=== PATIENT | male | born 1980 | race Caucasian/White ===

== ENCOUNTER → 2017-12-31 | Outpatient (CLI) | payer OTHER | END | disposition home or self-care (01) | LOC: LABWHC1 10:29 | PROVIDERS: ATTEND Psychiatry & Neurology Neurology | DX: G40.209 Localization-related (focal) (partial) symptomatic epilepsy and epileptic syndromes with complex partial seizures, not intractable, without status epilepticus (principal) | CPT/HCPCS: 36415; 80175 ==

== ENCOUNTER → 2018-01-05 | Outpatient (CLI) | payer OTHER ==
[2018-01-05 12:05] LABS: Cholesterol 190 mg/dL (<200); HDL Cholesterol 31 mg/dL (40-60)
[2018-01-05 12:18] LABS: Triglycerides 1000 mg/dL (<150)
== END | disposition home or self-care (01) ==
LOC: LABWHC1 11:24
PROVIDERS: ATTEND Physician Assistant Medical
DX: E11.65 Type 2 diabetes mellitus with hyperglycemia (principal); E78.5 Hyperlipidemia, unspecified; E55.9 Vitamin D deficiency, unspecified
CPT/HCPCS: 36415; 80061; 82306

== ENCOUNTER → 2018-10-01 | Outpatient (CLI) | payer OTHER | LOC: LABWHC1 10:37 | PROVIDERS: ATTEND Psychiatry & Neurology Neurology | DX: G40.209 Localization-related (focal) (partial) symptomatic epilepsy and epileptic syndromes with complex partial seizures, not intractable, without status epilepticus (principal) | CPT/HCPCS: 36415; 80175 ==

== ENCOUNTER → 2018-10-29 | Outpatient (CLI) | payer OTHER ==
[2018-10-29 09:11] LABS: Basophils # (A) 0.1 k/uL (0-0.2); Basophils % (A) 1 %; Eosinophils # (A) 0.3 k/uL (0-0.7); Eosinophils % (A) 2 %; HCT 48.9 % (39.0-53.0); Lymphocytes # (A) 3.8 k/uL (1.0-4.8); Lymphocytes % (A) 21 %; MCHC 32.8 g/dL (31.0-37.0); MCV 94.4 fL (80.0-100.0); Mean Platelet Volume 6.2; Monocytes % (A) 5 %; Neutrophils % (A) 70 %; Platelet Count 282 k/uL (150-450); RBC 5.18 m/uL (4.30-5.90); RDW 13.8 % (11.5-15.5); WBC 18.5 k/uL (3.8-10.6)
[2018-10-29 16:07] LABS: Carbamazepine (Tegretol) 6.8 ug/mL (4.0-12.0)
[2018-10-29 16:35] LABS: Folate, Serum 8.2 ng/mL; Vitamin D 25 Hydroxy 24.2 ng/mL (30.0-100.0)
[2018-10-29 17:12] LABS: ALT 37 U/L (10-49); AST 21 U/L (14-35); Albumin/Globulin Ratio 2.15 (1.60-3.17); Alkaline Phosphatase 59 U/L (41-126); Bilirubin, Conjugated <0.20 mg/dL (0.20-0.40); Calcium 9.9 mg/dL (8.7-10.3); Carbon Dioxide 27.5 mmol/L (21.6-31.8); Chloride 97 mmol/L (96-109); Cholesterol 186 mg/dL (0-200); Glucose 182 mg/dL (70-110); Magnesium 1.8 mg/dL (1.5-2.4); Potassium 4.7 mmol/L (3.5-5.5); Sodium 133 mmol/L (135-145); Total Bilirubin 0.3 mg/dL (0.3-1.2); Total Protein 6.3 g/dL (6.2-8.2)
== END | disposition home or self-care (01) ==
LOC: LABWHC1 08:28
PROVIDERS: ATTEND Psychiatry & Neurology Psychiatry
DX: F25.1 Schizoaffective disorder, depressive type (principal)
CPT/HCPCS: 36415; 80053; 80061; 80156; 82248; 82306; 82607; 82746; 83036; 83540; 83721; 83735; 84439; 84443; 85025

== ENCOUNTER → 2018-12-28 | Outpatient (CLI) | payer OTHER ==
[2018-12-28 17:04] LABS: Anion Gap 8.1 mmol/L (4.00-12.00); Calcium 10.1 mg/dL (8.7-10.3); Carbon Dioxide 24.9 mmol/L (21.6-31.8); Lithium 0.5 mmol/L (1.0-1.2); Potassium 4.1 mmol/L (3.5-5.5); T4, Free (Free Thyroxine) 1.4 ng/dL (0.80-1.80)
== END ==
LOC: LABWHC1 08:06
PROVIDERS: ATTEND Physician Assistant
DX: F25.1 Schizoaffective disorder, depressive type (principal); Z79.899 Other long term (current) drug therapy
CPT/HCPCS: 36415; 80048; 80178; 84439; 84443

== ENCOUNTER → 2019-01-07 | Outpatient (CLI) | payer OTHER ==
[2019-01-07 16:20] LABS: T4, Free (Free Thyroxine) 1.2 ng/dL (0.80-1.80)
[2019-01-07 16:21] LABS: Anion Gap 5.4 mmol/L (4.00-12.00); Calcium 9.7 mg/dL (8.7-10.3); Carbon Dioxide 27.6 mmol/L (21.6-31.8); Lithium 0.8 mmol/L (1.0-1.2); Potassium 4.8 mmol/L (3.5-5.5)
== END | disposition home or self-care (01) ==
LOC: LABWHC1 08:57
PROVIDERS: ATTEND Physician Assistant
DX: F25.1 Schizoaffective disorder, depressive type (principal); Z79.899 Other long term (current) drug therapy
CPT/HCPCS: 36415; 80048; 80178; 84439; 84443

== ENCOUNTER → 2019-01-22 | Outpatient (CLI) | payer OTHER ==
[2019-01-22 19:08] LABS: Anion Gap 12.5 mmol/L (4.00-12.00); Calcium 11.3 mg/dL (8.7-10.3); Carbon Dioxide 20.5 mmol/L (21.6-31.8); Lithium 0.7 mmol/L (1.0-1.2)
== END ==
LOC: LABWHC1 07:46
PROVIDERS: ATTEND Physician Assistant
DX: G40.209 Localization-related (focal) (partial) symptomatic epilepsy and epileptic syndromes with complex partial seizures, not intractable, without status epilepticus (principal); Z79.899 Other long term (current) drug therapy
CPT/HCPCS: 36415; 80048; 80175; 80178

== ENCOUNTER → 2019-01-27 | Outpatient (CLI) | payer OTHER | END | disposition home or self-care (01) | LOC: LABWHC1 10:01 | PROVIDERS: ATTEND Internal Medicine | DX: Z53.9 Procedure and treatment not carried out, unspecified reason (principal) ==

== ENCOUNTER → 2019-05-04 | Outpatient (CLI) | payer OTHER ==
--- NOTE | 2019-05-04 08:55 | XR ---
EXAMINATION TYPE: XR Hip Complete RT DATE OF EXAM: 05/04/2019 COMPARISON: NONE HISTORY: 39-year-old male chronic pain TECHNIQUE: 2 views FINDINGS: Hip joint space appears maintained. No acute fracture, subluxation, or dislocation. IMPRESSION: No acute osseous abnormality seen.
[2019-05-05 14:21] LABS: Lamotrigine (Lamictal) 8.5 ug/mL (2.0-15.0)
[2019-05-06 09:29] LABS: Topiramate <0.5 ug/mL (2.0-20.0)
== END | disposition home or self-care (01) ==
LOC: LABWHC1 07:34
PROVIDERS: ATTEND Psychiatry & Neurology Neurology
DX: G40.209 Localization-related (focal) (partial) symptomatic epilepsy and epileptic syndromes with complex partial seizures, not intractable, without status epilepticus (principal)
CPT/HCPCS: 36415; 73502; 80175; 80201

== ENCOUNTER → 2019-06-02 | Outpatient (CLI) | payer OTHER ==
[2019-06-02 17:31] LABS: Hemoglobin A1C 6.2 % (4.0-6.0)
[2019-06-04 09:15] LABS: Lamotrigine (Lamictal) 7.6 ug/mL (2.0-15.0)
== END | disposition home or self-care (01) ==
LOC: LABWHC1 08:38
PROVIDERS: ATTEND Internal Medicine
DX: G40.209 Localization-related (focal) (partial) symptomatic epilepsy and epileptic syndromes with complex partial seizures, not intractable, without status epilepticus (principal); E11.65 Type 2 diabetes mellitus with hyperglycemia
CPT/HCPCS: 36415; 80175; 80201; 83036

== ENCOUNTER → 2019-08-17 | Outpatient (CLI) | payer OTHER ==
[2019-08-17 15:12] LABS: HCT 47.9 % (39.0-53.0); HGB 16.3 gm/dL (13.0-17.5); MCH 31.9 pg (25.0-35.0); MCHC 34.1 g/dL (31.0-37.0); MCV 93.3 fL (80.0-100.0); Mean Platelet Volume 6.7; Platelet Count 231 k/uL (150-450); RBC 5.13 m/uL (4.30-5.90); RDW 12.8 % (11.5-15.5); WBC 18.9 k/uL (3.8-10.6)
== END | disposition home or self-care (01) ==
LOC: LABWHC1 14:44
PROVIDERS: ATTEND Podiatrist Foot & Ankle Surgery
DX: A49.9 Bacterial infection, unspecified (principal)
CPT/HCPCS: 36415; 85027

== ENCOUNTER → 2019-10-15 | Outpatient (CLI) | payer OTHER ==
[2019-10-15 11:50] LABS: African American GFR (CKD) 110.2 (60.0-200.0); Anion Gap 9.9 mmol/L (4.00-12.00); Calcium 10.1 mg/dL (8.7-10.3); Carbon Dioxide 28.1 mmol/L (21.6-31.8); Chol/HDL Ratio 6.32; Non-African American GFR(CKD) 95.1 (60.0-200.0); Potassium 4.3 mmol/L (3.5-5.5)
[2019-10-15 13:54] LABS: Hemoglobin A1C 6.5 % (4.0-6.0)
[2019-10-15 21:20] LABS: Urine Creatinine 120.3 mg/dL
== END | disposition home or self-care (01) ==
LOC: LABWHC1 06:55
PROVIDERS: ATTEND Internal Medicine
DX: E11.65 Type 2 diabetes mellitus with hyperglycemia (principal)
CPT/HCPCS: 36415; 80048; 80061; 82043; 82570; 83036; 83721; 84300

== ENCOUNTER → 2019-12-10 | Day surgery (SDC) | payer OTHER ==
[2019-12-07 11:43] VITALS: BMI 28.9
[~2019-12-10] MED LIST: LACTATED RINGERS 1,000 ML IV ONE; LIDOCAINE 1% (10MG/ML) FOR IV START SQ ONE; PROPOFOL 10 MG/ML 20 ML VIAL IV ONE
[2019-12-10 07:15] VITALS: RESP 16; TEMP 97
[2019-12-10 07:22] LABS: Glucose,Whole Blood 134 mg/dL (75-99)
--- NOTE | 2019-12-10 08:07 | P.PCN ---
Date of Procedure: 12/10/19 Procedure(s) Performed: BRIEF HISTORY: Patient is a 39-year-old pleasant male scheduled for an elective colonoscopy as a part of evaluation of intermittent rectal bleeding for the last few months duration. He has bleeding almost on a regular basis. He denies any significant change in bowel habits PROCEDURE PERFORMED: Colonoscopy with snare polypectomy. PREOPERATIVE DIAGNOSIS: Intermittent rectal bleeding. IV sedation per Anesthesia. PROCEDURE: After informed consent was obtained, the patient, was brought into the endoscopy unit. IV sedation was administered by Anesthesia under continuous monitoring. Digital rectal examination was normal. Initially the Olympus CF-160 flexible video colonoscope was then inserted in the rectum, gradually advanced into the cecum without any difficulty. Careful examination was performed as the scope was gradually being withdrawn. Ileocecal valve and the appendiceal orifice were visualized and appeared normal. Prep was excellent. Mucosa of the cecum, ascending colon, transverse colon, descending colon, appeared normal. In the sigmoid colon There was a 1 cm broad-based polyp removed by snare polypectomy. In the rectosigmoid colon there was a 1 cm polyp removed by snare polypectomy. Rest of the sigmoid colon, and rectum appeared normal. Retroflexion was performed in the rectum and weight 2 internal hemorrhoids were seen. The patient tolerated the procedure well. IMPRESSION: 1 cm sigmoid colon polyp status post polypectomy 1 cm rectosigmoid polyp status post polypectomy Grade 2 internal hemorrhoids. RECOMMENDATIONS: Findings of this examination were discussed with the patient as well as a family. He was advised to follow with the biopsy results. If the biopsy shows an adenoma he can have a repeat colonoscopy in 3 years. In the meantime he was advised to be a high-fiber diet and take fiber supplements and regular basis and avoid straining and constipation.
[2019-12-10 08:22] VITALS: BP 124/93; PULSE 83
== END ==
LOC: ORWHC2ENDO 06:48
PROVIDERS: ATTEND Internal Medicine Gastroenterology
DX: D12.7 Benign neoplasm of rectosigmoid junction (principal); D12.5 Benign neoplasm of sigmoid colon; K64.1 Second degree hemorrhoids; I10 Essential (primary) hypertension; E78.5 Hyperlipidemia, unspecified; J44.9 Chronic obstructive pulmonary disease, unspecified; E11.9 Type 2 diabetes mellitus without complications; F31.9 Bipolar disorder, unspecified; R56.9 Unspecified convulsions; K21.9 Gastro-esophageal reflux disease without esophagitis; F17.200 Nicotine dependence, unspecified, uncomplicated; Z79.890 Hormone replacement therapy; Z79.899 Other long term (current) drug therapy; Z79.4 Long term (current) use of insulin; Z79.82 Long term (current) use of aspirin; Z97.2 Presence of dental prosthetic device (complete) (partial); Z98.890 Other specified postprocedural states; Z90.79 Acquired absence of other genital organ(s)
CPT/HCPCS: 88305; 45385; J2704

== ENCOUNTER → 2020-08-01 | Outpatient (CLI) | payer OTHER | END | disposition home or self-care (01) | LOC: LABWHC1 13:29 | PROVIDERS: ATTEND Surgery | DX: U07.1 COVID-19 (principal) ==

== ENCOUNTER → 2020-08-07 | Outpatient (CLI) | payer OTHER ==
[2020-08-08 08:20] LABS: Lamotrigine (Lamictal) 6.1 ug/mL (2.0-15.0)
== END | disposition home or self-care (01) ==
LOC: LABWHC1 11:03
PROVIDERS: ATTEND Psychiatry & Neurology Neurology
DX: G40.209 Localization-related (focal) (partial) symptomatic epilepsy and epileptic syndromes with complex partial seizures, not intractable, without status epilepticus (principal)
CPT/HCPCS: 36415; 80175; 80201

== ENCOUNTER → 2020-08-07 | Outpatient (CLI) | payer OTHER ==
[2020-08-07 15:34] LABS: HCT 39.6 % (39.0-53.0); HGB 13.7 gm/dL (13.0-17.5); MCH 31.7 pg (25.0-35.0); MCHC 34.7 g/dL (31.0-37.0); MCV 91.6 fL (80.0-100.0); Mean Platelet Volume 6.7; Platelet Count 234 k/uL (150-450); RBC 4.33 m/uL (4.30-5.90); RDW 14.1 % (11.5-15.5); WBC 11.5 k/uL (3.8-10.6)
[2020-08-07 15:41] LABS: African American GFR (CKD) >90 (>60 ml/min/1.73 sqM); Blood Urea Nitrogen 15 mg/dL (9-20); Non-African American GFR(CKD) >90 (>60 ml/min/1.73 sqM); Potassium 3.9 mmol/L (3.5-5.1)
== END | disposition home or self-care (01) ==
LOC: LABPAT 10:59
PROVIDERS: ATTEND Surgery
DX: Z01.818 Encounter for other preprocedural examination (principal); K43.2 Incisional hernia without obstruction or gangrene; I10 Essential (primary) hypertension; E10.9 Type 1 diabetes mellitus without complications; Z79.4 Long term (current) use of insulin; Z79.899 Other long term (current) drug therapy
CPT/HCPCS: 82565; 84132; 84520; 85027; 86850; 86900; 86901; 93005

== ENCOUNTER 2020-08-08 08:42 | Day surgery (SDC) | payer OTHER ==
[2020-08-04 12:00] VITALS: BMI 29.0
[~2020-08-08 08:42] MED LIST changes: +DEXAMETHASONE SOD PHOSPHATE 4 MG/ML 1 ML VIAL IV ONE; +HEPARIN SODIUM,PORCINE 5,000 UNIT/ML 1 ML VIAL SQ ONE; -LACTATED RINGERS 1,000 ML IV ONE; +LACTATED RINGERS 1,000 ML IV SCH; +LIDOCAINE 1% (10MG/ML) FOR IV START INTRADERMA PRN; -LIDOCAINE 1% (10MG/ML) FOR IV START SQ ONE; +MIDAZOLAM 2 MG/2 ML VIAL IV PRN; +ONDANSETRON 4 MG/2 ML VIAL IVP ONE; -PROPOFOL 10 MG/ML 20 ML VIAL IV ONE
[2020-08-08 09:13] LABS: Glucose,Whole Blood 169 mg/dL (75-99)
[2020-08-08] MEDS ORDERED: GLYCOPYRROLATE 0.2 MG/ML 2 ML VIAL ONE (10:26)
[2020-08-08] MEDS ORDERED: MIDAZOLAM 2 MG/2 ML VIAL ONE (10:26)
[2020-08-08] MEDS ORDERED: ROCURONIUM 10 MG/ML (10 ML VIAL) IV ONE (10:26)
[2020-08-08] MEDS ORDERED: KETOROLAC 15 MG/ML 1 ML VIAL ONE (10:26)
[2020-08-08] MEDS ORDERED: fentaNYL (PF) 50 MCG/ML 2 ML AMP ONE (10:26)
[2020-08-08] MEDS ORDERED: SUCCINYLCHOLINE CHLORIDE 100 MG/5 ML SYR IV ONE (10:26)
[2020-08-08] MEDS ORDERED: NEOSTIGMINE 1 MG/ML 10 ML VIAL ONE (10:26)
[2020-08-08] MEDS ORDERED: LIDOCAINE 1% INJ 10MG/ML (20 ML MDV) ONE (10:26)
[2020-08-08] MEDS ORDERED: LIDOCAINE 1%-EPI 1:100,000 20 ML VIAL SQ ONE (10:50)
--- NOTE | 2020-08-08 11:49 | P.OP ---
Date of Procedure: 08/08/20 Preoperative Diagnosis: Incisional hernia Postoperative Diagnosis: Incisional hernia Procedure(s) Performed: Robotic incisional hernia repair with mesh placement Anesthesia: ARLIN Surgeon: Jay Nelson Pathology: none sent Condition: stable Disposition: same day Indications for Procedure: 40-year-old male presented due to pain secondary to incisional hernia. He has had a previous umbilical hernia repair and states that he does have a bulge and pain around his hernia site. On exam, patient was noted to have a palpable hernia and this was confirmed with CT of the abdomen and pelvis. He presents today for robotic hernia repair. Risks, benefits and alternatives were provided to the patient and the patient did provide consent prior to attending the operating suite. Operative Findings: Incisional hernia containing omentum Description of Procedure: The patient was brought into the operating suite and placed in supine position. Gen. anesthesia with endotracheal intubation was performed as per anesthesia team. The right arm was tucked against the body and a footboard was applied. Chlorhexidine was used to prep the skin followed by application of sterile drapes. A timeout was performed to verify correct patient and correct procedure. Patient was confirmed to received perioperative IV antibiotics, bilateral SCDs and subcutaneous heparin for DVT prophylaxis. A 5 mm skin incision was made along the left midaxillary line at [place] point and the abdomen was entered under direct visualization using a Visiport. Pneumoperitoneum was achieved. The umbilical hernia was clearly visualized. An additional 8 mm trocar was placed in the left lower abdomen and a 12 mm trocar was placed in the mid left mid abdomen. The initial 5 mm trocar was upsized to an 8 mm trocar. The da Jessica robot was undocked. The 30 robotic camera was u sed. A robotic prograsp and monopolar scissors were inserted through the 8 mm robotic trochars. The hernia defect contained preperitoneal fat and omentum which were reduced using gentle traction and countertraction method. The falciform ligament was divided using monopolar scissors close to the anterior abdominal wall to create a landing zone for the mesh. A Switchfly system circular mesh was rolled and introduced to the abdominal cavity via the 12 mm trocar. The hernia defect was closed primarily with running suture using oh be lock by taking 1 cm bite on the fascia on either side of the defect. A Jaiden Guillory device was inserted through the middle of the hernia defect and the stay suture on the mesh was grasped to elevate the mesh against the anterior abdominal wall. The balloon was then inflated. The mesh was circumferentially sutured to the peritoneum of the anterior abdominal wall using 20V lock without any folds or kinks. The robot was then undocked. Camera was reinserted. All trocar sites were examined. No evidence of bleeding. The 12 mm trocar site was closed using transfer fascial suture of 0 Vicryl which were placed under direct visualization using a Jaiden-Bella device. The pneumoretroperitoneum was evacuated and all the skin incisions were closed using 4-0 Vicryl followed by Dermabond skin glue. The sponge, instrument and needle count were correct 2. Abdominal binder was applied. The patient was extubated and taken to postanesthesia care unit in stable condition.
[2020-08-08 11:50] VITALS: TEMP 97.4
[2020-08-08] MEDS: HYDROmorphone 0.5 MG/0.5 ML SYRINGE IVP PRN ×3 (11:56→12:09)
[2020-08-08] MEDS ORDERED: LACTATED RINGERS 1,000 ML IV ONE (12:05)
[2020-08-08 12:48] LABS: Glucose,Whole Blood 207 mg/dL (75-99)
[2020-08-08 12:52] VITALS: PULSE 66
[2020-08-08] MEDS ORDERED: HYDROcodone/APAP 5-325MG 1 EACH TAB ONE (12:56)
[2020-08-08] MEDS ORDERED: HYDROcodone/APAP 5-325MG 1 EACH TAB PO ONE (12:58)
[2020-08-08 13:14] VITALS: BP 117/72; RESP 16
== END 2020-08-08 13:38 | disposition home or self-care (01) ==
LOC: OR 08:42
PROVIDERS: ATTEND Surgery
DX: K42.0 Umbilical hernia with obstruction, without gangrene (principal); E11.9 Type 2 diabetes mellitus without complications; E78.5 Hyperlipidemia, unspecified; J45.909 Unspecified asthma, uncomplicated; I10 Essential (primary) hypertension; E87.1 Hypo-osmolality and hyponatremia; E53.8 Deficiency of other specified B group vitamins; E55.9 Vitamin D deficiency, unspecified; E03.9 Hypothyroidism, unspecified; G40.909 Epilepsy, unspecified, not intractable, without status epilepticus; K21.9 Gastro-esophageal reflux disease without esophagitis; F17.210 Nicotine dependence, cigarettes, uncomplicated; J44.9 Chronic obstructive pulmonary disease, unspecified; R56.9 Unspecified convulsions; F20.9 Schizophrenia, unspecified; Z87.19 Personal history of other diseases of the digestive system; Z98.890 Other specified postprocedural states; Z97.2 Presence of dental prosthetic device (complete) (partial); Z80.9 Family history of malignant neoplasm, unspecified; Z79.82 Long term (current) use of aspirin; Z79.890 Hormone replacement therapy; Z79.4 Long term (current) use of insulin; Z79.899 Other long term (current) drug therapy; Z88.8 Allergy status to other drugs, medicaments and biological substances
CPT/HCPCS: 49653; S2900; 86850; 86900; 86901

== ENCOUNTER → 2020-10-06 | Outpatient (CLI) | payer OTHER ==
[2020-10-06 16:14] LABS: Basophils % (A) 1 %; Eosinophils # (A) 0.2 k/uL (0-0.7); Eosinophils % (A) 2 %; HCT 45.6 % (39.0-53.0); HGB 14.8 gm/dL (13.0-17.5); Lymphocytes # (A) 1.9 k/uL (1.0-4.8); Lymphocytes % (A) 19 %; MCH 28.9 pg (25.0-35.0); MCHC 32.4 g/dL (31.0-37.0); MCV 89.3 fL (80.0-100.0); Mean Platelet Volume 6.7; Monocytes # (A) 0.5 k/uL (0-1.0); Monocytes % (A) 6 %; Neutrophils # (A) 6.5 k/uL (1.3-7.7); Neutrophils % (A) 68 %; Platelet Count 208 k/uL (150-450); RBC 5.11 m/uL (4.30-5.90); RDW 13.6 % (11.5-15.5); WBC 9.6 k/uL (3.8-10.6)
[2020-10-07 00:57] LABS: Urine Creatinine 138.7 mg/dL
[2020-10-07 03:47] LABS: Hemoglobin A1C 6.7 % (4.0-6.0)
[2020-10-07 03:55] LABS: African American GFR (CKD) 109.4 (60.0-200.0); Anion Gap 10.2 mmol/L (4.00-12.00); Calcium 10.1 mg/dL (8.7-10.3); Carbon Dioxide 27.8 mmol/L (21.6-31.8); Chol/HDL Ratio 5.81; Globulin 2.5 g/dL (1.6-3.3); Magnesium 1.9 mg/dL (1.5-2.4); Non-African American GFR(CKD) 94.4 (60.0-200.0); Total Bilirubin 0.3 mg/dL (0.2-1.2); Total Protein 7.5 g/dL (6.2-8.2)
[2020-10-07 16:03] LABS: Lamotrigine (Lamictal) 7.2 ug/mL (2.0-15.0)
== END | disposition home or self-care (01) ==
LOC: LABWHC1 15:17
PROVIDERS: ATTEND Internal Medicine
DX: G40.209 Localization-related (focal) (partial) symptomatic epilepsy and epileptic syndromes with complex partial seizures, not intractable, without status epilepticus (principal); E11.65 Type 2 diabetes mellitus with hyperglycemia; E55.9 Vitamin D deficiency, unspecified; E78.2 Mixed hyperlipidemia; E03.9 Hypothyroidism, unspecified
CPT/HCPCS: 36415; 80053; 80061; 80175; 80201; 82043; 82306; 82570; 82607; 83036; 83721; 83735; 84439; 84443; 85025

== ENCOUNTER → 2021-05-23 | Outpatient (CLI) | payer OTHER ==
[2021-05-23 14:26] VITALS: BP 130/84; PULSE 87; RESP 18; TEMP 98.5; BMI 26.4
--- NOTE | 2021-05-23 14:30 | P.HPBAR ---
Bariatric H&P - History & Physicial H&P Date: 05/23/21 History & Physicial: Visit/CC: Patient initial contact: Initial weight: Initial weight in pounds: Height: 5 ft 5 in Initial BMI: Last weight: Current weight: 72.121 kg Current weight in pounds: Current BMI: [place] body weight (based on NIH guidelines): Excess body weight loss: The patient is a 41 year-old M who presents for Bariatric Assessment. Highest weight of 330 pounds 9 years ago. Lowest weight is present. He did it on his own. He has seen the corporate compliance officer for severe panniculitis. He has lower back pain from his pannus. He has tried creams along the skin for severe panniculitis. He sees a neurologist for his back pain and reports his skin is adding to his back pain. He reports troubles with grooming and activities of daily living. He presents today for panniculectomy. He has lost over 140 pounds maintained. He has quit eating sweets. He has grade 3 panniculosis. Weight of pannus over 15 pounds. Recommend panniculectomy Request letters from neurologist and corporate compliance officer. Urine nicotine Correct vitamin deficiencies. 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, [facility] Past Anesthesia/Blood Transfusion Reactions: No Reported Reaction Past Psychological History: Anxiety, Bipolar, Depression, Panic Disorder, Schizophrenia Additional Psychological History / Comment(s): manic depression, paranoia Past Alcohol Use History: Rare Additional Past Alcohol Use History / Comment(s): smoking 1/2 PPD, started smoking age 13 Past Drug Use History: None Reported Additional Drug Use History / Comment(s): CBD oil - Past Family History Sister(s) Family Medical History: Cancer Mother Family Medical History: Cancer Father Family Medical History: Cancer Bariatric Checklist Checklist: Plan: Checklist: EGD: 1. Hiatal hernia: 2. H. Pylori: HgbA1c: Vitamin D: Smoking: Current every day smoker Primary care physician referral: Psychiatry clearance: Cardiology clearance: Sleep study: Diet journal: VTE risk score: VTE risk level: Rehab needs at discharge:
== END | disposition home or self-care (01) ==
LOC: BARWHC3 14:05
PROVIDERS: ATTEND Surgery Plastic and Reconstructive Surgery
DX: E66.01 Morbid (severe) obesity due to excess calories (principal); Z68.26 Body mass index [BMI] 26.0-26.9, adult
CPT/HCPCS: 99211

== ENCOUNTER → 2021-06-13 | Outpatient (CLI) | payer OTHER ==
[2021-06-13 12:43] LABS: INR 0.9 (<1.2); Prothrombin Time 9.7 sec (9.0-12.0)
[2021-06-13 19:43] LABS: HCT 40.2 % (39.6-50.0); HGB 12.5 g/dL (13.0-17.0); MCH 27.2 pg (27.0-32.0); MCHC 31.1 g/dL (32.0-37.0); MCV 87.6 fL (80.0-97.0); Platelet Count 245 X 10*3/uL (140-440); RBC 4.59 X 10*6/uL (4.40-5.60); RDW 14.5 % (11.5-14.5); WBC 8.89 X 10*3/uL (4.50-10.00)
[2021-06-13 21:21] LABS: Hemoglobin A1C 7.6 % (4.0-6.0)
[2021-06-14 08:30] LABS: Lamotrigine (Lamictal) 8.1 ug/mL (2.0-15.0)
[2021-06-14 12:25] LABS: Topiramate <0.5 ug/mL (2.0-20.0)
[2021-06-14 13:26] LABS: Zinc, Serum 67 ug/dL (60-130)
[2021-06-15 07:01] LABS: Vitamin A 57 ug/dL (38-106)
== END | disposition home or self-care (01) ==
LOC: LABWHC1 11:40
PROVIDERS: ATTEND Surgery Plastic and Reconstructive Surgery
DX: G40.209 Localization-related (focal) (partial) symptomatic epilepsy and epileptic syndromes with complex partial seizures, not intractable, without status epilepticus (principal); Z71.51 Drug abuse counseling and surveillance of drug abuser; D50.8 Other iron deficiency anemias; E44.0 Moderate protein-calorie malnutrition; E55.9 Vitamin D deficiency, unspecified; K74.1 Hepatic sclerosis; N19 Unspecified kidney failure; K50.90 Crohn's disease, unspecified, without complications; E89.1 Postprocedural hypoinsulinemia
CPT/HCPCS: 84255; 84134; 84425; 80061; 80053; 80175; 80201; 82607; 82728; 82525; 82746; 83540; 83550; 83735; 84100; 84443; 84590; 84630; 85027; 85610; 85730; 82306; 83970; 83036; 80307; 93005; 36415; G0480; G0482; 80323

== ENCOUNTER → 2021-06-26 | Outpatient (CLI) | payer OTHER | END | disposition home or self-care (01) | LOC: RADNMMAIN 10:56 | PROVIDERS: ATTEND Psychiatry & Neurology Neurology | DX: Z53.9 Procedure and treatment not carried out, unspecified reason (principal) ==

== ENCOUNTER → 2021-10-24 | Outpatient (CLI) | payer OTHER ==
[2021-10-24 11:40] LABS: HCT 41.5 % (39.0-53.0); HGB 13.5 gm/dL (13.0-17.5); MCH 27.8 pg (25.0-35.0); MCHC 32.4 g/dL (31.0-37.0); MCV 85.7 fL (80.0-100.0); Mean Platelet Volume 8.3; Platelet Count 189 k/uL (150-450); RBC 4.85 m/uL (4.30-5.90); RDW 15.1 % (11.5-15.5); WBC 8.6 k/uL (3.8-10.6)
[2021-10-24 22:44] LABS: African American GFR (CKD) 125.8 (60.0-200.0); Albumin 3.5 g/dL (3.8-4.9); Albumin/Globulin Ratio 0.86 (1.60-3.17); BUN/Creat Ratio 17.6 Ratio (12.00-20.00); Blood Urea Nitrogen 15.1 mg/dL (9.0-27.0); Carbon Dioxide 17.1 mmol/L (20.0-27.5); Non-African American GFR(CKD) 108.6 (60.0-200.0); Potassium 5.1 mmol/L (3.5-5.5); Total Bilirubin 0.3 mg/dL (0.30-1.20); Total Protein 7.5 g/dL (6.2-8.2)
== END | disposition home or self-care (01) ==
LOC: LABWHC1 09:45
PROVIDERS: ATTEND Psychiatry & Neurology Neurology
DX: R56.9 Unspecified convulsions (principal)
CPT/HCPCS: 36415; 80053; 80175; 85027

== ENCOUNTER → 2022-02-06 | Outpatient (CLI) | payer OTHER ==
[2022-02-06 13:46] LABS: INR 0.9 (<1.2); Partial Thromboplastin Time 25.7 sec (22.0-30.0); Prothrombin Time 9.9 sec (9.0-12.0)
[2022-02-06 18:36] LABS: HCT 44.8 % (39.6-50.0); HGB 13.1 g/dL (13.0-17.0); MCH 23.7 pg (27.0-32.0); MCHC 29.2 g/dL (32.0-37.0); MCV 81.2 fL (80.0-97.0); Mean Platelet Volume 10.4 fL (9.5-12.2); NRBC Per 100 WBC 0 /100 WBCS (0.0-0.0); Platelet Count 265 X 10*3/uL (140-440); RBC 5.52 X 10*6/uL (4.40-5.60); RDW 18.4 % (11.5-14.5); WBC 8.62 X 10*3/uL (4.50-10.00)
[2022-02-06 18:52] LABS: % Iron Saturation 4.47 (15.00-50.00); Ferritin 12.6 ng/mL (22.0-322.0); Iron 24 ug/dL (65-175); Magnesium 2.2 mg/dL (1.5-2.4); Phosphorus 2.9 mg/dL (2.4-5.1); Total Iron Binding Capacity 539 ug/dL (228-460)
[2022-02-06 19:03] LABS: Chol/HDL Ratio 8.11 Ratio
[2022-02-06 19:08] LABS: Prealbumin 16.9 mg/dL (18.0-42.0)
[2022-02-06 19:37] LABS: ALT <5 U/L (10-49); AST <5 U/L (14-35); African American GFR (CKD) 130.2 (60.0-200.0); Albumin 4.6 g/dL (3.8-4.9); Alkaline Phosphatase 113 U/L (41-126); BUN/Creat Ratio 13.16 Ratio (12.00-20.00); Blood Urea Nitrogen 10.4 mg/dL (9.0-27.0); Calcium 9.8 mg/dL (8.7-10.3); Carbon Dioxide 24.5 mmol/L (20.0-27.5); Chloride 102 mmol/L (96-109); Globulin 3.6 g/dL (1.6-3.3); Glucose 148 mg/dL (70-110); Non-African American GFR(CKD) 112.3 (60.0-200.0); Potassium 4.5 mmol/L (3.5-5.5); Sodium 140 mmol/L (135-145); Total Bilirubin <0.15 mg/dL (0.30-1.20); Total Protein 8.2 g/dL (6.2-8.2)
[2022-02-07 06:32] LABS: Microalbumin Creatinine Ratio 14 mg/g Creat (0-30)
[2022-02-07 09:01] LABS: Lamotrigine (Lamictal) 7.5 ug/mL (2.0-15.0)
[2022-02-12 09:19] LABS: Anabasine Urine 23.1 ng/mL (<2.0)
== END | disposition home or self-care (01) ==
LOC: LABWHC1 11:45
PROVIDERS: ATTEND Surgery Plastic and Reconstructive Surgery
DX: G40.209 Localization-related (focal) (partial) symptomatic epilepsy and epileptic syndromes with complex partial seizures, not intractable, without status epilepticus (principal); E11.65 Type 2 diabetes mellitus with hyperglycemia; E78.5 Hyperlipidemia, unspecified; D50.8 Other iron deficiency anemias; K91.2 Postsurgical malabsorption, not elsewhere classified; E44.0 Moderate protein-calorie malnutrition; E45 Retarded development following protein-calorie malnutrition; K74.1 Hepatic sclerosis; N19 Unspecified kidney failure; T56.894A Toxic effect of other metals, undetermined, initial encounter
CPT/HCPCS: 84255; 84134; 84425; 80061; 80053; 80175; 82607; 82728; 82525; 82746; 83540; 83550; 83735; 84100; 84443; 84590; 84630; 85027; 85610; 85730; 83721; 82306; 83970; 82043; 82570; 83036; 80307; 36415; G0480; 80323

== ENCOUNTER → 2022-03-06 | Outpatient (CLI) | payer OTHER ==
--- NOTE | 2022-03-07 07:54 | NM ---
EXAMINATION TYPE: NM gastric emptying static DATE OF EXAM: 03/06/2022 COMPARISON: NONE HISTORY: Gastroesophageal reflux Following administration of 2.1 mCi Tc 99m Sulfur Colloid with 4 OZ EGGS , 1 CUP WATER, projection im ages of the abdomen were obtained 10 minutes post ingestion. Patient Emptying Values 1 Hour 40 % 2 Hours 98 % 3 Hours N/A % 4 Hours N/A %. Patient was unable to return for 3 and 4 hour images. Stomach essentially completely emptied. Gastroesophagel reflux: None IMPRESSION: Gastric emptying: Normal Gastroesophageal reflux: None during the times imaged Gastric emptying normal percentage values: 30 minutes: <70% of retention (> 30% emptying) suggests abnormally fast emptying. 60 minutes: <90% retention (>10% emptying) is normal; less than 30% retention (>70% emptying) suggest s abnormally rapid emptying. 90 minutes: <65% retention (> 35% emptying) is normal. 120 minutes: <60% retention (> 40% emptying) is normal. 180 minutes: <30% retention (> 70% emptying) is normal. Gastric emptying T-1/2: Solid: The normal range is 60-105 minutes Liquid only: Normal range is 10-45 minutes. Liquid only-children: At 60 minutes, normal range is 44-58 % . Liquid only-infants: At 60 minutes, normal range is 32-64 %. Additional references: Gastric Emptying Scintigraphy [email or web address]://[email or web address]
== END | disposition home or self-care (01) ==
LOC: RADNMMAIN 06:38
PROVIDERS: ATTEND Internal Medicine Gastroenterology
DX: K21.9 Gastro-esophageal reflux disease without esophagitis (principal)
CPT/HCPCS: 78264; A9541

== ENCOUNTER → 2022-07-12 | Outpatient (CLI) | payer OTHER ==
[2022-07-13 19:32] LABS: Lamotrigine (Lamictal) 16.3 ug/mL (2.0-15.0)
== END | disposition home or self-care (01) ==
LOC: LABWHC1 12:47
PROVIDERS: ATTEND Psychiatry & Neurology Neurology
DX: G40.209 Localization-related (focal) (partial) symptomatic epilepsy and epileptic syndromes with complex partial seizures, not intractable, without status epilepticus (principal)
CPT/HCPCS: 36415; 80175; 80177; 80183; 84295

== ENCOUNTER → 2022-08-02 | Outpatient (CLI) | payer OTHER | END | disposition home or self-care (01) | LOC: LABWHC1 09:28 | PROVIDERS: ATTEND Psychiatry & Neurology Neurology | DX: G40.209 Localization-related (focal) (partial) symptomatic epilepsy and epileptic syndromes with complex partial seizures, not intractable, without status epilepticus (principal) | CPT/HCPCS: 36415; 80175 ==

== ENCOUNTER → 2022-08-15 | Outpatient (CLI) | payer OTHER ==
[2022-08-15 15:40] LABS: ALT 31 U/L (10-49); AST 26 U/L (14-35); African American GFR (CKD) 130.8 (60.0-200.0); Albumin 4.4 g/dL (3.8-4.9); Albumin/Globulin Ratio 1.65 (1.60-3.17); Alkaline Phosphatase 80 U/L (41-126); BUN/Creat Ratio 14.32 Ratio (12.00-20.00); Bilirubin, Conjugated <0.20 mg/dL (0.20-0.40); Calcium 9.4 mg/dL (8.7-10.3); Carbon Dioxide 28.7 mmol/L (20.0-27.5); Chloride 102 mmol/L (96-109); Chol/HDL Ratio 5.21 Ratio; Globulin 2.7 g/dL (1.6-3.3); Glucose 149 mg/dL (70-110); LDL Cholesterol,Calculated 92.8 mg/dL (0.0-131.0); Non-African American GFR(CKD) 112.8 (60.0-200.0); Potassium 4.3 mmol/L (3.5-5.5); Sodium 141 mmol/L (135-145)
[2022-08-15 16:03] LABS: Basophils # (A) 0.04 X 10*3/uL (0.00-0.10); Basophils % (A) 0.5 %; Eosinophils # (A) 0.42 X 10*3/uL (0.04-0.35); Eosinophils % (A) 5.5 %; HCT 43.7 % (39.6-50.0); HGB 14.3 g/dL (13.0-17.0); Immature Grans, Automated 0.9 %; Lymphocytes # (A) 1.31 X 10*3/uL (0.90-5.00); Lymphocytes % (A) 17.1 %; MCH 29.6 pg (27.0-32.0); MCHC 32.7 g/dL (32.0-37.0); MCV 90.5 fL (80.0-97.0); Mean Platelet Volume 10.5 fL (9.5-12.2); Monocytes % (A) 6.5 %; NRBC Per 100 WBC 0 /100 WBCS (0.0-0.0); Neutrophils # (A) 5.34 X 10*3/uL (1.80-7.70); Neutrophils % (A) 69.5 %; Platelet Count 175 X 10*3/uL (140-440); RBC 4.83 X 10*6/uL (4.40-5.60); RDW 14.8 % (11.5-14.5); WBC 7.68 X 10*3/uL (4.50-10.00)
== END | disposition home or self-care (01) ==
LOC: LABWHC1 10:45
DX: F25.1 Schizoaffective disorder, depressive type (principal); Z79.899 Other long term (current) drug therapy
CPT/HCPCS: 36415; 80053; 80061; 82248; 83036; 84439; 84443; 85025; 93005

== ENCOUNTER → 2022-10-09 | Outpatient (CLI) | payer OTHER ==
[2022-10-09 15:40] VITALS: BP 133/78; PULSE 83; TEMP 98.7; BMI 28.3
--- NOTE | 2022-10-09 16:21 | P.BASOAP ---
Subjective Progress Note Date: 10/09/22 Patient reports he is down from over 1-2 packs a day to 5 cigarettes a day. Strict tobacco cessation and counseling advised. Recommend repeat blood work as last visit is over 8 months ago. Correction of all vitamin deficiencies advised. Objective - Vital Signs Vital signs: Vital Signs Temp 98.7 F 10/09/22 15:34 Pulse 83 10/09/22 15:34 Resp BP 133/78 10/09/22 15:34 Pulse Ox FiO2 Intake & Output 10/08/22 10/09/22 10/09/22 18:59 06:59 18:59 Weight 77.111 kg Assessment/Plan Plan: Date: 10/09/22 Initial Weight: Initial BMI: Current Weight: 77.111 kg Current BMI: 28.3 Type of Surgery: Total Volume in Band: Previous Volume: Volume Removed: Volume Added: Band Size:
== END ==
LOC: BARWHC3 14:54
PROVIDERS: ATTEND Surgery Plastic and Reconstructive Surgery
DX: E66.01 Morbid (severe) obesity due to excess calories (principal); Z53.9 Procedure and treatment not carried out, unspecified reason
CPT/HCPCS: 99211

== ENCOUNTER → 2022-10-09 | Outpatient (CLI) | payer OTHER ==
[2022-10-09 14:31] LABS: Basophils # (A) 0.03 X 10*3/uL (0.00-0.10); Basophils % (A) 0.4 %; Eosinophils # (A) 0.32 X 10*3/uL (0.04-0.35); Eosinophils % (A) 3.9 %; HCT 42.3 % (39.6-50.0); HGB 13.7 g/dL (13.0-17.0); Immature Grans, Automated 0.5 %; Lymphocytes # (A) 1.41 X 10*3/uL (0.90-5.00); MCH 29.7 pg (27.0-32.0); MCHC 32.4 g/dL (32.0-37.0); MCV 91.8 fL (80.0-97.0); Mean Platelet Volume 9.7 fL (9.5-12.2); Monocytes # (A) 0.58 X 10*3/uL (0.20-1.00); NRBC Per 100 WBC 0 /100 WBCS (0.0-0.0); Neutrophils # (A) 5.89 X 10*3/uL (1.80-7.70); Neutrophils % (A) 71.2 %; Platelet Count 175 X 10*3/uL (140-440); RBC 4.61 X 10*6/uL (4.40-5.60); RDW 13.2 % (11.5-14.5); WBC 8.27 X 10*3/uL (4.50-10.00)
[2022-10-09 16:06] LABS: ALT 24 U/L (10-49); AST 22 U/L (14-35); African American GFR (CKD) 122.9 (60.0-200.0); Albumin 4.3 g/dL (3.8-4.9); Albumin/Globulin Ratio 1.79 (1.60-3.17); Alkaline Phosphatase 56 U/L (41-126); BUN/Creat Ratio 11.87 Ratio (12.00-20.00); Bilirubin, Conjugated <0.20 mg/dL (0.20-0.40); Blood Urea Nitrogen 10.6 mg/dL (9.0-27.0); Calcium 9.2 mg/dL (8.7-10.3); Carbon Dioxide 30.6 mmol/L (20.0-27.5); Chloride 101 mmol/L (96-109); Chol/HDL Ratio 3.49 Ratio; Globulin 2.4 g/dL (1.6-3.3); Glucose 109 mg/dL (70-110); LDL Cholesterol,Calculated 57.2 mg/dL (0.0-131.0); Non-African American GFR(CKD) 106.1 (60.0-200.0); Potassium 4.6 mmol/L (3.5-5.5); Sodium 142 mmol/L (135-145); Total Protein 6.7 g/dL (6.2-8.2)
== END | disposition home or self-care (01) ==
LOC: LABWHC1 09:09
PROVIDERS: ATTEND Registered Nurse
DX: F25.1 Schizoaffective disorder, depressive type (principal); I44.0 Atrioventricular block, first degree; R94.31 Abnormal electrocardiogram [ECG] [EKG]; Z79.899 Other long term (current) drug therapy
CPT/HCPCS: 36415; 80053; 80061; 82248; 83036; 84439; 84443; 85025; 93005

== ENCOUNTER → 2023-01-17 | Outpatient (CLI) | payer OTHER | END | disposition home or self-care (01) | LOC: LABWHC1 10:08 | PROVIDERS: ATTEND Nurse Practitioner | DX: R53.83 Other fatigue (principal) | CPT/HCPCS: 36415; 84402; 84403 ==

== ENCOUNTER 2023-01-30 16:58 | Emergency (ER) | payer OTHER ==
[2023-01-30] MEDS ORDERED: KETOROLAC 15 MG/ML 1 ML VIAL IM STA (18:12)
[2023-01-30] MEDS ORDERED: traMADol 50 MG TAB PO STA (18:31)
--- NOTE | 2023-01-30 19:04 | ED ---
Skin/Abscess/FB HPI - General Chief complaint: Skin/Abscess/Foreign Body Stated complaint: R hand pain Time Seen by Provider: 01/30/23 18:03 Source: patient Mode of arrival: ambulatory - History of Present Illness Initial comments: Patient is a 42-year-old male presenting with chief complaint of right hand pain. Patient recently had a biopsy performed by Dr. Newberry. States that today he hit his hand on the edge of a table and is having increased pain around the biopsy site. He is taking Motrin and Tylenol at home for the pain. He has full range of motion with no numbness or tingling. No bleeding, redness, swelling, discharge from the biopsy site. No fevers or chills. - Related Data Home Medications Medication Instructions Recorded Confirmed Haloperidol Decanoate [Haldol D] 200 mg IM QMONTH 07/31/14 10/09/22 [place]-3 Fatty Acids/Fish Oil [Fish 1 cap PO TID 06/20/15 10/09/22 Oil 1,000 mg Softgel] Omeprazole [PriLOSEC] 20 mg PO QAM 04/01/16 10/09/22 Aspirin [Adult Low Dose Aspirin EC] 81 mg PO DAILY 12/07/19 10/09/22 Brivaracetam [Briviact] 50 mg PO BID 12/07/19 10/09/22 Budesonide [Pulmicort Flexhaler] 1 puff INHALATION BID 12/07/19 10/09/22 Fenofibrate Nanocrystallized 145 mg PO DAILY 12/07/19 10/09/22 [Fenofibrate] Fluocinonide 0.05% [Lidex 0.05% 15 applic TOPICAL DIRECTED PRN 12/07/19 10/09/22 cream] Gabapentin [Neurontin] 600 mg PO 1400,2200 12/07/19 10/09/22 Hydrocortisone Cream 1 applic TOPICAL DIRECTED PRN 12/07/19 10/09/22 [Hydrocortisone 2.5% Cream] Ibuprofen [Motrin] 600 mg PO BID PRN 12/07/19 10/09/22 Insulin NPH Hum/Reg Insulin Hm 10 unit SQ HS 12/07/19 10/09/22 [NovoLIN 70-30 100 UNIT/ML VIAL] Insulin NPH Hum/Reg Insulin Hm 28 unit SQ QAM 12/07/19 10/09/22 [NovoLIN 70-30 100 UNIT/ML VIAL] Levothyroxine Sodium [Synthroid] 50 mcg PO QAM 12/07/19 10/09/22 Loratadine [Claritin] 10 mg PO DAILY 12/07/19 10/09/22 Magnesium Oxide 400 mg PO DAILY 12/07/19 10/09/22 Montelukast [Singulair] 10 mg PO HS 12/07/19 10/09/22 Sertraline [Zoloft] 200 mg PO QAM 12/07/19 10/09/22 Topiramate [Topamax] 75 mg PO BID 12/07/19 10/09/22 busPIRone HCL 15 mg PO BID 12/07/19 10/09/22 hydrOXYzine pamoate [Vistaril] 50 mg PO Q4HR PRN 12/07/19 10/09/22 lamoTRIgine [LaMICtal] 275 mg PO BID 12/07/19 10/09/22 lisinopriL 20 mg PO HS 12/07/19 10/09/22 metFORMIN HCL [Glucophage] 1,000 mg PO BID 12/07/19 10/09/22 traZODone HCL [Desyrel] 100 mg PO HS 12/07/19 10/09/22 Cannabidiol (Cbd) [Epidiolex] 0 mg PO DAILY PRN 08/04/20 10/09/22 Previous Rx's Medication Instructions Recorded Nystatin 100,000 Unit/gm Powd 1 applic TOPICAL BID #60 gm 01/23/22 [Mycostatin Powder] Allergies Allergy/AdvReac Type Severity Reaction Status Date / Time ketorolac [From Toradol] Allergy Abdominal Verified 01/30/23 17:47 Pain mirtazapine [From Remeron] Allergy Abdominal Verified 01/30/23 17:47 Pain pioglitazone [From Actos] Allergy Abdominal Verified 01/30/23 17:47 Pain Review of Systems ROS Statement: Those systems with pertinent positive or pertinent negative responses have been documented in the HPI. ROS Other: All systems not noted in ROS Statement are negative. Past Medical History Past Medical History: Asthma, Chest Pain / Angina, COPD, Diabetes Mellitus, GERD/Reflux, Hyperlipidemia, Hypertension, Liver Disease, Seizure Disorder, Skin Disorder Additional Past Medical History / Comment(s): grand mal seizures-"last seizure yrs ago", coughing from cigarettes, hemorrhoid, constipation/diarrhea, hx fatty liver, psoriasis, eczema, back pain History of Any Multi-Drug Resistant Organisms: MRSA Date of last positivie culture/infection: 2019 MDRO Source:: foot Past Surgical History: Hernia Repair, Orthopedic Surgery, Tonsillectomy Additional Past Surgical History / Comment(s): 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, [facility] surgery, sternum partially removed Past Anesthesia/Blood Transfusion Reactions: No Reported Reaction Past Psychological History: Anxiety, Bipolar, Depression, Panic Disorder, Schizophrenia Smoking Status: Current every day smoker, Light tobacco smoker Past Alcohol Use History: Rare Past Drug Use History: None Reported - Past Family History Sister(s) Family Medical History: Cancer Mother Family Medical History: Cancer Father Family Medical History: Cancer General Exam Limitations: no limitations General appearance: alert, in no apparent distress Head exam: Present: atraumatic, normocephalic, normal inspection Eye exam: Present: normal appearance, EOMI. Absent: scleral icterus, periorbital swelling Neck exam: Present: normal inspection, full ROM Neurological exam: Present: alert, oriented X3, CN II-XII intact Psychiatric exam: Present: normal affect, normal mood Skin exam: Present: other (Skin biopsy site to the right hand, there is some scabbing present, no erythema, tenderness, warmth, discharge) Course Vital Signs 01/30/23 01/30/23 17:38 19:09 Temperature 98.7 F 98 F Pulse Rate 76 72 Respiratory 18 16 Rate Blood Pressure 122/84 122/87 O2 Sat by Pulse 98 99 Oximetry Medical Decision Making - Medical Decision Making Was pt. sent in by a medical professional or institution (, PA, INSURANCE WRITER, urgent care, hospital, or fpc...) When possible be specific @ -No Did you speak to anyone other than the patient for history (EMS, parent, family, police, friend...)? What history was obtained from this source @ -No Did you review nursing and triage notes (agree or disagree)? Why? @ -I reviewed and agree with nursing and triage notes Were old charts reviewed (outside hosp., previous admission, EMS record, old EKG, old radiological studies, urgent care reports/EKG's, fpc records)? Report findings @ -No old charts were reviewed Differential Diagnosis (chest pain, altered mental status, abdominal pain women, abdominal pain men, vaginal bleeding, weakness, fever, dyspnea, syncope, headache, dizziness, GI bleed, back pain, seizure, CVA, palpatations, mental health, musculoskeletal)? @ -Differential includes irritation to the biopsy site, fracture, this is not an all inclusive list EKG interpreted by me (3pts min.). @ -As above X-rays interpreted by me (1pt min.). @ -None done CT interpreted by me (1pt min.). @ -None done U/S interpreted by me (1pt. min.). @ -None done What testing was considered but not performed or refused? (CT, X-rays, U/S, labs)? Why? @ -None What meds were considered but not given or refused? Why? @ -None Did you discuss the management of the patient with other professionals (professionals i.e. , PA, INSURANCE WRITER, lab, RT, psych nurse, social work nurse, supervisor color making, teacher, landcare officer, showcase trimmer)? Give summary @ -No Was smoking cessation discussed for >3mins.? @ -No Was critical care preformed (if so, how long)? @ -No Were there social determinants of health that impacted care today? How? (Homelessness, low income, unemployed, alcoholism, drug addiction, transportation, low edu. Level, literacy, decrease access to med. care, nursing home, rehab)? @ -No Was there de-escalation of care discussed even if they declined (Discuss DNR or withdrawal of care, Hospice)? DNR status @ -No What co-morbidities impacted this encounter? (DM, HTN, Smoking, COPD, CAD, Cancer, CVA, ARF, Chemo, Hep., AIDS, mental health diagnosis, sleep apnea, morbid obesity)? @ -None Was patient admitted / discharged? Hospital course, mention meds given and route, prescriptions, significant lab abnormalities, going to OR and other pertinent info. @ -Patient is a 42-year-old male presenting to complaint of pain to the right hand after hitting the area of his recent skin biopsy on a table today. He is neurovascularly intact, full range of motion. Biopsy site is clear of erythema another cellulitic changes. He is given pain medication and discharged home with instructions on supportive management. Follow-up with your dry wall sprayer. Follow-up with PCP. Report back to ER with any new or worsening symptoms. Discussed return parameters and answered all questions. Patient conveyed verbal understanding and agreed to the plan. I discussed this case in detail with my attending Dr. Florez Undiagnosed new problem with uncertain prognosis? @ -No Drug Therapy requiring intensive monitoring for toxicity (Heparin, Nitro, Insulin, Cardizem)? @ -No Were any procedures done? @ -No Diagnosis/symptom? @ -Hand pain Acute, or Chronic, or Acute on Chronic? @ -Acute Uncomplicated (without systemic symptoms) or Complicated (systemic symptoms)? @ -uncomplicated Side effects of treatment? @ -No Exacerbation, Progression, or Severe Exacerbation? @ -No Poses a threat to life or bodily function? How? (Chest pain, [place], MA, pneumonia, PE, COPD, DKA, ARF, appy, cholecystitis, CVA, Diverticulitis, Homicidal, Suicidal, threat to staff... and all critical care pts) @ -No Disposition Clinical Impression: Hand pain Disposition: HOME SELF-CARE Condition: Good Instructions (If sedation given, give patient instructions): Skin Biopsy (DC) Additional Instructions: Follow-up with PCP. Report back to ER with any new or worsening symptoms. Is patient prescribed a controlled substance at d/c from ED?: No Referrals: Ju Alfaro FNPBC [Primary Care Provider] - 1-2 days Time of Disposition: 18:59
[2023-01-30 19:11] VITALS: BP 122/87; PULSE 72; RESP 16; TEMP 98
== END 2023-01-30 19:09 | disposition home or self-care (01) ==
LOC: EC 16:58
DX: M79.641 Pain in right hand (principal); J44.9 Chronic obstructive pulmonary disease, unspecified; E11.9 Type 2 diabetes mellitus without complications; K21.9 Gastro-esophageal reflux disease without esophagitis; I10 Essential (primary) hypertension; F41.9 Anxiety disorder, unspecified; F31.9 Bipolar disorder, unspecified; F17.200 Nicotine dependence, unspecified, uncomplicated; Z79.82 Long term (current) use of aspirin; Z79.51 Long term (current) use of inhaled steroids; Z79.899 Other long term (current) drug therapy; Z79.4 Long term (current) use of insulin; Z79.84 Long term (current) use of oral hypoglycemic drugs; Z88.6 Allergy status to analgesic agent; Z88.8 Allergy status to other drugs, medicaments and biological substances; W22.8XXA Striking against or struck by other objects, initial encounter
CPT/HCPCS: 99282; 99283

== ENCOUNTER 2023-02-07 01:57 | Inpatient (IN) | payer OTHER ==
[2023-02-07 02:14] LABS: Glucose,Whole Blood 77 mg/dL (70-110)
[2023-02-07] MEDS ORDERED: ALTEPLASE IV ONE (02:15)
[2023-02-07] MEDS ORDERED: ALTEPLASE BOLUS FOR STROKE 8 MG in EMPTY SYRINGE 1 SYR IV ONE (02:15)
[2023-02-07] MEDS ORDERED: ONDANSETRON 4 MG/2 ML VIAL IVP STA (02:24)
[2023-02-07 02:27] LABS: Basophils # (A) 0.1 k/uL (0-0.2); Basophils % (A) 1 %; Eosinophils # (A) 0.6 k/uL (0-0.7); Eosinophils % (A) 6 %; HCT 47.5 % (39.0-53.0); HGB 16.6 gm/dL (13.0-17.5); Lymphocytes % (A) 20 %; MCH 30.9 pg (25.0-35.0); MCHC 34.9 g/dL (31.0-37.0); MCV 88.7 fL (80.0-100.0); Mean Platelet Volume 7.3; Monocytes # (A) 0.6 k/uL (0-1.0); Monocytes % (A) 6 %; Neutrophils # (A) 6.3 k/uL (1.3-7.7); Neutrophils % (A) 65 %; Platelet Count 204 k/uL (150-450); RBC 5.36 m/uL (4.30-5.90); RDW 13.4 % (11.5-15.5); WBC 9.7 k/uL (3.8-10.6)
[2023-02-07] MEDS ORDERED: SODIUM CHLORIDE 0.9% 1,000 ML IV ONE (02:29)
[2023-02-07] MEDS ORDERED: MORPHINE SULFATE 2 MG/ML SYRINGE IVP STA (02:30)
--- NOTE | 2023-02-07 02:38 | ED ---
General Adult HPI - General Chief complaint: Neuro Symptoms/Deficit Stated complaint: POSSIBLE STROKE Time Seen by Provider: 02/07/23 02:01 Source: patient, family, RN notes reviewed, old records reviewed Mode of arrival: wheelchair Limitations: no limitations - History of Present Illness Initial comments: 42-year-old male who woke at approximately 0130 with slurred speech, left-sided weakness. Patient had gone to bed at approximately 10:30 without any complaints. When he woke he was unable to lift his left leg or left arm. He had a left-sided facial droop and had slurred speech. He reports a very mild headache. No central chest pain. Patient denies current anticoagulation. He denies recent trauma. He denies history of previous stroke. - Related Data Home Medications Medication Instructions Recorded Confirmed Haloperidol Decanoate [Haldol D] 150 mg IM Q21D 07/31/14 02/07/23 Aspirin [Adult Low Dose Aspirin EC] 81 mg PO DAILY 12/07/19 02/07/23 Brivaracetam [Briviact] 50 mg PO BID 12/07/19 02/07/23 Levothyroxine Sodium [Synthroid] 50 mcg PO DAILY 12/07/19 02/07/23 Sertraline [Zoloft] 100 mg PO DAILY 12/07/19 02/07/23 lamoTRIgine [LaMICtal] 200 mg PO BID 12/07/19 02/07/23 lisinopriL 20 mg PO HS 12/07/19 02/07/23 metFORMIN HCL [Glucophage] 1,000 mg PO BID 12/07/19 02/07/23 Albuterol Sulfate [Albuterol 1 puff PO RT-Q4H PRN 02/07/23 02/07/23 Sulfate Hfa] Atorvastatin [Lipitor] 40 mg PO HS 02/07/23 02/07/23 Docusate Sodium [Dok] 100 mg PO DAILY PRN 02/07/23 02/07/23 Famotidine [Pepcid] 40 mg PO BID 02/07/23 02/07/23 Fenofibrate [Lofibra] 160 mg PO DAILY 02/07/23 02/07/23 Ferrous Sulfate [Feosol] 325 mg PO DAILY 02/07/23 02/07/23 Fluticasone Propionate [Flovent 2 puff INHALATION RT-BID 02/07/23 02/07/23 Hfa 220 mcg] Gabapentin [Neurontin] 400 mg PO BID 02/07/23 02/07/23 Glimepiride [Amaryl] 2 mg PO DAILY 02/07/23 02/07/23 Insulin NPH Hum/Reg Insulin Hm 18 unit SQ W/SUPPER 02/07/23 02/07/23 [humuLIN 70/30 Kwikpen] Insulin NPH Hum/Reg Insulin Hm 33 unit SQ W/BRKFST 02/07/23 02/07/23 [humuLIN 70/30 Kwikpen] Loperamide [Imodium] 4 mg PO BID PRN 02/07/23 02/07/23 OXcarbazepine [Trileptal] 150 mg PO BID 02/07/23 02/07/23 Pantoprazole Sodium [Protonix] 40 mg PO DAILY 02/07/23 02/07/23 Propranolol [Inderal] 10 mg PO BID 02/07/23 02/07/23 Tamsulosin HCl [Flomax] 0.4 mg PO HS 02/07/23 02/07/23 lamoTRIgine [LaMICtal] 75 mg PO BID 02/07/23 02/07/23 rOPINIRole HCL [Requip] 0.25 mg PO TID 02/07/23 02/07/23 sitaGLIPtin [Januvia] 100 mg PO DAILY 02/07/23 02/07/23 tiZANidine [Zanaflex] 2 mg PO TID PRN 02/07/23 02/07/23 tiZANidine [Zanaflex] 4 mg PO TID PRN 02/07/23 02/07/23 traZODone HCL 150 mg PO HS 02/07/23 02/07/23 Allergies Allergy/AdvReac Type Severity Reaction Status Date / Time codeine Allergy Rash/Hives Verified 02/07/23 07:38 hydrocodone Allergy Unknown Verified 02/07/23 07:38 ketorolac [From Toradol] Allergy Abdominal Verified 02/07/23 07:38 Pain mirtazapine [From Remeron] Allergy Abdominal Verified 02/07/23 07:38 Pain pioglitazone [From Actos] Allergy Abdominal Verified 02/07/23 07:38 Pain Review of Systems ROS Statement: Those systems with pertinent positive or pertinent negative responses have been documented in the HPI. ROS Other: All systems not noted in ROS Statement are negative. Past Medical History Past Medical History: Asthma, Chest Pain / Angina, COPD, Diabetes Mellitus, GERD/Reflux, Hyperlipidemia, Hypertension, Liver Disease, Seizure Disorder, Skin Disorder Additional Past Medical History / Comment(s): grand mal seizures-"last seizure yrs ago", coughing from cigarettes, hemorrhoid, constipation/diarrhea, hx fatty liver, psoriasis, eczema, back pain History of Any Multi-Drug Resistant Organisms: MRSA Date of last positivie culture/infection: 2019 MDRO Source:: foot Past Surgical History: Hernia Repair, Orthopedic Surgery, Tonsillectomy Additional Past Surgical History / Comment(s): 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, [facility] surgery, sternum partially removed Past Anesthesia/Blood Transfusion Reactions: No Reported Reaction Past Psychological History: Anxiety, Bipolar, Depression, Panic Disorder, Schizophrenia Smoking Status: Current every day smoker, Light tobacco smoker Past Alcohol Use History: Rare Past Drug Use History: None Reported - Past Family History Sister(s) Family Medical History: Cancer Mother Family Medical History: Cancer Father Family Medical History: Cancer General Exam Limitations: no limitations General appearance: alert, in no apparent distress Head exam: Present: atraumatic, normocephalic Eye exam: Present: normal appearance, PERRL ENT exam: Present: normal exam Neck exam: Present: normal inspection. Absent: tenderness, meningismus Respiratory exam: Present: normal lung sounds bilaterally. Absent: respiratory distress, wheezes Cardiovascular Exam: Present: regular rate, normal rhythm GI/Abdominal exam: Present: soft. Absent: distended, tenderness, guarding, rebound Extremities exam: Present: normal inspection, normal capillary refill Neurological exam: Present: alert, oriented X3, motor sensory deficit (Left- sided facial droop, left arm drift, left leg drift, associated limb ataxia, and dysarthria. NIH of 10) Psychiatric exam: Present: normal affect, normal mood Skin exam: Present: warm, dry Course Vital Signs 02/07/23 02/07/23 02/07/23 01:59 02:10 02:22 Temperature 98.2 F Pulse Rate 90 90 80 Pulse Rate [ Personal Lines Account Manager ] Respiratory 20 18 Rate Blood Pressure 147/92 143/105 165/88 Blood Pressure [Right Arm] O2 Sat by Pulse 96 97 Oximetry 02/07/23 02/07/23 02/07/23 02:37 02:52 03:07 Temperature Pulse Rate 76 80 75 Pulse Rate [ Personal Lines Account Manager ] Respiratory 18 18 18 Rate Blood Pressure 149/96 141/98 144/104 Blood Pressure [Right Arm] O2 Sat by Pulse 97 97 97 Oximetry 02/07/23 02/07/23 02/07/23 03:22 03:30 03:40 Temperature 98.2 F Pulse Rate 80 Pulse Rate [ 73 Personal Lines Account Manager ] Respiratory 18 17 Rate Blood Pressure 143/97 134/103 Blood Pressure 161/92 [Right Arm] O2 Sat by Pulse 95 94 L Oximetry - Reevaluation(s) Reevaluation #1: 02/07/2307 Code alteplase activated Reevaluation #2: 02/07/23 02:25 Case discussed with stroke interventionalist, Dr. Dailey, patient is possible TPA candidate CT images currently being reviewed Reevaluation #3: 02/07/23 02:30 [address] myself and Dr. Dailey reviewed CT without contrast and do not see intracranial hemorrhage. Advised to give TPA. Patient is alert and oriented and is able to give consent to TPA Medical Decision Making - Medical Decision Making Was pt. sent in by a medical professional or institution (, PA, SKIP LOCATOR, urgent care, hospital, or [facility]...) When possible be specific @ -[No] Did you speak to anyone other than the patient for history (EMS, parent, family, police, friend...)? What history was obtained from this source @ -[No] Did you review nursing and triage notes (agree or disagree)? Why? @ -[I reviewed and agree with nursing and triage notes] Were old charts reviewed (outside hosp., previous admission, EMS record, old EKG, old radiological studies, urgent care reports/EKG's, [facility] records)? Report findings @ -[No old charts were reviewed] Differential Diagnosis (chest pain, altered mental status, abdominal pain women, abdominal pain men, vaginal bleeding, weakness, fever, dyspnea, syncope, headache, dizziness, GI bleed, back pain, seizure, CVA, palpatations, mental health, musculoskeletal)? @ Differential CVA Ischemic stroke, hemorrhagic stroke, brain tumor, atypical migraine, Wernicke's encephalopathy, seizure, multiple sclerosis, meningitis, encephalitis, hypoglycemia, Guillain-Holly, electrolytes disturbance, myasthenia gravis.... This is not meant to be an all-inclusive list EKG interpreted by me (3pts min.). @ EKG: Sinus rhythm rate of 79, OH interval 132, QRS duration 82, QTC 43, no ST segment elevation. X-rays interpreted by me (1pt min.). @Negative for acute cardiopulmonary findings CT interpreted by me (1pt min.). @ -CT without contrast reviewed by myself, negative for intracranial hemorrhage U/S interpreted by me (1pt. min.). @ -[None done] What testing was considered but not performed or refused? (CT, X-rays, U/S, labs)? Why? @ -[None] What meds were considered but not given or refused? Why? @ -[None] Did you discuss the management of the patient with other professionals (mary ellen monreal i.e. , PA, SKIP LOCATOR, lab, RT, psych nurse, perinatal social worker, auto accessories installer, teacher, founder and chief executive officer, nurse case manager)? Give summary @ -Dr. Dailey, Dr. Velazquez, Dr. Nye Neuro, Dr. Nye ICU Was smoking cessation discussed for >3mins.? @ -[No] Was critical care preformed (if so, how long)? @ -Yes, 35 minutes Were there social determinants of health that impacted care today? How? (Homelessness, low income, unemployed, alcoholism, drug addiction, transportation, low edu. Level, literacy, decrease access to med. care, fci, rehab)? @ -[No] Was there de-escalation of care discussed even if they declined (Discuss DNR or withdrawal of care, Hospice)? DNR status @ -[No] What co-morbidities impacted this encounter? (DM, HTN, Smoking, COPD, CAD, Cancer, CVA, ARF, Chemo, Hep., AIDS, mental health diagnosis, sleep apnea, morbid obesity)? @ -Seizure disorder, hyperlipidemia, hypertension Was patient admitted / discharged? Hospital course, mention meds given and route, prescriptions, significant lab abnormalities, going to OR and other pertinent info. @42-year-old male presenting with acute onset left-sided paralysis and dysarthria. Patient initial NIH of 10, stroke is suspected. Patient taken immediately to CT which was negative for intracranial hemorrhage. The patient was a candidate for TPA and TPA was a white goods appliance tech to the emergency department after discussion with the neurologist on-call for intervention. Patient had normal CBC, normal CMP, normal coags. He will be admitted to the ICU for further stroke management. Case discussed with the admitting physician and the american sign language teacher as well as a neurologist Undiagnosed new problem with uncertain prognosis? @ -[No] Drug Therapy requiring intensive monitoring for toxicity (Heparin, Nitro, Insulin, Cardizem)? @ -[No] Were any procedures done? @ -[No] Diagnosis/symptom? @ -CVA Acute, or Chronic, or Acute on Chronic? @ -Acute Uncomplicated (without systemic symptoms) or Complicated (systemic symptoms)? @Complicated Side effects of treatment? @ -[No] Exacerbation, Progression, or Severe Exacerbation? @ -[No] Poses a threat to life or bodily function? How? (Chest pain, [place], [place], pneumonia, PE, COPD, DKA, ARF, appy, cholecystitis, CVA, Diverticulitis, Homicidal, Suicidal, threat to staff... and all critical care pts) @ -Yes, CVA - Lab Data Result diagrams: 02/07/23 02:17 02/07/23 02:17 Lab Results 02/07/23 02/07/23 02/07/23 Range/Units 02:13 02:17 02:17 WBC 9.7 (3.8-10.6) k/uL RBC 5.36 (4.30-5.90) m/uL Hgb 16.6 (13.0-17.5) gm/dL Hct 47.5 (39.0-53.0) % MCV 88.7 (80.0-100.0) fL MCH 30.9 (25.0-35.0) pg MCHC 34.9 (31.0-37.0) g/dL RDW 13.4 (11.5-15.5) % Plt Count 204 (150-450) k/uL MPV 7.3 Neutrophils % 65 % Lymphocytes % 20 % Monocytes % 6 % Eosinophils % 6 % Basophils % 1 % Neutrophils # 6.3 (1.3-7.7) k/uL Lymphocytes # 2.0 (1.0-4.8) k/uL Monocytes # 0.6 (0-1.0) k/uL Eosinophils # 0.6 (0-0.7) k/uL Basophils # 0.1 (0-0.2) k/uL PT 10.0 (9.0-12.0) sec INR 0.9 (<1.2) APTT 25.4 (22.0-30.0) sec Sodium (137-145) mmol/L Potassium (3.5-5.1) mmol/L Chloride (98-107) mmol/L Carbon Dioxide (22-30) mmol/L Anion Gap mmol/L BUN (9-20) mg/dL Creatinine (0.66-1.25) mg/dL Est GFR (CKD-EPI)AfAm (>60 ml/min/1.73 sqM) Est GFR (CKD-EPI)NonAf (>60 ml/min/1.73 sqM) Glucose (74-99) mg/dL POC Glucose (mg/dL) 77 (70-110) mg/dL POC Glu [place] Paralegal ID Marifer Cline Calcium (8.4-10.2) mg/dL Total Bilirubin (0.2-1.3) mg/dL AST (17-59) U/L ALT (4-49) U/L Alkaline Phosphatase (38-126) U/L Creatine Kinase (55-170) U/L Troponin I (0.000-0.034) ng/mL Total Protein (6.3-8.2) g/dL Albumin (3.5-5.0) g/dL 02/07/23 02/07/23 Range/Units 02:17 02:17 WBC (3.8-10.6) k/uL RBC (4.30-5.90) m/uL Hgb (13.0-17.5) gm/dL Hct (39.0-53.0) % MCV (80.0-100.0) fL MCH (25.0-35.0) pg MCHC (31.0-37.0) g/dL RDW (11.5-15.5) % Plt Count (150-450) k/uL MPV Neutrophils % % Lymphocytes % % Monocytes % % Eosinophils % % Basophils % % Neutrophils # (1.3-7.7) k/uL Lymphocytes # (1.0-4.8) k/uL Monocytes # (0-1.0) k/uL Eosinophils # (0-0.7) k/uL Basophils # (0-0.2) k/uL PT (9.0-12.0) sec INR (<1.2) APTT (22.0-30.0) sec Sodium 145 (137-145) mmol/L Potassium 3.9 (3.5-5.1) mmol/L Chloride 104 (98-107) mmol/L Carbon Dioxide 29 (22-30) mmol/L Anion Gap 12 mmol/L BUN 5 L (9-20) mg/dL Creatinine 0.94 (0.66-1.25) mg/dL Est GFR (CKD-EPI)AfAm >90 (>60 ml/min/1.73 sqM) Est GFR (CKD-EPI)NonAf >90 (>60 ml/min/1.73 sqM) Glucose 77 (74-99) mg/dL POC Glucose (mg/dL) (70-110) mg/dL POC Glu [place] [employer] ID Calcium 9.7 (8.4-10.2) mg/dL Total Bilirubin 0.4 (0.2-1.3) mg/dL AST 34 (17-59) U/L ALT 31 (4-49) U/L Alkaline Phosphatase 77 (38-126) U/L Creatine Kinase 96 (55-170) U/L Troponin I <0.012 (0.000-0.034) ng/mL Total Protein 7.8 (6.3-8.2) g/dL Albumin 4.6 (3.5-5.0) g/dL Critical Care Time Critical Care Time: Yes Total Critical Care Time: 35 Disposition Clinical Impression: Cerebrovascular accident (CVA), Received intravenous tissue plasminogen activator (tPA) in emergency department Disposition: ADMITTED IP TO THIS HOSP Condition: Serious Is patient prescribed a controlled substance at d/c from ED?: No Time of Disposition: 03:17
--- NOTE | 2023-02-07 02:39 | CT ---
EXAM: CT Head Without Intravenous Contrast CLINICAL HISTORY: ITS.REASON CT Reason: Neuro deficit, acute, stroke suspected TECHNIQUE: Axial computed tomography images of the head/brain without intravenous contrast. CTDI is 40.15 mGy and DLP is 1791.4 mGy-cm. This CT exam was performed using one or more of the following dose reduction techniques: automated exposure control, adjustment of the mA and/or kV according to patient size, and/or use of iterative reconstruction technique. COMPARISON: No relevant prior studies available. FINDINGS: Brain: Unremarkable. No hemorrhage. No significant white matter disease. No edema. There is a moderate sized left choroidal fissure cyst. Ventricles: Unremarkable. No ventriculomegaly. Bones/joints: Unremarkable. No acute fracture. Soft tissues: Findings concerning for thyroid ophthalmopathy, which can be seen in the setting of Graves' disease. Sinuses: Unremarkable as visualized. No acute sinusitis. Mastoid air cells: Unremarkable as visualized. No mastoid effusion. IMPRESSION: No evidence of acute intracranial pathology.
[2023-02-07 02:45] LABS: INR 0.9 (<1.2); Partial Thromboplastin Time 25.4 sec (22.0-30.0)
--- NOTE | 2023-02-07 02:46 | CT ---
EXAM: CT Angiography Head With Intravenous Contrast CLINICAL HISTORY: ITS.REASON CT Reason: Neuro deficit, acute, stroke suspected TECHNIQUE: Axial computed tomographic angiography images of the head with intravenous contrast. CTDI is 20 mGy and DLP is 1791.4 mGy-cm. This CT exam was performed using one or more of the following dose reduction techniques: automated exposure control, adjustment of the mA and/or kV according to patient size, and/or use of iterative reconstruction technique. MIP reconstructed images were created and reviewed. COMPARISON: No relevant prior studies available. FINDINGS: Right internal carotid artery: No acute findings. Intracranial segment is patent with no significant stenosis. No aneurysm. Right anterior cerebral artery: Unremarkable. No occlusion or significant stenosis. No aneurysm. Right middle cerebral artery: Unremarkable. No occlusion or significant stenosis. No aneurysm. Right posterior cerebral artery: Unremarkable. No occlusion or significant stenosis. No aneurysm. Right vertebral artery: Unremarkable as visualized. Left internal carotid artery: No acute findings. Intracranial segment is patent with no significant stenosis. No aneurysm. Left anterior cerebral artery: Unremarkable. No occlusion or significant stenosis. No aneurysm. Left middle cerebral artery: Unremarkable. No occlusion or significant stenosis. No aneurysm. Left posterior cerebral artery: Unremarkable. No occlusion or significant stenosis. No aneurysm. Left vertebral artery: Unremarkable as visualized. Basilar artery: Unremarkable. No occlusion or significant stenosis. No aneurysm. IMPRESSION: Negative CT angiogram of the head. EXAM: CT Angiography Neck With Intravenous Contrast CLINICAL HISTORY: ITS.REASON CT Reason: Neuro deficit, acute, stroke suspected TECHNIQUE: Routine carotid CT angiography protocol was performed with intravenous contrast. NASCET criteria using the distal ICAs for comparison were used for evaluation of stenoses. CTDI is 20.15 mGy and DLP is 1791.4 mGy-cm. This CT exam was performed using one or more of the following dose reduction techniques: automated exposure control, adjustment of the mA and/or kV according to patient size, and/or use of iterative reconstruction technique. MIP reconstructed images were created and reviewed. COMPARISON: None. FINDINGS: VASCULATURE: Right common carotid artery: Unremarkable. No occlusion or significant stenosis. No dissection. Right internal carotid artery: Unremarkable. Extracranial segment is patent with no occlusion or significant stenosis. No dissection. Right external carotid artery: Unremarkable. No occlusion. Right vertebral artery: Unremarkable. No occlusion or significant stenosis. No dissection. Left common carotid artery: Unremarkable. No occlusion or significant stenosis. No dissection. Left internal carotid artery: Unremarkable. Extracranial segment is patent with no occlusion or significant stenosis. No dissection. Left external carotid artery: Unremarkable. No occlusion. Left vertebral artery: Unremarkable. No occlusion or significant stenosis. No dissection. NECK: Bones/joints: Moderate to advanced disc degeneration at C5-6 and C6-7. Remote anterior chest wall thoracotomy with resection of the sternum and subsequent focal expansion of the lungs. Soft tissues: Prominent cervical lymph nodes. Prominent mediastinal and hilar lymph nodes. Lung apices: Findings are several bronchitis, which may be of infectious or inflammatory etiologies with pneumonitis in the left upper lobe. CAROTID STENOSIS REFERENCE USING NASCET CRITERIA: % ICA stenosis = (1 - narrowest ICA diameter/diameter of distal cervical ICA) x 100. Mild - <50% stenosis. Moderate - 50-69% stenosis. Severe - 70-94% stenosis. Near occlusion - 95-99% stenosis. Occluded - 100% stenosis. IMPRESSION: Negative CTA neck.
[2023-02-07 02:47] LABS: ALT 31 U/L (4-49); AST 34 U/L (17-59); African American GFR (CKD) >90 (>60 ml/min/1.73 sqM); Albumin 4.6 g/dL (3.5-5.0); Alkaline Phosphatase 77 U/L (38-126); Anion Gap 12 mmol/L; Blood Urea Nitrogen 5 mg/dL (9-20); Calcium 9.7 mg/dL (8.4-10.2); Carbon Dioxide 29 mmol/L (22-30); Chloride 104 mmol/L (98-107); Creatine Kinase 96 U/L (55-170); Glucose 77 mg/dL (74-99); Non-African American GFR(CKD) >90 (>60 ml/min/1.73 sqM); Potassium 3.9 mmol/L (3.5-5.1); Sodium 145 mmol/L (137-145); Total Bilirubin 0.4 mg/dL (0.2-1.3); Total Protein 7.8 g/dL (6.3-8.2)
[2023-02-07] MEDS ORDERED: SODIUM CHLORIDE 0.9% 50 ML MINI-BAG IV ONE ×2 (03:13→04:12)
[2023-02-07] MEDS ORDERED: HYDROmorphone 0.5 MG/0.5 ML SYRINGE IVP STA (03:17)
[2023-02-07] MEDS: SODIUM CHLORIDE 0.9% 1,000 ML IV SCH ×2 (03:17→14:51)
[2023-02-07 03:51] LABS: Glucose,Whole Blood 68 mg/dL (70-110)
--- NOTE | 2023-02-07 05:06 | P.HPIM ---
History of Present Illness H&P Date: 02/07/23 The patient is a 42-year-old male with a PMH of type II DM, hypertension, hyperlipidemia, COPD, hypothyroidism who presented to the emergency room with complaints of facial droop, slurred speech and left-sided weakness. The patient states that he went to sleep around 10:30 PM and woke up at 1:30 AM with the above symptoms. He also reported having a mild headache with nausea. Code [facility] place was activated in the emergency room and the patient received TPA. He was seen shortly after in the medical ICU. He reported that his symptoms are gradually improving, in particular his speech which had normalized. His left upper and lower extremities are also slightly improved in strength. He denied any prior history of such symptoms. He denied experiencing fever, chills, chest pain, shortness of breath. In the emergency room, CT angiogram head and neck was unremarkable. CT brain wa s unremarkable. EKG revealed sinus rhythm at [address]/T-wave changes noted as reviewed by me. Laboratory evaluation was remarkable for glucose of 68. ED documentation reviewed and case discussed with ED provider. Review of systems: Pertinent positives and negatives as discussed in HPI, a complete review of systems was performed and all other systems are negative. Physical examination: Vital signs reviewed General: non toxic, no distress, appears at stated age, normal weight Derm: no unusual rashes/lesions, warm Head: atraumatic, normocephalic, symmetric Eyes: EOMI, no lid lag, anicteric sclera, pupils equal round reactive to light ENT: Nose and ears atraumatic Neck: No cervical lymphadenopathy, trachea midline, supple Mouth: no lip lesion, mucus membranes moist Cardiovascular: S1S2 reg, no murmur, positive dorsalis pedis pulse bilateral, no edema Lungs: CTA bilateral, no rhonchi, no rales, no accessory muscle use Abdominal: soft, nontender to palpation, no guarding Ext: muscle strength 3 out of 5 of left upper and lower extremities proximally and distally, left-sided facial droop noted, strength 5 out of 5 right sided upper and lower extremities, no gross muscle atrophy, no contractures, Neuro: CN II-XI grossly intact with the exception of left-sided facial droop, no dysarthria noted Psych: Alert, oriented, appropriate affect Assessment: Acute CVA status post TPA Chronic conditions: Type II DM, hypertension, hyperlipidemia, COPD, hypothyroidism Imaging: CT angiogram head and neck was unremarkable. CT brain was unremarkable. EKG revealed sinus rhythm at [address]/T-wave changes noted as reviewed by me. Data Review: Laboratory evaluation was remarkable for glucose of 68. Plan: Neurology and mentally impaired teacher were consulted Post-TPA CT brain ordered PT consult HEMODIALYSIS PATIENT CARE SPECIALIST consult ordered Obtain echocardiogram Insulin sliding scale with blood glucose monitoring DVT prophylaxis: Heparin subq The patient is admitted with an anticipated greater than 2 midnight stay for evaluation of CVA CODE STATUS: Full Code Discussed with: Patient Anticipated discharge place: Home Past Medical History Past Medical History: Asthma, Chest Pain / Angina, COPD, Diabetes Mellitus, GERD/Reflux, Hyperlipidemia, Hypertension, Liver Disease, Seizure Disorder, Skin Disorder Additional Past Medical History / Comment(s): grand mal seizures-"last seizure yrs ago", coughing from cigarettes, hemorrhoid, constipation/diarrhea, hx fatty liver, psoriasis, eczema, back pain History of Any Multi-Drug Resistant Organisms: MRSA Date of last positivie culture/infection: 2019 MDRO Source:: foot Past Surgical History: Hernia Repair, Orthopedic Surgery, Tonsillectomy Additional Past Surgical History / Comment(s): 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, [facility] foot surgery, sternum partially removed Past Anesthesia/Blood Transfusion Reactions: No Reported Reaction Past Psychological History: Anxiety, Bipolar, Depression, Panic Disorder, Schizophrenia Additional Psychological History / Comment(s): manic depression, paranoia Smoking Status: Current every day smoker, Light tobacco smoker Past Alcohol Use History: Rare Additional Past Alcohol Use History / Comment(s): smoking 1/2 PPD, started smoking age 13 Past Drug Use History: None Reported Additional Drug Use History / Comment(s): CBD oil - Past Family History Sister(s) Family Medical History: Cancer Mother Family Medical History: Cancer Father Family Medical History: Cancer Medications and Allergies Home Medications Medication Instructions Recorded Confirmed Type Haloperidol Decanoate [Haldol D] 200 mg IM QMONTH 07/31/14 10/09/22 History [place]-3 Fatty Acids/Fish Oil [Fish 1 cap PO TID 06/20/15 10/09/22 History Oil 1,000 mg Softgel] Omeprazole [PriLOSEC] 20 mg PO QAM 04/01/16 10/09/22 History Aspirin [Adult Low Dose Aspirin EC] 81 mg PO DAILY 12/07/19 10/09/22 History Brivaracetam [Briviact] 50 mg PO BID 12/07/19 10/09/22 History Budesonide [Pulmicort Flexhaler] 1 puff INHALATION BID 12/07/19 10/09/22 History Fenofibrate Nanocrystallized 145 mg PO DAILY 12/07/19 10/09/22 History [Fenofibrate] Fluocinonide 0.05% [Lidex 0.05% 15 applic TOPICAL DIRECTED PRN 12/07/19 10/09/22 History cream] Gabapentin [Neurontin] 600 mg PO 1400,2200 12/07/19 10/09/22 History Hydrocortisone Cream 1 applic TOPICAL DIRECTED PRN 12/07/19 10/09/22 History [Hydrocortisone 2.5% Cream] Ibuprofen [Motrin] 600 mg PO BID PRN 12/07/19 10/09/22 History Insulin NPH Hum/Reg Insulin Hm 10 unit SQ HS 12/07/19 10/09/22 History [NovoLIN 70-30 100 UNIT/ML VIAL] Insulin NPH Hum/Reg Insulin Hm 28 unit SQ QAM 12/07/19 10/09/22 History [NovoLIN 70-30 100 UNIT/ML VIAL] Levothyroxine Sodium [Synthroid] 50 mcg PO QAM 12/07/19 10/09/22 History Loratadine [Claritin] 10 mg PO DAILY 12/07/19 10/09/22 History Magnesium Oxide 400 mg PO DAILY 12/07/19 10/09/22 History Montelukast [Singulair] 10 mg PO HS 12/07/19 10/09/22 History Sertraline [Zoloft] 200 mg PO QAM 12/07/19 10/09/22 History Topiramate [Topamax] 75 mg PO BID 12/07/19 10/09/22 History busPIRone HCL 15 mg PO BID 12/07/19 10/09/22 History hydrOXYzine pamoate [Vistaril] 50 mg PO Q4HR PRN 12/07/19 10/09/22 History lamoTRIgine [LaMICtal] 275 mg PO BID 12/07/19 10/09/22 History lisinopriL 20 mg PO HS 12/07/19 10/09/22 History metFORMIN HCL [Glucophage] 1,000 mg PO BID 12/07/19 10/09/22 History traZODone HCL [Desyrel] 100 mg PO HS 12/07/19 10/09/22 History Cannabidiol (Cbd) [Epidiolex] 0 mg PO DAILY PRN 08/04/20 10/09/22 History Nystatin 100,000 Unit/gm Powd 1 applic TOPICAL BID #60 gm 01/23/22 10/09/22 Rx [Mycostatin Powder] Allergies Allergy/AdvReac Type Severity Reaction Status Date / Time codeine Allergy Rash/Hives Verified 02/07/23 03:17 hydrocodone Allergy Unknown Verified 02/07/23 03:36 ketorolac [From Toradol] Allergy Abdominal Verified 01/30/23 17:47 Pain mirtazapine [From Remeron] Allergy Abdominal Verified 01/30/23 17:47 Pain pioglitazone [From Actos] Allergy Abdominal Verified 01/30/23 17:47 Pain Physical Exam Vitals: Vital Signs Temp Pulse Pulse Resp BP BP Pulse Ox 02/07/23 05:00 18 147/99 91 L 02/07/23 04:30 77 20 161/92 93 L 02/07/23 04:00 98.2 F 77 19 141/88 96 02/07/23 03:40 98.2 F 73 17 161/92 94 L 02/07/23 03:30 134/103 02/07/23 03:22 80 18 143/97 95 02/07/23 03:07 75 18 144/104 97 02/07/23 02:52 80 18 141/98 97 02/07/23 02:37 76 18 149/96 97 02/07/23 02:22 80 18 165/88 97 02/07/23 02:10 90 143/105 02/07/23 01:59 98.2 F 90 20 147/92 96 Intake and Output 02/06/23 02/06/23 02/07/23 14:59 22:59 06:59 Intake Total 1200 Output Total 0 Balance 1200 Intake: IV 1200 Sodium Chloride 0.9% 1, 200 000 ml @ 100 mls/hr IV . Q10H [facility] Rx#:[id number] Sodium Chloride 0.9% 1, 1000 000 ml @ 999 mls/hr IV . Q1H1M ONE Rx#:[id number] Output: Urine 0 Other: # Voids 0 Weight 83.915 kg Results CBC & Chem 7: 02/07/23 02:17 02/07/23 02:17 Labs: Abnormal Lab Results - Last 24 Hours (Table) 02/07/23 02/07/23 Range/Units 02:17 03:49 BUN 5 L (9-20) mg/dL POC Glucose (mg/dL) 68 L (70-110) mg/dL Thrombosis Risk Factor Assmnt - Choose All That Apply Any of the Below Risk Factors Present?: Yes Each Factor Represents 1 point: Abnormal pulmonary function (COPD), Age 41-60 years, Obesity (BMI >25) Other Risk Factors: No Other congenital or acquired thrombophilia - If yes, enter type in comment: Yes Each Risk Factor Represents 5 Points: Stroke (< 1 month) Thrombosis Risk Factor Assessment Total Risk Factor Score: 8 Thrombosis Risk Factor Assessment Level: High Risk
--- NOTE | 2023-02-07 05:16 | XR ---
EXAMINATION TYPE: XR chest 2V DATE OF EXAM: 02/07/2023 COMPARISON: NONE HISTORY: CVA. Weakness. Altered mental status. TECHNIQUE: Frontal and lateral views of the chest are obtained. FINDINGS: There is no focal air space opacity, pleural effusion, or pneumothorax seen. The cardiac silhouette size is within normal limits. The osseous structures are intact. Overlying EKG leads are present. IMPRESSION: No acute cardiopulmonary process.
[2023-02-07] MEDS: MORPHINE SULFATE 4 MG/ML SYRINGE IVP PRN ×5 (06:13→23:22)
[2023-02-07 07:05] LABS: Glucose,Whole Blood 82 mg/dL (70-110)
[2023-02-07] MEDS: INSULIN ASPART (NovoLOG) 100 UNIT/ML VIAL SQ SCH ×4 (07:06→19:26)
[2023-02-07] MEDS ORDERED: HEPARIN SODIUM,PORCINE/PF 5,000 UNIT/0.5 ML SYRINGE SQ SCH (08:00)
--- NOTE | 2023-02-07 11:07 | P.CNPUL ---
History of Present Illness Consult date: 02/07/23 Requesting physician: Oc Velazquez Reason for consult: other Chief complaint: Left-sided CVA. History of present illness: Pulmonary consult dated 02/07/2023. This is a 42-year-old male, with multiple medical problems including chronic tobacco use, COPD, hypertension, hyperlipidemia, seizure disorder, diabetes, and bipolar disorder. The patient was seen in the emergency department, at sometime after 1:00, closer to 2 AM, with complaints of slurred speech, left-sided weakness, and left facial droop. He apparently went to bed at 10:30, without any complaints. He apparently woke up at about 1:00 in the morning, and did not have the ability to move his left side. Patient was evaluated for CVA, and I did speak to the ER physician last night. The patient did receive TPA, about 1- 1/2 hours after symptoms began. His initial NIH score was 10. Computed tomography scan of the brain was negative. Currently he is on room air. Is getting saline at 100 mL an hour. White count 9.7, hemoglobin 16.6, hematocrit 47.5, with a normal platelet count. Coagulation studies are normal. Sodium 1 45, potassium 3.9, chlorides 104, CO2 29, anion gap 12, BUN 5, creatinine 0.94. The rest of the comprehensive metabolic profile is normal. Brain CT showed nothing acute. CT angiogram of the neck, was negative. The patient is currently resting comfortably in the intensive care unit, room 266. He still has a left facial droop, and, he does have weakness to the left side of his body, left upper extremity, greater than left lower extremity. Review of Systems REVIEW OF SYSTEMS: CONSTITUTIONAL: [Negative.] NEUROLOGIC: Left facial droop, weakness to his left upper extremity and left lower extremity. HEENT: [ Negative.] CARDIAC: [Negative.] PULMONARY: [Negative.] GI: [Negative.] : [Negative.] RHEUMATOLOGIC: [ Negative.] IMMUNOLOGIC: [ Negative.] ENDOCRINE: [Negative. ] DERMATOLOGIC: [Negative.] Past Medical History Past Medical History: Asthma, Chest Pain / Angina, COPD, Diabetes Mellitus, GERD/Reflux, Hyperlipidemia, Hypertension, Liver Disease, Seizure Disorder, Skin Disorder Additional Past Medical History / Comment(s): grand mal seizures-"last seizure yrs ago", coughing from cigarettes, hemorrhoid, constipation/diarrhea, hx fatty liver, psoriasis, eczema, back pain History of Any Multi-Drug Resistant Organisms: MRSA Date of last positivie culture/infection: 2019 MDRO Source:: foot Past Surgical History: Hernia Repair, Orthopedic Surgery, Tonsillectomy Additional Past Surgical History / Comment(s): 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, [facility] foot surgery, sternum partially removed Past Anesthesia/Blood Transfusion Reactions: No Reported Reaction Past Psychological History: Anxiety, Bipolar, Depression, Panic Disorder, Schizophrenia Additional Psychological History / Comment(s): manic depression, paranoia Smoking Status: Current every day smoker, Light tobacco smoker Past Alcohol Use History: Rare Additional Past Alcohol Use History / Comment(s): smoking 1/2 PPD, started smoking age 13 Past Drug Use History: None Reported Additional Drug Use History / Comment(s): CBD oil - Past Family History Sister(s) Family Medical History: Cancer Mother Family Medical History: Cancer Father Family Medical History: Cancer Medications and Allergies Home Medications Medication Instructions Recorded Confirmed Type Haloperidol Decanoate [Haldol D] 150 mg IM Q21D 07/31/14 02/07/23 History Aspirin [Adult Low Dose Aspirin EC] 81 mg PO DAILY 12/07/19 02/07/23 History Brivaracetam [Briviact] 50 mg PO BID 12/07/19 02/07/23 History Levothyroxine Sodium [Synthroid] 50 mcg PO DAILY 12/07/19 02/07/23 History Sertraline [Zoloft] 100 mg PO DAILY 12/07/19 02/07/23 History lamoTRIgine [LaMICtal] 200 mg PO BID 12/07/19 02/07/23 History lisinopriL 20 mg PO HS 12/07/19 02/07/23 History metFORMIN HCL [Glucophage] 1,000 mg PO BID 12/07/19 02/07/23 History Albuterol Sulfate [Albuterol 1 puff PO RT-Q4H PRN 02/07/23 02/07/23 History Sulfate Hfa] Atorvastatin [Lipitor] 40 mg PO HS 02/07/23 02/07/23 History Docusate Sodium [Dok] 100 mg PO DAILY PRN 02/07/23 02/07/23 History Famotidine [Pepcid] 40 mg PO BID 02/07/23 02/07/23 History Fenofibrate [Lofibra] 160 mg PO DAILY 02/07/23 02/07/23 History Ferrous Sulfate [Feosol] 325 mg PO DAILY 02/07/23 02/07/23 History Fluticasone Propionate [Flovent 2 puff INHALATION RT-BID 02/07/23 02/07/23 History Hfa 220 mcg] Gabapentin [Neurontin] 400 mg PO BID 02/07/23 02/07/23 History Glimepiride [Amaryl] 2 mg PO DAILY 02/07/23 02/07/23 History Insulin NPH Hum/Reg Insulin Hm 18 unit SQ W/SUPPER 02/07/23 02/07/23 History [humuLIN 70/30 Kwikpen] Insulin NPH Hum/Reg Insulin Hm 33 unit SQ W/BRKFST 02/07/23 02/07/23 History [humuLIN 70/30 Kwikpen] Loperamide [Imodium] 4 mg PO BID PRN 02/07/23 02/07/23 History OXcarbazepine [Trileptal] 150 mg PO BID 02/07/23 02/07/23 History Pantoprazole Sodium [Protonix] 40 mg PO DAILY 02/07/23 02/07/23 History Propranolol [Inderal] 10 mg PO BID 02/07/23 02/07/23 History Tamsulosin HCl [Flomax] 0.4 mg PO HS 02/07/23 02/07/23 History lamoTRIgine [LaMICtal] 75 mg PO BID 02/07/23 02/07/23 History rOPINIRole HCL [Requip] 0.25 mg PO TID 02/07/23 02/07/23 History sitaGLIPtin [Januvia] 100 mg PO DAILY 02/07/23 02/07/23 History tiZANidine [Zanaflex] 2 mg PO TID PRN 02/07/23 02/07/23 History tiZANidine [Zanaflex] 4 mg PO TID PRN 02/07/23 02/07/23 History traZODone HCL 150 mg PO HS 02/07/23 02/07/23 History Allergies Allergy/AdvReac Type Severity Reaction Status Date / Time codeine Allergy Rash/Hives Verified 02/07/23 07:38 hydrocodone Allergy Unknown Verified 02/07/23 07:38 ketorolac [From Toradol] Allergy Abdominal Verified 02/07/23 07:38 Pain mirtazapine [From Remeron] Allergy Abdominal Verified 02/07/23 07:38 Pain pioglitazone [From Actos] Allergy Abdominal Verified 02/07/23 07:38 Pain Physical Exam Osteopathic Statement: *. No significant issues noted on an osteopathic structural exam other than those noted in the History and Physical/Consult. Vitals: Vital Signs Temp Pulse Pulse Resp BP BP Pulse Ox 02/07/23 10:00 85 23 124/101 90 L 02/07/23 09:30 92 22 136/94 91 L 02/07/23 09:06 90 L 02/07/23 09:00 81 16 135/79 88 L 02/07/23 08:30 97.7 F 75 14 147/97 90 L 02/07/23 08:00 87 17 139/102 89 L 02/07/23 07:30 80 13 149/100 85 L 02/07/23 07:00 85 15 146/93 88 L 02/07/23 06:30 84 15 147/101 91 L 02/07/23 06:00 82 19 141/79 91 L 02/07/23 05:30 83 18 139/91 91 L 02/07/23 05:00 18 147/99 91 L 02/07/23 04:30 77 20 161/92 93 L 02/07/23 04:00 98.2 F 77 19 141/88 96 02/07/23 03:40 98.2 F 73 17 161/92 94 L 02/07/23 03:30 134/103 02/07/23 03:22 80 18 143/97 95 02/07/23 03:07 75 18 144/104 97 02/07/23 02:52 80 18 141/98 97 02/07/23 02:37 76 18 149/96 97 02/07/23 02:22 80 18 165/88 97 02/07/23 02:10 90 143/105 02/07/23 01:59 98.2 F 90 20 147/92 96 Intake and Output 02/06/23 02/07/23 02/07/23 22:59 06:59 14:59 Intake Total 1300 400 Output Total 0 800 Balance 1300 -400 Intake: IV 1300 400 Sodium Chloride 0.9% 1, 300 400 000 ml @ 100 mls/hr IV . Q10H [facility] Rx#:[id number] Sodium Chloride 0.9% 1, 1000 000 ml @ 999 mls/hr IV . Q1H1M [facility] Rx#:[id number] Output: Urine 0 800 Other: Voiding Method Urinal # Voids 0 0 Weight 83.915 kg No acute distress, oriented 3. Currently on room air. HEENT examination is grossly unremarkable. Left facial droop. Neck supple. Full range of motion. No adenopathy thyromegaly or neck vein distention. Cardiovascular examination reveals regular rhythm rate. S1-S2 normal. No S3 or S4. No discernible murmur noted. Heart rate 85 bpm. Lungs reveal mostly clear breath sounds. Minimal rhonchi. Crackles. Room air saturation is 93%. Abdomen soft bowel sounds are heard. No masses or tenderness. Extremities are intact. No cyanosis clubbing or edema. Skin is without rash or lesion. Neurologic examination reveals a well-developed male, with a left facial droop, and weakness of the left upper extremity greater than the left lower extremity. Results - Laboratory Findings CBC and BMP: 02/07/23 02:17 02/07/23 02:17 PT/INR, D-dimer PT 10.0 sec (9.0-12.0) 02/07/23 02:17 INR 0.9 (<1.2) 02/07/23 02:17 Abnormal lab findings: Abnormal Labs 02/07/23 02/07/23 02:17 03:49 BUN 5 L POC Glucose (mg/dL) 68 L - Diagnostic Findings Chest x-ray: image reviewed Assessment and Plan Assessment: Acute right-sided CVA, with left sided findings, including left facial droop, and left upper extremity weakness greater than left lower extremity weakness. The patient did receive TPA, within 1-1/2 hours of symptoms beginning. History of ongoing tobacco use, with nicotine addiction, and underlying COPD. History of hypertension. History of hyperlipidemia. History of seizure disorder. History of diabetes mellitus. History of bipolar disorder. Vague history of asthma. Plan: Plan dated 02/07/2023. The patient appears be doing better. He still has significant left upper extremity weakness, and a left facial droop. Nonetheless, the patient does feel better. His left lower extremity moves reasonably well. The patient is resting comfortably in the intensive care unit. He is on room air. He's getting saline at 100 mL an hour. He received the TPA within 1-1/2 hours of symptom onset. Labs, x-rays, and medications are reviewed. Prognosis is certainly guarded. The patient is counseled about the importance of never smoking ever again. Time with Patient: Greater than 30
--- NOTE | 2023-02-07 11:21 | P.CNNES ---
History of Present Illness Consult date: 02/04/23 Requesting physician: Reynold Scott Reason for Consult: CVA History of Present Illness: This is a 42-year-old gentleman with history of seizures, diabetes type 2, hypertension, hypothyroidism, significant psych history and tobacco use presented emergency department because of left-sided weakness. The patient pres ents our facility on 02/07/2023 at around 1:57 AM. Patient is accompanied with his mother currently. Patient stated that he took a nap between 10 and 11pm and he woke up around 1a.m. And noticed that he had left-sided weakness. He denies any history of stroke prior to that or TIA. He takes aspirin 81 mg daily. He has history of seizures but has not had seizures for years and follows up with Dr. Grullon. He is on the multiple seizure medication. Mother denies that there is a family history of stroke or any hypercoagulable workup. Patient does not have any history of atrial fibrillation. Some other workup during this hospital visit consisted of: Chemistry panel is unremarkable Stroke code was activated by ED team. Initially in the ED the NIH stroke scale was a 10. CT of the head was negative. I personally reviewed the CT and I agree there is no acute subacute ischemia there is no bleed. CT angiography of the head and neck was also neSole was felt the patient was a TPA candidate since he was within the window. Per the ED team and was given IV TPA bolus of 8 mg and the rest of 1 hour the infusion of 65 mg. He was given a bolus around 2:15 to 16 a.m. Currently the patient feels his left side is doing better. He can do to have some mild left upper extremity weakness. According to the patient nurse patient has inconsistent examination. Review of Systems Review of system: The 12 point system was reviewed and apparent positive and negative per HPI. Past Medical History Past Medical History: Asthma, Chest Pain / Angina, COPD, Diabetes Mellitus, GERD/Reflux, Hyperlipidemia, Hypertension, Liver Disease, Seizure Disorder, Skin Disorder Additional Past Medical History / Comment(s): grand mal seizures-"last seizure yrs ago", coughing from cigarettes, hemorrhoid, constipation/diarrhea, hx fatty liver, psoriasis, eczema, back pain History of Any Multi-Drug Resistant Organisms: MRSA Date of last positivie culture/infection: 2019 MDRO Source:: foot Past Surgical History: Hernia Repair, Orthopedic Surgery, Tonsillectomy Additional Past Surgical History / Comment(s): 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, [facility] foot surgery, sternum partially removed Past Anesthesia/Blood Transfusion Reactions: No Reported Reaction Past Psychological History: Anxiety, Bipolar, Depression, Panic Disorder, Schizophrenia Additional Psychological History / Comment(s): manic depression, paranoia Smoking Status: Current every day smoker, Light tobacco smoker Past Alcohol Use History: Rare Additional Past Alcohol Use History / Comment(s): smoking 1/2 PPD, started smoking age 13 Past Drug Use History: None Reported Additional Drug Use History / Comment(s): CBD oil - Past Family History Sister(s) Family Medical History: Cancer Mother Family Medical History: Cancer Father Family Medical History: Cancer Medications and Allergies Home Medications Medication Instructions Recorded Confirmed Type Haloperidol Decanoate [Haldol D] 150 mg IM Q21D 07/31/14 02/07/23 History Aspirin [Adult Low Dose Aspirin EC] 81 mg PO DAILY 12/07/19 02/07/23 History Brivaracetam [Briviact] 50 mg PO BID 12/07/19 02/07/23 History Levothyroxine Sodium [Synthroid] 50 mcg PO DAILY 12/07/19 02/07/23 History Sertraline [Zoloft] 100 mg PO DAILY 12/07/19 02/07/23 History lamoTRIgine [LaMICtal] 200 mg PO BID 12/07/19 02/07/23 History lisinopriL 20 mg PO HS 12/07/19 02/07/23 History metFORMIN HCL [Glucophage] 1,000 mg PO BID 12/07/19 02/07/23 History Albuterol Sulfate [Albuterol 1 puff PO RT-Q4H PRN 02/07/23 02/07/23 History Sulfate Hfa] Atorvastatin [Lipitor] 40 mg PO HS 02/07/23 02/07/23 History Docusate Sodium [Dok] 100 mg PO DAILY PRN 02/07/23 02/07/23 History Famotidine [Pepcid] 40 mg PO BID 02/07/23 02/07/23 History Fenofibrate [Lofibra] 160 mg PO DAILY 02/07/23 02/07/23 History Ferrous Sulfate [Feosol] 325 mg PO DAILY 02/07/23 02/07/23 History Fluticasone Propionate [Flovent 2 puff INHALATION RT-BID 02/07/23 02/07/23 History Hfa 220 mcg] Gabapentin [Neurontin] 400 mg PO BID 02/07/23 02/07/23 History Glimepiride [Amaryl] 2 mg PO DAILY 02/07/23 02/07/23 History Insulin NPH Hum/Reg Insulin Hm 18 unit SQ W/SUPPER 02/07/23 02/07/23 History [humuLIN 70/30 Kwikpen] Insulin NPH Hum/Reg Insulin Hm 33 unit SQ W/BRKFST 02/07/23 02/07/23 History [humuLIN 70/30 Kwikpen] Loperamide [Imodium] 4 mg PO BID PRN 02/07/23 02/07/23 History OXcarbazepine [Trileptal] 150 mg PO BID 02/07/23 02/07/23 History Pantoprazole Sodium [Protonix] 40 mg PO DAILY 02/07/23 02/07/23 History Propranolol [Inderal] 10 mg PO BID 02/07/23 02/07/23 History Tamsulosin HCl [Flomax] 0.4 mg PO HS 02/07/23 02/07/23 History lamoTRIgine [LaMICtal] 75 mg PO BID 02/07/23 02/07/23 History rOPINIRole HCL [Requip] 0.25 mg PO TID 02/07/23 02/07/23 History sitaGLIPtin [Januvia] 100 mg PO DAILY 02/07/23 02/07/23 History tiZANidine [Zanaflex] 2 mg PO TID PRN 02/07/23 02/07/23 History tiZANidine [Zanaflex] 4 mg PO TID PRN 02/07/23 02/07/23 History traZODone HCL 150 mg PO HS 02/07/23 02/07/23 History Allergies Allergy/AdvReac Type Severity Reaction Status Date / Time codeine Allergy Rash/Hives Verified 02/07/23 07:38 hydrocodone Allergy Unknown Verified 02/07/23 07:38 ketorolac [From Toradol] Allergy Abdominal Verified 02/07/23 07:38 Pain mirtazapine [From Remeron] Allergy Abdominal Verified 02/07/23 07:38 Pain pioglitazone [From Actos] Allergy Abdominal Verified 02/07/23 07:38 Pain Physical Examination - Vital Signs Vital Signs: Vital Signs Temp Pulse Pulse Resp BP BP Pulse Ox 02/07/23 10:00 85 23 124/101 90 L 02/07/23 09:30 92 22 136/94 91 L 02/07/23 09:06 90 L 02/07/23 09:00 81 16 135/79 88 L 02/07/23 08:30 97.7 F 75 14 147/97 90 L 02/07/23 08:00 87 17 139/102 89 L 02/07/23 07:30 80 13 149/100 85 L 02/07/23 07:00 85 15 146/93 88 L 02/07/23 06:30 84 15 147/101 91 L 02/07/23 06:00 82 19 141/79 91 L 02/07/23 05:30 83 18 139/91 91 L 02/07/23 05:00 18 147/99 91 L 02/07/23 04:30 77 20 161/92 93 L 02/07/23 04:00 98.2 F 77 19 141/88 96 02/07/23 03:40 98.2 F 73 17 161/92 94 L 02/07/23 03:30 134/103 02/07/23 03:22 80 18 143/97 95 02/07/23 03:07 75 18 144/104 97 02/07/23 02:52 80 18 141/98 97 02/07/23 02:37 76 18 149/96 97 02/07/23 02:22 80 18 165/88 97 02/07/23 02:10 90 143/105 02/07/23 01:59 98.2 F 90 20 147/92 96 Intake and Output 02/06/23 02/07/23 02/07/23 22:59 06:59 14:59 Intake Total 1300 400 Output Total 0 800 Balance 1300 -400 Intake: IV 1300 400 Sodium Chloride 0.9% 1, 300 400 000 ml @ 100 mls/hr IV . Q10H [facility] Rx#:[id number] Sodium Chloride 0.9% 1, 1000 000 ml @ 999 mls/hr IV . Q1H1M [facility] Rx#:[id number] Output: Urine 0 800 Other: Voiding Method Urinal # Voids 0 0 Weight 83.915 kg GENERAL: The patient is lying in bed and is not in acute distress. CHEST: The heart rate is regular rate rhythm. No murmurs to auscultation. LUNG: Clear to auscultation bilaterally no wheezing noted throughout. Not labored breathing. ABDOMEN/GI: Bowel sounds present in all 4 quadrants. No tenderness to palpation throughout. NEUROLOGICAL: Higher mental function: The patient is awake, alert, oriented to self, place and time. Patient is following commands. No aphasia and no neglect. Cranial nerves: The pupils are round, equal and reactive to light and accommodation. Visual conley are full to confrontation throughout. Extraocular movement is intact no nystagmus is noted. Facial sensation is normal to touch throughout. The facial strength is normal throughout. Hearing is normal bilaterally to hand rub. Tongue is midline and moved [id number] without any difficulty. No dysarthria is noted. Shoulder shrug is normal bilaterally. Motor: The strength is left upper extremity is 4-4+. Otherwise 5 over 5 throughout. Normal tone and bulk. Cerebellum: Normal finger to nose bilaterally. Sensation: Sensation is normal to touch throughout. Reflexes (right/left): 2+ throughout. Plantars are downgoing bilaterally. Results - Laboratory Findings CBC and BMP: 02/07/23 02:17 02/07/23 02:17 Abnormal Lab Findings: Abnormal Labs 02/07/23 02/07/23 02:17 03:49 BUN 5 L POC Glucose (mg/dL) 68 L Assessment and Plan Assessment: This is a 42-year-old gentleman who presented emergency department because of left-sided weakness. In the ED the patient had NIH stroke scale of a 10 and received IV TPA. Acute ischemic stroke (had left sided weakness) and patient received IV TPA. Nurse feels at times the patient examination is inconsistent. History of seizures and he has not had any seizures in a long time Hypertension Diabetes mellitus hyperlipidemia History of schizophrenia History of an anxiety panic attack Polypharmacy Tobacco use Plan: Patient has a repeat CT of the head at 3 AM for tomorrow. If negative for bleed then recommend restating home medication of ASA 81mg and in addition start Plav ix 75mg daily. Patient is on Lipitor 80 mg daily at bedtime and that's sufficient for secondary stroke prophylaxis. I'll also get an MRI of the brain for tomorrow. 2-D echo lipid panel are ordered and is pending I ordered a hypercoagulable workup The patient does have a stroke will lock consult hematology Continue neuro checks per TPA On cardiac monitoring PT OT and RESIDENTIAL INSTRUCTOR are consulted Maintain the systolic blood pressure less than 185 and the diastolic less than 110 He was counseled on tobacco cessation We'll defer the rest of the medical management to the primary team For DVT prophylaxis at use SCD. The plan is discussed with patient, his mother who is at bedside and his nurse. Thank you for the consultation. Time with Patient: Greater than 30
[2023-02-07 11:46] LABS: Glucose,Whole Blood 100 mg/dL (70-110)
--- NOTE | 2023-02-07 11:47 | CA ---
Transthoracic Echo Report Name: Geo Mcmahan Age: 42 Gender: M : 1980 Exam Date: 02/07/2023 08:08 Exam Location: [place] [facility] Ht (in): 66 Wt (lb): 185 Ordering Physician: Oc Velazquez MD Attending/Referring Phys: Residential Director Paul Magaña Procedure CPT: Indications: CVA Cardiac Hx: Technical Quality: Fair Contrast 1: Total Dose (mL): Contrast 2: Total Dose (mL): MEASUREMENTS (Male / Female) Normal Values 2D ECHO LV Diastolic Diameter PLAX 4.1 cm 4.2 - 5.9 / 3.9 - 5.3 cm LV Systolic Diameter PLAX 2.2 cm IVS Diastolic Thickness 4.1 cm 0.6 - 1.0 / 0.6 - 0.9 cm LVPW Diastolic Thickness 1.2 cm 0.6 - 1.0 / 0.6 - 0.9 cm LV Relative Wall Thickness 1.3 RV Internal Dim ED PLAX 1.2 cm LVOT Diameter 2.2 cm Aortic Root Diameter 3.1 cm LA Systolic Diameter LX 2.8 cm 3.0 - 4.0 / 2.7 - 3.8 cm LV Diastolic Volume MOD BP 56.3 cm??? 67 - 155 / 56 - 104 cm??? LV Systolic Volume MOD BP 15.0 cm??? 22 - 58 / 19 - 49 cm??? LV Ejection Fraction MOD BP 73.3 % >= 55 % LV Diastolic Volume MOD 4C 63.8 cm??? LV Systolic Volume MOD 4C 13.9 cm??? LV Ejection Fraction MOD 4C 78.2 % LV Diastolic Length 4C 7.4 cm LV Systolic Length 4C 6.5 cm LV Diastolic Volume MOD 2C 50.5 cm??? LV Systolic Volume MOD 2C 16.2 cm??? LV Ejection Fraction MOD 2C 68.0 % LV Diastolic Length 2C 7.5 cm LV Systolic Length 2C 6.5 cm LA Volume 53.2 cm??? 18 - 58 / 22 - 52 cm??? DOPPLER AV Peak Velocity 151.9 cm/s AV Peak Gradient 9.2 mmHg Mitral E Point Velocity 78.6 cm/s Mitral A Point Velocity 81.7 cm/s Mitral E to A Ratio 1.0 MV Deceleration Time 252.6 ms MV E' Velocity 11.6 cm/s Mitral E to MV E' Ratio 6.8 TR Peak Velocity 181.4 cm/s TR Peak Gradient 13.2 mmHg Right Ventricular Systolic Press 19.6 mmHg PV Peak Velocity 115.4 cm/s PV Peak Gradient 5.3 mmHg FINDINGS Left Ventricle Left ventricular ejection fraction is estimated at 60-65 %. Right Ventricle Normal right ventricular size and function. Right Atrium Normal right atrial size. Left Atrium LA appears mildly enlarged. LA Volume index= 27.4 ml/m2 Mitral Valve Structurally normal mitral valve. No mitral stenosis, regurgitation or prolapse. Aortic Valve Trileaflet aortic valve. No aortic valve stenosis or regurgitation. Tricuspid Valve Structurally normal tricuspid valve. Mild TR. RVSP= 28mmhg. Pulmonic Valve Pulmonic valve not well visualized. Trace [place]. Pericardium Normal pericardium. Aorta Normal size aortic root and proximal ascending aorta. CONCLUSIONS Normal LV systolic function Normal RV size and systolic function Previewed by: Dr. Prabhakar Gonzalez MD (Electronically Signed) Final Date: 07 Feb 2023 11:46
--- NOTE | 2023-02-07 15:32 | CT ---
EXAMINATION TYPE: CT brain wo con DATE OF EXAM: 02/07/2023 COMPARISON: 02/07/2023 HISTORY: 42 year-old male neurologic deficit, acute, stroke suspected, confusion, ams TECHNIQUE: Examination was done in axial plane without intravenous contrast. Coronal and sagittal r econstructions performed. CT DLP: 1123.4 mGycm Automated exposure control for dose reduction was used. FINDINGS: There is no evidence of acute intracranial hemorrhage, acute ischemic changes, mass, mass-effect, or extra-axial fluid collection. There is no effacement of cerebral sulci or basal subarachnoid cister ns. There is no hydrocephalus. There is no midline shift. Dumont-white matter distinction is preserv ed. Either an old lacunar infarct or prominent perivascular space left basal ganglia. Multilobulated mucosal thickening left maxillary sinus. Mastoid air cells well pneumatized. Query jordyn e exophthalmos. The appearance may be due to the oblique plane of imaging. IMPRESSION: No acute intracranial abnormality seen.
[2023-02-07 16:23] LABS: Glucose,Whole Blood 130 mg/dL (70-110)
[2023-02-07] MEDS ORDERED: ONDANSETRON 4 MG/2 ML VIAL IVP PRN (16:55)
[2023-02-07 19:19] LABS: Glucose,Whole Blood 132 mg/dL (70-110)
[2023-02-07] MEDS: ATORVASTATIN 80 MG TAB PO SCH (19:26)
[2023-02-07 20:15] LABS: Glucose,Whole Blood 182 mg/dL (70-110)
[2023-02-07] MEDS: ACETAMINOPHEN TAB 500 MG TAB PO PRN (23:21)
[2023-02-08] MEDS: SODIUM CHLORIDE 0.9% 1,000 ML IV SCH ×2 (00:30→09:54)
[2023-02-08] MEDS: MORPHINE SULFATE 4 MG/ML SYRINGE IVP PRN ×5 (03:52→21:36)
--- NOTE | 2023-02-08 04:03 | CT ---
EXAM: CT Head Without Intravenous Contrast CLINICAL HISTORY: ITS.REASON CT Reason: 24 hours post TPA TECHNIQUE: Axial computed tomography images of the head/brain without intravenous contrast. CTDI is 49.2 mGy and DLP is 1143.4 mGy-cm. This CT exam was performed using one or more of the following dose reduction techniques: automated exposure control, adjustment of the mA and/or kV according to patient size, and/or use of iterative reconstruction technique. COMPARISON: 02/07/2023 FINDINGS: Brain: Left basal ganglia chronic lacunar infarct unchanged from prior study. No hemorrhage. No significant white matter disease. Ventricles: Unremarkable. No ventriculomegaly. Bones/joints: Unremarkable. No acute fracture. Soft tissues: Unremarkable. Sinuses: Unremarkable as visualized. No acute sinusitis. Mastoid air cells: Unremarkable as visualized. No mastoid effusion. IMPRESSION: No acute findings in the head/brain.
[2023-02-08] MEDS: ACETAMINOPHEN TAB 500 MG TAB PO PRN (06:40)
[2023-02-08 07:18] LABS: Glucose,Whole Blood 131 mg/dL (70-110)
[2023-02-08] MEDS: INSULIN ASPART (NovoLOG) 100 UNIT/ML VIAL SQ SCH ×4 (07:19→21:46)
[2023-02-08] MEDS: CLOPIDOGREL 75 MG TAB PO SCH (08:48)
[2023-02-08] MEDS: ASPIRIN 81 MG PO SCH (08:48)
[2023-02-08] MEDS ORDERED: ALBUTEROL NEBULIZED 2.5 MG/3 ML INHALATION PRN (08:49)
[2023-02-08] MEDS ORDERED: DEXTROSE 50% SYRINGE 50 ML IVP PRN ×2 (08:56)
[2023-02-08] MEDS: lamoTRIgine 25 MG TAB PO SCH ×2 (09:51→21:34)
[2023-02-08] MEDS: FENOFIBRATE 160 MG TAB PO SCH (09:51)
[2023-02-08] MEDS: OXcarbazepine 150 MG TAB PO SCH ×2 (09:52→22:56)
[2023-02-08] MEDS: SERTRALINE 100 MG TAB PO SCH (09:52)
[2023-02-08] MEDS: NON FORMULARY DRUG (Brivaracetam [Briviact] 50 MG Tablet) PO SCH ×2 (09:54→23:13)
[2023-02-08] MEDS: HEPARIN SODIUM,PORCINE/PF 5,000 UNIT/0.5 ML SYRINGE SQ SCH ×2 (09:58→15:07)
[2023-02-08] MEDS: PANTOPRAZOLE 40 MG TABLET PO SCH (09:58)
[2023-02-08] MEDS: lamoTRIgine 100 MG TAB PO SCH ×2 (09:58→21:33)
[2023-02-08] MEDS: GABAPENTIN 400 MG CAP PO SCH ×2 (09:58→21:34)
[2023-02-08] MEDS: LEVOTHYROXINE 50 MCG TAB PO SCH (09:59)
--- NOTE | 2023-02-08 10:59 | P.PN ---
Subjective Progress Note Date: 02/08/23 Principal diagnosis: CVA. Pulmonary consult dated 02/07/2023. This is a 42-year-old male, with multiple medical problems including chronic tobacco use, COPD, hypertension, hyperlipidemia, seizure disorder, diabetes, and bipolar disorder. The patient was seen in the emergency department, at sometime after 1:00, closer to 2 AM, with complaints of slurred speech, left-sided wea kness, and left facial droop. He apparently went to bed at 10:30, without any complaints. He apparently woke up at about 1:00 in the morning, and did not have the ability to move his left side. Patient was evaluated for CVA, and I did speak to the ER physician last night. The patient did receive TPA, about 1- 1/2 hours after symptoms began. His initial NIH score was 10. Computed tomography scan of the brain was negative. Currently he is on room air. Is getting saline at 100 mL an hour. White count 9.7, hemoglobin 16.6, hematocrit 47.5, with a normal platelet count. Coagulation studies are normal. Sodium 145, potassium 3.9, chlorides 104, CO2 29, anion gap 12, BUN 5, creatinine 0.94. The rest of the comprehensive metabolic profile is normal. Brain CT showed nothing acute. CT angiogram of the neck, was negative. The patient is currently resting comfortably in the intensive care unit, room 266. He still has a left facial droop, and, he does have weakness to the left side of his body, left upper extremity, greater than left lower extremity. Progress note dated 02/08/2023. 42-year-old male seen yesterday in consultation for a right CVA with left-sided the patient presented to the emergency department, with an NIH score of 10. He received TPA within 1-1/2 hours of symptoms beginning. Today, he is resting comfortably in the ICU, room 266. 2 L of oxygen. No IV. His left facial droop is much improved. His left upper extremity strength and movement is much improv ed as well. No new labs today other than a glucose of 131. Repeat brain CT today, showed no acute findings. Objective - Vital Signs Vital signs: Vital Signs Temp 98.7 F 02/08/23 08:00 Pulse 73 02/08/23 08:30 Resp 13 02/08/23 08:30 BP 135/94 02/08/23 08:00 Pulse Ox 95 02/08/23 08:30 FiO2 Intake & Output 02/07/23 02/08/23 02/08/23 18:59 06:59 18:59 Intake Total 1200 2400 200 Output Total 2200 400 0 Balance -1000 2000 200 Weight 85.6 kg Intake: IV 1200 1200 200 Sodium Chloride 0.9% 1, 1200 1200 200 000 ml @ 100 mls/hr IV . Q10H [facility] Rx#:[id number] Oral 1200 Output: Urine 2200 400 0 Other: Voiding Method Urinal Toilet Toilet Urinal Urinal # Voids 0 0 500 - Exam No acute distress, oriented 3. Currently on 2 L. HEENT examination is grossly unremarkable. Left facial droop, which is improved. Neck supple. Full range of motion. No adenopathy thyromegaly or neck vein distention. Cardiovascular examination reveals regular rhythm rate. S1-S2 normal. No S3 or S4. No discernible murmur noted. Heart rate 73 bpm. Lungs reveal mostly clear breath sounds. Minimal rhonchi. Crackles. 2 L saturation is 95%. Abdomen soft bowel sounds are heard. No masses or tenderness. Extremities are intact. No cyanosis clubbing or edema. Skin is without rash or lesion. Neurologic examination reveals a well-developed male, with a left facial droop, and weakness of the left upper extremity greater than the left lower extremity. The left-sided weakness is much improved, and involves more his left upper extremity than his left lower extremity. - Labs CBC & Chem 7: 02/07/23 02:17 02/07/23 02:17 Labs: Abnormal Lab Results - Last 24 Hours (Table) 02/07/23 02/07/23 02/07/23 Range/Units 16:22 19:18 20:13 POC Glucose (mg/dL) 130 H 132 H 182 H (70-110) mg/dL 02/08/23 Range/Units 07:16 POC Glucose (mg/dL) 131 H (70-110) mg/dL Assessment and Plan Assessment: Acute right-sided CVA, with left sided findings, including left facial droop, and left upper extremity weakness greater than left lower extremity weakness. The patient did receive TPA, within 1-1/2 hours of symptoms beginning. History of ongoing tobacco use, with nicotine addiction, and underlying COPD. History of hypertension. History of hyperlipidemia. History of seizure disorder. History of diabetes mellitus. History of bipolar disorder. Vague history of asthma. Plan: Plan dated 02/07/2023. The patient appears be doing better. He still has significant left upper extremity weakness, and a left facial droop. Nonetheless, the patient does feel better. His left lower extremity moves reasonably well. The patient is resting comfortably in the intensive care unit. He is on room air. He's getting saline at 100 mL an hour. He received the TPA within 1-1/2 hours of symptom onset. Labs, x-rays, and medications are reviewed. Prognosis is certainly guarded. The patient is counseled about the importance of never smoking ever again. Plan dated 02/08/2023. The patient appears to be doing much better. His left facial droop is much improved. Likewise, the strength in the left upper extremity is much improved. The patient had an uneventful night. He continues on oxygen at 2 L. He likely does have some underlying COPD. The patient could be transferred out to the floor. Labs, x-rays, medications are all reviewed. Prognosis is guarded. Computed tomography scan of the brain today, showed no acute abnormalities. Time with Patient: Less than 30
[2023-02-08] MEDS: FLUTICASONE 110 MCG INHALER INHALATION SCH ×2 (11:38→21:12)
[2023-02-08 11:41] LABS: Glucose,Whole Blood 163 mg/dL (70-110)
[2023-02-08 13:18] LABS: Glucose,Whole Blood 179 mg/dL (70-110)
[2023-02-08 14:26] LABS: HDL Cholesterol 20.3 mg/dL (40.00-60.00)
--- NOTE | 2023-02-08 14:35 | P.PN ---
Subjective Progress Note Date: 02/08/23 The patient is a 42-year-old male with a PMH of type II DM, hypertension, hyperlipidemia, COPD, hypothyroidism who presented to the emergency room with complaints of facial droop, slurred speech and left-sided weakness. The patient states that he went to sleep around 10:30 PM and woke up at 1:30 AM with the above symptoms. In the emergency room, CT angiogram head and neck was unremarkable. CT brain was unremarkable. EKG revealed sinus rhythm at [address]/T-wave changes noted as reviewed by me. Laboratory evaluation was remarkable for glucose of 68. Patient underwent TPA and admitted to ICU for further management. 02/07 Patient seen and examined. No acute events overnight. Patient reports improvement in his left upper and lower extremity. His left lower extremity weakness has almost resolved. He reports continued facial droop. Patient reports 10 out of 10 headache which he describes as cluster migraine. He reports drinking [address] drinks daily. Stat CT head was which showed no acute changes. 02/08 Patient seen and examined. No acute events overnight. He reports pain in h is left arm below the shoulder. Facial droop has improved. He continues to report headache likely related to caffeine withdrawal. Repeat CT head negative. A1c 6.4. Lipid panel shows TG of 674. CHACE negative. Homocysteine 12.6. General: non toxic, no distress, appears at stated age Derm: warm, dry Head: atraumatic, normocephalic, symmetric Eyes: EOMI, no lid lag, anicteric sclera Cardiovascular: S1S2 reg, no murmur Lungs: CTA bilateral, no rhonchi, no rales , no accessory muscle use Ext: no gross muscle atrophy, no edema, no contractures Neuro: CN II-XI grossly intact except L sided facial droop which has improved from yesterday, LUE 4/5 strength, LLE 5/5 strength, RU and RLE 5/5 strength Psych: Alert, oriented, appropriate affect Acute CVA status post TPA Headache Chronic conditions: Type II DM, hypertension, hyperlipidemia, COPD, hypothyroidism Based on my assessment of this patient, this patient meets a moderate complexity level of care. Patient has a new diagnosis of CVA with uncertain prognosis. 3 CT heads have been negative so far. He is s/p TPA. Echocardiogram shows normal LV systolic function, normal RV size. Brain MRI is pending. PT, OT, ST on board. Hematologic workup pending. Advanced Neurochecks and telemetry ordered. I have reviewed the following corporate consultant notes: Neurology and Wilderness Guide note reviewed from 02/08. I have reviewed the results of the following tests: Repeat CT head negative. A1c 6.4. Lipid panel shows TG of 674. CHACE negative. Homocysteine 12.6. I have discussed the management of this patient with the following physician: The case was discussed with Dr. Nye, await MRI brain. Objective - Vital Signs Vital signs: Vital Signs Temp 98.7 F 02/08/23 08:00 Pulse 74 02/08/23 13:27 Resp 16 02/08/23 13:09 BP 140/77 02/08/23 13:09 Pulse Ox 95 02/08/23 13:09 FiO2 Intake & Output 02/07/23 02/08/23 02/08/23 18:59 06:59 18:59 Intake Total 1200 2400 200 Output Total 2200 400 0 Balance -1000 2000 200 Weight 85.6 kg Intake: IV 1200 1200 200 Sodium Chloride 0.9% 1, 1200 1200 200 000 ml @ 100 mls/hr IV . Q10H [facility] Rx#:[id number] Oral 1200 Output: Urine 2200 400 0 Other: Voiding Method Urinal Toilet Toilet Urinal # Voids 0 0 500 - Labs CBC & Chem 7: 02/07/23 02:17 02/07/23 02:17 Labs: Abnormal Lab Results - Last 24 Hours (Table) 02/07/23 02/07/23 02/07/23 Range/Units 16:22 19:18 20:13 POC Glucose (mg/dL) 130 H 132 H 182 H (70-110) mg/dL Hemoglobin A1c (0.0-6.0) % Triglycerides (0.00-149.00) mg/dL HDL Cholesterol (40.00-60.00) mg/dL 02/08/23 02/08/23 02/08/23 Range/Units 06:38 06:38 07:16 POC Glucose (mg/dL) 131 H (70-110) mg/dL Hemoglobin A1c 6.4 H (0.0-6.0) % Triglycerides 674.00 H (0.00-149.00) mg/dL HDL Cholesterol 20.30 L (40.00-60.00) mg/dL 02/08/23 02/08/23 Range/Units 11:40 13:17 POC Glucose (mg/dL) 163 H 179 H (70-110) mg/dL Hemoglobin A1c (0.0-6.0) % Triglycerides (0.00-149.00) mg/dL HDL Cholesterol (40.00-60.00) mg/dL
[2023-02-08 14:38] LABS: Chol/HDL Ratio 7.29 Ratio; LDL Cholesterol,Direct Reflex 41.7 mg/dL (0.00-129.00)
--- NOTE | 2023-02-08 14:40 | P.PN ---
Subjective Progress Note Date: 02/08/23 Patient is seen at bedside and he feels about the same he continues to have some weakness in the left upper extremity. Yesterday the patient was complaining of a headache and he had a CT of the head which was negative for any acute or subacute bleed. Objective - Vital Signs Vital signs: Vital Signs Temp 98.7 F 02/08/23 08:00 Pulse 74 02/08/23 13:27 Resp 16 02/08/23 13:09 BP 140/77 02/08/23 13:09 Pulse Ox 95 02/08/23 13:09 FiO2 Intake & Output 02/07/23 02/08/23 02/08/23 18:59 06:59 18:59 Intake Total 1200 2400 200 Output Total 2200 400 0 Balance -1000 2000 200 Weight 85.6 kg Intake: IV 1200 1200 200 Sodium Chloride 0.9% 1, 1200 1200 200 000 ml @ 100 mls/hr IV . Q10H [facility] Rx#:[id number] Oral 1200 Output: Urine 2200 400 0 Other: Voiding Method Urinal Toilet Toilet Urinal # Voids 0 0 500 - Exam GENERAL: The patient is lying in bed and is not in acute distress. NEUROLOGICAL: Higher mental function: The patient is awake, alert, oriented to self, place and time. Patient is following commands. No aphasia and no neglect. Cranial nerves: The pupils are round, equal and reactive to light and accommodation. Visual conley are full to confrontation throughout. Extraocular movement is intact no nystagmus is noted. Facial sensation is normal to touch throughout. The facial strength is normal throughout. Hearing is normal bilaterally to hand rub. Tongue is midline and moved [id number] without any difficulty. No dysarthria is noted. Shoulder shrug is normal bilaterally. Motor: The strength is left upper extremity is 4-4+. Otherwise 5 over 5 throughout. Normal tone and bulk. Cerebellum: Normal finger to nose bilaterally. Sensation: Sensation is normal to touch throughout. Reflexes (right/left): 2+ throughout. Plantars are downgoing bilaterally. Some other workup during this hospital visit consisted of: Chemistry panel is unremarkable Triglyceride is 674, cholesterol is 148, LDL there is no number on the LDL. HDL is 20 Hemoglobin A1c 6.4 Homocysteine is 12.60 which is normal, ESR is 8. CHACE is negative. CT of the head was negative. I personally reviewed the CT and I agree there is no acute subacute ischemia there is no bleed. CT angiography of the head and neck was also neSole was felt the patient was a TPA candidate since he was within the window. CT head 24 hour post-IV TPA was reported as no acute finding in the head or/brain 2-D echo was reported as normal left ventricle systolic function. Normal right ventricular size and systolic function. - Labs CBC & Chem 7: 02/07/23 02:17 02/07/23 02:17 Labs: Abnormal Lab Results - Last 24 Hours (Table) 02/07/23 02/07/23 02/07/23 Range/Units 16:22 19:18 20:13 POC Glucose (mg/dL) 130 H 132 H 182 H (70-110) mg/dL Hemoglobin A1c (0.0-6.0) % Triglycerides (0.00-149.00) mg/dL HDL Cholesterol (40.00-60.00) mg/dL 02/08/23 02/08/23 02/08/23 Range/Units 06:38 06:38 07:16 POC Glucose (mg/dL) 131 H (70-110) mg/dL Hemoglobin A1c 6.4 H (0.0-6.0) % Triglycerides 674.00 H (0.00-149.00) mg/dL HDL Cholesterol 20.30 L (40.00-60.00) mg/dL 02/08/23 02/08/23 Range/Units 11:40 13:17 POC Glucose (mg/dL) 163 H 179 H (70-110) mg/dL Hemoglobin A1c (0.0-6.0) % Triglycerides (0.00-149.00) mg/dL HDL Cholesterol (40.00-60.00) mg/dL Assessment and Plan Assessment: This is a 42-year-old gentleman who presented emergency department because of left-sided weakness. In the ED the patient had NIH stroke scale of a 10 and received IV TPA. Acute ischemic stroke (had left sided weakness) and patient received IV TPA. Hypertriglycerdermia: History of seizures and he has not had any seizures in a long time Hypertension Diabetes mellitus hyperlipidemia History of schizophrenia History of an anxiety panic attack Polypharmacy Tobacco use Plan: Patient had the 24 hour post-IV TPA and was negative for any acute or subacute ischemia. Recommend restating home medication of ASA 81mg and in addition start Plavix 75mg daily. Patient is on Lipitor 80 mg daily at bedtime and that's sufficient for secondary stroke prophylaxis. Pending MRI of the brain. I ordered a hypercoagulable workup and pending results. If the patient does have a stroke on MRI will consult hematology team. Continue neuro checks On cardiac monitoring PT OT and CHIEF SECURITY AND SAFETY OFFICER are consulted He was counseled on tobacco cessation For Hypertriglycerdermia: he was started on fenofibrate 160mg daily by primary team. As stated earlier the patient is on polypharmacy and he needs to have his med ication modified hopefully by his combination primary, neurology and psychiatry team of possible as outpatient. We'll defer the rest of the medical management to the primary team For DVT prophylaxis: Started on subq heparin 5000U every 8 hours. The plan is discussed with patient and his nurse. Time with Patient: Less than 30
[2023-02-08 16:56] LABS: Glucose,Whole Blood 168 mg/dL (70-110)
[2023-02-08 19:56] LABS: Glucose,Whole Blood 178 mg/dL (70-110)
[2023-02-08] MEDS ORDERED: FLUTICASONE 110 MCG INHALER INHALATION SCH (20:00)
[2023-02-08] MEDS: TAMSULOSIN 0.4 MG CAP.ER.24H PO SCH (21:33)
[2023-02-08] MEDS: ATORVASTATIN 80 MG TAB PO SCH (21:34)
[2023-02-09 00:41] LABS: Glucose,Whole Blood 127 mg/dL (70-110)
[2023-02-09] MEDS: HEPARIN SODIUM,PORCINE/PF 5,000 UNIT/0.5 ML SYRINGE SQ SCH ×3 (01:11→14:55)
[2023-02-09] MEDS: MORPHINE SULFATE 4 MG/ML SYRINGE IVP PRN ×6 (01:12→21:55)
[2023-02-09] MEDS: PANTOPRAZOLE 40 MG TABLET PO SCH (05:52)
[2023-02-09] MEDS: LEVOTHYROXINE 50 MCG TAB PO SCH (05:52)
[2023-02-09 06:13] LABS: Glucose,Whole Blood 152 mg/dL (70-110)
[2023-02-09] MEDS: INSULIN ASPART (NovoLOG) 100 UNIT/ML VIAL SQ SCH ×4 (06:49→20:57)
[2023-02-09] MEDS: NON FORMULARY DRUG (Brivaracetam [Briviact] 50 MG Tablet) PO SCH ×2 (07:34→20:25)
[2023-02-09] MEDS: OXcarbazepine 150 MG TAB PO SCH ×2 (07:39→20:54)
[2023-02-09] MEDS: CLOPIDOGREL 75 MG TAB PO SCH (07:39)
[2023-02-09] MEDS: GABAPENTIN 400 MG CAP PO SCH ×2 (07:39→07:40)
[2023-02-09] MEDS: lamoTRIgine 100 MG TAB PO SCH ×2 (07:40→20:52)
[2023-02-09] MEDS: SERTRALINE 100 MG TAB PO SCH (07:40)
[2023-02-09] MEDS: ASPIRIN 81 MG PO SCH (07:40)
[2023-02-09] MEDS: lamoTRIgine 25 MG TAB PO SCH ×2 (07:40→20:53)
[2023-02-09] MEDS: FENOFIBRATE 160 MG TAB PO SCH (07:40)
[2023-02-09] MEDS: ACETAMINOPHEN TAB 500 MG TAB PO PRN ×3 (08:40→20:54)
[2023-02-09] MEDS: FLUTICASONE 110 MCG INHALER INHALATION SCH ×2 (09:19→21:01)
--- NOTE | 2023-02-09 10:38 | P.PN ---
Subjective Progress Note Date: 02/09/23 Principal diagnosis: CVA. Pulmonary consult dated 02/07/2023. This is a 42-year-old male, with multiple medical problems including chronic tobacco use, COPD, hypertension, hyperlipidemia, seizure disorder, diabetes, and bipolar disorder. The patient was seen in the emergency department, at sometime after 1:00, closer to 2 AM, with complaints of slurred speech, left-sided wea kness, and left facial droop. He apparently went to bed at 10:30, without any complaints. He apparently woke up at about 1:00 in the morning, and did not have the ability to move his left side. Patient was evaluated for CVA, and I did speak to the ER physician last night. The patient did receive TPA, about 1- 1/2 hours after symptoms began. His initial NIH score was 10. Computed tomography scan of the brain was negative. Currently he is on room air. Is getting saline at 100 mL an hour. White count 9.7, hemoglobin 16.6, hematocrit 47.5, with a normal platelet count. Coagulation studies are normal. Sodium 145, potassium 3.9, chlorides 104, CO2 29, anion gap 12, BUN 5, creatinine 0.94. The rest of the comprehensive metabolic profile is normal. Brain CT showed nothing acute. CT angiogram of the neck, was negative. The patient is currently resting comfortably in the intensive care unit, room 266. He still has a left facial droop, and, he does have weakness to the left side of his body, left upper extremity, greater than left lower extremity. Progress note dated 02/08/2023. 42-year-old male seen yesterday in consultation for a right CVA with left-sided the patient presented to the emergency department, with an NIH score of 10. He received TPA within 1-1/2 hours of symptoms beginning. Today, he is resting comfortably in the ICU, room 266. 2 L of oxygen. No IV. His left facial droop is much improved. His left upper extremity strength and movement is much improv ed as well. No new labs today other than a glucose of 131. Repeat brain CT today, showed no acute findings. Progress note dated 02/09/2023. 42-year-old male who was seen in the intensive care unit yesterday, for right- sided CVA, with left-sided facial droop and left-sided weakness, left upper ex tremity greater than left lower extremity. The patient did receive TPA, within 1-1/2 hours of being admitted to the emergency department. Currently, he is seen today in room 362. He's on room air. He's not receiving any IV fluids. His left upper extremity strength is improved, and left facial droop is barely noticeable. Labs today include a glucose of 152. Objective - Vital Signs Vital signs: Vital Signs Temp 98.1 F 02/09/23 07:35 Pulse 91 02/09/23 07:35 Resp 16 02/09/23 07:35 BP 140/82 02/09/23 07:35 Pulse Ox 96 02/09/23 09:19 FiO2 Intake & Output 02/08/23 02/09/23 02/09/23 18:59 06:59 18:59 Intake Total 318 240 Output Total 0 Balance 318 240 Intake: IV 200 Sodium Chloride 0.9% 1, 200 000 ml @ 100 mls/hr IV . Q10H [facility] Rx#:[id number] Oral 118 240 Output: Urine 0 Other: Voiding Method Toilet Toilet Toilet # Voids 500 1 - Exam No acute distress, oriented 3. Currently on room air. HEENT examination is grossly unremarkable. Left facial droop, which is improved. Neck supple. Full range of motion. No adenopathy thyromegaly or neck vein distention. Cardiovascular examination reveals regular rhythm rate. S1-S2 normal. No S3 or S4. No discernible murmur noted. Heart rate 90 bpm. Lungs reveal mostly clear breath sounds. Minimal rhonchi. Crackles. Room air saturation is 96%. Abdomen soft bowel sounds are heard. No masses or tenderness. Extremities are intact. No cyanosis clubbing or edema. Skin is without rash or lesion. Neurologic examination reveals a well-developed male, with a left facial droop, and weakness of the left upper extremity greater than the left lower extremity. The left-sided weakness is much improved, and involves more his left upper extremity than his left lower extremity. - Labs CBC & Chem 7: 02/07/23 02:17 02/07/23 02:17 Labs: Abnormal Lab Results - Last 24 Hours (Table) 02/08/23 02/08/23 02/08/23 Range/Units 06:38 06:38 11:40 POC Glucose (mg/dL) 163 H (70-110) mg/dL Hemoglobin A1c 6.4 H (0.0-6.0) % Triglycerides 674.00 H (0.00-149.00) mg/dL HDL Cholesterol 20.30 L (40.00-60.00) mg/dL 02/08/23 02/08/23 02/08/23 Range/Units 13:17 16:52 19:53 POC Glucose (mg/dL) 179 H 168 H 178 H (70-110) mg/dL Hemoglobin A1c (0.0-6.0) % Triglycerides (0.00-149.00) mg/dL HDL Cholesterol (40.00-60.00) mg/dL 02/09/23 02/09/23 Range/Units 00:38 06:11 POC Glucose (mg/dL) 127 H 152 H (70-110) mg/dL Hemoglobin A1c (0.0-6.0) % Triglycerides (0.00-149.00) mg/dL HDL Cholesterol (40.00-60.00) mg/dL Assessment and Plan Assessment: Acute right-sided CVA, with left sided findings, including left facial droop, and left upper extremity weakness greater than left lower extremity weakness. The patient did receive TPA, within 1-1/2 hours of symptoms beginning. History of ongoing tobacco use, with nicotine addiction, and underlying COPD. History of hypertension. History of hyperlipidemia. History of seizure disorder. History of diabetes mellitus. History of bipolar disorder. Vague history of asthma. Plan: Plan dated 02/07/2023. The patient appears be doing better. He still has significant left upper extremity weakness, and a left facial droop. Nonetheless, the patient does feel better. His left lower extremity moves reasonably well. The patient is resting comfortably in the intensive care unit. He is on room air. He's getting saline at 100 mL an hour. He received the TPA within 1-1/2 hours of symptom onset. Labs, x-rays, and medications are reviewed. Prognosis is certainly guarded. The patient is counseled about the importance of never smoking ever again. Plan dated 02/08/2023. The patient appears to be doing much better. His left facial droop is much improved. Likewise, the strength in the left upper extremity is much improved. The patient had an uneventful night. He continues on oxygen at 2 L. He likely does have some underlying COPD. The patient could be transferred out to the floor. Labs, x-rays, medications are all reviewed. Prognosis is guarded. Computed tomography scan of the brain today, showed no acute abnormalities. Plan dated 02/09/2023. The patient is doing much better. The patient is not receiving any IV fluids or supplemental oxygen. The patient's left facial droop was barely noticeable. Left-sided weakness, is much improved. Labs, x-rays, and medications are reviewed. Prognosis is guarded. We will continue to follow the patient and make recommendations along the way. Time with Patient: Less than 30
[2023-02-09 11:19] LABS: Glucose,Whole Blood 174 mg/dL (70-110)
--- NOTE | 2023-02-09 12:29 | P.PN ---
Subjective Progress Note Date: 02/09/23 Patient is seen at bedside and feels about the same. Per the nursing staff they feel all he ask about is pain medication. Objective - Vital Signs Vital signs: Vital Signs Temp 98.1 F 02/09/23 07:35 Pulse 81 02/09/23 11:01 Resp 16 02/09/23 11:01 BP 141/86 02/09/23 11:01 Pulse Ox 97 02/09/23 11:01 FiO2 Intake & Output 02/08/23 02/09/23 02/09/23 18:59 06:59 18:59 Intake Total 318 240 Output Total 0 Balance 318 240 Intake: IV 200 Sodium Chloride 0.9% 1, 200 000 ml @ 100 mls/hr IV . Q10H [facility] Rx#:[id number] Oral 118 240 Output: Urine 0 Other: Voiding Method Toilet Toilet Toilet # Voids 500 1 1 - Exam GENERAL: The patient is lying in bed and is not in acute distress. NEUROLOGICAL: Higher mental function: The patient is awake, alert, oriented to self, place and time. Patient is following commands. No aphasia and no neglect. Cranial nerves: The pupils are round, equal and reactive to light and accommodation. Visual conley are full to confrontation throughout. Extraocular movement is intact no nystagmus is noted. Facial sensation is normal to touch throughout. The facial strength is normal throughout. Hearing is normal bilaterally to hand rub. Tongue is midline and moved [id number] without any difficulty. No dysarthria is noted. Shoulder shrug is normal bilaterally. Motor: The strength is left upper extremity is 4-4+. Otherwise 5 over 5 throughout. Normal tone and bulk. Cerebellum: Normal finger to nose bilaterally. Sensation: Sensation is normal to touch throughout. Reflexes (right/left): 2+ throughout. Plantars are downgoing bilaterally. Some other workup during this hospital visit consisted of: Chemistry panel is unremarkable Triglyceride is 674, cholesterol is 148, LDL there is no number on the LDL. HDL is 20 Hemoglobin A1c 6.4 Homocysteine is 12.60 which is normal, ESR is 8. CHACE is negative. CT of the head was negative. I personally reviewed the CT and I agree there is no acute subacute ischemia there is no bleed. CT angiography of the head and neck was also neSole was felt the patient was a TPA candidate since he was within the window. CT head 24 hour post-IV TPA was reported as no acute finding in the head or/brain 2-D echo was reported as normal left ventricle systolic function. Normal right ventricular size and systolic function. - Labs CBC & Chem 7: 02/07/23 02:17 02/07/23 02:17 Labs: Abnormal Lab Results - Last 24 Hours (Table) 02/08/23 02/08/23 02/08/23 Range/Units 06:38 06:38 13:17 POC Glucose (mg/dL) 179 H (70-110) mg/dL Hemoglobin A1c 6.4 H (0.0-6.0) % Triglycerides 674.00 H (0.00-149.00) mg/dL HDL Cholesterol 20.30 L (40.00-60.00) mg/dL 02/08/23 02/08/23 02/09/23 Range/Units 16:52 19:53 00:38 POC Glucose (mg/dL) 168 H 178 H 127 H (70-110) mg/dL Hemoglobin A1c (0.0-6.0) % Triglycerides (0.00-149.00) mg/dL HDL Cholesterol (40.00-60.00) mg/dL 02/09/23 02/09/23 Range/Units 06:11 11:17 POC Glucose (mg/dL) 152 H 174 H (70-110) mg/dL Hemoglobin A1c (0.0-6.0) % Triglycerides (0.00-149.00) mg/dL HDL Cholesterol (40.00-60.00) mg/dL Assessment and Plan Assessment: This is a 42-year-old gentleman who presented emergency department because of left-sided weakness. In the ED the patient had NIH stroke scale of a 10 and received IV TPA. Acute ischemic stroke (had left sided weakness) and patient received IV TPA. Hypertriglycerdermia: History of seizures and he has not had any seizures in a long time Hypertension Diabetes mellitus hyperlipidemia History of schizophrenia History of an anxiety panic attack Polypharmacy Tobacco use Plan: Patient had the 24 hour post-IV TPA and was negative for any acute or subacute ischemia. Continue homeASA 81mg. In addition started Plavix 75mg daily. She to be on dual antiplatelets for 21 days and after 21 days to stop Aspirin but continue Plavix indefinitely. Patient is on Lipitor 80 mg daily at bedtime and that's sufficient for secondary stroke prophylaxis. Pending MRI of the brain. Hypercoagulable workup pending results. If the patient does have a stroke on MRI will consult hematology team. Continue neuro checks On cardiac monitoring PT OT and CAR SALES REPRESENTATIVE are consulted He was counseled on tobacco cessation For Hypertriglycerdermia: he was started on fenofibrate 160mg daily by primary team. As stated earlier the patient is on polypharmacy and he needs to have his medication modified hopefully by his combination primary, neurology and psychiatry team of possible as outpatient. We'll defer the rest of the medical management to the primary team For DVT prophylaxis: On subq heparin 5000U every 8 hours. The plan is discussed with patient and his nurse. Dr. Davis will start neurology service tomorrow A.M. Time with Patient: Less than 30
[2023-02-09 16:28] LABS: Glucose,Whole Blood 176 mg/dL (70-110)
--- NOTE | 2023-02-09 18:00 | P.PN ---
Subjective Progress Note Date: 02/09/23 (delayed charting seen at 1040) Patient is a 42-year-old male with type 2 diabetes, hypertension, dyslipidemia, COPD, and hypothyroidism who presented to the ER with complaints of a facial droop, slurred speech, left-sided weakness. In the ER he underwent a CT of the head as well as a CTA head and neck which was unremarkable. Initial EKG revealed sinus rhythm. Laboratory analysis was remarkable for a glucose of 68. Neural interventional was contacted and patient underwent TPA and was admitted to the ICU. He did have improvement in his left upper and lower weakness. He then developed a headache that was 10 out of [address] a stat head CT was repeated which showed no acute changes. Patient began having pain in his left arm below the shoulder on 02/08 requiring treatment with IV morphine. Patient seen and examined at bedside. He initially denied any complaints. He denied headache. He was still having some left upper extremity weakness which was improved from admission but not back to baseline. Later in the afternoon he complained of left upper extremity bruising. Vital signs reviewed General: nontoxic, no distress, appears at stated age Term: Bruising with area of raised palpable on left deltoid Cardiovascular: S1S2 reg, no murmur, positive posterior tibial pulse bilateral, Lungs: CTA bilateral, no rhonchi, no rales , no accessory muscle use Abdominal: soft, nontender to palpation, no guarding, no appreciable organomegaly Ext: no gross muscle atrophy, no edema, no contractures Neuro: Left tongue deviation, no appreciable left upper extremity weakness noted Psych: Alert, oriented, appropriate affect Assessment: Probable acute ischemic CVA, left-sided weakness status post IV TPA Diabetes mellitus type 2 insulin requiring- A1C 6.4 Bruising left deltoid Dyslipidemia Hypertension History of seizure disorder Schizophrenia Panic attacks Tobacco dependency Imaging: Echo-ejection fraction 55-60%. No other significant modalities. Data Review: Vitals reviewed and highest blood pressure in the last 24 hours 165/90 Homocystine level normal at 12.6 -Blood sugars reviewed and maximal last 24 hours was 178 Plan: -Case discussed with neurology and patient will require MRI on 02/11 and should remain hospitalized until that time. Patient should have Plavix 75 mg as well as aspirin 81 mg which she is currently on. -Continue Lipitor 80 mg -Antithrombin III, factor V Leiden, lupus anticoagulate, protein C/protein/prothrombin and von Willebrand's factor pending -Continue with sliding scale insulin -Continue with low fibroid for hypertriglyceridemia -Continue with Lamictal and Briviact for seizure at home doses - Synthroid 50 g -Check left upper extremity ultrasound to eliminate significant hematoma or abscess -Given left palpable area will check CBC in a.m. DVT prophylaxis: Heparin Anticipated discharge date: 02/[address]: home This dictation was prepared using [employer] voice recognition software. Though every attempt is made to correct errors during during dictation some may still exist. Objective - Vital Signs Vital signs: Vital Signs Temp 97.8 F 02/09/23 15:09 Pulse 81 02/09/23 15:09 Resp 16 02/09/23 15:09 BP 130/81 02/09/23 15:09 Pulse Ox 95 02/09/23 15:09 FiO2 Intake & Output 02/08/23 02/09/23 02/09/23 18:59 06:59 18:59 Intake Total 318 1550 Output Total 0 Balance 318 1550 Intake: IV 200 Sodium Chloride 0.9% 1, 200 000 ml @ 100 mls/hr IV . Q10H [facility] Rx#:[id number] Oral 118 1550 Output: Urine 0 Other: Voiding Method Toilet Toilet Toilet # Voids 500 1 1 - Labs CBC & Chem 7: 02/07/23 02:17 02/07/23 02:17 Labs: Abnormal Lab Results - Last 24 Hours (Table) 02/08/23 02/09/23 02/09/23 Range/Units 19:53 00:38 06:11 POC Glucose (mg/dL) 178 H 127 H 152 H (70-110) mg/dL 02/09/23 02/09/23 Range/Units 11:17 16:26 POC Glucose (mg/dL) 174 H 176 H (70-110) mg/dL
--- NOTE | 2023-02-09 18:24 | US ---
EXAMINATION TYPE: US extremity nonvasc mass LT DATE OF EXAM: 02/09/2023 COMPARISON: NONE CLINICAL INDICATION: Male, 42 years old with history of palpable lesion concerns for abscess vs hemat berta; Palpable lesion with concern for abscess versus hematoma per order. Patient noticed this area th is morning. TECHNIQUE: Grayscale and sonographic images of the left upper arm at the patient's indicated area of palpable abnormality. FINDINGS: Scanned left lateral upper arm at patient's palpable area of redness and pain. There appears to be a well-defined hypoechoic area with some peripheral vascularity measurin.4 x 0.8 x 0.2 cm. IMPRESSION: In area of palpable abnormality is a 8 mm well-circumscribed fluid collection with peripheral vascula rity. Finding may represent small abscess in the appropriate clinical context.
[2023-02-09 19:47] LABS: Glucose,Whole Blood 154 mg/dL (70-110)
[2023-02-09] MEDS: ATORVASTATIN 80 MG TAB PO SCH (20:51)
[2023-02-09] MEDS: TAMSULOSIN 0.4 MG CAP.ER.24H PO SCH (20:57)
[2023-02-09 23:24] LABS: Von Willebrand Factor Antigen 92 % (52-214)
[2023-02-10 01:00] LABS: Glucose,Whole Blood 171 mg/dL (70-110)
[2023-02-10] MEDS: MORPHINE SULFATE 4 MG/ML SYRINGE IVP PRN ×6 (02:13→21:59)
[2023-02-10] MEDS: HEPARIN SODIUM,PORCINE/PF 5,000 UNIT/0.5 ML SYRINGE SQ SCH ×3 (02:13→15:04)
[2023-02-10 05:43] LABS: Glucose,Whole Blood 190 mg/dL (70-110)
[2023-02-10] MEDS: LEVOTHYROXINE 50 MCG TAB PO SCH (06:13)
[2023-02-10] MEDS: PANTOPRAZOLE 40 MG TABLET PO SCH (06:13)
[2023-02-10] MEDS: INSULIN ASPART (NovoLOG) 100 UNIT/ML VIAL SQ SCH ×4 (06:14→20:32)
[2023-02-10] MEDS: NON FORMULARY DRUG (Brivaracetam [Briviact] 50 MG Tablet) PO SCH ×2 (07:15→20:50)
[2023-02-10] MEDS: SERTRALINE 100 MG TAB PO SCH (07:23)
[2023-02-10] MEDS: GABAPENTIN 400 MG CAP PO SCH ×2 (07:23→20:47)
[2023-02-10] MEDS: lamoTRIgine 100 MG TAB PO SCH ×2 (07:23→20:47)
[2023-02-10] MEDS: ASPIRIN 81 MG PO SCH (07:23)
[2023-02-10] MEDS: ACETAMINOPHEN TAB 500 MG TAB PO PRN ×2 (07:23→13:15)
[2023-02-10] MEDS: OXcarbazepine 150 MG TAB PO SCH ×2 (07:23→20:47)
[2023-02-10] MEDS: CLOPIDOGREL 75 MG TAB PO SCH (07:23)
[2023-02-10] MEDS: FENOFIBRATE 160 MG TAB PO SCH (07:23)
[2023-02-10] MEDS: lamoTRIgine 25 MG TAB PO SCH ×2 (07:24→20:47)
[2023-02-10] MEDS: FLUTICASONE 110 MCG INHALER INHALATION SCH ×2 (09:14→22:22)
[2023-02-10 11:27] LABS: Glucose,Whole Blood 193 mg/dL (70-110)
[2023-02-10 11:29] LABS: HCT 46.1 % (39.0-53.0); HGB 15.9 gm/dL (13.0-17.5); MCH 31.3 pg (25.0-35.0); MCHC 34.6 g/dL (31.0-37.0); MCV 90.6 fL (80.0-100.0); Mean Platelet Volume 7.1; Platelet Count 198 k/uL (150-450); RBC 5.09 m/uL (4.30-5.90); RDW 13.1 % (11.5-15.5); WBC 10.7 k/uL (3.8-10.6)
[2023-02-10 11:47] LABS: African American GFR (CKD) >90 (>60 ml/min/1.73 sqM); Anion Gap 13 mmol/L; Blood Urea Nitrogen 9 mg/dL (9-20); Calcium 10.3 mg/dL (8.4-10.2); Carbon Dioxide 25 mmol/L (22-30); Chloride 96 mmol/L (98-107); Glucose 203 mg/dL (74-99); Non-African American GFR(CKD) >90 (>60 ml/min/1.73 sqM); Potassium 4.7 mmol/L (3.5-5.1); Sodium 134 mmol/L (137-145)
--- NOTE | 2023-02-10 11:59 | P.PN ---
Subjective Progress Note Date: 02/10/23 Principal diagnosis: CVA. Pulmonary consult dated 02/07/2023. This is a 42-year-old male, with multiple medical problems including chronic tobacco use, COPD, hypertension, hyperlipidemia, seizure disorder, diabetes, and bipolar disorder. The patient was seen in the emergency department, at sometime after 1:00, closer to 2 AM, with complaints of slurred speech, left-sided wea kness, and left facial droop. He apparently went to bed at 10:30, without any complaints. He apparently woke up at about 1:00 in the morning, and did not have the ability to move his left side. Patient was evaluated for CVA, and I did speak to the ER physician last night. The patient did receive TPA, about 1- 1/2 hours after symptoms began. His initial NIH score was 10. Computed tomography scan of the brain was negative. Currently he is on room air. Is getting saline at 100 mL an hour. White count 9.7, hemoglobin 16.6, hematocrit 47.5, with a normal platelet count. Coagulation studies are normal. Sodium 145, potassium 3.9, chlorides 104, CO2 29, anion gap 12, BUN 5, creatinine 0.94. The rest of the comprehensive metabolic profile is normal. Brain CT showed nothing acute. CT angiogram of the neck, was negative. The patient is currently resting comfortably in the intensive care unit, room 266. He still has a left facial droop, and, he does have weakness to the left side of his body, left upper extremity, greater than left lower extremity. Progress note dated 02/08/2023. 42-year-old male seen yesterday in consultation for a right CVA with left-sided the patient presented to the emergency department, with an NIH score of 10. He received TPA within 1-1/2 hours of symptoms beginning. Today, he is resting comfortably in the ICU, room 266. 2 L of oxygen. No IV. His left facial droop is much improved. His left upper extremity strength and movement is much improv ed as well. No new labs today other than a glucose of 131. Repeat brain CT today, showed no acute findings. Progress note dated 02/09/2023. 42-year-old male who was seen in the intensive care unit yesterday, for right- sided CVA, with left-sided facial droop and left-sided weakness, left upper ex tremity greater than left lower extremity. The patient did receive TPA, within 1-1/2 hours of being admitted to the emergency department. Currently, he is seen today in room 362. He's on room air. He's not receiving any IV fluids. His left upper extremity strength is improved, and left facial droop is barely noticeable. Labs today include a glucose of 152. Progress note dated 02/10/2023. 42-year-old male seen today in room 362. He was initially admitted with a diagnosis of right-sided CVA, with left-sided weakness, including left facial droop, and left upper extremity weakness, greater than left lower extremity weakness. He did receive TPA, he is doing much better. He is about 75% back to normal. The patient does complain of some pain and left shoulder and left upper arm area. Currently, the patient is on room air. He's not receiving any IV fluids white count is 10.7, hemoglobin 15.9, hematocrit 46.1, and platelet count 198,000. Sodium 134, potassium 4.7, chlorides 96, CO2 25, anion gap 13, BUN 9, and creatinine 0.77. Calcium is 10.3. Objective - Vital Signs Vital signs: Vital Signs Temp 98.0 F 02/10/23 07:19 Pulse 85 02/10/23 11:00 Resp 16 02/10/23 11:00 BP 130/75 02/10/23 11:00 Pulse Ox 96 02/10/23 11:00 FiO2 Intake & Output 02/09/23 02/10/23 02/10/23 18:59 06:59 18:59 Intake Total 1550 540 Balance 1550 540 Intake: Oral 1550 540 Other: Voiding Method Toilet Toilet Toilet # Voids 1 1 2 - Exam No acute distress, oriented 3. Currently on room air. HEENT examination is grossly unremarkable. Left facial droop, which is improved. Neck supple. Full range of motion. No adenopathy thyromegaly or neck vein distention. Cardiovascular examination reveals regular rhythm rate. S1-S2 normal. No S3 or S4. No discernible murmur noted. Heart rate 85 bpm. Lungs reveal mostly clear breath sounds. Minimal rhonchi. Crackles. Room air saturation is 97%. Abdomen soft bowel sounds are heard. No masses or tenderness. Extremities are intact. No cyanosis clubbing or edema. Skin is without rash or lesion. Neurologic examination reveals a well-developed male, with a left facial droop, and weakness of the left upper extremity greater than the left lower extremity. The left-sided weakness is much improved, and involves more his left upper extremity than his left lower extremity. - Labs CBC & Chem 7: 02/10/23 10:57 02/10/23 10:57 Labs: Abnormal Lab Results - Last 24 Hours (Table) 02/09/23 02/09/23 02/10/23 Range/Units 16:26 19:45 00:58 WBC (3.8-10.6) k/uL Sodium (137-145) mmol/L Chloride (98-107) mmol/L Glucose (74-99) mg/dL POC Glucose (mg/dL) 176 H 154 H 171 H (70-110) mg/dL Calcium (8.4-10.2) mg/dL 02/10/23 02/10/23 02/10/23 Range/Units 05:41 10:57 10:57 WBC 10.7 H (3.8-10.6) k/uL Sodium 134 L (137-145) mmol/L Chloride 96 L (98-107) mmol/L Glucose 203 H (74-99) mg/dL POC Glucose (mg/dL) 190 H (70-110) mg/dL Calcium 10.3 H (8.4-10.2) mg/dL 02/10/23 Range/Units 11:26 WBC (3.8-10.6) k/uL Sodium (137-145) mmol/L Chloride (98-107) mmol/L Glucose (74-99) mg/dL POC Glucose (mg/dL) 193 H (70-110) mg/dL Calcium (8.4-10.2) mg/dL Assessment and Plan Assessment: Acute right-sided CVA, with left sided findings, including left facial droop, and left upper extremity weakness greater than left lower extremity weakness. The patient did receive TPA, within 1-1/2 hours of symptoms beginning. History of ongoing tobacco use, with nicotine addiction, and underlying COPD. History of hypertension. History of hyperlipidemia. History of seizure disorder. History of diabetes mellitus. History of bipolar disorder. Vague history of asthma. Plan: Plan dated 02/07/2023. The patient appears be doing better. He still has significant left upper extremity weakness, and a left facial droop. Nonetheless, the patient does feel better. His left lower extremity moves reasonably well. The patient is resting comfortably in the intensive care unit. He is on room air. He's getting saline at 100 mL an hour. He received the TPA within 1-1/2 hours of symptom onset. Labs, x-rays, and medications are reviewed. Prognosis is certainly guarded. The patient is counseled about the importance of never smoking ever again. Plan dated 02/08/2023. The patient appears to be doing much better. His left facial droop is much improved. Likewise, the strength in the left upper extremity is much improved. The patient had an uneventful night. He continues on oxygen at 2 L. He likely does have some underlying COPD. The patient could be transferred out to the [facility]. Labs, x-rays, medications are all reviewed. Prognosis is guarded. Computed tomography scan of the brain today, showed no acute abnormalities. Plan dated 02/09/2023. The patient is doing much better. The patient is not receiving any IV fluids or supplemental oxygen. The patient's left facial droop was barely noticeable. Left-sided weakness, is much improved. Labs, x-rays, and medications are reviewed. Prognosis is guarded. We will continue to follow the patient and make recommendations along the way. Plan dated 02/10/2023. The patient is seen today in room 362. He is resting comfortably. He's had significant improvement in his left facial droop, as well as his strength in his upper extremity. The patient is feeling much improved. Labs, x-rays, and medications are reviewed. We will continue to follow. Prognosis is guarded. No additional recommendations are made at this time. Time with Patient: Less than 30
--- NOTE | 2023-02-10 14:22 | P.PN ---
Subjective Progress Note Date: 02/10/23 (delayed charting seen at 1030) Patient is a 42-year-old male with type 2 diabetes, hypertension, dyslipidemia, COPD, and hypothyroidism who presented to the ER with complaints of a facial droop, slurred speech, left-sided weakness. In the ER he underwent a CT of the head as well as a CTA head and neck which was unremarkable. Initial EKG revealed sinus rhythm. Laboratory analysis was remarkable for a glucose of 68. Neural interventional was contacted and patient underwent TPA and was admitted to the ICU. He did have improvement in his left upper and lower weakness. He then developed a headache that was 10 out of [address] a stat head CT was repeated which showed no acute changes. Patient began having pain in his left arm below the shoulder on 02/08 requiring treatment with IV morphine. Echo-ejection fraction 55-60%. No other significant modalities. Patient seen and examined at bedside. He has no complaints today other than his left shoulder. Denies any nausea or vomiting. Asking for his trazodone for sleep. Patient states he is still taking 70/30 insulin. Vital signs reviewed General: nontoxic, no distress, appears at stated age Derm: Bruising with area of raised palpable on left deltoid Cardiovascular: S1S2 reg, no murmur, positive posterior tibial pulse bilateral, Lungs: CTA bilateral, no rhonchi, no rales , no accessory muscle use Abdominal: soft, nontender to palpation, no guarding, no appreciable organomegaly Ext: no gross muscle atrophy, no edema, no contractures Neuro: Left tongue deviation, no appreciable left upper extremity weakness noted Psych: Alert, oriented, appropriate affect Assessment: Probable acute ischemic CVA, left-sided weakness status post IV TPA Diabetes mellitus type 2 insulin requiring- A1C 6.4 left arm abscess Bruising left deltoid Dyslipidemia Hypertension History of seizure disorder Schizophrenia Panic attacks Tobacco dependency Imaging: Summary ultrasound shows an 8 mm well circumcised fluid collection with peripheral vascularity possible small abscess Data Review: Vital signs reviewed temperature 90.8, pulse 68, respirations 18, blood pressure 133/67, O2 sat 94% on room air Labs reviewed and remarkable for white blood cell count 10.7, calcium 10.3, sodium 134, potassium 4.7, chloride 96 Blood sugars reviewed a.m. fasting 190, last evening 171 Plan: -Await further neurology recs - Stat Bactrim DS BID X 7 days for possible abscess - MRI brain 02/11/23 - Plavix 75 mg as well as aspirin 81 mg -Continue Lipitor 80 mg -Antithrombin III, factor V Leiden, lupus anticoagulate, protein C/protein/prothrombin 72472 and von Willebrand's factor pending -Continue with sliding scale insulin, patient is on 70/30 at home -Continue with low fibroid for hypertriglyceridemia -Continue with Lamictal and Briviact for seizure at home doses - Synthroid 50 g - given increasing WBC and abscess will repeat CBC in AM -Pulmonary note reviewed: No new recommendations. DVT prophylaxis: Heparin Anticipated discharge date: 02/[address]: home This dictation was prepared using [employer] voice recognition software. Though every attempt is made to correct errors during during dictation some may still exist. Objective - Vital Signs Vital signs: Vital Signs Temp 98.0 F 02/10/23 07:19 Pulse 85 02/10/23 13:04 Resp 16 02/10/23 11:00 BP 130/75 02/10/23 11:00 Pulse Ox 96 02/10/23 11:00 FiO2 Intake & Output 02/09/23 02/10/23 02/10/23 18:59 06:59 18:59 Intake Total 1550 540 Balance 1550 540 Intake: Oral 1550 540 Other: Voiding Method Toilet Toilet Toilet # Voids 1 1 2 - Labs CBC & Chem 7: 02/10/23 10:57 02/10/23 10:57 Labs: Abnormal Lab Results - Last 24 Hours (Table) 02/09/23 02/09/23 02/10/23 Range/Units 16:26 19:45 00:58 WBC (3.8-10.6) k/uL Sodium (137-145) mmol/L Chloride (98-107) mmol/L Glucose (74-99) mg/dL POC Glucose (mg/dL) 176 H 154 H 171 H (70-110) mg/dL Calcium (8.4-10.2) mg/dL 02/10/23 02/10/23 02/10/23 Range/Units 05:41 10:57 10:57 WBC 10.7 H (3.8-10.6) k/uL Sodium 134 L (137-145) mmol/L Chloride 96 L (98-107) mmol/L Glucose 203 H (74-99) mg/dL POC Glucose (mg/dL) 190 H (70-110) mg/dL Calcium 10.3 H (8.4-10.2) mg/dL 02/10/23 Range/Units 11:26 WBC (3.8-10.6) k/uL Sodium (137-145) mmol/L Chloride (98-107) mmol/L Glucose (74-99) mg/dL POC Glucose (mg/dL) 193 H (70-110) mg/dL Calcium (8.4-10.2) mg/dL
[2023-02-10 16:21] LABS: Glucose,Whole Blood 192 mg/dL (70-110)
[2023-02-10 20:06] LABS: Glucose,Whole Blood 137 mg/dL (70-110)
[2023-02-10] MEDS: SULFAMETHOX-TMP 800-160MG 1 EACH TAB PO SCH (20:47)
[2023-02-10] MEDS: TAMSULOSIN 0.4 MG CAP.ER.24H PO SCH (20:47)
[2023-02-10] MEDS: ATORVASTATIN 80 MG TAB PO SCH (20:48)
[2023-02-10] MEDS ORDERED: traZODone HCL 50 MG TAB PO SCH (21:00)
[2023-02-11] MEDS: HEPARIN SODIUM,PORCINE/PF 5,000 UNIT/0.5 ML SYRINGE SQ SCH ×3 (01:18→16:01)
[2023-02-11] MEDS: MORPHINE SULFATE 4 MG/ML SYRINGE IVP PRN ×4 (02:26→15:57)
[2023-02-11 06:03] LABS: Glucose,Whole Blood 157 mg/dL (70-110)
[2023-02-11] MEDS: INSULIN ASPART (NovoLOG) 100 UNIT/ML VIAL SQ SCH ×3 (07:01→16:45)
[2023-02-11] MEDS: LEVOTHYROXINE 50 MCG TAB PO SCH (07:01)
[2023-02-11] MEDS: PANTOPRAZOLE 40 MG TABLET PO SCH (07:05)
[2023-02-11 08:50] LABS: HCT 45.8 % (39.0-53.0); HGB 15.8 gm/dL (13.0-17.5); MCH 31.3 pg (25.0-35.0); MCHC 34.5 g/dL (31.0-37.0); MCV 90.7 fL (80.0-100.0); Mean Platelet Volume 7.3; Platelet Count 178 k/uL (150-450); RBC 5.06 m/uL (4.30-5.90); RDW 13.1 % (11.5-15.5)
[2023-02-11] MEDS: SULFAMETHOX-TMP 800-160MG 1 EACH TAB PO SCH (09:08)
[2023-02-11] MEDS: lamoTRIgine 100 MG TAB PO SCH (09:09)
[2023-02-11] MEDS: CLOPIDOGREL 75 MG TAB PO SCH (09:10)
[2023-02-11] MEDS: ASPIRIN 81 MG PO SCH (09:10)
[2023-02-11] MEDS: lamoTRIgine 25 MG TAB PO SCH (09:10)
[2023-02-11] MEDS: GABAPENTIN 400 MG CAP PO SCH (09:10)
[2023-02-11] MEDS: FENOFIBRATE 160 MG TAB PO SCH (09:11)
[2023-02-11] MEDS: SERTRALINE 100 MG TAB PO SCH (09:11)
[2023-02-11] MEDS: OXcarbazepine 150 MG TAB PO SCH (09:11)
[2023-02-11] MEDS: FLUTICASONE 110 MCG INHALER INHALATION SCH (09:18)
[2023-02-11] MEDS: NON FORMULARY DRUG (Brivaracetam [Briviact] 50 MG Tablet) PO SCH (11:27)
[2023-02-11 11:34] LABS: Glucose,Whole Blood 158 mg/dL (70-110)
[2023-02-11 11:40] LABS: Anti-Thrombin III Antigen 86 % (80 - 120); Protein S Antigen 71 % (50 - 140)
--- NOTE | 2023-02-11 12:00 | P.PN ---
Subjective Progress Note Date: 02/11/23 This is a 42-year-old male, with multiple medical problems including chronic tobacco use, COPD, hypertension, hyperlipidemia, seizure disorder, diabetes, and bipolar disorder. The patient was seen in the emergency department, at sometime after 1:00, closer to 2 AM, with complaints of slurred speech, left-sided weakness, and left facial droop. He apparently went to bed at 10:30, without any complaints. He apparently woke up at about 1:00 in the morning, and did not have the ability to move his left side. Patient was evaluated for CVA, and I did speak to the ER physician last night. The patient did receive TPA, about 1- 1/2 hours after symptoms began. His initial NIH score was 10. On today's evaluation of 02/11/2023, the patient reports no new symptoms. He continues to have some weakness in his left upper extremity. No new onset neurological deficits. The patient right-sided CVA with left-sided weakness and left facial droop. He is able to swallow. He received note that his blood work showed a triglyceride level of 674. His LDL cholesterol was not measured and the total cholesterol was 148. His CTA of his brain was negative and a CT of the head showed no evidence of any acute ischemic infarct. The post TPA CAT scan of the brain also showed no evidence of any bleed or infarct. The patient is going to have a mild the brain. Echo cardiac rhythm for the presumptive LV f unction. No valvular abnormalities and the cardiac rhythm is still sinus. His comorbid conditions include hypertension, hyperlipidemia, diabetes mellitus type 2, previous history of schizophrenia and chronic anxiety/panic disorder. He is hemodynamically stable at this point in time. Blood work from today shows a WBC count of 9 with a hemoglobin 15.8 and a platelet count of 178. Objective - Vital Signs Vital signs: Vital Signs Temp 96.9 F L 02/11/23 08:00 Pulse 68 02/11/23 08:00 Resp 17 02/11/23 08:00 BP 113/68 02/11/23 08:00 Pulse Ox 94 L 02/11/23 08:00 FiO2 Intake & Output 02/10/23 02/11/23 02/11/23 18:59 06:59 18:59 Intake Total 1020 540 180 Balance 1020 540 180 Intake: Oral 1020 540 180 Other: Voiding Method Toilet Toilet # Voids 2 2 - Exam No acute distress, oriented 3. Currently on room air. HEENT examination is grossly unremarkable. Left facial droop, which is improved. Neck supple. Full range of motion. No adenopathy thyromegaly or neck vein distention. Cardiovascular examination reveals regular rhythm rate. S1-S2 normal. No S3 or S4. No discernible murmur noted. Heart rate 85 bpm. Lungs reveal mostly clear breath sounds. Minimal rhonchi. Crackles. Room air saturation is 97%. Abdomen soft bowel sounds are heard. No masses or tenderness. Extremities are intact. No cyanosis clubbing or edema. Skin is without rash or lesion. Neurologic examination reveals a well-developed male, with a left facial droop, and weakness of the left upper extremity greater than the left lower extremity. The left-sided weakness is much improved, and involves more his left upper e xtremity than his left lower extremity. - Labs CBC & Chem 7: 02/11/23 08:22 02/10/23 10:57 Labs: Abnormal Lab Results - Last 24 Hours (Table) 02/10/23 02/10/23 02/10/23 Range/Units 10:57 10:57 11:26 WBC 10.7 H (3.8-10.6) k/uL Sodium 134 L (137-145) mmol/L Chloride 96 L (98-107) mmol/L Glucose 203 H (74-99) mg/dL POC Glucose (mg/dL) 193 H (70-110) mg/dL Calcium 10.3 H (8.4-10.2) mg/dL 02/10/23 02/10/23 02/11/23 Range/Units 16:20 20:03 05:46 WBC (3.8-10.6) k/uL Sodium (137-145) mmol/L Chloride (98-107) mmol/L Glucose (74-99) mg/dL POC Glucose (mg/dL) 192 H 137 H 157 H (70-110) mg/dL Calcium (8.4-10.2) mg/dL Assessment and Plan Plan: Acute right-sided CVA, with left sided findings, including left facial droop, and left upper extremity weakness greater than left lower extremity weakness. The patient did receive TPA, within 1-1/2 hours of symptoms beginning.CT of the head was negative. I personally reviewed the CT and I agree there is no acute subacute ischemia there is no bleed. CT angiography of the head and neck was also neSole was felt the patient was a TPA candidate since he was within the window. CT head 24 hour post-IV TPA was reported as no acute finding in the head or/brain 2-D echo was reported as normal left ventricle systolic function. Normal right ventricular size and systolic function. History of ongoing tobacco use, with nicotine addiction, and underlying COPD. History of hypertension. History of hyperlipidemia. History of seizure disorder. History of diabetes mellitus. History of bipolar disorder. Vague history of asthma. Plan: Clinically stable and there is no new onset focal neurological deficits Continue same management Continue aspirin and Plavix MRI of the brain All medications have been resumed Patient is currently on a medical floor Neurology is also on the case
[2023-02-11 12:51] LABS: APTT 48 Sec(s) (<43); APTT 1:1 Mix 39 Sec(s) (<43); DRVVT 1:1 Mix 42 Sec(s) (<44); Dilute Russell Viper Venom 53 Sec(s) (<44)
[2023-02-11 14:09] LABS: Prothrombin 20210A Mutation Negative
--- NOTE | 2023-02-11 15:44 | MR ---
EXAMINATION TYPE: MR brain wo con DATE OF EXAM: 02/11/2023 3:20 PM COMPARISON: 02/08/2023. CLINICAL INDICATION:Male, 42 years old with history of stroke. left sided weakness; Stroke, left charmaine ed weakness TECHNIQUE: Multi planar, multi sequence imaging was performed through the brain including: T1, T2, In version recovery, Diffusion weighted imaging, and gradient echo imaging. No gadolinium was given. FINDINGS: The darby-white junctions, ventricular system, and cisterns appear unremarkable. . Midline structures show no abnormality. Diffusion-weighted imaging shows no evidence of restricted diffusion. The suscep tibility weighted images do not reveal any evidence for micro-hemorrhage. Left choroidal fissure cyst . The bone marrow signal is within normal limits. Paranasal sinuses and mastoid air cells: No significant paranasal sinus disease. Visualized orbits: Orbital contents are intact. IMPRESSION: No evidence of intracranial mass or acute/subacute infarct.
[2023-02-11 16:07] VITALS: BP 132/86; PULSE 81; RESP 18; TEMP 98.4
[2023-02-11 16:19] LABS: Glucose,Whole Blood 190 mg/dL (70-110)
--- NOTE | 2023-02-11 17:49 | P.DS ---
Providers Date of admission: 02/07/23 03:11 Expected date of discharge: 02/11/23 Attending physician: Oc Velazquez MD Consults: 02/07/23 03:11 Consult Physician Urgent Consulting Provider: Reynold Nye Consult Reason/Comments: ICU CVA Do you want consulting provider notified?: Already Contacted Consult Physician Urgent Consulting Provider: Jt Nye Consult Reason/Comments: CVA Do you want consulting provider notified?: Already Contacted Primary care physician: Ju Alfaro [facility] Hospital Course: Discharge Diagnosis: Acute right-sided CVA with left-sided findings Diabetes mellitus type 2 insulin requiring- A1C 6.4 left arm abscess vs hematoma Bruising left deltoid Dyslipidemia Hypertension History of seizure disorder Schizophrenia Panic attacks Tobacco dependency Hospital Course: Patient is a 42-year-old male with type 2 diabetes, hypertension, dyslipidemia, COPD, and hypothyroidism who presented to the ER with complaints of a facial droop, slurred speech, left-sided weakness. In the ER he underwent a CT of the head as well as a CTA head and neck which was unremarkable. Initial EKG revealed sinus rhythm. Laboratory analysis was remarkable for a glucose of 68. Neural interventional was contacted and patient underwent TPA and was admitted to the ICU. He did have improvement in his left upper and lower weakness. He then developed a headache that was 10 out of 10 and a stat head CT was repeated which showed no acute changes. Patient began having pain in his left arm below the shoulder on 02/08 requiring treatment with IV morphine. Echo-ejection fraction 55-60%. No other significant modalities. He developed a lesion on the left arm which on ultrasound was consistent with hematoma vs abscess. His MRI came back without acute/subacute CVA. He was doing well and was determined stable for discharge home. Imaging: CT of the head on admission: no acute intracranail process CT angiography of the head and neck was also negative CT head 24 hour post-IV TPA was reported as no acute finding in the head or/brain 2-D echo was reported as normal left ventricle systolic function. Normal right ventricular size and systolic function. MRI Brain: No evidence of intracranial mass, acute/subacute CVA Lupus anticoagulant testing was negative, Factor V Leiden mutation negative, Von Willebrand factor antigen negative Protein CSF percent negative, antithrombin III antigen negative Penidng on dishcarge: Anti-thrombin 3 activity, factor V Leiden, protein C antigen and activity, protein S activity Follow-up: Dr. Bacilio iWtt in 2-4 weeks, complete a five-day course of Bactrim for possible arm abscess, Plavix 75 mg for the next 30 days, increase Lipitor to 80 mg. Remainder of medications are unchanged Patient seen and examined at bedside. Doing well, arm feeling better wants to go home. Vital signs reviewed and stable. General: [nontoxic], [no distress], [appears at stated age] Derm: [warm], [dry] Cardiovascular: [S1S2 reg], [no murmur], [positive posterior tibial pulse bilateral], Lungs: [CTA bilateral], [no rhonchi, no rales] , [no accessory muscle use] Abdominal: [soft], [ nontender to palpation], [no guarding], [no appreciable organomegaly] Ext: [no gross muscle atrophy], [no edema], [no contractures] Neuro: [ CN II-XI grossly intact], [no focal neuro deficits] Psych: [Alert], [oriented], [appropriate affect] A total of [35] minutes of time were spent preparing this complex discharge summary. Patient was discharged on [02/11/23]. This dictation was prepared using [employer] voice recognition software. Though every attempt is made to correct errors during during dictation some may still exist. Patient Condition at Discharge: Stable Plan - Discharge Summary Discharge Rx Participant: Yes New Discharge Prescriptions: New Atorvastatin [Lipitor] 80 mg PO HS #30 tab Sulfamethox-Tmp 800-160Mg [Bactrim DS 800-160 mg] 1 each PO BID #8 tab Clopidogrel [Plavix] 75 mg PO DAILY #30 tab Continue Haloperidol Decanoate [Haldol D] 150 mg IM Q21D Sertraline [Zoloft] 100 mg PO DAILY lisinopriL 20 mg PO HS Levothyroxine Sodium [Synthroid] 50 mcg PO DAILY Aspirin [Adult Low Dose Aspirin EC] 81 mg PO DAILY metFORMIN HCL [Glucophage] 1,000 mg PO BID lamoTRIgine [LaMICtal] 200 mg PO BID Brivaracetam [Briviact] 50 mg PO BID OXcarbazepine [Trileptal] 150 mg PO BID lamoTRIgine [LaMICtal] 75 mg PO BID Docusate Sodium [Dok] 100 mg PO DAILY PRN PRN Reason: Constipation traZODone HCL 150 mg PO HS Fluticasone Propionate [Flovent Hfa 220 mcg] 2 puff INHALATION RT-BID sitaGLIPtin [Januvia] 100 mg PO DAILY Tamsulosin HCl [Flomax] 0.4 mg PO HS Gabapentin [Neurontin] 400 mg PO BID rOPINIRole HCL [Requip] 0.25 mg PO TID Pantoprazole Sodium [Protonix] 40 mg PO DAILY Glimepiride [Amaryl] 2 mg PO DAILY Fenofibrate [Lofibra] 160 mg PO DAILY Famotidine [Pepcid] 40 mg PO BID Ferrous Sulfate [Iron (65 MG Elemental)] 325 mg PO DAILY Loperamide [Imodium] 4 mg PO BID PRN PRN Reason: Diarrhea Albuterol Sulfate [Albuterol Sulfate Hfa] 1 puff PO RT-Q4H PRN PRN Reason: Pain tiZANidine [Zanaflex] 4 mg PO TID PRN PRN Reason: Pain Propranolol [Inderal] 10 mg PO BID tiZANidine [Zanaflex] 2 mg PO TID PRN PRN Reason: Pain Insulin NPH Hum/Reg Insulin Hm [humuLIN 70/30 Kwikpen] 33 unit SQ W/BRKFST Insulin NPH Hum/Reg Insulin Hm [humuLIN 70/30 Kwikpen] 18 unit SQ W/SUPPER Discontinued Atorvastatin [Lipitor] 40 mg PO HS Discharge Medication List Haloperidol Decanoate [Haldol D] 150 mg IM Q21D 07/31/14 [History] Aspirin [Adult Low Dose Aspirin EC] 81 mg PO DAILY 12/07/19 [History] Brivaracetam [Briviact] 50 mg PO BID 12/07/19 [History] Levothyroxine Sodium [Synthroid] 50 mcg PO DAILY 12/07/19 [History] Sertraline [Zoloft] 100 mg PO DAILY 12/07/19 [History] lamoTRIgine [LaMICtal] 200 mg PO BID 12/07/19 [History] lisinopriL 20 mg PO HS 12/07/19 [History] metFORMIN HCL [Glucophage] 1,000 mg PO BID 12/07/19 [History] Albuterol Sulfate [Albuterol Sulfate Hfa] 1 puff PO RT-Q4H PRN 02/07/23 [History] Docusate Sodium [Dok] 100 mg PO DAILY PRN 02/07/23 [History] Famotidine [Pepcid] 40 mg PO BID 02/07/23 [History] Fenofibrate [Lofibra] 160 mg PO DAILY 02/07/23 [History] Ferrous Sulfate [Iron (65 MG Elemental)] 325 mg PO DAILY 02/07/23 [History] Fluticasone Propionate [Flovent Hfa 220 mcg] 2 puff INHALATION RT-BID 02/07/23 [History] Gabapentin [Neurontin] 400 mg PO BID 02/07/23 [History] Glimepiride [Amaryl] 2 mg PO DAILY 02/07/23 [History] Insulin NPH Hum/Reg Insulin Hm [humuLIN 70/30 Kwikpen] 18 unit SQ W/SUPPER 02/07/23 [History] Insulin NPH Hum/Reg Insulin Hm [humuLIN 70/30 Kwikpen] 33 unit SQ W/BRKFST 02/07/23 [History] Loperamide [Imodium] 4 mg PO BID PRN 02/07/23 [History] OXcarbazepine [Trileptal] 150 mg PO BID 02/07/23 [History] Pantoprazole Sodium [Protonix] 40 mg PO DAILY 02/07/23 [History] Propranolol [Inderal] 10 mg PO BID 02/07/23 [History] Tamsulosin HCl [Flomax] 0.4 mg PO HS 02/07/23 [History] lamoTRIgine [LaMICtal] 75 mg PO BID 02/07/23 [History] rOPINIRole HCL [Requip] 0.25 mg PO TID 02/07/23 [History] sitaGLIPtin [Januvia] 100 mg PO DAILY 02/07/23 [History] tiZANidine [Zanaflex] 2 mg PO TID PRN 02/07/23 [History] tiZANidine [Zanaflex] 4 mg PO TID PRN 02/07/23 [History] traZODone HCL 150 mg PO HS 02/07/23 [History] Atorvastatin [Lipitor] 80 mg PO HS #30 tab 02/11/23 [Rx] Clopidogrel [Plavix] 75 mg PO DAILY #30 tab 02/11/23 [Rx] Sulfamethox-Tmp 800-160Mg [Bactrim DS 800-160 mg] 1 each PO BID #8 tab 02/11/23 [Rx] Follow up Appointment(s)/Referral(s): Ju Alfaro FNPBC [Primary Care Provider] - 1-2 days Niesha Grullon MD [REFERRING] - 1 Week Activity/Diet/Wound Care/Special Instructions: Activity: As tolerated Diet: carb consistent, heart healthy Special Instructions: Resume prior home medications with the following changes: Plavix 75 mg daily Bactrim twice daily for 4 days (for your arm) Lipitor increased to 80 mg daily Continue to check blood sugars regularly and 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
[2023-02-12 10:30] LABS: Anti-Thrombin III Activity 77 % (79-109)
[2023-02-14 12:49] LABS: Protein C Antigen 97 % (72-160)
== END 2023-02-11 18:18 | disposition home or self-care (01) | DRG 45 ==
LOC: EC 01:57 → 2SICU 03:11 → 3SCARD 02-08 13:05
PROVIDERS: ADMIT Internal Medicine; ATTEND Internal Medicine
DX: I63.89 Other cerebral infarction (principal); G81.94 Hemiplegia, unspecified affecting left nondominant side; R29.810 Facial weakness; R47.81 Slurred speech; I10 Essential (primary) hypertension; F17.210 Nicotine dependence, cigarettes, uncomplicated; R29.710 NIHSS score 10; E03.9 Hypothyroidism, unspecified; E11.9 Type 2 diabetes mellitus without complications; E78.5 Hyperlipidemia, unspecified; F20.9 Schizophrenia, unspecified; F41.0 Panic disorder [episodic paroxysmal anxiety]; G40.909 Epilepsy, unspecified, not intractable, without status epilepticus; J44.9 Chronic obstructive pulmonary disease, unspecified; L02.414 Cutaneous abscess of left upper limb; L30.9 Dermatitis, unspecified; K21.9 Gastro-esophageal reflux disease without esophagitis; L40.9 Psoriasis, unspecified; E66.9 Obesity, unspecified; F15.23 Other stimulant dependence with withdrawal; S40.012A Contusion of left shoulder, initial encounter; Z68.30 Body mass index [BMI] 30.0-30.9, adult; Z79.4 Long term (current) use of insulin; Z90.79 Acquired absence of other genital organ(s); Z28.21 Immunization not carried out because of patient refusal; Z71.6 Tobacco abuse counseling; Z86.14 Personal history of Methicillin resistant Staphylococcus aureus infection; Z79.84 Long term (current) use of oral hypoglycemic drugs; Z79.890 Hormone replacement therapy; Z79.82 Long term (current) use of aspirin; Z79.899 Other long term (current) drug therapy; Z88.5 Allergy status to narcotic agent; Z88.8 Allergy status to other drugs, medicaments and biological substances
CPT/HCPCS: 36415; 37195; 70450; 70496; 70498; 70551; 71046; 80048; 80053; 80061; 81240; 81241; 82550; 83036; 83090; 83721; 84484; 85025; 85027; 85246; 85300; 85301; 85302; 85303; 85305; 85306; 85610; 85613; 85652; 85730; 86038; 87040; 93005; 93306; 94640; 94760; 96361; 96374; 96375; 99291

== ENCOUNTER → 2023-04-16 | Outpatient (CLI) | payer OTHER ==
[2023-04-16 16:44] LABS: Basophils # (A) 0.04 X 10*3/uL (0.00-0.10); Basophils % (A) 0.5 %; Eosinophils # (A) 0.44 X 10*3/uL (0.04-0.35); HCT 42.3 % (39.6-50.0); HGB 14.1 d/dL (13.0-17.0); Lymphocytes # (A) 1.38 X 10*3/uL (0.90-5.00); Lymphocytes % (A) 15.8 %; MCH 30.5 pg (27.0-32.0); MCHC 33.3 d/dL (32.0-37.0); MCV 91.6 FL (80.0-97.0); Mean Platelet Volume 9.8 FL (9.5-12.2); Monocytes # (A) 0.57 X 10*3/uL (0.20-1.00); Monocytes % (A) 6.5 %; NRBC Per 100 WBC 0 X 10*3/uL (0.00-0.01); Neutrophils # (A) 6.22 X 10*3/uL (1.80-7.70); Neutrophils % (A) 71.4 %; Platelet Count 171 X 10*3/uL (140-440); RBC 4.62 X 10*6/uL (4.40-5.60); RDW 13.7 % (11.5-14.5); WBC 8.72 X 10*3/uL (4.50-10.00)
[2023-04-16 17:01] LABS: BUN/Creat Ratio 8.44 Ratio (12.00-20.00); Blood Urea Nitrogen 7.6 mg/dL (9.0-27.0); Calcium 9.6 mg/dL (8.7-10.3); Carbon Dioxide 27.1 mmol/L (21.6-31.8); Chloride 104 mmol/L (96-109); Glucose 107 mg/dL (70-110); Potassium 4.3 mmol/L (3.5-5.5); Sodium 141 mmol/L (135-145)
[2023-04-16 17:18] LABS: Appearance,Urine Clear (Clear); Bilirubin,Urine Negative (Negative); Blood,Urine Trace (Negative); Color,Urine Yellow (Yellow); Ketones,Urine Negative (Negative); Nitrite,Urine Negative (Negative); PH, Urine 5.5; Specific Gravity,Urine 1.019 (1.001-1.030)
[2023-04-16 17:20] LABS: INR 0.93 sec (0.93-1.11); Prothrombin Time 10.5 sec (9.9-11.9)
[2023-04-16 17:23] LABS: Bacteria,Urine None Seen (None Seen)
== END | disposition home or self-care (01) ==
LOC: LABWHC1 12:25
PROVIDERS: ATTEND Nurse Practitioner
DX: Z01.812 Encounter for preprocedural laboratory examination (principal)
CPT/HCPCS: 36415; 80048; 81001; 85025; 85610

== ENCOUNTER → 2023-05-22 | Outpatient (CLI) | payer OTHER ==
[2023-05-22 11:55] VITALS: BP 112/75; PULSE 69; RESP 16
--- NOTE | 2023-05-22 13:25 | P.PAINPG ---
PQRS Measure Charge Sheet Comment: HISTORY OF PRESENT ILLNESS: 43 yr old male as a referral from Dr Grullon presents today w severe and chronic LBP x 2 yrs secondary to DDD, spndylosis and facet arthropathy without myelopathy for evaluation. Pt states pain level is provoked at 9 /10 in intensity, constant, localized in the lower lumbar spine, stinging in character w shooting pain towards the BLEs. Pain is provoked by over activity. Pain is alleviated by PT was years ago, chiropractic treatments semi weekly x 5 wks w last visit in Apr 2023, heat, ice, medications (Neurontin), topical, repositioning and rest. Oswestry axial pain score at 30. PMH: OA, Asthma, Angina, COPD, DM II, GERD, Hyperlipidemia, HTN, Liver Disease, Seizure Disorder, Eczema, Anxiety, Bipolar, Depression, Panic Disorder, Schizophrenia PSH: Hernia Repair, BL Foot Surgery, Tonsillectomy, L Testicle Surgery (2015), Sternum Surgery SH: Daily tobacco use since age 13, Rare ETOH use, No illicit drug use FH: Mo- CA. Fa- CA. Sis- CA. All: See list Meds: See list REVIEW OF ORGAN SYSTEMS: CONSTITUTIONAL: No fevers or chills. No recent weight l oss. NEUROLOGICAL: + numbness and tingling along the distal extremities. No seizure disorders or headaches. MUSCULOSKELETAL: + pain PSYCHIATRIC: Denies current depression or suicidal thoughts. Physical Examinations : Constitutional : Cooperative , not in acute distress . Neurologic : Cranial nerve II to XII intact. No focal neurological deficits. Psychiatric : alert & oriented x 3. Matching mood & appropriate affect. Judgment & insight intact. Musculoskeletal : Cervical Spine Motor strength in the deltoid and biceps: Normal right side. Normal Left side Motor strength biceps and the wrist extensors: Normal right side . Normal left side Motor strength in the triceps muscle: Normal right side. Normal left side Deep tendon reflexes: Normal at the biceps. Normal at Brachioradialis. Normal at triceps Vertebral body tenderness to deep palpation over Cervical facet loading test: positive bilaterally Spurling test: positive bilaterally Neck distraction test: positive bilaterally Eusebia sign: positive bilaterally Lumbar spine Motor strength lower extremities ,thigh and legs 5/5 Right side , 5/5 Left side Deep tendon reflexes : Normal Knee Jerk. Normal Ankle Jerk Vertebral body tenderness over L5 Goodwin Test positive Lumbar facet Loading Test: positive Right / positive Left Range of motion of the lumbar spine Flexion 30 degrees, extension 10 degrees Straight Leg Raise test: Left < Right positive at 35 degrees Tammi test: positive right / positive left. Severe tenderness over the Sacroiliac joint on the Right / Left sides Gaenslen test: positive bilaterally Seated flexion test: positive bilaterally. Sacral spine : Severe tenderness over the Sacroiliac joint: right side / left side Range of motion: Flexion of the lumbar spine <60 degrees Range of motion: Extension of the lumbar spine <20 degrees Gaenslen's Test positive Mohsen's Test positive Tammi test: positive right side / left side Thigh Thrust Test Sacral Thrust Test Imaging: MRI non contrast of the lumbar spine from 01/09/23 reviewed Assessment/ Plan : Lumbar DDD Recommendation of FLORENCE L5-S1. May need a series of injections for optimal pain relief. Risks, benefits of procedure discussed and patient verbalized understanding. Admits to aspirin or anti- coagulant use or medical history of diabetes. Protocol for discontinuation/ continuation of medications damir procedure discussed. Minimal anesthesia provided, if clinically indicated, consisting of Versed and Fentanyl. All questions answered. I have spent greater than 30 minutes on patient care today. Dr Valencia was available by phone for the evaluation of this patient. The time was used to review the medical records including relevant urine studies and Prescription history (MAPs), review of the available imaging, evaluation and examination of the patient, coordination of care with the medical staff and if applicable referring physicians, as well as creation of the medical record PQRS Narrative: Smoking Status Current every day smoker Home Medications: Ambulatory Orders Haloperidol Decanoate [Haldol D] 150 mg IM Q21D 07/31/14 Aspirin [Adult Low Dose Aspirin EC] 81 mg PO DAILY 12/07/19 Brivaracetam [Briviact] 50 mg PO BID 12/07/19 Levothyroxine Sodium [Synthroid] 50 mcg PO DAILY 12/07/19 Sertraline [Zoloft] 100 mg PO DAILY 12/07/19 lamoTRIgine [LaMICtal] 200 mg PO BID 12/07/19 lisinopriL 20 mg PO HS 12/07/19 metFORMIN HCL [Glucophage] 1,000 mg PO BID 12/07/19 Albuterol Sulfate [Albuterol Sulfate Hfa] 1 puff PO RT-Q4H PRN 02/07/23 Docusate Sodium [Dok] 100 mg PO DAILY PRN 02/07/23 Famotidine [Pepcid] 40 mg PO BID 02/07/23 Fenofibrate [Lofibra] 160 mg PO DAILY 02/07/23 Ferrous Sulfate [Iron (65 MG Elemental)] 325 mg PO DAILY 02/07/23 Fluticasone Propionate [Flovent Hfa 220 mcg] 2 puff INHALATION RT-BID 02/07/23 Gabapentin [Neurontin] 400 mg PO BID 02/07/23 Glimepiride [Amaryl] 2 mg PO DAILY 02/07/23 Insulin NPH Hum/Reg Insulin Hm [humuLIN 70/30 Kwikpen] 18 unit SQ W/SUPPER 02/07/23 Insulin NPH Hum/Reg Insulin Hm [humuLIN 70/30 Kwikpen] 33 unit SQ W/BRKFST 02/07/23 Loperamide [Imodium] 4 mg PO BID PRN 02/07/23 OXcarbazepine [Trileptal] 150 mg PO BID 02/07/23 Pantoprazole Sodium [Protonix] 40 mg PO DAILY 02/07/23 Propranolol [Inderal] 10 mg PO BID 02/07/23 Tamsulosin HCl [Flomax] 0.4 mg PO HS 02/07/23 lamoTRIgine [LaMICtal] 75 mg PO BID 02/07/23 rOPINIRole HCL [Requip] 0.25 mg PO TID 02/07/23 sitaGLIPtin [Januvia] 100 mg PO DAILY 02/07/23 tiZANidine [Zanaflex] 2 mg PO TID PRN 02/07/23 tiZANidine [Zanaflex] 4 mg PO TID PRN 02/07/23 traZODone HCL 150 mg PO HS 02/07/23 Atorvastatin [Lipitor] 80 mg PO HS #30 tab 02/11/23 Clopidogrel [Plavix] 75 mg PO DAILY #30 tab 02/11/23 Sulfamethox-Tmp 800-160Mg [Bactrim DS 800-160 mg] 1 each PO BID #8 tab 02/11/23 Controlled Substance Measures - Controlled Substance Measures Is patient prescribed a controlled substance at discharge?: No
== END ==
LOC: PNWHC3 09:46
PROVIDERS: ATTEND Specialist
DX: G89.29 Other chronic pain (principal); M54.50 Low back pain, unspecified; M51.36 Other intervertebral disc degeneration, lumbar region; M19.90 Unspecified osteoarthritis, unspecified site; J44.9 Chronic obstructive pulmonary disease, unspecified; E11.9 Type 2 diabetes mellitus without complications; E78.5 Hyperlipidemia, unspecified; K21.9 Gastro-esophageal reflux disease without esophagitis; I10 Essential (primary) hypertension; F41.9 Anxiety disorder, unspecified; F17.200 Nicotine dependence, unspecified, uncomplicated; F31.9 Bipolar disorder, unspecified; Z86.69 Personal history of other diseases of the nervous system and sense organs; Z79.84 Long term (current) use of oral hypoglycemic drugs; Z79.51 Long term (current) use of inhaled steroids; Z79.899 Other long term (current) drug therapy; Z79.4 Long term (current) use of insulin; Z88.5 Allergy status to narcotic agent; Z88.8 Allergy status to other drugs, medicaments and biological substances; Z79.82 Long term (current) use of aspirin
CPT/HCPCS: 99211

== ENCOUNTER 2023-06-16 03:24 | Emergency (ER) | payer OTHER ==
[2023-06-16 03:57] VITALS: RESP 19; TEMP 98.2
--- NOTE | 2023-06-16 04:02 | ED ---
General Adult HPI - General Chief complaint: Chest Pain Stated complaint: Rib Pain Time Seen by Provider: 06/16/23 03:50 Source: patient Mode of arrival: wheelchair - History of Present Illness Initial comments: Geo is a 43-year-old gentleman with extensive past medical history who presents the emergency department today for evaluation of left-sided chest wall pain. Patient reports she's been having this pain in his left anterior chest wall in the pectoris muscle area. Pain is worse with any movement or palpation. There is no skin color changes. Patient was seen for this a couple weeks ago he had a computed tomography scan of chest he followed with his primary care they recommended ultrasound has not been performed yet. Pain is not exertional. Pain is not relieved by rest. Patient states he can't take any [id number] medications due to interactions with his psych meds. He's not been taking anything for the pain. - Related Data Home Medications Medication Instructions Recorded Confirmed Haloperidol Decanoate [Haldol D] 150 mg IM Q21D 07/31/14 06/04/23 Aspirin [Adult Low Dose Aspirin EC] 81 mg PO DAILY 12/07/19 06/04/23 Brivaracetam [Briviact] 50 mg PO BID 12/07/19 06/04/23 Levothyroxine Sodium [Synthroid] 50 mcg PO DAILY 12/07/19 06/04/23 Sertraline [Zoloft] 100 mg PO DAILY 12/07/19 06/04/23 lamoTRIgine [LaMICtal] 200 mg PO BID 12/07/19 06/04/23 lisinopriL 20 mg PO HS 12/07/19 06/04/23 metFORMIN HCL [Glucophage] 1,000 mg PO BID 12/07/19 06/04/23 Albuterol Sulfate [Albuterol 1 puff PO RT-Q4H PRN 02/07/23 06/04/23 Sulfate Hfa] Docusate Sodium [Dok] 100 mg PO DAILY PRN 02/07/23 06/04/23 Famotidine [Pepcid] 40 mg PO BID 02/07/23 06/04/23 Fenofibrate [Lofibra] 160 mg PO DAILY 02/07/23 06/04/23 Fluticasone Propionate [Flovent 2 puff INHALATION RT-BID 02/07/23 06/04/23 Hfa 220 mcg] Gabapentin [Neurontin] 400 mg PO BID 02/07/23 06/04/23 Insulin NPH Hum/Reg Insulin Hm 18 unit SQ W/SUPPER 02/07/23 06/04/23 [humuLIN 70/30 Kwikpen] Insulin NPH Hum/Reg Insulin Hm 33 unit SQ W/BRKFST 02/07/23 06/04/23 [humuLIN 70/30 Kwikpen] OXcarbazepine [Trileptal] 150 mg PO BID 02/07/23 06/04/23 Propranolol [Inderal] 10 mg PO BID 02/07/23 06/04/23 Tamsulosin HCl [Flomax] 0.4 mg PO HS 02/07/23 06/04/23 lamoTRIgine [LaMICtal] 75 mg PO BID 02/07/23 06/04/23 sitaGLIPtin [Januvia] 100 mg PO DAILY 02/07/23 06/04/23 tiZANidine [Zanaflex] 4 mg PO TID PRN 02/07/23 06/04/23 traZODone HCL 150 mg PO HS 02/07/23 06/04/23 Gabapentin [Neurontin] 100 mg PO BID 06/04/23 06/04/23 Previous Rx's Medication Instructions Recorded Atorvastatin [Lipitor] 80 mg PO HS #30 tab 02/11/23 Lidocaine 5% Patch [Lidoderm] 1 each TP DAILY 24 Days #24 patch 06/07/23 oxyCODONE HCL/ACETAMINOPHEN 1 each PO Q8HR #9 tab 06/07/23 [Percocet 5-325 mg Tablet] Allergies Allergy/AdvReac Type Severity Reaction Status Date / Time hydrocodone Allergy Unknown Verified 06/07/23 11:36 ketorolac [From Toradol] Allergy Abdominal Verified 06/07/23 11:36 Pain mirtazapine [From Remeron] Allergy Abdominal Verified 06/07/23 11:36 Pain pioglitazone [From Actos] Allergy Abdominal Verified 06/07/23 11:36 Pain Review of Systems ROS Statement: Those systems with pertinent positive or pertinent negative responses have been documented in the HPI. ROS Other: All systems not noted in ROS Statement are negative. Past Medical History Past Medical History: Asthma, Chest Pain / Angina, COPD, Diabetes Mellitus, GERD/Reflux, Hyperlipidemia, Hypertension, Liver Disease, Seizure Disorder, Skin Disorder Additional Past Medical History / Comment(s): grand mal seizures-"last seizure yrs ago", coughing from cigarettes, hemorrhoid, constipation/diarrhea, hx fatty liver, psoriasis, eczema, back pain History of Any Multi-Drug Resistant Organisms: MRSA Date of last positivie culture/infection: 2019 MDRO Source:: foot Past Surgical History: Hernia Repair, Orthopedic Surgery, Tonsillectomy Additional Past Surgical History / Comment(s): 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, [facility], sternum partially removed Past Anesthesia/Blood Transfusion Reactions: No Reported Reaction Past Psychological History: Anxiety, Bipolar, Depression, Panic Disorder, Schizophrenia Smoking Status: Current every day smoker, Light tobacco smoker Past Alcohol Use History: Occasional Past Drug Use History: None Reported - Past Family History Sister(s) Family Medical History: Cancer Mother Family Medical History: Cancer Father Family Medical History: Cancer General Exam - General Exam Comments Initial Comments: Physical Exam GENERAL: Unkempt, no acute distress HENT: Normocephalic, Atraumatic. Edentulous EYES: PERRL, EOMI PULMONARY: Unlabored respirations. CARDIOVASCULAR: RRR Tenderness to palpation of left chest wall ABDOMEN: Soft and nontender with normal bowel sounds. SKIN: Skin is clear with no lesions or rashes and otherwise unremarkable. : Deferred NEUROLOGIC: Patient is alert and oriented x3. Moving all extremities spontaneously MUSCULOSKELETAL: Normal extremities with adequate strength and full range of motion. . No lower extremity swelling or edema. No calf tenderness. Superior portion of sternum missing PSYCHIATRIC: Normal psychiatric evaluation. Course Vital Signs 06/16/23 03:50 Temperature 98.2 F Pulse Rate 73 Respiratory 19 Rate Blood Pressure 115/83 O2 Sat by Pulse 99 Oximetry Medical Decision Making - Medical Decision Making Was pt. sent in by a medical professional or institution (, PA, STATION MANAGER, urgent care, hospital, or [facility]...) When possible be specific @ -No Did you speak to anyone other than the patient for history (EMS, parent, family, police, friend...)? What history was obtained from this source @ -No Did you review nursing and triage notes (agree or disagree)? Why? @ -I reviewed and agree with nursing and triage notes Were old charts reviewed (outside hosp., previous admission, EMS record, old EKG, old radiological studies, urgent care reports/EKG's, [facility] records)? Report findings @ -Previous ER visits and CT scans were reviewed Differential Diagnosis (chest pain, altered mental status, abdominal pain women, abdominal pain men, vaginal bleeding, weakness, fever, dyspnea, syncope, headache, dizziness, GI bleed, back pain, seizure, CVA, palpatations, mental health, musculoskeletal)? @ -Differential Chest Pain: Stable Angina, Unstable Angina, STEMI, NSTEMI Aortic Dissection, Pneumothorax, Musculoskeletal, Esophageal Spasm GERD, Cholecystitis, Pancreatitis, Zoster, this is not meant to be an all-inclusive list. EKG interpreted by me (3pts min.). @ -As above X-rays interpreted by me (1pt min.). @ -No pneumothorax CT interpreted by me (1pt min.). @ -None done U/S interpreted by me (1pt. min.). @ -None done What testing was considered but not performed or refused? (CT, X-rays, U/S, labs)? Why? @ -None What meds were considered but not given or refused? Why? @ -None Did you discuss the management of the patient with other professionals (professionals i.e. , PA, STATION MANAGER, lab, RT, psych nurse, social media assistant, documentation billing clerk, teacher, loan officer assistant, case fitter)? Give summary @ -No Was smoking cessation discussed for >3mins.? @ -No Was critical care preformed (if so, how long)? @ -No Were there social determinants of health that impacted care today? How? (Homelessness, low income, unemployed, alcoholism, drug addiction, transportation, low edu. Level, literacy, decrease access to med. care, [place] [facility], rehab)? @ -No Was there de-escalation of care discussed even if they declined (Discuss DNR or withdrawal of care, Hospice)? DNR status @ -No What co-morbidities impacted this encounter? (DM, HTN, Smoking, COPD, CAD, Cancer, CVA, ARF, Chemo, Hep., AIDS, mental health diagnosis, sleep apnea, morbid obesity)? @ -Diabetes Was patient admitted / discharged? Hospital course, mention meds given and route, prescriptions, significant lab abnormalities, going to OR and other pertinent info. @ -Discharge Undiagnosed new problem with uncertain prognosis? @ -No Drug Therapy requiring intensive monitoring for toxicity (Heparin, Nitro, Insulin, Cardizem)? @ -No Were any procedures done? @ -No Diagnosis/symptom? @ -Chest wall pain, noncardiac Acute, or Chronic, or Acute on Chronic? @ -Recurrent Uncomplicated (without systemic symptoms) or Complicated (systemic symptoms)? @ -default Side effects of treatment? @ -No Exacerbation, Progression, or Severe Exacerbation? @ -No Poses a threat to life or bodily function? How? (Chest pain, [place], [place], pneumonia, PE, COPD, DKA, ARF, appy, cholecystitis, CVA, Diverticulitis, Homicidal, Suicidal, threat to staff... and all critical care pts) @ -No - Lab Data Result diagrams: 06/16/23 04:47 06/16/23 04:47 Lab Results 06/16/23 06/16/23 06/16/23 Range/Units 04:47 04:47 04:47 WBC 9.5 (3.8-10.6) k/uL RBC 4.70 (4.30-5.90) m/uL Hgb 15.1 (13.0-17.5) gm/dL Hct 43.6 (39.0-53.0) % MCV 92.8 (80.0-100.0) fL MCH 32.2 (25.0-35.0) pg MCHC 34.7 (31.0-37.0) g/dL RDW 13.8 (11.5-15.5) % Plt Count 158 (150-450) k/uL MPV 8.7 Neutrophils % 74 % Lymphocytes % 14 % Monocytes % 6 % Eosinophils % 4 % Basophils % 0 % Neutrophils # 7.0 (1.3-7.7) k/uL Lymphocytes # 1.4 (1.0-4.8) k/uL Monocytes # 0.6 (0-1.0) k/uL Eosinophils # 0.3 (0-0.7) k/uL Basophils # 0.0 (0-0.2) k/uL Sodium 139 (137-145) mmol/L Potassium 4.3 (3.5-5.1) mmol/L Chloride 105 (98-107) mmol/L Carbon Dioxide 23 (22-30) mmol/L Anion Gap 11 mmol/L BUN 15 (9-20) mg/dL Creatinine 0.94 (0.66-1.25) mg/dL Est GFR (CKD-EPI)AfAm >90 (>60 ml/min/1.73 sqM) Est GFR (CKD-EPI)NonAf >90 (>60 ml/min/1.73 sqM) Glucose 215 H (74-99) mg/dL Calcium 9.3 (8.4-10.2) mg/dL Magnesium 1.7 (1.6-2.3) mg/dL Total Bilirubin 0.6 (0.2-1.3) mg/dL AST 34 (17-59) U/L ALT 31 (4-49) U/L Alkaline Phosphatase 62 (38-126) U/L Creatine Kinase 113 (55-170) U/L Troponin I <0.012 (0.000-0.034) ng/mL C-Reactive Protein <0.5 (<1.0) mg/dL Total Protein 7.2 (6.3-8.2) g/dL Albumin 4.0 (3.5-5.0) g/dL Disposition Clinical Impression: Chest wall pain Disposition: HOME SELF-CARE Condition: Stable Additional Instructions: I suspect your pain is due to soft tissue - likely muscle. I recommend continued heat/ice and massage. Follow with your primary care provider for continued out patient management Is patient prescribed a controlled substance at d/c from ED?: No Referrals: Mohsen Shipman [Primary Care Provider] - 1-2 days
[2023-06-16] MEDS ORDERED: SODIUM CHLORIDE 0.9% 1,000 ML IV STA (04:44)
[2023-06-16] MEDS ORDERED: MORPHINE SULFATE 4 MG/ML SYRINGE IVP STA (05:09)
[2023-06-16 05:33] LABS: ALT 31 U/L (4-49); AST 34 U/L (17-59); African American GFR (CKD) >90 (>60 ml/min/1.73 sqM); Alkaline Phosphatase 62 U/L (38-126); Anion Gap 11 mmol/L; Basophils % (A) 0 %; Blood Urea Nitrogen 15 mg/dL (9-20); Calcium 9.3 mg/dL (8.4-10.2); Carbon Dioxide 23 mmol/L (22-30); Chloride 105 mmol/L (98-107); Creatine Kinase 113 U/L (55-170); Eosinophils # (A) 0.3 k/uL (0-0.7); Eosinophils % (A) 4 %; Glucose 215 mg/dL (74-99); HCT 43.6 % (39.0-53.0); HGB 15.1 gm/dL (13.0-17.5); Lymphocytes # (A) 1.4 k/uL (1.0-4.8); Lymphocytes % (A) 14 %; MCH 32.2 pg (25.0-35.0); MCHC 34.7 g/dL (31.0-37.0); MCV 92.8 fL (80.0-100.0); Magnesium 1.7 mg/dL (1.6-2.3); Mean Platelet Volume 8.7; Monocytes # (A) 0.6 k/uL (0-1.0); Monocytes % (A) 6 %; Neutrophils % (A) 74 %; Non-African American GFR(CKD) >90 (>60 ml/min/1.73 sqM); Platelet Count 158 k/uL (150-450); Potassium 4.3 mmol/L (3.5-5.1); RDW 13.8 % (11.5-15.5); Sodium 139 mmol/L (137-145); Total Bilirubin 0.6 mg/dL (0.2-1.3); Total Protein 7.2 g/dL (6.3-8.2); WBC 9.5 k/uL (3.8-10.6)
[2023-06-16 06:08] LABS: C Reactive Protein <0.5 mg/dL (<1.0)
--- NOTE | 2023-06-16 06:08 | XR ---
EXAMINATION TYPE: XR chest 2V DATE OF EXAM: 06/16/2023 5:00 AM CLINICAL INDICATION:Male, 43 years old with history of Chest Pain; [facility] COMPARISON: Chest radiographs from 02/07/2023. TECHNIQUE: XR chest 2V Frontal and lateral views of the chest. FINDINGS: Lungs/Pleura: There is no evidence of pleural effusion, focal consolidation, or pneumothorax. Pulmonary vascularity: Unremarkable. Heart/mediastinum: Cardiomediastinal silhouette is unremarkable. Musculoskeletal: No acute osseous pathology. Other findings: None Lines/Tubes: IMPRESSION: No acute cardiopulmonary disease/process.
[2023-06-16 06:50] VITALS: BP 109/70; PULSE 76
== END 2023-06-16 06:49 | disposition home or self-care (01) ==
LOC: EC 03:24
DX: R07.89 Other chest pain (principal); E11.9 Type 2 diabetes mellitus without complications; I10 Essential (primary) hypertension; K21.9 Gastro-esophageal reflux disease without esophagitis; E78.5 Hyperlipidemia, unspecified; G40.409 Other generalized epilepsy and epileptic syndromes, not intractable, without status epilepticus; J44.9 Chronic obstructive pulmonary disease, unspecified; F31.9 Bipolar disorder, unspecified; F41.9 Anxiety disorder, unspecified; F20.9 Schizophrenia, unspecified; F17.210 Nicotine dependence, cigarettes, uncomplicated; Z79.84 Long term (current) use of oral hypoglycemic drugs; Z79.82 Long term (current) use of aspirin; Z79.4 Long term (current) use of insulin; Z79.899 Other long term (current) drug therapy; Z88.5 Allergy status to narcotic agent; Z88.8 Allergy status to other drugs, medicaments and biological substances
CPT/HCPCS: 36415; 80053; 82550; 83735; 84484; 85025; 86140; 71046; 99285; 96374; 96361; J2270

== ENCOUNTER → 2023-06-25 | Outpatient (CLI) | payer OTHER ==
[2023-06-25 11:18] VITALS: BP 118/78; PULSE 95; RESP 116; TEMP 98.2
--- NOTE | 2023-06-25 14:48 | P.PAINPG ---
PQRS Measure Charge Sheet Comment: HISTORY OF PRESENT ILLNESS: 43 yr old male presents today w severe and chronic LBP x 2 yrs secondary to DDD, spndylosis and facet arthropathy without myelopathy for evaluation s/p FLORENCE L5-S1 #1. Pt staes she experienced 100% pain relief x 3 wks s/p procedure. Pt states pain level is provoked at 10 /10 in intensity, constant, localized in the lower lumbar spine, stinging in character w shooting pain towards the BLEs, R> L. Pain is provoked by over activity. Pain is alleviated by PT was years ago, chiropractic treatments semi weekly x 5 wks w last visit in Apr 2023, heat, ice, medications, topical, repositioning and rest. Oswestry axial pain score at 30. Interventional procedures include FLORENCE L5-S1 Medications include Neurontin, Tyl REVIEW OF ORGAN SYSTEMS: CONSTITUTIONAL: No fevers or chills. No recent weight loss. NEUROLOGICAL: + numbness and tingling along the distal extremities. No seizure disorders or headaches. MUSCULOSKELETAL: + pain PSYCHIATRIC: Denies current depression or suicidal thoughts. Physical Examinations : Constitutional : Cooperative , not in acute distress . Neurologic : Cranial nerve II to XII intact. No focal neurological deficits. Psychiatric : alert & oriented x 3. Matching mood & appropriate affect. Judgment & insight intact. Musculoskeletal : Cervical Spine Motor strength in the deltoid and biceps: Normal right side. Normal Left side Motor strength biceps and the wrist extensors: Normal right side . Normal left side Motor strength in the triceps muscle: Normal right side. Normal left side Deep tendon reflexes: Normal at the biceps. Normal at Brachioradialis. Normal at triceps Vertebral body tenderness to deep palpation over Cervical facet loading test: positive bilaterally Spurling test: positive bilaterally Neck distraction test: positive bilaterally Eusebia sign: positive bilaterally Lumbar spine Motor strength lower extremities ,thigh and legs 5/5 Right side , 5/5 Left side Deep tendon reflexes : Normal Knee Jerk. Normal Ankle Jerk Vertebral body tenderness over L5 Goodwin Test positive Lumbar facet Loading Test: positive Right / positive Left Range of motion of the lumbar spine Flexion 30 degrees, extension 10 degrees Straight Leg Raise test: Left < Right positive at 35 degrees Tammi test: positive right / positive left. Severe tenderness over the Sacroiliac joint on the Right / Left sides Gaenslen test: positive bilaterally Seated flexion test: positive bilaterally. Sacral spine : Severe tenderness over the Sacroiliac joint: right side / left side Range of motion: Flexion of the lumbar spine <60 degrees Range of motion: Extension of the lumbar spine <20 degrees Gaenslen's Test positive Mohsen's Test positive Tammi test: positive right side / left side Thigh Thrust Test Sacral Thrust Test Imaging: MRI non contrast of the lumbar spine from 01/09/23 reviewed Assessment/ Plan : Lumbar DDD Recommendation of FLORENCE L5-S1 #2. May need a series of injections for optimal pain relief. Risks, benefits of procedure discussed and patient verbalized understanding. Admits to aspirin or anti- coagulant use or medical history of diabetes. Protocol for discontinuation/ continuation of medications damir procedure discussed. Minimal anesthesia provided, if clinically indicated, consisting of Versed and Fentanyl. All questions answered. I have spent greater than 30 minutes on patient care today. Dr Valencia was available by phone for the evaluation of this patient. The time was used to review the medical records including relevant urine studies and Prescription history (MAPs), review of the available imaging, evaluation and examination of the patient, coordination of care with the medical staff and if applicable referring physicians, as well as creation of the medical record PQRS Narrative: Smoking Status Current every day smoker Hx Alcohol Use (MH) Yes Home Medications: Ambulatory Orders Haloperidol Decanoate [Haldol D] 150 mg IM Q21D 07/31/14 Aspirin [Adult Low Dose Aspirin EC] 81 mg PO DAILY 12/07/19 Brivaracetam [Briviact] 50 mg PO BID 12/07/19 Levothyroxine Sodium [Synthroid] 50 mcg PO DAILY 12/07/19 Sertraline [Zoloft] 100 mg PO DAILY 12/07/19 lamoTRIgine [LaMICtal] 200 mg PO BID 12/07/19 lisinopriL 20 mg PO HS 12/07/19 metFORMIN HCL [Glucophage] 1,000 mg PO BID 12/07/19 Albuterol Sulfate [Albuterol Sulfate Hfa] 1 puff PO RT-Q4H PRN 02/07/23 Docusate Sodium [Dok] 100 mg PO DAILY PRN 02/07/23 Famotidine [Pepcid] 40 mg PO BID 02/07/23 Fenofibrate [Lofibra] 160 mg PO DAILY 02/07/23 Fluticasone Propionate [Flovent Hfa 220 mcg] 2 puff INHALATION RT-BID 02/07/23 Gabapentin [Neurontin] 400 mg PO BID 02/07/23 Insulin NPH Hum/Reg Insulin Hm [humuLIN 70/30 Kwikpen] 18 unit SQ W/SUPPER 02/07/23 Insulin NPH Hum/Reg Insulin Hm [humuLIN 70/30 Kwikpen] 33 unit SQ W/BRKFST 02/07/23 OXcarbazepine [Trileptal] 150 mg PO BID 02/07/23 Propranolol [Inderal] 10 mg PO BID 02/07/23 Tamsulosin HCl [Flomax] 0.4 mg PO HS 02/07/23 lamoTRIgine [LaMICtal] 75 mg PO BID 02/07/23 sitaGLIPtin [Januvia] 100 mg PO DAILY 02/07/23 tiZANidine [Zanaflex] 4 mg PO TID PRN 02/07/23 traZODone HCL 150 mg PO HS 02/07/23 Atorvastatin [Lipitor] 80 mg PO HS #30 tab 02/11/23 Gabapentin [Neurontin] 100 mg PO BID 06/04/23 Lidocaine 5% Patch [Lidoderm] 1 each TP DAILY 24 Days #24 patch 06/07/23 oxyCODONE HCL/ACETAMINOPHEN [Percocet 5-325 mg Tablet] 1 each PO Q8HR #9 tab 06/07/23 Controlled Substance Measures - Controlled Substance Measures Is patient prescribed a controlled substance at discharge?: No
== END ==
LOC: PNWHC3 08:55
PROVIDERS: ATTEND Specialist
DX: M51.36 Other intervertebral disc degeneration, lumbar region (principal); F17.200 Nicotine dependence, unspecified, uncomplicated; Z88.8 Allergy status to other drugs, medicaments and biological substances; Z88.5 Allergy status to narcotic agent; Z79.82 Long term (current) use of aspirin
CPT/HCPCS: 99211

== ENCOUNTER 2023-07-08 12:41 | Day surgery (SDC) | payer OTHER ==
[~2023-07-08 12:41] MED LIST changes: -DEXAMETHASONE SOD PHOSPHATE 4 MG/ML 1 ML VIAL IV ONE; -HEPARIN SODIUM,PORCINE 5,000 UNIT/ML 1 ML VIAL SQ ONE; -LIDOCAINE 1% (10MG/ML) FOR IV START INTRADERMA PRN; -MIDAZOLAM 2 MG/2 ML VIAL IV PRN; -ONDANSETRON 4 MG/2 ML VIAL IVP ONE
[2023-07-08 13:08] LABS: Glucose,Whole Blood 144 mg/dL (70-110)
[2023-07-08 13:18] VITALS: RESP 16; TEMP 97.5
[2023-07-08] MEDS ORDERED: IOPAMIDOL M200 10 ML VIAL ONE (13:19)
[2023-07-08] MEDS ORDERED: methylPREDNISolone ACETATE 40 MG/ML 1 ML VIAL ONE (13:19)
--- NOTE | 2023-07-08 13:25 | P.PCN ---
Date of Procedure: 07/08/23 Description of Procedure: PREOPERATIVE DIAGNOSIS: lumbar radiculopathy POSTOPERATIVE DIAGNOSIS: Lumbar radiculopathy PROCEDURE 1. Lumbar epidural steroid injection under fluoroscopic guidance at the L5/S1 level. 2. Lumbar epidurogram. Imaging: Fluoroscopy was used, images where saved to the medical record ANESTHESIA: LOCAL ONLY EBL: Minimal PROCEDURE INDICATION: The patient with low back pain and radiculitis symptoms unresponsive to conservative treatment. Fluoroscopy was used to optimize visualization of the needle placement and to maximize safety. PROCEDURE DESCRIPTION / TECHNIQUE: The patient was seen and identified in the preoperative area. Risks, benefits, complications including but not limited to infections, bleeding, allergic re action to medications, nerve damage and incomplete pain relief, as well as alternatives to the procedure were discussed with the patient. The patient agreed to proceed with the procedure and signed the consent. IV was started if indicated above, and vital signs were stable. Patient was taken to the OR and time out was completed. The patient was placed in the prone position on procedure table and a pillow was placed under the abdomen to reduce lumbar lordosis. The lumbosacral area was prepped and draped in the usual sterile fashion. Vitals were closely monitored during the procedure. Using anterior-posterior fluoroscopy, the L 5/1 interlaminar space was identified and the skin over this site was marked and then infiltrated with 1% lidocaine subcutaneously. Subsequently, a 20-gauge Tuohy epidural needle was inserted and advanced toward the epidural space using the Loss of resistance technique and guided by AP and lateral fluoroscopy. The correct needle position in the epidural space was verified with the injection of 1 mL of Omnipaque 180 contrast to observe an acceptable epidurogram, after negative aspiration for blood and CSF and in the absence of paresthesias. Again after negative aspiration, a 3 ml mixture containing 40mg of depomedrol and 2 ml of preservative free Normal Saline was injected and a washout of epidurogram was seen. Needle was withdrawn intact, skin was cleansed, and bandages were applied. COMPLICATIONS: None DISPOSITION / PLANS: The patient was placed in a supine position and transferred to the recovery area in a stable condition for observation. There was no evidence of lower extremity motor or sensory deficit after the procedure. Patient was discharged from the recovery room after meeting discharge criteria. Home discharge instructions were given to the patient by the staff. The patient was reexamined prior to discharge. The patient will follow up as directed.
--- NOTE | 2023-07-08 13:56 | FL ---
Fluoroscopy History: SÁNCHEZ POZO FL TIME 1 SEC DAP [id number]
[2023-07-08 13:59] VITALS: BP 132/85; PULSE 78
== END 2023-07-08 13:45 | disposition home or self-care (01) ==
LOC: ORPAIN 12:41
PROVIDERS: ATTEND Hospitalist
DX: M54.16 Radiculopathy, lumbar region (principal); Z88.8 Allergy status to other drugs, medicaments and biological substances
CPT/HCPCS: 62323; J1030; Q9966

== ENCOUNTER → 2023-07-15 | Outpatient (CLI) | payer OTHER ==
[2023-07-15 10:20] VITALS: BP 141/97; PULSE 76; RESP 16; TEMP 97.6
--- NOTE | 2023-07-15 14:40 | P.PAINPG ---
PQRS Measure Charge Sheet Comment: HISTORY OF PRESENT ILLNESS: 43 yr old male presents today w severe and chronic LBP x 2 yrs secondary to DDD, spndylosis and facet arthropathy without myelopathy for evaluation s/p FLORENCE L5-S1 #2 on 07/08/23. Pt states she experienced 0% pain relief x 1 wks s/p procedure. Pt states pain level is provoked at 10 /10 in intensity, constant, localized in the lower lumbar spine, stinging in character w shooting pain towards the BLEs, R> L. Pain is provoked by over activity. Pain is alleviated by PT was years ag o, chiropractic treatments semi weekly x 5 wks w last visit in Apr 2023, heat, ice, medications, topical, repositioning and rest. Fax from Dr Grullon's office received on 07/03/23 stated pt no longer wants Neurontin prescribed to him from them because this clinic wont prescribe narcotics to him as he has a narcotic agreement with them. Today pt stated the Dr Grullon told him to obtain Neurontin and whatever else he needs from this clinic. I discussed w pt that a lateral move to obtain narcotics from a different physician will result on getting a smaller quantity of medications per the new [facility] rules. Pt responded that he'll just go back to Dr Lindsey and tell her "whatever." He also stated he hasn't taken Neurontin "in a while" while [facility] shows he filled it 06/26/23 for a quantity of #60 which he should still have in his possession. Oswestry axial pain score at 24. Interventional procedures include FLORENCE L5-S1 x2 Medications include Neurontin, Tyl REVIEW OF ORGAN SYSTEMS: CONSTITUTIONAL: No fevers or chills. No recent weight loss. NEUROLOGICAL: + numbness and tingling along the distal extremities. No seizure disorders or headaches. MUSCULOSKELETAL: + pain PSYCHIATRIC: Denies current depression or suicidal thoughts. Physical Examinations : Constitutional : Cooperative , not in acute distress . Neurologic : Cranial nerve II to XII intact. No focal neurological deficits. Psychiatric : alert & oriented x 3. Matching mood & appropriate affect. Judgment & insight intact. Musculoskeletal : Cervical Spine Motor strength in the deltoid and biceps: Normal right side. Normal Left side Motor strength biceps and the wrist extensors: Normal right side . Normal left side Motor strength in the triceps muscle: Normal right side. Normal left side Deep tendon reflexes: Normal at the biceps. Normal at Brachioradialis. Normal at triceps Vertebral body tenderness to deep palpation over Cervical facet loading test: positive bilaterally Spurling test: positive bilaterally Neck distraction test: positive bilaterally Eusebia sign: positive bilaterally Lumbar spine Motor strength lower extremities ,thigh and legs 5/5 Right side , 5/5 Left side Deep tendon reflexes : Normal Knee Jerk. Normal Ankle Jerk Vertebral body tenderness over L5 Goodwin Test positive Lumbar facet Loading Test: positive Right / positive Left Range of motion of the lumbar spine Flexion 30 degrees, extension 10 degrees Straight Leg Raise test: Left < Right positive at 35 degrees Tammi test: positive right / positive left. Severe tenderness over the Sacroiliac joint on the Right / Left sides Gaenslen test: positive bilaterally Seated flexion test: positive bilaterally. Sacral spine : Severe tenderness over the Sacroiliac joint: right side / left side Range of motion: Flexion of the lumbar spine <60 degrees Range of motion: Extension of the lumbar spine <20 degrees Gaenslen's Test positive Mohsen's Test positive Tammi test: positive right side / left side Thigh Thrust Test Sacral Thrust Test Imaging: MRI non contrast of the lumbar spine from 01/09/23 reviewed Assessment/ Plan : Lumbar DDD UDS collected today. Unsure if pt is doctor-seeking or diverting. If pt wants an RFA or FLORENCE, he may do so on an as needed basis. All questions answered. I have spent greater than 30 minutes on patient care today. Dr Valencia was available by phone for the evaluation of this patient. The time was used to review the medical records including relevant urine studies and Prescription history (MAPs), review of the available imaging, evaluation and examination of the patient, coordination of care with the medical staff and if applicable referring physicians, as well as creation of the medical record PQRS Narrative: Smoking Status Current every day smoker Hx Alcohol Use (MH) Yes Home Medications: Ambulatory Orders Haloperidol Decanoate [Haldol D] 150 mg IM Q21D 07/31/14 Aspirin [Adult Low Dose Aspirin EC] 81 mg PO DAILY 12/07/19 Brivaracetam [Briviact] 50 mg PO BID 12/07/19 Levothyroxine Sodium [Synthroid] 50 mcg PO DAILY 12/07/19 Sertraline [Zoloft] 100 mg PO DAILY 12/07/19 lamoTRIgine [LaMICtal] 200 mg PO BID 12/07/19 lisinopriL 20 mg PO QAM 12/07/19 metFORMIN HCL [Glucophage] 1,000 mg PO BID 12/07/19 Albuterol Sulfate [Albuterol Sulfate Hfa] 1 puff PO RT-Q4H PRN 02/07/23 Docusate Sodium [Dok] 100 mg PO DAILY PRN 02/07/23 Famotidine [Pepcid] 40 mg PO BID 02/07/23 Fenofibrate [Lofibra] 160 mg PO DAILY 02/07/23 Fluticasone Propionate [Flovent Hfa 220 mcg] 2 puff INHALATION RT-BID 02/07/23 Gabapentin [Neurontin] 400 mg PO BID 02/07/23 Insulin NPH Hum/Reg Insulin Hm [humuLIN 70/30 Kwikpen] 18 unit SQ W/SUPPER 02/07/23 Insulin NPH Hum/Reg Insulin Hm [humuLIN 70/30 Kwikpen] 33 unit SQ W/BRKFST 02/07/23 OXcarbazepine [Trileptal] 150 mg PO BID 02/07/23 Propranolol [Inderal] 10 mg PO BID 02/07/23 Tamsulosin HCl [Flomax] 0.4 mg PO HS 02/07/23 lamoTRIgine [LaMICtal] 75 mg PO BID 02/07/23 sitaGLIPtin [Januvia] 100 mg PO DAILY 02/07/23 tiZANidine [Zanaflex] 4 mg PO TID PRN 02/07/23 traZODone HCL 150 mg PO HS 02/07/23 Atorvastatin [Lipitor] 80 mg PO HS #30 tab 02/11/23 Gabapentin [Neurontin] 100 mg PO BID 06/04/23 Controlled Substance Measures - Controlled Substance Measures Is patient prescribed a controlled substance at discharge?: No
== END ==
LOC: PNWHC3 08:58
PROVIDERS: ATTEND Specialist
DX: M51.36 Other intervertebral disc degeneration, lumbar region (principal); F17.200 Nicotine dependence, unspecified, uncomplicated; Z51.81 Encounter for therapeutic drug level monitoring; Z79.82 Long term (current) use of aspirin; Z88.5 Allergy status to narcotic agent; Z88.8 Allergy status to other drugs, medicaments and biological substances
CPT/HCPCS: 80307; G0463; 99212

== ENCOUNTER 2023-08-26 07:47 | Day surgery (SDC) | payer OTHER ==
[2023-08-22 08:57] VITALS: BMI 29.2
[2023-08-26 08:08] VITALS: TEMP 97.6
[2023-08-26 08:08] LABS: Glucose,Whole Blood 157 mg/dL (70-110)
[2023-08-26] MEDS ORDERED: MIDAZOLAM 2 MG/2 ML VIAL ONE (08:13)
[2023-08-26] MEDS ORDERED: ROPIVACAINE 5MG/ML 20ML VIAL ONE (08:13)
--- NOTE | 2023-08-26 08:22 | P.PCN ---
Date of Procedure: 08/26/23 Operative Findings: Procedure: BILATERAL L4-5, L5-S1 #1 Diagnosis: Lumbar spondylosis without myelopathy ANESTHESIA: Medication Administered by: Nurse Sedation Type: Moderate sedation Sedation Supervision start time: 812 Sedation Supervision end time: 820 Imaging: Fluoroscopy was used, images where saved to the medical record The patient was seen and examined in the [facility]. Procedure risks and benefits were fully reviewed with the patient. The patient understands this is diagnostic if local only is used, as will be the case today. The goal of the procedure is to inject medication onto the medial branch or small nerves that innervate the facet joints. In this way, we can hopefully identify which of these joints, if any, may be contributing to their pain. Informed consent for procedure was obtained. The patient was taken into the office fluoroscopy procedure room and placed prone on the table. A pillow was placed under the abdomen to reduce lumbar lordosis. Vital signs were closely monitored during the procedure. The skin over the area was prepped with Betadine X 3 and draped in usual sterile manner. Sterile technique was observed throughout procedure. Under biplanar fluoroscopic guidance, the target injection area of the L4, L5, Sacral Ala were targeted. A 25 gauge 3 1/2 inch spinal needle was then placed at the most medial and superior aspect of the transverse process near the "eye of the Jaylon dog". Aspiration for blood was negative. 1 cc of 0.5% Ropivacaine was injected into the targeted areas separately. [place] were withdrawn intact. No complications were noted during the procedure. The patient tolerated the procedure well. The patient was placed in supine position and transferred to the recovery area for observation and remained stable until discharged home. Home discharge instructions were given to the patient by the staff. The patient will schedule a follow up as directed.
[2023-08-26] MEDS ORDERED: IV FLUID CONTINUATION 900 ML IV ONE (08:26)
[2023-08-26 08:34] VITALS: BP 157/96; PULSE 82; RESP 20
--- NOTE | 2023-08-26 08:39 | FL ---
EXAMINATION TYPE: FL guided pain mgmt statistic DATE OF EXAM: 08/26/2023 FLUOROSCOPY Fluoroscopy time of 9 seconds was used during bilateral lumbar facet blocks. 6 image/s document/s th e procedure. 0.53009 mGycm2 DAP
== END 2023-08-26 08:53 | disposition home or self-care (01) ==
LOC: ORPAIN 07:47
PROVIDERS: ATTEND Hospitalist
DX: M47.816 Spondylosis without myelopathy or radiculopathy, lumbar region (principal); E11.9 Type 2 diabetes mellitus without complications; Z88.5 Allergy status to narcotic agent; Z88.6 Allergy status to analgesic agent; Z88.8 Allergy status to other drugs, medicaments and biological substances; Z79.82 Long term (current) use of aspirin
CPT/HCPCS: 64493; 64494 ×2; 99152; J2250; J2795

== ENCOUNTER → 2023-09-22 | Outpatient (CLI) | payer OTHER ==
[2023-09-22 15:15] LABS: Basophils # (A) 0.07 X 10*3/uL (0.00-0.10); Basophils % (A) 0.8 %; Eosinophils # (A) 0.39 X 10*3/uL (0.04-0.35); Eosinophils % (A) 4.4 %; HCT 45.4 % (39.6-50.0); HGB 15.8 g/dL (13.0-17.0); Lymphocytes # (A) 1.46 X 10*3/uL (0.90-5.00); Lymphocytes % (A) 16.5 %; MCH 31.5 pg (27.0-32.0); MCHC 34.8 g/dL (32.0-37.0); MCV 90.6 FL (80.0-97.0); Mean Platelet Volume 10.2 FL (9.5-12.2); Monocytes # (A) 0.67 X 10*3/uL (0.20-1.00); Monocytes % (A) 7.6 %; NRBC Per 100 WBC 0 X 10*3/uL (0.00-0.01); Neutrophils # (A) 6.21 X 10*3/uL (1.80-7.70); Neutrophils % (A) 69.9 %; Platelet Count 203 X 10*3/uL (140-440); RBC 5.01 X 10*6/uL (4.40-5.60); RDW 13.3 % (11.5-14.5); WBC 8.87 X 10*3/uL (4.50-10.00)
[2023-09-22 15:50] LABS: Blood Urea Nitrogen 7.3 mg/dL (9.0-27.0); Chloride 100 mmol/L (96-109); Glucose 141 mg/dL (70-110); Iron 129 UG/DL (65-175); Potassium 4.4 mmol/L (3.5-5.5); Sodium 139 mmol/L (135-145)
[2023-09-22 15:51] LABS: ALT 37 U/L (10-49); AST 27 U/L (14-35); Albumin 4.3 g/dL (3.8-4.9); Albumin/Globulin Ratio 1.59 Ratio (1.60-3.17); Alkaline Phosphatase 78 U/L (41-126); Calcium 9.6 mg/dL (8.7-10.3); Ferritin 26.7 ng/mL (22.0-322.0); Globulin 2.7 g/dL (1.6-3.3); Prostate Specific Antigen 0.81 ng/mL (0.000-2.500); Total Bilirubin 0.4 mg/dL (0.3-1.2)
[2023-09-23 07:31] LABS: Lamotrigine (Lamictal) 9.5 ug/mL (2.0-15.0)
== END | disposition home or self-care (01) ==
LOC: LABWHC1 11:50
PROVIDERS: ATTEND Psychiatry & Neurology Neurology
DX: Z01.812 Encounter for preprocedural laboratory examination (principal); Z12.5 Encounter for screening for malignant neoplasm of prostate; E61.1 Iron deficiency; E11.65 Type 2 diabetes mellitus with hyperglycemia; E55.9 Vitamin D deficiency, unspecified; E03.9 Hypothyroidism, unspecified; G40.209 Localization-related (focal) (partial) symptomatic epilepsy and epileptic syndromes with complex partial seizures, not intractable, without status epilepticus
CPT/HCPCS: 36415; 80053; 80175; 80183; 82306; 82728; 83036; 83540; 84153; 84443; 85025

== ENCOUNTER → 2023-09-25 | Outpatient (CLI) | payer OTHER ==
[2023-09-25 10:05] VITALS: BP 101/65; PULSE 69; RESP 16; TEMP 97.6
--- NOTE | 2023-09-25 14:51 | P.PAINPG ---
PQRS Measure Charge Sheet Comment: HISTORY OF PRESENT ILLNESS: A 43 yr old male w mother at side presents today w severe and chronic LBP x 2 yrs secondary to DDD, spndylosis and facet arthropathy without myelopathy for evaluation s/p BL MBB L3-L5 #1. Pt states he experienced 100% pain relief x 3 wks s/p procedure. Pt states pain level is provoked at 6 /10 in intensity, constant, localized in the lower lumbar spine, predominantly axial, stabbing in character w occasional shooting pain towards the R hip. Pain is provoked by over activity. Pain is alleviated by PT was years ago, chiropractic treatments semi weekly x 5 wks w last visit in Apr 2023, physician guided home exercises/ stretches daily since Apr 2023, heat, ice, medications, topical, repositioning and rest. Oswestry axial pain score at 23. Interventional procedures include FLORENCE L5-S1 x2, BL MBB L3-L5 x1 Medications include Neurontin, Tyl REVIEW OF ORGAN SYSTEMS: CONSTITUTIONAL: No fevers or chills. No recent weight loss. NEUROLOGICAL: + numbness and tingling along the distal extremities. No seizure disorders or headaches. MUSCULOSKELETAL: + pain PSYCHIATRIC: Denies current depression or suicidal thoughts. Physical Examinations : Constitutional : Cooperative , not in acute distress . Neurologic : Cranial nerve II to XII intact. No focal neurological deficits. Psychiatric : alert & oriented x 3. Matching mood & appropriate affect. Judgment & insight intact. Musculoskeletal : Cervical Spine Motor strength in the deltoid and biceps: Normal right side. Normal Left side Motor strength biceps and the wrist extensors: Normal right side . Normal left side Motor strength in the triceps muscle: N ormal right side. Normal left side Deep tendon reflexes: Normal at the biceps. Normal at Brachioradialis. Normal at triceps Vertebral body tenderness to deep palpation over Cervical facet loading test: positive bilaterally Spurling test: positive bilaterally Neck distraction test: positive bilaterally Eusebia sign: positive bilaterally Lumbar spine Motor strength lower extremities ,thigh and legs 5/5 Right side , 5/5 Left side Deep tendon reflexes : Normal Knee Jerk. Normal Ankle Jerk Vertebral body tenderness Goodwin Test positive Lumbar facet Loading Test: positive Right / positive Left over L4-L5, L5-S1 Range of motion of the lumbar spine Flexion 30 degrees, extension 10 degrees Straight Leg Raise test: Left < Right positive at 35 degrees Tammi test: positive right / positive left. Severe tenderness over the Sacroiliac joint on the Right / Left sides Gaenslen test: positive bilaterally Seated flexion test: positive bilaterally. Sacral spine : Severe tenderness over the Sacroiliac joint: right side / left side Range of motion: Flexion of the lumbar spine <60 degrees Range of motion: Extension of the lumbar spine <20 degrees Gaenslen's Test positive Mohsen's Test positive Tammi test: positive right side / left side Thigh Thrust Test Sacral Thrust Test Imaging: MRI non contrast of the lumbar spine from 01/09/23 reviewed Assessment/ Plan : Lumbar DDD Recommendation of BL MBB L3-L5 #2. May need a series of injections for optimal pain relief. Risks, benefits of procedure discussed and patient verbalized understanding. Protocol for discontinuation/continuation of medications surrounding procedure discussed. Minimal anesthesia provided, including fentanyl and Versed, if clinically indicated. All questions answered. Fax from Dr Grullon's office received on 07/03/23 stated pt no longer wants Neurontin prescribed to him from them because this clinic wont prescribe narcotics to him as he has a narcotic agreement with them. At Jun 2023 visit, stated the Dr Grullon told him to obtain Neurontin and whatever else he needs from this clinic. I discussed w pt that a lateral move to obtain narcotics from a different physician will result on getting a smaller quantity of medications per the new [facility] rules. Pt responded that he'll just go back to Dr Lindsey and tell her "whatever." He also stated he hasn't taken Neurontin "in a while" while [facility] shows he filled it 06/26/23 for a quantity of #60 which he should still have in his possession. Dr Valencia was available by phone for the evaluation of this patient. The time was used to review the medical records including relevant urine studies and Prescription history (MAPs), review of the available imaging, evaluation and examination of the patient, coordination of care with the medical staff and if applicable referring physicians, as well as creation of the medical record PQRS Narrative: Smoking Status Current every day smoker Hx Alcohol Use (MH) Yes Home Medications: Ambulatory Orders Haloperidol Decanoate [Haldol D] 150 mg IM Q21D 07/31/14 Aspirin [Adult Low Dose Aspirin EC] 81 mg PO DAILY 12/07/19 Brivaracetam [Briviact] 50 mg PO BID 12/07/19 Levothyroxine Sodium [Synthroid] 50 mcg PO DAILY 12/07/19 Sertraline [Zoloft] 100 mg PO DAILY 12/07/19 lamoTRIgine [LaMICtal] 200 mg PO BID 12/07/19 lisinopriL 20 mg PO QAM 12/07/19 metFORMIN HCL [Glucophage] 1,000 mg PO BID 12/07/19 Albuterol Sulfate [Albuterol Sulfate Hfa] 1 puff PO RT-Q4H PRN 02/07/23 Docusate Sodium [Dok] 100 mg PO DAILY PRN 02/07/23 Famotidine [Pepcid] 40 mg PO BID 02/07/23 Fenofibrate [Lofibra] 160 mg PO DAILY 02/07/23 Fluticasone Propionate [Flovent Hfa 220 mcg] 2 puff INHALATION RT-BID 02/07/23 Gabapentin [Neurontin] 400 mg PO BID 02/07/23 Insulin NPH Hum/Reg Insulin Hm [humuLIN 70/30 Kwikpen] 18 unit SQ W/SUPPER 02/07/23 Insulin NPH Hum/Reg Insulin Hm [humuLIN 70/30 Kwikpen] 33 unit SQ W/BRKFST 01/14 03/07 OXcarbazepine [Trileptal] 150 mg PO BID 02/07/23 Propranolol [Inderal] 10 mg PO BID 02/07/23 Tamsulosin HCl [Flomax] 0.4 mg PO HS 02/07/23 lamoTRIgine [LaMICtal] 75 mg PO BID 02/07/23 sitaGLIPtin [Januvia] 100 mg PO DAILY 02/07/23 tiZANidine [Zanaflex] 4 mg PO TID PRN 02/07/23 traZODone HCL 150 mg PO HS 02/07/23 Atorvastatin [Lipitor] 80 mg PO HS #30 tab 02/11/23 Gabapentin [Neurontin] 100 mg PO BID 06/04/23 Controlled Substance Measures - Controlled Substance Measures Is patient prescribed a controlled substance at discharge?: No
== END ==
LOC: PNWHC3 09:40
PROVIDERS: ATTEND Specialist
DX: M51.37 Other intervertebral disc degeneration, lumbosacral region (principal); F17.200 Nicotine dependence, unspecified, uncomplicated; Z79.82 Long term (current) use of aspirin; Z88.5 Allergy status to narcotic agent; Z88.8 Allergy status to other drugs, medicaments and biological substances
CPT/HCPCS: 99211

== ENCOUNTER 2023-10-03 07:52 | Day surgery (SDC) | payer OTHER ==
[2023-10-03] MEDS: LACTATED RINGERS 1,000 ML IV SCH ×2 (08:25→08:32)
[2023-10-03] MEDS ORDERED: LIDOCAINE 1% (10MG/ML) FOR IV START INTRADERMA ONE (08:25)
[2023-10-03 08:30] LABS: Glucose,Whole Blood 133 mg/dL (70-110)
[2023-10-03] MEDS ORDERED: fentaNYL (PF) 50 MCG/ML 2 ML AMP ONE (08:34)
[2023-10-03] MEDS ORDERED: MIDAZOLAM 2 MG/2 ML VIAL ONE (08:34)
--- NOTE | 2023-10-03 08:35 | P.PCN ---
Date of Procedure: 10/03/23 Surgeon: Vladimir Lee Pathology: none sent Condition: stable Disposition: PACU Description of Procedure: PREOPERATIVE DIAGNOSIS : 1- Lumbar spondylosis with Facet Arthropathy without myelopathy . 2- Lumber degenerative disc disease POSTOPERATIVE DIAGNOSIS: 1- Lumbar spondylosis with Facet Arthropathy without myelopathy . 2- Lumber degenerative disc disease PROCEDURE: Diagnostic bilateral L4 -5 , and L5-S1 medial branch block under fluoroscopy Physician: Vladimir Lee MD ANESTHESIA: Local with 1% lidocaine;and IV moderate conscious sedation by the anesthesia department EBL: Negligible COMPLICATION: None. PROCEDURE INDICATION: Chronic low back pain secondary to Facet arthropathy unresponsive to conservative treatment. PROCEDURE DESCRIPTION: the patient was seen and identified in the preop holding area , risks and benefits and possible complications of the procedure and alternatives were discussed with the patient, and the patient agreed to proceed with the procedure and signed the consent. IV was started and vital signs monitored during the procedure and fluoroscopy was used to maximize the benefit and accuracy of the needle placement, sedation was given to decrease patient anxiety, patient was taken to the procedure room and placed in prone position vital signs monitored. The patient was brought into the procedure room and placed in prone position. Skin was prepped with Chloraprep and draped in a sterile manner. Lidocaine 1% was used to numb the skin up at the target points that were chosen as follows: at the L5-S1 level which corresponds to the dorsal ramus of L5 the target points were at the superior medial aspect of the sacral ala on each side of the spine on the AP view of fluoroscopy, and for the L3 and L4 medial branches the target points were the connection between the transverse process and the superior articular process of L4 and L5 respectively on the oblique views of fluoroscopy. I used 22-gauge 3-1/2 inch Quincke spinal needles for this procedure and after contacting bone at the target points mentioned above I injected 1 mL of Ropivacaine 0.5% PF . Patient tolerated procedure well. At the end of the procedure the needles removed and a bandage applied after the skin was cleaned the cleaning solution. patient was then taken to the recovery room in stable condition and monitored in the recovery room for 20-30 minutes and discharged home in stable condition after discharge criteria met . A copy of the needle placement picture was saved to the C-arm machine.
[2023-10-03] MEDS ORDERED: ROPIVACAINE 5MG/ML 20ML VIAL ONE (08:37)
[2023-10-03 08:52] VITALS: TEMP 98.1
[2023-10-03] MEDS ORDERED: IV FLUID CONTINUATION 700 ML IV ONE (08:57)
--- NOTE | 2023-10-03 09:04 | FL ---
EXAMINATION TYPE: FL guided pain mgmt statistic DATE OF EXAM: 10/03/2023 CLINICAL HISTORY: Low back pain. Lumbar spondylosis TECHNIQUE: Fluoroscopy. COMPARISON: None. FINDINGS: Fluoroscopic guidance was provided during pain relief procedure performed by Dr. Valencia . A total of 10.5 seconds of fluoroscopic time was utilized during the procedure and 3 spot images a re acquired. Images acquired shows needle localization at several levels in the lumbar spine. IMPRESSION: As Above. TOTAL DAP = 0.68873 mGy x m2.
[2023-10-03 09:17] VITALS: BP 123/82; PULSE 80; RESP 16
== END 2023-10-03 09:25 | disposition home or self-care (01) ==
LOC: ORPAIN 07:52
PROVIDERS: ATTEND Anesthesiology
DX: M51.36 Other intervertebral disc degeneration, lumbar region (principal); M47.816 Spondylosis without myelopathy or radiculopathy, lumbar region; G89.29 Other chronic pain; I10 Essential (primary) hypertension; E78.5 Hyperlipidemia, unspecified; J44.9 Chronic obstructive pulmonary disease, unspecified; F17.200 Nicotine dependence, unspecified, uncomplicated; E11.9 Type 2 diabetes mellitus without complications; F31.9 Bipolar disorder, unspecified; K21.9 Gastro-esophageal reflux disease without esophagitis; Z79.890 Hormone replacement therapy; Z79.84 Long term (current) use of oral hypoglycemic drugs; Z79.4 Long term (current) use of insulin; Z79.899 Other long term (current) drug therapy; Z88.7 Allergy status to serum and vaccine; Z88.8 Allergy status to other drugs, medicaments and biological substances; Z88.5 Allergy status to narcotic agent; Z86.73 Personal history of transient ischemic attack (TIA), and cerebral infarction without residual deficits
CPT/HCPCS: 64493; 64494 ×2; J2250; J3010; J2795

== ENCOUNTER 2023-10-05 20:32 | Emergency (ER) | payer OTHER ==
[2023-10-05] MEDS ORDERED: diphenhydrAMINE 50 MG CAP PO STA (21:18)
[2023-10-05] MEDS ORDERED: LIDOCAINE 4% PATCH TOPICAL STA (21:18)
[2023-10-05] MEDS ORDERED: HYDROmorphone 1 MG/ML 1 ML SYRINGE IM STA (21:18)
--- NOTE | 2023-10-05 21:19 | ED ---
Back Pain HPI - General Chief Complaint: Headache Stated Complaint: Back pain Time Seen by Provider: 10/05/23 20:54 Source: patient, RN notes reviewed, old records reviewed Limitations: no limitations - History of Present Illness Initial Comments: This is a 43-year-old male to the ER for evaluation of back pain today. Patient has history of chronic and severe back pain with recent epidural injections for pain control pain management. Patient states he was recently taken off his pain medications back pain is out of control he currently has no headache, no other complaints pain is not new with no new trauma MD Complaint: back pain, other (Lower back pain back pain history and headache) -: days(s) Similar Symptoms Previously: Yes Place: home Radiation: none Severity: severe Severity scale (1-10): 8 Quality: sharp Consistency: constant Improves With: none Worsens With: none Context: other (Patient had recent lumbar puncture and epidural injection) Associated Symptoms: denies other symptoms Treatments Prior to Arrival: other - Related Data Home Medications Medication Instructions Recorded Confirmed Haloperidol Decanoate [Haldol D] 150 mg IM Q21D 07/31/14 10/03/23 Aspirin [Adult Low Dose Aspirin EC] 81 mg PO DAILY 12/07/19 10/03/23 Brivaracetam [Briviact] 50 mg PO BID 12/07/19 10/03/23 Levothyroxine Sodium [Synthroid] 50 mcg PO DAILY 12/07/19 10/03/23 Sertraline [Zoloft] 100 mg PO DAILY 12/07/19 10/03/23 lamoTRIgine [LaMICtal] 200 mg PO BID 12/07/19 10/03/23 lisinopriL 20 mg PO QAM 12/07/19 10/03/23 metFORMIN HCL [Glucophage] 1,000 mg PO BID 12/07/19 10/03/23 Albuterol Sulfate [Albuterol 1 puff PO RT-Q4H PRN 02/07/23 10/03/23 Sulfate Hfa] Docusate Sodium [Dok] 100 mg PO DAILY PRN 02/07/23 10/03/23 Famotidine [Pepcid] 40 mg PO BID 02/07/23 10/03/23 Fenofibrate [Lofibra] 160 mg PO DAILY 02/07/23 10/03/23 Fluticasone Propionate [Flovent 2 puff INHALATION RT-BID 02/07/23 10/03/23 Hfa 220 mcg] Gabapentin [Neurontin] 400 mg PO BID 02/07/23 10/03/23 Insulin NPH Hum/Reg Insulin Hm 18 unit SQ W/SUPPER 02/07/23 10/03/23 [humuLIN 70/30 Kwikpen] Insulin NPH Hum/Reg Insulin Hm 33 unit SQ W/BRKFST 02/07/23 10/03/23 [humuLIN 70/30 Kwikpen] OXcarbazepine [Trileptal] 150 mg PO BID 02/07/23 10/03/23 Propranolol [Inderal] 10 mg PO BID 02/07/23 10/03/23 Tamsulosin HCl [Flomax] 0.4 mg PO HS 02/07/23 10/03/23 lamoTRIgine [LaMICtal] 75 mg PO BID 02/07/23 10/03/23 sitaGLIPtin [Januvia] 100 mg PO DAILY 02/07/23 10/03/23 tiZANidine [Zanaflex] 4 mg PO TID PRN 02/07/23 10/03/23 traZODone HCL 150 mg PO HS 02/07/23 10/03/23 Gabapentin [Neurontin] 100 mg PO BID 06/04/23 10/03/23 Previous Rx's Medication Instructions Recorded Atorvastatin [Lipitor] 80 mg PO HS #30 tab 02/11/23 Acetaminophen with Codeine 1 tab PO Q6H PRN 3 Days #12 tab 10/08/23 [Tylenol #4 Tablet] Allergies Allergy/AdvReac Type Severity Reaction Status Date / Time hydrocodone Allergy hives, Verified 10/06/23 22:17 nausea and vomiting ketorolac [From Toradol] Allergy Abdominal Verified 10/06/23 22:17 Pain mirtazapine [From Remeron] Allergy Abdominal Verified 10/06/23 22:17 Pain pioglitazone [From Actos] Allergy Abdominal Verified 10/06/23 22:17 Pain Review of Systems ROS Statement: Those systems with pertinent positive or pertinent negative responses have been documented in the HPI. ROS Other: All systems not noted in ROS Statement are negative. Past Medical History Past Medical History: Asthma, Chest Pain / Angina, COPD, CVA/TIA, Diabetes Mellitus, GERD/Reflux, Hyperlipidemia, Hypertension, Seizure Disorder, Skin Disorder Additional Past Medical History / Comment(s): IDDM type II, grand mal seizures- "last seizure yrs ago", coughing from cigarettes, hemorrhoid, constipation/diarrhea, hx psoriasis, eczema, back pain, hydrocele. 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, [facility] foot surgery, sternum partially removed/muscle flap, lumbar puncture 10/03/23 Past Anesthesia/Blood Transfusion Reactions: No Reported Reaction Past Psychological History: Anxiety, Bipolar, Depression, Panic Disorder, Schizophrenia Smoking Status: Current every day smoker, Light tobacco smoker Past Alcohol Use History: Rare Past Drug Use History: None Reported - Past Family History Sister(s) Family Medical History: Cancer Mother Family Medical History: Cancer Father Family Medical History: Cancer General Exam Limitations: no limitations General appearance: alert, in no apparent distress Head exam: Present: atraumatic, normocephalic, normal inspection Eye exam: Present: normal appearance, PERRL, EOMI. Absent: scleral icterus, conjunctival injection, periorbital swelling ENT exam: Present: normal exam, mucous membranes moist Neck exam: Present: normal inspection. Absent: tenderness, meningismus, lymphadenopathy Respiratory exam: Present: normal lung sounds bilaterally. Absent: respiratory distress, wheezes, rales, rhonchi, stridor Cardiovascular Exam: Present: regular rate, normal rhythm, normal heart sounds. Absent: systolic murmur, diastolic murmur, rubs, gallop, clicks GI/Abdominal exam: Present: soft, normal bowel sounds. Absent: distended, tenderness, guarding, rebound, rigid Extremities exam: Present: normal inspection, full ROM, normal capillary refill. Absent: tenderness, pedal edema, joint swelling, calf tenderness Back exam: Present: normal inspection Neurological exam: Present: alert, oriented X3, CN II-XII intact Psychiatric exam: Present: normal affect, normal mood Skin exam: Present: warm, dry, intact, normal color. Absent: rash Course Vital Signs 10/05/23 10/05/23 20:47 22:19 Temperature 97.9 F 98.6 F Pulse Rate 90 84 Respiratory 20 18 Rate Blood Pressure 122/86 118/82 O2 Sat by Pulse 97 99 Oximetry - Reevaluation(s) Reevaluation #1: Medical records reviewed Reevaluation #2: Patient symptoms are improved Reevaluation #3: Patient informed of results questions answered Reevaluation #4: Was pt. sent in by a medical professional or institution (, [facility], SUPERVIS[employer], urgent care, hospital, or penitentiary...) When possible be specific @ -no Did you speak to anyone other than the patient for history (EMS, parent, family, police, friend...)? What history was obtained from this source @ -no Did you review nursing and triage notes (agree or disagree)? Why? @ -agree Are old charts reviewed (outside hosp., previous admission, EMS record, old EKG, old radiological studies, urgent care reports/EKG's, penitentiary records)? Report findings @ -yes Differential Diagnosis (chest pain, altered mental status, abdominal pain women, abdominal pain men, vaginal bleeding, weakness, fever, dyspnea, syncope, headache, dizziness, GI bleed, back pain, seizure, CVA, palpatations, mental health, musculoskeletal)? @ -prior EKG interpreted by me (3pts min.). @ -no X-rays interpreted by me (1pt min.). @ -no CT interpreted by me (1pt min.). @ -no U/S interpreted by me (1pt. min.). @ -no What testing was considered but not performed or refused? (CT, X-rays, U/S, labs)? Why? @ -none What meds were considered but not given or refused? Why? @ -none Did you discuss the management of the patient with other professionals (professionals i.e. ADILSON Veliz, SUPERVIS[employer], lab, RT, psych nurse, psychiatric social worker, blister packing machine tender, teacher, production officer, case packer and sealer)? Give summary @ -no Was smoking cessation discussed for >3mins.? @ -no Were there social determinants of health that impacted care today? How? (Homelessness, low income, unemployed, alcoholism, drug addiction, transportation, low edu. Level, literacy, decrease access to med. care, usp, rehab)? @ -none Was there de-escalation of care discussed even if they declined (Discuss DNR or withdrawal of care, Hospice)? DNR status @ -no What co-morbidities impacted this encounter? (DM, HTN, Smoking, COPD, CAD, Cancer, CVA, ARF, Chemo, Hep., AIDS, mental health diagnosis, sleep apnea, morbid obesity)? @ -none Was patient admitted / discharged? Hospital course, mention meds given and route, prescriptions, significant lab abnormalities, going to OR and other pertinent info. @ - 43 male to ER with lower back pain and headache. Patient has pain controlled while here in the ER and is okay for discharge home, patient did recently have epidural injection for pain control Discharge Was critical care preformed (if so, how long)? @ -no Undiagnosed new problem with uncertain prognosis? @ -no Drug Therapy requiring intensive monitoring for toxicity (Heparin, Nitro, Insulin, Cardizem)? @ -no Were any procedures done? @ -no Diagnosis/symptom? @ -Chronic back pain Acute, or Chronic, or Acute on Chronic? @ -Acute Uncomplicated (without systemic symptoms) or Complicated (systemic symptoms)? @ -Complicated Side effects of treatment? @ -no Exacerbation, Progression, or Severe Exacerbation? @ -exacerbation Poses a threat to life or bodily function? How? (Chest pain, [place], [place], pneumonia, PE, COPD, DKA, ARF, appy, cholecystitis, CVA, Diverticulitis, Homicidal, Suicidal, threat to staff... and all critical care pts) @ -Yes post lumbar puncture headache Reevaluation #5: Differential Back Pain: Strain, zoster, cauda equina syndrome, epidural abscess, vertebral osteomyelitis, discitis, fracture, subluxation, disc herniation, DJD, spinal stenosis, dissection, AAA, pancreatitis, peptic ulcer disease, pyelonephritis, kidney stone, this is not meant to be an all-inclusive list. Medical Decision Making - Medical Decision Making 43 male to ER with lower back pain and headache. Patient has pain controlled while here in the ER and is okay for discharge home, patient did recently have epidural injection for pain control Disposition Clinical Impression: Back pain Disposition: HOME SELF-CARE Condition: Good Instructions (If sedation given, give patient instructions): Chronic Back Pain (DC), Back Pain (ED) Is patient prescribed a controlled substance at d/c from ED?: No Referrals: Mohsen Shipman [Primary Care Provider] - 1-2 days Time of Disposition: 22:00
[2023-10-05 22:28] VITALS: BP 118/82; PULSE 84; RESP 18; TEMP 98.6
== END 2023-10-05 22:21 | disposition home or self-care (01) ==
LOC: EC 20:32
DX: G89.29 Other chronic pain (principal); M54.50 Low back pain, unspecified; E11.9 Type 2 diabetes mellitus without complications; E78.5 Hyperlipidemia, unspecified; I10 Essential (primary) hypertension; K21.9 Gastro-esophageal reflux disease without esophagitis; F17.200 Nicotine dependence, unspecified, uncomplicated; J44.89 Other specified chronic obstructive pulmonary disease; F41.9 Anxiety disorder, unspecified; F31.9 Bipolar disorder, unspecified; Z79.899 Other long term (current) drug therapy; Z79.4 Long term (current) use of insulin; Z79.51 Long term (current) use of inhaled steroids; Z79.84 Long term (current) use of oral hypoglycemic drugs; Z79.890 Hormone replacement therapy; Z79.82 Long term (current) use of aspirin; Z88.5 Allergy status to narcotic agent; Z88.8 Allergy status to other drugs, medicaments and biological substances
CPT/HCPCS: 96372 ×2; 99283 ×2; J1170

== ENCOUNTER 2023-10-06 21:55 | Emergency (ER) | payer OTHER ==
[2023-10-06 22:26] VITALS: TEMP 98.4
--- NOTE | 2023-10-07 00:10 | ED ---
Back Pain HPI - General Chief Complaint: Back Pain/Injury Stated Complaint: Back Pain-post surgery Time Seen by Provider: 10/06/23 23:08 Source: patient Limitations: no limitations - History of Present Illness Initial Comments: 43-year-old male with a past medical history significant for chronic back pain presenting to the ED with a chief complaint of back pain. Patient notes that he seeds epidural injections for back pain. His last injection was on 10/03/23. Ports since then he is been having worsening pain of his back is now having pain going down his hip as well. Denies fever or chills. No weakness. No other complaints. No incontinence or saddle anesthesia. - Related Data Home Medications Medication Instructions Recorded Confirmed Haloperidol Decanoate [Haldol D] 150 mg IM Q21D 07/31/14 10/03/23 Aspirin [Adult Low Dose Aspirin EC] 81 mg PO DAILY 12/07/19 10/03/23 Brivaracetam [Briviact] 50 mg PO BID 12/07/19 10/03/23 Levothyroxine Sodium [Synthroid] 50 mcg PO DAILY 12/07/19 10/03/23 Sertraline [Zoloft] 100 mg PO DAILY 12/07/19 10/03/23 lamoTRIgine [LaMICtal] 200 mg PO BID 12/07/19 10/03/23 lisinopriL 20 mg PO QAM 12/07/19 10/03/23 metFORMIN HCL [Glucophage] 1,000 mg PO BID 12/07/19 10/03/23 Albuterol Sulfate [Albuterol 1 puff PO RT-Q4H PRN 02/07/23 10/03/23 Sulfate Hfa] Docusate Sodium [Dok] 100 mg PO DAILY PRN 02/07/23 10/03/23 Famotidine [Pepcid] 40 mg PO BID 02/07/23 10/03/23 Fenofibrate [Lofibra] 160 mg PO DAILY 02/07/23 10/03/23 Fluticasone Propionate [Flovent 2 puff INHALATION RT-BID 02/07/23 10/03/23 Hfa 220 mcg] Gabapentin [Neurontin] 400 mg PO BID 02/07/23 10/03/23 Insulin NPH Hum/Reg Insulin Hm 18 unit SQ W/SUPPER 02/07/23 10/03/23 [humuLIN 70/30 Kwikpen] Insulin NPH Hum/Reg Insulin Hm 33 unit SQ W/BRKFST 02/07/23 10/03/23 [humuLIN 70/30 Kwikpen] OXcarbazepine [Trileptal] 150 mg PO BID 02/07/23 10/03/23 Propranolol [Inderal] 10 mg PO BID 02/07/23 10/03/23 Tamsulosin HCl [Flomax] 0.4 mg PO HS 02/07/23 10/03/23 lamoTRIgine [LaMICtal] 75 mg PO BID 02/07/23 10/03/23 sitaGLIPtin [Januvia] 100 mg PO DAILY 02/07/23 10/03/23 tiZANidine [Zanaflex] 4 mg PO TID PRN 02/07/23 10/03/23 traZODone HCL 150 mg PO HS 02/07/23 10/03/23 Gabapentin [Neurontin] 100 mg PO BID 06/04/23 10/03/23 Previous Rx's Medication Instructions Recorded Atorvastatin [Lipitor] 80 mg PO HS #30 tab 02/11/23 Allergies Allergy/AdvReac Type Severity Reaction Status Date / Time hydrocodone Allergy hives, Verified 10/06/23 22:17 nausea and vomiting ketorolac [From Toradol] Allergy Abdominal Verified 10/06/23 22:17 Pain mirtazapine [From Remeron] Allergy Abdominal Verified 10/06/23 22:17 Pain pioglitazone [From Actos] Allergy Abdominal Verified 10/06/23 22:17 Pain Review of Systems ROS Statement: Those systems with pertinent positive or pertinent negative responses have been documented in the HPI. ROS Other: All systems not noted in ROS Statement are negative. Past Medical History Past Medical History: Asthma, Chest Pain / Angina, COPD, CVA/TIA, Diabetes Mellitus, GERD/Reflux, Hyperlipidemia, Hypertension, Seizure Disorder, Skin Disorder Additional Past Medical History / Comment(s): IDDM type II, grand mal seizures- "last seizure yrs ago", coughing from cigarettes, hemorrhoid, constipation/diarrhea, hx psoriasis, eczema, back pain, hydrocele. 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, [facility] foot surgery, sternum partially removed/muscle flap, lumbar puncture 10/03/23 Past Anesthesia/Blood Transfusion Reactions: No Reported Reaction Past Psychological History: Anxiety, Bipolar, Depression, Panic Disorder, Schizophrenia Smoking Status: Current every day smoker, Light tobacco smoker Past Alcohol Use History: Rare Past Drug Use History: None Reported - Past Family History Sister(s) Family Medical History: Cancer Mother Family Medical History: Cancer Father Family Medical History: Cancer General Exam Limitations: no limitations General appearance: alert, in no apparent distress Eye exam: Present: normal appearance Neck exam: Present: normal inspection Respiratory exam: Present: normal lung sounds bilaterally Cardiovascular Exam: Present: regular rate, normal rhythm GI/Abdominal exam: Present: soft Extremities exam: Present: other (Strength and sensation equal and intact of bilateral upper and lower extremities.) Neurological exam: Present: alert, oriented X3 Course Vital Signs 10/06/23 10/07/23 22:10 01:22 Temperature 98.4 F Pulse Rate 77 78 Respiratory 16 17 Rate Blood Pressure 114/67 134/91 O2 Sat by Pulse 98 98 Oximetry Medical Decision Making - Medical Decision Making Was pt. sent in by a medical professional or institution ([facility]IL[facility] Veliz, SERVICE EMPLOYEE, urgent care, hospital, or alf...) When possible be specific @ -No Did you speak to anyone other than the patient for history (EMS, parent, family, police, friend...)? What history was obtained from this source @ -No Did you review nursing and triage notes (agree or disagree)? Why? @ -I reviewed and agree with nursing and triage notes Were old charts reviewed (outside hosp., previous admission, EMS record, old EKG, old radiological studies, urgent care reports/EKG's, alf records)? Report findings @ -Chart reviewed showing recent fluoroscopic guided epidural injection. Differential Diagnosis (chest pain, altered mental status, abdominal pain women, abdominal pain men, vaginal bleeding, weakness, fever, dyspnea, syncope, head ache, dizziness, GI bleed, back pain, seizure, CVA, palpatations, mental health, musculoskeletal)? @ -Differential Musculoskeletal Muscular strain, contusion, ligament sprain, fracture, arthritis, septic arthritis, bursitis, cellulitis, muscle spasm, nerve compression, DVT, arterial occlusion, herpes zoster, electrolyte abnormality, tumor.... This is not meant to be in all inclusive list EKG interpreted by me (3pts min.). @ -None X-rays interpreted by me (1pt min.). @ -None done CT interpreted by me (1pt min.). @ -CT of the cervical, thoracic, lumbar spine Are by me showed no evidence of acute finding. U/S interpreted by me (1pt. min.). @ -None done What testing was considered but not performed or refused? (CT, X-rays, U/S, labs)? Why? @ -None What meds were considered but not given or refused? Why? @ -None Did you discuss the management of the patient with other professionals (professionals i.e. , PA, SERVICE EMPLOYEE, lab, RT, psych nurse, social problems specialist, line driver, teacher, rating officer, field nurse case manager)? Give summary @ -Case discussed with Dr. Jacob herrera at this time patient is stable for discharge and outpatient follow-up. Was smoking cessation discussed for >3mins.? @ -No Was critical care preformed (if so, how long)? @ -No Were there social determinants of health that impacted care today? How? (Homelessness, low income, unemployed, alcoholism, drug addiction, transportation, low edu. Level, literacy, decrease access to med. care, fdc, rehab)? @ -No Was there de-escalation of care discussed even if they declined (Discuss DNR or withdrawal of care, Hospice)? DNR status @ -No What co-morbidities impacted this encounter? (DM, HTN, Smoking, COPD, CAD, Cancer, CVA, ARF, Chemo, Hep., AIDS, mental health diagnosis, sleep apnea, mo rbid obesity)? @ -None Was patient admitted / discharged? Hospital course, mention meds given and route, prescriptions, significant lab abnormalities, going to OR and other pertinent info. @ -Discharge 43-year-old male presenting to the ED with a chief complaint of back pain. Patient notes history of chronic back pain and receives epidural injections for this. Therefore computed tomography scan obtained. No evidence of epidural abscess or other acute findings. Laboratory studies reviewed. Labs including CBC, CMP, PE, ESR unremarkable. Patient discharged home in stable condition with referral to see orthopedics. Discussed return precautions with patient who verbalized agreement. Undiagnosed new problem with uncertain prognosis? @ -No Drug Therapy requiring intensive monitoring for toxicity (Heparin, Nitro, Insulin, Cardizem)? @ -No Were any procedures done? @ -No Diagnosis/symptom? @ -Back pain Acute, or Chronic, or Acute on Chronic? @ -Acute on chronic Uncomplicated (without systemic symptoms) or Complicated (systemic symptoms)? @ -Uncomplicated Side effects of treatment? @ -No Exacerbation, Progression, or Severe Exacerbation? @ -No Poses a threat to life or bodily function? How? (Chest pain, [place], [place], pneumonia, PE, COPD, DKA, ARF, appy, cholecystitis, CVA, Diverticulitis, Homicidal, Suicid al, threat to staff... and all critical care pts) @ -No - Lab Data Result diagrams: 10/07/23 00:14 10/07/23 00:14 Lab Results 10/07/23 10/07/23 Range/Units 00:14 00:14 WBC 9.6 (3.8-10.6) k/uL RBC 4.91 (4.30-5.90) m/uL Hgb 15.5 (13.0-17.5) gm/dL Hct 44.4 (39.0-53.0) % MCV 90.4 (80.0-100.0) fL MCH 31.7 (25.0-35.0) pg MCHC 35.0 (31.0-37.0) g/dL RDW 13.4 (11.5-15.5) % Plt Count 194 (150-450) k/uL MPV 7.7 Neutrophils % 63 % Lymphocytes % 23 % Monocytes % 7 % Eosinophils % 4 % Basophils % 1 % Neutrophils # 6.0 (1.3-7.7) k/uL Lymphocytes # 2.2 (1.0-4.8) k/uL Monocytes # 0.7 (0-1.0) k/uL Eosinophils # 0.4 (0-0.7) k/uL Basophils # 0.1 (0-0.2) k/uL Sodium 139 (137-145) mmol/L Potassium 4.3 (3.5-5.1) mmol/L Chloride 102 (98-107) mmol/L Carbon Dioxide 30 (22-30) mmol/L Anion Gap 7 mmol/L BUN 17 (9-20) mg/dL Creatinine 0.82 (0.66-1.25) mg/dL Est GFR (CKD-EPI)AfAm >90 (>60 ml/min/1.73 sqM) Est GFR (CKD-EPI)NonAf >90 (>60 ml/min/1.73 sqM) Glucose 126 H (74-99) mg/dL Calcium 10.4 H (8.4-10.2) mg/dL Total Bilirubin 0.5 (0.2-1.3) mg/dL AST 31 (17-59) U/L ALT 33 (4-49) U/L Alkaline Phosphatase 67 (38-126) U/L C-Reactive Protein <0.5 (<1.0) mg/dL Total Protein 7.6 (6.3-8.2) g/dL Albumin 4.4 (3.5-5.0) g/dL Disposition Clinical Impression: Back pain Disposition: HOME SELF-CARE Condition: Good Additional Instructions: Please return to the Emergency Department if symptoms worsen or any other concerns. Please follow up with orthopedics. Is patient prescribed a controlled substance at d/c from ED?: No Referrals: Mohsen Shipman [Primary Care Provider] - 1-2 days Ju James DO [Doctor of Osteopathic Medicine] - 1-2 days Time of Disposition: 02:09
[2023-10-07 00:39] LABS: Basophils # (A) 0.1 k/uL (0-0.2); Basophils % (A) 1 %; Eosinophils # (A) 0.4 k/uL (0-0.7); Eosinophils % (A) 4 %; HCT 44.4 % (39.0-53.0); HGB 15.5 gm/dL (13.0-17.5); Lymphocytes # (A) 2.2 k/uL (1.0-4.8); Lymphocytes % (A) 23 %; MCH 31.7 pg (25.0-35.0); MCV 90.4 fL (80.0-100.0); Mean Platelet Volume 7.7; Monocytes # (A) 0.7 k/uL (0-1.0); Monocytes % (A) 7 %; Neutrophils % (A) 63 %; Platelet Count 194 k/uL (150-450); RBC 4.91 m/uL (4.30-5.90); RDW 13.4 % (11.5-15.5); WBC 9.6 k/uL (3.8-10.6)
[2023-10-07 00:55] LABS: ALT 33 U/L (4-49); AST 31 U/L (17-59); African American GFR (CKD) >90 (>60 ml/min/1.73 sqM); Albumin 4.4 g/dL (3.5-5.0); Alkaline Phosphatase 67 U/L (38-126); Anion Gap 7 mmol/L; Blood Urea Nitrogen 17 mg/dL (9-20); C Reactive Protein <0.5 mg/dL (<1.0); Calcium 10.4 mg/dL (8.4-10.2); Carbon Dioxide 30 mmol/L (22-30); Chloride 102 mmol/L (98-107); Glucose 126 mg/dL (74-99); Non-African American GFR(CKD) >90 (>60 ml/min/1.73 sqM); Potassium 4.3 mmol/L (3.5-5.1); Sodium 139 mmol/L (137-145); Total Bilirubin 0.5 mg/dL (0.2-1.3); Total Protein 7.6 g/dL (6.3-8.2)
[2023-10-07] MEDS ORDERED: HYDROmorphone 1 MG/ML 1 ML SYRINGE IVP STA ×2 (00:55→02:13)
[2023-10-07 01:46] VITALS: BP 134/91; PULSE 78; RESP 17
--- NOTE | 2023-10-07 01:57 | CT ---
EXAM: CT Cervical Spine Without Intravenous Contrast CLINICAL HISTORY: ITS.REASON CT Reason: Hx epidural injections worsening back pain and TECHNIQUE: Axial computed tomography images of the cervical spine without intravenous contrast. CTDI is 8.6 mGy and DLP is 619.4 mGy-cm. This CT exam was performed using one or more of the following dose reduction techniques: automated exposure control, adjustment of the mA and/or kV according to patient size, and/or use of iterative reconstruction technique. COMPARISON: No relevant prior studies available. FINDINGS: Vertebrae: No acute fracture. Discs/spinal canal/neural foramina: degenerative changes. Soft tissues: No prevertebral swelling. IMPRESSION: No fluid collection. No acute findings in the spine. EXAM: CT Thoracic Spine Without Intravenous Contrast CLINICAL HISTORY: ITS.REASON CT Reason: Hx epidural injections worsening back pain and TECHNIQUE: Axial computed tomography images of the thoracic spine without intravenous contrast. CTDI is 8.6 mGy and DLP is 619.4 mGy-cm. This CT exam was performed using one or more of the following dose reduction techniques: automated exposure control, adjustment of the mA and/or kV according to patient size, and/or use of iterative reconstruction technique. COMPARISON: No relevant prior studies available. FINDINGS: Vertebrae: No acute fracture. No subluxation. Discs/spinal canal/neural foramina: No spinal canal stenosis. Soft tissues: Unremarkable. IMPRESSION: No acute findings. EXAM: CT Lumbar Spine Without Intravenous Contrast CLINICAL HISTORY: ITS.REASON CT Reason: Hx epidural injections worsening back pain and TECHNIQUE: Axial computed tomography images of the lumbar spine without intravenous contrast. CTDI is 8.6 mGy and DLP is 619.4 mGy-cm. This CT exam was performed using one or more of the following dose reduction techniques: automated exposure control, adjustment of the mA and/or kV according to patient size, and/or use of iterative reconstruction technique. COMPARISON: No relevant prior studies available. FINDINGS: Vertebrae: No acute fracture. No subluxation. Discs/spinal canal/neural foramina: No significant spinal canal stenosis. Soft tissues: Unremarkable. Colonic diverticulosis. Thickened rectosigmoid colon partially visualized. IMPRESSION: No fluid collection. No acute findings in the spine. Colonic diverticulosis. Thickened rectosigmoid colon partially visualized. Consider CT abdomen pelvis.
[2023-10-07] MEDS ORDERED: traMADol 50 MG STARTER PACK 3 TAB BTL PO STA (02:13)
[2023-10-07 02:34] LABS: Appearance,Urine Clear (Clear); Bilirubin,Urine Negative (Negative); Blood,Urine Negative (Negative); Color,Urine Colorless; Glucose,Urine (UA) Negative (Negative); Ketones,Urine Negative (Negative); Leukocyte Esterase,Urine Negative (Negative); Nitrite,Urine Negative (Negative); PH, Urine 6.5 (5.0-8.0); Protein,Urine Negative (Negative); Urobilinogen,Urine <2.0 mg/dL (<2.0)
[2023-10-07 02:43] LABS: Specific Gravity,Urine >1.050 (1.001-1.035)
[2023-10-07 10:42] LABS: Erythrocyte Sedimentation Rate 13 mm/Hr (0-15)
== END 2023-10-07 02:21 | disposition home or self-care (01) ==
LOC: EC 21:55
DX: G89.29 Other chronic pain (principal); M54.9 Dorsalgia, unspecified; E11.9 Type 2 diabetes mellitus without complications; I10 Essential (primary) hypertension; J44.89 Other specified chronic obstructive pulmonary disease; K21.9 Gastro-esophageal reflux disease without esophagitis; G40.409 Other generalized epilepsy and epileptic syndromes, not intractable, without status epilepticus; F31.9 Bipolar disorder, unspecified; F20.9 Schizophrenia, unspecified; F41.9 Anxiety disorder, unspecified; F17.210 Nicotine dependence, cigarettes, uncomplicated; Z79.4 Long term (current) use of insulin; Z79.82 Long term (current) use of aspirin; Z79.51 Long term (current) use of inhaled steroids; Z79.84 Long term (current) use of oral hypoglycemic drugs; Z79.899 Other long term (current) drug therapy; Z86.73 Personal history of transient ischemic attack (TIA), and cerebral infarction without residual deficits; Z88.5 Allergy status to narcotic agent; Z88.6 Allergy status to analgesic agent; Z88.8 Allergy status to other drugs, medicaments and biological substances
CPT/HCPCS: 36415; 80053; 85652; 85025; 86140; 81003; 72129; 72126; 72132; 99284; 96374; J1170; Q9967

== ENCOUNTER 2023-10-22 20:47 | Emergency (ER) | payer OTHER ==
[2023-10-22 21:04] VITALS: TEMP 98.3
--- NOTE | 2023-10-22 22:01 | ED ---
General Adult HPI - General Chief complaint: Back Pain/Injury Stated complaint: back pain Time Seen by Provider: 10/22/23 21:03 Source: patient, RN notes reviewed Mode of arrival: ambulatory Limitations: no limitations - History of Present Illness Initial comments: 43-year-old male presents to the emergency department for evaluation of low back pain. He states that this is a chronic issue for which he follows with pain management. He gets epidural steroid injection. The last injection was on 29 September. He is scheduled for 30 October for further injections. He reports that this helps initially. He denies any new symptoms but states that he takes his Wet[place] and it makes him vomit so he is hoping for pain control. He denies loss of bowel or bladder function, saddle anesthesia, urinary retention, fever, chills. Denies any new trauma. - Related Data Home Medications Medication Instructions Recorded Confirmed Haloperidol Decanoate [Haldol D] 150 mg IM Q21D 07/31/14 10/03/23 Aspirin [Adult Low Dose Aspirin EC] 81 mg PO DAILY 12/07/19 10/03/23 Brivaracetam [Briviact] 50 mg PO BID 12/07/19 10/03/23 Levothyroxine Sodium [Synthroid] 50 mcg PO DAILY 12/07/19 10/03/23 Sertraline [Zoloft] 100 mg PO DAILY 12/07/19 10/03/23 lamoTRIgine [LaMICtal] 200 mg PO BID 12/07/19 10/03/23 lisinopriL 20 mg PO QAM 12/07/19 10/03/23 metFORMIN HCL [Glucophage] 1,000 mg PO BID 12/07/19 10/03/23 Albuterol Sulfate [Albuterol 1 puff PO RT-Q4H PRN 02/07/23 10/03/23 Sulfate Hfa] Docusate Sodium [Dok] 100 mg PO DAILY PRN 02/07/23 10/03/23 Famotidine [Pepcid] 40 mg PO BID 02/07/23 10/03/23 Fenofibrate [Lofibra] 160 mg PO DAILY 02/07/23 10/03/23 Fluticasone Propionate [Flovent 2 puff INHALATION RT-BID 02/07/23 10/03/23 Hfa 220 mcg] Gabapentin [Neurontin] 400 mg PO BID 02/07/23 10/03/23 Insulin NPH Hum/Reg Insulin Hm 18 unit SQ W/SUPPER 02/07/23 10/03/23 [humuLIN 70/30 Kwikpen] Insulin NPH Hum/Reg Insulin Hm 33 unit SQ W/BRKFST 02/07/23 10/03/23 [humuLIN 70/30 Kwikpen] OXcarbazepine [Trileptal] 150 mg PO BID 02/07/23 10/03/23 Propranolol [Inderal] 10 mg PO BID 02/07/23 10/03/23 Tamsulosin HCl [Flomax] 0.4 mg PO HS 02/07/23 10/03/23 lamoTRIgine [LaMICtal] 75 mg PO BID 02/07/23 10/03/23 sitaGLIPtin [Januvia] 100 mg PO DAILY 02/07/23 10/03/23 tiZANidine [Zanaflex] 4 mg PO TID PRN 02/07/23 10/03/23 traZODone HCL 150 mg PO HS 02/07/23 10/03/23 Gabapentin [Neurontin] 100 mg PO BID 06/04/23 10/03/23 Previous Rx's Medication Instructions Recorded Atorvastatin [Lipitor] 80 mg PO HS #30 tab 02/11/23 Acetaminophen with Codeine 1 tab PO Q6H PRN 3 Days #12 tab 10/08/23 [Tylenol #4 Tablet] HYDROcodone/APAP 10-325MG [Wetmore 1 tab PO Q6H PRN #15 tab 10/22/23 10-325] Allergies Allergy/AdvReac Type Severity Reaction Status Date / Time hydrocodone Allergy hives, Verified 10/06/23 22:17 nausea and vomiting ketorolac [From Toradol] Allergy Abdominal Verified 10/06/23 22:17 Pain mirtazapine [From Remeron] Allergy Abdominal Verified 10/06/23 22:17 Pain pioglitazone [From Actos] Allergy Abdominal Verified 10/06/23 22:17 Pain acetaminophen AdvReac Nausea & Verified 10/22/23 20:52 [From Tylenol-Codeine #3] Vomiting codeine AdvReac Nausea & Verified 10/22/23 20:52 [From Tylenol-Codeine #3] Vomiting Review of Systems ROS Statement: Those systems with pertinent positive or pertinent negative responses have been documented in the HPI. ROS Other: All systems not noted in ROS Statement are negative. Past Medical History Past Medical History: Asthma, Chest Pain / Angina, COPD, CVA/TIA, Diabetes Mellitus, GERD/Reflux, Hyperlipidemia, Hypertension, Seizure Disorder, Skin Disorder Additional Past Medical History / Comment(s): IDDM type II, grand mal seizures- "last seizure yrs ago", coughing from cigarettes, hemorrhoid, constipation/diarrhea, hx psoriasis, eczema, back pain, hydrocele. 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, [facility] foot surgery, sternum partially removed/muscle flap, lumbar puncture 10/03/23 Past Anesthesia/Blood Transfusion Reactions: No Reported Reaction Past Psychological History: Anxiety, Bipolar, Depression, Panic Disorder, Schizophrenia Smoking Status: Current every day smoker, Light tobacco smoker Past Alcohol Use History: Rare Past Drug Use History: None Reported - Past Family History Sister(s) Family Medical History: Cancer Mother Family Medical History: Cancer Father Family Medical History: Cancer General Exam Limitations: no limitations General appearance: alert, in no apparent distress Head exam: Present: atraumatic, normocephalic, normal inspection Eye exam: Present: normal appearance, PERRL, EOMI. Absent: scleral icterus, conjunctival injection, periorbital swelling ENT exam: Present: normal exam, mucous membranes moist Neck exam: Present: normal inspection. Absent: tenderness, meningismus, lympha denopathy Respiratory exam: Present: normal lung sounds bilaterally. Absent: respiratory distress, wheezes, rales, rhonchi, stridor Cardiovascular Exam: Present: regular rate, normal rhythm, normal heart sounds. Absent: systolic murmur, diastolic murmur, rubs, gallop, clicks Extremities exam: Present: normal inspection, full ROM, normal capillary refill, other (DP and PT pulses 2+, no lower extremity edema). Absent: tenderness, pedal edema, joint swelling, calf tenderness Back exam: Present: normal inspection, full ROM. Absent: tenderness Neurological exam: Present: alert, oriented X3 Psychiatric exam: Present: normal affect, normal mood Skin exam: Present: warm, dry, intact, normal color. Absent: rash Course Vital Signs 10/22/23 10/22/23 20:49 22:31 Temperature 98.3 F Pulse Rate 84 85 Respiratory 24 18 Rate Blood Pressure 118/80 127/83 O2 Sat by Pulse 98 98 Oximetry Medical Decision Making - Medical Decision Making Was pt. sent in by a medical professional or institution (, PA, SHUTTLE FINAL INSPECTOR, urgent care, hospital, or retirement...) When possible be specific @ -No Did you speak to anyone other than the patient for history (EMS, parent, family, police, friend...)? What history was obtained from this source @ -No Did you review nursing and triage notes (agree or disagree)? Why? @ -I reviewed and agree with nursing and triage notes Were old charts reviewed (outside hosp., previous admission, EMS record, old EKG, old radiological studies, urgent care reports/EKG's, retirement records)? Report findings @ -No old charts were reviewed Differential Diagnosis (chest pain, altered mental status, abdominal pain women, abdominal pain men, vaginal bleeding, weakness, fever, dyspnea, syncope, headache, dizziness, GI bleed, back pain, seizure, CVA, palpatations, mental health, musculoskeletal)? @ -Differential Back Pain: Strain, zoster, cauda equina syndrome, epidural abscess, vertebral osteomyelitis, discitis, fracture, subluxation, disc herniation, DJD, spinal stenosis, dissection, AAA, pancreatitis, peptic ulcer disease, pyelonephritis, kidney stone, this is not meant to be an all-inclusive list. EKG interpreted by me (3pts min.). @ -None X-rays interpreted by me (1pt min.). @ -None done CT interpreted by me (1pt min.). @ -None done U/S interpreted by me (1pt. min.). @ -None done What testing was considered but not performed or refused? (CT, X-rays, U/S, labs)? Why? @ -Imaging was considered, patient has had CT scans of his back following his symptoms starting and he has had no changes What meds were considered but not given or refused? Why? @ -None Did you discuss the management of the patient with other professionals (professionals i.e. , PA, SHUTTLE FINAL INSPECTOR, lab, RT, psych nurse, dialysis social worker, spoke maker, teacher, environmental protection officer, case briefer)? Give summary @ -No Was smoking cessation discussed for >3mins.? @ -No Was critical care preformed (if so, how long)? @ -No Were there social determinants of health that impacted care today? How? (Homelessness, low income, unemployed, alcoholism, drug addiction, transportation, low edu. Level, literacy, decrease access to med. care, senior living, rehab)? @ -No Was there de-escalation of care discussed even if they declined (Discuss DNR or withdrawal of care, Hospice)? DNR status @ -No What co-morbidities impacted this encounter? (DM, HTN, Smoking, COPD, CAD, Cancer, CVA, ARF, Chemo, Hep., AIDS, mental health diagnosis, sleep apnea, morbid obesity)? @ -None Was patient admitted / discharged? Hospital course, mention meds given and route, prescriptions, significant lab abnormalities, going to OR and other pertinent info. @ -Discharge. Patient presents to the emergency department for evaluation of low back pain. He denies any new trauma. No red flag symptoms at this time as listed in HPI. He has had CT scans of his back since the symptoms started. Patient states that he is attempted to take his Wetmore at home but vomits it up. Patient is hoping for pain control at this time. Patient was provided dose of IM medication and given a lidocaine patch for his symptoms. Advised to follow- up with his pain management clinic as scheduled on the . Patient stable at time of discharge. Case discussed with Dr. Stevens. Undiagnosed new problem with uncertain prognosis? @ -No Drug Therapy requiring intensive monitoring for toxicity (Heparin, Nitro, Insulin, Cardizem)? @ -No Were any procedures done? @ -No Diagnosis/symptom? @ -Back pain Acute, or Chronic, or Acute on Chronic? @ -Chronic Uncomplicated (without systemic symptoms) or Complicated (systemic symptoms)? @ -Uncomplicated Side effects of treatment? @ -No Exacerbation, Progression, or Severe Exacerbation? @ -No Poses a threat to life or bodily function? How? (Chest pain, [place], [place], pneumonia, PE, COPD, DKA, ARF, appy, cholecystitis, CVA, Diverticulitis, Homicidal, Suicidal, threat to staff... and all critical care pts) @ -No Disposition Clinical Impression: Chronic low back pain Disposition: HOME SELF-CARE Condition: Stable Instructions (If sedation given, give patient instructions): Chronic Back Pain (DC) Additional Instructions: Please follow up with your pain specialists. Return to the emergency department for new or worsening symptoms. Prescriptions: HYDROcodone/APAP 10-325MG [Wetmore 10-325] 1 tab PO Q6H PRN #15 tab PRN Reason: pain Is patient prescribed a controlled substance at d/c from ED?: No Referrals: Mohsen Shipman [Primary Care Provider] - 1-2 days
[2023-10-22] MEDS: HYDROmorphone 1 MG/ML 1 ML SYRINGE IM STA (22:26)
[2023-10-22] MEDS: LIDOCAINE 4% PATCH TOPICAL ONE (22:26)
[2023-10-22 22:53] VITALS: BP 127/83; PULSE 85; RESP 18
== END 2023-10-22 22:33 | disposition home or self-care (01) ==
LOC: EC 20:47
DX: G89.29 Other chronic pain (principal); M54.50 Low back pain, unspecified; J44.89 Other specified chronic obstructive pulmonary disease; E11.9 Type 2 diabetes mellitus without complications; E78.5 Hyperlipidemia, unspecified; I10 Essential (primary) hypertension; F41.9 Anxiety disorder, unspecified; F31.9 Bipolar disorder, unspecified; F17.200 Nicotine dependence, unspecified, uncomplicated; Z79.82 Long term (current) use of aspirin; Z79.84 Long term (current) use of oral hypoglycemic drugs; Z79.899 Other long term (current) drug therapy; Z79.4 Long term (current) use of insulin; Z88.5 Allergy status to narcotic agent; Z88.8 Allergy status to other drugs, medicaments and biological substances
CPT/HCPCS: 99283; 96372; J1170

== ENCOUNTER → 2023-10-30 | Outpatient (CLI) | payer OTHER ==
[2023-10-30 09:52] VITALS: BP 116/78; PULSE 99; RESP 16; TEMP 97.6
--- NOTE | 2023-10-30 13:40 | P.PAINPG ---
PQRS Measure Charge Sheet Comment: HISTORY OF PRESENT ILLNESS: A 43 yr old male presents today w severe and chronic LBP x 2 yrs secondary to DDD, spndylosis and facet arthropathy without myelopathy for evaluation s/p BL MBB L3-L5 #2. Pt states he experienced 0 % pain relief s/p procedure. Pt states pain level is provoked at 7 /10 in intensity, constant, localized in the lower lumbar spine, predominantly axial, stabbing in character without shooting pain. Pain is provoked by over activity. Pain is alleviated by PT was years ago, chiropractic treatments semi weekly x 5 wks w last visit in Apr 2023, physician guided home exercises/ stretches daily since Apr 2023, heat, ice, medications, topical, repositioning and rest. Oswestry axial pain score at 23. Interventional procedures include FLORENCE L5-S1 x2, BL MBB L3-L5 x2 Medications include Neurontin, Tyl REVIEW OF ORGAN SYSTEMS: CONSTITUTIONAL: No fevers or chills. No recent weight loss. NEUROLOGICAL: + numbness and tingling along the distal extremities. No seizure disorders or headaches. MUSCULOSKELETAL: + pain PSYCHIATRIC: Denies current depression or suicidal thoughts. Physical Examinations : Constitutional : Cooperative , not in acute distress . Neurologic : Cranial nerve II to XII intact. No focal neur ological deficits. Psychiatric : alert & oriented x 3. Matching mood & appropriate affect. Judgment & insight intact. Musculoskeletal : Cervical Spine Motor strength in the deltoid and biceps: Normal right side. Normal Left side Motor strength biceps and the wrist extensors: Normal right side . Normal left side Motor strength in the triceps muscle: Normal right side. Normal left side Deep tendon reflexes: Normal at the biceps. Normal at Brachioradialis. Normal at triceps Vertebral body tenderness to deep palp ation over Cervical facet loading test: positive bilaterally Spurling test: positive bilaterally Neck distraction test: positive bilaterally Eusebia sign: positive bilaterally Lumbar spine Motor strength lower extremities ,thigh and legs 5/5 Right side , 5/5 Left side Deep tendon reflexes : Normal Knee Jerk. Normal Ankle Jerk Vertebral body tenderness L5 Goodwin Test positive L5-S1 Lumbar facet Loading Test: positive Right / positive Left Range of motion of the lumbar spine Flexion 30 degrees, extension 10 degrees Straight Leg Raise test: Left < Right positive at 35 degrees Tammi test: positive right / positive left. Severe tenderness over the Sacroiliac joint on the Right / Left sides Gaenslen test: positive bilaterally Seated flexion test: positive bilaterally. Sacral spine : Severe tenderness over the Sacroiliac joint: right side / left side Range of motion: Flexion of the lumbar spine <60 degrees Range of motion: Extension of the lumbar spine <20 degrees Gaenslen's Test positive Mohsen's Test positive Tammi test: positive right side / left side Thigh Thrust Test Sacral Thrust Test Imaging: MRI non contrast of the lumbar spine from 01/09/23 reviewed Assessment/ Plan : Lumbar DDD Recommendation of FLORENCE L5-S1 #3. May need a series of injections for optimal pain relief. Risks, benefits of procedure discussed and patient verbalized understanding. Protocol for discontinuation/continuation of medications surrounding procedure discussed. All questions answered. Fax from Dr Grullon's office received on 07/03/23 stated pt no longer wants Neurontin prescribed to him from them because this clinic wont prescribe narcotics to him as he has a narcotic agreement with them. At Jun 2023 visit, stated the Dr Grullon told him to obtain Neurontin and whatever else he needs from this clinic. I discussed w pt that a lateral move to obtain narcotics from a different physician will result on getting a smaller quantity of medications per the new [facility] rules. Pt responded that he'll just go back to Dr Lindsey and tell her "whatever." He also stated he hasn't taken Neurontin "in a while" while [facility] shows he filled it 06/26/23 for a quantity of #60 which he should still have in his possession. Dr Valencia was available by phone for the evaluation of this patient. The time was used to review the medical records including relevant urine studies and Prescription history (MAPs), review of the available imaging, evaluation and examination of the patient, coordination of care with the medical staff and if applicable referring physicians, as well as creation of the medical record PQRS Narrative: Smoking Status Current every day smoker Hx Alcohol Use (MH) Yes Home Medications: Ambulatory Orders Haloperidol Decanoate [Haldol D] 150 mg IM Q21D 07/31/14 Aspirin [Adult Low Dose Aspirin EC] 81 mg PO DAILY 12/07/19 Brivaracetam [Briviact] 50 mg PO BID 12/07/19 Levothyroxine Sodium [Synthroid] 50 mcg PO DAILY 12/07/19 Sertraline [Zoloft] 100 mg PO DAILY 12/07/19 lamoTRIgine [LaMICtal] 200 mg PO BID 12/07/19 lisinopriL 20 mg PO QAM 12/07/19 metFORMIN HCL [Glucophage] 1,000 mg PO BID 12/07/19 Albuterol Sulfate [Albuterol Sulfate Hfa] 1 puff PO RT-Q4H PRN 02/07/23 Docusate Sodium [Dok] 100 mg PO DAILY PRN 02/07/23 Famotidine [Pepcid] 40 mg PO BID 02/07/23 Fenofibrate [Lofibra] 160 mg PO DAILY 02/07/23 Fluticasone Propionate [Flovent Hfa 220 mcg] 2 puff INHALATION RT-BID 02/07/23 Gabapentin [Neurontin] 400 mg PO BID 02/07/23 Insulin NPH Hum/Reg Insulin Hm [humuLIN 70/30 Kwikpen] 18 unit SQ W/SUPPER 02/07/23 Insulin NPH Hum/Reg Insulin Hm [humuLIN 70/30 Kwikpen] 33 unit SQ W/BRKFST 02/07/23 OXcarbazepine [Trileptal] 150 mg PO BID 02/07/23 Propranolol [Inderal] 10 mg PO BID 02/07/23 Tamsulosin HCl [Flomax] 0.4 mg PO HS 02/07/23 lamoTRIgine [LaMICtal] 75 mg PO BID 02/07/23 sitaGLIPtin [Januvia] 100 mg PO DAILY 02/07/23 tiZANidine [Zanaflex] 4 mg PO TID PRN 02/07/23 traZODone HCL 150 mg PO HS 02/07/23 Atorvastatin [Lipitor] 80 mg PO HS #30 tab 02/11/23 Gabapentin [Neurontin] 100 mg PO BID 06/04/23 Acetaminophen with Codeine [Tylenol #4 Tablet] 1 tab PO Q6H PRN 3 Days #12 tab 10/08/23 Controlled Substance Measures - Controlled Substance Measures Is patient prescribed a controlled substance at discharge?: No
== END ==
LOC: PNWHC3 09:21
PROVIDERS: ATTEND Specialist
DX: M51.37 Other intervertebral disc degeneration, lumbosacral region (principal); M47.817 Spondylosis without myelopathy or radiculopathy, lumbosacral region; F17.200 Nicotine dependence, unspecified, uncomplicated; Z79.82 Long term (current) use of aspirin; Z88.5 Allergy status to narcotic agent; Z88.8 Allergy status to other drugs, medicaments and biological substances; Z88.1 Allergy status to other antibiotic agents
CPT/HCPCS: 99211

== ENCOUNTER 2023-11-06 06:07 | Day surgery (SDC) | payer OTHER ==
[2023-11-03 16:44] VITALS: BMI 25.0
[2023-11-06] MEDS ORDERED: LACTATED RINGERS 1,000 ML IV SCH (06:15)
[2023-11-06 06:29] LABS: Glucose,Whole Blood 97 mg/dL (70-110)
[2023-11-06 06:51] VITALS: TEMP 98.4
[2023-11-06] MEDS ORDERED: methylPREDNISolone ACETATE 40 MG/ML 1 ML VIAL ONE (07:01)
[2023-11-06] MEDS ORDERED: IOPAMIDOL M200 10 ML VIAL ONE (07:01)
--- NOTE | 2023-11-06 07:12 | P.PCN ---
Date of Procedure: 11/06/23 Procedure(s) Performed: PREOPERATIVE DIAGNOSIS: 1- Lumbar Degenerative Disc Diseases 2-Lumbar spondylosis with Facet arthropathy without myelopathy. POSTOPERATIVE DIAGNOSIS: 1-lumbar degenerative disc disease. 2-lumbar spondylosis with facet arthropathy without myelopathy. PROCEDURE 1. Lumbar epidural steroid injection under fluoroscopic guidance at the L5-S1 level. (Fluoroscopy imaging was available in radiology department) 2. Lumbar epidurogram. ANESTHESIA: Lidocaine 1% 3 and then only. EBL: Minimal PROCEDURE INDICATION: The patient with low back pain and radiculitis symptoms unresponsive to conservative treatment. Fluoroscopy was used to optimize visualization of the needle placement and to maximize safety. PROCEDURE DESCRIPTION / TECHNIQUE: The patient was seen and identified in the preoperative area. Risks, benefits, complications including but not limited to infections ,bleeding ,allergic reaction to the medications ,nerve damage and not complete pain releife , and alternatives were discussed with the patient. The patient agreed to proceed with the procedure and signed the consent, and vital signs were stable. Patient was taken to the OR and time out was completed. The patient was placed in the prone position on procedure table and a pillow was placed under the ab domen to reduce lumbar lordosis. The lumbosacral area was prepped and draped in the usual sterile fashion.ere closely monitored during the procedure. Vital signs was monitered during the entire procedure. Using anterior-posterior fluoroscopy, the L5-S1 interlaminar space was identified and the skin over this site was marked and then infiltrated with 1% lidocaine subcutaneously. Subsequently, a 20-gauge Tuohy epidural needle was inserted and advanced toward the epidural space using the ``Loss of resistance technique and guided by AP and lateral fluoroscopy. The correct needle position in the epidural space was verified with the injection of 2 mL of the water soluble contrast dye Isovue 300 contrast and observing an excellent epidurogram with the epidural spread of the dye, after negative aspiration for blood and CSF and in the absence of paresthesias. Again after negative aspiration, a 4 ml mixture containing 40 mg of Depo-medrol ( Preservetive Free ), and 2 ml of preservative free Normal Saline, and 2 ml of preservative free lidocaine 1% solution was injected and a washout of epidurogram was seen. Needle was withdrawn intact, skin was cleansed, and bandages were applied. COMPLICATIONS: None DISPOSITION / PLANS: The patient was placed in a supine position and transferred to the recovery area in a stable condition for observation. There was no evidence of lower extremity motor or sensory deficit after the procedure. Patient was discharged from the recovery room after meeting discharge criteria. Home discharge instructions were given to the patient by the staff. The patient was reexamined prior to discharge. The patient will schedule a follow up in the clinic in 2-4 weeks.
[2023-11-06 07:22] VITALS: BP 127/77; PULSE 86; RESP 16
--- NOTE | 2023-11-06 08:08 | FL ---
Fluoroscopy INDICATION: Pain FINDINGS: Fluoroscopy time: 0.2 seconds. Total dose area product (DAP) in uGy*m?, mGy*cm? (or similar): 0.91453 Images obtained: 2. IMPRESSION: 1. Documentation of fluoroscopy.
== END 2023-11-06 07:29 | disposition home or self-care (01) ==
LOC: ORPAIN 06:07
PROVIDERS: ATTEND Specialist
DX: M51.16 Intervertebral disc disorders with radiculopathy, lumbar region (principal); M47.26 Other spondylosis with radiculopathy, lumbar region; E11.9 Type 2 diabetes mellitus without complications; Z79.82 Long term (current) use of aspirin; Z88.5 Allergy status to narcotic agent; Z88.6 Allergy status to analgesic agent; Z88.3 Allergy status to other anti-infective agents; Z91.09 Other allergy status, other than to drugs and biological substances
CPT/HCPCS: 62323; J1030; Q9966

== ENCOUNTER → 2023-11-27 | Outpatient (CLI) | payer OTHER ==
[2023-11-27 10:00] VITALS: BP 126/86; PULSE 77; RESP 16; TEMP 98.6
--- NOTE | 2023-11-27 12:51 | P.PAINPG ---
PQRS Measure Charge Sheet Comment: HISTORY OF PRESENT ILLNESS: A 43 yr old male presents today w severe and chronic LBP x 2 yrs secondary to DDD, spndylosis and facet arthropathy without myelopathy for evaluation s/p FLORENCE L4-L5 #3. Pt states he experienced 70 % pain relief x 2 wks s/p procedure. Pt states pain level is provoked at 7 /10 in intensity, constant, localized in the lower lumbar spine, predominantly axial, stabbing in character without shooting pain. Pain is provoked by over activity. Pain is alleviated by PT was years ago, chiropractic treatments semi weekly x 5 wks w last visit in Apr 2023, physician guided home exercises/ stretches daily since Apr 2023, heat, ice, medications, topical, repositioning and rest. Oswestry axial pain score at 23. Interventional procedures include FLORENCE L5-S1 x3, BL MBB L3-L5 x2 Medications include Neurontin, Tyl REVIEW OF ORGAN SYSTEMS: CONSTITUTIONAL: No fevers or chills. No recent weight loss. NEUROLOGICAL: + numbness and tingling along the distal extremities. No seizure disorders or headaches. MUSCULOSKELETAL: + pain PSYCHIATRIC: Denies current depression or suicidal thoughts. Physical Examinations : Constitutional : Cooperative , not in acute distress . Neurologic : Cranial nerve II to XII intact. No focal neurological deficits. Psychiatric : alert & oriented x 3. Matching mood & appropriate affect. Judgment & insight intact. Musculoskeletal : Cervical Spine Motor strength in the deltoid and biceps: Normal right side. Normal Left side Motor strength biceps and the wrist extensors: Normal right side . Normal left side Motor strength in the triceps muscle: Normal right side. Normal left side Deep tendon reflexes: Normal at the biceps. Normal at Brachioradialis. Normal at triceps Vertebral body tenderness to deep palpation over Cervical facet loading test: positive bilaterally Spurling test: positive bilaterally Neck distraction test: positive bilaterally Eusebia sign: positive bilaterally Lumbar spine Motor strength lower extremities ,thigh and legs 5/5 Right side , 5/5 Left side Deep tendon reflexes : Normal Knee J erk. Normal Ankle Jerk Vertebral body tenderness L5 Goodwin Test positive L5-S1 Lumbar facet Loading Test: positive Right / positive Left Range of motion of the lumbar spine Flexion 30 degrees, extension 10 degrees Straight Leg Raise test: Left < Right positive at 35 degrees Tammi test: positive right / positive left. Severe tenderness over the Sacroiliac joint on the Right / Left sides Ailinlen test: positive bilaterally Seated flexion test: positive bilaterally. Sacral spine : Severe tenderness over the Sacroiliac joint: right side / left side Range of motion: Flexion of the lumbar spine <60 degrees Range of motion: Extension of the lumbar spine <20 degrees Gaenslen's Test positive Mohsen's Test positive Tammi test: positive right side / left side Thigh Thrust Test Sacral Thrust Test Imaging: MRI non contrast of the lumbar spine from 01/09/23 reviewed Assessment/ Plan : Lumbar DDD Has been referred to a Neurosurgeon. Will also refer to an orthopedic surgeon to explore additional treatment options. Will manage residual pain and may RTC on an as needed basis. All questions answered. Fax from Dr Grullon's office received on 07/03/23 stated pt no longer wants Neurontin prescribed to him from them because this clinic wont prescribe narcotics to him as he has a narcotic agreement with them. At Jun 2023 visit, stated the Dr Grullon told him to obtain Neurontin and whatever else he needs from this clinic. I discussed w pt that a lateral move to obtain narcotics from a different physician will result on getting a smaller quantity of medications per the new [facility] rules. Pt responded that he'll just go back to Dr Lindsey and tell her "whatever." He also stated he hasn't taken Neurontin "in a while" while MAPS shows he filled it 06/26/23 for a quantity of #60 which he should still have in his possession. Dr Valencia was available by phone for the evaluation of this patient. The time was used to review the medical records including relevant urine studies and Prescription history (MAPs), review of the available imaging, evaluation and examination of the patient, coordination of care with the medical staff and if applicable referring physicians, as well as creation of the medical record PQRS Narrative: Smoking Status Current every day smoker Hx Alcohol Use (MH) Yes Home Medications: Ambulatory Orders Haloperidol Decanoate [Haldol D] 150 mg IM Q21D 07/31/14 Aspirin [Adult Low Dose Aspirin EC] 81 mg PO DAILY 12/07/19 Brivaracetam [Briviact] 50 mg PO BID 12/07/19 Levothyroxine Sodium [Synthroid] 50 mcg PO DAILY 12/07/19 Sertraline [Zoloft] 100 mg PO DAILY 12/07/19 lamoTRIgine [LaMICtal] 200 mg PO BID 12/07/19 lisinopriL 20 mg PO QAM 12/07/19 metFORMIN HCL [Glucophage] 1,000 mg PO BID 12/07/19 Albuterol Sulfate [Albuterol Sulfate Hfa] 1 puff PO RT-Q4H PRN 02/07/23 Docusate Sodium [Dok] 100 mg PO DAILY PRN 02/07/23 Famotidine [Pepcid] 40 mg PO BID 02/07/23 Fenofibrate [Lofibra] 160 mg PO DAILY 02/07/23 Fluticasone Propionate [Flovent Hfa 220 mcg] 2 puff INHALATION RT-BID 02/07/23 Gabapentin [Neurontin] 400 mg PO TID 02/07/23 Insulin NPH Hum/Reg Insulin Hm [humuLIN 70/30 Kwikpen] 18 unit SQ W/SUPPER 02/07/23 Insulin NPH Hum/Reg Insulin Hm [humuLIN 70/30 Kwikpen] 33 unit SQ W/BRKFST 02/07/23 OXcarbazepine [Trileptal] 150 mg PO BID 02/07/23 Propranolol [Inderal] 10 mg PO BID 02/07/23 Tamsulosin HCl [Flomax] 0.4 mg PO HS 02/07/23 lamoTRIgine [LaMICtal] 75 mg PO BID 02/07/23 sitaGLIPtin [Januvia] 100 mg PO DAILY 02/07/23 tiZANidine [Zanaflex] 4 mg PO TID PRN 02/07/23 traZODone HCL 150 mg PO HS 02/07/23 Atorvastatin [Lipitor] 80 mg PO HS #30 tab 02/11/23 [place]-3/Dha/Epa/Fish Oil [Fish Oil 1,000 mg Softgel] 1 each PO TID 11/03/23 Controlled Substance Measures - Controlled Substance Measures Is patient prescribed a controlled substance at discharge?: No
== END ==
LOC: PNWHC3 09:23
PROVIDERS: ATTEND Specialist
DX: M51.37 Other intervertebral disc degeneration, lumbosacral region (principal); F17.200 Nicotine dependence, unspecified, uncomplicated; Z79.82 Long term (current) use of aspirin; Z88.5 Allergy status to narcotic agent; Z88.8 Allergy status to other drugs, medicaments and biological substances; Z88.1 Allergy status to other antibiotic agents
CPT/HCPCS: 99211

== ENCOUNTER → 2023-12-15 | Outpatient (CLI) | payer OTHER ==
--- NOTE | 2023-12-17 18:46 | MR ---
EXAMINATION TYPE: MR lumbar spine wo con DATE OF EXAM: 12/15/2023 7:43 PM CLINICAL INDICATION:Male, 43 years old with history of M47.816,M54.16 RADICULOPATHY, LUMBAR REGION,M5 4.5; Low back pain into right side COMPARISON: CT 10/07/2023. TECHNIQUE: Multi planar, multi sequence imaging was performed utilizing: T1-weighted, T2-weighted, a nd turbo inversion recovery imaging of the lumbar spine. IV Contrast: (None if empty) FINDINGS: Alignment: The lumbar vertebral bodies have preserved heights and alignment. Cord: The conus medullaris and the distal spinal cord appear unremarkable with regards to their signa l intensity and morphology. Bones/Discs: Mild degeneration changes throughout the spine with osteophyte formation and facet joint arthropathy. Mild inversion recovery signal at the level of L3 on the left compatible with degenerat ion reactive changes on CT 10/07/2023. T12-L1: No evidence of significant spinal canal stenosis or neural foraminal stenosis. L1-L2: No evidence of significant spinal canal stenosis or neural foraminal stenosis. L2-L3: No evidence of significant spinal canal stenosis or neural foraminal stenosis. L3-L4: No evidence of significant spinal canal stenosis. Facet joint arthropathy mild bilateral neura l foraminal stenosis. L4-L5: Disc bulge and facet joint arthropathy result in mild spinal canal and mild bilateral neural f oraminal stenosis. L5-S1: Disc bulge and facet joint arthropathy result in mild spinal canal and mild bilateral neural f oraminal stenosis. No significant spinal canal or neural foraminal stenosis in the remainder of the visualized levels. Other findings: None. IMPRESSION: 1. No definitive evidence of disc herniation or significant spinal canal stenosis. 2. Mild disc degeneration with associated osteoarthritic changes. Findings worse with some mild reac tive bony edema within the left superior L3 vertebral body. No evidence for significant neural forami nal stenosis.
== END | disposition home or self-care (01) ==
LOC: RADMRIMAIN 18:39
PROVIDERS: ATTEND Orthopaedic Surgery
DX: M51.16 Intervertebral disc disorders with radiculopathy, lumbar region (principal); M47.816 Spondylosis without myelopathy or radiculopathy, lumbar region; R60.9 Edema, unspecified
CPT/HCPCS: 72148

== ENCOUNTER → 2024-01-09 | Outpatient (CLI) | payer OTHER ==
--- NOTE | 2024-01-09 13:04 | US ---
EXAMINATION TYPE: US venous doppler duplex LE LT DATE OF EXAM: 01/09/2024 12:46 PM COMPARISON: NONE CLINICAL INDICATION: Male, 43 years old with history of I82.409 ACUTE EMBOLISM AND THOMBOS UNSP DEEP VN UN; pain in calf, no h/o dvt SIDE PERFORMED: Left TECHNIQUE: The lower extremity deep venous system is examined utilizing real time linear array sonog gregorio with graded compression, doppler sonography and color-flow sonography. VESSELS IMAGED: Common Femoral Vein Deep Femoral Vein Greater Saphenous Vein * Femoral Vein Popliteal Vein Small Saphenous Vein * Proximal Calf Veins (* superficial vessels) Left Leg: Negative for DVT IMPRESSION: Grayscale, color doppler, spectral doppler imaging performed of the deep veins of the lo wer extremities. There is normal flow, compressibility, vascular waveforms.
== END | disposition home or self-care (01) ==
LOC: RADUSWWP 12:27
PROVIDERS: ATTEND Podiatrist Foot & Ankle Surgery
DX: I82.402 Acute embolism and thrombosis of unspecified deep veins of left lower extremity (principal)

== ENCOUNTER 2024-01-24 11:12 | Emergency (ER) | payer OTHER ==
--- NOTE | 2024-01-24 11:40 | ED ---
Extremity Problem HPI - General Chief complaint: Extremity Problem,Nontraumatic Stated complaint: post op L foot pain Source: patient Mode of arrival: wheelchair Limitations: no limitations - History of Present Illness Initial comments: This is a 43-year-old male presents emergency department chief complaint of left foot pain. Patient underwent orthopedic bone scraping procedure on 04 January. States that he has been having moderate to severe pain over this time and has had difficulty with ambulation. Patient states that he is unable to get in with a pain specialist and he will February 13. He denies fevers, nausea, vomiting, shortness of breath. Patient does have a history of MRSA infection, and states that when the blood screening procedure was completed today removed cyst on the bone. - Related Data Home Medications Medication Instructions Recorded Confirmed Haloperidol Decanoate [Haldol D] 150 mg IM Q21D 07/31/14 11/27/23 Aspirin [Adult Low Dose Aspirin EC] 81 mg PO DAILY 12/07/19 11/27/23 Brivaracetam [Briviact] 50 mg PO BID 12/07/19 11/27/23 Levothyroxine Sodium [Synthroid] 50 mcg PO DAILY 12/07/19 11/27/23 Sertraline [Zoloft] 100 mg PO DAILY 12/07/19 11/27/23 lamoTRIgine [LaMICtal] 200 mg PO BID 12/07/19 11/27/23 lisinopriL 20 mg PO QAM 12/07/19 11/27/23 metFORMIN HCL [Glucophage] 1,000 mg PO BID 12/07/19 11/27/23 Albuterol Sulfate [Albuterol 1 puff PO RT-Q4H PRN 02/07/23 11/27/23 Sulfate Hfa] Docusate Sodium [Dok] 100 mg PO DAILY PRN 02/07/23 11/27/23 Famotidine [Pepcid] 40 mg PO BID 02/07/23 11/27/23 Fenofibrate [Lofibra] 160 mg PO DAILY 02/07/23 11/27/23 Fluticasone Propionate [Flovent 2 puff INHALATION RT-BID 02/07/23 11/27/23 Hfa 220 mcg] Gabapentin [Neurontin] 400 mg PO TID 02/07/23 11/27/23 Insulin NPH Hum/Reg Insulin Hm 18 unit SQ W/SUPPER 02/07/23 11/27/23 [humuLIN 70/30 Kwikpen] Insulin NPH Hum/Reg Insulin Hm 33 unit SQ W/BRKFST 02/07/23 11/27/23 [humuLIN 70/30 Kwikpen] OXcarbazepine [Trileptal] 150 mg PO BID 02/07/23 11/27/23 Propranolol [Inderal] 10 mg PO BID 02/07/23 11/27/23 Tamsulosin HCl [Flomax] 0.4 mg PO HS 02/07/23 11/27/23 lamoTRIgine [LaMICtal] 75 mg PO BID 02/07/23 11/27/23 sitaGLIPtin [Januvia] 100 mg PO DAILY 02/07/23 11/27/23 tiZANidine [Zanaflex] 4 mg PO TID PRN 02/07/23 11/27/23 traZODone HCL 150 mg PO HS 02/07/23 11/27/23 [place]-3/Dha/Epa/Fish Oil [Fish Oil 1 each PO TID 11/03/23 11/27/23 1,000 mg Softgel] Previous Rx's Medication Instructions Recorded Atorvastatin [Lipitor] 80 mg PO HS #30 tab 02/11/23 HYDROcodone/APAP 10-325MG [[place] 1 tab PO Q6HR PRN 3 Days #12 tab 01/24/24 10-325] clindamycin HCL 300 mg PO QID #40 cap 01/24/24 Allergies Allergy/AdvReac Type Severity Reaction Status Date / Time hydrocodone Allergy hives, Verified 01/24/24 11:19 nausea and vomiting ketorolac [From Toradol] Allergy Abdominal Verified 01/24/24 11:19 Pain mirtazapine [From Remeron] Allergy Abdominal Verified 01/24/24 11:19 Pain pioglitazone [From Actos] Allergy Abdominal Verified 01/24/24 11:19 Pain acetaminophen AdvReac Nausea & Verified 01/24/24 11:19 [From Tylenol-Codeine #3] Vomiting codeine AdvReac Nausea & Verified 01/24/24 11:19 [From Tylenol-Codeine #3] Vomiting Review of Systems ROS Statement: Those systems with pertinent positive or pertinent negative responses have been documented in the HPI. ROS Other: All systems not noted in ROS Statement are negative. Past Medical History Past Medical History: Asthma, Chest Pain / Angina, COPD, CVA/TIA, Diabetes Mellitus, GERD/Reflux, Hyperlipidemia, Hypertension, Seizure Disorder, Skin Disorder Additional Past Medical History / Comment(s): IDDM type II, grand mal seizures- "last seizure yrs ago", coughing from cigarettes, hemorrhoid, constipation/diarrhea, hx psoriasis, eczema, back pain, hydrocele. 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, [facility] foot surgery, sternum partially removed/muscle flap, lumbar puncture 10/03/23 Past Anesthesia/Blood Transfusion Reactions: No Reported Reaction Past Psychological History: Anxiety, Bipolar, Depression, Panic Disorder, Schizophrenia Smoking Status: Current every day smoker, Light tobacco smoker Past Alcohol Use History: Occasional Past Drug Use History: None Reported - Past Family History Sister(s) Family Medical History: Cancer Mother Family Medical History: Cancer Father Family Medical History: Cancer General Exam Limitations: no limitations General appearance: alert, in no apparent distress Head exam: Present: atraumatic, normocephalic, normal inspection Eye exam: Present: normal appearance, PERRL, EOMI. Absent: scleral icterus, conjunctival injection, periorbital swelling ENT exam: Present: normal exam, mucous membranes moist Neck exam: Present: normal inspection. Absent: tenderness, meningismus, lymphadenopathy Respiratory exam: Present: normal lung sounds bilaterally. Absent: respiratory distress, wheezes, rales, rhonchi, stridor Cardiovascular Exam: Present: regular rate, normal rhythm, normal heart sounds. Absent: systolic murmur, diastolic murmur, rubs, gallop, clicks GI/Abdominal exam: Present: soft, normal bowel sounds. Absent: distended, tenderness, guarding, rebound, rigid Left Foot/Toe exam: Present: tenderness, swelling, laceration (lateral foot). A bsent: abrasion, ecchymosis, deformity, crepitus, dislocation Neurovascular tendon exam: Present: no vascular compromise. Absent: pulse deficit, abnormal cap refill, motor deficit, sensory deficit Back exam: Present: normal inspection Neurological exam: Present: alert, oriented X3, CN II-XII intact Psychiatric exam: Present: normal affect, normal mood Skin exam: Present: warm, dry, intact, normal color. Absent: rash Course Vital Signs 01/24/24 11:17 Temperature 98.5 F Pulse Rate 96 Respiratory 20 Rate Blood Pressure 123/81 O2 Sat by Pulse 99 Oximetry Medical Decision Making - Medical Decision Making Was pt. sent in by a medical professional or institution (, PA, WAREHOUSE UNLOADER, urgent care, hospital, or detention...) When possible be specific @ -No Did you speak to anyone other than the patient for history (EMS, parent, family, police, friend...)? What history was obtained from this source @ -No Did you review nursing and triage notes (agree or disagree)? Why? @ -I reviewed and agree with nursing and triage notes Were old charts reviewed (outside hosp., previous admission, EMS record, old EKG, old radiological studies, urgent care reports/EKG's, detention records)? Report findings @ -No old charts were reviewed Differential Diagnosis (chest pain, altered mental status, abdominal pain women, abdominal pain men, vaginal bleeding, weakness, fever, dyspnea, syncope, headache, dizziness, GI bleed, back pain, seizure, CVA, palpatations, mental health, musculoskeletal)? @ -Differential Musculoskeletal Muscular strain, contusion, ligament sprain, fracture, arthritis, septic arthritis, bursitis, cellulitis, muscle spasm, nerve compression, DVT, arterial occlusion, herpes zoster, electrolyte abnormality, tumor.... This is not meant t o be in all inclusive list EKG interpreted by me (3pts min.). @ -None X-rays interpreted by me (1pt min.). @ -X-ray left foot reveals previous fracture of the second metatarsal and at the base of the fifth with overlying soft tissue injury. CT interpreted by me (1pt min.). @ -None done U/S interpreted by me (1pt. min.). @ -None done What testing was considered but not performed or refused? (CT, X-rays, U/S, labs)? Why? @ -None What meds were considered but not given or refused? Why? @ -None Did you discuss the management of the patient with other professionals (professionals i.e. , PA, WAREHOUSE UNLOADER, lab, RT, psych nurse, social work professor, field crop ii farmworker, teacher, technology officer, correctional counselor/case manager)? Give summary @ -No Was smoking cessation discussed for >3mins.? @ -No Was critical care preformed (if so, how long)? @ -No Were there social determinants of health that impacted care today? How? (Homelessness, low income, unemployed, alcoholism, drug addiction, transportation, low edu. Level, literacy, decrease access to med. care, fci, rehab)? @ -No Was there de-escalation of care discussed even if they declined (Discuss DNR or withdrawal of care, Hospice)? DNR status @ -No What co-morbidities impacted this encounter? (DM, HTN, Smoking, COPD, CAD, Cancer, CVA, ARF, Chemo, Hep., AIDS, mental health diagnosis, sleep apnea, morbid obesity)? @ -None Was patient admitted / discharged? Hospital course, mention meds given and route, prescriptions, significant lab abnormalities, going to OR and other pertinent info. @ -Discharge. 43-year-old male with complaint of left foot pain. On e xamination patient noted to have postsurgical scarring of the left lateral foot the wound is erythematous with no signs of purulence. Laboratory results reveal a mild elevated white blood cell count of 14.3 and neutrophils of 12.1. CMP unremarkable. Patient's not concerning for signs of osteomyelitis or infection of the bone. Due to patient's complaints of increasing pain and elevated white blood cell count. He will be prescribed as needed pain medication outpatient in addition to oral antibiotic. Patient has a history of MRSA. Additionally, spoke with patient's military police officer phone and reported findings. Is in agreement with this. Patient will follow-up with podiatry next week for further evaluation and treatment. Questions answered at bedside. Strict return parameters discussed with patient. Case is with Dr. Stevens Undiagnosed new problem with uncertain prognosis? @ -No Drug Therapy requiring intensive monitoring for toxicity (Heparin, Nitro, Insulin, Cardizem)? @ -No Were any procedures done? @ -No Diagnosis/symptom? @ -left foot pain, history of ortho surgery of the left foot Acute, or Chronic, or Acute on Chronic? @ -acute Uncomplicated (without systemic symptoms) or Complicated (systemic symptoms)? @ -uncomplicated Side effects of treatment? @ -No Exacerbation, Progression, or Severe Exacerbation? @ -No Poses a threat to life or bodily function? How? (Chest pain, [place], [place], pneumonia, PE, COPD, DKA, ARF, appy, cholecystitis, CVA, Diverticulitis, Homicidal, Suicidal, threat to staff... and all critical care pts) @ -No - Lab Data Result diagrams: 01/24/24 13:08 01/24/24 13:08 Lab Results 01/24/24 01/24/24 01/24/24 Range/Units 13:08 13:08 13:08 WBC 14.3 H (3.8-10.6) k/uL RBC 4.91 (4.30-5.90) m/uL Hgb 15.3 (13.0-17.5) gm/dL Hct 45.3 (39.0-53.0) % MCV 92.2 (80.0-100.0) fL MCH 31.2 (25.0-35.0) pg MCHC 33.8 (31.0-37.0) g/dL RDW 13.4 (11.5-15.5) % Plt Count 220 (150-450) k/uL MPV 7.5 Neutrophils % 84 % Lymphocytes % 7 % Monocytes % 5 % Eosinophils % 1 % Basophils % 0 % Neutrophils # 12.1 H (1.3-7.7) k/uL Lymphocytes # 1.0 (1.0-4.8) k/uL Monocytes # 0.8 (0-1.0) k/uL Eosinophils # 0.2 (0-0.7) k/uL Basophils # 0.1 (0-0.2) k/uL Sodium 139 (137-145) mmol/L Potassium 4.4 (3.5-5.1) mmol/L Chloride 103 (98-107) mmol/L Carbon Dioxide 28 (22-30) mmol/L Anion Gap 8 mmol/L BUN 10 (9-20) mg/dL Creatinine 0.88 (0.66-1.25) mg/dL Est GFR (CKD-EPI)AfAm >90 (>60 ml/min/1.73 sqM) Est GFR (CKD-EPI)NonAf >90 (>60 ml/min/1.73 sqM) Glucose 241 H (74-99) mg/dL Plasma Lactic Acid Zachary 1.4 (0.7-2.0) mmol/L Calcium 9.2 (8.4-10.2) mg/dL Total Bilirubin 1.0 (0.2-1.3) mg/dL AST 23 (17-59) U/L ALT 24 (4-49) U/L Alkaline Phosphatase 84 (38-126) U/L Total Protein 7.1 (6.3-8.2) g/dL Albumin 4.1 (3.5-5.0) g/dL Disposition Clinical Impression: Acute postoperative pain of left foot, Foot pain, left Narrative: Please return to the Emergency Department if symptoms worsen or any other concerns. Disposition: HOME SELF-CARE Condition: Good Prescriptions: clindamycin HCL 300 mg PO QID #40 cap HYDROcodone/APAP 10-325MG [[place] 10-325] 1 tab PO Q6HR PRN 3 Days #12 tab PRN Reason: Pain Is patient prescribed a controlled substance at d/c from ED?: Yes When asked, does pt state using other controlled substances?: No If prescribed controlled substance>3 days was MAPS reviewed?: Prescribed <3 Days Referrals: Prasad Veliz DO [Primary Care Provider] - 1-2 days Time of Disposition: 13:53
[2024-01-24 11:55] VITALS: BP 123/81; PULSE 96; RESP 20; TEMP 98.5
--- NOTE | 2024-01-24 13:00 | XR ---
EXAMINATION TYPE: XR foot complete 3 views LT DATE OF EXAM: 01/24/2024 Comparison: None Clinical History: 43-year-old male pain, previous surgery 01/05/24 Findings: Previous surgery along the lateral aspect of the fifth metatarsal head. 2 screw fixation at the fourt h metatarsal head. There appears to be soft tissue injury along the lateral mid foot with an underlyi ng fracture at the base of the fifth metatarsal. Fracture margin is somewhat indistinct. There is add itional irregularity at the base of the second metatarsal. Impression: 1. Possible subacute fracture at the base of the fifth metatarsal with overlying soft tissue injury. 2. Possible acute or subacute fracture base of the second metatarsal. 3. Previous surgery to the fourth and fifth metatarsal heads.
[2024-01-24] MEDS: HYDROmorphone 0.5 MG/0.5 ML SYRINGE IVP STA (13:10)
[2024-01-24 13:18] LABS: Basophils # (A) 0.1 k/uL (0-0.2); Basophils % (A) 0 %; Eosinophils # (A) 0.2 k/uL (0-0.7); Eosinophils % (A) 1 %; HCT 45.3 % (39.0-53.0); HGB 15.3 gm/dL (13.0-17.5); Lymphocytes % (A) 7 %; MCH 31.2 pg (25.0-35.0); MCHC 33.8 g/dL (31.0-37.0); MCV 92.2 fL (80.0-100.0); Mean Platelet Volume 7.5; Monocytes # (A) 0.8 k/uL (0-1.0); Monocytes % (A) 5 %; Neutrophils # (A) 12.1 k/uL (1.3-7.7); Neutrophils % (A) 84 %; Platelet Count 220 k/uL (150-450); RBC 4.91 m/uL (4.30-5.90); RDW 13.4 % (11.5-15.5); WBC 14.3 k/uL (3.8-10.6)
[2024-01-24 13:27] LABS: ALT 24 U/L (4-49); AST 23 U/L (17-59); African American GFR (CKD) >90 (>60 ml/min/1.73 sqM); Albumin 4.1 g/dL (3.5-5.0); Alkaline Phosphatase 84 U/L (38-126); Anion Gap 8 mmol/L; Blood Urea Nitrogen 10 mg/dL (9-20); Calcium 9.2 mg/dL (8.4-10.2); Carbon Dioxide 28 mmol/L (22-30); Chloride 103 mmol/L (98-107); Glucose 241 mg/dL (74-99); Non-African American GFR(CKD) >90 (>60 ml/min/1.73 sqM); Potassium 4.4 mmol/L (3.5-5.1); Sodium 139 mmol/L (137-145); Total Protein 7.1 g/dL (6.3-8.2)
== END 2024-01-24 14:50 | disposition home or self-care (01) ==
LOC: EC 11:12
DX: M79.672 Pain in left foot (principal); G89.18 Other acute postprocedural pain; F17.200 Nicotine dependence, unspecified, uncomplicated; Z86.73 Personal history of transient ischemic attack (TIA), and cerebral infarction without residual deficits; Z88.5 Allergy status to narcotic agent; Z88.6 Allergy status to analgesic agent; Z88.8 Allergy status to other drugs, medicaments and biological substances
CPT/HCPCS: 36415; 80053; 83605; 85025; 73630; 99283; 96374; J1170

== ENCOUNTER → 2024-02-04 | Outpatient (CLI) | payer OTHER ==
[2024-02-04 14:37] VITALS: BP 142/78; PULSE 89; RESP 15; TEMP 98.4
--- NOTE | 2024-02-04 14:50 | P.PAINPG ---
PQRS Measure Charge Sheet Comment: HISTORY OF PRESENT ILLNESS: A 43 yr old male presents today w severe and chronic LBP x 2 yrs secondary to DDD, spndylosis and facet arthropathy without myelopathy for evaluation . Pt states pain level is provoked at 7 /10 in intensity, constant, localized in the lower lumbar spine, predominantly axial, stabbing in character without shooting pain. Pain is provoked by over activity. Pain is alleviated by PT was years ago, chiropractic treatments semi weekly x 5 wks w last visit in Apr 2023, physician guided home exercises/ stretches daily since Apr 2023, heat, ice, medications, topical, repositioning and rest. Oswestry axial pain score at 23. Interventional procedures include FLORENCE L5-S1 x3, BL MBB L3-L5 x2, FLORENCE L4-L5 x1 Medications include Neurontin, Tyl REVIEW OF ORGAN SYSTEMS: CONSTITUTIONAL: No fevers or chills. No recent weight loss. NEUROLOGICAL: + numbness and tingling along the distal extremities. No seizure disorders or headaches. MUSCULOSKELETAL: + pain PSYCHIATRIC: Denies current depression or suicidal thoughts. Physical Examinations : Constitutional : Cooperative , not in acute distress . Neurologic : Cranial nerve II to XII intact. No focal neurological deficits. Psychiatric : alert & oriented x 3. Matching mood & appropriate affect. Judgment & insight intact. Musculoskeletal : Cervical Spine Motor strength in the deltoid and biceps: Normal right side. Normal Left side Motor strength biceps and the wrist extensors: Normal right side . Normal left side Motor strength in the triceps muscle: Normal right side. Normal left side Deep tendon reflexes: Normal at the biceps. Normal at Brachioradialis. Normal at triceps Vertebral body tenderness to deep palpation over 000 Cervical facet loading test: positive bilaterally Spurling test: positive bilaterally Neck distraction test: positive bilat erally Eusebia sign: positive bilaterally Lumbar spine Motor strength lower extremities ,thigh and legs 5/5 Right side , 5/5 Left side Deep tendon reflexes : Normal Knee Jerk. Normal Ankle Jerk Vertebral body tenderness L5 Goodwin Test positive L5-S1 Lumbar facet Loading Test: positive Right / positive Left Range of motion of the lumbar spine Flexion 30 degrees, extension 10 degrees Straight Leg Raise test: Left < Right positive at 35 degrees Tammi test: positive right / positive left. Severe tenderness over the Sacroiliac joint on the Right / Left sides Gaenslen test: positive bilaterally Seated flexion test: positive bilaterally. Sacral spine : Severe tenderness over the Sacroiliac joint: right side / left side Range of motion: Flexion of the lumbar spine <60 degrees Range of motion: Extension of the lumbar spine <20 degrees Gaenslen's Test positive Mohsen's Test positive Tammi test: positive right side / left side Thigh Thrust Test Sacral Thrust Test Imaging: MRI non contrast of the lumbar spine from 01/09/23 reviewed Assessment/ Plan : Lumbar DDD Recommendation of FLORENCE L5-S1. May need a series of injections for optimal pain relief. Risk, benefits of procedure discussed and patient verbalized understanabell iqbal. Protocol for discontinuation/continuation of medication surrounding this procedure discussed. States he has an EMG ordered by his Neurologist Dr Grullon. States he is established w an orthopedic surgeon and is not sure when his next appt is. Will manage residual pain and may RTC on an as needed basis. All questions answered. Fax from Dr Grullon's office received on 07/03/23 stated pt no longer wants Neurontin prescribed to him from them because this clinic wont prescribe narcotics to him as he has a narcotic agreement with them. At Jun 2023 visit, stated the Dr Grullon told him to obtain Neurontin and whatever else he needs from this clinic. I discussed w pt that a lateral move to obtain narcotics from a different physician will result on getting a smaller quantity of medications per the new [facility] rules. Pt responded that he'll just go back to Dr Mitchel Scherer and tell her "whatever." He also stated he hasn't taken Neurontin "in a while" while MAPS shows he filled it 06/26/23 for a quantity of #60 which he should still have in his possession. Dr Valencia was available by phone for the evaluation of this patient. The time was used to review the medical records including relevant urine studies and Prescription history (MAPs), review of the available imaging, evaluation and examination of the patient, coordination of care with the medical staff and if applicable referring physicians, as well as creation of the medical record PQRS Narrative: Smoking Status Current every day smoker Hx Alcohol Use (MH) Yes Home Medications: Ambulatory Orders Haloperidol Decanoate [Haldol D] 150 mg IM Q21D 07/31/14 Aspirin [Adult Low Dose Aspirin EC] 81 mg PO DAILY 12/07/19 Brivaracetam [Briviact] 50 mg PO BID 12/07/19 Levothyroxine Sodium [Synthroid] 50 mcg PO DAILY 12/07/19 Sertraline [Zoloft] 100 mg PO DAILY 12/07/19 lamoTRIgine [LaMICtal] 200 mg PO BID 12/07/19 lisinopriL 20 mg PO QAM 12/07/19 metFORMIN HCL [Glucophage] 1,000 mg PO BID 12/07/19 Albuterol Sulfate [Albuterol Sulfate Hfa] 1 puff PO RT-Q4H PRN 02/07/23 Docusate Sodium [Dok] 100 mg PO DAILY PRN 02/07/23 Famotidine [Pepcid] 40 mg PO BID 02/07/23 Fenofibrate [Lofibra] 160 mg PO DAILY 02/07/23 Fluticasone Propionate [Flovent Hfa 220 mcg] 2 puff INHALATION RT-BID 02/07/23 Gabapentin [Neurontin] 400 mg PO TID 02/07/23 Insulin NPH Hum/Reg Insulin Hm [humuLIN 70/30 Kwikpen] 18 unit SQ W/SUPPER 02/07/23 Insulin NPH Hum/Reg Insulin Hm [humuLIN 70/30 Kwikpen] 33 unit SQ W/BRKFST 02/07/23 OXcarbazepine [Trileptal] 150 mg PO BID 02/07/23 Propranolol [Inderal] 10 mg PO BID 02/07/23 Tamsulosin HCl [Flomax] 0.4 mg PO HS 02/07/23 lamoTRIgine [LaMICtal] 75 mg PO BID 02/07/23 sitaGLIPtin [Januvia] 100 mg PO DAILY 02/07/23 tiZANidine [Zanaflex] 4 mg PO TID PRN 02/07/23 traZODone HCL 150 mg PO HS 02/07/23 Atorvastatin [Lipitor] 80 mg PO HS #30 tab 02/11/23 [place]-3/Dha/Epa/Fish Oil [Fish Oil 1,000 mg Softgel] 1 each PO TID 11/03/23 HYDROcodone/APAP 10-325MG [[place] 10-325] 1 tab PO Q6HR PRN 3 Days #12 tab 01/24/24 clindamycin HCL 300 mg PO QID #40 cap 01/24/24 Controlled Substance Measures - Controlled Substance Measures Is patient prescribed a controlled substance at discharge?: No
== END ==
LOC: PNWHC3 13:31
PROVIDERS: ATTEND Specialist
DX: M51.37 Other intervertebral disc degeneration, lumbosacral region (principal); F17.200 Nicotine dependence, unspecified, uncomplicated; Z88.5 Allergy status to narcotic agent; Z88.8 Allergy status to other drugs, medicaments and biological substances; Z88.1 Allergy status to other antibiotic agents
CPT/HCPCS: 99211

== ENCOUNTER 2024-02-08 23:04 | Inpatient (IN) | payer OTHER ==
--- NOTE | 2024-02-08 23:33 | ED ---
General Adult HPI - General Chief complaint: Extremity Problem,Nontraumatic Stated complaint: osteomyelitis Time Seen by Provider: 02/08/24 23:32 Source: patient, RN/MD, EMS Mode of arrival: EMS Limitations: no limitations - History of Present Illness Initial comments: Patient was transferred to our ED from the [facility] ED for hospital admission with diagnosis of left foot osteomyelitis. Patient states that he had left foot surgery performed by a Dr. Malik about a month ago. Patient states that the surgery was to "shave bone". States for the past 2 days or so he has noticed increasing swelling, pain and redness to his left foot. Patient denies known trauma or injury. Patient denies fever or chills, headache, chest pain, dyspnea, dizziness, abdominal pain, nausea or vomiting, focal neuro deficit, or any other symptoms or complaints. Outside hospital records were reviewed myself. Labs were performed that are pertinent for WBC count of 12.82, normal lactic acid level, and elevated ESR and CRP. Left foot CT was also obtained at outside hospital this evening. Report shows: 1. Erosion along the lateral base of the fifth metatarsal compatible with osteomyelitis; 2. There is a low-density collection within the soft tissues adjacent to the region of osteomyelitis suspicious for underlying abscess; 3. Incidental note is made of nondisplaced fracture base of the second metatarsal...alignment between the cuneiforms and its relationship with the first metatarsal appears intact. Patient has been treated with IV vancomycin and IV cefepime at the outside hospital ED prior to ambulance transfer to our ED. - Related Data Home Medications Medication Instructions Recorded Confirmed Haloperidol Decanoate [Haldol D] 150 mg IM Q21D 07/31/14 11/27/23 Aspirin [Adult Low Dose Aspirin EC] 81 mg PO DAILY 12/07/19 11/27/23 Brivaracetam [Briviact] 50 mg PO BID 12/07/19 11/27/23 Levothyroxine Sodium [Synthroid] 50 mcg PO DAILY 12/07/19 11/27/23 Sertraline [Zoloft] 100 mg PO DAILY 12/07/19 11/27/23 lamoTRIgine [LaMICtal] 200 mg PO BID 12/07/19 11/27/23 lisinopriL 20 mg PO QAM 12/07/19 11/27/23 metFORMIN HCL [Glucophage] 1,000 mg PO BID 12/07/19 11/27/23 Albuterol Sulfate [Albuterol 1 puff PO RT-Q4H PRN 02/07/23 11/27/23 Sulfate Hfa] Docusate Sodium [Dok] 100 mg PO DAILY PRN 02/07/23 11/27/23 Famotidine [Pepcid] 40 mg PO BID 02/07/23 11/27/23 Fenofibrate [Lofibra] 160 mg PO DAILY 02/07/23 11/27/23 Fluticasone Propionate [Flovent 2 puff INHALATION RT-BID 02/07/23 11/27/23 Hfa 220 mcg] Gabapentin [Neurontin] 400 mg PO TID 02/07/23 11/27/23 Insulin NPH Hum/Reg Insulin Hm 18 unit SQ W/SUPPER 02/07/23 11/27/23 [humuLIN 70/30 Kwikpen] Insulin NPH Hum/Reg Insulin Hm 33 unit SQ W/BRKFST 02/07/23 11/27/23 [humuLIN 70/30 Kwikpen] OXcarbazepine [Trileptal] 150 mg PO BID 02/07/23 11/27/23 Propranolol [Inderal] 10 mg PO BID 02/07/23 11/27/23 Tamsulosin HCl [Flomax] 0.4 mg PO HS 02/07/23 11/27/23 lamoTRIgine [LaMICtal] 75 mg PO BID 02/07/23 11/27/23 sitaGLIPtin [Januvia] 100 mg PO DAILY 02/07/23 11/27/23 tiZANidine [Zanaflex] 4 mg PO TID PRN 02/07/23 11/27/23 traZODone HCL 150 mg PO HS 02/07/23 11/27/23 [place]-3/Dha/Epa/Fish Oil [Fish Oil 1 each PO TID 11/03/23 11/27/23 1,000 mg Softgel] Previous Rx's Medication Instructions Recorded Atorvastatin [Lipitor] 80 mg PO HS #30 tab 02/11/23 HYDROcodone/APAP 10-325MG [[place] 1 tab PO Q6HR PRN 3 Days #12 tab 01/24/24 10-325] clindamycin HCL 300 mg PO QID #40 cap 01/24/24 Allergies Allergy/AdvReac Type Severity Reaction Status Date / Time hydrocodone Allergy hives, Verified 01/24/24 11:19 nausea and vomiting ketorolac [From Toradol] Allergy Abdominal Verified 02/08/24 23:12 Pain mirtazapine [From Remeron] Allergy Abdominal Verified 02/08/24 23:12 Pain pioglitazone [From Actos] Allergy Abdominal Verified 02/08/24 23:12 Pain acetaminophen AdvReac Nausea & Verified 02/08/24 23:12 [From Tylenol-Codeine #3] Vomiting codeine AdvReac Nausea & Verified 02/08/24 23:12 [From Tylenol-Codeine #3] Vomiting Review of Systems ROS Statement: Those systems with pertinent positive or pertinent negative responses have been documented in the HPI. ROS Other: All systems not noted in ROS Statement are negative. Past Medical History Past Medical History: Asthma, Chest Pain / Angina, COPD, CVA/TIA, Diabetes Mellitus, GERD/Reflux, Hyperlipidemia, Hypertension, Seizure Disorder, Skin Disorder Additional Past Medical History / Comment(s): IDDM type II, grand mal seizures- "last seizure yrs ago", coughing from cigarettes, hemorrhoid, constipation/diarrhea, hx psoriasis, eczema, back pain, hydrocele. 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, [facility] foot surgery, sternum partially removed/muscle flap, lumbar puncture 10/03/23 Past Anesthesia/Blood Transfusion Reactions: No Reported Reaction Past Psychological History: Anxiety, Bipolar, Depression, Panic Disorder, Schizophrenia Smoking Status: Current every day smoker, Light tobacco smoker - Past Family History Sister(s) Family Medical History: Cancer Mother Family Medical History: Cancer Father Family Medical History: Cancer General Exam Limitations: no limitations General appearance: alert, in no apparent distress ENT exam: Present: mucous membranes moist Respiratory exam: Present: normal lung sounds bilaterally. Absent: respiratory distress, wheezes, rales, rhonchi, stridor Cardiovascular Exam: Present: regular rate, normal rhythm, normal heart sounds, other (Normal radial pulses bilaterally) Extremities exam: Present: other (Tender erythema and induration are noted along the patient's dorsal/lateral left foot adjacent to his 2 surgical wound; no left foot fluctuance or crepitation is appreciated) Neurological exam: Present: alert, oriented X3 Psychiatric exam: Present: normal affect Skin exam: Present: warm, dry Course Vital Signs 02/08/24 23:08 Temperature 98.3 F Pulse Rate 79 Respiratory 18 Rate Blood Pressure 107/62 O2 Sat by Pulse 96 Oximetry - Reevaluation(s) Reevaluation #1: 02/08/24 23:41 Case H&P and outside hospital test results/management were discussed with Dr. Pantoja. He accepts hospital admission. He recommends infectious disease consultation. He has no further recommendations at this time. Medical Decision Making - Medical Decision Making Was pt. sent in by a medical professional or institution (, PA, [employer]GER, urgent care, hospital, or halfway...) When possible be specific @ -No Did you speak to anyone other than the patient for history (EMS, parent, family, police, friend...)? What history was obtained from this source @ -Physician report was received from outside hospital prior to ED transfer. Did you review nursing and triage notes (agree or disagree)? Why? @ -I reviewed and agree with nursing and triage notes Were old charts reviewed (outside hosp., previous admission, EMS record, old EKG, old radiological studies, urgent care reports/EKG's, halfway records)? Report findings @ -No old charts were reviewed Differential Diagnosis (chest pain, altered mental status, abdominal pain women, abdominal pain men, vaginal bleeding, weakness, fever, dyspnea, syncope, headache, dizziness, GI bleed, back pain, seizure, CVA, palpatations, mental health, musculoskeletal)? @ -Cellulitis, osteomyelitis, abscess, wound infection, contusion, hematoma, fracture EKG interpreted by me (3pts min.). @ -None done X-rays interpreted by me (1pt min.). @ -None done CT interpreted by me (1pt min.). @ -None done U/S interpreted by me (1pt. min.). @ -None done What testing was considered but not performed or refused? (CT, X-rays, U/S, labs)? Why? @ -None What meds were considered but not given or refused? Why? @ -None Did you discuss the management of the patient with other professionals (professionals i.e. Dr., PA, [employer] MANAGER, lab, RT, psych nurse, social contact worker, concert promoter, teacher, detention officer, case managers)? Give summary @ -As above. Was smoking cessation discussed for >3mins.? @ -No Was critical care preformed (if so, how long)? @ -No Were there social determinants of health that impacted care today? How? (Homelessness, low income, unemployed, alcoholism, drug addiction, transportation, low edu. Level, literacy, decrease access to med. care, assisted, rehab)? @ -No Was there de-escalation of care discussed even if they declined (Discuss DNR or withdrawal of care, Hospice)? DNR status @ -No What co-morbidities impacted this encounter? (DM, HTN, Smoking, COPD, CAD, Cancer, CVA, ARF, Chemo, Hep., AIDS, mental health diagnosis, sleep apnea, morbid obesity)? @ -None Was patient admitted / discharged? Hospital course, mention meds given and route, prescriptions, significant lab abnormalities, going to OR and other pertinent info. @ -Patient was transferred from outside hospital to our ED for admission due to left foot osteomyelitis. Outside hospital records were all reviewed myself and pertinent findings can be found in HPI. Patient was treated with IV vancomycin and IV cefepime at outside hospital ED prior to transfer to our ED. Case was discussed with Dr. Pantoja who has accepted hospital admission. Undiagnosed new problem with uncertain prognosis? @ -No Drug Therapy requiring intensive monitoring for toxicity (Heparin, Nitro, Insulin, Cardizem)? @ -No Were any procedures done? @ -No Diagnosis/symptom? @ -Left foot cellulitis, osteomyelitis and possible abscess Acute, or Chronic, or Acute on Chronic? @ -Acute Uncomplicated (without systemic symptoms) or Complicated (systemic symptoms)? @ -Default Side effects of treatment? @ -No Exacerbation, Progression, or Severe Exacerbation? @ -No Poses a threat to life or bodily function? How? (Chest pain, [place], ID, pneumonia, PE, COPD, DKA, ARF, appy, cholecystitis, CVA, Diverticulitis, Homicidal, Suicidal, threat to staff... and all critical care pts) @ -No Disposition Clinical Impression: Cellulitis of left foot, Foot osteomyelitis, left Narrative: Possible left foot abscess Disposition: ADMITTED IP TO THIS HOSP Condition: Stable Is patient prescribed a controlled substance at d/c from ED?: No Referrals: Prasad Veliz DO [Primary Care Provider] - 1-2 days Time of Disposition: 23:44
[2024-02-08] MEDS ORDERED: NALOXONE 0.4 MG/ML 1 ML VIAL IV PRN (23:44)
[2024-02-08] MEDS: SODIUM CHLORIDE 0.9% 1,000 ML IV SCH (23:56)
[2024-02-09] MEDS ORDERED: MORPHINE SULFATE 4 MG/ML SYRINGE IVP PRN
[2024-02-09] MEDS: MORPHINE SULFATE 4 MG/ML SYRINGE IVP STA (00:12)
[2024-02-09] MEDS: MORPHINE SULFATE 4 MG/ML SYRINGE IVP PRN (04:14)
[2024-02-09 07:06] LABS: Glucose,Whole Blood 135 mg/dL (70-110)
[2024-02-09 08:22] LABS: ALT 20 U/L (4-49); AST 23 U/L (17-59); African American GFR (CKD) >90 (>60 ml/min/1.73 sqM); Albumin 3.4 g/dL (3.5-5.0); Alkaline Phosphatase 78 U/L (38-126); Anion Gap 3 mmol/L; Blood Urea Nitrogen 5 mg/dL (9-20); Calcium 8.5 mg/dL (8.4-10.2); Carbon Dioxide 29 mmol/L (22-30); Chloride 108 mmol/L (98-107); Glucose 116 mg/dL (74-99); Non-African American GFR(CKD) >90 (>60 ml/min/1.73 sqM); Potassium 3.8 mmol/L (3.5-5.1); Sodium 140 mmol/L (137-145); Total Bilirubin 0.7 mg/dL (0.2-1.3); Total Protein 6.3 g/dL (6.3-8.2)
[2024-02-09 08:30] LABS: Basophils # (A) 0.1 k/uL (0-0.2); Basophils % (A) 1 %; Eosinophils # (A) 0.3 k/uL (0-0.7); Eosinophils % (A) 4 %; HCT 39.4 % (39.0-53.0); HGB 13.8 gm/dL (13.0-17.5); Lymphocytes # (A) 1.3 k/uL (1.0-4.8); Lymphocytes % (A) 15 %; MCH 32.3 pg (25.0-35.0); MCHC 34.9 g/dL (31.0-37.0); MCV 92.6 fL (80.0-100.0); Mean Platelet Volume 7.6; Monocytes # (A) 0.6 k/uL (0-1.0); Monocytes % (A) 7 %; Neutrophils # (A) 6.4 k/uL (1.3-7.7); Neutrophils % (A) 72 %; Platelet Count 209 k/uL (150-450); RBC 4.26 m/uL (4.30-5.90); RDW 13.2 % (11.5-15.5); WBC 8.8 k/uL (3.8-10.6)
[2024-02-09] MEDS ORDERED: tiZANidine 4 MG TAB PO PRN (12:20)
[2024-02-09] MEDS ORDERED: DEXTROSE 50% SYRINGE 50 ML IVP PRN ×2 (12:27)
[2024-02-09] MEDS ORDERED: CALCIUM CARBONATE 500 MG CHEWABLE PO PRN (12:32)
[2024-02-09] MEDS ORDERED: LACTULOSE 20 GM/30 ML CUP PO PRN (12:32)
[2024-02-09 12:52] LABS: Glucose,Whole Blood 141 mg/dL (70-110)
[2024-02-09] MEDS: NICOTINE 14MG/24HR PATCH TRANSDERM SCH (13:07)
[2024-02-09] MEDS: ENOXAPARIN 40 MG/0.4 ML SYRINGE SQ SCH (13:08)
[2024-02-09] MEDS: lisinopriL 20 MG TAB PO SCH (13:09)
[2024-02-09] MEDS: FAMOTIDINE 20 MG TAB PO SCH (13:09)
[2024-02-09] MEDS: metFORMIN 500 MG TAB PO SCH (13:09)
[2024-02-09] MEDS: ASPIRIN 81 MG PO SCH (13:09)
[2024-02-09] MEDS: FENOFIBRATE 160 MG TAB PO SCH (13:09)
[2024-02-09] MEDS: SERTRALINE 100 MG TAB PO SCH (13:10)
[2024-02-09] MEDS: GABAPENTIN 400 MG CAP PO SCH (13:10)
[2024-02-09] MEDS: lamoTRIgine 100 MG TAB PO SCH (13:10)
[2024-02-09] MEDS: lamoTRIgine 25 MG TAB PO SCH (13:10)
[2024-02-09] MEDS: INSULIN ASPART (NovoLOG) 100 UNIT/ML VIAL SQ SCH (13:33)
[2024-02-09] MEDS: OXcarbazepine 150 MG TAB PO SCH (13:40)
[2024-02-09] MEDS: PROPRANOLOL 10 MG TAB PO SCH (13:40)
[2024-02-09] MEDS: LINAGLIPTIN 5 MG TABLET PO SCH (13:40)
--- NOTE | 2024-02-09 14:09 | XR ---
EXAMINATION TYPE: XR foot complete LT DATE OF EXAM: 02/09/2024 1:55 PM CLINICAL INDICATION:Male, 43 years old with history of left foot abcess - post off 4 weeks; [facility] COMPARISON: 01/24/2044. TECHNIQUE: XR foot complete LT examined in the AP, oblique, and lateral projections. FINDINGS/IMPRESSION: * Soft tissue swelling throughout the foot. No obvious erosive changes. * Fixation screws in the fourth metacarpal appear intact. * Suspected fifth metacarpal base fracture remains present . Attention follow-up MRI. * Fracture of the base of the second metacarpal seen on prior is not well appreciated and possibly d ue to patient positioning on prior. Correlate with pain.
[2024-02-09] MEDS: NON FORMULARY DRUG (Brivaracetam [Briviact] 50 MG Tablet) PO SCH (14:19)
[2024-02-09] MEDS ORDERED: VANCOMYCIN IV PER PHARMACY 1 EACH MISC MISCELLANE PRN (16:12)
[2024-02-09] MEDS: FLUTICASONE 110 MCG INHALER INHALATION SCH (16:35)
[2024-02-09] MEDS: HYDROcodone/APAP 10-325MG 1 EACH TAB PO PRN (16:40)
[2024-02-09 17:17] LABS: Glucose,Whole Blood 134 mg/dL (70-110)
[2024-02-09] MEDS: VANCOMYCIN 1,500 MG in SODIUM CHLORIDE 0.9% 500 ML 500 ML IVPB ONE (17:33)
--- NOTE | 2024-02-09 17:44 | P.HPIM ---
History of Present Illness H&P Date: 02/09/24 Chief Complaint: Left foot pain infection This is a pleasant 43-year-old patient who follows with Dr. Prasad Matthews. Chronic stable medical condition include COPD, diabetes, GERD, hyperlipidemia, essential hypertension, grand mal seizure several years ago, hemorrhoids, psoriasis, previous TIA with no residual. 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 Bipolar. Patient underwent surgery on the left foot and some bone was taken off. He is unclear as to the reason for the same. This was done by physician out of the area. Surgery was done in January 04. About 3 weeks ago patient developed a wound in that area. He did go down to [facility] where he finished 2 weeks of clindamycin about a week ago. Patient now for the last 5 days having increasing pain swelling tenderness at that area. Finally decided to come in. In the ER was started on vancomycin. Patient is a longstanding smoker denies any obvious fever and chills. No change in bowel pattern. Decreased appetite. Review of systems: GEN.: Decreased appetite EYES: None HEENT: None NECK: None RESPIRATORY: None CARDIOVASCULAR: None GASTROINTESTINAL: None GENITOURINARY: None MUSCULOSKELETAL: As above LYMPHATICS: None HEMATOLOGICAL: None PSYCHIATRY: Anxious NEUROLOGICAL: None Social history: Patient lives with his parents. Smokes half a pack a day for last 30 years. CBD oil. Alcohol occasionally Physical examination: VITAL SIGNS: 97.9, 71, 16, 122/80, 96% room air GENERAL: BMI 29.1,. Sitting bed awake not in distress EYES: Pupils equal. Conjunctiva chelsi l. HEENT: External appearance of nose and ears normal, oral cavity grossly normal. NECK: JVD not raised; masses not palpable. HEART: First and second heart sounds are normal; no edema. LUNGS: Respiratory rate normal; slightly decreased breath sounds. ABDOMEN: Soft, nontender, liver spleen not palpable, no masses palpable. PSYCH: [Alert and oriented x3; mood and affect. Anxious. MUSCULOSKELETAL:No Clubbing/cyanosis;muscles-grossly intact. Left foot swollen compared to the right. Midfoot on the lateral side is also swollen very tender with some fluctuation.. Slightly increased local temperature. Breakdown of skin on the lateral side. Of the foot NEUROLOGICAL: Cranial nerves grossly intact; no facial asymmetry, power and sensation grossly intact. LYMPHATICS: No lymph nodes palpable in the axilla and neck INVESTIGATIONS, reviewed in the clinical context: February 09, 2024: White count 8.8 hemoglobin 13.8 platelets 209 potassium 3.8. 5 creatinine 0.75 blood glucose 116 X-ray left foot complete: Soft tissue swelling throughout the foot. Fixation screws in the fourth metacarpal appear intact. Suspected fifth metacarpal base fracture remains present. Assessment plan: -Suspect left foot abscess/soft tissue infection, in the foot that underwent surgery on January 04. Exact indication for surgery unclear. Patient 3 weeks ago started having pain and swelling. Did receive clindamycin for 2 weeks of Jung a week ago. Last 5 days symptoms have been worsening. I ordered an x-ray with the findings above. Orthopedic on-call was consulted. Marisol Lacy NP for Dr. Ortiz [facility] informed us that the foot doctor Dr. Pereyra will take the consult hence consult is being changed to the same. Will keep the patient n.p.o. after midnight. For possible intervention. MRI of the foot has been ordered. IV vancomycin. ID also consulted -Chronic nicotine dependence cigarette smoker Patient counseled. Nicotine patch -COPD no current smoker Albuterol as needed. Flovent. -Diabetes mellitus type 2 on oral hypoglycemic Januvia. Glucophage. -Hyperlipidemia Lofibra -Hypothyroid Synthroid 50 mcg -Diabetes mellitus type type I on insulin Resume home dose of insulin. Follow Accu-Cheks -Bipolar disorder Continue home medication for the same -Essential hypertension Lisinopril -Epilepsy/grand mal seizures. Last episode several years ago. Briviact. Trileptal -Full code Care was discussed with the patient. Dr. Pereyra and ID being consulted. Past Medical History Past Medical History: Asthma, Chest Pain / Angina, COPD, CVA/TIA, Diabetes Mellitus, GERD/Reflux, Hyperlipidemia, Hypertension, Seizure Disorder, Skin Disorder Additional Past Medical History / Comment(s): IDDM type II, grand mal seizures- "last seizure yrs ago", coughing from cigarettes, hemorrhoid, con stipation/diarrhea, hx psoriasis, eczema, back pain, hydrocele. 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, [facility] foot surgery, sternum partially removed/muscle flap, lumbar puncture 10/03/23 Past Anesthesia/Blood Transfusion Reactions: No Reported Reaction Past Psychological History: Anxiety, Bipolar, Depression, Panic Disorder, Schizophrenia Additional Psychological History / Comment(s): manic depression, paranoia. Smoking Status: Current every day smoker, Light tobacco smoker Past Alcohol Use History: Occasional Additional Past Alcohol Use History / Comment(s): smoking 1/2 PPD, started smoking age 13 Past Drug Use History: None Reported Additional Drug Use History / Comment(s): CBD oil - Past Family History Sister(s) Family Medical History: Cancer Mother Family Medical History: Cancer Father Family Medical History: Cancer Medications and Allergies Home Medications Medication Instructions Recorded Confirmed Type Haloperidol Decanoate [Haldol D] 200 mg IM Q21D 07/31/14 02/09/24 History Aspirin [Adult Low Dose Aspirin EC] 81 mg PO DAILY 12/07/19 02/09/24 History Brivaracetam [Briviact] 50 mg PO BID 12/07/19 02/09/24 History Levothyroxine Sodium [Synthroid] 50 mcg PO DAILY 12/07/19 02/09/24 History lamoTRIgine [LaMICtal] 200 mg PO BID 12/07/19 02/09/24 History lisinopriL 20 mg PO DAILY 12/07/19 02/09/24 History metFORMIN HCL [Glucophage] 1,000 mg PO BID-W/MEALS 12/07/19 02/09/24 History Albuterol Sulfate [Albuterol 2 puff PO RT-Q6H PRN 02/07/23 02/09/24 History Sulfate Hfa] Famotidine [Pepcid] 40 mg PO BID 02/07/23 02/09/24 History Fenofibrate [Lofibra] 160 mg PO DAILY 02/07/23 02/09/24 History Fluticasone Propionate [Flovent 2 puff INHALATION RT-BID 02/07/23 02/09/24 History Hfa 220 mcg] Gabapentin [Neurontin] 400 mg PO TID 02/07/23 02/09/24 History Insulin NPH Hum/Reg Insulin Hm 18 unit SQ W/SUPPER 02/07/23 02/09/24 History [humuLIN 70/30 Kwikpen] Insulin NPH Hum/Reg Insulin Hm 33 unit SQ W/BRKFST 02/07/23 02/09/24 History [humuLIN 70/30 Kwikpen] OXcarbazepine [Trileptal] 150 mg PO BID 02/07/23 02/09/24 History Tamsulosin HCl [Flomax] 0.4 mg PO HS 02/07/23 02/09/24 History lamoTRIgine [LaMICtal] 75 mg PO BID 02/07/23 02/09/24 History sitaGLIPtin [Januvia] 100 mg PO DAILY 02/07/23 02/09/24 History tiZANidine [Zanaflex] 4 mg PO TID PRN 02/07/23 02/09/24 History traZODone HCL 150 mg PO HS 02/07/23 02/09/24 History Atorvastatin [Lipitor] 40 mg PO HS 02/09/24 02/09/24 History Ferrous Sulfate [Feosol] 325 mg PO DAILY 02/09/24 02/09/24 History Propranolol LA [Inderal LA] 60 mg PO HS 02/09/24 02/09/24 History Sertraline HCl 150 mg PO DAILY 02/09/24 02/09/24 History Allergies Allergy/AdvReac Type Severity Reaction Status Date / Time hydrocodone Allergy hives, Verified 02/09/24 13:04 nausea and vomiting ketorolac [From Toradol] Allergy Abdominal Verified 02/09/24 13:04 Pain mirtazapine [From Remeron] Allergy Abdominal Verified 02/09/24 13:04 Pain pioglitazone [From Actos] Allergy Abdominal Verified 02/09/24 13:04 Pain acetaminophen AdvReac Nausea & Verified 02/09/24 13:04 [From Tylenol-Codeine #3] Vomiting codeine AdvReac Nausea & Verified 02/09/24 13:04 [From Tylenol-Codeine #3] Vomiting Physical Exam Vitals: Vital Signs Temp Pulse Pulse Resp BP BP Pulse Ox 02/09/24 07:05 97.9 F 71 16 122/80 96 02/09/24 03:52 98.1 F 76 18 117/75 96 02/09/24 03:48 76 18 02/09/24 03:16 67 16 124/81 97 02/09/24 02:00 64 16 121/76 93 L 02/09/24 01:00 80 16 101/60 95 02/09/24 00:14 77 18 106/74 6 L 02/08/24 23:08 98.3 F 79 18 107/62 96 Intake and Output 02/08/24 02/09/24 02/09/24 22:59 06:59 14:59 Intake Total 765 Balance 765 Intake: Intake, IV Titration 225 Amount Sodium Chloride 0.9% 1, 225 000 ml @ 75 mls/hr IV . [id number] [facility] Rx#:[id number] Oral 540 Other: Voiding Method Toilet Toilet # Voids 1 Weight 81.647 kg Results CBC & Chem 7: 02/09/24 07:35 02/09/24 07:35 Labs: Abnormal Lab Results - Last 24 Hours (Table) 02/09/24 02/09/24 02/09/24 Range/Units 07:05 07:35 07:35 RBC 4.26 L (4.30-5.90) m/uL Chloride 108 H (98-107) mmol/L BUN 5 L (9-20) mg/dL Glucose 116 H (74-99) mg/dL POC Glucose (mg/dL) 135 H (70-110) mg/dL Albumin 3.4 L (3.5-5.0) g/dL Thrombosis Risk Factor Assmnt - Choose All That Apply Each Factor Represents 1 point: Age 41-60 years Other Risk Factors: No Other congenital or acquired thrombophilia - If yes, enter type in comment: No Thrombosis Risk Factor Assessment Total Risk Factor Score: 1 Thrombosis Risk Factor Assessment Level: Low Risk
[2024-02-09] MEDS: INSULN ASP PRT/INSULIN ASPART 100 UNIT/ML 10 ML VIAL SQ SCH (18:43)
[2024-02-09 20:20] LABS: Glucose,Whole Blood 73 mg/dL (70-110)
[2024-02-09] MEDS: TAMSULOSIN 0.4 MG CAP.ER.24H PO SCH (22:03)
[2024-02-09] MEDS: ATORVASTATIN 80 MG TAB PO SCH (22:03)
[2024-02-09] MEDS: traZODone HCL 100 MG TAB PO SCH (22:03)
[2024-02-10] MEDS: VANCOMYCIN 1,500 MG in SODIUM CHLORIDE 0.9% 500 ML 500 ML IVPB SCH (03:04)
[2024-02-10] MEDS: VANCOMYCIN TROUGH DUE 1 EACH MISC MISCELLANE ONE (03:04)
[2024-02-10 07:35] LABS: Glucose,Whole Blood 90 mg/dL (70-110)
[2024-02-10] MEDS: INSULN ASP PRT/INSULIN ASPART 100 UNIT/ML 10 ML VIAL SQ SCH (07:47)
--- NOTE | 2024-02-10 07:48 | P.CONS ---
History of Present Illness - Reason for Consult Consult date: 02/09/24 Left foot osteomyelitis Requesting physician: Farooq Pantoja - Chief Complaint Left foot swelling and redness x few days - History of Present Illness Patient is a 43-year-old male with a past medical history significant for diabetes mellitus hypertension hyperlipidemia seizure disorder CVA TIA COPD patient presenting to the hospital for evaluation of increasing swelling redness and pain to the left foot area apparently the patient recently did have surgery done by his felt dyeing machine tender with the patient mention he did have shaving of the bone, patient now with the increasing swelling or redness and pain to the left foot area patient describing the pain to be throbbing almost 10 or 10 in severity, no radiation with associated swelling redness denies any foul-smelling drainage or high-grade fever patient mention has been treated with oral Keflex without any improvement patient on presentation the hospital was afebrile and no fever have recorded subsequently patient was not tachycardic hypotensive or hypoxic did have white count of 8.8 creatinine 0.75 patient did have a foot x-ray soft tissue swelling throughout the foot no obvious erosive changes fixation screws in the fourth metatarsal appear intact suspect fifth metatarsal base fracture remains present patient has been admitted to the hospital infectious disease was consulted for further management of antibiotic therapy Review of Systems Positive point and negatives has been mentioned in the HPI, complete review of systems was performed and all other systems are negative Past Medical History Past Medical History: Asthma, Chest Pain / Angina, COPD, CVA/TIA, Diabetes Mellitus, GERD/Reflux, Hyperlipidemia, Hypertension, Seizure Disorder, Skin Disorder Additional Past Medical History / Comment(s): IDDM type II, grand mal seizures- "last seizure yrs ago", coughing from cigarettes, hemorrhoid, constipa tion/diarrhea, hx psoriasis, eczema, back pain, hydrocele. 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 Smoking Status: Current every day smoker, Light tobacco smoker Past Alcohol Use History: Occasional Additional Past Alcohol Use History / Comment(s): smoking 1/2 PPD, started smoking age 13 Past Drug Use History: None Reported Additional Drug Use History / Comment(s): CBD oil - Past Family History Sister(s) Family Medical History: Cancer Mother Family Medical History: Cancer Father Family Medical History: Cancer Medications and Allergies Home Medications Medication Instructions Recorded Confirmed Type Haloperidol Decanoate [Haldol D] 200 mg IM Q21D 07/31/14 02/09/24 History Aspirin [Adult Low Dose Aspirin EC] 81 mg PO DAILY 12/07/19 02/09/24 History Brivaracetam [Briviact] 50 mg PO BID 12/07/19 02/09/24 History Levothyroxine Sodium [Synthroid] 50 mcg PO DAILY 12/07/19 02/09/24 History lamoTRIgine [LaMICtal] 200 mg PO BID 12/07/19 02/09/24 History lisinopriL 20 mg PO DAILY 12/07/19 02/09/24 History metFORMIN HCL [Glucophage] 1,000 mg PO BID-W/MEALS 12/07/19 02/09/24 History Albuterol Sulfate [Albuterol 2 puff PO RT-Q6H PRN 02/07/23 02/09/24 History Sulfate Hfa] Famotidine [Pepcid] 40 mg PO BID 02/07/23 02/09/24 History Fenofibrate [Lofibra] 160 mg PO DAILY 02/07/23 02/09/24 History Fluticasone Propionate [Flovent 2 puff INHALATION RT-BID 02/07/23 02/09/24 History Hfa 220 mcg] Gabapentin [Neurontin] 400 mg PO TID 02/07/23 02/09/24 History Insulin NPH Hum/Reg Insulin Hm 18 unit SQ W/SUPPER 02/07/23 02/09/24 History [humuLIN 70/30 Kwikpen] Insulin NPH Hum/Reg Insulin Hm 33 unit SQ W/BRKFST 02/07/23 02/09/24 History [humuLIN 70/30 Kwikpen] OXcarbazepine [Trileptal] 150 mg PO BID 02/07/23 02/09/24 History Tamsulosin HCl [Flomax] 0.4 mg PO HS 02/07/23 02/09/24 History lamoTRIgine [LaMICtal] 75 mg PO BID 02/07/23 02/09/24 History sitaGLIPtin [Januvia] 100 mg PO DAILY 02/07/23 02/09/24 History tiZANidine [Zanaflex] 4 mg PO TID PRN 02/07/23 02/09/24 History traZODone HCL 150 mg PO HS 02/07/23 02/09/24 History Ferrous Sulfate [Iron (65 MG 325 mg PO DAILY 02/09/24 02/09/24 History Elemental)] Atorvastatin [Lipitor] 80 mg PO HS #30 tab 02/13/24 Rx Metoprolol Tartrate [Lopressor] 12.5 mg PO BID 30 Days #60 tablet 02/13/24 Rx Nicotine 14Mg/24Hr Patch [Habitrol] 1 patch TRANSDERM DAILY #42 patch 02/13/24 Rx Sertraline [Zoloft] 100 mg PO DAILY #30 tab 02/13/24 Rx metroNIDAZOLE [Flagyl] 500 mg PO TID #90 tab 02/13/24 Rx Allergies Allergy/AdvReac Type Severity Reaction Status Date / Time hydrocodone Allergy hives, Verified 02/10/24 16:23 nausea and vomiting ketorolac [From Toradol] Allergy Abdominal Verified 02/10/24 16:23 Pain mirtazapine [From Remeron] Allergy Abdominal Verified 02/10/24 16:23 Pain pioglitazone [From Actos] Allergy Abdominal Verified 02/10/24 16:23 Pain acetaminophen AdvReac Nausea & Verified 02/10/24 16:23 [From Tylenol-Codeine #3] Vomiting codeine AdvReac Nausea & Verified 02/10/24 16:23 [From Tylenol-Codeine #3] Vomiting Physical Exam Vitals: Vital Signs Temp Pulse Pulse Resp BP BP BP 02/09/24 12:51 98.1 F 74 18 128/78 02/09/24 07:05 97.9 F 71 16 122/80 02/09/24 03:52 98.1 F 76 18 117/75 02/09/24 03:48 76 18 02/09/24 03:16 67 16 124/81 02/09/24 02:00 64 16 121/76 02/09/24 01:00 80 16 101/60 02/09/24 00:14 77 18 106/74 02/08/24 23:08 98.3 F 79 18 107/62 Pulse Ox 02/09/24 12:51 96 02/09/24 07:05 96 02/09/24 03:52 96 02/09/24 03:48 02/09/24 03:16 97 02/09/24 02:00 93 L 02/09/24 01:00 95 02/09/24 00:14 6 L 02/08/24 23:08 96 Intake and Output 02/09/24 02/09/24 02/09/24 06:59 14:59 22:59 Intake Total 765 Balance 765 Intake: Intake, IV Titration 225 Amount Sodium Chloride 0.9% 1, 225 000 ml @ 75 mls/hr IV . [id number] [facility] Rx#:[id number] Oral 540 Other: Voiding Method Toilet Toilet # Voids 1 Weight 81.647 kg GENERAL DESCRIPTION: Middle-aged male lying in bed, no distress. No tachypnea or accessory muscle of respiration use. HEENT: Shows Pallor , no scleral icterus. Oral mucous membrane is dry. No pharyngeal erythema or thrush NECK: Trachea central, no thyromegaly. LUNGS: Unlabored breathing. Clear to auscultation anteriorly. No wheeze or crackle. HEART: S1, S2, regular rate and rhythm. No loud murmur ABDOMEN: Soft, no tenderness , guarding or rigidity, no organomegaly EXTREMITIES: Left foot with significant swelling redness with a wound to the lateral border with some callus no significant drainage SKIN: No rash, no masses palpable. NEUROLOGICAL: The patient is awake, alert, oriented x3, mood and affect normal. Results CBC & Chem 7: 02/11/24 11:12 02/13/24 06:41 Labs: Abnormal Lab Results - Last 24 Hours (Table) 02/09/24 02/09/24 02/09/24 Range/Units 07:05 07:35 07:35 RBC 4.26 L (4.30-5.90) m/uL Chloride 108 H (98-107) mmol/L BUN 5 L (9-20) mg/dL Glucose 116 H (74-99) mg/dL POC Glucose (mg/dL) 135 H (70-110) mg/dL Albumin 3.4 L (3.5-5.0) g/dL 02/09/24 Range/Units 12:51 RBC (4.30-5.90) m/uL Chloride (98-107) mmol/L BUN (9-20) mg/dL Glucose (74-99) mg/dL POC Glucose (mg/dL) 141 H (70-110) mg/dL Albumin (3.5-5.0) g/dL Assessment and Plan (1) Cellulitis of left foot Status: Acute Code(s): L03.116 - CELLULITIS OF LEFT LOWER LIMB SNOMED Code(s): 50131353822441767 (2) Foot osteomyelitis, left Status: Acute Code(s): M86.9 - OSTEOMYELITIS, UNSPECIFIED SNOMED Code(s): 1228547793622965 Plan: 1patient presented to hospital with left foot cellulitis in this patient who did have a recent outpatient surgery by his felt dyeing machine tender patient describing it to be shaving of the bones patient did have a callus on the lateral aspect of the left foot but not purulent drainage was noticed as significant swelling and redness as well as tenderness to left foot area failing outpatient oral Keflex will need to cover for resistant gram-positive such as MRSA. 2we will obtain a CT of the left foot to make sure no evidence of any abscess that may need to be drained. 3await podiatry evaluation for possible debridement and deep culture. 4we will start the patient on vancomycin pharmacy to dose target trough of 15 while watching kidney function and Vanco trough closely. We will follow on clinical condition and cultures to further adjust medication if needed Thank you for this consultation we will follow the patient along with you Dictation was produced using [employer] dictation software. please excuse any grammatical, word or spelling errors. Time with Patient: Greater than 30
--- NOTE | 2024-02-10 07:58 | P.CON ---
Consult Note - . Consult date: 02/10/24 Assessment/Plan:: Podiatric surgery Chief complaint: Cellulitis and infection to left foot HPI: This is a 43-year-old male with past medical history of COPD and diabetes mellitus who smokes half pack per day. Patient states that on January 04 he had a Kidner procedure by Dr. Wes Mercado. Patient states approximately 2 weeks ago he started noticing redness and an opening in his skin. Patient went to a local hospital where he was given oral antibiotics. He has now failed 2 weeks of oral antibiotics and was admitted to inpatient. He has had drainage coming from the side of the foot. He states that he has not put a bandage on this. He states t hat over the last week it got extensively worse. The entire foot is painful. He denies any nausea, vomiting, fever, chills, shortness of breath, calf pain, chest pain. Lower extremity exam: A&O x 3, NAD Vascular: Nonpalpable DP and PT pulse to the left foot. CFT less than 3 seconds to all digits. Extensive edema and erythema to the entire left foot extending across the midfoot greater than 2 cm from open ulceration site. Derm: Full-thickness ulceration at the lateral aspect of the fifth metatarsal base. This measures 0.8 x 1.0 x 0.6 cm and probes to bone. Mild purulence is expressed. Extensive surrounding erythema appreciated. Neuro: Light touch sensation is decreased to the level of the midfoot. [place]- Aime monofilament on is a 6 out of 10 bilateral. MSK: Patient has pain with palpation of the fifth metatarsal base and ulceration site. He also has pain with palpation across the dorsal midfoot where the erythema is extending. No pain with compression of the calves. Calves are soft and supple. Assessment: 1. Ulceration left foot 2. Cellulitis left foot 3. Rule out osteomyelitis versus surgical changes from Kidner procedure on 01/04 4. Diabetes mellitus with peripheral neuropathy Plan: End up discussion with patient today regarding his clinical findings. With patient verbal consent and sterile 15 blade was used to elevate some of the hyperkeratotic tissue surrounding the ulceration. Purulent drainage was expressed. This does probe to bone. No further debridement was performed bedside. This was dressed with Betadine, gauze, Kerlix, Dwight bandage. Reviewed patient's x-rays in detail today. Patient did have resection of the fifth metatarsal base per patient from an outside physician. Significant osteolytic findings to the base of the fifth metatarsal. Difficult to assess whether this was secondary to surgical procedure versus osteolytic from infectious process. Plan is to take patient to operating room today at 5 PM. Plan is for incision and drainage with bone biopsy left foot. All patient's questions were answered. Medical clearance requested from primary team. I already discussed this plan with them and they are in agreement. Patient is able to eat breakfast. He should be n.p.o. after 9 AM. Latha Pereyra DPM, AACFAS Podiatric Surgery
[2024-02-10] MEDS: ALBUTEROL NEBULIZED 2.5 MG/3 ML INHALATION PRN (09:16)
[2024-02-10 11:40] LABS: Glucose,Whole Blood 109 mg/dL (70-110)
[2024-02-10 16:27] LABS: Glucose,Whole Blood 119 mg/dL (70-110)
[2024-02-10] MEDS: LACTATED RINGERS 1,000 ML IV ONE (16:31)
[2024-02-10] MEDS: ONDANSETRON 4 MG/2 ML VIAL IVP PRN (16:38)
--- NOTE | 2024-02-10 16:39 | P.PN ---
Subjective Progress Note Date: 02/10/24 Principal diagnosis: Reason for follow-up is left diabetic foot infection Patient is a 43-year-old male with a past medical history significant for diabetes mellitus hypertension hyperlipidemia seizure disorder CVA TIA COPD patient presenting to the hospital for evaluation of increasing swelling redness and pain to the left foot area apparently the patient recently did have surgery done by his jewellery designer and failing outpatient oral Keflex therapy. On today's evaluation that is 02/10/2024, patient has been afebrile, patient is breathing comfortably and is currently on room air, patient denies having any significant cough no chest pain shortness of breath, patient denies nausea vomiting or diarrhea and no abdominal pain patient has no worsening pain to the left foot area. No CBC was done today CRP is 3.7 Vanco trough is low is 10.8 Objective - Vital Signs Vital signs: Vital Signs Temp 97.8 F 02/10/24 07:09 Pulse 62 02/10/24 09:34 Resp 16 02/10/24 07:09 BP 100/67 02/10/24 07:09 Pulse Ox 92 L 02/10/24 07:09 FiO2 Intake & Output 02/09/24 02/10/24 02/10/24 18:59 06:59 18:59 Intake Total 1620 590 Balance 1620 590 Intake: Oral 1620 590 Other: Voiding Method Toilet Toilet # Voids 2 # Bowel Movements 0 - Exam GENERAL DESCRIPTION: Middle-age male lying in bed in no distress RESPIRATORY SYSTEM: Unlabored breathing , decreased breath sounds at bases HEART: S1 S2 regular rate and rhythm , ABDOMEN: Soft , no tenderness EXTREMITIES: Left foot is currently dressed - Labs CBC & Chem 7: 02/09/24 07:35 02/09/24 07:35 Labs: Abnormal Lab Results - Last 24 Hours (Table) 02/09/24 02/09/24 02/09/24 Range/Units 12:51 16:58 16:58 ESR 28 H (0-15) mm/Hr POC Glucose (mg/dL) 141 H (70-110) mg/dL C-Reactive Protein 4.1 H (<1.0) mg/dL 02/09/24 02/10/24 Range/Units 17:16 02:26 ESR (0-15) mm/Hr POC Glucose (mg/dL) 134 H (70-110) mg/dL C-Reactive Protein 3.7 H (<1.0) mg/dL Assessment and Plan (1) Cellulitis of left foot Current Visit: Yes Status: Acute Code(s): L03.116 - CELLULITIS OF LEFT LOWER LIMB SNOMED Code(s): 58732786223700621 (2) Foot osteomyelitis, left Current Visit: Yes Status: Acute Code(s): M86.9 - OSTEOMYELITIS, UNSPECIFIED SNOMED Code(s): 9920264659749065 Plan: 1patient presented to hospital with left foot cellulitis in this patient who did have a recent outpatient surgery by his jewellery designer patient describing it to be shaving of the bones patient did have a callus on the lateral aspect of the left foot but not purulent drainage was noticed as significant swelling and redness as well as tenderness to left foot area failing outpatient oral Keflex will need to cover for resistant gram-positive such as MRSA. 2patient has been eval by podiatry planning for surgical I&D later this afternoon culture should be obtained 4patient to continue with vancomycin pharmacy to dose target trough of 15 adjusting antibiotics further on the basis of culture Dictation was produced using [employer] dictation software. please excuse any grammatical, word or spelling errors. Time with Patient: Less than 30
--- NOTE | 2024-02-10 16:49 | P.PN ---
Progress Note - Text Progress Note Date: 02/10/24 Chief Complaint: Left foot pain infection This is a pleasant 43-year-old patient who follows with Dr. Prasad Matthews. Chronic stable medical condition include COPD, diabetes, GERD, hyperlipidemia, essential hypertension, grand mal seizure several years ago, hemorrhoids, psoriasis, previous TIA with no residual. 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 Bipolar. Patient underwent surgery on the left foot and some bone was taken off. He is unclear as to the reason for the same. This was done by physician out of the area. Surgery was done in January 04. About 3 weeks ago patient developed a wound in that area. He did go down to [facility] where he finished 2 weeks of clindamycin about a week ago. Patient now for the last 5 days having increasing pain swelling tenderness at that area. Finally decided to come in. In the ER was started on vancomycin. Patient is a longstanding smoker denies any obvious fever and chills. No change in bowel pattern. Decreased appetite. February 10, 2024: Patient was seen by Dr. Pereyra, podiatry. She did scalpel the area and obtain some pus. Patient will be taken down to the OR later in the day. Discussed with patient. Remains on vancomycin. Active Medications Hydrocodone Bitart/Acetaminophen (Hydrocodone/Apap 10-325mg 1 Each Tab) 1 each PO Q6HR PRN PRN Reason: Pain Last Admin: 02/10/24 05:44 Dose: 1 each Albuterol Sulfate (Albuterol Nebulized 2.5 Mg/3 Ml) 2.5 mg INHALATION RT-Q4H PRN PRN Reason: Shortness Of Breath Last Admin: 02/10/24 09:16 Dose: 2.5 mg Alprazolam (Alprazolam 0.25 Mg Tab) 0.25 mg PO Q6HR PRN PRN Reason: Anxiety Aspirin (Aspirin 81 Mg) 81 mg PO DAILY MARYELLEN Last Admin: 02/10/24 07:47 Dose: Not Given Atorvastatin Calcium (Atorvastatin 80 Mg Tab) 80 mg PO HS MARYELLEN Last Admin: 02/09/24 22:03 Dose: 80 mg Calcium Carbonate/Glycine (Calcium Carbonate 500 Mg Chewable) 1,000 mg PO Q4HR PRN PRN Reason: Dyspepsia Dextrose/Water (Dextrose 50% Syringe 50 Ml) 25 ml IVP PER PROTOCOL PRN; Protocol PRN Reason: Hypoglycemia Dextrose/Water (Dextrose 50% Syringe 50 Ml) 50 ml IVP PER PROTOCOL PRN; Protocol PRN Reason: Hypoglycemia Enoxaparin Sodium (Enoxaparin 40 Mg/0.4 Ml Syringe) 40 mg SQ DAILY [facility] Last Admin: 02/10/24 07:48 Dose: Not Given Famotidine (Famotidine 20 Mg Tab) 40 mg PO BID [facility] Last Admin: 02/10/24 09:02 Dose: 40 mg Fenofibrate (Fenofibrate 160 Mg Tab) 160 mg PO DAILY [facility] Last Admin: 02/10/24 09:02 Dose: 160 mg Fluticasone Propionate (Fluticasone 110 Mcg Inhaler) 2 puff INHALATION RT-BID [facility] Last Admin: 02/10/24 09:16 Dose: 2 puff Gabapentin (Gabapentin 400 Mg Cap) 400 mg PO TID [facility] Last Admin: 02/10/24 16:32 Dose: Not Given Sodium Chloride (Saline 0.9%) 1,000 mls @ 75 mls/hr IV .[id number] [facility] Last Admin: 02/10/24 16:32 Dose: Not Given Vancomycin HCl 1,500 mg/ (Sodium Chloride) 500 mls @ 167 mls/hr IVPB Q8H [facility] Last Admin: 02/10/24 09:06 Dose: 167 mls/hr Insulin Aspart (Insuln Asp Prt/Insulin Aspart 100 Unit/Ml 10 Ml Vial) 18 unit SQ W/SUPPER [facility] Last Admin: 02/10/24 16:32 Dose: Not Given Insulin Aspart (Insuln Asp Prt/Insulin Aspart 100 Unit/Ml 10 Ml Vial) 33 unit SQ W/BRKFST [facility] Last Admin: 02/10/24 07:47 Dose: Not Given Insulin Aspart (Insulin Aspart (Novolog) 100 Unit/Ml Vial) 0 unit SQ AC-TID [facility]; Protocol Last Admin: 02/10/24 16:32 Dose: Not Given Lactulose (Lactulose 20 Gm/30 Ml Cup) 20 gm PO DAILY PRN PRN Reason: Constipation Lamotrigine (Lamotrigine 25 Mg Tab) 75 mg PO BID [facility] Last Admin: 02/10/24 09:01 Dose: 75 mg Lamotrigine (Lamotrigine 100 Mg Tab) 200 mg PO BID [facility] Last Admin: 02/10/24 09:02 Dose: 200 mg Linagliptin (Linagliptin 5 Mg Tablet) 5 mg PO DAILY [facility] Last Admin: 02/10/24 08:20 Dose: Not Given Lisinopril (Lisinopril 20 Mg Tab) 20 mg PO QAM [facility] Last Admin: 02/10/24 08:21 Dose: Not Given Metformin HCl (Metformin 500 Mg Tab) 1,000 mg PO BID-W/MEALS [facility] Last Admin: 02/10/24 16:33 Dose: Not Given Miscellaneous Information (Vancomycin Trough Due 1 Each Misc) 0 each MISCELLANE DIRECTED ONE Stop: 02/11/24 09:01 Morphine Sulfate (Morphine Sulfate 4 Mg/Ml Syringe) 4 mg IVP Q4HR PRN PRN Reason: Pain Last Admin: 02/10/24 09:13 Dose: 4 mg Naloxone HCl (Naloxone 0.4 Mg/Ml 1 Ml Vial) 0.2 mg IV Q2M PRN PRN Reason: Opioid Reversal Nicotine (Nicotine 14mg/24hr Patch) 1 patch TRANSDERM DAILY [facility] Last Admin: 02/10/24 09:03 Dose: Not Given Non-Formulary Medication (Brivaracetam [Briviact]) 50 mg PO BID [facility] Last Admin: 02/10/24 08:20 Dose: Not Given Ondansetron HCl (Ondansetron 4 Mg/2 Ml Vial) 4 mg IVP Q8HR PRN PRN Reason: Nausea And Vomiting Last Admin: 02/10/24 16:38 Dose: 4 mg Oxcarbazepine (Oxcarbazepine 150 Mg Tab) 150 mg PO BID [facility] Last Admin: 02/10/24 09:02 Dose: 150 mg Propranolol HCl (Propranolol 10 Mg Tab) 10 mg PO BID [facility] Last Admin: 02/10/24 08:21 Dose: Not Given Sertraline HCl (Sertraline 100 Mg Tab) 100 mg PO DAILY [facility] Last Admin: 02/10/24 09:02 Dose: 100 mg Tamsulosin HCl (Tamsulosin 0.4 Mg Cap.Er.24h) 0.4 mg PO HS [facility] Last Admin: 02/09/24 22:03 Dose: 0.4 mg Temazepam (Temazepam 15 Mg Cap) 15 mg PO HS PRN PRN Reason: Insomnia Tizanidine HCl (Tizanidine 4 Mg Tab) 4 mg PO TID PRN PRN Reason: Pain Trazodone HCl (Trazodone Hcl 100 Mg Tab) 150 mg PO HS [facility] Last Admin: 02/09/24 22:03 Dose: 150 mg Social history: Patient lives with his parents. Smokes half a pack a day for last 30 years. CBD oil. Alcohol occasionally Physical examination: VITAL SIGNS: 98.9, 69, 16, 160 x 73, 95% room GENERAL: Reclining in bed EYES: Pupils equal. Conjunctiva chelsi l. HEENT: External appearance of nose and ears normal, oral cavity grossly normal. NECK: JVD not raised; masses not palpable. HEART: First and second heart sounds are normal; no edema. LUNGS: Respiratory rate normal; slightly decreased breath sounds. ABDOMEN: Soft, nontender, liver spleen not palpable, no masses palpable. PSYCH: [Alert and oriented x3; mood and affect. Anxious. MUSCULOSKELETAL:No Clubbing/cyanosis;muscles-grossly intact. Left foot swollen compared to the right. Midfoot on the lateral side is also swollen very tender with some fluctuation.. Slightly increased local temperature. Breakdown of s kin on the lateral side. Of the foot INVESTIGATIONS, reviewed in the clinical context: February 09, 2024: White count 8.8 hemoglobin 13.8 platelets 209 potassium 3.8. 5 creatinine 0.75 blood glucose 116 X-ray left foot complete: Soft tissue swelling throughout the foot. Fixation screws in the fourth metacarpal appear intact. Suspected fifth metacarpal base fracture remains present. Assessment plan: -Acute left foot abscess/soft tissue infection, in the foot that underwent surgery on January 04. Exact indication for surgery unclear. Patient 3 weeks ago started having pain and swelling. Did receive clindamycin for 2 weeks of Jung a week ago. Last 5 days symptoms have been worsening.: Uncontrolled Bedside De- kyra was done by Dr. Pereyra-pus was obtained. Patient be taken down to the OR today. IV vancomycin. ID following. -Chronic nicotine dependence cigarette smoker Patient counseled. Nicotine patch -COPD - current smoker Albuterol as needed. Flovent. -Diabetes mellitus type 1 on insulin Januvia. Glucophage. Follow Accu-Cheks with sliding scale -Hyperlipidemia Lofibra -Hypothyroid Synthroid 50 mcg -Bipolar disorder Continue home medication for the same -Essential hypertension Lisinopril -Epilepsy/grand mal seizures. Last episode several years ago. Briviact. Trileptal -Full code Patient going out of the OR later today. By Dr. Pereyra. Discussed. Past Medical History Past Medical History: Asthma, Chest Pain / Angina, COPD, CVA/TIA, Diabetes Mellitus, GERD/Reflux, Hyperlipidemia, Hypertension, Seizure Disorder, Skin Disorder Additional Past Medical History / Comment(s): IDDM type II, grand mal seizures- "last seizure yrs ago", coughing from cigarettes, hemorrhoid, constip ation/diarrhea, hx psoriasis, eczema, back pain, hydrocele. 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, [facility] surgery, sternum partially removed/muscle flap, lumbar puncture 10/03/23 Past Anesthesia/Blood Transfusion Reactions: No Reported Reaction Past Psychological History: Anxiety, Bipolar, Depression, Panic Disorder, Schizophrenia Additional Psychological History / Comment(s): manic depression, paranoia. Smoking Status: Current every day smoker, Light tobacco smoker Past Alcohol Use History: Occasional Additional Past Alcohol Use History / Comment(s): smoking 1/2 PPD, started smoking age 13 Past Drug Use History: None Reported Additional Drug Use History / Comment(s): CBD oil
[2024-02-10] MEDS ORDERED: MIDAZOLAM 2 MG/2 ML VIAL ONE (17:26)
[2024-02-10] MEDS ORDERED: fentaNYL (PF) 50 MCG/ML 2 ML AMP ONE (17:26)
[2024-02-10] MEDS ORDERED: PROPOFOL 10 MG/ML 20 ML VIAL IV ONE (17:26)
[2024-02-10] MEDS: SODIUM CHLORIDE 0.9% 50 ML with ceFAZolin 2,000 MG IV ONE (17:35)
[2024-02-10] MEDS: BUPIVACAINE (PF) 0.5% 30 ML VIAL SQ ONE (17:49)
[2024-02-10] MEDS: LIDOCAINE 1% INJ 10MG/ML (20 ML MDV) SQ ONE (17:50)
--- NOTE | 2024-02-10 18:13 | P.OP ---
Date of Procedure: 02/10/24 Preoperative Diagnosis: 1. Cellulitis left foot 2. Ulceration left foot 3. Osteomyelitis left foot Postoperative Diagnosis: Same as preoperative Procedure(s) Performed: 1. Incision and drainage with debridement of left foot ulcer 2. Bone biopsy left fifth metatarsal Implants: None Anesthesia: MAC Surgeon: Latha Pereyra Estimated Blood Loss (ml): 5 Pathology: other (2 wound cultures were taken and 1 bone culture as well as bone sent to pathology fifth metatarsal) Condition: stable Disposition: PACU Indications for Procedure: This is a 43-year-old male complaining of abscess with pain and swelling to the left foot that has been unresponsive to conservative management with progression of pain with time and deformity. Patient had recently undergone surgical intervention at the end of December by an outside physician. He is failed outpatient management on oral antibiotics. X-rays were concerning for surgical changes versus osteomyelitis to the base of the fifth metatarsal. The patient has chosen surgical correction. Preoperative H&P and lab studies were reviewed, noticed no apparent contraindications to the proposed surgery. Informed consent was obtained. All patient's questions were answered. X-rays were reviewed. Absolutely no guarantees were given or implied. The patient was informed of possible complications and risks including bone and soft tissue infection, delayed healing and need for further surgery, amputation, blood clots and . Absolutely no guarantees were given or implied. Operative Findings: See operative note below. Description of Procedure: Under mild sedation the patient was brought into the operating room and transferred to the operating table in the supine position. Local anesthesia was obtained. The foot was scrubbed prepped and draped in usual aseptic manner. A timeout was performed and the correct foot was identified. No tourniquet was used during this case. First attention was directed to the lateral aspect of the fifth metatarsal base on the left foot. There was open ulceration bleeding with purulent drainage. Small ulceration was appreciated at this area measuring approximately 0.8 x 0.8 x 0.4 cm. Hemostat was used to bluntly probe this area and a clear sinus tract went directly to the fifth metatarsal bone. Purulence was expressed approximately 1 cc. A deep culture was performed. At this time when probing the hemostat I noticed purulence coming out of the more distal aspect of the fifth metatarsal. There was a 0.6 x 0.6 x 0.4 cm ulceration distally. A second culture was taken of the purulence at the site. Cultures were passed off to the back table. Next a 15 blade was used to debride all hyperkeratotic tissue along the lateral left foot. This was extending from the distal lateral metatarsal head all the way to the proximal fifth metatarsal base. All hyperkeratotic tissue was resected down to healthy bleeding subcutaneous tissue. All purulence was drained. At this time a pulse lavage was used to irrigate with copious amounts of saline solution. Next a bone biopsy was taken from the base of the fifth metatarsal. The biopsy core easily fell into the soft bone. I have high concern for osteomyelitis secondary to the structural integrity of the bone. This was very soft. The bone was not visualized but palpable. Bone was sent both to culture and dry cup and pathology in formalin. Sites were both irrigated once again with copious amounts of saline solution. A dressing consisting of Betadine soaked Adaptic, 4 x 4 gauze, ABD, Eliane and Dwight bandage was applied. The patient tolerated the procedure and anesthesia well without complications and was transported to the recovery room with vital signs stable and vascular status intact to both feet. The patient will return to the floor per anesthesia. While in the hospital patient will be followed by myself. Patient was given instructions to keep the dressing clean, dry and intact. He is to partial weight-bear in surgical shoe. Surgical shoe has been ordered today. Postoperative x-rays have been ordered. Patient is to elevate the foot while at rest.
[2024-02-10 19:59] LABS: Glucose,Whole Blood 187 mg/dL (70-110)
--- NOTE | 2024-02-10 20:04 | MR ---
EXAMINATION TYPE: MR foot LT wo/w con DATE OF EXAM: 02/10/2024 1:04 PM CLINICAL INDICATION:Male, 43 years old with history of left foot abscess; PHH, Left distal ball of fo ot proximal to 5th digit COMPARISON: Foot radiograph 02/09/2024 TECHNIQUE: Multiplanar, multisequence MR imaging of the left forefoot was performed administration o f IV gadolinium contrast. MR contrast: IV Contrast: 7.5 cc Gadavist FINDINGS: No organizing fluid collection identified within the foot there is phlegmonous change near the fifth metatarsal base with abnormal enhancement of the fifth metatarsal suggestive of osteomyelitis withe c ortical defect series 601 image 30. There is diffuse edema throughout the subcutaneous tissues of the foot. Abnormal edema in the base of the second metatarsale with edema on inversion recovery sequence s and a curvilinear line suggestive of fracture series 501 image 11. Fixation hardware in the fourth metatarsal with susceptibility artifact. IMPRESSION: 1. No organizing fluid collection identified within the foot. 2. Diffuse Phlegmonous change near the fifth metatarsal base with cortical erosion and enhancement c ompatible with osteomyelitis. 3. The bony edema in the base of the second metatarsal with curvilinear line on inversion recovery s equences suggestive of fracture.
--- NOTE | 2024-02-10 20:07 | XR ---
EXAMINATION TYPE: XR foot complete LT DATE OF EXAM: 02/10/2024 6:34 PM CLINICAL INDICATION:Male, 43 years old with history of Post Op films bone biopsy [facility]th [facility] base; [facility] COMPARISON: X-rays 02/09/2024 TECHNIQUE: Three views left foot were obtained. FINDINGS: Redemonstration osseous irregularity and lucency at the base of the fifth metatarsal, with suggestion of overlying mild soft tissue irregularity, similar to previous. 8. Suspected fracture of the base of the second metatarsal is not clearly seen by this exam with poss ible mild superimposed postoperative changes. 2 screws in the distal fourth metatarsal appear intact with alignment unchanged. No acute bony abnormality is otherwise seen. Soft tissue swelling throughout the foot again suggested. IMPRESSION: Overall similar exam findings compared to 02/09/2024, including osseous deformity and lucency at the b ase of the fifth metatarsal (consider underlying infection, neoplasm, and/or fracture), with probable mild superimposed postoperative changes.
[2024-02-11 06:58] LABS: Glucose,Whole Blood 120 mg/dL (70-110)
--- NOTE | 2024-02-11 08:09 | P.PN ---
Subjective Progress Note Date: 02/11/24 Principal diagnosis: Status post incision and drainage with bone biopsy foot on 02/10/2024 HPI: Patient seen resting comfortably in bed this morning. He has an appetite. He states his pain is 0 out of 10 to the left foot. He states his pain is greatly improved since surgical intervention. Dressing is dry clean and intact to the left lower extremity today. He denies any nausea, vomiting, fever, chills, shortness of breath, calf pain, chest pain. Lower extremity exam: Dressing left intact to the left lower extremity. A&O x 3, NAD Vascular: Nonpalpable DP and PT pulse to the left foot. CFT less than 3 seconds to all digits. Derm: Surgical dressing left intact today. This is to be changed tomorrow. Neuro: Light touch sensation is decreased to the level of the midfoot. MSK: Gross range of motion intact to exposed digits. No pain with compression of the calves. Calves are soft and supple. Assessment: 1. Ulceration left foot 2. Cellulitis left foot 3. Osteomyelitis fifth metatarsal left foot 4. Diabetes mellitus with peripheral neuropathy Plan: -Discussed patient's clinical and radiographic findings in detail. X-rays taken postoperatively reviewed. You can see the clear biopsy site in the fifth metatarsal base. -Intraoperatively about 1 cc of purulence was expressed. Cultures are currently pending. When taking the bone biopsy the bone was noted to be extremely soft. I anticipate this being infected. Bone is clearly exposed. Patient is being followed closely by infectious disease. Patient is refusing any further surgical intervention and will likely require IV antibiotics upon discharge. -Will continue to follow closely. Latha Pereyra DPM, [facility] Podiatric Surgery Objective - Vital Signs Vital signs: Vital Signs Temp 98.4 F 02/11/24 06:54 Pulse 75 02/11/24 06:54 Resp 18 02/11/24 06:54 BP 119/72 02/11/24 06:54 Pulse Ox 91 L 02/11/24 06:54 FiO2 Intake & Output 02/10/24 02/11/24 02/11/24 18:59 06:59 18:59 Intake Total 450 Output Total 5 Balance 445 Intake: IV 450 Output: Estimated Blood Loss 5 Other: Voiding Method Toilet Toilet # Voids 1 # Bowel Movements 0 - Labs CBC & Chem 7: 02/09/24 07:35 02/09/24 07:35 Labs: Abnormal Lab Results - Last 24 Hours (Table) 02/10/24 02/10/24 02/11/24 Range/Units 16:24 19:58 06:57 POC Glucose (mg/dL) 119 H 187 H 120 H (70-110) mg/dL Microbiology - Last 24 Hours (Table) 02/09/24 17:02 Blood Culture - Preliminary Blood
[2024-02-11] MEDS: VANCOMYCIN TROUGH DUE 1 EACH MISC MISCELLANE ONE (09:10)
[2024-02-11 11:28] LABS: Basophils % (A) 1 %; Eosinophils # (A) 0.3 k/uL (0-0.7); Eosinophils % (A) 4 %; HGB 12.5 gm/dL (13.0-17.5); Lymphocytes # (A) 1.1 k/uL (1.0-4.8); Lymphocytes % (A) 12 %; MCHC 35.7 g/dL (31.0-37.0); MCV 92.4 fL (80.0-100.0); Monocytes # (A) 0.6 k/uL (0-1.0); Monocytes % (A) 7 %; Neutrophils # (A) 6.8 k/uL (1.3-7.7); Neutrophils % (A) 75 %; Platelet Count 195 k/uL (150-450); RBC 3.79 m/uL (4.30-5.90); WBC 9.1 k/uL (3.8-10.6)
[2024-02-11 11:35] LABS: Glucose,Whole Blood 108 mg/dL (70-110)
[2024-02-11 11:43] LABS: African American GFR (CKD) >90 (>60 ml/min/1.73 sqM); Anion Gap 4 mmol/L; Blood Urea Nitrogen 8 mg/dL (9-20); Calcium 8.9 mg/dL (8.4-10.2); Carbon Dioxide 29 mmol/L (22-30); Chloride 109 mmol/L (98-107); Glucose 101 mg/dL (74-99); Non-African American GFR(CKD) >90 (>60 ml/min/1.73 sqM); Potassium 4.6 mmol/L (3.5-5.1); Sodium 142 mmol/L (137-145)
--- NOTE | 2024-02-11 15:39 | P.PN ---
Progress Note - Text Progress Note Date: 02/11/24 Chief Complaint: Left foot pain infection This is a pleasant 43-year-old patient who follows with Dr. Prasad Matthews. Chronic stable medical condition include COPD, diabetes, GERD, hyperlipidemia, essential hypertension, grand mal seizure several years ago, hemorrhoids, psoriasis, previous TIA with no residual. 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 Bipolar. Patient underwent surgery on the left foot and some bone was taken off. He is unclear as to the reason for the same. This was done by physician out of the area. Surgery was done in January 04. About 3 weeks ago patient developed a wound in that area. He did go down to [facility] where he finished 2 weeks of clindamycin about a week ago. Patient now for the last 5 days having increasing pain swelling tenderness at that area. Finally decided to come in. In the ER was started on vancomycin. Patient is a longstanding smoker denies any obvious fever and chills. No change in bowel pattern. Decreased appetite. February 10, 2024: Patient was seen by Dr. Pereyra, podiatry. She did scalpel the area and obtain some pus. Patient will be taken down to the OR later in the day. Discussed with patient. Remains on vancomycin. February 11, 2024: Patient underwent surgery of the left foot by Dr. Pereyra yesterday. Dressing in place. Some pain. On IV vancomycin. Cultures pending. Discussed with Dr. Pereyra. Patient will probably need the left metatarsal to be removed. Discussed with patient. Agreeable for the same. He does want to follow-up with Dr. Pereyra outpatient. Antibiotics being coordinated by ID. Patient again reminded about non-smoking. Oral intake fair Active Medications Hydrocodone Bitart/Acetaminophen (Hydrocodone/Apap 10-325mg 1 Each Tab) 1 each PO Q6HR PRN PRN Reason: Pain Last Admin: 02/11/24 08:45 Dose: 1 each Albuterol Sulfate (Albuterol Nebulized 2.5 Mg/3 Ml) 2.5 mg INHALATION RT-Q4H PRN PRN Reason: Shortness Of Breath Last Admin: 02/10/24 09:16 Dose: 2.5 mg Alprazolam (Alprazolam 0.25 Mg Tab) 0.25 mg PO Q6HR PRN PRN Reason: Anxiety Aspirin (Aspirin 81 Mg) 81 mg PO DAILY [facility] Last Admin: 02/11/24 08:45 Dose: 81 mg Atorvastatin Calcium (Atorvastatin 80 Mg Tab) 80 mg PO HS [facility] Last Admin: 02/10/24 19:55 Dose: 80 mg Calcium Carbonate/Glycine (Calcium Carbonate 500 Mg Chewable) 1,000 mg PO Q4HR PRN PRN Reason: Dyspepsia Dextrose/Water (Dextrose 50% Syringe 50 Ml) 25 ml IVP PER PROTOCOL PRN; Protocol PRN Reason: Hypoglycemia Dextrose/Water (Dextrose 50% Syringe 50 Ml) 50 ml IVP PER PROTOCOL PRN; Protocol PRN Reason: Hypoglycemia Enoxaparin Sodium (Enoxaparin 40 Mg/0.4 Ml Syringe) 40 mg SQ DAILY [facility] Last Admin: 02/11/24 08:45 Dose: 40 mg Famotidine (Famotidine 20 Mg Tab) 40 mg PO BID [facility] Last Admin: 02/11/24 08:45 Dose: 40 mg Fenofibrate (Fenofibrate 160 Mg Tab) 160 mg PO DAILY [facility] Last Admin: 02/11/24 08:45 Dose: 160 mg Fluticasone Propionate (Fluticasone 110 Mcg Inhaler) 2 puff INHALATION RT-BID [facility] Last Admin: 02/11/24 08:47 Dose: 2 puff Gabapentin (Gabapentin 400 Mg Cap) 400 mg PO TID [facility] Last Admin: 02/11/24 08:45 Dose: 400 mg Sodium Chloride (Saline 0.9%) 1,000 mls @ 75 mls/hr IV .[id number] [facility] Last Admin: 02/11/24 08:50 Dose: 75 mls/hr Vancomycin HCl 1,500 mg/ (Sodium Chloride) 500 mls @ 167 mls/hr IVPB Q8H [facility] Last Admin: 02/11/24 09:10 Dose: 167 mls/hr Insulin Aspart (Insuln Asp Prt/Insulin Aspart 100 Unit/Ml 10 Ml Vial) 18 unit SQ W/SUPPER [facility] Last Admin: 02/10/24 16:32 Dose: Not Given Insulin Aspart (Insuln Asp Prt/Insulin Aspart 100 Unit/Ml 10 Ml Vial) 33 unit SQ W/BRKFST [facility] Last Admin: 02/11/24 07:12 Dose: Not Given Insulin Aspart (Insulin Aspart (Novolog) 100 Unit/Ml Vial) 0 unit SQ AC-TID [facility]; Protocol Last Admin: 02/11/24 12:02 Dose: Not Given Lactulose (Lactulose 20 Gm/30 Ml Cup) 20 gm PO DAILY PRN PRN Reason: Constipation Lamotrigine (Lamotrigine 25 Mg Tab) 75 mg PO BID [facility] Last Admin: 02/11/24 08:45 Dose: 75 mg Lamotrigine (Lamotrigine 100 Mg Tab) 200 mg PO BID [facility] Last Admin: 02/11/24 08:45 Dose: 200 mg Linagliptin (Linagliptin 5 Mg Tablet) 5 mg PO DAILY [facility] Last Admin: 02/11/24 08:49 Dose: 5 mg Lisinopril (Lisinopril 20 Mg Tab) 20 mg PO QAM [facility] Last Admin: 02/11/24 08:45 Dose: 20 mg Metformin HCl (Metformin 500 Mg Tab) 1,000 mg PO BID-W/MEALS [facility] Last Admin: 02/11/24 08:45 Dose: 1,000 mg Miscellaneous Information (Vancomycin Trough Due 1 Each Misc) 0 each MISCELLANE DIRECTED ONE Stop: 02/12/24 09:01 Morphine Sulfate (Morphine Sulfate 4 Mg/Ml Syringe) 4 mg IVP Q4HR PRN PRN Reason: Pain Last Admin: 02/11/24 12:22 Dose: 4 mg Naloxone HCl (Naloxone 0.4 Mg/Ml 1 Ml Vial) 0.2 mg IV Q2M PRN PRN Reason: Opioid Reversal Nicotine (Nicotine 14mg/24hr Patch) 1 patch TRANSDERM DAILY [facility] Last Admin: 02/11/24 07:52 Dose: Not Given Non-Formulary Medication (Brivaracetam [Briviact]) 50 mg PO BID [facility] Last Admin: 02/11/24 07:12 Dose: Not Given Ondansetron HCl (Ondansetron 4 Mg/2 Ml Vial) 4 mg IVP Q8HR PRN PRN Reason: Nausea And Vomiting Last Admin: 02/10/24 16:38 Dose: 4 mg Oxcarbazepine (Oxcarbazepine 150 Mg Tab) 150 mg PO BID [facility] Last Admin: 02/11/24 08:49 Dose: 150 mg Propranolol HCl (Propranolol 10 Mg Tab) 10 mg PO BID [facility] Last Admin: 02/11/24 08:49 Dose: 10 mg Sertraline HCl (Sertraline 100 Mg Tab) 100 mg PO DAILY [facility] Last Admin: 02/11/24 08:45 Dose: 100 mg Tamsulosin HCl (Tamsulosin 0.4 Mg Cap.Er.24h) 0.4 mg PO [facility] Last Admin: 02/10/24 19:55 Dose: 0.4 mg Temazepam (Temazepam 15 Mg Cap) 15 mg PO HS PRN PRN Reason: Insomnia Tizanidine HCl (Tizanidine 4 Mg Tab) 4 mg PO TID PRN PRN Reason: Pain Trazodone HCl (Trazodone Hcl 100 Mg Tab) 150 mg PO HS [facility] Last Admin: 02/10/24 19:57 Dose: 150 mg Social history: Patient lives with his parents. Smokes half a pack a day for last 30 years. CBD oil. Alcohol occasionally Physical examination: VITAL SIGNS: 98.2, 65, 16, 123 x 79, 94% room air GENERAL: Resting in bed at EYES: Pupils equal. Conjunctiva chelsi l. HEENT: External appearance of nose and ears normal, oral cavity grossly normal. NECK: JVD not raised; masses not palpable. HEART: First and second heart sounds are normal; no edema. LUNGS: Respiratory rate normal; slightly decreased breath sounds. ABDOMEN: Soft, nontender, liver spleen not palpable, no masses palpable. PSYCH: [Alert and oriented x3; mood and affect. Anxious. MUSCULOSKELETAL:No Clubbing/cyanosis;muscles-grossly intact. Left foot: Dressing INVESTIGATIONS, reviewed in the clinical context: February 11, 2024: White count 9.1 hemoglobin 12.5 platelets 195 potassium 4.6 creatinine 0.73 February 09, 2024: White count 8.8 hemoglobin 13.8 platelets 209 potassium 3.8. 5 creatinine 0.75 blood glucose 116 X-ray left foot complete: Soft tissue swelling throughout the foot. Fixation screws in the fourth metacarpal appear intact. Suspected fifth metacarpal base fracture remains present. Assessment plan: -Acute osteomyelitis of left foot metatarsal Bone culture pending -Acute left foot abscess/soft tissue infection, in the foot that underwent surgery on January 04. Exact indication for surgery unclear. Patient 3 weeks ago started having pain and swelling. Did receive clindamycin for 2 weeks of Jung a week ago. Last 5 days symptoms have been worsening.: Uncontrolled Bedside De- kyra was done by Dr. Pereyra-pus was obtained. Liter: Incision and drainage with debridement of left foot ulcer. And bone biopsy of left fifth metatarsal done. Cultures pending IV vancomycin. ID following. -Chronic nicotine dependence cigarette smoker Patient counseled. Nicotine patch -COPD - current smoker Albuterol as needed. Flovent. -Diabetes mellitus type 1 on insulin Januvia. Glucophage. Follow Accu-Cheks with sliding scale -Hyperlipidemia Lofibra -Hypothyroid Synthroid 50 mcg -Bipolar disorder Continue home medication for the same -Essential hypertension Lisinopril -Epilepsy/grand mal seizures. Last episode several years ago. Briviact. Trileptal -Full code Discussed with patient and Dr. Pereyra. Pending cultures. Patient will have his left metatarsal removed by Dr. Pereyra down the road. Past Medical History Past Medical History: Asthma, Chest Pain / Angina, COPD, CVA/TIA, Diabetes Mellitus, GERD/Reflux, Hyperlipidemia, Hypertension, Seizure Disorder, Skin Disorder Additional Past Medical History / Comment(s): IDDM type II, grand mal seizures- "last seizure yrs ago", coughing from cigarettes, hemorrhoid, constipation/diarrhea, hx psoriasis, eczema, back pain, hydrocele. 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, [facility] surgery, sternum partially removed/muscle flap, lumbar puncture 10/03/23 Past Anesthesia/Blood Transfusion Reactions: No Reported Reaction Past Psychological History: Anxiety, Bipolar, Depression, Panic Disorder, Schizophrenia Additional Psychological History / Comment(s): manic depression, paranoia. Smoking Status: Current every day smoker, Light tobacco smoker Past Alcohol Use History: Occasional Additional Past Alcohol Use History / Comment(s): smoking 1/2 PPD, started smoking age 13 Past Drug Use History: None Reported Additional Drug Use History / Comment(s): CBD oil
[2024-02-11 17:01] LABS: Glucose,Whole Blood 176 mg/dL (70-110)
[2024-02-11 20:15] LABS: Glucose,Whole Blood 141 mg/dL (70-110)
[2024-02-11] MEDS: Brivaracetam [Briviact] 50 MG Tablet PO SCH (22:58)
--- NOTE | 2024-02-12 07:25 | P.PN ---
Subjective Progress Note Date: 02/12/24 Principal diagnosis: Status post incision and drainage with bone biopsy foot on 02/10/2024 HPI: Patient seen resting comfortably in bed this morning. He states his pain is 0 out of 10 to the left foot. Dressing is dry clean and intact to the left lower extremity today. Patient would like to follow-up with myself upon discharge. Patient is eager to be discharged. He denies any nausea, vomiting, fever, chills, shortness of breath, calf pain, chest pain. Lower extremity exam: A&O x 3, NAD Vascular: Nonpalpable DP and PT pulse to the left foot. CFT less than 3 seconds to all digits. Derm: Surgical dressing removed today. Distal left foot ulceration has epithelialize d. Proximal left foot ulceration measures 1.0 x 0.8 x 1.0. This does probe to bone. Healthy epithelialized borders and granular wound base are appreciated. All erythema has resolved. EM edema has greatly resolved and skin tension lines are now up visualized. Significant improvement in 2 days. Neuro: Light touch sensation is decreased to the level of the midfoot. MSK: Gross range of motion intact to exposed digits. No pain with compression of the calves. Calves are soft and supple. Assessment: 1. Ulceration left foot 2. Cellulitis left foot -resolving 3. Osteomyelitis fifth metatarsal left foot 4. Diabetes mellitus with peripheral neuropathy Plan: -Discussed patient's clinical and radiographic findings in detail. -Dressings changed today. Significant improvement in all erythema and edema to the left foot. No purulent drainage expressed. No signs of fluctuance. Ulcer ation is small and healthy. Dressing consisting of Betadine, gauze, Eliane, Dwight bandage. Patient will require every other day dressing changes upon discharge. - Cultures are still pending. Preliminary cultures showing growth. Bone biopsy pending. When taking the bone biopsy the bone was noted to be extremely soft. I anticipate this being infected. Bone is clearly exposed. Patient is being followed closely by infectious disease. Discussed outpatient IV antibiotics with patient today. Infectious disease will discuss this in greater detail with him I told him. My recommendation pending bone cultures is fifth metatarsal base amputation with tendon transfer as outpatient. Patient is cleared to discharge from podiatric standpoint pending infectious disease recommendation. -Will continue to follow closely. Latha Pereyra DPM, AACFAS Podiatric Surgery Objective - Vital Signs Vital signs: Vital Signs Temp 99.2 F 02/12/24 02:00 Pulse 73 02/12/24 02:00 Resp 16 02/12/24 02:00 BP 104/66 02/12/24 02:00 Pulse Ox 93 L 02/12/24 02:00 FiO2 Intake & Output 02/11/24 02/12/24 02/12/24 18:59 06:59 18:59 Intake Total 750 Output Total 375 Balance 375 Intake: Intake, IV Titration 750 Amount Sodium Chloride 0.9% 1, 750 000 ml @ 75 mls/hr IV . [id number] MARYELLEN Rx#:[id number] Output: Urine 375 Other: # Voids 3 3 - Labs CBC & Chem 7: 02/11/24 11:12 02/11/24 11:12 Labs: Abnormal Lab Results - Last 24 Hours (Table) 02/11/24 02/11/24 02/11/24 Range/Units 11:12 11:12 11:12 RBC 3.79 L (4.30-5.90) m/uL Hgb 12.5 L (13.0-17.5) gm/dL Hct 35.0 L (39.0-53.0) % Chloride 109 H (98-107) mmol/L BUN 8 L (9-20) mg/dL Glucose 101 H (74-99) mg/dL POC Glucose (mg/dL) (70-110) mg/dL Vancomycin Trough 38.8 H* ug/mL 02/11/24 02/11/24 Range/Units 17:00 20:13 RBC (4.30-5.90) m/uL Hgb (13.0-17.5) gm/dL Hct (39.0-53.0) % Chloride (98-107) mmol/L BUN (9-20) mg/dL Glucose (74-99) mg/dL POC Glucose (mg/dL) 176 H 141 H (70-110) mg/dL Vancomycin Trough ug/mL Microbiology - Last 24 Hours (Table) 02/09/24 17:02 Blood Culture - Preliminary Blood 02/10/24 17:56 Gram Stain - Preliminary Foot - Left 02/10/24 17:56 Gram Stain - Preliminary Foot - Left
[2024-02-12 07:39] LABS: Glucose,Whole Blood 139 mg/dL (70-110)
[2024-02-12] MEDS: VANCOMYCIN TROUGH DUE 1 EACH MISC MISCELLANE ONE (11:02)
[2024-02-12 12:33] LABS: Glucose,Whole Blood 67 mg/dL (70-110)
[2024-02-12 13:13] LABS: Glucose,Whole Blood 96 mg/dL (70-110)
--- NOTE | 2024-02-12 16:02 | P.PN ---
Subjective Progress Note Date: 02/11/24 Principal diagnosis: Reason for follow-up is left diabetic foot infection Patient is a 43-year-old male with a past medical history significant for diabetes mellitus hypertension hyperlipidemia seizure disorder CVA TIA COPD patient presenting to the hospital for evaluation of increasing swelling redness and pain to the left foot area apparently the patient recently did have surgery done by his pump operator and failing outpatient oral Keflex therapy. Patient is status post I&D and debridement of the left foot ulcer and wound biopsy of the left fifth metatarsal completed on 02/10/2024. On today's evaluation that is 02/11/2024,the patient denies any fever or any chills, patient is breathing comfortably on room air, the patient denies chest pain shortness of breath and no significant cough, patient denies abdominal pain, no nausea vomiting or diarrhea. Patient denies any worsening pain to the left foot area Patient white count is 9.1, creatinine 0.73 Vanco trough was 38.8 Objective - Vital Signs Vital signs: Vital Signs Temp 98.2 F 02/11/24 11:22 Pulse 65 02/11/24 11:22 Resp 16 02/11/24 11:22 BP 123/79 02/11/24 11:22 Pulse Ox 94 L 02/11/24 11:22 FiO2 Intake & Output 02/10/24 02/11/24 02/11/24 18:59 06:59 18:59 Intake Total 450 Output Total 5 Balance 445 Intake: IV 450 Output: Estimated Blood Loss 5 Other: Voiding Method Toilet Toilet # Voids 1 # Bowel Movements 0 - Exam GENERAL DESCRIPTION: Middle-age male lying in bed in no distress RESPIRATORY SYSTEM: Unlabored breathing , decreased breath sounds at bases HEART: S1 S2 regular rate and rhythm , ABDOMEN: Soft , no tenderness EXTREMITIES: Left foot is currently dressed - Labs CBC & Chem 7: 02/11/24 11:12 02/11/24 11:12 Labs: Abnormal Lab Results - Last 24 Hours (Table) 02/10/24 02/10/24 02/11/24 Range/Units 16:24 19:58 06:57 RBC (4.30-5.90) m/uL Hgb (13.0-17.5) gm/dL Hct (39.0-53.0) % Chloride (98-107) mmol/L BUN (9-20) mg/dL Glucose (74-99) mg/dL POC Glucose (mg/dL) 119 H 187 H 120 H (70-110) mg/dL Vancomycin Trough ug/mL 02/11/24 02/11/24 02/11/24 Range/Units 11:12 11:12 11:12 RBC 3.79 L (4.30-5.90) m/uL Hgb 12.5 L (13.0-17.5) gm/dL Hct 35.0 L (39.0-53.0) % Chloride 109 H (98-107) mmol/L BUN 8 L (9-20) mg/dL Glucose 101 H (74-99) mg/dL POC Glucose (mg/dL) (70-110) mg/dL Vancomycin Trough 38.8 H* ug/mL Microbiology - Last 24 Hours (Table) 02/10/24 17:56 Gram Stain - Preliminary Foot - Left 02/09/24 17:02 Blood Culture - Preliminary Blood Assessment and Plan (1) Cellulitis of left foot Current Visit: Yes Status: Acute Code(s): L03.116 - CELLULITIS OF LEFT LOWER LIMB SNOMED Code(s): 29385944921518370 (2) Foot osteomyelitis, left Current Visit: Yes Status: Acute Code(s): M86.9 - OSTEOMYELITIS, UNSPECIFIED SNOMED Code(s): 1962193659332619 Plan: 1patient presented to hospital with left foot cellulitis in this patient who did have a recent outpatient surgery by his pump operator patient describing it to be shaving of the bones patient did have a callus on the lateral aspect of the left foot but not purulent drainage was noticed as significant swelling and redness as well as tenderness to left foot area failing outpatient oral Keflex will need to cover for resistant gram-positive such as MRSA. 2patient is s/p I&D and bone biopsy of the left fifth metatarsal with cultures currently pending 4patient to continue with vancomycin pharmacy to dose, Vanco dosing need to be adjusted to keep the trough around 15 and watch his kidney function closely Dictation was produced using [employer] dictation software. please excuse any grammatical, word or spelling errors. Time with Patient: Less than 30
--- NOTE | 2024-02-12 16:03 | P.PN ---
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 Patient is status post I&D and debridement of the left foot ulcer and wound biopsy of the left fifth metatarsal completed on 02/10/2024. On today's evaluation that is 02/12/2024,the patient remains to be afebrile, patient is on room air not requiring supplemental oxygen and denies any shortness of breath no chest pain or cough.Patient denies having any nausea or vomiting, no abdominal pain and no diarrhea has been reported patient pain to the left foot has decreased intensity no drainage Patient cultures currently presumptive MRSA Vanco trough is 17.4 Objective - Vital Signs Vital signs: Vital Signs Temp 98 F 02/12/24 07:35 Pulse 66 02/12/24 07:35 Resp 16 02/12/24 07:35 BP 132/74 02/12/24 07:35 Pulse Ox 94 L 02/12/24 10:16 FiO2 Intake & Output 02/11/24 02/12/24 02/12/24 18:59 06:59 18:59 Intake Total 750 Output Total 375 Balance 375 Intake: Intake, IV Titration 750 Amount Sodium Chloride 0.9% 1, 750 000 ml @ 75 mls/hr IV . [id number] MARYELLEN Rx#:[id number] Output: Urine 375 Other: # Voids 3 3 - Exam GENERAL DESCRIPTION: Middle-age male lying in bed in no distress RESPIRATORY SYSTEM: Unlabored breathing , decreased breath sounds at bases HEART: S1 S2 regular rate and rhythm , ABDOMEN: Soft , no tenderness EXTREMITIES: Left foot is currently dressed - Labs CBC & Chem 7: 02/11/24 11:12 02/11/24 11:12 Labs: Abnormal Lab Results - Last 24 Hours (Table) 02/11/24 02/11/24 02/11/24 Range/Units 11:12 11:12 11:12 RBC 3.79 L (4.30-5.90) m/uL Hgb 12.5 L (13.0-17.5) gm/dL Hct 35.0 L (39.0-53.0) % Chloride 109 H (98-107) mmol/L BUN 8 L (9-20) mg/dL Glucose 101 H (74-99) mg/dL POC Glucose (mg/dL) (70-110) mg/dL Vancomycin Trough 38.8 H* ug/mL 02/11/24 02/11/24 02/12/24 Range/Units 17:00 20:13 07:38 RBC (4.30-5.90) m/uL Hgb (13.0-17.5) gm/dL Hct (39.0-53.0) % Chloride (98-107) mmol/L BUN (9-20) mg/dL Glucose (74-99) mg/dL POC Glucose (mg/dL) 176 H 141 H 139 H (70-110) mg/dL Vancomycin Trough ug/mL Microbiology - Last 24 Hours (Table) 02/09/24 17:02 Blood Culture - Preliminary Blood 02/10/24 17:56 Gram Stain - Preliminary Foot - Left 02/10/24 17:56 Gram Stain - Preliminary Foot - Left Assessment and Plan (1) Cellulitis of left foot Current Visit: Yes Status: Acute Code(s): L03.116 - CELLULITIS OF LEFT LOWER LIMB SNOMED Code(s): 25865875680185768 (2) Foot osteomyelitis, left Current Visit: Yes Status: Acute Code(s): M86.9 - OSTEOMYELITIS, UNSPECIFIED SNOMED Code(s): 7857460923815946 Plan: 1patient presented to hospital with left foot cellulitis in this patient who did have a recent outpatient surgery by his river crossing supervisor patient describing it to be shaving of the bones patient did have a callus on the lateral aspect of the left foot but not purulent drainage was noticed as significant swelling and redness as well as tenderness to left foot area failing outpatient oral Keflex will need to cover for resistant gram-positive such as MRSA. 2patient is s/p I&D and bone biopsy of the left fifth metatarsal with cultures currently growing presumptive MRSA 4patient to continue with vancomycin pharmacy to dose, dose has been adjusted trough is currently 17 we will order PICC line for outpatient IV antibiotic therapy Dictation was produced using [employer] software. please excuse any grammatical, word or spelling errors. Time with Patient: Less than 30
--- NOTE | 2024-02-12 16:36 | P.PN ---
Progress Note - Text Progress Note Date: 02/12/24 Chief Complaint: Left foot pain infection This is a pleasant 43-year-old patient who follows with Dr. Prasad Matthews. Chronic stable medical condition include COPD, diabetes, GERD, hyperlipidemia, essential hypertension, grand mal seizure several years ago, hemorrhoids, psoriasis, previous TIA with no residual. 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 Bipolar. Patient underwent surgery on the left foot and some bone was taken off. He is unclear as to the reason for the same. This was done by physician out of the area. Surgery was done in January 04. About 3 weeks ago patient developed a wound in that area. He did go down to [facility] where he finished 2 weeks of clindamycin about a week ago. Patient now for the last 5 days having increasing pain swelling tenderness at that area. Finally decided to come in. In the ER was started on vancomycin. Patient is a longstanding smoker denies any obvious fever and chills. No change in bowel pattern. Decreased appetite. February 10, 2024: Patient was seen by Dr. Pereyra, podiatry. She did scalpel the area and obtain some pus. Patient will be taken down to the OR later in the day. Discussed with patient. Remains on vancomycin. February 11, 2024: Patient underwent surgery of the left foot by Dr. Pereyra yesterday. Dressing in place. Some pain. On IV vancomycin. Cultures pending. Discussed with Dr. Pereyra. Patient will probably need the left metatarsal to be removed. Discussed with patient. Agreeable for the same. He does want to follow-up with Dr. Pereyra outpatient. Antibiotics being coordinated by ID. Patient again reminded about non-smoking. Oral intake fair February 11: Left foot in a dressing. Pain controlled. Oral intake fair. Cultures growing presumptive MRSA and Staphylococcuslugdunenis. Blood cultures negative till now. On IV vancomycin. By Dr. Pereyra from podiatry. For outpatient removal of metatarsal. Home antibiotics being arranged per Dr. Coley pending bone culture results Active Medications Hydrocodone Bitart/Acetaminophen (Hydrocodone/Apap 10-325mg 1 Each Tab) 1 each PO Q6HR PRN PRN Reason: Pain Last Admin: 02/12/24 06:34 Dose: 1 each Albuterol Sulfate (Albuterol Nebulized 2.5 Mg/3 Ml) 2.5 mg INHALATION RT-Q4H PRN PRN Reason: Shortness Of Breath Last Admin: 02/10/24 09:16 Dose: 2.5 mg Alprazolam (Alprazolam 0.25 Mg Tab) 0.25 mg PO Q6HR PRN PRN Reason: Anxiety Aspirin (Aspirin 81 Mg) 81 mg PO DAILY [facility] Last Admin: 02/12/24 08:45 Dose: 81 mg Atorvastatin Calcium (Atorvastatin 80 Mg Tab) 80 mg PO HS [facility] Last Admin: 02/11/24 21:57 Dose: 80 mg Calcium Carbonate/Glycine (Calcium Carbonate 500 Mg Chewable) 1,000 mg PO Q4HR PRN PRN Reason: Dyspepsia Dextrose/Water (Dextrose 50% Syringe 50 Ml) 25 ml IVP PER PROTOCOL PRN; Protocol PRN Reason: Hypoglycemia Dextrose/Water (Dextrose 50% Syringe 50 Ml) 50 ml IVP PER PROTOCOL PRN; Protocol PRN Reason: Hypoglycemia Enoxaparin Sodium (Enoxaparin 40 Mg/0.4 Ml Syringe) 40 mg SQ DAILY [facility] Last Admin: 02/12/24 08:46 Dose: 40 mg Famotidine (Famotidine 20 Mg Tab) 40 mg PO BID [facility] Last Admin: 02/12/24 08:45 Dose: 40 mg Fenofibrate (Fenofibrate 160 Mg Tab) 160 mg PO DAILY [facility] Last Admin: 02/12/24 08:46 Dose: 160 mg Fluticasone Propionate (Fluticasone 110 Mcg Inhaler) 2 puff INHALATION RT-BID [facility] Last Admin: 02/12/24 08:34 Dose: 2 puff Gabapentin (Gabapentin 400 Mg Cap) 400 mg PO TID [facility] Last Admin: 02/12/24 15:29 Dose: 400 mg Sodium Chloride (Saline 0.9%) 1,000 mls @ 75 mls/hr IV .[id number] [facility] Last Admin: 02/12/24 11:01 Dose: Not Given Vancomycin HCl 1,500 mg/ (Sodium Chloride) 500 mls @ 167 mls/hr IVPB Q8H [facility] Last Admin: 02/12/24 10:50 Dose: 167 mls/hr Insulin Aspart (Insuln Asp Prt/Insulin Aspart 100 Unit/Ml 10 Ml Vial) 18 unit SQ W/SUPPER [facility] Last Admin: 02/11/24 17:40 Dose: 18 unit Insulin Aspart (Insuln Asp Prt/Insulin Aspart 100 Unit/Ml 10 Ml Vial) 33 unit SQ W/BRKFST [facility] Last Admin: 02/12/24 08:46 Dose: 20 unit Insulin Aspart (Insulin Aspart (Novolog) 100 Unit/Ml Vial) 0 unit SQ AC-TID [facility]; Protocol Last Admin: 02/12/24 12:47 Dose: Not Given Lactulose (Lactulose 20 Gm/30 Ml Cup) 20 gm PO DAILY PRN PRN Reason: Constipation Lamotrigine (Lamotrigine 25 Mg Tab) 75 mg PO BID [facility] Last Admin: 02/12/24 08:46 Dose: 75 mg Lamotrigine (Lamotrigine 100 Mg Tab) 200 mg PO BID [facility] Last Admin: 02/12/24 08:46 Dose: 200 mg Linagliptin (Linagliptin 5 Mg Tablet) 5 mg PO DAILY [facility] Last Admin: 02/12/24 08:45 Dose: 5 mg Lisinopril (Lisinopril 20 Mg Tab) 20 mg PO QAM [facility] Last Admin: 02/12/24 08:46 Dose: 20 mg Metformin HCl (Metformin 500 Mg Tab) 1,000 mg PO BID-W/MEALS [facility] Last Admin: 02/12/24 08:46 Dose: 1,000 mg Morphine Sulfate (Morphine Sulfate 4 Mg/Ml Syringe) 4 mg IVP Q4HR PRN PRN Reason: Pain Last Admin: 02/12/24 14:16 Dose: 4 mg Naloxone HCl (Naloxone 0.4 Mg/Ml 1 Ml Vial) 0.2 mg IV Q2M PRN PRN Reason: Opioid Reversal Nicotine (Nicotine 14mg/24hr Patch) 1 patch TRANSDERM DAILY [facility] Last Admin: 02/12/24 08:51 Dose: Not Given Brivaracetam [ Briviact] 50 Mg Tablet 50 mg PO BID [facility] Last Admin: 02/12/24 08:52 Dose: 50 mg Ondansetron HCl (Ondansetron 4 Mg/2 Ml Vial) 4 mg IVP Q8HR PRN PRN Reason: Nausea And Vomiting Last Admin: 02/10/24 16:38 Dose: 4 mg Oxcarbazepine (Oxcarbazepine 150 Mg Tab) 150 mg PO BID [facility] Last Admin: 02/12/24 08:45 Dose: 150 mg Propranolol HCl (Propranolol 10 Mg Tab) 10 mg PO BID [facility] Last Admin: 02/12/24 08:45 Dose: 10 mg Sertraline HCl (Sertraline 100 Mg Tab) 100 mg PO DAILY [facility] Last Admin: 02/12/24 08:45 Dose: 100 mg Tamsulosin HCl (Tamsulosin 0.4 Mg Cap.Er.24h) 0.4 mg PO HS [facility] Last Admin: 02/11/24 21:57 Dose: 0.4 mg Temazepam (Temazepam 15 Mg Cap) 15 mg PO HS PRN PRN Reason: Insomnia Tizanidine HCl (Tizanidine 4 Mg Tab) 4 mg PO TID PRN PRN Reason: Pain Trazodone HCl (Trazodone Hcl 100 Mg Tab) 150 mg PO HS [facility] Last Admin: 02/11/24 21:57 Dose: 150 mg Social history: Patient lives with his parents. Smokes half a pack a day for last 30 years. CBD oil. Alcohol occasionally Physical examination: VITAL SIGNS: 98.2, 71, 16, 118/73, 95% room air GENERAL: Resting in bed, comfortable EYES: Pupils equal. Conjunctiva chelsi l. HEENT: External appearance of nose and ears normal, oral cavity grossly normal. NECK: JVD not raised; masses not palpable. HEART: First and second heart sounds are normal; no edema. LUNGS: Respiratory rate normal; slightly decreased breath sounds. ABDOMEN: Soft, nontender, liver spleen not palpable, no masses palpable. PSYCH: [Alert and oriented x3; mood and affect. Anxious. MUSCULOSKELETAL:No Clubbing/cyanosis;muscles-grossly intact. Left foot: Dressing INVESTIGATIONS, reviewed in the clinical context: Wound culture: Sent to MRSA, Staphylococcus L Blood culture: Pending February 11, 2024: White count 9.1 hemoglobin 12.5 platelets 195 potassium 4.6 creatinine 0.73 February 09, 2024: White count 8.8 hemoglobin 13.8 platelets 209 potassium 3.8. 5 creatinine 0.75 blood glucose 116 X-ray left foot complete: Soft tissue swelling throughout the foot. Fixation screws in the fourth metacarpal appear intact. Suspected fifth metacarpal base fracture remains present. Assessment plan: -Acute osteomyelitis of left foot fifth metatarsal Bone culture pending -Acute left foot abscess/soft tissue infection, in the foot that underwent surgery on January 04. Initial indication for surgery unclear. Patient 3 weeks ago started having pain and swelling. Did receive clindamycin for 2 weeks, stopped a week ago. Last 5 days symptoms have been worsening.: Acute osteomyelitis of left fifth foot metatarsal bone Bedside De- kyra was done by Dr. Pereyra-pus was obtained. Liter: Incision and drainage with debridement of left foot ulcer. And bone biopsy of left fifth metatarsal done. Cultures 70 MRSA IV vancomycin. ID following. -Chronic nicotine dependence cigarette smoker Patient counseled. Nicotine patch -COPD - current smoker Albuterol as needed. Flovent. -Diabetes mellitus type 1 on insulin Januvia. Glucophage. Follow Accu-Cheks with sliding scale -Hyperlipidemia Lofibra -Hypothyroid Synthroid 50 mcg -Bipolar disorder Continue home medication for the same -Essential hypertension Lisinopril -Epilepsy/grand mal seizures. Last episode several years ago. Briviact. Trileptal -Full code Pending finalization of cultures. Will be discharged home with PICC line antibiotics per ID. Discussed with patient.. Past Medical History Past Medical History: Asthma, Chest Pain / Angina, COPD, CVA/TIA, Diabetes Mellitus, GERD/Reflux, Hyperlipidemia, Hypertension, Seizure Disorder, Skin Disorder Additional Past Medical History / Comment(s): IDDM type II, grand mal seizures- "last seizure yrs ago", coughing from cigarettes, hemorrhoid, constipation/diarrhea, hx psoriasis, eczema, back pain, hydrocele. 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, [facility], sternum partially removed/muscle flap, lumbar puncture 10/03/23 Past Anesthesia/Blood Transfusion Reactions: No Reported Reaction Past Psychological History: Anxiety, Bipolar, Depression, Panic Disorder, Schizophrenia Additional Psychological History / Comment(s): manic depression, paranoia. Smoking Status: Current every day smoker, Light tobacco smoker Past Alcohol Use History: Occasional Additional Past Alcohol Use History / Comment(s): smoking 1/2 PPD, started smoking age 13 Past Drug Use History: None Reported Additional Drug Use History / Comment(s): CBD oil
[2024-02-12 17:18] LABS: Glucose,Whole Blood 134 mg/dL (70-110)
[2024-02-12 20:05] LABS: Glucose,Whole Blood 136 mg/dL (70-110)
[2024-02-12] MEDS: ALPRAZolam 0.25 MG TAB PO PRN (20:26)
[2024-02-12] MEDS: TEMAZEPAM 15 MG CAP PO PRN (20:26)
[2024-02-13 07:01] LABS: Glucose,Whole Blood 113 mg/dL (70-110)
[2024-02-13 07:35] LABS: INR 1.1 (<1.2)
[2024-02-13 07:44] LABS: African American GFR (CKD) >90 (>60 ml/min/1.73 sqM); Non-African American GFR(CKD) >90 (>60 ml/min/1.73 sqM)
--- NOTE | 2024-02-13 09:07 | P.PN ---
Progress Note - Text Progress Note Date: 02/13/24 Status post incision and drainage with bone biopsy foot on 02/10/2024 HPI: Patient seen resting comfortably in bed this morning with nursing bedside. He states his pain is 0 out of 10 to the left foot. Dressing is dry clean and intact to the left lower extremity today. He denies any nausea, vomiting, fever, chills, shortness of breath, calf pain, chest pain. Lower extremity exam: Dressing left intact today. A&O x 3, NAD Vascular: Nonpalpable DP and PT pulse to the left foot. CFT less than 3 seconds to all digits. Derm: Distal left foot ulceration has epithelialized. Proximal left foot ulceration measures 1.0 x 0.8 x 1.0. This does probe to bone. Healthy epithelialized borders and granular wound base are appreciated. All erythema has resolved. EM edema has greatly resolved and skin tension lines are now up visualized. Significant improvement in 2 days. Neuro: Light touch sensation is decreased to the level of the midfoot. MSK: Gross range of motion intact to exposed digits. No pain with compression of the calves. Calves are soft and supple. Assessment: 1. Ulceration left foot 2. Cellulitis left foot -resolving 3. Osteomyelitis fifth metatarsal left foot 4. Diabetes mellitus with peripheral neuropathy Plan: -Discussed patient's clinical and radiographic findings in detail. -Wound care order placed today: Dressing consisting of Betadine, gauze, Eliane, Dwight bandage. Patient will require every other day dressing changes upon discharge. - Cultures are still pending. Preliminary cultures showing anticipated MRSA growth. Bone biopsy pending. Pathology shows no acute signs of osteomyelitis in the bone. - Plan is for patient to receive PICC line today. - Patient is cleared to discharge from podiatric standpoint pending infectious disease recommendation. - Patient will follow-up with me in [facility] in 1 week. Latha Pereyra DPM, [facility]
[2024-02-13 12:11] LABS: Glucose,Whole Blood 98 mg/dL (70-110)
--- NOTE | 2024-02-13 12:57 | XR ---
EXAMINATION TYPE: XR chest 1V confirm line [facility] DATE OF EXAM: 02/13/2024 COMPARISON: 06/16/2023 HISTORY: 43-year-old male PICC line placement TECHNIQUE: Single frontal view of the chest is obtained. FINDINGS: Heart upper limits of normal in size. Aorta and pulmonary vasculature within normal limits . Right PICC tip at the cavoatrial junction. Patchy interstitial densities mid and lower lungs. No pl eural effusion. IMPRESSION: 1. Right PICC tip at the cavoatrial junction. 2. Patchy interstitial densities in the mid and lower lungs. Consider bronchitis, interstitial pneumo nitis, or atypical pneumonias.
[2024-02-13 14:13] VITALS: BP 135/87; PULSE 64; RESP 20; TEMP 98.2
--- NOTE | 2024-02-13 16:17 | P.PN ---
Subjective Progress Note Date: 02/13/24 Principal diagnosis: Reason for follow-up is left diabetic foot infection Patient is a 43-year-old male with a past medical history significant for diabetes mellitus hypertension hyperlipidemia seizure disorder CVA TIA COPD patient presenting to the hospital for evaluation of increasing swelling redness and pain to the left foot area apparently the patient recently did have surgery done by his capacity manager and failing outpatient oral Keflex therapy. Patient is status post I&D and debridement of the left foot ulcer and wound biopsy of the left fifth metatarsal completed on 02/10/2024. On today's evaluation that is 02/13/2024, the patient continues to be afebrile, the patient is on room air and breathing comfortably, the Pt denies having any chest pain or cough, the patient denies having any abdominal pain no vomiting or any diarrhea denies pain to the left lower extremity. Patient creatinine 0.67 blood cultures negative culture positive for MRSA, Staphylococcus lugdunenisis and fingoldia magnum Objective - Vital Signs Vital signs: Vital Signs Temp 98.5 F 02/13/24 07:03 Pulse 76 02/13/24 07:03 Resp 18 02/13/24 07:03 BP 119/68 02/13/24 07:03 Pulse Ox 95 02/13/24 07:03 FiO2 Intake & Output 02/12/24 02/13/24 02/13/24 18:59 06:59 18:59 Intake Total 1240 Balance 1240 Intake: Intake, IV Titration 1000 Amount Sodium Chloride 0.9% 1, 500 000 ml @ 75 mls/hr IV . [id number] MARYELLEN Rx#:[id number] Vancomycin 1,500 mg In 500 Sodium Chloride 0.9% 500 ml 500 ml @ 167 mls/hr IVPB Q8H MARYELLEN Rx#: [id number] Oral 240 Other: Voiding Method Toilet Toilet # Voids 3 2 2 - Exam GENERAL DESCRIPTION: Middle-age male lying in bed in no distress RESPIRATORY SYSTEM: Unlabored breathing , decreased breath sounds at bases HEART: S1 S2 regular rate and rhythm , ABDOMEN: Soft , no tenderness EXTREMITIES: Left foot lateral border swelling redness has improved no drainage - Labs CBC & Chem 7: 02/11/24 11:12 02/13/24 06:41 Labs: Abnormal Lab Results - Last 24 Hours (Table) 02/12/24 02/12/24 02/12/24 Range/Units 12:31 17:17 20:04 POC Glucose (mg/dL) 67 L 134 H 136 H (70-110) mg/dL 02/13/24 Range/Units 07:00 POC Glucose (mg/dL) 113 H (70-110) mg/dL Microbiology - Last 24 Hours (Table) 02/10/24 17:56 Gram Stain - Final Foot - Left Wound Culture - Final Staphylococcus lugdunenisis 02/10/24 17:56 Gram Stain - Final Foot - Left Wound Culture - Final Methicillin resist S. aureus 02/09/24 17:02 Blood Culture - Preliminary Blood Assessment and Plan (1) Cellulitis of left foot Status: Acute Code(s): L03.116 - CELLULITIS OF LEFT LOWER LIMB SNOMED Code(s): 26648486296836369 (2) Foot osteomyelitis, left Status: Acute Code(s): M86.9 - OSTEOMYELITIS, UNSPECIFIED SNOMED Code(s): 4898983895966022 Plan: 1patient presented to hospital with left foot cellulitis in this patient who did have a recent outpatient surgery by his capacity manager patient describing it to be shaving of the bones patient did have a callus on the lateral aspect of the left foot but not purulent drainage was noticed as significant swelling and redness as well as tenderness to left foot area failing outpatient oral Keflex will need to cover for resistant gram-positive such as MRSA. 2patient is s/p I&D and bone biopsy of the left fifth metatarsal with cultures currently growing presumptive MRSA in addition to Staphylococcus lugdunenisis and fingoldia magnum 3-currently waiting for PICC line placement plan is for 6-week course of vancomycin pharmacy to dose and oral Flagyl prescription sent to the pharmacy prescription for vancomycin given to the showcase maker and case was discussed with admitting physician Dictation was produced using [employer] dictation software. please excuse any grammatical, word or spelling errors. Time with Patient: Less than 30
--- NOTE | 2024-02-13 17:27 | P.DS ---
Providers Date of admission: 02/08/24 23:46 Expected date of discharge: 02/13/24 Attending physician: Farooq Pantoja Consults: 02/08/24 23:44 Consult Physician Urgent Consulting Provider: Carlos Rivera Consult Reason/Comments: Left foot osteomyelitis, cellulitis, abscess Do you want consulting provider notified?: Yes 02/09/24 17:41 Consult Physician Urgent Consulting Provider: Latha Pereyra Consult Reason/Comments: Left foot osteo Do you want consulting provider notified?: Already Contacted Primary care physician: Prasad Veliz [facility] Course: Chief Complaint: Left foot pain infection This is a pleasant 43-year-old patient who follows with Dr. Prasad Matthews. Chronic stable medical condition include COPD, diabetes, GERD, hyperlipidemia, essential hypertension, grand mal seizure several years ago, hemorrhoids, psoriasis, previous TIA with no residual. 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 Bipolar. Patient underwent surgery on the left foot and some bone was taken off. He is unclear as to the reason for the same. This was done by physician out of the area. Surgery was done in January 04. About 3 weeks ago patient developed a wound in that area. He did go down to [facility] where he finished 2 weeks of clindamycin about a week ago. Patient now for the last 5 days having increasing pain swelling tenderness at that area. Finally decided to come in. In the ER was started on vancomycin. Patient is a longstanding smoker denies any obvious fever and chills. No change in bowel pattern. Decreased appetite. February 10, 2024: Patient was seen by Dr. Pereyra, podiatry. She did scalpel the area and obtain some pus. Patient will be taken down to the OR later in the day. Discussed with patient. Remains on vancomycin. February 11, 2024: Patient underwent surgery of the left foot by Dr. Pereyra yesterday. Dressing in place. Some pain. On IV vancomycin. Cultures pending. Discussed with Dr. Pereyra. Patient will probably need the left metatarsal to be removed. Discussed with patient. Agreeable for the same. He does want to follow-up with Dr. Pereyra outpatient. Antibiotics being coordinated by ID. Patient again reminded about non-smoking. Oral intake fair February 11: Left foot in a dressing. Pain controlled. Oral intake fair. Cultures growing presumptive MRSA and Staphylococcuslugdunenis. Blood cultures negative till now. On IV vancomycin. By Dr. Pereyra from podiatry. For outpatient removal of metatarsal. Home antibiotics being arranged per Dr. Coley pending bone culture results February 12: Pain much better controlled. Discussed with ID Dr. Coley. Patient be discharged on IV antibiotics with PICC line. He will follow-up outpatient. Patient also follow-up with Dr. Pereyra outpatient. Discussed again about smoking. Discussed with social media specialist and nurse. Discussion and discharge planning more than 35 minutes Social history: Patient lives with his parents. Smokes half a pack a day for last 30 years. CBD oil. Alcohol occasionally Physical examination: VITAL SIGNS: 98.2, 64, 20, 135/87, 95% room air GENERAL: Resting in bed, comfortable EYES: Pupils equal. Conjunctiva chelsi l. HEENT: External appearance of nose and ears normal, oral cavity grossly normal. NECK: JVD not raised; masses not palpable. HEART: First and second heart sounds are normal; no edema. LUNGS: Respiratory rate normal; slightly decreased breath sounds. ABDOMEN: Soft, nontender, liver spleen not palpable, no masses palpable. PSYCH: [Alert and oriented x3; mood and affect. Anxious. MUSCULOSKELETAL:No Clubbing/cyanosis;muscles-grossly intact. Left foot: Dressing INVESTIGATIONS, reviewed in the clinical context: Wound culture: MRSA, StaphylococcusL,Finegoldia M Blood culture: Pending February 11, 2024: White count 9.1 hemoglobin 12.5 platelets 195 potassium 4.6 creatinine 0.73 February 09, 2024: White count 8.8 hemoglobin 13.8 platelets 209 potassium 3.8. 5 creatinine 0.75 blood glucose 116 X-ray left foot complete: Soft tissue swelling throughout the foot. Fixation screws in the fourth metacarpal appear intact. Suspected fifth metacarpal base fracture remains present. Assessment plan: -Acute osteomyelitis of left foot fifth metatarsal Bone culture pending -Acute left foot abscess/soft tissue infection, in the foot that underwent surgery on January 04. Initial indication for surgery unclear. Patient 3 weeks ago started having pain and swelling. Did receive clindamycin for 2 weeks, stopped a week ago. Last 5 days symptoms have been worsening.: Acute osteomyelitis of left fifth foot metatarsal bone Bedside De- kyra was done by Dr. Pereyra-pus was obtained. Liter: Incision and drainage with debridement of left foot ulcer. And bone biopsy of left fifth metatarsal done. Cultures-showing multiple organisms including MRSA IV vancomycin. Dressing changes every other day per Dr. Pereyra and follow-up outpatient at [facility] Follow-up with ID outpatient -Chronic nicotine dependence cigarette smoker Patient counseled. Nicotine patch -COPD - current smoker Albuterol as needed. Flovent. -Diabetes mellitus type 1 on insulin Januvia. Glucophage. Follow Accu-Cheks with sliding scale -Hyperlipidemia Lofibra -Hypothyroid Synthroid 50 mcg -Bipolar disorder Continue home medication for the same -Essential hypertension Lisinopril -Epilepsy/grand mal seizures. Last episode several years ago. Briviact. Trileptal -Full code Disposition: Home Past Medical History Past Medical History: Asthma, Chest Pain / Angina, COPD, CVA/TIA, Diabetes Mellitus, GERD/Reflux, Hyperlipidemia, Hypertension, Seizure Disorder, Skin Disorder Additional Past Medical History / Comment(s): IDDM type II, grand mal seizures- "last seizure yrs ago", coughing from cigarettes, hemorrhoid, constipation/diarrhea, hx psoriasis, eczema, back pain, hydrocele. 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, [facility], sternum partially removed/muscle flap, lumbar puncture 10/03/23 Past Anesthesia/Blood Transfusion Reactions: No Reported Reaction Past Psychological History: Anxiety, Bipolar, Depression, Panic Disorder, Schizophrenia Additional Psychological History / Comment(s): manic depression, paranoia. Smoking Status: Current every day smoker, Light tobacco smoker Past Alcohol Use History: Occasional Additional Past Alcohol Use History / Comment(s): smoking 1/2 PPD, started smoking age 13 Past Drug Use History: None Reported Additional Drug Use History / Comment(s): CBD oil Plan - Discharge Summary Discharge Rx Participant: Yes New Discharge Prescriptions: New Metoprolol Tartrate [Lopressor] 12.5 mg PO BID 30 Days #60 tablet Sertraline [Zoloft] 100 mg PO DAILY #30 tab metroNIDAZOLE [Flagyl] 500 mg PO TID #90 tab Nicotine 14Mg/24Hr Patch [Habitrol] 1 patch TRANSDERM DAILY #42 patch Atorvastatin [Lipitor] 80 mg PO HS #30 tab Continue Haloperidol Decanoate [Haldol D] 200 mg IM Q21D lisinopriL 20 mg PO DAILY Levothyroxine Sodium [Synthroid] 50 mcg PO DAILY Aspirin [Adult Low Dose Aspirin EC] 81 mg PO DAILY metFORMIN HCL [Glucophage] 1,000 mg PO BID-W/MEALS lamoTRIgine [LaMICtal] 200 mg PO BID Brivaracetam [Briviact] 50 mg PO BID OXcarbazepine [Trileptal] 150 mg PO BID lamoTRIgine [LaMICtal] 75 mg PO BID traZODone HCL 150 mg PO HS Fluticasone Propionate [Flovent Hfa 220 mcg] 2 puff INHALATION RT-BID sitaGLIPtin [Januvia] 100 mg PO DAILY Tamsulosin HCl [Flomax] 0.4 mg PO HS Gabapentin [Neurontin] 400 mg PO TID Fenofibrate [Lofibra] 160 mg PO DAILY Famotidine [Pepcid] 40 mg PO BID Albuterol Sulfate [Albuterol Sulfate Hfa] 2 puff PO RT-Q6H PRN PRN Reason: Shortness Of Breath tiZANidine [Zanaflex] 4 mg PO TID PRN PRN Reason: Pain Insulin NPH Hum/Reg Insulin Hm [humuLIN 70/30 Kwikpen] 33 unit SQ W/BRKFST Insulin NPH Hum/Reg Insulin Hm [humuLIN 70/30 Kwikpen] 18 unit SQ W/SUPPER Ferrous Sulfate [Iron (65 MG Elemental)] 325 mg PO DAILY Discontinued Sertraline HCl 150 mg PO DAILY Propranolol LA [Inderal LA] 60 mg PO HS Atorvastatin [Lipitor] 40 mg PO HS Discharge Medication List Haloperidol Decanoate [Haldol D] 200 mg IM Q21D 07/31/14 [History] Aspirin [Adult Low Dose Aspirin EC] 81 mg PO DAILY 12/07/19 [History] Brivaracetam [Briviact] 50 mg PO BID 12/07/19 [History] Levothyroxine Sodium [Synthroid] 50 mcg PO DAILY 12/07/19 [History] lamoTRIgine [LaMICtal] 200 mg PO BID 12/07/19 [History] lisinopriL 20 mg PO DAILY 12/07/19 [History] metFORMIN HCL [Glucophage] 1,000 mg PO BID-W/MEALS 12/07/19 [History] Albuterol Sulfate [Albuterol Sulfate Hfa] 2 puff PO RT-Q6H PRN 02/07/23 [History] Famotidine [Pepcid] 40 mg PO BID 02/07/23 [History] Fenofibrate [Lofibra] 160 mg PO DAILY 02/07/23 [History] Fluticasone Propionate [Flovent Hfa 220 mcg] 2 puff INHALATION RT-BID 02/07/23 [History] Gabapentin [Neurontin] 400 mg PO TID 02/07/23 [History] Insulin NPH Hum/Reg Insulin Hm [humuLIN 70/30 Kwikpen] 18 unit SQ W/SUPPER 02/07/23 [History] Insulin NPH Hum/Reg Insulin Hm [humuLIN 70/30 Kwikpen] 33 unit SQ W/BRKFST 02/07/23 [History] OXcarbazepine [Trileptal] 150 mg PO BID 02/07/23 [History] Tamsulosin HCl [Flomax] 0.4 mg PO HS 02/07/23 [History] lamoTRIgine [LaMICtal] 75 mg PO BID 02/07/23 [History] sitaGLIPtin [Januvia] 100 mg PO DAILY 02/07/23 [History] tiZANidine [Zanaflex] 4 mg PO TID PRN 02/07/23 [History] traZODone HCL 150 mg PO HS 02/07/23 [History] Ferrous Sulfate [Iron (65 MG Elemental)] 325 mg PO DAILY 02/09/24 [History] Atorvastatin [Lipitor] 80 mg PO HS #30 tab 02/13/24 [Rx] Metoprolol Tartrate [Lopressor] 12.5 mg PO BID 30 Days #60 tablet 02/13/24 [Rx] Nicotine 14Mg/24Hr Patch [Habitrol] 1 patch TRANSDERM DAILY #42 patch 02/13/24 [Rx] Sertraline [Zoloft] 100 mg PO DAILY #30 tab 02/13/24 [Rx] metroNIDAZOLE [Flagyl] 500 mg PO TID #90 tab 02/13/24 [Rx] Follow up Appointment(s)/Referral(s): Prasad Veliz DO [Primary Care Provider] - 02/17/24 9:30 am [facility], [REFERRING] - 1 Week Latha Pereyra DPM [STAFF PHYSICIAN] - 02/18/24 11:00 am (Patient to follow up with me at [facility] [address] [place] [address]) Carlos Rivera MD [STAFF PHYSICIAN] - 2 Weeks (please call to schedule a follow up appointment) [facility], [NON-STAFF] - 1 Week Ambulatory/Diagnostic Orders: Basic Metabolic Panel [LAB.AMB] Location: None Selected C Reactive Protein [LAB.AMB] Location: None Selected Complete Blood Count w/diff [LAB.AMB] Location: None Selected Erythrocyte Sedimentation Rate [LAB.AMB] Location: None Selected Activity/Diet/Wound Care/Special Instructions: Wound care order: Every other day dressing changes consisting of Betadine, gauze, Eliane, Dwight bandage to left lower extremity ulceration. Abx per dr rivera Discharge Disposition: HOME SELF-CARE
[2024-02-14] MEDS ORDERED: VANCOMYCIN TROUGH DUE 1 EACH MISC MISCELLANE ONE (09:00)
--- NOTE | 2024-02-14 23:28 | CDI ---
Documentation Clarification Form Date: 02/14/2024 11:15:59 PM From: Audra Holman Phone: Admit Date: 02/08/2024 11:46:00 PM Patient Name: Geo Mcmahan Visit Number: [id number] Discharge Date: 02/13/2024 03:25:00 PM ATTENTION: The Clinical Documentation Specialists (CDI) and [facility] Coding Staff appreciate your assistance in clarifying documentation. Please respond to the clarification below the line at the bottom and electronically sign. The CDI & [facility] Coding staff will review the response and follow-up if needed. Please note: Queries are made part of the Legal Health Record. If you have any questions, please contact the author of this message via ITS. Dr. Farooq Pantoja Cellulitis of left foot is documented per ED Note and throughout the Progress Notes. Additional clarification regarding the type of cellulitis is requested. History/risk factors: 43yo M, cellulitis,left foot abscess, left foot ulcer, smoker, COPD, IDDM w foot ulcer, HLD, hypothyroid, BPD, HTN, Hx Epilepsy/grand malseizures Clinical Indicators: cultures currently growingpresumptiveMRSAin addition toStaphylococcuslugdunenisis and fingoldia magnum. Benign bone with mild reactive/degenerative changes,negative for acute osteomyelitis. Treatment: Incision and drainagewithdebridementofleft foot ulcer. Bone biopsyleft fifth metatarsal Please clarify the etiology of the cellulitis, if known: [ + ] Cellulitis is a diabetic skin complication [ ] Cellulitis is not a diabetic skin complication [ ] Other, please specify: [ ] Unable to determine (Template Last Revised: September 2022) MTDD
== END 2024-02-13 15:25 | disposition home or self-care (01) | DRG 793 ==
LOC: EC 23:04 → 5NMEDONC 23:46
PROVIDERS: ADMIT Hospitalist; ATTEND Hospitalist
PROC: 0Q9M0ZZ Drainage of Left Tarsal, Open Approach (ICD-10-PCS; principal; 2024-02-10 12:15)
PROC: 0QBM0ZX Excision of Left Tarsal, Open Approach, Diagnostic (ICD-10-PCS; 2024-02-10 12:15)
PROC: 02HV33Z Insertion of Infusion Device into Superior Vena Cava, Percutaneous Approach (ICD-10-PCS; 2024-02-13)
DX: L76.82 Other postprocedural complications of skin and subcutaneous tissue (principal); L97.426 Non-pressure chronic ulcer of left heel and midfoot with bone involvement without evidence of necrosis; E11.621 Type 2 diabetes mellitus with foot ulcer; L03.116 Cellulitis of left lower limb; E11.42 Type 2 diabetes mellitus with diabetic polyneuropathy; E11.628 Type 2 diabetes mellitus with other skin complications; Z79.4 Long term (current) use of insulin; I10 Essential (primary) hypertension; J44.89 Other specified chronic obstructive pulmonary disease; B95.62 Methicillin resistant Staphylococcus aureus infection as the cause of diseases classified elsewhere; B96.89 Other specified bacterial agents as the cause of diseases classified elsewhere; E78.5 Hyperlipidemia, unspecified; F17.210 Nicotine dependence, cigarettes, uncomplicated; S92.323A Displaced fracture of second metatarsal bone, unspecified foot, initial encounter for closed fracture; Z90.79 Acquired absence of other genital organ(s); Z86.73 Personal history of transient ischemic attack (TIA), and cerebral infarction without residual deficits; Z79.82 Long term (current) use of aspirin; Z79.890 Hormone replacement therapy; Z79.84 Long term (current) use of oral hypoglycemic drugs; Z79.51 Long term (current) use of inhaled steroids; Z79.891 Long term (current) use of opiate analgesic; Z79.899 Other long term (current) drug therapy; Z86.69 Personal history of other diseases of the nervous system and sense organs; Z86.14 Personal history of Methicillin resistant Staphylococcus aureus infection; Z88.5 Allergy status to narcotic agent; Z88.6 Allergy status to analgesic agent; Z88.8 Allergy status to other drugs, medicaments and biological substances
CPT/HCPCS: 36573; 80048; 80053; 80202; 82565; 84145; 85025; 85610; 85652; 86140; 87040; 87070; 87075; 87077; 87186; 87205; 88307; 88311; 94640; 96361; 96374; 99285

== ENCOUNTER 2024-02-17 14:00 | Inpatient (IN) | payer OTHER ==
--- NOTE | 2024-02-17 14:17 | ED ---
General Adult HPI - General Chief complaint: Shortness of Breath Stated complaint: SOB Time Seen by Provider: 02/17/24 14:00 Source: patient, EMS, RN notes reviewed, old records reviewed Mode of arrival: EMS Limitations: no limitations - History of Present Illness Initial comments: This is a 43-year-old male who presents to the emergency department from [facility]. Patient was sent to us because of elevated troponin as well as low potassium and pneumonia. Patient went there because he was having difficulty breathing they said he was oxygenating in the mid 70s they gave him some breathing treatments because of his history of asthma and he was wheezing. Patient eventually got a CAT scan that showed pneumonia but no PE lab work came back and showed a potassium of 2.8 and troponin .067 patient was started on vancomycin and cefepime and was sent to us by ambulance. Patient denies any chest pain at any time today. Patient denies any fever but he does state he has been coughing more lately. - Related Data Home Medications Medication Instructions Recorded Confirmed Haloperidol Decanoate [Haldol D] 200 mg IM Q21D 07/31/14 02/17/24 Aspirin [Adult Low Dose Aspirin EC] 81 mg PO DAILY 12/07/19 02/17/24 Brivaracetam [Briviact] 50 mg PO BID 12/07/19 02/17/24 Levothyroxine Sodium [Synthroid] 50 mcg PO DAILY 12/07/19 02/17/24 lamoTRIgine [LaMICtal] 200 mg PO BID 12/07/19 02/17/24 lisinopriL 20 mg PO DAILY 12/07/19 02/17/24 metFORMIN HCL [Glucophage] 1,000 mg PO BID-W/MEALS 12/07/19 02/17/24 Albuterol Sulfate [Albuterol 2 puff PO RT-Q6H PRN 02/07/23 02/17/24 Sulfate Hfa] Famotidine [Pepcid] 40 mg PO BID 02/07/23 02/17/24 Fenofibrate [Lofibra] 160 mg PO DAILY 02/07/23 02/17/24 Fluticasone Propionate [Flovent 2 puff INHALATION RT-BID 02/07/23 02/17/24 Hfa 220 mcg] Gabapentin [Neurontin] 400 mg PO TID 02/07/23 02/17/24 Insulin NPH Hum/Reg Insulin Hm 18 unit SQ W/SUPPER 02/07/23 02/17/24 [humuLIN 70/30 Kwikpen] Insulin NPH Hum/Reg Insulin Hm 33 unit SQ W/BRKFST 02/07/23 02/17/24 [humuLIN 70/30 Kwikpen] OXcarbazepine [Trileptal] 150 mg PO BID 02/07/23 02/17/24 Tamsulosin HCl [Flomax] 0.4 mg PO HS 02/07/23 02/17/24 lamoTRIgine [LaMICtal] 75 mg PO BID 02/07/23 02/17/24 sitaGLIPtin [Januvia] 100 mg PO DAILY 02/07/23 02/17/24 tiZANidine [Zanaflex] 4 mg PO TID PRN 02/07/23 02/17/24 traZODone HCL 150 mg PO HS 02/07/23 02/17/24 Ferrous Sulfate [Iron (65 MG 325 mg PO DAILY 02/09/24 02/17/24 Elemental)] Metoprolol Tartrate [Lopressor] 12.5 mg PO BID 02/17/24 02/17/24 Previous Rx's Medication Instructions Recorded Atorvastatin [Lipitor] 80 mg PO HS #30 tab 02/13/24 Nicotine 14Mg/24Hr Patch [Habitrol] 1 patch TRANSDERM DAILY #42 patch 02/13/24 Sertraline [Zoloft] 100 mg PO DAILY #30 tab 02/13/24 metroNIDAZOLE [Flagyl] 500 mg PO TID #90 tab 02/13/24 Allergies Allergy/AdvReac Type Severity Reaction Status Date / Time hydrocodone Allergy hives, Verified 02/17/24 14:07 nausea and vomiting ketorolac [From Toradol] Allergy Abdominal Verified 02/17/24 14:07 Pain mirtazapine [From Remeron] Allergy Abdominal Verified 02/17/24 14:07 Pain pioglitazone [From Actos] Allergy Abdominal Verified 02/17/24 14:07 Pain acetaminophen AdvReac Nausea & Verified 02/17/24 14:07 [From Tylenol-Codeine #3] Vomiting codeine AdvReac Nausea & Verified 02/17/24 14:07 [From Tylenol-Codeine #3] Vomiting Review of Systems ROS Statement: Those systems with pertinent positive or pertinent negative responses have been documented in the HPI. ROS Other: All systems not noted in ROS Statement are negative. Past Medical History Past Medical History: Asthma, Chest Pain / Angina, COPD, CVA/TIA, Diabetes Yenni itus, GERD/Reflux, Hyperlipidemia, Hypertension, Seizure Disorder, Skin Disorder Additional Past Medical History / Comment(s): IDDM type II, grand mal seizures- "last seizure yrs ago", coughing from cigarettes, hemorrhoid, constipation/diarrhea, hx psoriasis, eczema, back pain, hydrocele. 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, [facility] surgery, sternum partially removed/muscle flap, lumbar puncture 10/03/23 Past Anesthesia/Blood Transfusion Reactions: No Reported Reaction Past Psychological History: Anxiety, Bipolar, Depression, Panic Disorder, Schizophrenia Smoking Status: Current every day smoker, Light tobacco smoker Past Alcohol Use History: Occasional Past Drug Use History: None Reported - Past Family History Sister(s) Family Medical History: Cancer Mother Family Medical History: Cancer Father Family Medical History: Cancer General Exam - General Exam Comments Initial Comments: GENERAL: Patient is well-developed and well-nourished. Patient is nontoxic and well- hydrated and is in mild distress. ENT: Neck is soft and supple. No significant lymphadenopathy is noted. Oropharynx is clear. Moist mucous membranes. Neck has full range of motion without eliciting any pain. EYES: The sclera were anicteric and conjunctiva were pink and moist. Extraocular movements were intact and pupils were equal round and reactive to light. Eyelids were unremarkable. PULMONARY: Unlabored respirations. Good breath sounds bilaterally. No audible rales rhonchi or wheezing was noted. CARDIOVASCULAR: There is a regular rate and rhythm without any murmurs gallops or rubs. ABDOMEN: Soft and nontender with normal bowel sounds. SKIN: Skin is clear with no lesions or rashes and otherwise unremarkable. NEUROLOGIC: Patient is alert and oriented x3. Cranial nerves II through XII are grossly intact. Motor and sensory are also intact. Normal speech, volume and content. Symmetrical smile. MUSCULOSKELETAL: Normal extremities with adequate strength and full range of motion. No lower extremity swelling or edema. No calf tenderness. LYMPHATICS: No significant lymphadenopathy is noted PSYCHIATRIC: Normal psychiatric evaluation. Limitations: no limitations Course Vital Signs 02/17/24 02/17/24 02/17/24 14:04 14:07 15:15 Temperature 98.5 F Pulse Rate 81 77 Respiratory 20 22 35 H Rate Blood Pressure 158/87 O2 Sat by Pulse 94 L 91 L Oximetry 02/17/24 02/17/24 16:00 18:00 Temperature Pulse Rate 80 72 Respiratory 25 H 24 Rate Blood Pressure 145/85 157/79 O2 Sat by Pulse 93 L 94 L Oximetry Medical Decision Making - Medical Decision Making EKG is interpreted by myself but EKG shows a sinus rhythm at 70 bpm parables 122 QRS is 94 QT interval is 426 QTc is 446. Patient's EKG shows no ST segment ovation or depression. Was pt. sent in by a medical professional or institution (, PA, STABILIZING MACHINE OPERATOR, urgent care, hospital, or care home...) When possible be specific @ -Patient was sent to us from [facility] Did you speak to anyone other than the patient for history (EMS, parent, family, police, friend...)? What history was obtained from this source @ -EMS gave quite a bit of the history Did you review nursing and triage notes (agree or disagree)? Why? @ -I reviewed and agree with nursing and triage notes Were old charts reviewed (outside hosp., previous admission, EMS record, old EKG, old radiological studies, urgent care reports/EKG's, care home records)? Report findings @ -I reviewed all the lab work CAT scans and x-rays from [facility] that were sent with the patient Differential Diagnosis (chest pain, altered mental status, abdominal pain women, abdominal pain men, vaginal bleeding, weakness, fever, dyspnea, syncope, headache, dizziness, GI bleed, back pain, seizure, CVA, palpatations, mental health, musculoskeletal)? @ -Differential Dyspnea: Coronary syndrome, arrhythmia, tamponade, asthma, COPD, pulmonary embolism, pneumonia, pneumothorax, pulmonary effusion, anaphylaxis, diabetic ketoacidosis, flailed chest, pulmonary contusion, diaphragmatic rupture, anemia, neuromus cular, this is not meant to be an all-inclusive list. EKG interpreted by me (3pts min.). @ -As above X-rays interpreted by me (1pt min.). @ -None done CT interpreted by me (1pt min.). @ -None done U/S interpreted by me (1pt. min.). @ -None done What testing was considered but not performed or refused? (CT, X-rays, U/S, labs)? Why? @ -None What meds were considered but not given or refused? Why? @ -None Did you discuss the management of the patient with other professionals (professionals i.e. DrJacqueline, PA, STABILIZING MACHINE OPERATOR, lab, RT, psych nurse, long term care social worker, chisel trimmer, teacher, special weapons unit officer, director case)? Give summary @ -[facility] the patient wrote admitting orders Was smoking cessation discussed for >3mins.? @ -No Was critical care preformed (if so, how long)? @ -No Were there social determinants of health that impacted care today? How? (Homelessness, low income, unemployed, alcoholism, drug addiction, transportation, low edu. Level, literacy, decrease access to med. care, skilled nursing, rehab)? @ -No Was there de-escalation of care discussed even if they declined (Discuss DNR or withdrawal of care, Hospice)? DNR status @ -No What co-morbidities impacted this encounter? (DM, HTN, Smoking, COPD, CAD, Cancer, CVA, ARF, Chemo, Hep., AIDS, mental health diagnosis, sleep apnea, morbid obesity)? @ -None Was patient admitted / discharged? Hospital course, mention meds given and route, prescriptions, significant lab abnormalities, going to OR and other pertinent info. @ -Patient was treated with vancomycin and cefepime patient's troponin was mildly elevated and we repeated the troponin here was elevated as well so patient was kept on the heparin drip. [facility]. Undiagnosed new problem with uncertain prognosis? @ -No Drug Therapy requiring intensive monitoring for toxicity (Heparin, Nitro, Insulin, Cardizem)? @ -No Were any procedures done? @ -No Diagnosis/symptom? @ -Non-STEMI Acute, or Chronic, or Acute on Chronic? @ -Acute Uncomplicated (without systemic symptoms) or Complicated (systemic symptoms)? @ -Complicated Side effects of treatment? @ -No Exacerbation, Progression, or Severe Exacerbation? @ -No Poses a threat to life or bodily function? How? (Chest pain, USA, AL, pneumonia, PE, COPD, DKA, ARF, appy, cholecystitis, CVA, Diverticulitis, Homicidal, Suicidal, threat to staff... and all critical care pts) @ -Yes this could lead to an AL and endorgan dysfunction Diagnosis/symptom? @ -Pneumonia Acute, or Chronic, or Acute on Chronic? @ -Acute Uncomplicated (without systemic symptoms) or Complicated (systemic symptoms)? @ -Default Side effects of treatment? @ -None Exacerbation, Progression, or Severe Exacerbation] @ -No Poses a threat to life or bodily function? @ -Yes this could lead to sepsis and endorgan dysfunction - Lab Data Lab Results 02/17/24 02/17/24 02/17/24 Range/Units 14:17 14:17 14:51 Lactic Ac Sepsis Rflx Y Plasma Lactic Acid Zachary 2.3 H* (0.7-2.0) mmol/L Troponin I 0.204 H* (0.000-0.034) ng/mL 02/17/24 Range/Units 17:35 Lactic Ac Sepsis Rflx Plasma Lactic Acid Zachary 1.8 (0.7-2.0) mmol/L Troponin I (0.000-0.034) ng/mL Critical Care Time Critical Care Time: Yes Total Critical Care Time: 35 Disposition Clinical Impression: Pneumonia, NSTEMI (non-ST elevated myocardial infarction), Hypokalemia Disposition: ADMITTED IP TO THIS HOSP Referrals: Prasad Veliz DO [Primary Care Provider] - 1-2 days Time of Disposition: 18:53
[2024-02-17] MEDS: SODIUM CHLORIDE 0.9% 1,000 ML IV ONE (14:19)
[2024-02-17] MEDS: HEPARIN SOD,PORK IN 0.45% NACL 25,000 UNIT in 0.45% NACL 1 250ML.BAG IV SCH (14:37)
[2024-02-17] MEDS ORDERED: PNEUMONIA PROTOCOL UTILIZED 1 EACH MISC PO PRN (18:55)
[2024-02-17] MEDS ORDERED: NITROGLYCERIN SL TABS 0.4 MG TAB SUBLINGUAL PRN (18:56)
[2024-02-17] MEDS: AZITHROMYCIN 500 MG in SODIUM CHLORIDE 0.9% 250 ML IVPB STA (20:27)
[2024-02-17 21:49] LABS: Glucose,Whole Blood 258 mg/dL (70-110)
[2024-02-17] MEDS ORDERED: ACETAMINOPHEN TAB 325 MG TAB PO PRN (21:49)
[2024-02-17] MEDS ORDERED: ALBUTEROL NEBULIZED 2.5 MG/3 ML INHALATION PRN (21:50)
[2024-02-17] MEDS: ATORVASTATIN 80 MG TAB PO SCH (22:53)
[2024-02-17] MEDS: lamoTRIgine 100 MG TAB PO SCH (22:54)
[2024-02-17] MEDS: FAMOTIDINE 20 MG TAB PO SCH (22:54)
[2024-02-17] MEDS: GABAPENTIN 400 MG CAP PO SCH (22:54)
[2024-02-17] MEDS: lamoTRIgine 25 MG TAB PO SCH (22:55)
[2024-02-17] MEDS: OXcarbazepine 150 MG TAB PO SCH (22:55)
[2024-02-17] MEDS: TAMSULOSIN 0.4 MG CAP.ER.24H PO SCH (22:55)
[2024-02-17] MEDS: METOPROLOL TARTRATE 12.5 MG TAB PO SCH (22:55)
[2024-02-17] MEDS: NITROGLYCERIN OINT 1 INCH/GM PACKET TOPICAL SCH (22:56)
[2024-02-17] MEDS: traZODone HCL 50 MG TAB PO SCH (22:56)
[2024-02-17 23:18] LABS: African American GFR (CKD) >90 (>60 ml/min/1.73 sqM); Anion Gap 9 mmol/L; Blood Urea Nitrogen 11 mg/dL (9-20); Calcium 8.7 mg/dL (8.4-10.2); Carbon Dioxide 24 mmol/L (22-30); Chloride 108 mmol/L (98-107); Glucose 232 mg/dL (74-99); Non-African American GFR(CKD) >90 (>60 ml/min/1.73 sqM); Potassium 3.6 mmol/L (3.5-5.1); Sodium 141 mmol/L (137-145)
[2024-02-18 06:10] LABS: Glucose,Whole Blood 207 mg/dL (70-110)
[2024-02-18] MEDS: LEVOTHYROXINE 50 MCG TAB PO SCH (06:19)
[2024-02-18] MEDS: INSULIN ASPART (NovoLOG) 100 UNIT/ML VIAL SQ SCH (06:19)
[2024-02-18 06:55] LABS: African American GFR (CKD) >90 (>60 ml/min/1.73 sqM); Anion Gap 6 mmol/L; Blood Urea Nitrogen 13 mg/dL (9-20); Calcium 8.6 mg/dL (8.4-10.2); Carbon Dioxide 26 mmol/L (22-30); Chloride 109 mmol/L (98-107); Glucose 183 mg/dL (74-99); Non-African American GFR(CKD) >90 (>60 ml/min/1.73 sqM); Potassium 3.4 mmol/L (3.5-5.1); Sodium 141 mmol/L (137-145)
[2024-02-18] MEDS ORDERED: Potassium Replacement Protocol 1 EACH MISC MISCELLANE PRN (07:03)
--- NOTE | 2024-02-18 07:59 | XR ---
EXAMINATION TYPE: XR chest 1V portable DATE OF EXAM: 02/18/2024 Comparison: 02/13/2024 Clinical History: 43-year-old male follow-up pneumonia Findings: Right PICC tip cavoatrial junction. Heart upper limits of normal in size. Compared to 02/13/2024, ther e has been worsening in the mid and lower lung airspace disease. No pleural effusion. Impression: Worsening of the mid and lower lung airspace disease compared to 02/13/2024.
[2024-02-18] MEDS: IPRATROPIUM-ALBUTEROL 3 ML NEB INHALATION PRN (08:49)
[2024-02-18] MEDS ORDERED: NON FORMULARY DRUG (Aspirin [Adult Low Dose Aspirin Ec] 81 MG Tablet.Dr) PO SCH (09:00)
[2024-02-18] MEDS: FLUTICASONE 110 MCG INHALER INHALATION SCH (09:16)
[2024-02-18] MEDS: AZITHROMYCIN 500 MG TAB PO SCH (10:15)
[2024-02-18] MEDS: ASPIRIN 325 MG TAB PO SCH (10:15)
[2024-02-18] MEDS: FENOFIBRATE 160 MG TAB PO SCH (10:15)
[2024-02-18] MEDS: FERROUS SULFATE 325 MG TAB PO SCH (10:15)
[2024-02-18] MEDS: POTASSIUM CHLORIDE ER 20 MEQ TAB.ER PO SCH (10:17)
[2024-02-18] MEDS: NON FORMULARY DRUG (Brivaracetam [Briviact] 50 MG Tablet) PO SCH (10:17)
[2024-02-18] MEDS: SERTRALINE 100 MG TAB PO SCH (10:37)
--- NOTE | 2024-02-18 10:49 | P.CRDCN ---
History of Present Illness Consult date: 02/18/24 Reason for Consult (text): NSTEMI History of present illness: History of present illness: This is a 43-year-old male with past medical history of diabetes mellitus type 2, hypertension, asthma, osteomyelitis of the left foot fifth metatarsal. We have been asked to evaluate the patient for non-ST elevated MA. Patient initially presented to [facility]'s been diagnosed with pneumonia, PE was ruled out. Patient was transferred to [facility]. He currently denies having any chest pain. He states he has had shortness of breath for 3 days along with cough that is nonproductive. No fever or chills. He states he feels a little lightheaded, no syncopal episodes. Positive orthopnea. He is a smoker 1 pack/day and quit smoking 5 days ago. He denies any family medical history of coronary artery disease. EKG sinus mechanism with nonspecific changes and V1, V2, inferior leads, low voltage Chest x-ray: Worsening of the mid and lower lung airspace disease compared to 02/13/2024. Laboratory studies: Sodium 141, potassium 3.4, BUN 13 creatinine 0.52. Troponins 0.093, 0.113, 0.204. Home cardiac medications: Aspirin 81 mg daily, atorvastatin 80 mg at bedtime, fenofibrate 160 mg daily, ferrous sulfate 325 mg daily, lisinopril 20 mg daily, Lopressor 12.5 mg twice daily nicotine patch, Januvia 100 mg daily. Review Of Systems: At the time of my exam: CONSTITUTIONAL: Denies fever or chills. HEENT: Denies blurred vision, vision changes, or eye pain. Denies hemoptysis CARDIOVASCULAR: Denies chest pain. Denies orthopnea. Denies PND. Denies palpitations RESPIRATORY: Denies shortness of breath. GASTROINTESTINAL: Denies abdominal pain. Denies nausea or vomiting. HEMATOLOGIC: Denies bleeding disorders. GENITOURINARY: Denies any blood in urine. SKIN: Denies pruitis. Denies rash. Physical examination: Gen: This is a 43-year-old male with frequent coughing, wheezing VS: reviewed, blood pressure 133/77, heart rate 71, pulse ox 92% on 12 L nasal cannula. HEENT: Head is atraumatic, normocephalic. Pupils equal, round. Sclerae is anicteric. NECK: Supple. No JVD. LUNGS: Expiratory wheeze throughout, no intercostal retractions. HEART: Regular rate and rhythm. No murmur. ABDOMEN: Soft No tenderness. EXTREMITIES: No pedal edema. No calf tenderness. NEUROLOGICAL: Patient is awake, alert and oriented x3. Assessment: Acute hypoxic respiratory failure secondary to asthma exacerbation and possible component of heart failure Non-ST elevated myocardial infarction, rule out type I versus type II Asthma exacerbation Diabetes mellitus type 2, insulin requiring Hypertension Osteomyelitis of the left foot Plan: Resume patient's home cardiac medications Continue patient on heparin drip for 48 hours Change aspirin to 81 mg daily Obtain BNP Obtain 2-D echocardiogram and Doppler study to assess cardiac structure and function Further recommendations to follow based upon clinical course Thank you kindly for this consultation. Nurse practitioner note has been reviewed, I agree with documented findings and plan of care. Patient was seen and examined. Past Medical History Past Medical History: Asthma, Chest Pain / Angina, COPD, CVA/TIA, Diabetes Mellitus, GERD/Reflux, Hyperlipidemia, Hypertension, Seizure Disorder, Skin Disorder Additional Past Medical History / Comment(s): IDDM type II, grand mal seizures, coughing from cigarettes, hemorrhoid, constipation/diarrhea, hx psoriasis, eczema, back pain, hydrocele. 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, [facility] foot surgery, sternum partially removed/muscle flap, lumbar puncture 10/03/23 Past Anesthesia/Blood Transfusion Reactions: No Reported Reaction Past Psychological History: Anxiety, Bipolar, Depression, Panic Disorder, Schizophrenia Additional Psychological History / Comment(s): manic depression, paranoia. Smoking Status: Current every day smoker, Light tobacco smoker Past Alcohol Use History: Occasional Additional Past Alcohol Use History / Comment(s): smoking 1/2 PPD, started smoking age 13 Past Drug Use History: None Reported Additional Drug Use History / Comment(s): CBD oil - Past Family History Sister(s) Family Medical History: Cancer Mother Family Medical History: Cancer Father Family Medical History: Cancer Medications and Allergies Home Medications Medication Instructions Recorded Confirmed Type Haloperidol Decanoate [Haldol D] 200 mg IM Q21D 07/31/14 02/17/24 History Aspirin [Adult Low Dose Aspirin EC] 81 mg PO DAILY 12/07/19 02/17/24 History Brivaracetam [Briviact] 50 mg PO BID 12/07/19 02/17/24 History Levothyroxine Sodium [Synthroid] 50 mcg PO DAILY 12/07/19 02/17/24 History lamoTRIgine [LaMICtal] 200 mg PO BID 12/07/19 02/17/24 History lisinopriL 20 mg PO DAILY 12/07/19 02/17/24 History metFORMIN HCL [Glucophage] 1,000 mg PO BID-W/MEALS 12/07/19 02/17/24 History Albuterol Sulfate [Albuterol 2 puff PO RT-Q6H PRN 02/07/23 02/17/24 History Sulfate Hfa] Famotidine [Pepcid] 40 mg PO BID 02/07/23 02/17/24 History Fenofibrate [Lofibra] 160 mg PO DAILY 02/07/23 02/17/24 History Fluticasone Propionate [Flovent 2 puff INHALATION RT-BID 02/07/23 02/17/24 History Hfa 220 mcg] Gabapentin [Neurontin] 400 mg PO TID 02/07/23 02/17/24 History Insulin NPH Hum/Reg Insulin Hm 18 unit SQ W/SUPPER 02/07/23 02/17/24 History [humuLIN 70/30 Kwikpen] Insulin NPH Hum/Reg Insulin Hm 33 unit SQ W/BRKFST 02/07/23 02/17/24 History [humuLIN 70/30 Kwikpen] OXcarbazepine [Trileptal] 150 mg PO BID 02/07/23 02/17/24 History Tamsulosin HCl [Flomax] 0.4 mg PO HS 02/07/23 02/17/24 History lamoTRIgine [LaMICtal] 75 mg PO BID 02/07/23 02/17/24 History sitaGLIPtin [Januvia] 100 mg PO DAILY 02/07/23 02/17/24 History tiZANidine [Zanaflex] 4 mg PO TID PRN 02/07/23 02/17/24 History traZODone HCL 150 mg PO HS 02/07/23 02/17/24 History Ferrous Sulfate [Iron (65 MG 325 mg PO DAILY 02/09/24 02/17/24 History Elemental)] Atorvastatin [Lipitor] 80 mg PO HS #30 tab 02/13/24 02/17/24 Rx Nicotine 14Mg/24Hr Patch [Habitrol] 1 patch TRANSDERM DAILY #42 patch 02/13/24 02/17/24 Rx Sertraline [Zoloft] 100 mg PO DAILY #30 tab 02/13/24 02/17/24 Rx metroNIDAZOLE [Flagyl] 500 mg PO TID #90 tab 02/13/24 02/17/24 Rx Metoprolol Tartrate [Lopressor] 12.5 mg PO BID 02/17/24 02/17/24 History Allergies Allergy/AdvReac Type Severity Reaction Status Date / Time hydrocodone Allergy hives, Verified 02/17/24 14:07 nausea and vomiting ketorolac [From Toradol] Allergy Abdominal Verified 02/17/24 14:07 Pain mirtazapine [From Remeron] Allergy Abdominal Verified 02/17/24 14:07 Pain pioglitazone [From Actos] Allergy Abdominal Verified 02/17/24 14:07 Pain acetaminophen AdvReac Nausea & Verified 02/17/24 14:07 [From Tylenol-Codeine #3] Vomiting codeine AdvReac Nausea & Verified 02/17/24 14:07 [From Tylenol-Codeine #3] Vomiting Physical Exam Vitals: Vital Signs Temp Pulse Pulse Resp BP BP Pulse Ox 02/18/24 07:25 98.9 F 71 18 133/77 93 L 02/18/24 03:24 22 94 L 02/18/24 03:22 98.2 F 64 20 125/66 92 L 02/18/24 02:00 72 20 02/18/24 00:00 99.0 F 72 20 143/77 96 02/17/24 22:16 20 98 02/17/24 21:51 92 L 02/17/24 21:25 22 91 L 02/17/24 21:15 99.1 F 72 20 143/73 82 L 02/17/24 20:00 98.3 F 69 19 155/78 92 L 02/17/24 18:00 72 24 157/79 94 L 02/17/24 16:00 80 25 H 145/85 93 L 02/17/24 15:15 77 35 H 158/87 91 L 02/17/24 14:07 22 02/17/24 14:04 98.5 F 81 20 94 L FiO2 02/18/24 07:25 02/18/24 03:24 02/18/24 03:22 02/18/24 02:00 02/18/24 00:00 02/17/24 22:16 02/17/24 21:51 100 02/17/24 21:25 02/17/24 21:15 02/17/24 20:00 02/17/24 18:00 02/17/24 16:00 02/17/24 15:15 02/17/24 14:07 02/17/24 14:04 Intake and Output 02/17/24 02/18/24 02/18/24 22:59 06:59 14:59 Intake Total 82.14 Output Total 825 Balance -742.86 Intake: Intake, IV Titration 82.14 Amount Heparin Sod,Pork in 0.45% 82.14 NaCl 25,000 unit In 0.45 % NaCl 1 250ml.bag @ 12 UNITS/KG/HR 9.798 mls/hr IV .Q24H [facility] Rx#: [id number] Output: Urine 825 Other: Voiding Method Urinal Urinal Weight 81.647 kg Results 02/18/24 06:05 Cardiac Enzymes 02/17/24 02/17/24 02/17/24 Range/Units 14:17 19:10 22:00 Troponin I 0.204 H* 0.113 H* 0.093 H* (0.000-0.034) ng/mL Coagulation 02/17/24 02/18/24 Range/Units 21:56 06:05 APTT 29.5 27.7 (22.0-30.0) sec Comprehensive Metabolic Panel 02/17/24 02/18/24 Range/Units 21:56 06:05 Sodium 141 141 (137-145) mmol/L Potassium 3.6 3.4 L (3.5-5.1) mmol/L Chloride 108 H 109 H (98-107) mmol/L Carbon Dioxide 24 26 (22-30) mmol/L BUN 11 13 (9-20) mg/dL Creatinine 0.57 L 0.52 L (0.66-1.25) mg/dL Glucose 232 H 183 H (74-99) mg/dL Calcium 8.7 8.6 (8.4-10.2) mg/dL Current Medications Generic Name Dose Route Start Last Admin Trade Name Freq PRN Reason Stop Dose Admin Albuterol/Ipratropium 3 ml 02/18/24 12:00 Ipratropium-Albuterol 3 Ml Neb INHALATION RT-QID MARYELLEN Albuterol/Ipratropium 3 ml 02/18/24 08:41 02/18/24 08:49 Ipratropium-Albuterol 3 Ml Neb INHALATION 3 ml RT-Q2H PRN Administration Shortness Of Breath Or Wheezing Aspirin 325 mg 02/18/24 09:00 Aspirin 325 Mg Tab PO DAILY [facility] Atorvastatin Calcium 80 mg 02/17/24 22:00 02/17/24 22:53 Atorvastatin 80 Mg Tab PO 80 mg HS MARYELLEN Administration Azithromycin 500 mg 02/18/24 09:00 Azithromycin 500 Mg Tab PO 02/19/24 09:01 DAILY [facility] Protocol Budesonide 1 mg 02/18/24 20:00 Budesonide 1 Mg/2 Ml Nebu INHALATION RT-BID MARYELLEN Famotidine 40 mg 02/17/24 22:00 02/17/24 22:54 Famotidine 20 Mg Tab PO 40 mg BID MARYELLEN Administration Fenofibrate 160 mg 02/18/24 09:00 Fenofibrate 160 Mg Tab PO DAILY [facility] Ferrous Sulfate 325 mg 02/18/24 09:00 Ferrous Sulfate 325 Mg Tab PO DAILY [facility] Formoterol Fumarate 20 mcg 02/18/24 20:00 Formoterol Fumarate 20 Mcg/2 Ml Nebu INHALATION RT-BID MARYELLEN Gabapentin 400 mg 02/17/24 22:00 02/17/24 22:54 Gabapentin 400 Mg Cap PO 400 mg TID MARYELLEN Administration Heparin Sodium/Sodium Chloride 250 mls @ 9.798 mls/hr 02/17/24 14:45 02/17/24 23:00 25,000 unit/ Sodium Chloride IV 15 units/kg/hr .Q24H MARYELLEN 12.247 mls/hr Titration Protocol 12 UNITS/KG/HR Ceftriaxone Sodium 2 gm/ 50 mls @ 100 mls/hr 02/18/24 09:00 Sodium Chloride IVPB 02/21/24 09:29 Q24HR MARYELLEN Protocol Ibuprofen 400 mg 02/17/24 22:08 Ibuprofen 400 Mg Tab PO Q8HR PRN Pain Insulin Aspart 0 unit 02/18/24 07:30 02/18/24 06:19 Insulin Aspart (Novolog) 100 Unit/Ml Vial SQ 2 unit ACHS MARYELLEN Administration Protocol Insulin Aspart 18 unit 02/18/24 17:30 Insuln Asp Prt/Insulin Aspart 100 Unit/Ml 10 Ml Vial SQ W/SUPPER MARYELLEN Insulin Aspart 33 unit 02/18/24 07:30 Insuln Asp Prt/Insulin Aspart 100 Unit/Ml 10 Ml Vial SQ W/BRKFST [facility] Lamotrigine 75 mg 02/17/24 22:00 02/17/24 22:55 Lamotrigine 25 Mg Tab PO 75 mg BID [facility] Administration Lamotrigine 200 mg 02/17/24 22:00 02/17/24 22:54 Lamotrigine 100 Mg Tab PO 200 mg BID [facility] Administration Levothyroxine Sodium 50 mcg 02/18/24 06:30 02/18/24 06:19 Levothyroxine 50 Mcg Tab PO 50 mcg DAILY@0630 [facility] Administration Lisinopril 20 mg 02/18/24 09:00 Lisinopril 20 Mg Tab PO DAILY [facility] Methylprednisolone Sodium Succinate 60 mg 02/18/24 12:00 Methylprednisolone Sod Succi 125 Mg/2 Ml Vial IV Q6HR [facility] Metoprolol Tartrate 12.5 mg 02/17/24 22:00 02/17/24 22:55 Metoprolol Tartrate 12.5 Mg Tab PO 12.5 mg BID [facility] Administration Miscellaneous Information 1 each 02/17/24 18:55 Pneumonia Protocol Utilized 1 Each Misc PO ONCE PRN Per Protocol Miscellaneous Information 1 each 02/18/24 07:03 Potassium Replacement Protocol 1 Each Misc MISCELLANE DAILY PRN Per Protocol Protocol Nitroglycerin 0.4 mg 02/17/24 18:56 Nitroglycerin Sl Tabs 0.4 Mg Tab SUBLINGUAL Q5M PRN Chest Pain Nitroglycerin 1 inch 02/18/24 00:00 02/18/24 06:19 Nitroglycerin Oint 1 Inch/Gm Packet TOPICAL 1 inch Q6HR [facility] Administration Non-Formulary Medication 50 mg 02/18/24 09:00 Brivaracetam [Briviact] PO BID [facility] Oxcarbazepine 150 mg 02/17/24 22:00 02/17/24 22:55 Oxcarbazepine 150 Mg Tab PO 150 mg BID MARYELLEN Administration Potassium Chloride 20 meq 02/18/24 08:00 Potassium Chloride Er 20 Meq Tab.Er PO 02/18/24 09:01 Q1HR [facility] Protocol Sertraline HCl 100 mg 02/18/24 09:00 Sertraline 100 Mg Tab PO DAILY MARYELLEN Tamsulosin HCl 0.4 mg 02/17/24 22:00 02/17/24 22:55 Tamsulosin 0.4 Mg Cap.Er.24h PO 0.4 mg HS MARYELLEN Administration Tizanidine HCl 4 mg 02/17/24 21:50 Tizanidine 4 Mg Tab PO TID PRN Pain Trazodone HCl 150 mg 02/17/24 22:00 02/17/24 22:56 Trazodone Hcl 50 Mg Tab PO 150 mg HS MARYELLEN Administration Intake and Output 02/17/24 02/18/24 02/18/24 22:59 06:59 14:59 Intake Total 82.14 Output Total 825 Balance -742.86 Intake: Intake, IV Titration 82.14 Amount Heparin Sod,Pork in 0.45% 82.14 NaCl 25,000 unit In 0.45 % NaCl 1 250ml.bag @ 12 UNITS/KG/HR 9.798 mls/hr IV .Q24H [facility] Rx#: [id number] Output: Urine 825 Other: Voiding Method Urinal Urinal Weight 81.647 kg 02/18/24 06:05
[2024-02-18] MEDS: lisinopriL 20 MG TAB PO SCH (10:54)
[2024-02-18] MEDS: INSULN ASP PRT/INSULIN ASPART 100 UNIT/ML 10 ML VIAL SQ SCH ×2 (10:54→17:00)
[2024-02-18] MEDS: methylPREDNISolone SOD SUCCI 125 MG/2 ML VIAL IV SCH (11:24)
[2024-02-18] MEDS: IPRATROPIUM-ALBUTEROL 3 ML NEB INHALATION SCH ×2 (11:57→12:54)
[2024-02-18] MEDS ORDERED: DEXTROSE 50% SYRINGE 50 ML IVP PRN ×2 (12:02)
--- NOTE | 2024-02-18 12:07 | P.CONS ---
History of Present Illness - Reason for Consult Consult date: 02/18/24 wound care - History of Present Illness This is a 43-year-old patient being seen in the ER for nonhealing ulceration to the left lateral foot. Patient states that he has history of a bone infection and has had his bone shaved multiple times. He has been following with podiatry. He is scheduled to have additional surgery to the bone within the next few weeks. Patient states that the ulceration has progressively gotten w orse since that time. Patient has a nonhealing ulceration measuring approximately 1.5 x 2 x 0.3 cm with significant amount of slough and nonviable tissue present and minimal granulation. Patient does not know what he has been utilizing his dressings. Patient's past medical history significant for Diabetes, COPD, CVA, current everyday smoker. Review Of Systems: Constitutional: No fever, no chills, no night sweats. No weight change. No weakness, fatigue or lethargy. No daytime sleepiness. Integumentary:reports wounds, no lesions. No rash or pruritus. No unusual bruising. No change in hair or nails. Physical exam: General Appearance: Alert, cooperative, no distress, appears stated age. Skin: See HPI all other Skin color, texture, tugor normal, no rashes or lesions. Neurologic: Alert oriented x3 Assessment: 1. Nonhealing ulceration with necrosis of bone left lateral foot 2. Osteomyelitis Plan: 1. Apply Santyl, saline moist gauze, dry gauze, rolled gauze and secure with paper tape. Change daily. Patient would benefit from advanced wound care however he is following with podiatry and would like to keep with them. Will be happy to see him if he changes his mind. Thank for the consultation any questions please contact the wound care center DNP note has been reviewed and discussed with Dr. Urena and the impression and plan of care has been directed as dictated. Past Medical History Past Medical History: Asthma, Chest Pain / Angina, COPD, CVA/TIA, Diabetes Mellitus, GERD/Reflux, Hyperlipidemia, Hypertension, Seizure Disorder, Skin Disorder Additional Past Medical History / Comment(s): IDDM type II, grand mal seizures, coughing from cigarettes, hemorrhoid, constipation/diarrhea, hx psoriasis, eczema, back pain, hydrocele. 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 Smoking Status: Current every day smoker, Light tobacco smoker Past Alcohol Use History: Occasional Additional Past Alcohol Use History / Comment(s): smoking 1/2 PPD, started smoking age 13 Past Drug Use History: None Reported Additional Drug Use History / Comment(s): CBD oil - Past Family History Sister(s) Family Medical History: Cancer Mother Family Medical History: Cancer Father Family Medical History: Cancer Medications and Allergies Home Medications Medication Instructions Recorded Confirmed Type Haloperidol Decanoate [Haldol D] 200 mg IM Q21D 07/31/14 02/17/24 History Aspirin [Adult Low Dose Aspirin EC] 81 mg PO DAILY 12/07/19 02/17/24 History Brivaracetam [Briviact] 50 mg PO BID 12/07/19 02/17/24 History Levothyroxine Sodium [Synthroid] 50 mcg PO DAILY 12/07/19 02/17/24 History lamoTRIgine [LaMICtal] 200 mg PO BID 12/07/19 02/17/24 History lisinopriL 20 mg PO DAILY 12/07/19 02/17/24 History metFORMIN HCL [Glucophage] 1,000 mg PO BID-W/MEALS 12/07/19 02/17/24 History Albuterol Sulfate [Albuterol 2 puff PO RT-Q6H PRN 02/07/23 02/17/24 History Sulfate Hfa] Famotidine [Pepcid] 40 mg PO BID 02/07/23 02/17/24 History Fenofibrate [Lofibra] 160 mg PO DAILY 02/07/23 02/17/24 History Fluticasone Propionate [Flovent 2 puff INHALATION RT-BID 02/07/23 02/17/24 History Hfa 220 mcg] Gabapentin [Neurontin] 400 mg PO TID 02/07/23 02/17/24 History Insulin NPH Hum/Reg Insulin Hm 18 unit SQ W/SUPPER 02/07/23 02/17/24 History [humuLIN 70/30 Kwikpen] Insulin NPH Hum/Reg Insulin Hm 33 unit SQ W/BRKFST 02/07/23 02/17/24 History [humuLIN 70/30 Kwikpen] OXcarbazepine [Trileptal] 150 mg PO BID 02/07/23 02/17/24 History Tamsulosin HCl [Flomax] 0.4 mg PO HS 02/07/23 02/17/24 History lamoTRIgine [LaMICtal] 75 mg PO BID 02/07/23 02/17/24 History sitaGLIPtin [Januvia] 100 mg PO DAILY 02/07/23 02/17/24 History tiZANidine [Zanaflex] 4 mg PO TID PRN 02/07/23 02/17/24 History traZODone HCL 150 mg PO HS 02/07/23 02/17/24 History Ferrous Sulfate [Iron (65 MG 325 mg PO DAILY 02/09/24 02/17/24 History Elemental)] Atorvastatin [Lipitor] 80 mg PO HS #30 tab 02/13/24 02/17/24 Rx Nicotine 14Mg/24Hr Patch [Habitrol] 1 patch TRANSDERM DAILY #42 patch 02/13/24 02/17/24 Rx Sertraline [Zoloft] 100 mg PO DAILY #30 tab 02/13/24 02/17/24 Rx metroNIDAZOLE [Flagyl] 500 mg PO TID #90 tab 02/13/24 02/17/24 Rx Metoprolol Tartrate [Lopressor] 12.5 mg PO BID 02/17/24 02/17/24 History Allergies Allergy/AdvReac Type Severity Reaction Status Date / Time hydrocodone Allergy hives, Verified 02/17/24 14:07 nausea and vomiting ketorolac [From Toradol] Allergy Abdominal Verified 02/17/24 14:07 Pain mirtazapine [From Remeron] Allergy Abdominal Verified 02/17/24 14:07 Pain pioglitazone [From Actos] Allergy Abdominal Verified 02/17/24 14:07 Pain acetaminophen AdvReac Nausea & Verified 02/17/24 14:07 [From Tylenol-Codeine #3] Vomiting codeine AdvReac Nausea & Verified 02/17/24 14:07 [From Tylenol-Codeine #3] Vomiting Physical Exam Vitals: Vital Signs Temp Pulse Pulse Resp BP BP BP 02/18/24 12:03 70 02/18/24 11:30 73 18 123/74 02/18/24 09:10 68 02/18/24 08:59 66 02/18/24 07:25 98.9 F 71 18 133/77 02/18/24 03:24 22 02/18/24 03:22 98.2 F 64 20 125/66 02/18/24 02:00 72 20 02/18/24 00:00 99.0 F 72 20 143/77 02/17/24 22:16 20 02/17/24 21:51 02/17/24 21:25 22 02/17/24 21:15 99.1 F 72 20 143/73 02/17/24 20:00 98.3 F 69 19 155/78 02/17/24 18:00 72 24 157/79 02/17/24 16:00 80 25 H 145/85 02/17/24 15:15 77 35 H 158/87 02/17/24 14:07 22 02/17/24 14:04 98.5 F 81 20 Pulse Ox FiO2 02/18/24 12:03 02/18/24 11:30 95 02/18/24 09:10 02/18/24 08:59 92 L 02/18/24 07:25 93 L 02/18/24 03:24 94 L 02/18/24 03:22 92 L 02/18/24 02:00 02/18/24 00:00 96 02/17/24 22:16 98 02/17/24 21:51 92 L 100 02/17/24 21:25 91 L 02/17/24 21:15 82 L 02/17/24 20:00 92 L 02/17/24 18:00 94 L 02/17/24 16:00 93 L 02/17/24 15:15 91 L 02/17/24 14:07 02/17/24 14:04 94 L Intake and Output 02/17/24 02/18/24 02/18/24 22:59 06:59 14:59 Intake Total 82.14 139.82 Output Total 825 Balance -742.86 139.82 Intake: Intake, IV Titration 82.14 139.82 Amount Heparin Sod,Pork in 0.45% 82.14 139.82 NaCl 25,000 unit In 0.45 % NaCl 1 250ml.bag @ 12 UNITS/KG/HR 9.798 mls/hr IV .Q24H [facility] Rx#: [id number] Output: Urine 825 Other: Voiding Method Urinal Urinal Weight 81.647 kg Results CBC & Chem 7: 02/18/24 06:05 Labs: Abnormal Lab Results - Last 24 Hours (Table) 02/17/24 02/17/24 02/17/24 Range/Units 14:17 14:17 19:10 Potassium (3.5-5.1) mmol/L Chloride (98-107) mmol/L Creatinine (0.66-1.25) mg/dL Glucose (74-99) mg/dL POC Glucose (mg/dL) (70-110) mg/dL Plasma Lactic Acid Zachary 2.3 H* (0.7-2.0) mmol/L Troponin I 0.204 H* 0.113 H* (0.000-0.034) ng/mL 02/17/24 02/17/24 02/17/24 Range/Units 21:48 21:56 22:00 Potassium (3.5-5.1) mmol/L Chloride 108 H (98-107) mmol/L Creatinine 0.57 L (0.66-1.25) mg/dL Glucose 232 H (74-99) mg/dL POC Glucose (mg/dL) 258 H (70-110) mg/dL Plasma Lactic Acid Zachary (0.7-2.0) mmol/L Troponin I 0.093 H* (0.000-0.034) ng/mL 02/18/24 02/18/24 Range/Units 06:05 06:09 Potassium 3.4 L (3.5-5.1) mmol/L Chloride 109 H (98-107) mmol/L Creatinine 0.52 L (0.66-1.25) mg/dL Glucose 183 H (74-99) mg/dL POC Glucose (mg/dL) 207 H (70-110) mg/dL Plasma Lactic Acid Zachary (0.7-2.0) mmol/L Troponin I (0.000-0.034) ng/mL Assessment and Plan (1) Non-pressure chronic ulcer of other part of left foot with necrosis of bone Current Visit: Yes Status: Acute Code(s): L97.524 - NON-PRS CHRONIC ULCER OTH PRT LEFT FOOT W NECROSIS OF BONE SNOMED Code(s): 41519040009189826 (2) Foot osteomyelitis, left Current Visit: No Status: Acute Code(s): M86.9 - OSTEOMYELITIS, UNSPECIFIED SNOMED Code(s): 3858848180842613
[2024-02-18] MEDS: HEPARIN SODIUM 1,000 UN/ML (10ML VL) IV PRN (12:13)
[2024-02-18 12:26] LABS: Glucose,Whole Blood 130 mg/dL (70-110)
[2024-02-18] MEDS: NICOTINE 14MG/24HR PATCH TRANSDERM SCH (12:42)
[2024-02-18] MEDS: LINAGLIPTIN 5 MG TABLET PO SCH (12:42)
--- NOTE | 2024-02-18 14:27 | P.CNPUL ---
History of Present Illness Consult date: 02/18/24 Requesting physician: Farooq Pantoja Reason for consult: dyspnea, COPD, abnormal CXR/CT Chief complaint: Shortness of breath, cough, congestion History of present illness: This is a 43-year-old male patient who has a history of diabetes mellitus, hypertension, hyperlipidemia, seizures, anxiety/depression, schizophrenia, panic disorder, chronic obstructive pulmonary disease with chronic and ongoing tobacco dependence. He was just discharged from here on 02/13/2024 for having ongoing issues with left foot pain and infection. He was found to have acute osteomyelitis of the left foot fifth metatarsal this is been an ongoing issue. He received 2 weeks of clindamycin in the outpatient setting. He recently presented to [facility] with increasing shortness of breath, cough and congestion. His O2 saturations were in the 70s. CT scan of the chest had revealed evidence of pneumonia and borderline troponin levels and he was sent to our emergency room for further evaluation and treatment. Chest x-ray reveals mid and lower lobe airspace disease which is worse compared to previous here 02/13/2024. Sodium 141. Potassium 3.4. Bicarb 26. BUN 13. Creatinine 0.52. Glucose 183. Troponin 0.093. proBNP 1500. He is seen today in consultation in the emergency department. He is currently sitting up on a stretcher. Awake and alert in no acute distress. He is quite hypoxemic requiring 15 L of high flow nasal cannula to maintain O2 saturations to high 80s low 90s. He has been initiated on a heparin drip. He is receiving bronchodilators. He was started on ceftriaxone and azithromycin. Review of Systems REVIEW OF SYSTEMS: CONSTITUTIONAL: Denies any recent significant weight loss or weight gain. EYES: Denies change in vision. EARS, NOSE, MOUTH, THROAT: Denies headaches, denies sore throat. CARDIOVASCULAR: Denies chest pain, palpitations or syncopal episodes. RESPIRATORY: Positive for shortness of breath, cough, congestion no hemoptysis. GASTROINTESTINAL: Denies change in appetite, denies abdominal pain GENITOURINARY: Denies hematuria, denies infections. MUSKULOSKELETAL: Positive for left foot pain, healing wound. INTEGUMENTARY: Denies rash, denies eczema. NEUROLOGICAL: Denies recent memory loss, no recent seizure activity. PSYCHIATRIC: Denies anxiety, denies depression. HEMATOLOGIC/LYMPHATIC: Denies anemia, denies enlarged lymph nodes. Past Medical History Past Medical History: Asthma, Chest Pain / Angina, COPD, CVA/TIA, Diabetes Mellitus, GERD/Reflux, Hyperlipidemia, Hypertension, Seizure Disorder, Skin Disorder Additional Past Medical History / Comment(s): IDDM type II, grand mal seizures, coughing from cigarettes, hemorrhoid, constipation/diarrhea, hx psoriasis, eczema, back pain, hydrocele. 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, [facility] foot surgery, sternum partially removed/muscle flap, lumbar puncture 10/03/23 Past Anesthesia/Blood Transfusion Reactions: No Reported Reaction Past Psychological History: Anxiety, Bipolar, Depression, Panic Disorder, Schizophrenia Additional Psychological History / Comment(s): manic depression, paranoia. Smoking Status: Current every day smoker, Light tobacco smoker Past Alcohol Use History: Occasional Additional Past Alcohol Use History / Comment(s): smoking 1/2 PPD, started smoking age 13 Past Drug Use History: None Reported Additional Drug Use History / Comment(s): CBD oil - Past Family History Sister(s) Family Medical History: Cancer Mother Family Medical History: Cancer Father Family Medical History: Cancer Medications and Allergies Home Medications Medication Instructions Recorded Confirmed Type Haloperidol Decanoate [Haldol D] 200 mg IM Q21D 07/31/14 02/17/24 History Aspirin [Adult Low Dose Aspirin EC] 81 mg PO DAILY 12/07/19 02/17/24 History Brivaracetam [Briviact] 50 mg PO BID 12/07/19 02/17/24 History Levothyroxine Sodium [Synthroid] 50 mcg PO DAILY 12/07/19 02/17/24 History lamoTRIgine [LaMICtal] 200 mg PO BID 12/07/19 02/17/24 History lisinopriL 20 mg PO DAILY 12/07/19 02/17/24 History metFORMIN HCL [Glucophage] 1,000 mg PO BID-W/MEALS 12/07/19 02/17/24 History Albuterol Sulfate [Albuterol 2 puff PO RT-Q6H PRN 05/26/23 06/04/24 History Sulfate Hfa] Famotidine [Pepcid] 40 mg PO BID 02/07/23 02/17/24 History Fenofibrate [Lofibra] 160 mg PO DAILY 02/07/23 02/17/24 History Fluticasone Propionate [Flovent 2 puff INHALATION RT-BID 02/07/23 02/17/24 Histo ry Hfa 220 mcg] Gabapentin [Neurontin] 400 mg PO TID 02/07/23 02/17/24 History Insulin NPH Hum/Reg Insulin Hm 18 unit SQ W/SUPPER 02/07/23 02/17/24 History [humuLIN 70/30 Kwikpen] Insulin NPH Hum/Reg Insulin Hm 33 unit SQ W/BRKFST 02/07/23 02/17/24 History [humuLIN 70/30 Kwikpen] OXcarbazepine [Trileptal] 150 mg PO BID 02/07/23 02/17/24 History Tamsulosin HCl [Flomax] 0.4 mg PO HS 02/07/23 02/17/24 History lamoTRIgine [LaMICtal] 75 mg PO BID 02/07/23 02/17/24 History sitaGLIPtin [Januvia] 100 mg PO DAILY 02/07/23 02/17/24 History tiZANidine [Zanaflex] 4 mg PO TID PRN 02/07/23 02/17/24 History traZODone HCL 150 mg PO HS 02/07/23 02/17/24 History Ferrous Sulfate [Iron (65 MG 325 mg PO DAILY 02/09/24 02/17/24 History Elemental)] Atorvastatin [Lipitor] 80 mg PO HS #30 tab 02/13/24 02/17/24 Rx Nicotine 14Mg/24Hr Patch [Habitrol] 1 patch TRANSDERM DAILY #42 patch 02/13/24 02/17/24 Rx Sertraline [Zoloft] 100 mg PO DAILY #30 tab 02/13/24 02/17/24 Rx metroNIDAZOLE [Flagyl] 500 mg PO TID #90 tab 02/13/24 02/17/24 Rx Metoprolol Tartrate [Lopressor] 12.5 mg PO BID 02/17/24 02/17/24 History Allergies Allergy/AdvReac Type Severity Reaction Status Date / Time hydrocodone Allergy hives, Verified 02/17/24 14:07 nausea and vomiting ketorolac [From Toradol] Allergy Abdominal Verified 02/17/24 14:07 Pain mirtazapine [From Remeron] Allergy Abdominal Verified 02/17/24 14:07 Pain pioglitazone [From Actos] Allergy Abdominal Verified 02/17/24 14:07 Pain acetaminophen AdvReac Nausea & Verified 02/17/24 14:07 [From Tylenol-Codeine #3] Vomiting codeine AdvReac Nausea & Verified 02/17/24 14:07 [From Tylenol-Codeine #3] Vomiting Physical Exam Vitals: Vital Signs Temp Pulse Pulse Resp BP BP BP 02/18/24 12:13 74 02/18/24 12:03 70 02/18/24 11:30 73 18 123/74 02/18/24 09:10 68 02/18/24 08:59 66 02/18/24 07:25 98.9 F 71 18 133/77 02/18/24 03:24 22 02/18/24 03:22 98.2 F 64 20 125/66 02/18/24 02:00 72 20 02/18/24 00:00 99.0 F 72 20 143/77 02/17/24 22:16 20 02/17/24 21:51 02/17/24 21:25 22 02/17/24 21:15 99.1 F 72 20 143/73 02/17/24 20:00 98.3 F 69 19 155/78 02/17/24 18:00 72 24 157/79 02/17/24 16:00 80 25 H 145/85 02/17/24 15:15 77 35 H 158/87 Pulse Ox FiO2 02/18/24 12:13 94 L 02/18/24 12:03 02/18/24 11:30 95 02/18/24 09:10 02/18/24 08:59 92 L 02/18/24 07:25 93 L 02/18/24 03:24 94 L 02/18/24 03:22 92 L 02/18/24 02:00 02/18/24 00:00 96 02/17/24 22:16 98 02/17/24 21:51 92 L 100 02/17/24 21:25 91 L 02/17/24 21:15 82 L 02/17/24 20:00 92 L 02/17/24 18:00 94 L 02/17/24 16:00 93 L 02/17/24 15:15 91 L Intake and Output 02/17/24 02/18/24 02/18/24 22:59 06:59 14:59 Intake Total 82.14 167.253 Output Total 825 1 Balance -742.86 166.253 Intake: Intake, IV Titration 82.14 167.253 Amount Heparin Sod,Pork in 0.45% 82.14 167.253 NaCl 25,000 unit In 0.45 % NaCl 1 250ml.bag @ 12 UNITS/KG/HR 9.798 mls/hr IV .Q24H [facility] Rx#: [id number] Output: Urine 825 Stool 1 Other: Voiding Method Urinal Urinal # Voids 1 Weight 81.647 kg GENERAL EXAM: Alert, disheveled 43-year-old male patient on 15 L high flow nasal cannula, fairly comfortable in no apparent distress. HEAD: Normocephalic. EYES: Normal reaction of pupils, equal size. NOSE: Clear with pink turbinates. THROAT: No erythema or exudates. NECK: No masses, no JVD. CHEST: No chest wall deformity. LUNGS: Equal air entry with bilateral scattered rhonchi. CVS: S1 and S2 normal with no audible murmur, regular rhythm. ABDOMEN: No hepatosplenomegaly, normal bowel sounds, no guarding or rigidity. SPINE: No scoliosis or deformity SKIN: No rashes, healing wound of the left lateral foot and fifth toe. CENTRAL NERVOUS SYSTEM: No focal deficits, tone is normal in all 4 extremities. EXTREMITIES: There is no peripheral edema. No clubbing, no cyanosis. Peripheral pulses are intact. Results - Laboratory Findings CBC and BMP: 02/18/24 06:05 Abnormal lab findings: Abnormal Labs 02/17/24 02/17/24 02/17/24 14:17 14:17 19:10 Potassium Chloride Creatinine Glucose POC Glucose (mg/dL) Plasma Lactic Acid Zachary 2.3 H* Troponin I 0.204 H* 0.113 H* 02/17/24 02/17/24 02/17/24 21:48 21:56 22:00 Potassium Chloride 108 H Creatinine 0.57 L Glucose 232 H POC Glucose (mg/dL) 258 H Plasma Lactic Acid Zachary Troponin I 0.093 H* 02/18/24 02/18/24 02/18/24 06:05 06:09 12:25 Potassium 3.4 L Chloride 109 H Creatinine 0.52 L Glucose 183 H POC Glucose (mg/dL) 207 H 130 H Plasma Lactic Acid Zachary Troponin I - Diagnostic Findings Chest x-ray: image reviewed Assessment and Plan Assessment: Acute hypoxemic respiratory failure secondary to an acute community-acquired versus healthcare acquired pneumonia Acute exacerbation of chronic obstructive pulmonary disease secondary to above Recent admission for osteomyelitis of the left foot and fifth metatarsal Chronic and ongoing tobacco dependence Plan diabetes mellitus Hypertension Per lipidemia History of seizure disorder History of anxiety/depression History of bipolar disorder, schizophrenia Plan: The patient was seen and evaluated Chest x-ray, labs and medications reviewed Initiate DuoNeb inhalations, Pulmicort and Perforomist inhalations Initiate Solu-Medrol 60 mg every 6 hours Titrate the FiO2 as tolerated Continue ceftriaxone and azithromycin Check a procalcitonin Consult his alpine patroller for further wound care Educated regarding the importance of complete smoking cessation NicoDerm patches applied We will continue to follow and make further recommendations based on his clinical status I have personally seen and examined the patient, performed the documentation and the assessment and plan as written. Number of minutes spent on the visit: 20.
--- NOTE | 2024-02-18 16:03 | P.HPIM ---
History of Present Illness H&P Date: 02/18/24 Chief Complaint: Short of breath This is a pleasant 43-year-old patient who follows with Dr. Prasad Matthews. Chronic stable medical condition include COPD, diabetes, GERD, hyperlipidemia, essential hypertension, grand mal seizure several years ago, hemorrhoids, psor iasis, previous TIA with no residual. 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 Bipolar. Patient was just in the hospital from February 08 through February 12: Had undergone t surgery on the left foot and some bone was taken off. unclear as to the reason for the same. This was done by physician out of the area. Surgery was done in January 04. About 3 weeks ago patient developed a wound in that area. He did go down to [facility] where he finished 2 weeks of clindamycin about a week ago. Patient now for the last 5 days having increasing pain swelling tenderness at that area. Finally decided to come in. In the ER was started on vancomycin. Patient is a longstanding smoker denies any obvious fever and chills. No change in bowel pattern. Decreased appetite. February 09 pat ient underwent surgery of the left foot by Dr. Pereyra. Pus was obtained. It was felt that patient's left metatarsal need to be removed. Down the road he was discharged on IV antibiotic and PICC line Patient presented to [facility] he was sent here because of slightly elevated troponin. Having trouble breathing. Pulse ox in the 70s. He did smoke the day after he left and stopped. CT scan done that showed some pneumonia but no PE. Troponin was 0.067. Patient's had a cough. Very little sputum. Specks of blood. No fever no chills. Decreased appetite. Review of systems: GEN.: Decreased appetite EYES: None HEENT: None NECK: None RESPIRATORY: As above CARDIOVASCULAR: None GASTROINTESTINAL: None GENITOURINARY: None MUSCULOSKELETAL: As above LYMPHATICS: None HEMATOLOGICAL: None PSYCHIATRY: Anxious NEUROLOGICAL: None Social history: Patient lives with his parents. Smokes half a pack a day for last 30 years. CBD oil. Alcohol occasionally Physical examination: VITAL SIGNS: 98.9, 71, 18, 133 x 77, 93% on 2 L GENERAL: Lying in bed, short of breath EYES: Pupils equal. Conjunctiva chelsi l. HEENT: External appearance of nose and ears normal, oral cavity grossly normal. NECK: JVD not raised; masses not palpable. HEART: First and second heart sounds are normal; no edema. LUNGS: Respiratory rate increased l; decreased breath sounds wheezing ABDOMEN: Soft, nontender, liver spleen not palpable, no masses palpable. PSYCH: [Alert and oriented x3; mood and affect. Anxious. MUSCULOSKELETAL:No Clubbing/cyanosis;muscles-grossly intact. Left foot: Wound NEUROLOGICAL: Cranial nerves grossly intact; no facial asymmetry, power and sensation grossly intact. LYMPHATICS: No lymph nodes palpable in the axilla and neck INVESTIGATIONS, reviewed in the clinical context: February 18, 2024: Sodium 141 potassium 3.4 BUN 13 creatinine 0.52 blood glucose 183 Troponin I 0.093 proBNP 1500 Wound culture: MRSA, StaphylococcusL,Finegoldia M Blood culture: Pending February 11, 2024: White count 9.1 hemoglobin 12.5 platelets 195 potassium 4.6 creatinine 0.73 February 09, 2024: White count 8.8 hemoglobin 13.8 platelets 209 potassium 3.8. 5 creatinine 0.75 blood glucose 116 X-ray left foot complete: Soft tissue swelling throughout the foot. Fixation screws in the fourth metacarpal appear intact. Suspected fifth metacarpal base fracture remains present. Assessment plan: -Acute osteomyelitis of left foot fifth metatarsal Wound culture:MRSA, StaphylococcusL,Yvetteldia M on February 09 -Acute left foot abscess/soft tissue infection, in the foot that underwent surgery on January 04. Initial indication for surgery unclear. Patient 3 weeks ago started having pain and swelling. Did receive clindamycin for 2 weeks, stopped a week ago. Last 5 days symptoms have been worsening.: Acute osteomyelitis of left fifth foot metatarsal bone February 09: Bedside De- kyra was done by Dr. Pereyra-pus was obtained. Liter: Incision and drainage with debridement of left foot ulcer. And bone biopsy of left fifth metatarsal done. Cultures-showing multiple organisms including MRSA -Possible acute non-Q wave WA. IV heparin. Aspirin Cardiology consulted -IV heparin monitoring Follow PTT -Chronic nicotine dependence cigarette smoker Nicotine patch -Acute COPD exacerbation in a current smoker DuoNeb every 4. IV Solu-Medrol -Diabetes mellitus type 1 on insulin Januvia. Glucophage. Insulin -Hyperlipidemia Lofibra -Hypothyroid Synthroid 50 mcg -Bipolar disorder Continue home medication for the same -Essential hypertension Lisinopril -Epilepsy/grand mal seizures. Last episode several years ago. Briviact. Trileptal -Full code Consult pulmonary. Cardiology. Dr. Pereyra Past Medical History Past Medical History: Asthma, Chest Pain / Angina, COPD, CVA/TIA, Diabetes Mellitus, GERD/Reflux, Hyperlipidemia, Hypertension, Seizure Disorder, Skin Disorder Additional Past Medical History / Comment(s): IDDM type II, grand mal seizures, coughing from cigarettes, hemorrhoid, constipation/diarrhea, hx psoriasis, eczema, back pain, hydrocele. 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, [facility] foot surgery, sternum partially removed/muscle flap, lumbar puncture 10/03/23 Past Anesthesia/Blood Transfusion Reactions: No Reported Reaction Past Psychological History: Anxiety, Bipolar, Depression, Panic Disorder, Camilo izophrenia Additional Psychological History / Comment(s): manic depression, paranoia. Smoking Status: Current every day smoker, Light tobacco smoker Past Alcohol Use History: Occasional Additional Past Alcohol Use History / Comment(s): smoking 1/2 PPD, started smoking age 13 Past Drug Use History: None Reported Additional Drug Use History / Comment(s): CBD oil - Past Family History Sister(s) Family Medical History: Cancer Mother Family Medical History: Cancer Father Family Medical History: Cancer Medications and Allergies Home Medications Medication Instructions Recorded Confirmed Type Haloperidol Decanoate [Haldol D] 200 mg IM Q21D 07/31/14 02/17/24 History Aspirin [Adult Low Dose Aspirin EC] 81 mg PO DAILY 12/07/19 02/17/24 History Brivaracetam [Briviact] 50 mg PO BID 12/07/19 02/17/24 History Levothyroxine Sodium [Synthroid] 50 mcg PO DAILY 12/07/19 02/17/24 History lamoTRIgine [LaMICtal] 200 mg PO BID 12/07/19 02/17/24 History lisinopriL 20 mg PO DAILY 12/07/19 02/17/24 History metFORMIN HCL [Glucophage] 1,000 mg PO BID-W/MEALS 12/07/19 02/17/24 History Albuterol Sulfate [Albuterol 2 puff PO RT-Q6H PRN 02/07/23 02/17/24 History Sulfate Hfa] Famotidine [Pepcid] 40 mg PO BID 02/07/23 02/17/24 History Fenofibrate [Lofibra] 160 mg PO DAILY 02/07/23 02/17/24 History Fluticasone Propionate [Flovent 2 puff INHALATION RT-BID 02/07/23 02/17/24 History Hfa 220 mcg] Gabapentin [Neurontin] 400 mg PO TID 02/07/23 02/17/24 History Insulin NPH Hum/Reg Insulin Hm 18 unit SQ W/SUPPER 02/07/23 02/17/24 History [humuLIN 70/30 Kwikpen] Insulin NPH Hum/Reg Insulin Hm 33 unit SQ W/BRKFST 02/07/23 02/17/24 History [humuLIN 70/30 Kwikpen] OXcarbazepine [Trileptal] 150 mg PO BID 02/07/23 02/17/24 History Tamsulosin HCl [Flomax] 0.4 mg PO HS 02/07/23 02/17/24 History lamoTRIgine [LaMICtal] 75 mg PO BID 02/07/23 02/17/24 History sitaGLIPtin [Januvia] 100 mg PO DAILY 02/07/23 02/17/24 History tiZANidine [Zanaflex] 4 mg PO TID PRN 02/07/23 02/17/24 History traZODone HCL 150 mg PO HS 02/07/23 02/17/24 History Ferrous Sulfate [Iron (65 MG 325 mg PO DAILY 02/09/24 02/17/24 History Elemental)] Atorvastatin [Lipitor] 80 mg PO HS #30 tab 02/13/24 02/17/24 Rx Nicotine 14Mg/24Hr Patch [Habitrol] 1 patch TRANSDERM DAILY #42 patch 02/13/24 02/17/24 Rx Sertraline [Zoloft] 100 mg PO DAILY #30 tab 02/13/24 02/17/24 Rx metroNIDAZOLE [Flagyl] 500 mg PO TID #90 tab 02/13/24 02/17/24 Rx Metoprolol Tartrate [Lopressor] 12.5 mg PO BID 02/17/24 02/17/24 History Allergies Allergy/AdvReac Type Severity Reaction Status Date / Time hydrocodone Allergy hives, Verified 02/17/24 14:07 nausea and vomiting ketorolac [From Toradol] Allergy Abdominal Verified 02/17/24 14:07 Pain mirtazapine [From Remeron] Allergy Abdominal Verified 02/17/24 14:07 Pain pioglitazone [From Actos] Allergy Abdominal Verified 02/17/24 14:07 Pain acetaminophen AdvReac Nausea & Verified 02/17/24 14:07 [From Tylenol-Codeine #3] Vomiting codeine AdvReac Nausea & Verified 02/17/24 14:07 [From Tylenol-Codeine #3] Vomiting Physical Exam Vitals: Vital Signs Temp Pulse Pulse Resp BP BP Pulse Ox 02/18/24 09:10 68 02/18/24 08:59 66 92 L 02/18/24 07:25 98.9 F 71 18 133/77 93 L 02/18/24 03:24 22 94 L 02/18/24 03:22 98.2 F 64 20 125/66 92 L 02/18/24 02:00 72 20 02/18/24 00:00 99.0 F 72 20 143/77 96 02/17/24 22:16 20 98 02/17/24 21:51 92 L 02/17/24 21:25 22 91 L 02/17/24 21:15 99.1 F 72 20 143/73 82 L 02/17/24 20:00 98.3 F 69 19 155/78 92 L 02/17/24 18:00 72 24 157/79 94 L 02/17/24 16:00 80 25 H 145/85 93 L 02/17/24 15:15 77 35 H 158/87 91 L 02/17/24 14:07 22 02/17/24 14:04 98.5 F 81 20 94 L FiO2 02/18/24 09:10 02/18/24 08:59 02/18/24 07:25 02/18/24 03:24 02/18/24 03:22 02/18/24 02:00 02/18/24 00:00 02/17/24 22:16 02/17/24 21:51 100 02/17/24 21:25 02/17/24 21:15 02/17/24 20:00 02/17/24 18:00 02/17/24 16:00 02/17/24 15:15 02/17/24 14:07 02/17/24 14:04 Intake and Output 02/17/24 02/18/24 02/18/24 22:59 06:59 14:59 Intake Total 82.14 Output Total 825 Balance -742.86 Intake: Intake, IV Titration 82.14 Amount Heparin Sod,Pork in 0.45% 82.14 NaCl 25,000 unit In 0.45 % NaCl 1 250ml.bag @ 12 UNITS/KG/HR 9.798 mls/hr IV .Q24H [facility] Rx#: [id number] Output: Urine 825 Other: Voiding Method Urinal Urinal Weight 81.647 kg Results CBC & Chem 7: 02/18/24 06:05 Labs: Abnormal Lab Results - Last 24 Hours (Table) 02/17/24 02/17/24 02/17/24 Range/Units 14:17 14:17 19:10 Potassium (3.5-5.1) mmol/L Chloride (98-107) mmol/L Creatinine (0.66-1.25) mg/dL Glucose (74-99) mg/dL POC Glucose (mg/dL) (70-110) mg/dL Plasma Lactic Acid Zachary 2.3 H* (0.7-2.0) mmol/L Troponin I 0.204 H* 0.113 H* (0.000-0.034) ng/mL 02/17/24 02/17/24 02/17/24 Range/Units 21:48 21:56 22:00 Potassium (3.5-5.1) mmol/L Chloride 108 H (98-107) mmol/L Creatinine 0.57 L (0.66-1.25) mg/dL Glucose 232 H (74-99) mg/dL POC Glucose (mg/dL) 258 H (70-110) mg/dL Plasma Lactic Acid Zachary (0.7-2.0) mmol/L Troponin I 0.093 H* (0.000-0.034) ng/mL 02/18/24 02/18/24 Range/Units 06:05 06:09 Potassium 3.4 L (3.5-5.1) mmol/L Chloride 109 H (98-107) mmol/L Creatinine 0.52 L (0.66-1.25) mg/dL Glucose 183 H (74-99) mg/dL POC Glucose (mg/dL) 207 H (70-110) mg/dL Plasma Lactic Acid Zachary (0.7-2.0) mmol/L Troponin I (0.000-0.034) ng/mL Thrombosis Risk Factor Assmnt - Choose All That Apply Any of the Below Risk Factors Present?: Yes Each Factor Represents 1 point: Age 41-60 years Other Risk Factors: No Other congenital or acquired thrombophilia - If yes, enter type in comment: No Thrombosis Risk Factor Assessment Total Risk Factor Score: 1 Thrombosis Risk Factor Assessment Level: Low Risk
[2024-02-18 16:55] LABS: Glucose,Whole Blood 251 mg/dL (70-110)
[2024-02-18] MEDS: metFORMIN 500 MG TAB PO SCH (16:59)
[2024-02-18 17:26] LABS: Chol/HDL Ratio 4.64 Ratio; LDL Cholesterol,Calculated 30.9 mg/dL (0.0-131.0)
[2024-02-18] MEDS: COLLAGENASE 250 UNIT/GM OINTMENT 30 GM TUBE TOPICAL SCH (18:15)
[2024-02-18] MEDS: SODIUM CHLORIDE 0.65% NASAL SPRAY 44 ML BTL NASAL PRN (19:34)
[2024-02-18 20:18] LABS: Glucose,Whole Blood 203 mg/dL (70-110)
[2024-02-18] MEDS: FORMOTEROL FUMARATE 20 MCG/2 ML NEBU INHALATION SCH (20:24)
[2024-02-18] MEDS: BUDESONIDE 1 MG/2 ML NEBU INHALATION SCH (20:24)
[2024-02-18] MEDS: tiZANidine 4 MG TAB PO PRN (22:00)
[2024-02-19 06:33] LABS: Glucose,Whole Blood 293 mg/dL (70-110)
[2024-02-19 06:47] LABS: Basophils % (A) 0 %; Eosinophils % (A) 0 %; HCT 32.3 % (39.0-53.0); HGB 10.5 gm/dL (13.0-17.5); Lymphocytes # (A) 0.7 k/uL (1.0-4.8); Lymphocytes % (A) 6 %; MCH 30.3 pg (25.0-35.0); MCHC 32.4 g/dL (31.0-37.0); MCV 93.4 fL (80.0-100.0); Mean Platelet Volume 7.9; Monocytes # (A) 0.4 k/uL (0-1.0); Monocytes % (A) 3 %; Neutrophils # (A) 10.1 k/uL (1.3-7.7); Neutrophils % (A) 89 %; Platelet Count 229 k/uL (150-450); RBC 3.46 m/uL (4.30-5.90); RDW 13.4 % (11.5-15.5); WBC 11.4 k/uL (3.8-10.6)
[2024-02-19] MEDS: ASPIRIN 81 MG PO SCH (08:21)
[2024-02-19 11:26] LABS: Glucose,Whole Blood 96 mg/dL (70-110)
--- NOTE | 2024-02-19 13:30 | P.PN ---
Subjective Progress Note Date: 02/19/24 Reason for Consult (text): NSTEMI History of present illness: History of present illness: This is a 43-year-old male with past medical history of diabetes mellitus type 2, hypertension, asthma, osteomyelitis of the left foot fifth metatarsal. We have been asked to evaluate the patient for non-ST elevated GA. Patient initially presented to [facility]'s been diagnosed with pneumonia, PE was ruled out. Patient was transferred to [facility]. He currently denies having any chest pain. He states he has had shortness of breath for 3 days along with cough that is nonproductive. No fever or chills. He states he feels a little lightheaded, no syncopal episodes. Positive orthopnea. He is a smoker 1 pack/day and quit smoking 5 days ago. He denies any family medical history of coronary artery disease. EKG sinus mechanism with nonspecific changes and V1, V2, inferior leads, low voltage Chest x-ray: Worsening of the mid and lower lung airspace disease compared to 02/13/2024. Laboratory studies: Sodium 141, potassium 3.4, BUN 13 creatinine 0.52. Troponins 0.093, 0.113, 0.204. Home cardiac medications: Aspirin 81 mg daily, atorvastatin 80 mg at bedtime, fenofibrate 160 mg daily, ferrous sulfate 325 mg daily, lisinopril 20 mg daily, Lopressor 12.5 mg twice daily nicotine patch, Januvia 100 mg daily. 02/18 Patient is seen today in follow-up on the cardiac stepdown unit. He states he only has chest pain when he is coughing. His breathing status is improved. Noted to have no wheezing today. Nitropaste will be discontinued. Patient has gone from 12 L nasal cannula down to 2 L nasal cannula. Echocardiogram is pending. He is maintained on heparin drip with plan for total 48 hours. Discussed options of cardiac catheterization with the patient. We will follow- up again on this after echocardiogram is available. Blood pressure 121/61, heart rate 83, pulse ox 90% on 2 L nasal cannula. Repeat blood work reveals WBC 11.4, hemoglobin 10.5. BNP 1500. Physical examination: Gen: This is a 43-year-old male with frequent coughing, wheezing VS: reviewed HEENT: Head is atraumatic, normocephalic. Pupils equal, round. Sclerae is anicteric. NECK: Supple. No JVD. LUNGS: Expiratory wheeze throughout, no intercostal retractions. HEART: Regular rate and rhythm. No murmur. ABDOMEN: Soft No tenderness. EXTREMITIES: No pedal edema. Dressing in place to the left foot. NEUROLOGICAL: Patient is awake, alert and oriented x3. Assessment: Acute hypoxic respiratory failure secondary to asthma exacerbation and possible component of heart failure Non-ST elevated myocardial infarction, rule out type I versus type II Asthma exacerbation Diabetes mellitus type 2, insulin requiring Hypertension Osteomyelitis of the left foot Plan: Continue current cardiac medications: Aspirin 81 mg daily, atorvastatin 80 mg daily, lisinopril 20 mg daily, metoprolol tartrate 12.5 mg twice daily Discontinue heparin drip Obtain 2-D echocardiogram and Doppler study to assess cardiac structure and function Further recommendations to follow based upon clinical course Nurse practitioner note has been reviewed, I agree with documented findings and plan of care. Patient was seen and examined. Objective - Vital Signs Vital signs: Vital Signs Temp 98.1 F 02/19/24 04:00 Pulse 72 02/19/24 08:24 Resp 16 02/19/24 07:37 BP 125/70 02/19/24 07:37 Pulse Ox 93 L 02/19/24 08:06 FiO2 100 02/17/24 21:51 Intake & Output 02/18/24 02/19/24 02/19/24 18:59 06:59 18:59 Intake Total 417.253 606.875 Output Total 351 400 Balance 66.253 206.875 Weight 77.8 kg Intake: Intake, IV Titration 167.253 126.875 Amount Heparin Sod,Pork in 0.45% 167.253 126.875 NaCl 25,000 unit In 0.45 % NaCl 1 250ml.bag @ 12 UNITS/KG/HR 9.798 mls/hr IV .Q24H MARYELLEN Rx#: [id number] Oral 250 480 Output: Urine 350 400 Stool 1 Other: Voiding Method Urinal # Voids 1 1 - Labs CBC & Chem 7: 02/19/24 06:27 02/18/24 06:05 Labs: Abnormal Lab Results - Last 24 Hours (Table) 02/18/24 02/18/24 02/18/24 Range/Units 06:05 12:03 12:25 WBC (3.8-10.6) k/uL RBC (4.30-5.90) m/uL Hgb (13.0-17.5) gm/dL Hct (39.0-53.0) % Neutrophils # (1.3-7.7) k/uL Lymphocytes # (1.0-4.8) k/uL APTT (22.0-30.0) sec POC Glucose (mg/dL) 130 H (70-110) mg/dL Triglycerides 226.00 H (0.00-149.00) mg/dL VLDL Cholesterol, Calc 45.20 H (5.00-40.00) mg/dL HDL Cholesterol 20.90 L (40.00-60.00) mg/dL Procalcitonin 0.14 H (0.02-0.09) ng/mL 02/18/24 02/18/24 02/19/24 Range/Units 16:50 20:17 03:06 WBC (3.8-10.6) k/uL RBC (4.30-5.90) m/uL Hgb (13.0-17.5) gm/dL Hct (39.0-53.0) % Neutrophils # (1.3-7.7) k/uL Lymphocytes # (1.0-4.8) k/uL APTT 36.9 H (22.0-30.0) sec POC Glucose (mg/dL) 251 H 203 H (70-110) mg/dL Triglycerides (0.00-149.00) mg/dL VLDL Cholesterol, Calc (5.00-40.00) mg/dL HDL Cholesterol (40.00-60.00) mg/dL Procalcitonin (0.02-0.09) ng/mL 02/19/24 02/19/24 Range/Units 06:27 06:32 WBC 11.4 H (3.8-10.6) k/uL RBC 3.46 L (4.30-5.90) m/uL Hgb 10.5 L (13.0-17.5) gm/dL Hct 32.3 L (39.0-53.0) % Neutrophils # 10.1 H (1.3-7.7) k/uL Lymphocytes # 0.7 L (1.0-4.8) k/uL APTT (22.0-30.0) sec POC Glucose (mg/dL) 293 H (70-110) mg/dL Triglycerides (0.00-149.00) mg/dL VLDL Cholesterol, Calc (5.00-40.00) mg/dL HDL Cholesterol (40.00-60.00) mg/dL Procalcitonin (0.02-0.09) ng/mL Microbiology - Last 24 Hours (Table) 02/17/24 19:19 Blood Culture - Preliminary Blood 02/17/24 19:13 Blood Culture - Preliminary Blood
--- NOTE | 2024-02-19 13:49 | P.PN ---
Subjective Progress Note Date: 02/19/24 Principal diagnosis: Shortness of breath and cough. This is a 43-year-old male patient who has a history of diabetes mellitus, hypertension, hyperlipidemia, seizures, anxiety/depression, schizophrenia, panic disorder, chronic obstructive pulmonary disease with chronic and ongoing tobacco dependence. He was just discharged from here on 02/13/2024 for having ongoing issues with left foot pain and infection. He was found to have acute osteomyelitis of the left foot fifth metatarsal this is been an ongoing issue. He received 2 weeks of clindamycin in the outpatient setting. He recently presented to [facility] with increasing shortness of breath, cough and congestion. His O2 saturations were in the 70s. CT scan of the chest had revealed evidence of pneumonia and borderline troponin levels and he was sent to our emergency room for further evaluation and treatment. Chest x-ray reveals mid and lower lobe airspace disease which is worse compared to previous here 02/13/2024. Sodium 141. Potassium 3.4. Bicarb 26. BUN 13. Creatinine 0.52. Glucose 183. Troponin 0.093. proBNP 1500. He is seen today in consultation in the emergency department. He is currently sitting up on a stretcher. Awake and alert in no acute distress. He is quite hypoxemic requiring 15 L of high flow nasal cannula to maintain O2 saturations to high 80s low 90s. He has been initiated on a heparin drip. He is receiving bronchodilators. He was started on ceftriaxone and azithromycin. Progress note dated February 19, 2024. This is a 43-year-old male who we saw in the emergency department yesterday. He has a history of diabetes mellitus, hypertension, hyperlipidemia, seizure disorder, anxiety/depression, schizophrenia, panic disorder, and COPD from chronic and ongoing tobacco use. The patient came in with complaints of increasing shortness of breath, cough, wheezing, and chest tightness. He was placed on albuterol sulfate, ipratropium bromide, budesonide, formoterol, and Solu-Medrol. I am happy to report that he is feeling much better. He has been weaned down to 2 L of oxygen. We saw him in the emergency department yesterday, he was on 15 L high flow. He is receiving saline at 20 cc an hour. He is sitting up in bed, in no respiratory distress. Current labs include white count 11.4, hemoglobin 10.5, hematocrit 32.3, platelet count 229,000. Glucose is 96. Objective - Vital Signs Vital signs: Vital Signs Temp 98.1 F 02/19/24 04:00 Pulse 74 02/19/24 11:31 Resp 16 02/19/24 11:22 BP 121/61 02/19/24 11:22 Pulse Ox 90 L 02/19/24 11:22 FiO2 100 02/17/24 21:51 Intake & Output 02/18/24 02/19/24 02/19/24 18:59 06:59 18:59 Intake Total 417.253 789.024 4589.125 Output Total 351 400 Balance 66.253 461.651 0050.125 Weight 77.8 kg Intake: Intake, IV Titration 167.253 126.875 123.125 Amount Heparin Sod,Pork in 0.45% 167.253 126.875 123.125 NaCl 25,000 unit In 0.45 % NaCl 1 250ml.bag @ 12 UNITS/KG/HR 9.798 mls/hr IV .Q24H MARYELLEN Rx#: [id number] Oral 893 049 1020 Output: Urine 350 400 Stool 1 Other: Voiding Method Urinal # Voids 1 1 - Exam No acute distress, oriented 3. Currently on 2 L of oxygen. Saturations are 90 to 92%. HEENT examination is grossly unremarkable. Mucous membranes are moist. No oral lesions. Neck supple. Full range of motion. No adenopathy thyromegaly or neck vein di stention. Cardiovascular examination reveals regular rhythm rate. S1-S2 normal. No S3 or S4. No discernible murmur noted. Heart sounds are distant. Heart rate 74 bpm. Lungs reveal scattered bilateral rhonchi and wheezes. Breath sounds are equal bilaterally. Breath sounds are diminished throughout. No crackles. Slight prolongation on forced maneuver. Abdomen soft bowel sounds are heard. No masses or tenderness. Extremities are intact. No cyanosis clubbing or edema. Skin is without rash or lesion. Neurologic examination is brief but nonfocal. - Labs CBC & Chem 7: 02/19/24 06:27 02/18/24 06:05 Labs: Abnormal Lab Results - Last 24 Hours (Table) 02/18/24 02/18/24 02/18/24 Range/Units 06:05 12:03 16:50 WBC (3.8-10.6) k/uL RBC (4.30-5.90) m/uL Hgb (13.0-17.5) gm/dL Hct (39.0-53.0) % Neutrophils # (1.3-7.7) k/uL Lymphocytes # (1.0-4.8) k/uL APTT (22.0-30.0) sec POC Glucose (mg/dL) 251 H (70-110) mg/dL Triglycerides 226.00 H (0.00-149.00) mg/dL VLDL Cholesterol, Calc 45.20 H (5.00-40.00) mg/dL HDL Cholesterol 20.90 L (40.00-60.00) mg/dL Procalcitonin 0.14 H (0.02-0.09) ng/mL 02/18/24 02/19/24 02/19/24 Range/Units 20:17 03:06 06:27 WBC 11.4 H (3.8-10.6) k/uL RBC 3.46 L (4.30-5.90) m/uL Hgb 10.5 L (13.0-17.5) gm/dL Hct 32.3 L (39.0-53.0) % Neutrophils # 10.1 H (1.3-7.7) k/uL Lymphocytes # 0.7 L (1.0-4.8) k/uL APTT 36.9 H (22.0-30.0) sec POC Glucose (mg/dL) 203 H (70-110) mg/dL Triglycerides (0.00-149.00) mg/dL VLDL Cholesterol, Calc (5.00-40.00) mg/dL HDL Cholesterol (40.00-60.00) mg/dL Procalcitonin (0.02-0.09) ng/mL 02/19/24 Range/Units 06:32 WBC (3.8-10.6) k/uL RBC (4.30-5.90) m/uL Hgb (13.0-17.5) gm/dL Hct (39.0-53.0) % Neutrophils # (1.3-7.7) k/uL Lymphocytes # (1.0-4.8) k/uL APTT (22.0-30.0) sec POC Glucose (mg/dL) 293 H (70-110) mg/dL Triglycerides (0.00-149.00) mg/dL VLDL Cholesterol, Calc (5.00-40.00) mg/dL HDL Cholesterol (40.00-60.00) mg/dL Procalcitonin (0.02-0.09) ng/mL Microbiology - Last 24 Hours (Table) 02/17/24 19:19 Blood Culture - Preliminary Blood 02/17/24 19:13 Blood Culture - Preliminary Blood Assessment and Plan Assessment: Acute hypoxemic respiratory failure secondary to an acute community-acquired versus healthcare acquired pneumonia. Acute exacerbation of chronic obstructive pulmonary disease. Recent admission for osteomyelitis of the left foot and fifth metatarsal. Chronic and ongoing tobacco dependence. Diabetes mellitus. Hypertension. History of hyperlipidemia. History of seizure disorder. History of anxiety/depression. History of bipolar disorder, schizophrenia. Plan: Plan dated February 19, 2024. The patient is doing much better. The patient continues on breathing treatments, and corticosteroids. Labs, x-rays, and medications are reviewed. The patient is counseled about the importance of smoking cessation. The procalcitonin level was mildly elevated at 0.14. We will continue to follow the patient, make recommendations along the way. Labs, x-rays, and all medications are reviewed. The patient is feeling much better. Time with Patient: Less than 30
--- NOTE | 2024-02-19 14:15 | P.CON ---
Consult Note - . Consult date: 02/19/24 Assessment/Plan:: Podiatric surgery Chief complaint: Left foot ulceration HPI: Patient is admitted for evaluation of pneumonia. Patient was recently discharged after incision and drainage of left foot ulceration and bone biopsy. Patient has not followed up as outpatient yet. He was now readmitted for this condition. Patient has had home care changing his dressings every other day with Betadine and dry sterile dressings. He rates his pain as a 6 out of 10 to the left foot when touched and is 0 out of 10 when not touched. He denies any increase in drainage, malodor or swelling/redness. He is very happy with his progress. Lower extremity exam Alert and oriented x 3, NAD Vascular: Nonpalpable DP and PT pulse are 1 out of 4 bilateral. No edema to the left lower extremity. No erythema to the foot. CFT less than 3 seconds to all digits. Derm: Hyperkeratotic tissue surrounding the lateral left foot overlying previous ulceration site. Any loose hyperkeratotic tissue was debrided. This was to level patient's tolerance. Patient was reporting pain with debridement so no further debridement was performed. At this time I see no signs of open ulceration this is either callused over or epithelialized. No malodor, erythema, proximal streaking or acute signs of bacterial infection present. Neuro: Decreased light touch sensation to the level of the digits. [place]- Aime monofilament is a 2 out of 10 to the left foot. MSK: Extensive pain with palpation of the left foot today. Gross range of motion intact to the digits as well as the ankle. No pain with palpation of the calf. Calves are soft and supple bilateral. Assessment: 1. Status post incision and drainage of abscess left foot with bone biopsy 2. History of chronic ulcer left foot 3. Diabetes mellitus with peripheral neuropathy Plan: With patient verbal consent hyperkeratotic tissue was resected surrounding previous ulceration site. Patient did not tolerate this well and procedure was stopped. No formal debridement was performed. No current open ulceration is appreciated. Site was swabbed with Betadine and Mepilex border was applied. Wound care to continue with every other day dressing changes as stated above. Clinically no acute signs of bacterial presence or cellulitis. Patient to follow-up in [facility] next week after discharge. Thank you for this consult. Latha Pereyra D.P.M., AACFAS
[2024-02-19] MEDS ORDERED: VANCOMYCIN IV PER PHARMACY 1 EACH MISC MISCELLANE PRN (16:12)
--- NOTE | 2024-02-19 16:18 | P.PN ---
Progress Note - Text Progress Note Date: 02/19/24 Chief Complaint: Short of breath This is a pleasant 43-year-old patient who follows with Dr. Prasad Matthews. Chronic stable medical condition include COPD, diabetes, GERD, hyperlipidemia, essential hypertension, grand mal seizure several years ago, hemorrhoids, psoriasis, previous TIA with no residual. 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 Bipolar. Patient was just in the hospital from February 08 through February 12: Had undergone t surgery on the left foot and some bone was taken off. unclear as to the reason for the same. This was done by physician out of the area. Surgery was done in January 04. About 3 weeks ago patient developed a wound in that area. He did go down to [facility] where he finished 2 weeks of clindamycin about a week ago. Patient now for the last 5 days having increasing pain swelling tenderness at that area. Finally decided to come in. In the ER was started on vancomycin. Patient is a longstanding smoker denies any obvious fever and chills. No change in bowel pattern. Decreased appetite. February 09 patient underwent surgery of the left foot by Dr. Pereyra. Pus was obtained. It was felt that patient's left metatarsal need to be removed. Down the road he was discharged on IV antibiotic and PICC line Patient presented to [facility] he was sent here because of slightly elevated troponin. Having trouble breathing. Pulse ox in the 70s. He did smoke the day after he left and stopped. CT scan done that showed some pneumonia but no PE. Troponin was 0.067. Patient's had a cough. Very little sputum. Specks of blood. No fever no chills. Decreased appetite. February 18: Patient initially was on 15 L of high flow oxygen when he first presented. Now down to 2 L this morning. Breathing better. Eating about 50%. Patient seen by Dr. Pereyra from podiatry. She did some resection of the hyperkeratotic tissue foot size. The patient is to follow-up with her at [facility] wound center next week. IV vancomycin for left foot and stomatitis.-ID consulted Active Medications Albuterol/Ipratropium (Ipratropium-Albuterol 3 Ml Neb) 3 ml INHALATION RT-Q2H PRN PRN Reason: Shortness Of Breath Or Wheezing Last Admin: 06/05/24 08:49 Dose: 3 ml Albuterol/Ipratropium (Ipratropium-Albuterol 3 Ml Neb) 3 ml INHALATION RT-Q4H [facility] Last Admin: 02/19/24 15:36 Dose: 3 ml Aspirin (Aspirin 81 Mg) 81 mg PO DAILY [facility] Last Admin: 02/19/24 08:21 Dose: 81 mg Atorvastatin Calcium (Atorvastatin 80 Mg Tab) 80 mg PO HS [facility] Last Admin: 02/18/24 20:51 Dose: 80 mg Budesonide (Budesonide 1 Mg/2 Ml Nebu) 1 mg INHALATION RT-BID [facility] Last Admin: 02/19/24 08:06 Dose: 1 mg Collagenase (Collagenase 250 Unit/Gm Ointment 30 Gm Tube) 1 applic TOPICAL DAILY [facility]; Protocol Last Admin: 02/19/24 11:17 Dose: 1 applic Dextrose/Water (Dextrose 50% Syringe 50 Ml) 25 ml IVP PER PROTOCOL PRN; Protocol PRN Reason: Hypoglycemia Dextrose/Water (Dextrose 50% Syringe 50 Ml) 50 ml IVP PER PROTOCOL PRN; Protocol PRN Reason: Hypoglycemia Famotidine (Famotidine 20 Mg Tab) 40 mg PO BID [facility] Last Admin: 02/19/24 08:21 Dose: 40 mg Fenofibrate (Fenofibrate 160 Mg Tab) 160 mg PO DAILY [facility] Last Admin: 02/19/24 08:22 Dose: 160 mg Ferrous Sulfate (Ferrous Sulfate 325 Mg Tab) 325 mg PO DAILY [facility] Last Admin: 02/19/24 08:21 Dose: 325 mg Formoterol Fumarate (Formoterol Fumarate 20 Mcg/2 Ml Nebu) 20 mcg INHALATION RT-BID [facility] Last Admin: 02/19/24 08:06 Dose: 20 mcg Gabapentin (Gabapentin 400 Mg Cap) 400 mg PO TID [facility] Last Admin: 02/19/24 15:51 Dose: 400 mg Ceftriaxone Sodium 2 gm/ (Sodium Chloride) 50 mls @ 100 mls/hr IVPB Q24HR [facility]; Protocol Stop: 02/21/24 09:29 Last Admin: 02/19/24 08:22 Dose: 100 mls/hr Ibuprofen (Ibuprofen 400 Mg Tab) 400 mg PO Q8HR PRN PRN Reason: Pain Insulin Aspart (Insulin Aspart (Novolog) 100 Unit/Ml Vial) 0 unit SQ ACHS [facility]; Protocol Last Admin: 02/19/24 11:26 Dose: Not Given Insulin Aspart (Insuln Asp Prt/Insulin Aspart 100 Unit/Ml 10 Ml Vial) 18 unit SQ W/SUPPER [facility] Last Admin: 02/18/24 17:00 Dose: 18 unit Insulin Aspart (Insuln Asp Prt/Insulin Aspart 100 Unit/Ml 10 Ml Vial) 33 unit SQ W/BRKFST [facility] Last Admin: 02/19/24 06:44 Dose: 33 unit Lamotrigine (Lamotrigine 25 Mg Tab) 75 mg PO BID [facility] Last Admin: 02/19/24 08:21 Dose: 75 mg Lamotrigine (Lamotrigine 100 Mg Tab) 200 mg PO BID [facility] Last Admin: 02/19/24 08:21 Dose: 200 mg Levothyroxine Sodium (Levothyroxine 50 Mcg Tab) 50 mcg PO DAILY@30 [facility] Last Admin: 02/19/24 06:40 Dose: 50 mcg Linagliptin (Linagliptin 5 Mg Tablet) 5 mg PO DAILY [facility] Last Admin: 02/19/24 08:21 Dose: 5 mg Lisinopril (Lisinopril 20 Mg Tab) 20 mg PO DAILY [facility] Last Admin: 02/19/24 08:21 Dose: 20 mg Metformin HCl (Metformin 500 Mg Tab) 1,000 mg PO BID-W/MEALS [facility] Last Admin: 02/19/24 06:45 Dose: 1,000 mg Methylprednisolone Sodium Succinate (Methylprednisolone Sod Succi 125 Mg/2 Ml Vial) 60 mg IV Q6HR [facility] Last Admin: 02/19/24 11:24 Dose: 60 mg Metoprolol Tartrate (Metoprolol Tartrate 12.5 Mg Tab) 12.5 mg PO BID [facility] Last Admin: 02/19/24 08:21 Dose: 12.5 mg Miscellaneous Information (Pneumonia Protocol Utilized 1 Each Misc) 1 each PO ONCE PRN PRN Reason: Per Protocol Miscellaneous Information (Potassium Replacement Protocol 1 Each Misc) 1 each MISCELLANE DAILY PRN; Protocol PRN Reason: Per Protocol Nicotine (Nicotine 14mg/24hr Patch) 1 patch TRANSDERM DAILY [facility] Last Admin: 02/19/24 08:23 Dose: Not Given Nitroglycerin (Nitroglycerin Sl Tabs 0.4 Mg Tab) 0.4 mg SUBLINGUAL Q5M PRN PRN Reason: Chest Pain Non-Formulary Medication (Brivaracetam [Briviact]) 50 mg PO BID [facility] Last Admin: 02/19/24 08:22 Dose: Not Given Oxcarbazepine (Oxcarbazepine 150 Mg Tab) 150 mg PO BID [facility] Last Admin: 02/19/24 08:23 Dose: 150 mg Sertraline HCl (Sertraline 100 Mg Tab) 100 mg PO DAILY [facility] Last Admin: 02/19/24 08:21 Dose: 100 mg Sodium Chloride (Sodium Chloride 0.65% Nasal [place] 44 Ml Btl) 2 spray NASAL QID PRN PRN Reason: Dry Nasal Passages Last Admin: 02/18/24 19:34 Dose: 2 spray Tamsulosin HCl (Tamsulosin 0.4 Mg Cap.Er.24h) 0.4 mg PO HS [facility] Last Admin: 02/18/24 20:50 Dose: 0.4 mg Tizanidine HCl (Tizanidine 4 Mg Tab) 4 mg PO TID PRN PRN Reason: Pain Last Admin: 02/19/24 06:19 Dose: 4 mg Trazodone HCl (Trazodone Hcl 50 Mg Tab) 150 mg PO [facility] Last Admin: 02/18/24 20:50 Dose: 150 mg Social history: Patient lives with his parents. Smokes half a pack a day for last 30 years. CBD oil. Alcohol occasionally Physical examination: VITAL SIGNS: 98.1, 73, 16, 125/70, 90% on 2 L GENERAL: Lying in bed, eating better EYES: Pupils equal. Conjunctiva chelsi l. HEENT: External appearance of nose and ears normal, oral cavity grossly normal. NECK: JVD not raised; masses not palpable. HEART: First and second heart sounds are normal; no edema. LUNGS: Respiratory rate increased l; decreased breath sounds, improved wheezing ABDOMEN: Soft, nontender, liver spleen not palpable, no masses palpable. PSYCH: [Alert and oriented x3; mood and affect. Anxious. MUSCULOSKELETAL:No Clubbing/cyanosis;muscles-grossly intact. Left foot: Wound INVESTIGATIONS, reviewed in the clinical context: February 19, 2024: White count 9.4 hemoglobin 10.5 platelets 229 February 18, 2024: Sodium 141 potassium 3.4 BUN 13 creatinine 0.52 blood glucose 183 Troponin I 0.093 proBNP 1500 Wound culture: MRSA, StaphylococcusL,Finegoldia M Blood culture: Pending February 11, 2024: White count 9.1 hemoglobin 12.5 platelets 195 potassium 4.6 creatinine 0.73 February 09, 2024: White count 8.8 hemoglobin 13.8 platelets 209 potassium 3.8. 5 creatinine 0.75 blood glucose 116 X-ray left foot complete: Soft tissue swelling throughout the foot. Fixation screws in the fourth metacarpal appear intact. Suspected fifth metacarpal base fracture remains present. Assessment plan: -Acute osteomyelitis of left foot fifth metatarsal Wound culture:MRSA, StaphylococcusL,Skyler M on February 09 -Acute left foot abscess/soft tissue infection, in the foot that underwent surgery on January 04. Initial indication for surgery unclear. Patient 3 weeks ago started having pain and swelling. Did receive clindamycin for 2 weeks, stopped a week ago. Last 5 days symptoms have been worsening.: Acute osteomyelitis of left fifth foot metatarsal bone February 09: Bedside De- ykra was done by Dr. Pereyra-pus was obtained. Liter: Incision and drainage with debridement of left foot ulcer. And bone biopsy of left fifth metatarsal done. Cultures-showing multiple organisms including MRSA Patient seen on this admission by Dr. Pereyra.-To follow-up at wound care center at [facility] -Pneumonia suspect gram-negative organism IV ceftriaxone given. Switch to Omnicef from tomorrow -Possible acute non-Q wave NH. IV heparin-discontinued. Aspirin Lopressor Cardiology following -IV heparin monitoring-discontinued Follow PTT -Acute hypoxic respiratory failure from COPD exacerbation Patient requiring 15 L oxygen-on presentation -Chronic nicotine dependence cigarette smoker Nicotine patch -Acute COPD exacerbation in a current smoker DuoNeb every 4. IV Solu-Medrol -Diabetes mellitus type 1 on insulin Januvia. Glucophage. Insulin -Hyperlipidemia Lofibra -Hypothyroid Synthroid 50 mcg -Bipolar disorder Continue home medication for the same -Essential hypertension Lisinopril -Epilepsy/grand mal seizures. Last episode several years ago. Briviact. Trileptal -Full code To Omnicef from tomorrow. Up in chair. Decrease FiO2. Incentive spirometry.
[2024-02-19 16:39] LABS: Glucose,Whole Blood 247 mg/dL (70-110)
--- NOTE | 2024-02-19 17:33 | CA ---
Transthoracic Echo Report Name: Geo Mcmahan Age: 43 Gender: M : 1980 Exam Date: 02/19/2024 13:31 Exam Location: [facility] Ht (in): 66 Wt (lb): 171 Ordering Physician: Jeirca Aranda Attending/Referring Phys: [id number], Manoj Bpm Architect Procedure CPT: Indications: LVF Cardiac Hx: Technical Quality: Good Contrast 1: Total Dose (mL): Contrast 2: Total Dose (mL): MEASUREMENTS (Male / Female) Normal Values 2D ECHO LV Diastolic Diameter PLAX 5.3 cm 4.2 - 5.9 / 3.9 - 5.3 cm LV Systolic Diameter PLAX 3.3 cm IVS Diastolic Thickness 0.8 cm 0.6 - 1.0 / 0.6 - 0.9 cm LVPW Diastolic Thickness 0.8 cm 0.6 - 1.0 / 0.6 - 0.9 cm LV Relative Wall Thickness 0.3 RV Internal Dim ED PLAX 3.7 cm LVOT Diameter 2.2 cm LV Diastolic Volume MOD BP 150.5 cm??? 67 - 155 / 56 - 104 cm??? LV Systolic Volume MOD BP 47.2 cm??? 22 - 58 / 19 - 49 cm??? LV Ejection Fraction MOD BP 68.7 % >= 55 % LV Cardiac Index MOD BP 4740.6 cm???/min???m??? LV Diastolic Volume MOD 4C 152.9 cm??? LV Systolic Volume MOD 4C 50.1 cm??? LV Ejection Fraction MOD 4C 67.2 % LV Cardiac Index MOD 4C 4715.5 cm???/min???m??? LV Diastolic Length 4C 9.5 cm LV Systolic Length 4C 7.6 cm LV Diastolic Volume MOD 2C 147.2 cm??? LV Systolic Volume MOD 2C 40.7 cm??? LV Ejection Fraction MOD 2C 72.4 % LV Cardiac Index MOD 2C 4884.4 cm???/min???m??? LV Diastolic Length 2C 9.4 cm LV Systolic Length 2C 6.9 cm LA Volume 74.4 cm??? 18 - 58 / 22 - 52 cm??? LA Volume Index 38.8 cm???/m??? 16 - 28 cm???/m??? Ascending Aorta Diameter 3.3 cm DOPPLER AV Peak Velocity 176.2 cm/s AV Peak Gradient 12.4 mmHg AV Mean Velocity 112.3 cm/s AV Mean Gradient 5.9 mmHg AV Velocity Time Integral 35.7 cm LVOT Peak Velocity 137.2 cm/s LVOT Peak Gradient 7.5 mmHg LVOT Velocity Time Integral 27.6 cm LVOT Stroke Volume 106.7 cm??? LVOT Stroke Volume Index 57.0 ml/m??? LVOT Cardiac Index 4894.5 cm???/min???m??? AV Area Cont Eq vti 3.0 cm??? AV Area Cont Eq pk 3.0 cm??? MV Area PHT 4.8 cm??? Mitral E Point Velocity 105.0 cm/s Mitral A Point Velocity 66.8 cm/s Mitral E to A Ratio 1.6 MV Deceleration Time 157.5 ms PV Peak Velocity 111.9 cm/s PV Peak Gradient 5.0 mmHg FINDINGS Left Ventricle Left ventricular ejection fraction is estimated at 60-65 %. Left ventricular cavity size normal. Left ventricular wall thickness normal. No obvious regional wall motion abnormalities. Right Ventricle Mild right ventricular dilatation with normal function. Unable to estimate the right ventricular systolic pressure. Right Atrium Moderate right atrial dilatation. Left Atrium Moderately increased left atrial volume. Mildly increased left atrial area. Mitral Valve Structurally normal mitral valve. No evidence for mitral valve prolapse. No mitral stenosis. Trace mitral regurgitation. Aortic Valve Trileaflet aortic valve. No aortic stenosis. No aortic regurgitation. Tricuspid Valve Structurally normal tricuspid valve. No tricuspid stenosis. Trace tricuspid regurgitation. Pulmonic Valve Structurally normal pulmonic valve. No pulmonic regurgitation. No pulmonic stenosis. Pericardium No pericardial effusion. Aorta Normal size aortic root and proximal ascending aorta. CONCLUSIONS Normal LV function Previewed by: Dr. Tamir Lerner MD (Electronically Signed) Final Date: 19 February 2024 17:32
[2024-02-19] MEDS: VANCOMYCIN 1,500 MG in SODIUM CHLORIDE 0.9% 500 ML 500 ML IVPB SCH (19:09)
[2024-02-19 20:09] LABS: Glucose,Whole Blood 150 mg/dL (70-110)
--- NOTE | 2024-02-19 22:09 | P.CONS ---
History of Present Illness - Reason for Consult Consult date: 02/19/24 - History of Present Illness Patient is a 43-year-old male with a past medical history significant for diabetes mellitus hypertension hyperlipidemia seizure disorder with recent admission to the hospital has been diagnosed with the left diabetic foot infection with underlying osteomyelitis culture positive for MRSA, Staphylococcus Lugdunenisis along with finegoldia Magna and the patient was getting outpatient IV vancomycin and oral Flagyl patient apparently presented to the [facility] ER 2 days ago for evaluation of increasing shortness of breath with the patient was noticed to have elevated troponin low potassium and pneumonia patient did have a CT of the chest that was negative for PE and there was concern for possible pneumonia patient was started on vancomycin and cefepime subsequent has been transferred to [facility] for further evaluation patient has been eval by cardiology, patient on presentation the hospital was afebrile and no fever have recorded subsequently patient was not t achycardic hypotensive mildly hypoxic currently on 2 L current oxygen patient did have a white count of 11.4 creatinine 0.52 patient did have a chest x-ray worsening of the mid and lower lung airspace disease compared to 531 patient did have procalcitonin 0.14 currently on vancomycin, Rocephin and Zithromax infectious disease was consulted for further management of antibiotic therapy Past Medical History Past Medical History: Asthma, Chest Pain / Angina, COPD, CVA/TIA, Diabetes Mellitus, GERD/Reflux, Hyperlipidemia, Hypertension, Seizure Disorder, Skin D isorder Additional Past Medical History / Comment(s): IDDM type II, grand mal seizures, coughing from cigarettes, hemorrhoid, constipation/diarrhea, hx psoriasis, eczema, back pain, hydrocele. 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 Smoking Status: Current every day smoker, Light tobacco smoker Past Alcohol Use History: Occasional Additional Past Alcohol Use History / Comment(s): smoking 1/2 PPD, started smoking age 13 Past Drug Use History: None Reported Additional Drug Use History / Comment(s): CBD oil - Past Family History Sister(s) Family Medical History: Cancer Mother Family Medical History: Cancer Father Family Medical History: Cancer Medications and Allergies Home Medications Medication Instructions Recorded Confirmed Type Haloperidol Decanoate [Haldol D] 200 mg IM Q21D 07/31/14 02/17/24 History Aspirin [Adult Low Dose Aspirin EC] 81 mg PO DAILY 12/07/19 02/17/24 History Brivaracetam [Briviact] 50 mg PO BID 12/07/19 02/17/24 History Levothyroxine Sodium [Synthroid] 50 mcg PO DAILY 12/07/19 02/17/24 History lamoTRIgine [LaMICtal] 200 mg PO BID 12/07/19 02/17/24 History lisinopriL 20 mg PO DAILY 12/07/19 02/17/24 History metFORMIN HCL [Glucophage] 1,000 mg PO BID-W/MEALS 12/07/19 02/17/24 History Albuterol Sulfate [Albuterol 2 puff PO RT-Q6H PRN 02/07/23 02/17/24 History Sulfate Hfa] Famotidine [Pepcid] 40 mg PO BID 02/07/23 02/17/24 History Fenofibrate [Lofibra] 160 mg PO DAILY 02/07/23 02/17/24 History Fluticasone Propionate [Flovent 2 puff INHALATION RT-BID 02/07/23 02/17/24 History Hfa 220 mcg] Gabapentin [Neurontin] 400 mg PO TID 02/07/23 02/17/24 History Insulin NPH Hum/Reg Insulin Hm 18 unit SQ W/SUPPER 02/07/23 02/17/24 History [humuLIN 70/30 Kwikpen] Insulin NPH Hum/Reg Insulin Hm 33 unit SQ W/BRKFST 02/07/23 02/17/24 History [humuLIN 70/30 Kwikpen] OXcarbazepine [Trileptal] 150 mg PO BID 02/07/23 02/17/24 History Tamsulosin HCl [Flomax] 0.4 mg PO HS 02/07/23 02/17/24 History lamoTRIgine [LaMICtal] 75 mg PO BID 02/07/23 02/17/24 History sitaGLIPtin [Januvia] 100 mg PO DAILY 02/07/23 02/17/24 History tiZANidine [Zanaflex] 4 mg PO TID PRN 02/07/23 02/17/24 History traZODone HCL 150 mg PO HS 02/07/23 02/17/24 History Ferrous Sulfate [Iron (65 MG 325 mg PO DAILY 02/09/24 02/17/24 History Elemental)] Atorvastatin [Lipitor] 80 mg PO HS #30 tab 02/13/24 02/17/24 Rx Nicotine 14Mg/24Hr Patch [Habitrol] 1 patch TRANSDERM DAILY #42 patch 02/13/24 02/17/24 Rx Sertraline [Zoloft] 100 mg PO DAILY #30 tab 02/13/24 02/17/24 Rx metroNIDAZOLE [Flagyl] 500 mg PO TID #90 tab 02/13/24 02/17/24 Rx Metoprolol Tartrate [Lopressor] 12.5 mg PO BID 02/17/24 02/17/24 History Allergies Allergy/AdvReac Type Severity Reaction Status Date / Time hydrocodone Allergy hives, Verified 02/17/24 14:07 nausea and vomiting ketorolac [From Toradol] Allergy Abdominal Verified 02/17/24 14:07 Pain mirtazapine [From Remeron] Allergy Abdominal Verified 02/17/24 14:07 Pain pioglitazone [From Actos] Allergy Abdominal Verified 02/17/24 14:07 Pain acetaminophen AdvReac Nausea & Verified 02/17/24 14:07 [From Tylenol-Codeine #3] Vomiting codeine AdvReac Nausea & Verified 02/17/24 14:07 [From Tylenol-Codeine #3] Vomiting Physical Exam Vitals: Vital Signs Temp Pulse Pulse Resp BP BP Pulse Ox 02/19/24 15:52 74 02/19/24 15:51 91 L 02/19/24 15:49 70 18 141/68 89 L 02/19/24 15:40 72 02/19/24 11:31 74 02/19/24 11:22 83 16 121/61 90 L 02/19/24 10:12 16 92 L 02/19/24 08:24 72 02/19/24 08:15 70 02/19/24 08:06 74 93 L 02/19/24 07:39 90 L 02/19/24 07:37 73 16 125/70 85 L 02/19/24 05:21 72 02/19/24 05:11 69 02/19/24 04:00 98.1 F 64 20 119/68 95 02/19/24 01:57 72 20 02/19/24 00:17 74 02/19/24 00:09 61 02/19/24 00:00 98.3 F 73 20 108/63 94 L 02/18/24 21:11 98.2 F 74 19 142/74 95 02/18/24 20:50 80 02/18/24 20:36 72 02/18/24 20:35 72 02/18/24 20:25 67 02/18/24 20:00 98.3 F 77 18 118/78 95 02/18/24 19:53 98.2 F 72 20 140/72 94 L Intake and Output 02/19/24 02/19/24 02/19/24 06:59 14:59 22:59 Intake Total 480 1203.125 Output Total 400 Balance 80 1203.125 Intake: Intake, IV Titration 123.125 Amount Heparin Sod,Pork in 0.45% 123.125 NaCl 25,000 unit In 0.45 % NaCl 1 250ml.bag @ 12 UNITS/KG/HR 9.798 mls/hr IV .Q24H [facility] Rx#: [id number] Oral 480 1080 Output: Urine 400 Other: Voiding Method Urinal # Voids 1 Weight 77.8 kg Results CBC & Chem 7: 02/19/24 06:27 02/20/24 10:35 Labs: Abnormal Lab Results - Last 24 Hours (Table) 02/18/24 02/18/24 02/18/24 Range/Units 06:05 12:03 16:50 WBC (3.8-10.6) k/uL RBC (4.30-5.90) m/uL Hgb (13.0-17.5) gm/dL Hct (39.0-53.0) % Neutrophils # (1.3-7.7) k/uL Lymphocytes # (1.0-4.8) k/uL APTT (22.0-30.0) sec POC Glucose (mg/dL) 251 H (70-110) mg/dL Triglycerides 226.00 H (0.00-149.00) mg/dL VLDL Cholesterol, Calc 45.20 H (5.00-40.00) mg/dL HDL Cholesterol 20.90 L (40.00-60.00) mg/dL Procalcitonin 0.14 H (0.02-0.09) ng/mL 02/18/24 02/19/24 02/19/24 Range/Units 20:17 03:06 06:27 WBC 11.4 H (3.8-10.6) k/uL RBC 3.46 L (4.30-5.90) m/uL Hgb 10.5 L (13.0-17.5) gm/dL Hct 32.3 L (39.0-53.0) % Neutrophils # 10.1 H (1.3-7.7) k/uL Lymphocytes # 0.7 L (1.0-4.8) k/uL APTT 36.9 H (22.0-30.0) sec POC Glucose (mg/dL) 203 H (70-110) mg/dL Triglycerides (0.00-149.00) mg/dL VLDL Cholesterol, Calc (5.00-40.00) mg/dL HDL Cholesterol (40.00-60.00) mg/dL Procalcitonin (0.02-0.09) ng/mL 02/19/24 Range/Units 06:32 WBC (3.8-10.6) k/uL RBC (4.30-5.90) m/uL Hgb (13.0-17.5) gm/dL Hct (39.0-53.0) % Neutrophils # (1.3-7.7) k/uL Lymphocytes # (1.0-4.8) k/uL APTT (22.0-30.0) sec POC Glucose (mg/dL) 293 H (70-110) mg/dL Triglycerides (0.00-149.00) mg/dL VLDL Cholesterol, Calc (5.00-40.00) mg/dL HDL Cholesterol (40.00-60.00) mg/dL Procalcitonin (0.02-0.09) ng/mL Microbiology - Last 24 Hours (Table) 02/17/24 19:19 Blood Culture - Preliminary Blood 02/17/24 19:13 Blood Culture - Preliminary Blood Assessment and Plan Plan: 1patient presented to hospital with shortness of breath which is likely multifactorial possible cardiac etiology clinical suspicion low for pneumonia in this patient with a procalcitonin 0.14 only patient did not have any fever during this admission and white count is only 11.1. 2patient with recent diagnosis of left diabetic foot infection underlying osteomyelitis culture positive for multiple pathogen including MRSA and anaerobes. 3vancomycin pharmacy to dose target trough 15 and will add oral Flagyl local wound care to continue per podiatry. We will follow on clinical condition and cultures to further adjust medication if needed Thank you for this consultation we will follow the patient along with you Dictation was produced using [employer] dictation software. please excuse any grammatical, word or spelling errors. Time with Patient: Greater than 30
[2024-02-20] MEDS: BENZOCAINE/MENTHOL LOZENG 1 EACH LOZENGE MUCOUS MEM PRN (00:27)
[2024-02-20] MEDS: metroNIDAZOLE 500 MG TAB PO SCH (00:27)
[2024-02-20 06:32] LABS: Glucose,Whole Blood 238 mg/dL (70-110)
[2024-02-20] MEDS ORDERED: HEPARIN SODIUM,PORCINE 10,000 UNIT in SODIUM CHLORIDE 0.9% 1,000 ML IRRIGATION PRN (07:00)
[2024-02-20] MEDS ORDERED: HEPARIN SODIUM,PORCINE (1 ML) 2,500 UNIT in SODIUM CHLORIDE 0.9% 250 ML IRRIGATION PRN (07:00)
[2024-02-20] MEDS ORDERED: ALPRAZolam 0.25 MG TAB PO PRN (08:37)
[2024-02-20] MEDS ORDERED: ALPRAZolam 0.5 MG TAB PO PRN (08:37)
[2024-02-20] MEDS ORDERED: NITROGLYCERIN SL TABS 0.4 MG TAB SUBLINGUAL PRN (08:37)
[2024-02-20] MEDS: CEFDINIR 300 MG CAP PO SCH (09:25)
[2024-02-20] MEDS: ASPIRIN 325 MG TAB PO STA (09:25)
[2024-02-20] MEDS: ATORVASTATIN 80 MG TAB PO STA (09:25)
[2024-02-20] MEDS: SODIUM CHLORIDE 0.9% 1,000 ML IV SCH (09:55)
[2024-02-20 11:45] LABS: Glucose,Whole Blood 168 mg/dL (70-110)
[2024-02-20 12:12] LABS: African American GFR (CKD) >90 (>60 ml/min/1.73 sqM); Anion Gap 6 mmol/L; Blood Urea Nitrogen 17 mg/dL (9-20); Calcium 8.9 mg/dL (8.4-10.2); Carbon Dioxide 25 mmol/L (22-30); Chloride 105 mmol/L (98-107); Glucose 143 mg/dL (74-99); Magnesium 1.9 mg/dL (1.6-2.3); Non-African American GFR(CKD) >90 (>60 ml/min/1.73 sqM); Potassium 4.1 mmol/L (3.5-5.1); Sodium 136 mmol/L (137-145)
[2024-02-20 12:59] VITALS: RESP 18
--- NOTE | 2024-02-20 13:31 | P.PN ---
Subjective Progress Note Date: 02/20/24 Reason for Consult (text): NSTEMI History of present illness: This is a 43-year-old male with past medical history of diabetes mellitus type 2, hypertension, asthma, osteomyelitis of the left foot fifth metatarsal. We have been asked to evaluate the patient for non-ST elevated ME. Patient initially presented to [facility]'s been diagnosed with pneumonia, PE was ruled out. Patient was transferred to [facility]. He currently denies having any chest pain. He states he has had shortness of breath for 3 days along with cough that is nonproductive. No fever or chills. He states he feels a little lightheaded, no syncopal episodes. Positive orthopnea. He is a smoker 1 pack/day and quit smoking 5 days ago. He denies any family medical history of coronary artery disease. EKG sinus mechanism with nonspecific changes and V1, V2, inferior leads, low voltage Chest x-ray: Worsening of the mid and lower lung airspace disease compared to 02/13/2024. Laboratory studies: Sodium 141, potassium 3.4, BUN 13 creatinine 0.52. Troponins 0.093, 0.113, 0.204. Home cardiac medications: Aspirin 81 mg daily, atorvastatin 80 mg at bedtime, fenofibrate 160 mg daily, ferrous sulfate 325 mg daily, lisinopril 20 mg daily, Lopressor 12.5 mg twice daily nicotine patch, Januvia 100 mg daily. 02/18 Patient is seen today in follow-up on the cardiac stepdown unit. He states he only has chest pain when he is coughing. His breathing status is improved. Noted to have no wheezing today. Nitropaste will be discontinued. Patient has gone from 12 L nasal cannula down to 2 L nasal cannula. Echocardiogram is pending. He is maintained on heparin drip with plan for total 48 hours. Discussed options of cardiac catheterization with the patient. We will follow- up again on this after echocardiogram is available. Blood pressure 121/61, heart rate 83, pulse ox 90% on 2 L nasal cannula. Repeat blood work reveals WBC 11.4, hemoglobin 10.5. BNP 1500. 02/19 Patient denies having any chest pain or shortness of breath. He is now on room air pulse oxing 94%. Lungs are clear to auscultation. Heart rate is running in the 70s and 80s, blood pressure 136/71. Repeat blood work reveals sodium 136, potassium 4.1, creatinine 0.75. Magnesium 1.9. Discussed options for cardiac workup and patient is agreeable to move forward with cardiac catheterization today with Dr. Ellis. Heparin drip was discontinued yesterday. Echocardiogram reveals normal LV function. Physical examination: Gen: This is a 43-year-old male Appears to be in no acute distress VS: reviewed HEENT: Head is atraumatic, normocephalic. Pupils equal, round. Sclerae is anicteric. NECK: Supple. No JVD. LUNGS: Expiratory wheeze throughout, no intercostal retractions. HEART: Regular rate and rhythm. No murmur. ABDOMEN: Soft No tenderness. EXTREMITIES: No pedal edema. Dressing in place to the left foot. NEUROLOGICAL: Patient is awake, alert and oriented x3. Assessment: Acute hypoxic respiratory failure secondary to asthma exacerbation and possible component of heart failure Non-ST elevated myocardial infarction, rule out type I versus type II Asthma exacerbation Diabetes mellitus type 2, insulin requiring Hypertension Osteomyelitis of the left foot Plan: Continue current cardiac medications: Aspirin 81 mg daily, atorvastatin 80 mg daily, lisinopril 20 mg daily, metoprolol tartrate 12.5 mg twice daily Patient will be scheduled for cardiac catheterization today with Dr. Ellis Further recommendations to follow based upon clinical course Nurse practitioner note has been reviewed, I agree with documented findings and plan of care. Patient was seen and examined. Objective - Vital Signs Vital signs: Vital Signs Temp 98.0 F 02/20/24 03:50 Pulse 76 02/20/24 08:31 Resp 18 02/20/24 03:50 BP 138/69 02/20/24 03:50 Pulse Ox 94 L 02/20/24 08:31 FiO2 100 02/17/24 21:51 Intake & Output 02/19/24 02/20/24 02/20/24 18:59 06:59 18:59 Intake Total 1743.125 Balance 1743.125 Intake: Intake, IV Titration 123.125 Amount Heparin Sod,Pork in 0.45% 123.125 NaCl 25,000 unit In 0.45 % NaCl 1 250ml.bag @ 12 UNITS/KG/HR 9.798 mls/hr IV .Q24H [facility] Rx#: [id number] Oral 1620 Other: Voiding Method Urinal # Voids 1 2 - Labs CBC & Chem 7: 02/19/24 06:27 02/20/24 10:35 Labs: Abnormal Lab Results - Last 24 Hours (Table) 02/19/24 02/19/24 02/20/24 Range/Units 16:38 20:08 06:30 POC Glucose (mg/dL) 247 H 150 H 238 H (70-110) mg/dL Microbiology - Last 24 Hours (Table) 02/17/24 19:19 Blood Culture - Preliminary Blood 02/17/24 19:13 Blood Culture - Preliminary Blood
--- NOTE | 2024-02-20 13:45 | P.PN ---
Subjective Progress Note Date: 02/20/24 Principal diagnosis: Shortness of breath and cough. This is a 43-year-old male patient who has a history of diabetes mellitus, hypertension, hyperlipidemia, seizures, anxiety/depression, schizophrenia, panic disorder, chronic obstructive pulmonary disease with chronic and ongoing tobacco dependence. He was just discharged from here on 02/13/2024 for having ongoing issues with left foot pain and infection. He was found to have acute osteomyelitis of the left foot fifth metatarsal this is been an ongoing issue. He received 2 weeks of clindamycin in the outpatient setting. He recently presented to [facility] with increasing shortness of breath, cough and congestion. His O2 saturations were in the 70s. CT scan of the chest had revealed evidence of pneumonia and borderline troponin levels and he was sent to our emergency room for further evaluation and treatment. Chest x-ray reveals mid and lower lobe airspace disease which is worse compared to previous here 02/13/2024. Sodium 141. Potassium 3.4. Bicarb 26. BUN 13. Creatinine 0.52. Glucose 183. Troponin 0.093. proBNP 1500. He is seen today in consultation in the emergency department. He is currently sitting up on a stretcher. Awake and alert in no acute distress. He is quite hypoxemic requiring 15 L of high flow nasal cannula to maintain O2 saturations to high 80s low 90s. He has been initiated on a heparin drip. He is receiving bronchodilators. He was started on ceftriaxone and azithromycin. Progress note dated February 19, 2024. This is a 43-year-old male who we saw in the emergency department yesterday. He has a history of diabetes mellitus, hypertension, hyperlipidemia, seizure disorder, anxiety/depression, schizophrenia, panic disorder, and COPD from chronic and ongoing tobacco use. The patient came in with complaints of increasing shortness of breath, cough, wheezing, and chest tightness. He was placed on albuterol sulfate, ipratropium bromide, budesonide, formoterol, and Solu-Medrol. I am happy to report that he is feeling much better. He has been weaned down to 2 L of oxygen. We saw him in the emergency department yesterday, he was on 15 L high flow. He is receiving saline at 20 cc an hour. He is sitting up in bed, in no respiratory distress. Current labs include white count 11.4, hemoglobin 10.5, hematocrit 32.3, platelet count 229,000. Glucose is 96. Progress note dated February 20, 2024. 43-year-old male seen today in room 369. He is currently on room air. The patient's budesonide and formoterol will be changed to Symbicort. In addition, his Solu-Medrol will be changed to prednisone. The patient is apparently scheduled to have a cardiac catheterization today. From the breathing standpoint, he is doing much better. His breathing is much improved. He is not having much in the way of cough, wheezing, chest tightness, or shortness of breath. Current labs include sodium 136, potassium 4.1, chlorides 105, CO2 25, BUN 17 and creatinine 0.75. Glucose is 168. Calcium 8.9, magnesium 1.9. Blood cultures are negative. Patient is currently on vancomycin, Flagyl, and Omnicef. Objective - Vital Signs Vital signs: Vital Signs Temp 98.0 F 02/20/24 08:10 Pulse 79 02/20/24 12:00 Resp 18 02/20/24 12:00 BP 136/71 02/20/24 12:00 Pulse Ox 92 L 02/20/24 12:00 FiO2 100 02/17/24 21:51 Intake & Output 02/19/24 02/20/24 02/20/24 18:59 06:59 18:59 Intake Total 1743.125 358 Output Total 551 Balance 1743.125 -193 Intake: Intake, IV Titration 123.125 Amount Heparin Sod,Pork in 0.45% 123.125 NaCl 25,000 unit In 0.45 % NaCl 1 250ml.bag @ 12 UNITS/KG/HR 9.798 mls/hr IV .Q24H [facility] Rx#: [id number] Oral 1620 358 Output: Urine 550 Stool 1 Other: Voiding Method Urinal Urinal # Voids 1 2 - Exam No acute distress, oriented 3. Currently on room air. Saturations are 92%. HEENT examination is grossly unremarkable. Mucous membranes are moist. No oral lesions. Neck supple. Full range of motion. No adenopathy thyromegaly or neck vein distention. Cardiovascular examination reveals regular rhythm rate. S1-S2 normal. No S3 or S4. No discernible murmur noted. Heart sounds are distant. Heart rate 29 bpm. Lungs reveal scattered bilateral rhonchi and wheezes. Breath sounds are equal bilaterally. Breath sounds are diminished throughout. No crackles. Slight prolongation on forced maneuver. Abdomen soft bowel sounds are heard. No masses or tenderness. Extremities are intact. No cyanosis clubbing or edema. Skin is without rash or lesion. Neurologic examination is brief but nonfocal. - Labs CBC & Chem 7: 02/19/24 06:27 02/20/24 10:35 Labs: Abnormal Lab Results - Last 24 Hours (Table) 02/19/24 02/19/24 02/20/24 Range/Units 16:38 20:08 06:30 Sodium (137-145) mmol/L Glucose (74-99) mg/dL POC Glucose (mg/dL) 247 H 150 H 238 H (70-110) mg/dL 02/20/24 02/20/24 Range/Units 10:35 11:44 Sodium 136 L (137-145) mmol/L Glucose 143 H (74-99) mg/dL POC Glucose (mg/dL) 168 H (70-110) mg/dL Microbiology - Last 24 Hours (Table) 02/17/24 19:19 Blood Culture - Preliminary Blood 02/17/24 19:13 Blood Culture - Preliminary Blood Assessment and Plan Assessment: Acute hypoxemic respiratory failure secondary to an acute community-acquired versus healthcare acquired pneumonia. Acute exacerbation of chronic obstructive pulmonary disease. Recent admission for osteomyelitis of the left foot and fifth metatarsal. Chronic and ongoing tobacco dependence. Diabetes mellitus. Hypertension. History of hyperlipidemia. History of seizure disorder. History of anxiety/depression. History of bipolar disorder, schizophrenia. Plan: Plan dated February 19, 2024. The patient is doing much better. The patient continues on breathing treatments, and corticosteroids. Labs, x-rays, and medications are reviewed. The patient is counseled about the importance of smoking cessation. The procalcitonin level was mildly elevated at 0.14. We will continue to follow the patient, make recommendations along the way. Labs, x-rays, and all medications are reviewed. The patient is feeling much better. Plan dated February 20, 2024. The patient is seen today in room 369. The patient is doing much better. His breathing is much improved. He is on room air. Saturations are in the low to mid 90s. He is scheduled for cardiac catheterization today. The infectious disease doctor has made recommendations in regards to antibiotics. His Solu- Medrol will be changed to prednisone. He has budesonide and formoterol, will be switched to Symbicort. He is doing much better. We will continue to follow make recommendations. Prognosis is guarded. Labs, x-rays, and all medications are reviewed. Time with Patient: Less than 30
--- NOTE | 2024-02-20 15:22 | P.PN ---
Subjective Progress Note Date: 02/20/24 Principal diagnosis: Reason for follow-up is a left foot osteomyelitis MRSA Patient is a 43-year-old male with a past medical history significant for diabetes mellitus hypertension hyperlipidemia seizure disorder with recent admission to the hospital has been diagnosed with the left diabetic foot infection with underlying osteomyelitis culture positive for MRSA, Stap hylococcus Lugdunenisis along with finegoldia Magna and the patient was getting outpatient IV vancomycin and oral Flagyl, patient present to hospital with increasing shortness of breath CT apparently negative for PE did have elevated troponin. On today's evaluation that is 02/20/2024, patient has been afebrile, patient is breathing comfortably and is currently on room air, patient denies having any significant cough no chest pain , patient denies nausea vomiting or diarrhea and no abdominal pain, patient has pain to the left foot wound area. Patient creatinine 0.75 blood culture this admission has been negative so far Objective - Vital Signs Vital signs: Vital Signs Temp 98.0 F 02/20/24 08:10 Pulse 80 02/20/24 11:56 Resp 16 02/20/24 08:10 BP 151/57 02/20/24 08:10 Pulse Ox 94 L 02/20/24 08:31 FiO2 100 02/17/24 21:51 Intake & Output 02/19/24 02/20/24 02/20/24 18:59 06:59 18:59 Intake Total 1743.125 358 Output Total 1 Balance 1743.125 357 Intake: Intake, IV Titration 123.125 Amount Heparin Sod,Pork in 0.45% 123.125 NaCl 25,000 unit In 0.45 % NaCl 1 250ml.bag @ 12 UNITS/KG/HR 9.798 mls/hr IV .Q24H [facility] Rx#: [id number] Oral 1620 358 Output: Stool 1 Other: Voiding Method Urinal Urinal # Voids 1 2 - Exam GENERAL DESCRIPTION: Middle-age male lying in bed in no distress RESPIRATORY SYSTEM: Unlabored breathing , decreased breath sounds at bases HEART: S1 S2 regular rate and rhythm , ABDOMEN: Soft , no tenderness EXTREMITIES: Left foot is currently dressed - Labs CBC & Chem 7: 02/19/24 06:27 02/20/24 10:35 Labs: Abnormal Lab Results - Last 24 Hours (Table) 02/19/24 02/19/2424 Range/Units 16:38 20:08 06:30 Sodium (137-145) mmol/L Glucose (74-99) mg/dL POC Glucose (mg/dL) 247 H 150 H 238 H (70-110) mg/dL 02/20/24 02/20/24 Range/Units 10:35 11:44 Sodium 136 L (137-145) mmol/L Glucose 143 H (74-99) mg/dL POC Glucose (mg/dL) 168 H (70-110) mg/dL Microbiology - Last 24 Hours (Table) 02/17/24 19:19 Blood Culture - Preliminary Blood 02/17/24 19:13 Blood Culture - Preliminary Blood Assessment and Plan (1) MRSA (methicillin resistant Staphylococcus aureus) infection Current Visit: Yes Status: Acute Code(s): A49.02 - METHICILLIN RESIS STAPH INFECTION, UNSP SITE SNOMED Code(s): 954723813 (2) Foot osteomyelitis, left Current Visit: No Status: Acute Code(s): M86.9 - OSTEOMYELITIS, UNSPECIFIED SNOMED Code(s): 8624605780478463 Plan: 1patient presented to hospital with shortness of breath which is likely multifactorial possible cardiac etiology clinical suspicion low for pneumonia in this patient with a procalcitonin 0.14 only patient did not have any fever during this admission and white count is only 11.1. 2patient with recent diagnosis of left diabetic foot infection underlying osteomyelitis culture positive for multiple pathogen including MRSA and anaerobes. 3patient to continue with vancomycin pharmacy to dose target trough 15 and oral Flagyl local wound care to continue per podiatry. Prescription provided to the mattress spring encaser Dictation was produced using [employer] dictation software. please excuse any grammatical, word or spelling errors. Time with Patient: Less than 30
[2024-02-20 16:54] LABS: Glucose,Whole Blood 220 mg/dL (70-110)
--- NOTE | 2024-02-20 18:47 | P.PN ---
Progress Note - Text Progress Note Date: 02/20/24 Chief Complaint: Short of breath This is a pleasant 43-year-old patient who follows with Dr. Prasad Matthews. Chronic stable medical condition include COPD, diabetes, GERD, hyperlipidemia, essential hypertension, grand mal seizure several years ago, hemorrhoids, psoriasis, previous TIA with no residual. 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 Bipolar. Patient was just in the hospital from February 08 through February 12: Had undergone t surgery on the left foot and some bone was taken off. unclear as to the reason for the same. This was done by physician out of the area. Surgery was done in January 04. About 3 weeks ago patient developed a wound in that area. He did go down to [facility] where he finished 2 weeks of clindamycin about a week ago. Patient now for the last 5 days having increasing pain swelling tenderness at that area. Finally decided to come in. In the ER was started on vancomycin. Patient is a longstanding smoker denies any obvious fever and chills. No change in bowel pattern. Decreased appetite. February 09 patient underwent surgery of the left foot by Dr. Pereyra. Pus was obtained. It was felt that patient's left metatarsal need to be removed. Down the road he was discharged on IV antibiotic and PICC line Patient presented to [facility] he was sent here because of slightly elevated troponin. Having trouble breathing. Pulse ox in the 70s. He did smoke the day after he left and stopped. CT scan done that showed some pneumonia but no PE. Troponin was 0.067. Patient's had a cough. Very little sputum. Specks of blood. No fever no chills. Decreased appetite. February 18: Patient initially was on 15 L of high flow oxygen when he first presented. Now down to 2 L this morning. Breathing better. Eating about 50%. Patient seen by Dr. Pereyra from podiatry. She did some resection of the hyperkeratotic tissue foot size. The patient is to follow-up with her at [facility] wound center next week. IV vancomycin for left foot and stomatitis.-ID consulted February 19: Laying in bed. Comfortable. Scheduled for cardiac catheterization later today. Breathing much better. Change Solu-Medrol to 40 mg IV every 12. Discussed with patient. N.p.o. Daily that Active Medications Albuterol/Ipratropium (Ipratropium-Albuterol 3 Ml Neb) 3 ml INHALATION RT-Q2H PRN PRN Reason: Shortness Of Breath Or Wheezing Last Admin: 02/18/24 08:49 Dose: 3 ml Albuterol/Ipratropium (Ipratropium-Albuterol 3 Ml Neb) 3 ml INHALATION RT-Q4H MARYELLEN Last Admin: 02/20/24 15:36 Dose: 3 ml Alprazolam (Alprazolam 0.25 Mg Tab) 0.25 mg PO Q6HR PRN PRN Reason: Mild Anxiety Alprazolam (Alprazolam 0.5 Mg Tab) 0.5 mg PO Q6HR PRN PRN Reason: Moderate Anxiety Aspirin (Aspirin 81 Mg) 81 mg PO DAILY [facility] Last Admin: 02/20/24 09:21 Dose: Not Given Atorvastatin Calcium (Atorvastatin 80 Mg Tab) 80 mg PO HS [facility] Last Admin: 02/20/24 16:30 Dose: Not Given Benzocaine/Menthol (Benzocaine/Menthol Lozeng 1 Each Lozenge) 1 each MUCOUS MEM Q4HR PRN PRN Reason: Cough Last Admin: 02/20/24 00:27 Dose: 1 each Budesonide/Formoterol Fumarate (Symbicort 160-4.5 Mcg Inhaler) 2 puff INHALATION RT-BID [facility] Cefdinir (Cefdinir 300 Mg Cap) 300 mg PO BID [facility]; Protocol Last Admin: 02/20/24 09:25 Dose: 300 mg Collagenase (Collagenase 250 Unit/Gm Ointment 30 Gm Tube) 1 applic TOPICAL DAILY [facility]; Protocol Last Admin: 02/20/24 10:09 Dose: 1 applic Dextrose/Water (Dextrose 50% Syringe 50 Ml) 25 ml IVP PER PROTOCOL PRN; Protocol PRN Reason: Hypoglycemia Dextrose/Water (Dextrose 50% Syringe 50 Ml) 50 ml IVP PER PROTOCOL PRN; Protocol PRN Reason: Hypoglycemia Famotidine (Famotidine 20 Mg Tab) 40 mg PO BID [facility] Last Admin: 02/20/24 09:25 Dose: 40 mg Fenofibrate (Fenofibrate 160 Mg Tab) 160 mg PO DAILY [facility] Last Admin: 02/20/24 09:24 Dose: 160 mg Ferrous Sulfate (Ferrous Sulfate 325 Mg Tab) 325 mg PO DAILY [facility] Last Admin: 02/20/24 09:24 Dose: 325 mg Gabapentin (Gabapentin 400 Mg Cap) 400 mg PO TID [facility] Last Admin: 02/20/24 16:05 Dose: 400 mg Haloperidol Decanoate (Haloperidol Decanoate 100 Mg/Ml 1 Ml Vial) 200 mg IM Q21D [facility] Vancomycin HCl 1,500 mg/ (Sodium Chloride) 500 mls @ 167 mls/hr IVPB Q8H [facility] Last Admin: 02/20/24 17:13 Dose: 167 mls/hr Heparin Sodium (Porcine) 10, (000 unit/ Sodium Chloride) 1,001 mls @ 999 mls/hr IRRIGATION ONCE PRN PRN Reason: INTRA-OP Stop: 02/20/24 23:00 Heparin Sodium (Porcine) 2,500 (unit/ Sodium Chloride) 250.5 mls @ 250 mls/hr IRRIGATION ONCE PRN PRN Reason: INTRA-OP Stop: 02/20/24 23:00 Sodium Chloride (Saline 0.9%) 1,000 mls @ 75 mls/hr IV .[id number] [facility] Last Admin: 02/20/24 09:55 Dose: 75 mls/hr Ibuprofen (Ibuprofen 400 Mg Tab) 400 mg PO Q8HR PRN PRN Reason: Pain Insulin Aspart (Insulin Aspart (Novolog) 100 Unit/Ml Vial) 0 unit SQ ACHS [facility]; Protocol Last Admin: 02/20/24 17:14 Dose: 2 unit Insulin Aspart (Insuln Asp Prt/Insulin Aspart 100 Unit/Ml 10 Ml Vial) 18 unit SQ W/SUPPER [facility] Last Admin: 02/20/24 17:14 Dose: 18 unit Insulin Aspart (Insuln Asp Prt/Insulin Aspart 100 Unit/Ml 10 Ml Vial) 33 unit SQ W/BRKFST [facility] Last Admin: 02/20/24 06:43 Dose: 33 unit Lamotrigine (Lamotrigine 25 Mg Tab) 75 mg PO BID [facility] Last Admin: 02/20/24 09:25 Dose: 75 mg Lamotrigine (Lamotrigine 100 Mg Tab) 200 mg PO BID [facility] Last Admin: 02/20/24 09:24 Dose: 200 mg Levothyroxine Sodium (Levothyroxine 50 Mcg Tab) 50 mcg PO DAILY@0630 [facility] Last Admin: 02/20/24 06:43 Dose: 50 mcg Linagliptin (Linagliptin 5 Mg Tablet) 5 mg PO DAILY [facility] Last Admin: 02/20/24 14:48 Dose: Not Given Lisinopril (Lisinopril 20 Mg Tab) 20 mg PO DAILY [facility] Last Admin: 02/20/24 09:25 Dose: 20 mg Metformin HCl (Metformin 500 Mg Tab) 1,000 mg PO BID-W/MEALS [facility] Last Admin: 02/20/24 17:12 Dose: Not Given Methylprednisolone Sodium Succinate (Methylprednisolone Sod Succi 125 Mg/2 Ml Vial) 60 mg IV Q6HR [facility] Last Admin: 02/20/24 17:13 Dose: 60 mg Metoprolol Tartrate (Metoprolol Tartrate 12.5 Mg Tab) 12.5 mg PO BID [facility] Last Admin: 02/20/24 09:24 Dose: 12.5 mg Metronidazole (Metronidazole 500 Mg Tab) 500 mg PO TID [facility]; Protocol Last Admin: 02/20/24 16:05 Dose: 500 mg Miscellaneous Information (Pneumonia Protocol Utilized 1 Each Misc) 1 each PO ONCE PRN PRN Reason: Per Protocol Miscellaneous Information (Potassium Replacement Protocol 1 Each Misc) 1 each MISCELLANE DAILY PRN; Protocol PRN Reason: Per Protocol Miscellaneous Information (Vancomycin Trough Due 1 Each Misc) 0 each MISCELLANE DIRECTED ONE Stop: 02/21/24 00:01 Nicotine (Nicotine 14mg/24hr Patch) 1 patch TRANSDERM DAILY [facility] Last Admin: 02/20/24 09:26 Dose: Not Given Nitroglycerin (Nitroglycerin Sl Tabs 0.4 Mg Tab) 0.4 mg SUBLINGUAL Q5M PRN PRN Reason: Chest Pain Non-Formulary Medication (Brivaracetam [Briviact]) 50 mg PO BID [facility] Last Admin: 02/20/24 14:48 Dose: Not Given Oxcarbazepine (Oxcarbazepine 150 Mg Tab) 150 mg PO BID [facility] Last Admin: 02/20/24 09:25 Dose: 150 mg Sertraline HCl (Sertraline 100 Mg Tab) 100 mg PO DAILY [facility] Last Admin: 02/20/24 09:24 Dose: 100 mg Sodium Chloride (Sodium Chloride 0.65% Nasal [place] 44 Ml Btl) 2 spray NASAL QID PRN PRN Reason: Dry Nasal Passages Last Admin: 02/18/24 19:34 Dose: 2 spray Tamsulosin HCl (Tamsulosin 0.4 Mg Cap.Er.24h) 0.4 mg PO [facility] Last Admin: 02/19/24 20:37 Dose: 0.4 mg Tizanidine HCl (Tizanidine 4 Mg Tab) 4 mg PO TID PRN PRN Reason: Pain Last Admin: 02/19/24 06:19 Dose: 4 mg Trazodone HCl (Trazodone Hcl 50 Mg Tab) 150 mg PO [facility] Last Admin: 02/19/24 20:36 Dose: 150 mg Social history: Patient lives with his parents. Smokes half a pack a day for last 30 years. CBD oil. Alcohol occasionally Physical examination: VITAL SIGNS: Afebrile, 80, 18, 134/74, 92% room air GENERAL: Comfort Jung EYES: Pupils equal. Conjunctiva chelsi l. HEENT: External appearance of nose and ears normal, oral cavity grossly normal. NECK: JVD not raised; masses not palpable. HEART: First and second heart sounds are normal; no edema. LUNGS: Respiratory rate increased l; decreased breath sounds, improved wheezing ABDOMEN: Soft, nontender, liver spleen not palpable, no masses palpable. PSYCH: [Alert and oriented x3; mood and affect. Anxious. MUSCULOSKELETAL:No Clubbing/cyanosis;muscles-grossly intact. Left foot: Wound INVESTIGATIONS, reviewed in the clinical context: February 19: Potassium 4.1 creatinine 0.75 February 19, 2024: White count 9.4 hemoglobin 10.5 platelets 229 February 18, 2024: Sodium 141 potassium 3.4 BUN 13 creatinine 0.52 blood glucose 183 Troponin I 0.093 proBNP 1500 Wound culture: MRSA, StaphylococcusL,Finegoldia M Blood culture: Pending February 11, 2024: White count 9.1 hemoglobin 12.5 platelets 195 potassium 4.6 creatinine 0.73 February 09, 2024: White count 8.8 hemoglobin 13.8 platelets 209 potassium 3.8. 5 creatinine 0.75 blood glucose 116 X-ray left foot complete: Soft tissue swelling throughout the foot. Fixation screws in the fourth metacarpal appear intact. Suspected fifth metacarpal base fracture remains present. Assessment plan: -Acute osteomyelitis of left foot fifth metatarsal Wound culture:MRSA, StaphylococcusL,Finegoldia M on February 09 -Acute left foot abscess/soft tissue infection, in the foot that underwent surgery on January 04. Initial indication for surgery unclear. Patient 3 weeks ago started having pain and swelling. Did receive clindamycin for 2 weeks, stopped a week ago. Last 5 days symptoms have been worsening.: Acute osteomyelitis of left fifth foot metatarsal bone February 09: Bedside De- kyra was done by Dr. Pereyra-pus was obtained. Liter: Incision and drainage with debridement of left foot ulcer. And bone biopsy of left fifth metatarsal done. Cultures-showing multiple organisms including MRSA Patient seen on this admission by Dr. Pereyra.-To follow-up at wound care center at [facility] -Pneumonia suspect gram-negative organism IV ceftriaxone given. Switch to Omnicef from tomorrow -Possible acute non-Q wave AL. IV heparin-discontinued. Aspirin Lopressor Cardiology following Scheduled for cardiac catheterization today -IV heparin monitoring-discontinued Follow PTT -Acute hypoxic respiratory failure from COPD exacerbation Patient requiring 15 L oxygen-on presentation -Chronic nicotine dependence cigarette smoker Nicotine patch -Acute COPD exacerbation in a current smoker DuoNeb every 4. IV Solu-Medrol -Diabetes mellitus type 1 on insulin Januvia. Glucophage. Insulin -Hyperlipidemia Lofibra -Hypothyroid Synthroid 50 mcg -Bipolar disorder Continue home medication for the same -Essential hypertension Lisinopril -Epilepsy/grand mal seizures. Last episode several years ago. Briviact. Trileptal -Full code Ending cardiac catheterization today. NPO. Changed to oral Omnicef for pneumonia today
[2024-02-20] MEDS: methylPREDNISolone SOD SUCCI 125 MG/2 ML VIAL IV SCH (19:01)
[2024-02-20] MEDS: IBUPROFEN 400 MG TAB PO PRN (19:04)
[2024-02-20] MEDS: HALOPERIDOL DECANOATE 100 MG/ML 1 ML VIAL IM SCH (20:38)
[2024-02-20 20:50] LABS: Glucose,Whole Blood 331 mg/dL (70-110)
[2024-02-20] MEDS: SYMBICORT 160-4.5 MCG INHALER INHALATION SCH (21:00)
[2024-02-21 06:08] LABS: Glucose,Whole Blood 207 mg/dL (70-110)
[2024-02-21 06:28] LABS: Glucose,Whole Blood 182 mg/dL (70-110)
[2024-02-21] MEDS: VANCOMYCIN TROUGH DUE 1 EACH MISC MISCELLANE ONE (07:55)
--- NOTE | 2024-02-21 09:27 | P.PN ---
Subjective Progress Note Date: 02/21/24 Principal diagnosis: Acute non-STEMI The patient is a pleasant 43-year-old gentleman with a past medical history significant for diabetes and hypertension and dyslipidemia and asthma who was admitted to the hospital with acute asthma exacerbation and was found to have abnormal cardiac enzymes. He was ruled in for acute non-ST elevation myocardial infarction February 21, 2024 The patient was seen and evaluated this morning. He is asymptomatic. He is feeling better. The plan is to pursue a heart catheterization to rule out severe CAD. The abnormal cardiac enzymes could be secondary to type I versus type II myocardial infarction. The examination is remarkable for stable vital signs with regular rate and rhythm and clear breathing sounds bilaterally and no edema was noted Assessment Acute non-ST ovation myocardial infarction Acute hypoxic respiratory failure Multiple comorbid conditions including diabetes Plan Continue the current medical regimen Proceed with coronary angiogram later on today Objective - Vital Signs Vital signs: Vital Signs Temp 98.0 F 02/21/24 03:44 Pulse 72 02/21/24 08:21 Resp 18 02/21/24 04:50 BP 143/78 02/21/24 03:44 Pulse Ox 92 L 02/21/24 03:44 FiO2 100 02/17/24 21:51 Intake & Output 02/20/24 02/21/24 02/21/24 18:59 06:59 18:59 Intake Total 358 Output Total 552 1200 Balance -194 -1200 Weight 79.3 kg Intake: Oral 358 Output: Urine 550 1200 Stool 2 Other: Voiding Method Urinal Urinal # Bowel Movements 0 - Labs CBC & Chem 7: 02/19/24 06:27 02/20/24 10:35 Labs: Abnormal Lab Results - Last 24 Hours (Table) 02/20/24 02/20/24 02/20/24 Range/Units 10:35 11:44 16:52 Sodium 136 L (137-145) mmol/L Glucose 143 H (74-99) mg/dL POC Glucose (mg/dL) 168 H 220 H (70-110) mg/dL 02/20/24 02/21/24 02/21/24 Range/Units 20:49 06:06 06:27 Sodium (137-145) mmol/L Glucose (74-99) mg/dL POC Glucose (mg/dL) 331 H 207 H 182 H (70-110) mg/dL Microbiology - Last 24 Hours (Table) 02/17/24 19:19 Blood Culture - Preliminary Blood 02/17/24 19:13 Blood Culture - Preliminary Blood
[2024-02-21 10:52] VITALS: TEMP 98.1
[2024-02-21] MEDS ORDERED: HEPARIN SODIUM 1,000 UN/ML (10ML VL) ONE (11:45)
[2024-02-21] MEDS ORDERED: ASPIRIN 325 MG TAB ONE (11:48)
[2024-02-21] MEDS: ASPIRIN 325 MG TAB PO ONE (12:06)
[2024-02-21] MEDS: SODIUM CHLORIDE 0.9% 1,000 ML IV ONE (12:06)
[2024-02-21] MEDS: MIDAZOLAM 2 MG/2 ML VIAL IVP ONE (12:15)
[2024-02-21] MEDS: LIDOCAINE 1% INJ 10MG/ML (20 ML MDV) SQ ONE (12:18)
[2024-02-21] MEDS: VERAPAMIL SYRINGE (5 MG/10 ML) INTRAARTER ONE (12:18)
[2024-02-21] MEDS: HEPARIN SODIUM 1,000 UN/ML (10ML VL) IVP ONE (12:23)
[2024-02-21] MEDS: IOPAMIDOL-370 200ML BTL INJ ONE (12:27)
[2024-02-21] MEDS ORDERED: RX INFO: IV CONTRAST WAS GIVEN 1 EACH MISC MISCELLANE PRN (12:29)
--- NOTE | 2024-02-21 12:31 | P.PCN ---
Date of Procedure: 02/21/24 Operative Findings: CARDIAC CATHETERIZATION PERFORMING PHYSICIAN: Armin Ellis MD, RPVI PROCEDURE PERFORMED: 1. Selective right and left coronary angiogram 2. Left heart catheterization 3. Ultrasound-guided access of the right radial artery INDICATION: Acute non-ST elevation myocardial infarction COMPLICATION: None APPROACH: Right radial artery LEVEL OF SEDATION: Moderate with a sedation length of 10 minutes PROCEDURE DESCRIPTION: After obtaining an informed consent, the patient was brought to cardiac analytical lab technician. Local anesthesia was performed using lidocaine subcutaneously. The right radial artery was cannulated using Seldinger technique, the guidewire passed easily, following that we advanced a 5-Bruneian sheath dilator assembly, the wire and dilator were removed and sheath was flushed. Following that, 2 mg of verapamil along with 5000 unit heparin were given. Selective right and left coronary angiogram using a 6-Bruneian JR4 and JL 3.5 catheters. Following that we did left heart catheterization using 6-Bruneian pigtail catheter. The procedure was completed there was no complication. SELECTIVE CORONARY ANGIOGRAM: The right coronary artery: Large-caliber vessel and a dominant vessel with mild to moderate disease involving the midportion Left main: Is angiographically normal The left circumflex: Large-caliber vessel nondominant vessel with mild to moderate disease involving the mid to distal portion The left anterior descending artery: Large-caliber vessel with mild to moderate disease involving the midportion by the bifurcation of a diagonal branch HEMODYNAMICS: The LVEDP was 13 mmHg with no gradient was identified across aortic valve CONCLUSION: 1. Mild to moderate triple-vessel CAD 2. Normal left-sided filling pressure POSTPROCEDURE MANAGEMENT: Medical treatment
[2024-02-21 12:49] LABS: Glucose,Whole Blood 228 mg/dL (70-110)
--- NOTE | 2024-02-21 13:28 | P.PN ---
Subjective Progress Note Date: 02/21/24 This is a 43-year-old male patient who has a history of diabetes mellitus, hypertension, hyperlipidemia, seizures, anxiety/depression, schizophrenia, panic disorder, chronic obstructive pulmonary disease with chronic and ongoing tobacco dependence. He was just discharged from here on 02/13/2024 for having ongoing issues with left foot pain and infection. He was found to have acute osteomyelitis of the left foot fifth metatarsal this is been an ongoing issue. He received 2 weeks of clindamycin in the outpatient setting. He recently presented to [facility] with increasing shortness of breath, cough and congestion. His O2 saturations were in the 70s. CT scan of the chest had revealed evidence of pneumonia and borderline troponin levels and he was sent to our emergency room for further evaluation and treatment. Chest x-ray reveals mid and lower lobe airspace disease which is worse compared to previous here 02/13/2024. Sodium 141. Potassium 3.4. Bicarb 26. BUN 13. Creatinine 0.52. Glucose 183. Troponin 0.093. proBNP 1500. He is seen today in consultation in the emergency department. He is currently sitting up on a stretcher. Awake and alert in no acute distress. He is quite hypoxemic requiring 15 L of high flow nasal cannula to maintain O2 saturations to high 80s low 90s. He has been initiated on a heparin drip. He is receiving bronchodilators. He was started on ceftriaxone and azithromycin. Progress note dated February 19, 2024. This is a 43-year-old male who we saw in the emergency department yesterday. He has a history of diabetes mellitus, hypertension, hyperlipidemia, seizure disorder, anxiety/depression, schizophrenia, panic disorder, and COPD from chronic and ongoing tobacco use. The patient came in with complaints of increasing shortness of breath, cough, wheezing, and chest tightness. He was placed on albuterol sulfate, ipratropium bromide, budesonide, formoterol, and Solu-Medrol. I am happy to report that he is feeling much better. He has been weaned down to 2 L of oxygen. We saw him in the emergency department yesterday, he was on 15 L high flow. He is receiving saline at 20 cc an hour. He is sitting up in bed, in no respiratory distress. Current labs include white count 11.4, hemoglobin 10.5, hematocrit 32.3, platelet count 229,000. Glucose is 96. Progress note dated February 20, 2024. 43-year-old male seen today in room 369. He is currently on room air. The patient's budesonide and formoterol will be changed to Symbicort. In addition, his Solu-Medrol will be changed to prednisone. The patient is apparently schedu led to have a cardiac catheterization today. From the breathing standpoint, he is doing much better. His breathing is much improved. He is not having much in the way of cough, wheezing, chest tightness, or shortness of breath. Current labs include sodium 136, potassium 4.1, chlorides 105, CO2 25, BUN 17 and creatinine 0.75. Glucose is 168. Calcium 8.9, magnesium 1.9. Blood cultures are negative. Patient is currently on vancomycin, Flagyl, and Omnicef. The patient is seen today February 21, 2024 in follow-up on the selective care unit. He is currently sitting up in bed. Awake and alert in no acute distress. Maintaining O2 saturations in the 90s on room air. Afebrile. Hemodynamically stable. Plan is for cardiac catheterization today. Blood cultures revealed no growth. Glucose 228. Vancomycin trough 15.7. He remains on DuoNeb inhalations, Symbicort, Solu-Medrol. NicoDerm patch in place. Remains on vancomycin, Omnicef and Flagyl. Infectious diseases following. Objective - Vital Signs Vital signs: Vital Signs Temp 98.1 F 02/21/24 08:00 Pulse 71 02/21/24 12:40 Resp 18 02/21/24 08:00 BP 130/76 02/21/24 12:40 Pulse Ox 90 L 02/21/24 12:40 FiO2 100 02/17/24 21:51 Intake & Output 02/20/24 02/21/24 02/21/24 18:59 06:59 18:59 Intake Total 358 50 Output Total 552 1200 300 Balance -194 -1200 -250 Weight 79.3 kg Intake: IV 50 Oral 358 Output: Urine 550 1200 300 Stool 2 Other: Voiding Method Urinal Urinal Urinal # Bowel Movements 0 - Exam A 43-year-old male patient resting in bed. No acute distress, oriented 3. Currently on room air. HEENT examination is grossly unremarkable. Mucous membranes are moist. No oral lesions. Neck supple. Full range of motion. No adenopathy thyromegaly or neck vein distention. Cardiovascular examination reveals regular rhythm rate. S1-S2 normal. No S3 or S4. No discernible murmur noted. Heart sounds are distant. Lungs reveal scattered bilateral rhonchi and wheezes. Breath sounds are equal bilaterally. Breath sounds are diminished throughout. No crackles. Abdomen soft bowel sounds are heard. No masses or tenderness. Extremities are intact. No cyanosis clubbing or edema. Skin is without rash or lesion. Neurologic examination is brief but nonfocal. - Labs CBC & Chem 7: 02/19/24 06:27 02/20/24 10:35 Labs: Abnormal Lab Results - Last 24 Hours (Table) 02/20/24 02/20/24 02/21/24 Range/Units 16:52 20:49 06:06 POC Glucose (mg/dL) 220 H 331 H 207 H (70-110) mg/dL 02/21/24 02/21/24 Range/Units 06:27 12:47 POC Glucose (mg/dL) 182 H 228 H (70-110) mg/dL Microbiology - Last 24 Hours (Table) 02/17/24 19:19 Blood Culture - Preliminary Blood 02/17/24 19:13 Blood Culture - Preliminary Blood Assessment and Plan Assessment: Acute hypoxemic respiratory failure secondary to an acute community-acquired versus healthcare acquired pneumonia Acute exacerbation of chronic obstructive pulmonary disease secondary to above Acute non-ST elevation myocardial infarction, plan is for cardiac catheterization today Recent admission for osteomyelitis of the left foot and fifth metatarsal Chronic and ongoing tobacco dependence Diabetes mellitus Hypertension Hyperlipidemia History of seizure disorder History of anxiety/depression History of bipolar disorder, schizophrenia Plan: The patient was seen and evaluated Chest x-ray, labs and medications reviewed Currently stable and on room air Plan is for cardiac catheterization today Antibiotics per ID services Again educated regarding smoking cessation NicoDerm patch in place We will continue to follow I have personally seen and examined the patient, performed the documentation and the assessment and plan as written. Number of minutes spent on the visit: 10.
[2024-02-21 16:17] LABS: Glucose,Whole Blood 203 mg/dL (70-110)
[2024-02-21] MEDS: SODIUM CHLORIDE 0.9% 1,000 ML IV SCH (17:24)
[2024-02-21 17:42] VITALS: BP 169/83; PULSE 69
--- NOTE | 2024-02-21 21:16 | P.DS ---
Providers Date of admission: 02/17/24 18:56 Expected date of discharge: 02/21/24 Attending physician: Farooq Pantoja Consults: 02/17/24 18:55 Consult Physician Routine Consulting Provider: [facility] Consult Reason/Comments: Non-STEMI Do you want consulting provider notified?: Yes 02/18/24 06:39 Consult Physician Routine Consulting Provider: Reynold Nye Consult Reason/Comments: PNA, high flow O2 Do you want consulting provider notified?: Yes, Notify in am 02/18/24 08:42 Consult Physician Routine Consulting Provider: Latha Shields Consult Reason/Comments: Left foot, known to patient Do you want consulting provider notified?: Yes 02/19/24 16:12 Consult Physician Routine Consulting Provider: Carlos Rivera Consult Reason/Comments: Continue vancomycin for osteomyelitis Do you want consulting provider notified?: Yes [facility] [place] [facility] Course: Chief Complaint: Short of breath This is a pleasant 43-year-old patient who follows with Dr. Prasad Matthews. Chronic stable medical condition include COPD, diabetes, GERD, hyperlipidemia, essential hypertension, grand mal seizure several years ago, hemorrhoids, psoriasis, previous TIA with no residual. 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 Bipolar. Patient was just in the hospital from February 08 through February 12: Had undergone t surgery on the left foot and some bone was taken off. unclear as to the reason for the same. This was done by physician out of the area. Surgery was done in January 04. About 3 weeks ago patient developed a wound in that area. He did go down to [facility] where he finished 2 weeks of clindamycin about a week ago. Patient now for the last 5 days having increasing pain swelling tenderness at that area. Finally decided to come in. In the ER was started on vancomycin. Patient is a longstanding smoker denies any obvious fever and chills. No change in bowel pattern. Decreased appetite. February 09 patient underwent surgery of the left foot by Dr. Shields. Pus was obtained. It was felt that patient's left metatarsal need to be removed. Down the road he was discharged on IV antibiotic and PICC line Patient presented to [facility] he was sent here because of slightly elevated troponin. Having trouble breathing. Pulse ox in the 70s. He did smoke the day after he left and stopped. CT scan done that showed some pneumonia but no PE. Troponin was 0.067. Patient's had a cough. Very little sputum. Specks of blood. No fever no chills. Decreased appetite. February 18: Patient initially was on 15 L of high flow oxygen when he first presented. Now down to 2 L this morning. Breathing better. Eating about 50%. Patient seen by Dr. Shields from podiatry. She did some resection of the hyperkeratotic tissue foot size. The patient is to follow-up with her at [facility] wound center next week. IV vancomycin for left foot and stomatitis.-ID consulted February 19: Laying in bed. Comfortable. Scheduled for cardiac catheterization later today. Breathing much better. Change Solu-Medrol to 40 mg IV every 12. Discussed with patient. N.p.o. February 20: Patient this morning underwent cardiac catheterization by Dr. Ellis. Mild to moderate triple-vessel CAD. Medical management. Patient doing well. Cleared by consultants for discharge. Discussed with patient. Denies any cardiac or pulmonary symptoms of significance currently. Discussion and discharge planning more than 35 minutes Social history: Patient lives with his parents. Smokes half a pack a day for last 30 years. CBD oil. Alcohol occasionally Physical examination: VITAL SIGNS: Afebrile, 86, 137 x 64, 91% room air GENERAL: In bed comfortable EYES: Pupils equal. Conjunctiva chelsi l. HEENT: External appearance of nose and ears normal, oral cavity grossly normal. NECK: JVD not raised; masses not palpable. HEART: First and second heart sounds are normal; no edema. LUNGS: Respiratory rate increased l; decreased breath sounds, improved wheezing ABDOMEN: Soft, nontender, liver spleen not palpable, no masses palpable. PSYCH: [Alert and oriented x3; mood and affect. Anxious. MUSCULOSKELETAL:No Clubbing/cyanosis;muscles-grossly intact. Left foot: Wound INVESTIGATIONS, reviewed in the clinical context: February 19: Potassium 4.1 creatinine 0.75 February 19, 2024: White count 9.4 hemoglobin 10.5 platelets 229 February 18, 2024: Sodium 141 potassium 3.4 BUN 13 creatinine 0.52 blood glucose 183 Troponin I 0.093 proBNP 1500 Wound culture: MRSA, StaphylococcusL,Finegoldia M Blood culture: Pending February 11, 2024: White count 9.1 hemoglobin 12.5 platelets 195 potassium 4.6 creatinine 0.73 February 09, 2024: White count 8.8 hemoglobin 13.8 platelets 209 potassium 3.8. 5 creatinine 0.75 blood glucose 116 X-ray left foot complete: Soft tissue swelling throughout the foot. Fixation screws in the fourth metacarpal appear intact. Suspected fifth metacarpal base fracture remains present. Assessment plan: -Acute osteomyelitis of left foot fifth metatarsal Wound culture:MRSA, StaphylococcusL,Skyler M on February 09 -Acute left foot abscess/soft tissue infection, in the foot that underwent surgery on January 04. Initial indication for surgery unclear. Patient 3 weeks ago started having pain and swelling. Did receive clindamycin for 2 weeks, stopped a week ago. Last 5 days symptoms have been worsening.: Acute osteomyelitis of left fifth foot metatarsal bone February 09: Bedside De- kyra was done by Dr. Shields-pus was obtained. Liter: Incision and drainage with debridement of left foot ulcer. And bone biopsy of left fifth metatarsal done. Cultures-showing multiple organisms including MRSA Patient seen on this admission by Dr. Shields.-To follow-up at wound care center at [facility] Patient to continue antibiotics per Dr. Coley -Pneumonia suspect gram-negative organism IV ceftriaxone given. Omnicef completed course -Possible acute non-Q wave VT. IV heparin-discontinued. Aspirin Lopressor Cardiology following Scheduled for cardiac catheterization today -Mild to moderate CAD per cardiac cath Follow-up with cardiology outpatient -IV heparin monitoring-discontinued Follow PTT -Acute hypoxic respiratory failure from COPD exacerbation: Resolved Patient requiring 15 L oxygen-on presentation -Chronic nicotine dependence cigarette smoker Nicotine patch -Acute COPD exacerbation in a current smoker DuoNeb every 4. IV Solu-Medrol Discharged on prednisone taper -Diabetes mellitus type 1 on insulin Januvia. Glucophage. Insulin -Hyperlipidemia Lofibra -Hypothyroid Synthroid 50 mcg -Bipolar disorder Continue home medication for the same -Essential hypertension Lisinopril -Epilepsy/grand mal seizures. Last episode several years ago. Briviact. Trileptal -Full code Disposition: Home Plan - Discharge Summary Discharge Rx Participant: Yes New Discharge Prescriptions: New predniSONE 0 mg PO DIRECTED #20 tab Collagenase [Santyl Ointment] 1 applic TOPICAL DAILY each Budesonide-Formot 160-4.5 Mcg [Symbicort 160-4.5 Mcg Inhaler] 2 puff INHALATION RT-BID #1 each Continue Haloperidol Decanoate [Haldol D] 200 mg IM Q21D lisinopriL 20 mg PO DAILY Levothyroxine Sodium [Synthroid] 50 mcg PO DAILY Aspirin [Adult Low Dose Aspirin EC] 81 mg PO DAILY metFORMIN HCL [Glucophage] 1,000 mg PO BID-W/MEALS lamoTRIgine [LaMICtal] 200 mg PO BID Brivaracetam [Briviact] 50 mg PO BID OXcarbazepine [Trileptal] 150 mg PO BID lamoTRIgine [LaMICtal] 75 mg PO BID traZODone HCL 150 mg PO HS Fluticasone Propionate [Flovent Hfa 220 mcg] 2 puff INHALATION RT-BID sitaGLIPtin [Januvia] 100 mg PO DAILY Tamsulosin HCl [Flomax] 0.4 mg PO HS Gabapentin [Neurontin] 400 mg PO TID Fenofibrate [Lofibra] 160 mg PO DAILY Famotidine [Pepcid] 40 mg PO BID Sertraline [Zoloft] 100 mg PO DAILY #30 tab Metoprolol Tartrate [Lopressor] 12.5 mg PO BID Albuterol Sulfate [Albuterol Sulfate Hfa] 2 puff PO RT-Q6H PRN PRN Reason: Shortness Of Breath tiZANidine [Zanaflex] 4 mg PO TID PRN PRN Reason: Pain Insulin NPH Hum/Reg Insulin Hm [humuLIN 70/30 Kwikpen] 33 unit SQ W/BRKFST Insulin NPH Hum/Reg Insulin Hm [humuLIN 70/30 Kwikpen] 18 unit SQ W/SUPPER Ferrous Sulfate [Iron (65 MG Elemental)] 325 mg PO DAILY Nicotine 14Mg/24Hr Patch [Habitrol] 1 patch TRANSDERM DAILY #42 patch Atorvastatin [Lipitor] 80 mg PO HS #30 tab No Action metroNIDAZOLE [Flagyl] 500 mg PO TID #90 tab Discharge Medication List Haloperidol Decanoate [Haldol D] 200 mg IM Q21D 07/31/14 [History] Aspirin [Adult Low Dose Aspirin EC] 81 mg PO DAILY 12/07/19 [History] Brivaracetam [Briviact] 50 mg PO BID 12/07/19 [History] Levothyroxine Sodium [Synthroid] 50 mcg PO DAILY 12/07/19 [History] lamoTRIgine [LaMICtal] 200 mg PO BID 12/07/19 [History] lisinopriL 20 mg PO DAILY 12/07/19 [History] metFORMIN HCL [Glucophage] 1,000 mg PO BID-W/MEALS 12/07/19 [History] Albuterol Sulfate [Albuterol Sulfate Hfa] 2 puff PO RT-Q6H PRN 02/07/23 [History] Famotidine [Pepcid] 40 mg PO BID 02/07/23 [History] Fenofibrate [Lofibra] 160 mg PO DAILY 02/07/23 [History] Fluticasone Propionate [Flovent Hfa 220 mcg] 2 puff INHALATION RT-BID 02/07/23 [History] Gabapentin [Neurontin] 400 mg PO TID 02/07/23 [History] Insulin NPH Hum/Reg Insulin Hm [humuLIN 70/30 Kwikpen] 18 unit SQ W/SUPPER 02/07/23 [History] Insulin NPH Hum/Reg Insulin Hm [humuLIN 70/30 Kwikpen] 33 unit SQ W/BRKFST 02/07/23 [History] OXcarbazepine [Trileptal] 150 mg PO BID 02/07/23 [History] Tamsulosin HCl [Flomax] 0.4 mg PO HS 02/07/23 [History] lamoTRIgine [LaMICtal] 75 mg PO BID 02/07/23 [History] sitaGLIPtin [Januvia] 100 mg PO DAILY 02/07/23 [History] tiZANidine [Zanaflex] 4 mg PO TID PRN 02/07/23 [History] traZODone HCL 150 mg PO HS 02/07/23 [History] Ferrous Sulfate [Iron (65 MG Elemental)] 325 mg PO DAILY 02/09/24 [History] Atorvastatin [Lipitor] 80 mg PO HS #30 tab 02/13/24 [Rx] Nicotine 14Mg/24Hr Patch [Habitrol] 1 patch TRANSDERM DAILY #42 patch 02/13/24 [Rx] Sertraline [Zoloft] 100 mg PO DAILY #30 tab 02/13/24 [Rx] metroNIDAZOLE [Flagyl] 500 mg PO TID #90 tab 02/13/24 [Rx] Metoprolol Tartrate [Lopressor] 12.5 mg PO BID 02/17/24 [History] Budesonide-Formot 160-4.5 Mcg [Symbicort 160-4.5 Mcg Inhaler] 2 puff INHALATION RT-BID #1 each 02/21/24 [Rx] Collagenase [Santyl Ointment] 1 applic TOPICAL DAILY each 02/21/24 [Rx] predniSONE 0 mg PO DIRECTED #20 tab 02/21/24 [Rx] Follow up Appointment(s)/Referral(s): Prasad Veliz DO [Primary Care Provider] - 1-2 days [facility], [REFERRING] - Latha Shields DPM [STAFF PHYSICIAN] - 1 Week [facility], [NON-STAFF] - 1 Week Patient Instructions/Handouts: *Surgery [facility] - After Heart Catheterization - Pre Billing Specialist Instructions, Viral Pneumonia (DC) Activity/Diet/Wound Care/Special Instructions: f/u wound center dr shields dc abx per dr rivera Discharge/Stand Alone Forms: Work/School Release Discharge Disposition: HOME SELF-CARE
== END 2024-02-21 17:39 | disposition home or self-care (01) | DRG 190 ==
LOC: EC 14:00 → 3SCARD 18:56
PROVIDERS: ADMIT Hospitalist; ATTEND Hospitalist
PROC: 4A023N7 Measurement of Cardiac Sampling and Pressure, Left Heart, Percutaneous Approach (ICD-10-PCS; principal; 2024-02-21 13:30)
PROC: B2111ZZ Fluoroscopy of Multiple Coronary Arteries using Low Osmolar Contrast (ICD-10-PCS; 2024-02-21 13:30)
DX: I21.4 Non-ST elevation (NSTEMI) myocardial infarction (principal); J18.9 Pneumonia, unspecified organism; J44.0 Chronic obstructive pulmonary disease with (acute) lower respiratory infection; J44.1 Chronic obstructive pulmonary disease with (acute) exacerbation; J45.901 Unspecified asthma with (acute) exacerbation; J96.01 Acute respiratory failure with hypoxia; K12.1 Other forms of stomatitis; K64.9 Unspecified hemorrhoids; L40.9 Psoriasis, unspecified; L97.524 Non-pressure chronic ulcer of other part of left foot with necrosis of bone; L98.494 Non-pressure chronic ulcer of skin of other sites with necrosis of bone; M86.172 Other acute osteomyelitis, left ankle and foot; I25.10 Atherosclerotic heart disease of native coronary artery without angina pectoris; I10 Essential (primary) hypertension; G40.409 Other generalized epilepsy and epileptic syndromes, not intractable, without status epilepticus; F41.0 Panic disorder [episodic paroxysmal anxiety]; F31.9 Bipolar disorder, unspecified; F20.9 Schizophrenia, unspecified; F17.210 Nicotine dependence, cigarettes, uncomplicated; E87.6 Hypokalemia; E78.5 Hyperlipidemia, unspecified; E11.69 Type 2 diabetes mellitus with other specified complication; E11.621 Type 2 diabetes mellitus with foot ulcer; E11.42 Type 2 diabetes mellitus with diabetic polyneuropathy; E03.9 Hypothyroidism, unspecified; G40.909 Epilepsy, unspecified, not intractable, without status epilepticus; B95.62 Methicillin resistant Staphylococcus aureus infection as the cause of diseases classified elsewhere; Z79.4 Long term (current) use of insulin; Z79.51 Long term (current) use of inhaled steroids; Z79.82 Long term (current) use of aspirin; Z79.84 Long term (current) use of oral hypoglycemic drugs; Z79.890 Hormone replacement therapy; Z79.899 Other long term (current) drug therapy; Z86.73 Personal history of transient ischemic attack (TIA), and cerebral infarction without residual deficits; Z90.79 Acquired absence of other genital organ(s); Z88.5 Allergy status to narcotic agent; Z71.6 Tobacco abuse counseling
CPT/HCPCS: 36415; 71045; 76937; 80048; 80061; 80202; 83605; 83735; 83880; 84145; 84484; 85025; 85730; 87040; 87449; 93005; 93306; 93458; 94640; 94760; 96365; 96366; 96368; 99291

== ENCOUNTER 2024-03-03 14:19 | Emergency (ER) | payer OTHER ==
[2024-03-03] MEDS ORDERED: VANCOMYCIN IV PER PHARMACY 1 EACH MISC MISCELLANE PRN (18:30)
--- NOTE | 2024-03-03 18:39 | ED ---
Recheck HPI - General Chief Complaint: Recheck/Abnormal Lab/Rx Stated Complaint: Pic Line Clog Time Seen by Provider: 03/03/24 17:00 Source: patient, RN notes reviewed Mode of arrival: ambulatory Limitations: no limitations - History of Present Illness Initial Comments: 43-year-old male presents to the ER with chief complaint of problem with PICC line. Patient states he had PICC line in right upper arm placed several weeks ago for foot infection. He states he has been giving himself vancomycin at home twice daily. He is unsure of the dose. Today, he had issues giving himself his dose and went to his doctor's office for evaluation. They attempted to flush the PICC line and administered tPA to the PICC line with no success. They then advised him to come to the ER for new placement of PICC line. Denies redness or tenderness at the site. Denies fevers or chills. - Related Data Home Medications Medication Instructions Recorded Confirmed Haloperidol Decanoate [Haldol D] 200 mg IM Q21D 07/31/14 02/17/24 Aspirin [Adult Low Dose Aspirin EC] 81 mg PO DAILY 12/07/19 02/17/24 Brivaracetam [Briviact] 50 mg PO BID 12/07/19 02/17/24 Levothyroxine Sodium [Synthroid] 50 mcg PO DAILY 12/07/19 02/17/24 lamoTRIgine [LaMICtal] 200 mg PO BID 12/07/19 02/17/24 lisinopriL 20 mg PO DAILY 12/07/19 02/17/24 metFORMIN HCL [Glucophage] 1,000 mg PO BID-W/MEALS 12/07/19 02/17/24 Albuterol Sulfate [Albuterol 2 puff PO RT-Q6H PRN 02/07/23 02/17/24 Sulfate Hfa] Famotidine [Pepcid] 40 mg PO BID 02/07/23 02/17/24 Fenofibrate [Lofibra] 160 mg PO DAILY 02/07/23 02/17/24 Fluticasone Propionate [Flovent 2 puff INHALATION RT-BID 02/07/23 02/17/24 Hfa 220 mcg] Gabapentin [Neurontin] 400 mg PO TID 02/07/23 02/17/24 Insulin NPH Hum/Reg Insulin Hm 18 unit SQ W/SUPPER 02/07/23 02/17/24 [humuLIN 70/30 Kwikpen] Insulin NPH Hum/Reg Insulin Hm 33 unit SQ W/BRKFST 02/07/23 02/17/24 [humuLIN 70/30 Kwikpen] OXcarbazepine [Trileptal] 150 mg PO BID 02/07/23 02/17/24 Tamsulosin HCl [Flomax] 0.4 mg PO HS 02/07/23 02/17/24 lamoTRIgine [LaMICtal] 75 mg PO BID 02/07/23 02/17/24 sitaGLIPtin [Januvia] 100 mg PO DAILY 02/07/23 02/17/24 tiZANidine [Zanaflex] 4 mg PO TID PRN 02/07/23 02/17/24 traZODone HCL 150 mg PO HS 02/07/23 02/17/24 Ferrous Sulfate [Iron (65 MG 325 mg PO DAILY 02/09/24 02/17/24 Elemental)] Metoprolol Tartrate [Lopressor] 12.5 mg PO BID 02/17/24 02/17/24 Previous Rx's Medication Instructions Recorded Atorvastatin [Lipitor] 80 mg PO HS #30 tab 02/13/24 Nicotine 14Mg/24Hr Patch [Habitrol] 1 patch TRANSDERM DAILY #42 patch 02/13/24 Sertraline [Zoloft] 100 mg PO DAILY #30 tab 02/13/24 metroNIDAZOLE [Flagyl] 500 mg PO TID #90 tab 02/13/24 Budesonide-Formot 160-4.5 Mcg 2 puff INHALATION RT-BID #1 each 02/21/24 [Symbicort 160-4.5 Mcg Inhaler] Collagenase [Santyl Ointment] 1 applic TOPICAL DAILY each 02/21/24 predniSONE 0 mg PO DIRECTED #20 tab 02/21/24 Allergies Allergy/AdvReac Type Severity Reaction Status Date / Time hydrocodone Allergy hives, Verified 03/03/24 14:30 nausea and vomiting ketorolac [From Toradol] Allergy Abdominal Verified 03/03/24 14:30 Pain mirtazapine [From Remeron] Allergy Abdominal Verified 03/03/24 14:30 Pain pioglitazone [From Actos] Allergy Abdominal Verified 03/03/24 14:30 Pain acetaminophen AdvReac Nausea & Verified 03/03/24 14:30 [From Tylenol-Codeine #3] Vomiting codeine AdvReac Nausea & Verified 03/03/24 14:30 [From Tylenol-Codeine #3] Vomiting Review of Systems ROS Statement: Those systems with pertinent positive or pertinent negative responses have been documented in the HPI. ROS Other: All systems not noted in ROS Statement are negative. Past Medical History Past Medical History: Asthma, Chest Pain / Angina, COPD, CVA/TIA, Diabetes Mellitus, GERD/Reflux, Hyperlipidemia, Hypertension, Seizure Disorder, Skin Disorder Additional Past Medical History / Comment(s): IDDM type II, grand mal seizures, coughing from cigarettes, hemorrhoid, constipation/diarrhea, hx psoriasis, eczema, back pain, hydrocele. 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, [facility] surgery, sternum partially removed/muscle flap, lumbar puncture 10/03/23 Past Anesthesia/Blood Transfusion Reactions: No Reported Reaction Past Psychological History: Anxiety, Bipolar, Depression, Panic Disorder, Schizophrenia Smoking Status: Current every day smoker, Light tobacco smoker Past Alcohol Use History: Occasional Past Drug Use History: None Reported - Past Family History Sister(s) Family Medical History: Cancer Mother Family Medical History: Cancer Father Family Medical History: Cancer General Exam Limitations: no limitations General appearance: alert, in no apparent distress Head exam: Present: atraumatic, normocephalic, normal inspection Eye exam: Present: normal appearance, PERRL, EOMI. Absent: scleral icterus, conjunctival injection, periorbital swelling ENT exam: Present: normal exam, mucous membranes moist Respiratory exam: Present: normal lung sounds bilaterally. Absent: respiratory distress, wheezes, rales, rhonchi, stridor Cardiovascular Exam: Present: regular rate, normal rhythm, normal heart sounds. Absent: systolic murmur, diastolic murmur, rubs, gallop, clicks Extremities exam: Present: full ROM, normal capillary refill, other (PICC line present in right upper arm. No erythema or tenderness at the site.). Absent: tenderness, pedal edema, joint swelling, calf tenderness Neurological exam: Present: alert, oriented X3, CN II-XII intact Psychiatric exam: Present: normal affect, normal mood Skin exam: Present: warm, dry, intact, normal color. Absent: rash Course Vital Signs 03/03/24 03/03/24 14:28 17:41 Temperature 98 F 98.4 F Pulse Rate 88 82 Respiratory 18 17 Rate Blood Pressure 124/83 132/89 O2 Sat by Pulse 96 98 Oximetry Medical Decision Making - Medical Decision Making Was pt. sent in by a medical professional or institution (ADILSON Veliz, [facility], urgent care, hospital, or senior care...) When possible be specific @ -Sent by PCP for new placement of PICC line Did you speak to anyone other than the patient for history (EMS, parent, family, police, friend...)? What history was obtained from this source @ -No Did you review nursing and triage notes (agree or disagree)? Why? @ -I reviewed and agree with nursing and triage notes Were old charts reviewed (outside hosp., previous admission, EMS record, old EKG, old radiological studies, urgent care reports/EKG's, senior care records)? Report findings @ -No old charts were reviewed Differential Diagnosis (chest pain, altered mental status, abdominal pain women, abdominal pain men, vaginal bleeding, weakness, fever, dyspnea, syncope, headache, dizziness, GI bleed, back pain, seizure, CVA, palpatations, mental health, musculoskeletal)? @ -PICC line issue, cellulitis, thrombophlebitis, abscess EKG interpreted by me (3pts min.). @ -None X-rays interpreted by me (1pt min.). @ -None done CT interpreted by me (1pt min.). @ -None done U/S interpreted by me (1pt. min.). @ -None done What testing was considered but not performed or refused? (CT, X-rays, U/S, labs)? Why? @ -None What meds were considered but not given or refused? Why? @ -None Did you discuss the management of the patient with other professionals (professionals i.e. ADILSON Veliz, [facility], lab, RT, psych nurse, social worker school, family lawyer, teacher, licensed mortgage loan officer, case technician)? Give summary @ -Case discussed with Dr. Delgado who recommends patient follows up in office tomorrow for new PICC line placement. Was smoking cessation discussed for >3mins.? @ -No Was critical care preformed (if so, how long)? @ -No Were there social determinants of health that impacted care today? How? (Homelessness, low income, unemployed, alcoholism, drug addiction, transportation, low edu. Level, literacy, decrease access to med. care, half-way, rehab)? @ -No Was there de-escalation of care discussed even if they declined (Discuss DNR or withdrawal of care, Hospice)? DNR status @ -No What co-morbidities impacted this encounter? (DM, HTN, Smoking, COPD, CAD, Cancer, CVA, ARF, Chemo, Hep., AIDS, mental health diagnosis, sleep apnea, morbid obesity)? @ -None Was patient admitted / discharged? Hospital course, mention meds given and route, prescriptions, significant lab abnormalities, going to OR and other pertinent info. @ -Patient was discharged. Patient was seen and evaluated for PICC line issue. Patient is giving himself vancomycin twice daily for foot infection. He was sent by his PCP this morning as they attempted to flush the PICC line and administered tPA to the PICC line with no success. He was told he needs a new PICC line placement. There is no sign of bacterial infection at the site. Case discussed with Dr. Delgado who recommends patient follows up in office tomorrow for new PICC line placement. Patient was given dose of IV vancomycin in ER. Advised to follow-up with vascular services in office tomorrow. Patient is agreeable to plan. Case discussed with my attending Dr. Saravia. Patient disc harged in stable condition Undiagnosed new problem with uncertain prognosis? @ -No Drug Therapy requiring intensive monitoring for toxicity (Heparin, Nitro, Insulin, Cardizem)? @ -No Were any procedures done? @ -No Diagnosis/symptom? @ -PICC line issue Acute, or Chronic, or Acute on Chronic? @ -Acute Uncomplicated (without systemic symptoms) or Complicated (systemic symptoms)? @ -Uncomplicated Side effects of treatment? @ -No Exacerbation, Progression, or Severe Exacerbation? @ -No Poses a threat to life or bodily function? How? (Chest pain, USA, SD, pneumonia, PE, COPD, DKA, ARF, appy, cholecystitis, CVA, Diverticulitis, Homicidal, Suicidal, threat to staff... and all critical care pts) @ -No Disposition Clinical Impression: Occluded PICC line Disposition: HOME SELF-CARE Condition: Stable Instructions (If sedation given, give patient instructions): How to Care for Your PICC (Peripherally Inserted Central Catheter) (ED) Additional Instructions: Follow-up with vascular tomorrow. Please return to the Emergency Department if symptoms worsen or any other concerns. Is patient prescribed a controlled substance at d/c from ED?: No Referrals: None,Stated [REFERRING] - 1-2 days Wan Delgado DO [STAFF PHYSICIAN] - 1-2 days Time of Disposition: 18:49
[2024-03-03] MEDS: VANCOMYCIN 1,500 MG in SODIUM CHLORIDE 0.9% 500 ML 500 ML IVPB STA (20:21)
[2024-03-03 23:45] VITALS: BP 142/86; PULSE 68; RESP 18; TEMP 98.2
[2024-03-04] MEDS ORDERED: VANCOMYCIN 1,500 MG in SODIUM CHLORIDE 0.9% 500 ML 500 ML IVPB SCH (04:00)
== END 2024-03-03 23:38 | disposition home or self-care (01) ==
LOC: EC 14:19
DX: T82.898A Other specified complication of vascular prosthetic devices, implants and grafts, initial encounter (principal); F17.200 Nicotine dependence, unspecified, uncomplicated; Z88.6 Allergy status to analgesic agent; Z88.8 Allergy status to other drugs, medicaments and biological substances; Z88.5 Allergy status to narcotic agent
CPT/HCPCS: 99283; 96365; 96366 ×2; J3370

== ENCOUNTER 2024-03-04 09:33 | Emergency (ER) | payer OTHER ==
[2024-03-04 09:44] VITALS: BP 111/80; PULSE 74; RESP 18; TEMP 97.5
[2024-03-04] MEDS ORDERED: VANCOMYCIN IV PER PHARMACY 1 EACH MISC MISCELLANE PRN (11:46)
--- NOTE | 2024-03-04 11:53 | ED ---
General Adult HPI - General Chief complaint: Recheck/Abnormal Lab/Rx Stated complaint: Pic Line Issue Time Seen by Provider: 03/04/24 11:34 Source: patient, RN notes reviewed Mode of arrival: ambulatory Limitations: no limitations - History of Present Illness Initial comments: 43-year-old male presents to the emergency department for evaluation of PICC line issue. He states that his PICC line is occluded. He went to [facility] yesterday and was administered tPa. He reports that this did not work. He states that he came here following this. Dr. Delgado was contacted and patient was told to follow-up in the office. He states that he attempted to call today and was told that he was not in the office and to come back to the emergency department. He has not received his vancomycin today. - Related Data Home Medications Medication Instructions Recorded Confirmed Haloperidol Decanoate [Haldol D] 200 mg IM Q21D 07/31/14 03/04/24 Aspirin [Adult Low Dose Aspirin EC] 81 mg PO DAILY 12/07/19 03/04/24 Brivaracetam [Briviact] 50 mg PO BID 12/07/19 03/04/24 Levothyroxine Sodium [Synthroid] 50 mcg PO DAILY 12/07/19 03/04/24 lamoTRIgine [LaMICtal] 200 mg PO BID 12/07/19 03/04/24 lisinopriL 20 mg PO DAILY 12/07/19 03/04/24 metFORMIN HCL [Glucophage] 1,000 mg PO BID-W/MEALS 12/07/19 03/04/24 Albuterol Sulfate [Albuterol 2 puff PO RT-Q6H PRN 02/07/23 03/04/24 Sulfate Hfa] Famotidine [Pepcid] 40 mg PO BID 02/07/23 03/04/24 Fenofibrate [Lofibra] 160 mg PO DAILY 02/07/23 03/04/24 Fluticasone Propionate [Flovent 2 puff INHALATION RT-BID 02/07/23 03/04/24 Hfa 220 mcg] Gabapentin [Neurontin] 400 mg PO TID 02/07/23 03/04/24 Insulin NPH Hum/Reg Insulin Hm 18 unit SQ W/SUPPER 02/07/23 03/04/24 [humuLIN 70/30 Kwikpen] Insulin NPH Hum/Reg Insulin Hm 33 unit SQ W/BRKFST 02/07/23 03/04/24 [humuLIN 70/30 Kwikpen] OXcarbazepine [Trileptal] 150 mg PO BID 02/07/23 03/04/24 Tamsulosin HCl [Flomax] 0.4 mg PO HS 02/07/23 03/04/24 lamoTRIgine [LaMICtal] 75 mg PO BID 02/07/23 03/04/24 sitaGLIPtin [Januvia] 100 mg PO DAILY 02/07/23 03/04/24 tiZANidine [Zanaflex] 4 mg PO TID PRN 02/07/23 03/04/24 traZODone HCL 150 mg PO HS 02/07/23 03/04/24 Ferrous Sulfate [Iron (65 MG 325 mg PO DAILY 02/09/24 03/04/24 Elemental)] Metoprolol Tartrate [Lopressor] 12.5 mg PO BID 02/17/24 03/04/24 Previous Rx's Medication Instructions Recorded Atorvastatin [Lipitor] 80 mg PO HS #30 tab 02/13/24 Nicotine 14Mg/24Hr Patch [Habitrol] 1 patch TRANSDERM DAILY #42 patch 02/13/24 Sertraline [Zoloft] 100 mg PO DAILY #30 tab 02/13/24 metroNIDAZOLE [Flagyl] 500 mg PO TID #90 tab 02/13/24 Budesonide-Formot 160-4.5 Mcg 2 puff INHALATION RT-BID #1 each 02/21/24 [Symbicort 160-4.5 Mcg Inhaler] Collagenase [Santyl Ointment] 1 applic TOPICAL DAILY each 02/21/24 predniSONE 0 mg PO DIRECTED #20 tab 02/21/24 Allergies Allergy/AdvReac Type Severity Reaction Status Date / Time ketorolac [From Toradol] Allergy Abdominal Verified 03/04/24 09:44 Pain mirtazapine [From Remeron] Allergy Abdominal Verified 03/04/24 09:44 Pain pioglitazone [From Actos] Allergy Abdominal Verified 03/04/24 09:44 Pain acetaminophen AdvReac Nausea & Verified 03/04/24 09:44 [From Tylenol-Codeine #3] Vomiting codeine AdvReac Nausea & Verified 03/04/24 09:44 [From Tylenol-Codeine #3] Vomiting Review of Systems ROS Statement: Those systems with pertinent positive or pertinent negative responses have been documented in the HPI. ROS Other: All systems not noted in ROS Statement are negative. Past Medical History Past Medical History: Asthma, Chest Pain / Angina, COPD, CVA/TIA, Diabetes Mellitus, GERD/Reflux, Hyperlipidemia, Hypertension, Seizure Disorder, Skin Disorder Additional Past Medical History / Comment(s): IDDM type II, grand mal seizures, coughing from cigarettes, hemorrhoid, constipation/diarrhea, hx psoriasis, eczema, back pain, hydrocele. 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, [facility] foot surgery, sternum partially removed/muscle flap, lumbar puncture 10/03/23 Past Anesthesia/Blood Transfusion Reactions: No Reported Reaction Past Psychological History: Anxiety, Bipolar, Depression, Panic Disorder, Schizophrenia Smoking Status: Current every day smoker, Light tobacco smoker Past Alcohol Use History: Occasional Past Drug Use History: None Reported - Past Family History Sister(s) Family Medical History: Cancer Mother Family Medical History: Cancer Father Family Medical History: Cancer General Exam Limitations: no limitations General appearance: alert, in no apparent distress Head exam: Present: atraumatic, normocephalic, normal inspection Eye exam: Present: normal appearance, PERRL, EOMI. Absent: scleral icterus, conjunctival injection, periorbital swelling ENT exam: Present: normal exam, mucous membranes moist Neck exam: Present: normal inspection. Absent: tenderness, meningismus, lymphadenopathy Respiratory exam: Present: normal lung sounds bilaterally. Absent: respiratory distress, wheezes, rales, rhonchi, stridor Cardiovascular Exam: Present: regular rate, normal rhythm, normal heart sounds. Absent: systolic murmur, diastolic murmur, rubs, gallop, clicks Extremities exam: Present: normal inspection, full ROM, normal capillary refill. Absent: tenderness, pedal edema, joint swelling, calf tenderness Back exam: Present: normal inspection Neurological exam: Present: alert, oriented X3 Psychiatric exam: Present: normal affect, normal mood Course Vital Signs 03/04/24 09:39 Temperature 97.5 F L Pulse Rate 74 Respiratory 18 Rate Blood Pressure 111/80 O2 Sat by Pulse 97 Oximetry Medical Decision Making - Medical Decision Making Was pt. sent in by a medical professional or institution (ADILSON Veliz, SHADING PAINTER, urgent care, hospital, or assisted...) When possible be specific @ -No Did you speak to anyone other than the patient for history (EMS, parent, family, police, friend...)? What history was obtained from this source @ -No Did you review nursing and triage notes (agree or disagree)? Why? @ -I reviewed and agree with nursing and triage notes Were old charts reviewed (outside hosp., previous admission, EMS record, old EKG, old radiological studies, urgent care reports/EKG's, assisted records)? Report findings @ -No old charts were reviewed Differential Diagnosis (chest pain, altered mental status, abdominal pain women, abdominal pain men, vaginal bleeding, weakness, fever, dyspnea, syncope, headache, dizziness, GI bleed, back pain, seizure, CVA, palpatations, mental health, musculoskeletal)? @ -PICC line occlusion, diabetic foot ulcers, flu infection, this list is not all inclusive EKG interpreted by me (3pts min.). @ -None X-rays interpreted by me (1pt min.). @ -None done CT interpreted by me (1pt min.). @ -None done U/S interpreted by me (1pt. min.). @ -None done What testing was considered but not performed or refused? (CT, X-rays, U/S, labs)? Why? @ -None What meds were considered but not given or refused? Why? @ -None Did you discuss the management of the patient with other professionals (professionals i.e. ADILSON Veliz, SHADING PAINTER, lab, RT, psych nurse, mental health social worker, concrete curer, teacher, activities officer, bottle caser)? Give summary @ -Management was discussed with Dr. Delgado who recommended I speak with Nila Krause NP-C Discussed with Nila Krause who states that there should be PICC team available to replace the PICC line. Was smoking cessation discussed for >3mins.? @ -No Was critical care preformed (if so, how long)? @ -No Were there social determinants of health that impacted care today? How? (Homelessness, low income, unemployed, alcoholism, drug addiction, transportation, low edu. Level, literacy, decrease access to med. care, snf, rehab)? @ -No Was there de-escalation of care discussed even if they declined (Discuss DNR or withdrawal of care, Hospice)? DNR status @ -No What co-morbidities impacted this encounter? (DM, HTN, Smoking, COPD, CAD, Cancer, CVA, ARF, Chemo, Hep., AIDS, mental health diagnosis, sleep apnea, morbid obesity)? @ -None Was patient admitted / discharged? Hospital course, mention meds given and route, prescriptions, significant lab abnormalities, going to OR and other pertinent info. @ -Discharge. Patient presented to the emergency department for PICC line occlusion. This was flushed yesterday without success. He was advised to follow-up in the office with Dr. Delgado for this. Patient states that he attempted to follow-up in the office today but was unsuccessful prompting him to return back to the emergency department. This was discussed with Dr. Delgado, I was advised to speak to Nila Krause and have her evaluate the patient. She states that there is a PICC team that should be available to replace the PICC line. PICC line team was contacted and the procedure was performed for the patient. He will be discharged advised to continue his vancomycin and follow-up with his infectious disease provider. Undiagnosed new problem with uncertain prognosis? @ -No Drug Therapy requiring intensive monitoring for toxicity (Heparin, Nitro, Insulin, Cardizem)? @ -No Were any procedures done? @ -Patient received a replacement of the PICC line by the PICC line team Diagnosis/symptom? @ -PICC line occlusion Acute, or Chronic, or Acute on Chronic? @ -Acute Uncomplicated (without systemic symptoms) or Complicated (systemic symptoms)? @ -Uncomplicated Side effects of treatment? @ -No Exacerbation, Progression, or Severe Exacerbation? @ -No Poses a threat to life or bodily function? How? (Chest pain, USA, SC, pneumonia, PE, COPD, DKA, ARF, appy, cholecystitis, CVA, Diverticulitis, Homicidal, Suicidal, threat to staff... and all critical care pts) @ -No - Lab Data Result diagrams: 03/04/24 12:12 03/04/24 12:12 Lab Results 03/04/24 03/04/24 Range/Units 12:12 12:12 WBC 7.6 (3.8-10.6) k/uL RBC 4.64 (4.30-5.90) m/uL Hgb 13.7 D (13.0-17.5) gm/dL Hct 43.9 (39.0-53.0) % MCV 94.5 (80.0-100.0) fL MCH 29.5 (25.0-35.0) pg MCHC 31.3 (31.0-37.0) g/dL RDW 13.6 (11.5-15.5) % Plt Count 210 (150-450) k/uL MPV 7.5 Neutrophils % 67 % Lymphocytes % 17 % Monocytes % 8 % Eosinophils % 6 % Basophils % 1 % Neutrophils # 5.1 (1.3-7.7) k/uL Lymphocytes # 1.3 (1.0-4.8) k/uL Monocytes # 0.6 (0-1.0) k/uL Eosinophils # 0.4 (0-0.7) k/uL Basophils # 0.1 (0-0.2) k/uL Sodium 136 L (137-145) mmol/L Potassium 4.9 (3.5-5.1) mmol/L Chloride 103 (98-107) mmol/L Carbon Dioxide 28 (22-30) mmol/L Anion Gap 5 mmol/L BUN 17 (9-20) mg/dL Creatinine 0.69 (0.66-1.25) mg/dL Est GFR (CKD-EPI)AfAm >90 (>60 ml/min/1.73 sqM) Est GFR (CKD-EPI)NonAf >90 (>60 ml/min/1.73 sqM) Glucose 211 H (74-99) mg/dL Calcium 9.2 (8.4-10.2) mg/dL Total Bilirubin 0.4 (0.2-1.3) mg/dL AST 47 (17-59) U/L ALT 63 H (4-49) U/L Alkaline Phosphatase 60 (38-126) U/L Total Protein 6.4 (6.3-8.2) g/dL Albumin 3.7 (3.5-5.0) g/dL Disposition Clinical Impression: Occluded PICC line Disposition: HOME SELF-CARE Condition: Stable Is patient prescribed a controlled substance at d/c from ED?: No Referrals: Prasad Veliz DO [Primary Care Provider] - 1-2 days
[2024-03-04] MEDS: VANCOMYCIN 1,500 MG in SODIUM CHLORIDE 0.9% 500 ML 500 ML IVPB STA (12:20)
[2024-03-04 12:34] LABS: Basophils # (A) 0.1 k/uL (0-0.2); Basophils % (A) 1 %; Eosinophils # (A) 0.4 k/uL (0-0.7); Eosinophils % (A) 6 %; HCT 43.9 % (39.0-53.0); Lymphocytes # (A) 1.3 k/uL (1.0-4.8); Lymphocytes % (A) 17 %; MCH 29.5 pg (25.0-35.0); MCHC 31.3 g/dL (31.0-37.0); MCV 94.5 fL (80.0-100.0); Mean Platelet Volume 7.5; Monocytes # (A) 0.6 k/uL (0-1.0); Monocytes % (A) 8 %; Neutrophils # (A) 5.1 k/uL (1.3-7.7); Neutrophils % (A) 67 %; Platelet Count 210 k/uL (150-450); RBC 4.64 m/uL (4.30-5.90); RDW 13.6 % (11.5-15.5); WBC 7.6 k/uL (3.8-10.6)
[2024-03-04 12:43] LABS: HGB 13.7 gm/dL (13.0-17.5)
[2024-03-04 13:02] LABS: ALT 63 U/L (4-49); AST 47 U/L (17-59); African American GFR (CKD) >90 (>60 ml/min/1.73 sqM); Albumin 3.7 g/dL (3.5-5.0); Alkaline Phosphatase 60 U/L (38-126); Anion Gap 5 mmol/L; Blood Urea Nitrogen 17 mg/dL (9-20); Calcium 9.2 mg/dL (8.4-10.2); Carbon Dioxide 28 mmol/L (22-30); Chloride 103 mmol/L (98-107); Glucose 211 mg/dL (74-99); Non-African American GFR(CKD) >90 (>60 ml/min/1.73 sqM); Potassium 4.9 mmol/L (3.5-5.1); Sodium 136 mmol/L (137-145); Total Bilirubin 0.4 mg/dL (0.2-1.3); Total Protein 6.4 g/dL (6.3-8.2)
--- NOTE | 2024-03-04 15:15 | XR ---
EXAMINATION TYPE: XR chest 1V DATE OF EXAM: 03/04/2024 COMPARISON: 02/18/2024 INDICATION: PICC line placement TECHNIQUE: Single frontal view of the chest is obtained. FINDINGS: The heart size is normal. The pulmonary vasculature is normal. Mild perihilar infiltrate may be present. This is improved from comparison. Line enters on the right with the tip in the distal superior vena cava region. IMPRESSION: 1. Mild perihilar infiltrate improved from comparison. 2. Placement of a right-sided PICC with the tip in the distal superior vena cava region
[2024-03-04] MEDS ORDERED: VANCOMYCIN 1,500 MG in SODIUM CHLORIDE 0.9% 500 ML 500 ML IVPB SCH (20:00)
== END 2024-03-04 15:41 | disposition home or self-care (01) ==
LOC: EC 09:33
DX: T82.898A Other specified complication of vascular prosthetic devices, implants and grafts, initial encounter (principal); F17.200 Nicotine dependence, unspecified, uncomplicated; Z88.6 Allergy status to analgesic agent; Z88.5 Allergy status to narcotic agent; Z88.8 Allergy status to other drugs, medicaments and biological substances; Z86.73 Personal history of transient ischemic attack (TIA), and cerebral infarction without residual deficits
CPT/HCPCS: 36415; 36573; 36584; 71045; 80053; 85025; 96365; 96366; 99283

== ENCOUNTER → 2024-03-15 | Outpatient (CLI) | payer OTHER ==
[2024-03-15 11:44] LABS: Amphetamine Screen,Urine Not Detected (NotDetected); Barbiturate Screen,Urine Not Detected (NotDetected); Benzodiazepines Screen,Urine Not Detected (NotDetected); Cocaine Screen,Urine Not Detected (NotDetected); Methadone Screen, Urine Not Detected (NotDetected); Opiate Screen,Urine Not Detected (NotDetected); Oxycodone Screen, Urine Not Detected (NotDetected); Phencyclidine Screen,Urine Not Detected (NotDetected); Tricyclic Antidepressant,Urine Not Detected (NotDetected); Urn Cannabinoid Scrn Detected (NotDetected)
[2024-03-15 11:49] LABS: INR 0.9 (<1.2); Partial Thromboplastin Time 25.8 sec (22.0-30.0); Prothrombin Time 10.3 sec (10.0-12.5)
[2024-03-15 15:05] LABS: HCT 42.8 % (39.6-50.0); HGB 13.3 g/dL (13.0-17.0); MCH 29.6 pg (27.0-32.0); MCHC 31.1 g/dL (32.0-37.0); MCV 95.1 FL (80.0-97.0); Mean Platelet Volume 10.5 FL (9.5-12.2); NRBC Per 100 WBC 0 X 10*3/uL (0.00-0.01); Platelet Count 167 X 10*3/uL (140-440); RDW 13.7 % (11.5-14.5)
[2024-03-15 15:45] LABS: Prealbumin 24.5 mg/dL (18.0-42.0)
[2024-03-15 16:00] LABS: Chol/HDL Ratio 4.22 Ratio; Iron 65 UG/DL (65-175); Magnesium 1.5 mg/dL (1.5-2.4)
[2024-03-15 16:01] LABS: % Iron Saturation 18.41 (15.00-50.00); ALT 43 U/L (10-49); AST 33 U/L (14-35); Albumin 3.7 g/dL (3.8-4.9); Albumin/Globulin Ratio 1.37 Ratio (1.60-3.17); Alkaline Phosphatase 81 U/L (41-126); BUN/Creat Ratio 18.62 Ratio (12.00-20.00); Blood Urea Nitrogen 14.9 mg/dL (9.0-27.0); Calcium 9.3 mg/dL (8.7-10.3); Carbon Dioxide 22.3 mmol/L (21.6-31.8); Chloride 98 mmol/L (96-109); Globulin 2.7 g/dL (1.6-3.3); Glucose 400 mg/dL (70-110); LDL Cholesterol,Calculated 50.1 mg/dL (0.0-131.0); Phosphorus 3.8 mg/dL (2.4-5.1); Potassium 4.8 mmol/L (3.5-5.5); Sodium 134 mmol/L (135-145); Total Bilirubin 0.3 mg/dL (0.3-1.2); Total Iron Binding Capacity 353 UG/DL (228-460); Total Protein 6.4 g/dL (6.2-8.2)
[2024-03-15 16:02] LABS: Ferritin 66.5 ng/mL (22.0-322.0)
[2024-03-16 11:06] LABS: Zinc, Serum 83 ug/dL (60-130)
[2024-03-17 06:31] LABS: Vitamin A 72 ug/dL (38-106)
[2024-03-17 07:48] LABS: Vit B1(Thiamine) 58 ug/L (38-122)
== END | disposition home or self-care (01) ==
LOC: LABWHC1 10:27
PROVIDERS: ATTEND Surgery Plastic and Reconstructive Surgery
DX: E66.01 Morbid (severe) obesity due to excess calories (principal); E89.1 Postprocedural hypoinsulinemia; D50.8 Other iron deficiency anemias; K91.2 Postsurgical malabsorption, not elsewhere classified; E44.0 Moderate protein-calorie malnutrition; E44.1 Mild protein-calorie malnutrition; E45 Retarded development following protein-calorie malnutrition; E55.9 Vitamin D deficiency, unspecified; K74.1 Hepatic sclerosis; N19 Unspecified kidney failure; T56.894A Toxic effect of other metals, undetermined, initial encounter; K50.90 Crohn's disease, unspecified, without complications
CPT/HCPCS: 84255; 84134; 84425; 80061; 80053; 82607; 82728; 82525; 82746; 83540; 83550; 83735; 84100; 84443; 84590; 84630; 85027; 85610; 85730; 82306; 80306; 83970; 83036; 36415; G0480; 80323

== ENCOUNTER 2024-04-08 10:27 | Emergency (ER) | payer OTHER ==
[2024-04-08 10:34] VITALS: RESP 18
--- NOTE | 2024-04-08 11:29 | ED ---
General Adult HPI - General Chief complaint: Weakness Stated complaint: Hypotension Time Seen by Provider: 04/08/24 10:48 Source: patient, RN notes reviewed Mode of arrival: ambulatory Limitations: no limitations - History of Present Illness Initial comments: 44-year-old male presents to the emergency department for evaluation of low blood pressure readings at home and leg pain for the past 1 week. He states that his blood pressure has been running low and he feels weak. He states that this occurs when he stands and moves for few seconds. He states that he has not been able to walk long distances because he has been experiencing discomfort in his legs. Denies recent fever, chills, chest pain, shortness of breath. He does admit to cough. - Related Data Home Medications Medication Instructions Recorded Confirmed Haloperidol Decanoate [Haldol D] 200 mg IM Q21D 07/31/14 03/04/24 Aspirin [Adult Low Dose Aspirin EC] 81 mg PO DAILY 12/07/19 03/04/24 Brivaracetam [Briviact] 50 mg PO BID 12/07/19 03/04/24 Levothyroxine Sodium [Synthroid] 50 mcg PO DAILY 12/07/19 03/04/24 lamoTRIgine [LaMICtal] 200 mg PO BID 12/07/19 03/04/24 lisinopriL 20 mg PO DAILY 12/07/19 03/04/24 metFORMIN HCL [Glucophage] 1,000 mg PO BID-W/MEALS 12/07/19 03/04/24 Albuterol Sulfate [Albuterol 2 puff PO RT-Q6H PRN 02/07/23 03/04/24 Sulfate Hfa] Famotidine [Pepcid] 40 mg PO BID 02/07/23 03/04/24 Fenofibrate [Lofibra] 160 mg PO DAILY 02/07/23 03/04/24 Fluticasone Propionate [Flovent 2 puff INHALATION RT-BID 02/07/23 03/04/24 Hfa 220 mcg] Gabapentin [Neurontin] 400 mg PO TID 02/07/23 03/04/24 Insulin NPH Hum/Reg Insulin Hm 18 unit SQ W/SUPPER 02/07/23 03/04/24 [humuLIN 70/30 Kwikpen] Insulin NPH Hum/Reg Insulin Hm 33 unit SQ W/BRKFST 02/07/23 03/04/24 [humuLIN 70/30 Kwikpen] OXcarbazepine [Trileptal] 150 mg PO BID 02/07/23 03/04/24 Tamsulosin HCl [Flomax] 0.4 mg PO HS 02/07/23 03/04/24 lamoTRIgine [LaMICtal] 75 mg PO BID 02/07/23 03/04/24 sitaGLIPtin [Januvia] 100 mg PO DAILY 02/07/23 03/04/24 tiZANidine [Zanaflex] 4 mg PO TID PRN 02/07/23 03/04/24 traZODone HCL 150 mg PO HS 02/07/23 03/04/24 Ferrous Sulfate [Iron (65 MG 325 mg PO DAILY 02/09/24 03/04/24 Elemental)] Metoprolol Tartrate [Lopressor] 12.5 mg PO BID 02/17/24 03/04/24 Ergocalciferol [Vitamin D2 (1250 50,000 unit PO WEEKLY 03/30/24 03/30/24 Mcg = 28562 Iu)] Previous Rx's Medication Instructions Recorded Atorvastatin [Lipitor] 80 mg PO HS #30 tab 02/13/24 Nicotine 14Mg/24Hr Patch [Habitrol] 1 patch TRANSDERM DAILY #42 patch 02/13/24 Sertraline [Zoloft] 100 mg PO DAILY #30 tab 02/13/24 metroNIDAZOLE [Flagyl] 500 mg PO TID #90 tab 02/13/24 Budesonide-Formot 160-4.5 Mcg 2 puff INHALATION RT-BID #1 each 02/21/24 [Symbicort 160-4.5 Mcg Inhaler] Collagenase [Santyl Ointment] 1 applic TOPICAL DAILY each 02/21/24 predniSONE 0 mg PO DIRECTED #20 tab 02/21/24 Allergies Allergy/AdvReac Type Severity Reaction Status Date / Time ketorolac [From Toradol] Allergy Abdominal Verified 04/08/24 10:34 Pain mirtazapine [From Remeron] Allergy Abdominal Verified 04/08/24 10:34 Pain pioglitazone [From Actos] Allergy Abdominal Verified 04/08/24 10:34 Pain acetaminophen AdvReac Nausea & Verified 04/08/24 10:34 [From Tylenol-Codeine #3] Vomiting codeine AdvReac Nausea & Verified 04/08/24 10:34 [From Tylenol-Codeine #3] Vomiting Review of Systems ROS Statement: Those systems with pertinent positive or pertinent negative responses have been documented in the HPI. ROS Other: All systems not noted in ROS Statement are negative. Past Medical History Past Medical History: Asthma, Chest Pain / Angina, COPD, CVA/TIA, Diabetes Mellitus, GERD/Reflux, Hyperlipidemia, Hypertension, Seizure Disorder, Skin Disorder Additional Past Medical History / Comment(s): IDDM type II, grand mal seizures, coughing from cigarettes, hemorrhoid, constipation/diarrhea, hx psoriasis, eczema, back pain, hydrocele. 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, [facility] surgery, sternum partially removed/muscle flap, lumbar puncture 10/03/23 Past Anesthesia/Blood Transfusion Reactions: No Reported Reaction Past Psychological History: Anxiety, Bipolar, Depression, Panic Disorder, Schizophrenia Smoking Status: Current every day smoker, Light tobacco smoker Past Alcohol Use History: Occasional Past Drug Use History: None Reported - Past Family History Sister(s) Family Medical History: Cancer Mother Family Medical History: Cancer Father Family Medical History: Cancer General Exam Limitations: no limitations General appearance: alert, in no apparent distress Head exam: Present: atraumatic, normocephalic, normal inspection Eye exam: Present: normal appearance, PERRL, EOMI. Absent: scleral icterus, conjunctival injection, periorbital swelling ENT exam: Present: normal exam, mucous membranes moist Neck exam: Present: normal inspection. Absent: tenderness, meningismus, lymphadenopathy Respiratory exam: Present: normal lung sounds bilaterally. Absent: respiratory distress, wheezes, rales, rhonchi, stridor Cardiovascular Exam: Present: regular rate, normal rhythm, normal heart sounds. Absent: systolic murmur, diastolic murmur, rubs, gallop, clicks GI/Abdominal exam: Present: soft, normal bowel sounds. Absent: distended, ten derness, guarding, rebound, rigid Extremities exam: Present: normal inspection, full ROM, normal capillary refill, other (DP and PT pulses 2+). Absent: tenderness, pedal edema, joint swelling, calf tenderness Back exam: Present: normal inspection Neurological exam: Present: alert, oriented X3 Psychiatric exam: Present: normal affect, normal mood Skin exam: Present: warm, dry, intact, normal color. Absent: rash Course Vital Signs 04/08/24 04/08/24 04/08/24 10:32 10:47 12:00 Temperature 98.0 F Pulse Rate 60 Pulse Rate [ 60 Marking Stitcher ] Respiratory 18 Rate Blood Pressure 103/68 114/85 O2 Sat by Pulse 100 Oximetry 04/08/24 04/08/24 04/08/24 12:20 12:30 14:03 Temperature 98.1 F Pulse Rate 48 L 64 Pulse Rate [ Marking Stitcher ] Respiratory 18 18 Rate Blood Pressure 102/73 136/85 127/90 O2 Sat by Pulse 97 97 Oximetry Medical Decision Making - Medical Decision Making Was pt. sent in by a medical professional or institution (, [facility], EMR TRAINER, urgent care, hospital, or skilled nursing...) When possible be specific @ -No Did you speak to anyone other than the patient for history (EMS, parent, family, police, friend...)? What history was obtained from this source @ -No Did you review nursing and triage notes (agree or disagree)? Why? @ -I reviewed and agree with nursing and triage notes Were old charts reviewed (outside hosp., previous admission, EMS record, old EKG, old radiological studies, urgent care reports/EKG's, skilled nursing records)? Report findings @ -No old charts were reviewed Differential Diagnosis (chest pain, altered mental status, abdominal pain women, abdominal pain men, vaginal bleeding, weakness, fever, dyspnea, syncope, headache, dizziness, GI bleed, back pain, seizure, CVA, palpatations, mental health, musculoskeletal)? @ -Not applicable EKG interpreted by me (3pts min.). @ -EKG at 1038 shows sinus bradycardia rate 57, NJ 154, QRS 87, QTQTc 449-444 X-rays interpreted by me (1pt min.). @ -Chest XR shows no acute process CT interpreted by me (1pt min.). @ -None done U/S interpreted by me (1pt. min.). @ -None done What testing was considered but not performed or refused? (CT, X-rays, U/S, labs)? Why? @ -None What meds were considered but not given or refused? Why? @ -None Did you discuss the management of the patient with other professionals (professionals i.e. , PA, EMR TRAINER, lab, RT, psych nurse, social work assistant, grain distributor, teacher, founder and chief executive officer, ed case manager)? Give summary @ -No Was smoking cessation discussed for >3mins.? @ -No Was critical care preformed (if so, how long)? @ -No Were there social determinants of health that impacted care today? How? (Homelessness, low income, unemployed, alcoholism, drug addiction, transportation, low edu. Level, literacy, decrease access to med. care, halfway, rehab)? @ -No Was there de-escalation of care discussed even if they declined (Discuss DNR or withdrawal of care, Hospice)? DNR status @ -No What co-morbidities impacted this encounter? (DM, HTN, Smoking, COPD, CAD, Can cer, CVA, ARF, Chemo, Hep., AIDS, mental health diagnosis, sleep apnea, morbid obesity)? @ -None Was patient admitted / discharged? Hospital course, mention meds given and route, prescriptions, significant lab abnormalities, going to OR and other pertinent info. @ -Discharged. Patient presented to emergency department for leg pain and hypotension at home. VSS in ED. laboratory studies obtained.CBC unremarkable, normal coagulation studies, sodium 128, corrected for hyperglycemia 135. Patient hyperglycemic with a glucose of 539. Repeat glucose 468. Patient reports that he did not take his medications today. Patient was provided 10 units SQ insulin and IV fluids. He had a negative troponin, BNP 192. UA negative for ketones. Patient reevaluated and requesting to be discharged as he has an appointment this afternoon. Patient was advised on findings. Patient stable at time of discharge. Case discussed with Dr. Stevens Undiagnosed new problem with uncertain prognosis? @ -No Drug Therapy requiring intensive monitoring for toxicity (Heparin, Nitro, Insulin, Cardizem)? @ -No Were any procedures done? @ -No Diagnosis/symptom? @ -Leg pain Acute, or Chronic, or Acute on Chronic? @ -Acute Uncomplicated (without systemic symptoms) or Complicated (systemic symptoms)? @ -Uncomplicated Side effects of treatment? @ -No Exacerbation, Progression, or Severe Exacerbation? @ -No Poses a threat to life or bodily function? How? (Chest pain, USA, MD, pneumonia, PE, COPD, DKA, ARF, appy, cholecystitis, CVA, Diverticulitis, Homicidal, Suicidal, threat to staff... and all critical care pts) @ -No - Lab Data Result diagrams: 04/08/24 11:22 04/08/24 11:22 Lab Results 04/08/24 04/08/24 04/08/24 Range/Units 11:22 11:22 11:22 WBC 9.3 (3.8-10.6) k/uL RBC 5.12 (4.30-5.90) m/uL Hgb 15.7 (13.0-17.5) gm/dL Hct 44.6 (39.0-53.0) % MCV 87.1 D (80.0-100.0) fL MCH 30.6 (25.0-35.0) pg MCHC 35.1 (31.0-37.0) g/dL RDW 14.1 (11.5-15.5) % Plt Count 189 (150-450) k/uL MPV 7.2 Neutrophils % 77 % Lymphocytes % 10 % Monocytes % 7 % Eosinophils % 3 % Basophils % 1 % Neutrophils # 7.2 (1.3-7.7) k/uL Lymphocytes # 1.0 (1.0-4.8) k/uL Monocytes # 0.6 (0-1.0) k/uL Eosinophils # 0.3 (0-0.7) k/uL Basophils # 0.1 (0-0.2) k/uL PT 11.1 (10.0-12.5) sec INR 1.0 (<1.2) APTT 27.1 (22.0-30.0) sec Sodium 128 L (137-145) mmol/L Potassium 4.8 (3.5-5.1) mmol/L Chloride 94 L (98-107) mmol/L Carbon Dioxide 26 (22-30) mmol/L Anion Gap 8 mmol/L BUN 16 (9-20) mg/dL Creatinine 0.78 (0.66-1.25) mg/dL Est GFR (CKD-EPI)AfAm >90 (>60 ml/min/1.73 sqM) Est GFR (CKD-EPI)NonAf >90 (>60 ml/min/1.73 sqM) Glucose 539 H* (74-99) mg/dL POC Glucose (mg/dL) (70-110) mg/dL POC Glu Traffic Or System Dispatcher ID Plasma Lactic Acid Zachary (0.7-2.0) mmol/L Calcium 9.2 (8.4-10.2) mg/dL Magnesium 1.8 (1.6-2.3) mg/dL Total Bilirubin 0.7 (0.2-1.3) mg/dL AST 98 H (17-59) U/L ALT 119 H (4-49) U/L Alkaline Phosphatase 115 (38-126) U/L Troponin I (0.000-0.034) ng/mL NT-Pro-B Natriuret Pep 192 pg/mL Total Protein 7.1 (6.3-8.2) g/dL Albumin 4.3 (3.5-5.0) g/dL Urine Color Urine Appearance (Clear) Urine pH (5.0-8.0) Ur Specific [place] (1.001-1.035) Urine Protein (Negative) Urine Glucose (UA) (Negative) Urine Ketones (Negative) Urine Blood (Negative) Urine Nitrite (Negative) Urine Bilirubin (Negative) Urine Urobilinogen (<2.0) mg/dL Ur Leukocyte Esterase (Negative) 04/08/24 04/08/24 04/08/24 Range/Units 11:22 11:22 12:24 WBC (3.8-10.6) k/uL RBC (4.30-5.90) m/uL Hgb (13.0-17.5) gm/dL Hct (39.0-53.0) % MCV (80.0-100.0) fL MCH (25.0-35.0) pg MCHC (31.0-37.0) g/dL RDW (11.5-15.5) % Plt Count (150-450) k/uL MPV Neutrophils % % Lymphocytes % % Monocytes % % Eosinophils % % Basophils % % Neutrophils # (1.3-7.7) k/uL Lymphocytes # (1.0-4.8) k/uL Monocytes # (0-1.0) k/uL Eosinophils # (0-0.7) k/uL Basophils # (0-0.2) k/uL PT (10.0-12.5) sec INR (<1.2) APTT (22.0-30.0) sec Sodium (137-145) mmol/L Potassium (3.5-5.1) mmol/L Chloride (98-107) mmol/L Carbon Dioxide (22-30) mmol/L Anion Gap mmol/L BUN (9-20) mg/dL Creatinine (0.66-1.25) mg/dL Est GFR (CKD-EPI)AfAm (>60 ml/min/1.73 sqM) Est GFR (CKD-EPI)NonAf (>60 ml/min/1.73 sqM) Glucose (74-99) mg/dL POC Glucose (mg/dL) 468 H (70-110) mg/dL POC Glu Traffic Or System Dispatcher ID Bev Burr Plasma Lactic Acid Zachary 1.4 (0.7-2.0) mmol/L Calcium (8.4-10.2) mg/dL Magnesium (1.6-2.3) mg/dL Total Bilirubin (0.2-1.3) mg/dL AST (17-59) U/L ALT (4-49) U/L Alkaline Phosphatase (38-126) U/L Troponin I <0.012 (0.000-0.034) ng/mL NT-Pro-B Natriuret Pep pg/mL Total Protein (6.3-8.2) g/dL Albumin (3.5-5.0) g/dL Urine Color Urine Appearance (Clear) Urine pH (5.0-8.0) Ur Specific [place] (1.001-1.035) Urine Protein (Negative) Urine Glucose (UA) (Negative) Urine Ketones (Negative) Urine Blood (Negative) Urine Nitrite (Negative) Urine Bilirubin (Negative) Urine Urobilinogen (<2.0) mg/dL Ur Leukocyte Esterase (Negative) 04/08/24 Range/Units 12:32 WBC (3.8-10.6) k/uL RBC (4.30-5.90) m/uL Hgb (13.0-17.5) gm/dL Hct (39.0-53.0) % MCV (80.0-100.0) fL MCH (25.0-35.0) pg MCHC (31.0-37.0) g/dL RDW (11.5-15.5) % Plt Count (150-450) k/uL MPV Neutrophils % % Lymphocytes % % Monocytes % % Eosinophils % % Basophils % % Neutrophils # (1.3-7.7) k/uL Lymphocytes # (1.0-4.8) k/uL Monocytes # (0-1.0) k/uL Eosinophils # (0-0.7) k/uL Basophils # (0-0.2) k/uL PT (10.0-12.5) sec INR (<1.2) APTT (22.0-30.0) sec Sodium (137-145) mmol/L Potassium (3.5-5.1) mmol/L Chloride (98-107) mmol/L Carbon Dioxide (22-30) mmol/L Anion Gap mmol/L BUN (9-20) mg/dL Creatinine (0.66-1.25) mg/dL Est GFR (CKD-EPI)AfAm (>60 ml/min/1.73 sqM) Est GFR (CKD-EPI)NonAf (>60 ml/min/1.73 sqM) Glucose (74-99) mg/dL POC Glucose (mg/dL) (70-110) mg/dL POC Glu Traffic Or System Dispatcher ID Plasma Lactic Acid Zachary (0.7-2.0) mmol/L Calcium (8.4-10.2) mg/dL Magnesium (1.6-2.3) mg/dL Total Bilirubin (0.2-1.3) mg/dL AST (17-59) U/L ALT (4-49) U/L Alkaline Phosphatase (38-126) U/L Troponin I (0.000-0.034) ng/mL NT-Pro-B Natriuret Pep pg/mL Total Protein (6.3-8.2) g/dL Albumin (3.5-5.0) g/dL Urine Color Colorless Urine Appearance Clear (Clear) Urine pH 6.5 (5.0-8.0) Ur Specific [place] 1.027 (1.001-1.035) Urine Protein Negative (Negative) Urine Glucose (UA) 4+ H (Negative) Urine Ketones Negative (Negative) Urine Blood Negative (Negative) Urine Nitrite Negative (Negative) Urine Bilirubin Negative (Negative) Urine Urobilinogen <2.0 (<2.0) mg/dL Ur Leukocyte Esterase Negative (Negative) Disposition Clinical Impression: Leg pain, Weakness Disposition: HOME SELF-CARE Condition: Stable Additional Instructions: Please follow up with your primary care provider. Return to the emergency department for new or worsening symptoms. Is patient prescribed a controlled substance at d/c from ED?: No Referrals: Prasad Veliz DO [Primary Care Provider] - 1-2 days
[2024-04-08 11:49] LABS: Basophils # (A) 0.1 k/uL (0-0.2); Basophils % (A) 1 %; Eosinophils # (A) 0.3 k/uL (0-0.7); Eosinophils % (A) 3 %; HCT 44.6 % (39.0-53.0); HGB 15.7 gm/dL (13.0-17.5); Lymphocytes % (A) 10 %; MCH 30.6 pg (25.0-35.0); MCHC 35.1 g/dL (31.0-37.0); Mean Platelet Volume 7.2; Monocytes # (A) 0.6 k/uL (0-1.0); Monocytes % (A) 7 %; Neutrophils # (A) 7.2 k/uL (1.3-7.7); Neutrophils % (A) 77 %; Platelet Count 189 k/uL (150-450); RBC 5.12 m/uL (4.30-5.90); RDW 14.1 % (11.5-15.5); WBC 9.3 k/uL (3.8-10.6)
[2024-04-08 11:51] LABS: MCV 87.1 fL (80.0-100.0)
[2024-04-08 11:55] LABS: ALT 119 U/L (4-49); AST 98 U/L (17-59); African American GFR (CKD) >90 (>60 ml/min/1.73 sqM); Albumin 4.3 g/dL (3.5-5.0); Alkaline Phosphatase 115 U/L (38-126); Anion Gap 8 mmol/L; Blood Urea Nitrogen 16 mg/dL (9-20); Calcium 9.2 mg/dL (8.4-10.2); Carbon Dioxide 26 mmol/L (22-30); Chloride 94 mmol/L (98-107); Magnesium 1.8 mg/dL (1.6-2.3); Non-African American GFR(CKD) >90 (>60 ml/min/1.73 sqM); Potassium 4.8 mmol/L (3.5-5.1); Sodium 128 mmol/L (137-145); Total Bilirubin 0.7 mg/dL (0.2-1.3); Total Protein 7.1 g/dL (6.3-8.2)
[2024-04-08 11:59] LABS: Glucose 539 mg/dL (74-99)
[2024-04-08 12:01] LABS: NT-Pro-B-Type Natriuretic Pept 192 pg/mL
--- NOTE | 2024-04-08 12:11 | XR ---
EXAMINATION TYPE: XR chest 2V DATE OF EXAM: 04/08/2024 COMPARISON: 06/16/2023 HISTORY: Weakness TECHNIQUE: Frontal and lateral views of the chest are obtained. FINDINGS: There is no focal air space opacity, pleural effusion, or pneumothorax seen. The cardiac silhouette size is within normal limits. The osseous structures are intact. IMPRESSION: No acute cardiopulmonary process. No interval change.
[2024-04-08 12:12] LABS: Partial Thromboplastin Time 27.1 sec (22.0-30.0); Prothrombin Time 11.1 sec (10.0-12.5)
[2024-04-08] MEDS: SODIUM CHLORIDE 0.9% 1,000 ML IV STA (12:26)
[2024-04-08] MEDS: INSULIN ASPART (NovoLOG) 100 UNIT/ML VIAL SQ ONE (12:26)
[2024-04-08 12:28] LABS: Glucose,Whole Blood 468 mg/dL (70-110)
[2024-04-08] MEDS: ORPHENADRINE 30 MG/ML 2 ML VIAL IVP STA (12:28)
[2024-04-08 12:50] LABS: Appearance,Urine Clear (Clear); Bilirubin,Urine Negative (Negative); Blood,Urine Negative (Negative); Color,Urine Colorless; Glucose,Urine (UA) 4+ (Negative); Ketones,Urine Negative (Negative); Leukocyte Esterase,Urine Negative (Negative); Nitrite,Urine Negative (Negative); PH, Urine 6.5 (5.0-8.0); Protein,Urine Negative (Negative); Specific Gravity,Urine 1.027 (1.001-1.035); Urobilinogen,Urine <2.0 mg/dL (<2.0)
[2024-04-08] MEDS: SODIUM CHLORIDE 0.9% 1,000 ML IV ONE (13:08)
[2024-04-08 14:05] VITALS: BP 127/90; PULSE 64; TEMP 98.1
[2024-04-08] MEDS: CYCLOBENZAPRINE 10MG STARTER 3 TAB BTL PO STA (14:05)
== END 2024-04-08 14:12 | disposition home or self-care (01) ==
LOC: EC 10:27
DX: M79.605 Pain in left leg (principal); M79.604 Pain in right leg; R53.1 Weakness; I10 Essential (primary) hypertension; F17.200 Nicotine dependence, unspecified, uncomplicated; Z88.5 Allergy status to narcotic agent; Z88.8 Allergy status to other drugs, medicaments and biological substances
CPT/HCPCS: 36415; 93005; 83880; 80053; 83605; 83735; 84484; 85025; 85610; 85730; 81003; 71046; 99285; 96374; 96361 ×2; J2360

== ENCOUNTER 2024-04-11 10:18 | Emergency (ER) | payer OTHER ==
[2024-04-11 10:32] VITALS: TEMP 97.6
--- NOTE | 2024-04-11 10:56 | ED ---
Back Pain HPI - General Chief Complaint: Back Pain/Injury Stated Complaint: Back Pain Time Seen by Provider: 04/11/24 10:34 Source: patient, RN notes reviewed Mode of arrival: ambulatory Limitations: no limitations - History of Present Illness Initial Comments: This is a 44-year-old male who presents to the emergency department for back pain. States that he has problems with chronic back pain due to arthritis which has been going on for a year. Today the pain started to flareup. States that this is in the lower back with radiation down the right leg. Denies any new injuries, loss of bowel/bladder control, or saddle anesthesia. - Related Data Home Medications Medication Instructions Recorded Confirmed Haloperidol Decanoate [Haldol D] 200 mg IM Q21D 07/31/14 03/04/24 Aspirin [Adult Low Dose Aspirin EC] 81 mg PO DAILY 12/07/19 03/04/24 Brivaracetam [Briviact] 50 mg PO BID 12/07/19 03/04/24 Levothyroxine Sodium [Synthroid] 50 mcg PO DAILY 12/07/19 03/04/24 lamoTRIgine [LaMICtal] 200 mg PO BID 12/07/19 03/04/24 lisinopriL 20 mg PO DAILY 12/07/19 03/04/24 metFORMIN HCL [Glucophage] 1,000 mg PO BID-W/MEALS 12/07/19 03/04/24 Albuterol Sulfate [Albuterol 2 puff PO RT-Q6H PRN 02/07/23 03/04/24 Sulfate Hfa] Famotidine [Pepcid] 40 mg PO BID 02/07/23 03/04/24 Fenofibrate [Lofibra] 160 mg PO DAILY 02/07/23 03/04/24 Fluticasone Propionate [Flovent 2 puff INHALATION RT-BID 02/07/23 03/04/24 Hfa 220 mcg] Gabapentin [Neurontin] 400 mg PO TID 02/07/23 03/04/24 Insulin NPH Hum/Reg Insulin Hm 18 unit SQ W/SUPPER 02/07/23 03/04/24 [humuLIN 70/30 Kwikpen] Insulin NPH Hum/Reg Insulin Hm 33 unit SQ W/BRKFST 02/07/23 03/04/24 [humuLIN 70/30 Kwikpen] OXcarbazepine [Trileptal] 150 mg PO BID 02/07/23 03/04/24 Tamsulosin HCl [Flomax] 0.4 mg PO HS 02/07/23 03/04/24 lamoTRIgine [LaMICtal] 75 mg PO BID 02/07/23 03/04/24 sitaGLIPtin [Januvia] 100 mg PO DAILY 02/07/23 03/04/24 tiZANidine [Zanaflex] 4 mg PO TID PRN 02/07/23 03/04/24 traZODone HCL 150 mg PO HS 02/07/23 03/04/24 Ferrous Sulfate [Iron (65 MG 325 mg PO DAILY 02/09/24 03/04/24 Elemental)] Metoprolol Tartrate [Lopressor] 12.5 mg PO BID 02/17/24 03/04/24 Ergocalciferol [Vitamin D2 (1250 50,000 unit PO WEEKLY 03/30/24 03/30/24 Mcg = 30618 Iu)] Previous Rx's Medication Instructions Recorded Atorvastatin [Lipitor] 80 mg PO HS #30 tab 02/13/24 Nicotine 14Mg/24Hr Patch [Habitrol] 1 patch TRANSDERM DAILY #42 patch 02/13/24 Sertraline [Zoloft] 100 mg PO DAILY #30 tab 02/13/24 metroNIDAZOLE [Flagyl] 500 mg PO TID #90 tab 02/13/24 Budesonide-Formot 160-4.5 Mcg 2 puff INHALATION RT-BID #1 each 02/21/24 [Symbicort 160-4.5 Mcg Inhaler] Collagenase [Santyl Ointment] 1 applic TOPICAL DAILY each 02/21/24 predniSONE 0 mg PO DIRECTED #20 tab 02/21/24 Cyclobenzaprine [Flexeril] 10 mg PO TID PRN #30 tab 04/11/24 Lidocaine 5% Patch [Lidoderm 5% 1 patch TOPICAL DAILY PRN #30 patch 04/11/24 Patch] predniSONE 50 mg PO DAILY 5 Days #5 tab 04/11/24 Allergies Allergy/AdvReac Type Severity Reaction Status Date / Time ketorolac [From Toradol] Allergy Abdominal Verified 04/11/24 10:32 Pain mirtazapine [From Remeron] Allergy Abdominal Verified 04/11/24 10:32 Pain pioglitazone [From Actos] Allergy Abdominal Verified 04/11/24 10:32 Pain acetaminophen AdvReac Nausea & Verified 04/11/24 10:32 [From Tylenol-Codeine #3] Vomiting codeine AdvReac Nausea & Verified 04/11/24 10:32 [From Tylenol-Codeine #3] Vomiting Review of Systems ROS Statement: Those systems with pertinent positive or pertinent negative responses have been documented in the HPI. ROS Other: All systems not noted in ROS Statement are negative. Past Medical History Past Medical History: Asthma, Chest Pain / Angina, COPD, CVA/TIA, Diabetes Mellitus, GERD/Reflux, Hyperlipidemia, Hypertension, Seizure Disorder, Skin Disorder Additional Past Medical History / Comment(s): IDDM type II, grand mal seizures, coughing from cigarettes, hemorrhoid, constipation/diarrhea, hx psoriasis, eczema, back pain, hydrocele. 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, [facility] surgery, sternum partially removed/muscle flap, lumbar puncture 10/03/23 Past Anesthesia/Blood Transfusion Reactions: No Reported Reaction Past Psychological History: Anxiety, Bipolar, Depression, Panic Disorder, Schizophrenia Smoking Status: Current every day smoker, Light tobacco smoker Past Alcohol Use History: Occasional Past Drug Use History: None Reported - Past Family History Sister(s) Family Medical History: Cancer Mother Family Medical History: Cancer Father Family Medical History: Cancer General Exam Limitations: no limitations General appearance: alert, in no apparent distress Head exam: Present: atraumatic, normocephalic, normal inspection Respiratory exam: Present: normal lung sounds bilaterally. Absent: respiratory distress, wheezes, rales, rhonchi, stridor Cardiovascular Exam: Present: regular rate, normal rhythm, normal heart sounds. Absent: systolic murmur, diastolic murmur, rubs, gallop, clicks GI/Abdominal exam: Present: soft, normal bowel sounds. Absent: distended, tenderness, guarding, rebound, rigid Back exam: Present: other (Tenderness to palpation over the lower back) Neurological exam: Present: alert, oriented X3, CN II-XII intact Psychiatric exam: Present: normal affect, normal mood Skin exam: Present: warm, dry, intact, normal color. Absent: rash Course Vital Signs 04/11/24 04/11/24 10:29 12:57 Temperature 97.6 F Pulse Rate 127 H 98 Respiratory 20 17 Rate Blood Pressure 146/101 143/107 O2 Sat by Pulse 99 98 Oximetry Medical Decision Making - Medical Decision Making This is a 44 year old male who presents to the emergency department for back pain. Was pt. sent in by a medical professional or institution? @ -No Did you speak to anyone other than the patient for history? @ -No Did you review nursing and triage notes? @ -Yes, and I agree, it is accurate with regards to the patient's symptoms. Were old charts reviewed? @ -No Differential Diagnosis? @ -Differential Back Pain: Strain, zoster, cauda equina syndrome, epidural abscess, vertebral osteomyelitis, discitis, fracture, subluxation, disc herniation, DJD, spinal stenosis, dissection, AAA, pancreatitis, peptic ulcer disease, pyelonephritis, kidney stone, this is not meant to be an all-inclusive list. EKG interpreted by me (3pts min.)? @ -Not obtained X-rays interpreted by me (1pt min.)? @ -X-ray of the lumbar spine obtained. My interpretation identifies no acute fractures. CT interpreted by me (1pt min.)? @ -Not obtained U/S interpreted by me (1pt. min.)? @ -Not obtained What testing was considered but not performed? (CT, X-rays, U/S, labs)? Why? @ -None What meds were considered but not given? Why? @ -None Did you discuss the management of the patient with other professionals? @ -No Did you reconcile home meds? @ -No Was smoking cessation discussed for >3mins.? @ -No Was critical care preformed (if so, how long)? @ -No Were there social determinants of health that impacted care today? How? (Homelessness, low income, unemployed, alcoholism, drug addiction, transportation, low edu. Level, literacy, decrease access to med. care, fdc, rehab)? @ -No Was there de-escalation of care discussed even if they declined? (Discuss DNR or withdrawal of care, Hospice)? @ -No What co-morbidities impacted this encounter? (DM, HTN, Smoking, COPD, CAD, Cancer, CVA, Hep., AIDS, mental health diagnosis, sleep apnea, morbid obesity)? @ -Osteoarthritis Was patient admitted / discharged? @ -Discharged. Urinalysis negative for signs of infection. X-ray of the lumbar spine reveals no acute process. The location of his pain with radiation down the leg is suggestive of a sciatica/lumbar radiculopathy. Pain was managed in the emergency department. He is unable to take NSAIDs and will start the patient on a 5-day course of prednisone along with Flexeril and lidocaine patches, which were all prescribed. Advised follow-up with his primary care provider for reevaluation. Case discussed with ED attending Dr. Gaston. Return precautions reviewed in depth, the patient is instructed to return to the emergency department with any new, worsening, or concerning symptoms. Patient verbalized understanding. Undiagnosed new problem with uncertain prognosis? @ -None Drug Therapy requiring intensive monitoring for toxicity (Heparin, Nitro, Insulin, Cardizem)? @ -None Were any procedures done? @ -None Diagnosis/symptom? @ -Lumbar radiculopathy Acute, or Chronic, or Acute on Chronic? @ -Acute Uncomplicated (without systemic symptoms) or Complicated (systemic symptoms)? @ -Uncomplicated Side effects of treatment? @ -None Exacerbation, Progression, or Severe Exacerbation] @ -Not applicable Poses a threat to life or bodily function? @ -No - Lab Data Lab Results 04/11/24 Range/Units 11:42 Urine Color Colorless Urine Appearance Clear (Clear) Urine pH 7.0 (5.0-8.0) Ur Specific [place] 1.009 (1.001-1.035) Urine Protein Negative (Negative) Urine Glucose (UA) 4+ H (Negative) Urine Ketones Negative (Negative) Urine Blood Negative (Negative) Urine Nitrite Negative (Negative) Urine Bilirubin Negative (Negative) Urine Urobilinogen <2.0 (<2.0) mg/dL Ur Leukocyte Esterase Negative (Negative) - Radiology Data Radiology results: report reviewed, image reviewed Disposition Clinical Impression: Strain of lumbar region, Lumbar radiculopathy, right Disposition: HOME SELF-CARE Instructions (If sedation given, give patient instructions): Low Back Strain (ED), Acute Low Back Pain (ED) Additional Instructions: Return to the emergency department with any new, worsening, or concerning symptoms. Take the prednisone daily for 5 days. Use the Flexeril up to 3 times daily, however be aware that this may you drowsy. You can also apply the lidocaine patches daily. Follow up with your primary care provider in 1-2 days. Prescriptions: Cyclobenzaprine [Flexeril] 10 mg PO TID PRN #30 tab PRN Reason: Pain RX: Lidocaine 5% Patch [Lidoderm 5% Patch] 1 patch TOPICAL DAILY PRN #30 patch PRN Reason: Pain RX: predniSONE 50 mg PO DAILY 5 Days #5 tab Is patient prescribed a controlled substance at d/c from ED?: No Referrals: Prasad Veliz, [Primary Care Provider] - 1-2 days
[2024-04-11] MEDS: HYDROmorphone 1 MG/ML 1 ML SYRINGE IVP STA ×2 (11:23→13:34)
[2024-04-11] MEDS: DEXAMETHASONE SOD PHOSPHATE 10 MG/ML 1 ML VIAL IVP STA (11:25)
[2024-04-11] MEDS: ORPHENADRINE 30 MG/ML 2 ML VIAL IVP STA (11:26)
[2024-04-11] MEDS: KETOROLAC 15 MG/ML 1 ML VIAL IVP STA (11:34)
--- NOTE | 2024-04-11 11:49 | XR ---
Lumbar spine Disc: Pain COMPARISON: None TECHNIQUE: 3 views of the lumbar spine were obtained. FINDINGS: The lumbar vertebral segments are normal in height and alignment and there is no fracture or malalign ment. The disc spaces are well preserved. Visualized sacrum and SI joints are normal. IMPRESSION: No significant abnormality seen.
[2024-04-11 12:23] LABS: Appearance,Urine Clear (Clear); Bilirubin,Urine Negative (Negative); Blood,Urine Negative (Negative); Color,Urine Colorless; Glucose,Urine (UA) 4+ (Negative); Ketones,Urine Negative (Negative); Leukocyte Esterase,Urine Negative (Negative); Nitrite,Urine Negative (Negative); Protein,Urine Negative (Negative); Specific Gravity,Urine 1.009 (1.001-1.035); Urobilinogen,Urine <2.0 mg/dL (<2.0)
[2024-04-11 12:58] VITALS: BP 143/107
[2024-04-11 13:12] VITALS: PULSE 98; RESP 17
[2024-04-11] MEDS: LIDOCAINE 4% PATCH TOPICAL ONE (13:33)
[2024-04-11] MEDS: traMADol 50 MG STARTER PACK 3 TAB BTL PO STA (13:34)
== END 2024-04-11 13:40 | disposition home or self-care (01) ==
LOC: EC 10:18
DX: S39.012A Strain of muscle, fascia and tendon of lower back, initial encounter (principal); M54.16 Radiculopathy, lumbar region; M19.90 Unspecified osteoarthritis, unspecified site; F17.200 Nicotine dependence, unspecified, uncomplicated; Z88.3 Allergy status to other anti-infective agents; Z88.5 Allergy status to narcotic agent; Z88.6 Allergy status to analgesic agent; Z88.8 Allergy status to other drugs, medicaments and biological substances; X58.XXXA Exposure to other specified factors, initial encounter
CPT/HCPCS: 81003; 72100; 99284; 96374; 96375 ×2; 96376; J1100; J2360; J1170

== ENCOUNTER 2024-04-20 13:23 | Emergency (ER) | payer OTHER ==
[2024-04-20] MEDS ORDERED: KETOROLAC 15 MG/ML 1 ML VIAL ONE (16:21)
== END 2024-04-20 16:40 | disposition home or self-care (01) ==
LOC: EC 13:23
DX: K64.9 Unspecified hemorrhoids (principal)
CPT/HCPCS: 96372; 99282

== ENCOUNTER 2024-04-29 12:02 | Emergency (ER) | payer OTHER ==
[2024-04-29] MEDS ORDERED: HYDROmorphone 1 MG/ML 1 ML SYRINGE ONE ×2 (13:35→15:31)
[2024-04-29] MEDS ORDERED: INSULIN ASPART (NovoLOG) 100 UNIT/ML VIAL SQ ONE (13:50)
[2024-04-29] MEDS ORDERED: SODIUM CHLORIDE 0.9% 500 ML BAG ONE (13:50)
== END 2024-04-29 15:53 | disposition home or self-care (01) ==
LOC: EC 12:02
DX: K62.5 Hemorrhage of anus and rectum (principal)
CPT/HCPCS: 99284 ×2; J1170

== ENCOUNTER 2024-06-24 15:32 | Emergency (ER) | payer OTHER ==
[2024-06-24 15:58] VITALS: RESP 18
[2024-06-24] MEDS: MORPHINE SULFATE 4 MG/ML SYRINGE IM STA ×2 (18:11→20:47)
[2024-06-24] MEDS: LIDOCAINE 4% PATCH TOPICAL STA (18:13)
[2024-06-24] MEDS: methylPREDNISolone SOD SUCCI 125 MG/2 ML VIAL IM ONE (18:15)
--- NOTE | 2024-06-24 19:13 | CT ---
EXAMINATION TYPE: CT lumbar spine wo con DATE OF EXAM: 06/24/2024 COMPARISON: 10/07/2023 HISTORY: 44-year-old male back pain, no injury TECHNIQUE: Contiguous axial scanning of the lumbar spine without IV contrast. Coronal and sagittal re constructions performed. CT DLP: 1006.8 mGycm Automated exposure control for dose reduction was used. FINDINGS: 4 mm nonobstructive right renal stone. A couple punctate 2 mm nonobstructive left renal calculi. Vertebral body heights are preserved and alignment is maintained. There is mild multilevel degenerative disc disease with endplate spondylosis and mild bulging discs. However, no large focal disc herniation or significant spinal canal stenosis is seen. On the left, there is minimal inferior foraminal narrowing at L4-L5. On the right, there is minimal inferior foraminal narrowing at both L2-L3 and L4-L5. No significant n euroforaminal stenosis seen. IMPRESSION: 1. MILD MULTILEVEL DEGENERATIVE DISC DISEASE. NO FOCAL DISC HERNIATION OR SIGNIFICANT SPINAL CANAL ST ENOSIS. 2. CHANGES RESULT IN MINIMAL INFERIOR FORAMINAL NARROWING ON BOTH SIDES AT L4-L5 AND ON THE RIGHT AT L2-L3. NO SIGNIFICANT NEURAL FORAMINAL STENOSIS SEEN. 3. NO VERTEBRAL COMPRESSION COLLAPSE OR MALALIGNMENT. 4. A FEW NONOBSTRUCTIVE RENAL CALCULI MEASURING UP TO 4 MM. [facility], , 06/24/2024 7:10 PM
--- NOTE | 2024-06-24 19:16 | CT ---
EXAMINATION TYPE: CT pelvis wo con DATE OF EXAM: 06/24/2024 COMPARISON: 12/26/2010 HISTORY: 44-year-old male bilateral hip pain, no injury TECHNIQUE: Contiguous axial scanning of the pelvis without IV contrast. Coronal and sagittal reconstr uctions performed. CT DLP: 329 mGycm Automated exposure control for dose reduction was used. FINDINGS: Normal appendix. There is sigmoid diverticulosis. No pericolonic inflammatory change. Prostate gland mildly enlarged at 4.4 cm wide. No abnormal fluid collection in the pelvis or lymphadenopathy. Incidental vas deferens calcifications and mild atherosclerotic calcifications throughout. There is mild degenerative spurring of both hips. The SI joints and sacrum appear intact. No acute fracture, subluxation, dislocation seen. No significant hip joint effusion are otherwise any significant soft tissue abnormality seen at the pelvis or hips. IMPRESSION: 1. MILD DEGENERATIVE SPURRING AT THE HIPS. NO ACUTE OSSEOUS ABNORMALITY SEEN. 2. VAS DEFERENS CALCIFICATIONS AND MILD ATHEROSCLEROTIC CALCIFICATIONS THROUGHOUT. UNUSUAL GIVEN URMILA ENT'S AGE. QUERY ANY UNDERLYING CHRONIC KIDNEY DISEASE OR DIABETES. 3. SIGMOID DIVERTICULOSIS WITHOUT ACUTE DIVERTICULITIS. 4. MILD PROSTATOMEGALY AT 4.4 CM WIDE. [facility], , 06/24/2024 7:14 PM
--- NOTE | 2024-06-24 20:02 | ED ---
General Adult HPI - General Chief complaint: Back Pain/Injury Stated complaint: Back Pain Time Seen by Provider: 06/24/24 17:55 Source: patient, RN notes reviewed, old records reviewed Mode of arrival: ambulatory Limitations: no limitations - History of Present Illness Initial comments: Patient is a 44-year-old male who presents emergency department complaining of chronic back pain. Has a history of known arthritis on the back and right hip denies any new acute complaints other than breakthrough pain. States his face painter as well as his PCP recommended he come here for further treatment.Denies saddle paresthesias. Denies urinary or bowel incontinence or retention. Denies lower extremity paralysis. - Related Data Home Medications Medication Instructions Recorded Confirmed Haloperidol Decanoate [Haldol D] 200 mg IM Q21D 07/31/14 03/04/24 Aspirin [Adult Low Dose Aspirin EC] 81 mg PO DAILY 12/07/19 03/04/24 Brivaracetam [Briviact] 50 mg PO BID 12/07/19 03/04/24 Levothyroxine Sodium [Synthroid] 50 mcg PO DAILY 12/07/19 03/04/24 lamoTRIgine [LaMICtal] 200 mg PO BID 12/07/19 03/04/24 lisinopriL 20 mg PO DAILY 12/07/19 03/04/24 metFORMIN HCL [Glucophage] 1,000 mg PO BID-W/MEALS 12/07/19 03/04/24 Albuterol Sulfate [Albuterol 2 puff PO RT-Q6H PRN 02/07/23 03/04/24 Sulfate Hfa] Famotidine [Pepcid] 40 mg PO BID 02/07/23 03/04/24 Fenofibrate [Lofibra] 160 mg PO DAILY 02/07/23 03/04/24 Fluticasone Propionate [Flovent 2 puff INHALATION RT-BID 02/07/23 03/04/24 Hfa 220 mcg] Gabapentin [Neurontin] 400 mg PO TID 02/07/23 03/04/24 Insulin NPH Hum/Reg Insulin Hm 18 unit SQ W/SUPPER 02/07/23 03/04/24 [humuLIN 70/30 Kwikpen] Insulin NPH Hum/Reg Insulin Hm 33 unit SQ W/BRKFST 05/26/23 06/20/24 [humuLIN 70/30 Kwikpen] OXcarbazepine [Trileptal] 150 mg PO BID 02/07/23 03/04/24 Tamsulosin HCl [Flomax] 0.4 mg PO HS 02/07/23 03/04/24 lamoTRIgine [LaMICtal] 75 mg PO BID 02/07/23 03/04/24 sitaGLIPtin [Januvia] 100 mg PO DAILY 02/07/23 03/04/24 tiZANidine [Zanaflex] 4 mg PO TID PRN 02/07/23 03/04/24 traZODone HCL 150 mg PO HS 02/07/23 03/04/24 Ferrous Sulfate [Iron (65 MG 325 mg PO DAILY 02/09/24 03/04/24 Elemental)] Metoprolol Tartrate [Lopressor] 12.5 mg PO BID 02/17/24 03/04/24 Ergocalciferol [Vitamin D2 (1250 50,000 unit PO WEEKLY 03/30/24 03/30/24 Mcg = 20262 Iu)] Previous Rx's Medication Instructions Recorded Atorvastatin [Lipitor] 80 mg PO HS #30 tab 02/13/24 Nicotine 14Mg/24Hr Patch [Habitrol] 1 patch TRANSDERM DAILY #42 patch 02/13/24 Sertraline [Zoloft] 100 mg PO DAILY #30 tab 02/13/24 metroNIDAZOLE [Flagyl] 500 mg PO TID #90 tab 02/13/24 Budesonide-Formot 160-4.5 Mcg 2 puff INHALATION RT-BID #1 each 02/21/24 [Symbicort 160-4.5 Mcg Inhaler] Collagenase [Santyl Ointment] 1 applic TOPICAL DAILY each 02/21/24 predniSONE 0 mg PO DIRECTED #20 tab 02/21/24 Cyclobenzaprine [Flexeril] 10 mg PO TID PRN #30 tab 04/11/24 Lidocaine 5% Patch [Lidoderm 5% 1 patch TOPICAL DAILY PRN #30 patch 04/11/24 Patch] predniSONE 50 mg PO DAILY 5 Days #5 tab 04/11/24 HYDROcodone/APAP 5-325MG [[place] 1 tab PO Q6HR PRN 3 Days #12 tab 06/24/24 5-325] Allergies Allergy/AdvReac Type Severity Reaction Status Date / Time ketorolac [From Toradol] Allergy Abdominal Verified 04/11/24 10:32 Pain mirtazapine [From Remeron] Allergy Abdominal Verified 04/11/24 10:32 Pain pioglitazone [From Actos] Allergy Abdominal Verified 04/11/24 10:32 Pain acetaminophen AdvReac Nausea & Verified 04/11/24 10:32 [From Tylenol-Codeine #3] Vomiting codeine AdvReac Nausea & Verified 04/11/24 10:32 [From Tylenol-Codeine #3] Vomiting Review of Systems ROS Statement: Those systems with pertinent positive or pertinent negative responses have been documented in the HPI. Review of Systems: CONST: Denies fever EYES: Denies blurry vision ENT: Denies nasal congestion C/V: Denies Chest pain RESP: Denies shortness of breath GI: Denies abdominal pain : Denies dysuria SKIN: Denies rash. MSK: Endorses back pain NEURO: Denies headache ROS Other: All systems not noted in ROS Statement are negative. Past Medical History Past Medical History: Asthma, Chest Pain / Angina, COPD, CVA/TIA, Diabetes Mellitus, GERD/Reflux, Hyperlipidemia, Hypertension, Seizure Disorder, Skin Disorder Additional Past Medical History / Comment(s): IDDM type II, grand mal seizures, coughing from cigarettes, hemorrhoid, constipation/diarrhea, hx psoriasis, eczema, back pain, hydrocele. 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 HEAD: Normal with no signs of head trauma. EYES: EOMI ENT: Hearing grossly intact RESPIRATORY: No respiratory distress C/V: Pulses 2+ intact throughout. ABD: Nondistended EXT: Normal range of motion, no obvious deformity lower midline lumbar spine tenderness to palpation. No paraspinal muscle tenderness to palpation. No step-offs or deformities of the spine. SKIN: No rashes or lesions observed on exposed skin. NEURO: Alert and oriented x 4. No focal sensory or strength deficits. Limitations: no limitations Course Vital Signs 06/24/24 06/24/24 06/24/24 15:54 18:45 20:35 Temperature 98.8 F 98 F 97.9 F Pulse Rate 98 100 101 H Respiratory 18 18 18 Rate Blood Pressure 157/100 156/102 175/100 O2 Sat by Pulse 99 98 98 Oximetry Medical Decision Making - Medical Decision Making Was pt. sent in by a medical professional or institution (ADILSON Veliz, COST MANAGER, urgent care, hospital, or long term...) When possible be specific @ -No Did you speak to anyone other than the patient for history (EMS, parent, family, police, friend...)? What history was obtained from this source @ -No Did you review nursing and triage notes (agree or disagree)? Why? @ -I reviewed and agree with nursing and triage notes Were old charts reviewed (outside hosp., previous admission, EMS record, old EKG, old radiological studies, urgent care reports/EKG's, long term records)? Report findings @ -Imaging reviewed which does show degenerative changes of the spine. Differential Diagnosis (chest pain, altered mental status, abdominal pain women, abdominal pain men, vaginal bleeding, weakness, fever, dyspnea, syncope, headache, dizziness, GI bleed, back pain, seizure, CVA, palpatations, mental health, musculoskeletal)? @ -Differential Back Pain: Strain, zoster, cauda equina syndrome, epidural abscess, vertebral osteomyelitis, discitis, fracture, subluxation, disc herniation, DJD, spinal stenosis, dissection, AAA, pancreatitis, peptic ulcer disease, pyelonephritis, kidney stone, this is not meant to be an all-inclusive list. EKG interpreted by me (3pts min.). @ -None done X-rays interpreted by me (1pt min.). @ -None done CT interpreted by me (1pt min.). @ -CT lumbar spine, CT pelvis negative for any obvious traumatic injury. Chronic degenerative changes present throughout. U/S interpreted by me (1pt. min.). @ -None done What testing was considered but not performed or refused? (CT, X-rays, U/S, labs)? Why? @ -None What meds were considered but not given or refused? Why? @ -None Did you discuss the management of the patient with other professionals (professionals i.e. , PA, COST MANAGER, lab, RT, psych nurse, social work job titles, chain splitter, teacher, county health officer, counter caser)? Give summary @ -No Was smoking cessation discussed for >3mins.? @ -No Was critical care preformed (if so, how long)? @ -No Were there social determinants of health that impacted care today? How? (Homelessness, low income, unemployed, alcoholism, drug addiction, transportation, low edu. Level, literacy, decrease access to med. care, shelter, rehab)? @ -No Was there de-escalation of care discussed even if they declined (Discuss DNR or withdrawal of care, Hospice)? DNR status @ -No What co-morbidities impacted this encounter? (DM, HTN, Smoking, COPD, CAD, Cancer, CVA, ARF, Chemo, Hep., AIDS, mental health diagnosis, sleep apnea, morbid obesity)? @ -Chronic low back pain and hip pain Was patient admitted / discharged? Hospital course, mention meds given and route, prescriptions, significant lab abnormalities, going to OR and other pertinent info. @ -Presents with acute on chronic low back pain and hip pain. No recent imaging at our facility. We will obtain CT imaging patient will be given analgesia medications. He was in agreement this plan. No concern for cauda equina syndrome at this time. Vital signs within acceptable limits. Imaging returned negative for any obvious acute process, degenerative changes are present. I discussed results with the patient. He will be given a prescription for 3 days of [place] but recommended follow-up with pain management as well as his PCP. He was in agreement this plan. I instructed the patient to follow up with their PCP in the next 1-3 days. I explained that the patient should return to the emergency department if they experience any worsening symptoms. Strict return precautions were discussed with the patient. The patient expressed understanding of these instructions. I ans wered all questions that the patient had. The patient was discharged home in good condition with their prescriptions and follow up information. Undiagnosed new problem with uncertain prognosis? @ -No Drug Therapy requiring intensive monitoring for toxicity (Heparin, Nitro, Insulin, Cardizem)? @ -No Were any procedures done? @ -No Diagnosis/symptom? @ -Chronic back pain, chronic hip pain Acute, or Chronic, or Acute on Chronic? @ -Chronic Uncomplicated (without systemic symptoms) or Complicated (systemic symptoms)? @ -Uncomplicated Side effects of treatment? @ -No Exacerbation, Progression, or Severe Exacerbation? @ -No Poses a threat to life or bodily function? How? (Chest pain, [place], [place], pneumonia, PE, COPD, DKA, ARF, appy, cholecystitis, CVA, Diverticulitis, Homicidal, Suicidal, threat to staff... and all critical care pts) @ -Unlikely Disposition Clinical Impression: Back pain, Hip pain Disposition: HOME SELF-CARE Condition: Good Instructions (If sedation given, give patient instructions): Acute Low Back Pain (ED) Prescriptions: HYDROcodone/APAP 5-325MG [[place] 5-325] 1 tab PO Q6HR PRN 3 Days #12 tab PRN Reason: Pain Is patient prescribed a controlled substance at d/c from ED?: No Referrals: Prasad Veliz DO [Primary Care Provider] - 1-2 days Time of Disposition: 20:00
[2024-06-24 20:37] VITALS: BP 175/100; PULSE 101; TEMP 97.9
== END 2024-06-24 20:51 | disposition home or self-care (01) ==
LOC: EC 15:32
CPT/HCPCS: 72131; 72192; 96372; 99284

== ENCOUNTER 2024-07-01 16:46 | Emergency (ER) | payer OTHER ==
[2024-07-01 17:01] VITALS: RESP 18; TEMP 97.9
--- NOTE | 2024-07-01 17:31 | ED ---
Back Pain HPI - General Source: patient Limitations: no limitations - History of Present Illness MD Complaint: back pain Onset/Timin -: week(s) Similar Symptoms Previously: Yes Radiation: groin, right leg Severity scale (1-10): 10 Consistency: constant <Brennan Collier - Last Filed: 07/01/24 17:28> - General Source: patient, RN notes reviewed, old records reviewed Limitations: no limitations - History of Present Illness MD Complaint: back pain -: week(s) Similar Symptoms Previously: Yes Radiation: buttocks, right leg Severity: moderate, severe Severity scale (1-10): 10 Consistency: constant Improves With: none Worsens With: none Context: other (0) Associated Symptoms: denies other symptoms <Trever Florez - Last Filed: 07/06/24 21:36> - General Chief Complaint: Back Pain/Injury Stated Complaint: Lower R hip pain, lower back pain - History of Present Illness Initial Comments: This is a 44-year-old male presenting with right low back pain (10 out of 10) x 2 weeks. Patient states pain radiates down right leg and groin. Patient endorses history of spinal arthritis and schizophrenia. Endorses use of Tylenol and aspirin. Patient denies urinary retention/incontinence or saddle paresthesia. (Brennan Collier) This is a 44-year-old male to the ER for evaluation of severe back pain history of back pain (Trever Florez) - Related Data Home Medications Medication Instructions Recorded Confirmed Haloperidol Decanoate [Haldol D] 200 mg IM Q21D 07/31/14 03/04/24 Aspirin [Adult Low Dose Aspirin EC] 81 mg PO DAILY 12/07/19 03/04/24 Brivaracetam [Briviact] 50 mg PO BID 12/07/19 03/04/24 Levothyroxine Sodium [Synthroid] 50 mcg PO DAILY 12/07/19 03/04/24 lamoTRIgine [LaMICtal] 200 mg PO BID 12/07/19 03/04/24 lisinopriL 20 mg PO DAILY 12/07/19 03/04/24 metFORMIN HCL [Glucophage] 1,000 mg PO BID-W/MEALS 12/07/19 03/04/24 Albuterol Sulfate [Albuterol 2 puff PO RT-Q6H PRN 02/07/23 03/04/24 Sulfate Hfa] Famotidine [Pepcid] 40 mg PO BID 02/07/23 03/04/24 Fenofibrate [Lofibra] 160 mg PO DAILY 02/07/23 03/04/24 Fluticasone Propionate [Flovent 2 puff INHALATION RT-BID 02/07/23 03/04/24 Hfa 220 mcg] Gabapentin [Neurontin] 400 mg PO TID 02/07/23 03/04/24 Insulin NPH Hum/Reg Insulin Hm 18 unit SQ W/SUPPER 02/07/23 03/04/24 [humuLIN 70/30 Kwikpen] Insulin NPH Hum/Reg Insulin Hm 33 unit SQ W/BRKFST 02/07/23 03/04/24 [humuLIN 70/30 Kwikpen] OXcarbazepine [Trileptal] 150 mg PO BID 02/07/23 03/04/24 Tamsulosin HCl [Flomax] 0.4 mg PO HS 02/07/23 03/04/24 lamoTRIgine [LaMICtal] 75 mg PO BID 02/07/23 03/04/24 sitaGLIPtin [Januvia] 100 mg PO DAILY 02/07/23 03/04/24 tiZANidine [Zanaflex] 4 mg PO TID PRN 02/07/23 03/04/24 traZODone HCL 150 mg PO HS 02/07/23 03/04/24 Ferrous Sulfate [Iron (65 MG 325 mg PO DAILY 02/09/24 03/04/24 Elemental)] Metoprolol Tartrate [Lopressor] 12.5 mg PO BID 02/17/24 03/04/24 Ergocalciferol [Vitamin D2 (1250 50,000 unit PO WEEKLY 03/30/24 03/30/24 Mcg = 69822 Iu)] Previous Rx's Medication Instructions Recorded Atorvastatin [Lipitor] 80 mg PO HS #30 tab 02/13/24 Nicotine 14Mg/24Hr Patch [Habitrol] 1 patch TRANSDERM DAILY #42 patch 02/13/24 Sertraline [Zoloft] 100 mg PO DAILY #30 tab 02/13/24 metroNIDAZOLE [Flagyl] 500 mg PO TID #90 tab 02/13/24 Budesonide-Formot 160-4.5 Mcg 2 puff INHALATION RT-BID #1 each 02/21/24 [Symbicort 160-4.5 Mcg Inhaler] Collagenase [Santyl Ointment] 1 applic TOPICAL DAILY each 02/21/24 predniSONE 0 mg PO DIRECTED #20 tab 02/21/24 Cyclobenzaprine [Flexeril] 10 mg PO TID PRN #30 tab 04/11/24 Lidocaine 5% Patch [Lidoderm 5% 1 patch TOPICAL DAILY PRN #30 patch 04/11/24 Patch] predniSONE 50 mg PO DAILY 5 Days #5 tab 04/11/24 HYDROcodone/APAP 5-325MG [[place] 1 tab PO Q6HR PRN 3 Days #12 tab 06/24/24 5-325] Allergies Allergy/AdvReac Type Severity Reaction Status Date / Time ketorolac [From Toradol] Allergy Abdominal Verified 04/11/24 10:32 Pain mirtazapine [From Remeron] Allergy Abdominal Verified 04/11/24 10:32 Pain pioglitazone [From Actos] Allergy Abdominal Verified 04/11/24 10:32 Pain acetaminophen AdvReac Nausea & Verified 04/11/24 10:32 [From Tylenol-Codeine #3] Vomiting codeine AdvReac Nausea & Verified 04/11/24 10:32 [From Tylenol-Codeine #3] Vomiting Review of Systems ROS Other: All systems not noted in ROS Statement are negative. <Brennan Collier - Last Filed: 07/01/24 17:28> ROS Other: All systems not noted in ROS Statement are negative. <Trever Florez - Last Filed: 07/06/24 21:36> ROS Statement: Those systems with pertinent positive or pertinent negative responses have been documented in the HPI. Past Medical History Past Medical History: Asthma, Chest Pain / Angina, COPD, CVA/TIA, Diabetes Mellitus, GERD/Reflux, Hyperlipidemia, Hypertension, Seizure Disorder, Skin Disorder Additional Past Medical History / Comment(s): IDDM type II, grand mal seizures, coughing from cigarettes, hemorrhoid, constipation/diarrhea, hx psoriasis, eczema, back pain, hydrocele. 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, [facility] foot surgery, sternum partially removed/muscle flap, lumbar puncture 10/03/23 Past Anesthesia/Blood Transfusion Reactions: No Reported Reaction Past Psychological History: Anxiety, Bipolar, Depression, Panic Disorder, Schizophrenia Smoking Status: Former smoker Past Alcohol Use History: Occasional Past Drug Use History: Marijuana - Past Family History Sister(s) Family Medical History: Cancer Mother Family Medical History: Cancer Father Family Medical History: Cancer <Brennan Collier - Last Filed: 07/01/24 17:28> General Exam Limitations: no limitations <Brennan Collier - Last Filed: 07/01/24 17:28> General appearance: alert, in no apparent distress Head exam: Present: atraumatic, normocephalic, normal inspection Eye exam: Present: normal appearance, PERRL, EOMI. Absent: scleral icterus, conjunctival injection, periorbital swelling ENT exam: Present: normal exam, mucous membranes moist Neck exam: Present: normal inspection. Absent: tenderness, meningismus, lymphadenopathy Respiratory exam: Present: normal lung sounds bilaterally. Absent: respiratory distress, wheezes, rales, rhonchi, stridor Cardiovascular Exam: Present: regular rate, normal rhythm, normal heart sounds. Absent: systolic murmur, diastolic murmur, rubs, gallop, clicks GI/Abdominal exam: Present: soft, normal bowel sounds. Absent: distended, tenderness, guarding, rebound, rigid Extremities exam: Present: normal inspection, full ROM, normal capillary refill. Absent: tenderness, pedal edema, joint swelling, calf tenderness Back exam: Present: normal inspection Neurological exam: Present: alert, oriented X3, CN II-XII intact Psychiatric exam: Present: normal affect, normal mood Skin exam: Present: warm, dry, intact, normal color. Absent: rash <Trever Florez - Last Filed: 07/06/24 21:36> - General Exam Comments Initial Comments: Visual Physical Exam Vital signs reviewed General: Well-appearing, nontoxic, no acute distress. Head: Normocephalic, atraumatic Eyes: PERRLA, EOMI ENT: Airway patent Chest: Nonlabored breathing Skin: No visual rash, normal skin tone Neuro: Alert and oriented 3 Musculoskeletal: No gross abnormalities (Brennan Collier) Course <Trever Florez - Last Filed: 07/06/24 21:36> Vital Signs 07/01/24 07/01/24 17:00 19:50 Temperature 97.9 F 97.9 F Pulse Rate 107 H 90 Respiratory 18 18 Rate Blood Pressure 136/83 128/81 O2 Sat by Pulse 98 99 Oximetry - Reevaluation(s) Reevaluation #1: 07/01/24 19:03 Medical records reviewed (Trever Florez) Reevaluation #2: 07/01/24 19:03 Patient symptoms unchanged (Trever Florez) Reevaluation #3: 07/01/24 19:03 Patient informed of results and questions answered (Trever Florez) Reevaluation #4: Was pt. sent in by a medical professional or institution (, PA, PSYCHIATRIC MENTAL HEALTH NURSE, urgent care, hospital, or fdc...) When possible be specific @ -no Did you speak to anyone other than the patient for history (EMS, parent, family, police, friend...)? What history was obtained from this source @ -no Did you review nursing and triage notes (agree or disagree)? Why? @ -agree Are old charts reviewed (outside hosp., previous admission, EMS record, old EKG, old radiological studies, urgent care reports/EKG's, fdc records)? Report findings @ -yes Differential Diagnosis (chest pain, altered mental status, abdominal pain women, abdominal pain men, vaginal bleeding, weakness, fever, dyspnea, syncope, headache, dizziness, GI bleed, back pain, seizure, CVA, palpatations, mental health, musculoskeletal)? @ -prior EKG interpreted by me (3pts min.). @ -no X-rays interpreted by me (1pt min.). @ -no CT interpreted by me (1pt min.). @ -no U/S interpreted by me (1pt. min.). @ -no What testing was considered but not performed or refused? (CT, X-rays, U/S, labs)? Why? @ -none What meds were considered but not given or refused? Why? @ -none Did you discuss the management of the patient with other professionals (professionals i.e. , PA, PSYCHIATRIC MENTAL HEALTH NURSE, lab, RT, psych nurse, forensic social worker, emergency management coordinator, teacher, police officer booking, immigration case worker)? Give summary @ -no Was smoking cessation discussed for >3mins.? @ -no Was critical care preformed (if so, how long)? @ -no Were there social determinants of health that impacted care today? How? (Homelessness, low income, unemployed, alcoholism, drug addiction, transportation, low edu. Level, literacy, decrease access to med. care, correction, rehab)? @ -none Was there de-escalation of care discussed even if they declined (Discuss DNR or withdrawal of care, Hospice)? DNR status @ -no What co-morbidities impacted this encounter? (DM, HTN, Smoking, COPD, CAD, Cancer, CVA, ARF, Chemo, Hep., AIDS, mental health diagnosis, sleep apnea, morbid obesity)? @ -none Was patient admitted / discharged? Hospital course, mention meds given and route, prescriptions, significant lab abnormalities, going to OR and other pertinent info. @ - 44 male to ER for evaluation of back pain severe back pain, patient's pain is controlled here in the ER and he can be discharged home Severe back pain uncontrolled back pain Undiagnosed new problem with uncertain prognosis? @ -no Drug Therapy requiring intensive monitoring for toxicity (Heparin, Nitro, Insulin, Cardizem)? @ -no Were any procedures done? @ -no Diagnosis/symptom? @ - Acute, or Chronic, or Acute on Chronic? @ -Acute Uncomplicated (without systemic symptoms) or Complicated (systemic symptoms)? @ -Complicated Side effects of treatment? @ -no Exacerbation, Progression, or Severe Exacerbation? @ -exacerbation Poses a threat to life or bodily function? How? (Chest pain, [place], [place], pneumonia, PE, COPD, DKA, ARF, appy, cholecystitis, CVA, Diverticulitis, Homicidal, Suicidal, threat to staff... and all critical care pts) @ -no (Trever Florez) Reevaluation #5: Differential Back Pain: Strain, zoster, cauda equina syndrome, epidural abscess, vertebral osteomyelitis, discitis, fracture, subluxation, disc herniation, DJD, spinal stenosis, dissection, AAA, pancreatitis, peptic ulcer disease, pyelonephritis, kidney stone, this is not meant to be an all-inclusive list. (Trever Florez) Medical Decision Making <Brennan Collier - Last Filed: 07/01/24 17:28> <Trever Florez - Last Filed: 07/06/24 21:36> - Medical Decision Making I completed the quick note portion of this chart signed GIO Enriquez (Brennan Collier) 44 male to ER for evaluation of back pain severe back pain, patient's pain is controlled here in the ER and he can be discharged home (Trever Florez) Disposition <Brennan Collier - Last Filed: 07/01/24 17:28> Is patient prescribed a controlled substance at d/c from ED?: No Time of Disposition: 19:00 <Trever Florez - Last Filed: 07/06/24 21:36> Clinical Impression: Back pain Disposition: HOME SELF-CARE Condition: Good Instructions (If sedation given, give patient instructions): Acute Low Back Pain (ED) Referrals: Prasad Veliz DO [Primary Care Provider] - 1-2 days
[2024-07-01] MEDS: dexAMETHasone 2 MG TAB PO STA (19:37)
[2024-07-01] MEDS: IBUPROFEN 800 MG TAB PO STA (19:39)
[2024-07-01] MEDS: traMADol 50 MG STARTER PACK 3 TAB BTL PO STA (19:39)
[2024-07-01] MEDS: IBUPROFEN 600 MG STARTER PACK 4 TAB BTL PO STA (19:39)
[2024-07-01] MEDS: LIDOCAINE 4% PATCH TOPICAL ONE (19:40)
[2024-07-01] MEDS: HYDROmorphone 1 MG/ML 1 ML SYRINGE IM STA (19:46)
[2024-07-01 19:51] VITALS: BP 128/81; PULSE 90
== END 2024-07-01 19:51 | disposition home or self-care (01) ==
LOC: EC 16:46
CPT/HCPCS: 96372; 99283

== ENCOUNTER 2024-07-23 12:40 | Inpatient (IN) | payer OTHER ==
--- NOTE | 2024-07-23 13:24 | ED ---
Recheck HPI - General Source: patient, RN notes reviewed Mode of arrival: ambulatory Limitations: no limitations <Frances Gaona - Last Filed: 07/23/24 13:23> - General Source: patient, RN notes reviewed Mode of arrival: ambulatory Limitations: no limitations <Tracee Galvan - Last Filed: 07/23/24 23:16> - General Chief Complaint: Recheck/Abnormal Lab/Rx Stated Complaint: chest pain, back pain Time Seen by Provider: 07/23/24 12:58 - History of Present Illness Initial Comments: Quick [id number] male presenting to emergency department for diffuse pain and pain management. Patient states that he has been to the emergency department multiple times for severe pain and Tylenol is not been helping at home. Denies recent falls or surgeries of the back where his pain is present (Frances Gaona) This is a 44-year-old male who presents to the emergency department for back pain and abdominal pain. Patient states that since 07/16 he has been dealing with pain in his mid back wrapping around to his epigastric region and radiating into the chest. Denies any nausea or vomiting. He does have some associated diarrhea. Patient seems to then be providing some conflicting answers. States that he wants to get admitted to figure this out as he has been to multiple hosp itals without any clear explanation. However, states that he has not been to any other hospitals since last month and he was experiencing different pain at that time. He is taking Tylenol without any relief in symptoms. He does take Zanaflex chronically. Reports having more seizures than usual lately and believes that he could have fallen and injured himself during a seizure. (Tracee Galvan) - Related Data Home Medications Medication Instructions Recorded Confirmed Haloperidol Decanoate [Haldol D] 200 mg IM Q21D 07/31/14 07/23/24 Brivaracetam [Briviact] 50 mg PO BID 12/07/19 07/23/24 Levothyroxine Sodium [Synthroid] 50 mcg PO DAILY 12/07/19 07/23/24 lamoTRIgine [LaMICtal] 200 mg PO BID 12/07/19 07/23/24 lisinopriL 20 mg PO DAILY 12/07/19 07/23/24 metFORMIN HCL [Glucophage] 1,000 mg PO BID 12/07/19 07/23/24 Albuterol Sulfate [Albuterol 2 puff INHALATION RT-Q6H PRN 02/07/23 07/23/24 Sulfate Hfa] Fluticasone Propionate [Flovent 2 puff INHALATION RT-BID 02/07/23 07/23/24 Hfa 220 mcg] Gabapentin [Neurontin] 400 mg PO TID 02/07/23 07/23/24 Insulin NPH Hum/Reg Insulin Hm 20 unit SQ W/SUPPER 02/07/23 07/23/24 [humuLIN 70/30 Kwikpen] Insulin NPH Hum/Reg Insulin Hm 40 unit SQ W/BRKFST 02/07/23 07/23/24 [humuLIN 70/30 Kwikpen] Tamsulosin HCl [Flomax] 0.4 mg PO HS 02/07/23 07/23/24 lamoTRIgine [LaMICtal] 75 mg PO BID 02/07/23 07/23/24 sitaGLIPtin [Januvia] 100 mg PO DAILY 02/07/23 07/23/24 tiZANidine [Zanaflex] 4 mg PO TID PRN 02/07/23 07/23/24 traZODone HCL 225 mg PO HS 02/07/23 07/23/24 Ferrous Sulfate [Iron (65 MG 325 mg PO DAILY 02/09/24 07/23/24 Elemental)] Ergocalciferol [Vitamin D2 (1250 1,250 unit PO FR 03/30/24 07/23/24 Mcg = 68493 Iu)] Albuterol Nebulized [Ventolin 2.5 mg INHALATION RT-TID PRN 07/23/24 07/23/24 Nebulized] Atorvastatin [Lipitor] 40 mg PO HS 07/23/24 07/23/24 Cholecalciferol [Vitamin D3 (125 125 mcg PO DAILY 07/23/24 07/23/24 Mcg = 5000 Iu)] Famotidine [Pepcid] 40 mg PO BID 07/23/24 07/23/24 HYDROcodone/APAP 5-325MG [[place] 1 tab PO Q8H PRN 07/23/24 07/23/24 5-325] Lactulose 10 gm PO BID PRN 07/23/24 07/23/24 Magnesium Oxide [Mag-Ox] 400 mg PO DAILY 07/23/24 07/23/24 Propranolol [Inderal] 20 mg PO TID 07/23/24 07/23/24 Sertraline HCl 150 mg PO DAILY 07/23/24 07/23/24 methocarbamoL [Robaxin] 1,000 mg PO TID 07/23/24 07/23/24 Previous Rx's Medication Instructions Recorded Budesonide-Formot 160-4.5 Mcg 2 puff INHALATION RT-BID #1 each 02/21/24 [Symbicort 160-4.5 Mcg Inhaler] Allergies Allergy/AdvReac Type Severity Reaction Status Date / Time ketorolac [From Toradol] Allergy Abdominal Verified 07/23/24 20:37 Pain mirtazapine [From Remeron] Allergy Abdominal Verified 07/23/24 20:37 Pain pioglitazone [From Actos] Allergy Abdominal Verified 07/23/24 20:37 Pain acetaminophen AdvReac Nausea & Verified 07/23/24 20:37 [From Tylenol-Codeine #3] Vomiting codeine AdvReac Nausea & Verified 07/23/24 20:37 [From Tylenol-Codeine #3] Vomiting Review of Systems ROS Other: All systems not noted in ROS Statement are negative. <Frances Gaona - Last Filed: 07/23/24 13:23> ROS Other: All systems not noted in ROS Statement are negative. <Tracee Galvan - Last Filed: 07/23/24 23:16> ROS Statement: Those systems with pertinent positive or pertinent negative responses have been documented in the HPI. Past Medical History Past Medical History: Asthma, Chest Pain / Angina, COPD, CVA/TIA, Diabetes Mellitus, GERD/Reflux, Hyperlipidemia, Hypertension, Seizure Disorder, Skin Disorder Additional Past Medical History / Comment(s): IDDM type II, grand mal seizures, coughing from cigarettes, hemorrhoid, constipation/diarrhea, hx psoriasis, eczema, back pain, hydrocele. 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, [facility] surgery, sternum partially removed/muscle flap, lumbar puncture 10/03/23 Past Anesthesia/Blood Transfusion Reactions: No Reported Reaction Past Psychological History: Anxiety, Bipolar, Depression, Panic Disorder, Schizophrenia Smoking Status: Former smoker Past Alcohol Use History: Occasional Past Drug Use History: Marijuana - Past Family History Sister(s) Family Medical History: Cancer Mother Family Medical History: Cancer Father Family Medical History: Cancer <Aiden Gaonaoe - Last Filed: 07/23/24 13:23> General Exam Limitations: no limitations <StiAiden shahoe - Last Filed: 07/23/24 13:23> Limitations: no limitations General appearance: alert, in no apparent distress Head exam: Present: atraumatic, normocephalic, normal inspection Respiratory exam: Present: normal lung sounds bilaterally. Absent: respiratory distress, wheezes, rales, rhonchi, stridor Cardiovascular Exam: Present: regular rate, normal rhythm, normal heart sounds. Absent: systolic murmur, diastolic murmur, rubs, gallop, clicks GI/Abdominal exam: Present: soft, tenderness (Epigastric), normal bowel sounds. Absent: distended Back exam: Present: tenderness (Mid back) Neurological exam: Present: alert, oriented X3, CN II-XII intact Psychiatric exam: Present: normal affect, normal mood Skin exam: Present: warm, dry, intact, normal color. Absent: rash <Tracee Galvan - Last Filed: 07/23/24 23:16> - General Exam Comments Initial Comments: Visual Physical Exam Vital signs reviewed General: Well-appearing, nontoxic, no acute distress. Head: Normocephalic, atraumatic Eyes: PERRLA, EOMI ENT: Airway patent Chest: Nonlabored breathing Skin: No visual rash, normal skin tone Neuro: Alert and oriented 3 Musculoskeletal: No gross abnormalities (Stieler,Frances) Course Vital Signs 07/23/24 07/23/24 07/23/24 12:46 16:47 19:33 Temperature 98.3 F 98.1 F Pulse Rate 80 80 86 Respiratory 16 20 19 Rate Blood Pressure 153/83 157/103 149/106 O2 Sat by Pulse 98 96 96 Oximetry 07/23/24 07/23/24 20:52 22:00 Temperature Pulse Rate 79 84 Respiratory 18 18 Rate Blood Pressure 153/91 149/94 O2 Sat by Pulse 96 96 Oximetry Medical Decision Making <Frances Gaona - Last Filed: 07/23/24 13:23> - Lab Data Result diagrams: 07/23/24 15:00 07/23/24 15:00 - Radiology Data Radiology results: report reviewed, image reviewed <Tracee Galvan - Last Filed: 07/23/24 23:16> - Medical Decision Making I completed the quick note portion of this chart signed Frances Gaona PA-C (Frances Gaona) This is a 44-year-old male who presents to the emergency department for back pain, chest pain, and abdominal pain. Was pt. sent in by a medical professional or institution? @ -No Did you speak to anyone other than the patient for history? @ -No Did you review nursing and triage notes? @ -Yes, and I agree, it is accurate with regards to the patient's symptoms. Were old charts reviewed? @ -No Differential Diagnosis? @ -Differential Back Pain: Strain, zoster, cauda equina syndrome, epidural abscess, vertebral osteomyelitis, discitis, fracture, subluxation, disc herniation, DJD, spinal stenosis, dissection, AAA, pancreatitis, peptic ulcer disease, pyelonephritis, kidney stone, this is not meant to be an all-inclusive list. EKG interpreted by me (3pts min.)? @ -EKG interpreted by me demonstrating the following: Sinus rhythm. Ventricular rate 66 BPM, TN interval 152 ms, QRS duration 88 ms, QTc 422 ms. X-rays interpreted by me (1pt min.)? @ -Not obtained CT interpreted by me (1pt min.)? @ -CTA of the chest obtained. My interpretation identifies no evidence of a pulmonary embolus. CT scan of the abdomen and pelvis obtained. My interpretation identifies no evidence of bowel wall thickening or free air. U/S interpreted by me (1pt. min.)? @ -Not obtained What testing was considered but not performed? (CT, X-rays, U/S, labs)? Why? @ -None What meds were considered but not given? Why? @ -None Did you discuss the management of the patient with other professionals? @ -Yes, Dr. Pantoja, who accepts the patient for admission. Did you reconcile home meds? @ -No Was smoking cessation discussed for >3mins.? @ -I discussed smoking cessation for greater than 3 minutes. The risk of smoking were discussed with the patient including but not limited to risks of cancer, stroke, coronary artery disease and COPD. Also discussed with patient were multiple methods of quitting smoking. Lastly we discussed the financial cost of smoking. Was critical care preformed (if so, how long)? @ -No Were there social determinants of health that impacted care today? How? (Homelessness, low income, unemployed, alcoholism, drug addiction, transportation, low edu. Level, literacy, decrease access to med. care, prison, rehab)? @ -No Was there de-escalation of care discussed even if they declined? (Discuss DNR or withdrawal of care, Hospice)? @ -No What co-morbidities impacted this encounter? (DM, HTN, Smoking, COPD, CAD, Cancer, CVA, Hep., AIDS, mental health diagnosis, sleep apnea, morbid obesity)? @ -Smoking, DM Was patient admitted / discharged? @ -Admitted. Lab work demonstrates mild leukocytosis with a white blood cell count of 11.6. He also has slightly decreased hemoglobin when compared to prior. D-dimer mildly elevated at 0.53. Lab work otherwise unremarkable. CTA of the chest obtained revealing no evidence of a pulmonary embolus. He does have superior endplate deformities of T6 and T8 concerning for fracture. CT scan of the abdomen and pelvis has no acute process. Patient's pain most likely musculoskeletal in nature given that it tends to start in the back with radiation into the front and noted thoracic fractures. However, case was reviewed with ED attending and patient appeared to have EKG changes and patient does admit to having pain in the chest. He was subsequently admitted to medicine for cardiac rule out as well as orthopedic consultation regarding thoracic fractures. Serial troponins ordered. Case discussed with ED attending, Dr. Albert. Undiagnosed new problem with uncertain prognosis? @ -None Drug Therapy requiring intensive monitoring for toxicity (Heparin, Nitro, Insulin, Cardizem)? @ -None Were any procedures done? @ -None Diagnosis/symptom? @ -T6 and T8 fractures, chest pain, EKG changes Acute, or Chronic, or Acute on Chronic? @ -Acute Uncomplicated (without systemic symptoms) or Complicated (systemic symptoms)? @ -Complicated Side effects of treatment? @ -None Exacerbation, Progression, or Severe Exacerbation] @ -Not applicable Poses a threat to life or bodily function? @ -Yes, patient unable to function with the pain. (Tracee Galvan) - Lab Data Lab Results 07/23/24 07/23/24 07/23/24 Range/Units 15:00 15:00 15:00 WBC 11.6 H (3.8-10.6) k/uL RBC 4.94 (4.30-5.90) m/uL Hgb 11.1 L (13.0-17.5) gm/dL Hct 37.0 L (39.0-53.0) % MCV 74.8 L (80.0-100.0) fL MCH 22.6 L (25.0-35.0) pg MCHC 30.2 L (31.0-37.0) g/dL RDW 21.4 H (11.5-15.5) % Plt Count 416 (150-450) k/uL MPV 6.6 Neutrophils % 78 % Lymphocytes % 13 % Monocytes % 4 % Eosinophils % 2 % Basophils % 0 % Neutrophils # 9.0 H (1.3-7.7) k/uL Lymphocytes # 1.5 (1.0-4.8) k/uL Monocytes # 0.5 (0-1.0) k/uL Eosinophils # 0.3 (0-0.7) k/uL Basophils # 0.0 (0-0.2) k/uL Hypochromasia Marked Anisocytosis Moderate Microcytosis Moderate D-Dimer 0.53 (<0.60) mg/L FEU Sodium 138 (137-145) mmol/L Potassium 4.5 (3.5-5.1) mmol/L Chloride 101 (98-107) mmol/L Carbon Dioxide 28 (22-30) mmol/L Anion Gap 9 mmol/L BUN 11 (9-20) mg/dL Creatinine 0.98 (0.66-1.25) mg/dL Est GFR (CKD-EPI)AfAm >90 (>60 ml/min/1.73 sqM) Est GFR (CKD-EPI)NonAf >90 (>60 ml/min/1.73 sqM) Glucose 232 H (74-99) mg/dL Plasma Lactic Acid Zachary (0.7-2.0) mmol/L Calcium 9.6 (8.4-10.2) mg/dL Magnesium 1.6 (1.6-2.3) mg/dL Total Bilirubin 0.5 (0.2-1.3) mg/dL AST 41 (17-59) U/L ALT 40 (4-49) U/L Alkaline Phosphatase 161 H (38-126) U/L Troponin I (0.000-0.034) ng/mL Total Protein 8.0 (6.3-8.2) g/dL Albumin 4.7 (3.5-5.0) g/dL Amylase 59 (30-110) U/L Lipase 87 (23-300) U/L 07/23/24 07/23/24 Range/Units 15:00 16:42 WBC (3.8-10.6) k/uL RBC (4.30-5.90) m/uL Hgb (13.0-17.5) gm/dL Hct (39.0-53.0) % MCV (80.0-100.0) fL MCH (25.0-35.0) pg MCHC (31.0-37.0) g/dL RDW (11.5-15.5) % Plt Count (150-450) k/uL MPV Neutrophils % % Lymphocytes % % Monocytes % % Eosinophils % % Basophils % % Neutrophils # (1.3-7.7) k/uL Lymphocytes # (1.0-4.8) k/uL Monocytes # (0-1.0) k/uL Eosinophils # (0-0.7) k/uL Basophils # (0-0.2) k/uL Hypochromasia Anisocytosis Microcytosis D-Dimer (<0.60) mg/L FEU Sodium (137-145) mmol/L Potassium (3.5-5.1) mmol/L Chloride (98-107) mmol/L Carbon Dioxide (22-30) mmol/L Anion Gap mmol/L BUN (9-20) mg/dL Creatinine (0.66-1.25) mg/dL Est GFR (CKD-EPI)AfAm (>60 ml/min/1.73 sqM) Est GFR (CKD-EPI)NonAf (>60 ml/min/1.73 sqM) Glucose (74-99) mg/dL Plasma Lactic Acid Zachary 1.3 (0.7-2.0) mmol/L Calcium (8.4-10.2) mg/dL Magnesium (1.6-2.3) mg/dL Total Bilirubin (0.2-1.3) mg/dL AST (17-59) U/L ALT (4-49) U/L Alkaline Phosphatase (38-126) U/L Troponin I <0.012 (0.000-0.034) ng/mL Total Protein (6.3-8.2) g/dL Albumin (3.5-5.0) g/dL Amylase (30-110) U/L Lipase (23-300) U/L Disposition <Frances Gaona - Last Filed: 07/23/24 13:23> <Tracee Galvan - Last Filed: 07/23/24 23:16> Clinical Impression: Chest pain, Acute electrocardiogram changes, Fracture of thoracic spine, Nicotine dependence Disposition: ADMITTED IP TO THIS HOSP
[2024-07-23 16:55] LABS: Anisocytosis Moderate; Basophils % (A) 0 %; Eosinophils # (A) 0.3 k/uL (0-0.7); Eosinophils % (A) 2 %; HGB 11.1 gm/dL (13.0-17.5); Hypochromasia Marked; Lymphocytes # (A) 1.5 k/uL (1.0-4.8); Lymphocytes % (A) 13 %; MCH 22.6 pg (25.0-35.0); MCHC 30.2 g/dL (31.0-37.0); MCV 74.8 fL (80.0-100.0); Mean Platelet Volume 6.6; Microcytosis Moderate; Monocytes # (A) 0.5 k/uL (0-1.0); Monocytes % (A) 4 %; Neutrophils % (A) 78 %; Platelet Count 416 k/uL (150-450); RBC 4.94 m/uL (4.30-5.90); RDW 21.4 % (11.5-15.5); WBC 11.6 k/uL (3.8-10.6)
[2024-07-23 17:10] LABS: ALT 40 U/L (4-49); AST 41 U/L (17-59); African American GFR (CKD) >90 (>60 ml/min/1.73 sqM); Albumin 4.7 g/dL (3.5-5.0); Alkaline Phosphatase 161 U/L (38-126); Amylase 59 U/L (30-110); Anion Gap 9 mmol/L; Blood Urea Nitrogen 11 mg/dL (9-20); Calcium 9.6 mg/dL (8.4-10.2); Carbon Dioxide 28 mmol/L (22-30); Chloride 101 mmol/L (98-107); Glucose 232 mg/dL (74-99); Lipase 87 U/L (23-300); Magnesium 1.6 mg/dL (1.6-2.3); Non-African American GFR(CKD) >90 (>60 ml/min/1.73 sqM); Potassium 4.5 mmol/L (3.5-5.1); Sodium 138 mmol/L (137-145); Total Bilirubin 0.5 mg/dL (0.2-1.3)
[2024-07-23] MEDS: LIDOCAINE 4% PATCH TOPICAL ONE (17:10)
[2024-07-23] MEDS: ORPHENADRINE 30 MG/ML 2 ML VIAL IVP STA (17:11)
[2024-07-23] MEDS: FAMOTIDINE 20 MG/2 ML VIAL IV STA (17:11)
[2024-07-23] MEDS: DEXAMETHASONE SOD PHOSPHATE 10 MG/ML 1 ML VIAL IVP STA (17:11)
[2024-07-23] MEDS: HYDROmorphone 1 MG/ML 1 ML SYRINGE IVP STA (17:12)
--- NOTE | 2024-07-23 17:58 | CT ---
EXAMINATION TYPE: CT angio chest DATE OF EXAM: 07/23/2024 5:37 PM COMPARISON: Chest radiograph from same day. Multiple CTs of the chest with most recent on . CLINICAL INDICATION: Male, 44 years old with history of Chest pain, abdominal pain, back pain; CP, ba ck pain, abdominal pain. TECHNIQUE/CONTRAST: CTA scan of the thorax is performed with IV Contrast, patient injected with 100ml mL of Isovue 370, M IP images are created and reviewed these are created on a separate workstation.. CT DLP: 1415.6 mGycm, Automated exposure control for dose reduction was used. FINDINGS: Pulmonary Artery: There is no evidence for a filling defect within the pulmonary vasculature to sugge st acute pulmonary embolism. The pulmonary artery is of normal size. Lungs/Pleura: No evidence of focal consolidation, pleural effusion or pneumothorax. Mild centrilobula r emphysema changes. Left lower lobe 4 mm pulmonary nodule series 411 image 109 Airway: Large airways are patent. Heart: Heart is within normal limits for size. Vasculature: No evidence of aortic aneurysm. Mediastinum: No gross evidence of adenopathy. Musculoskeletal: No acute osseous abnormalities, abnormal appearance of the sternum possibly secondar y to surgery versus congenital change. The lungs protrude into the cisternal space. Superior endplate deformities of T6 TA with cortical buckling. New from prior. Soft Tissues/lymph nodes: Unremarkable. Lower neck: No significant findings. Upper Abdomen: No significant findings. IMPRESSION: 1. No evidence of pulmonary embolism. 2. Superior endplate deformities of T6 and T8 concerning for fracture. Evaluation with MRI may be of benefit. 3. 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 4. Mild emphysema changes. 5. Left lower lobe subcentimeter pulmonary nodule. Consider follow-up imaging in one year given evide nce of emphysema. Follow up recommendations for incidental pulmonary nodules, if there are any, are per [employer] or [employer]. https://radiopaedia.org/articles/ecawwwwxgo-htljqak-ketvytgjw-xeqlvm-kzfpqlnzlmewbpw-[email or web address]?lang=us [facility], , 07/23/2024 5:56 PM
--- NOTE | 2024-07-23 18:03 | CT ---
EXAMINATION TYPE: CT abdomen pelvis w con DATE OF EXAM: 07/23/2024 5:42 PM COMPARISON: 06/24/2024 CLINICAL INDICATION: Male, 44 years old with history of Chest pain, abdominal pain, back pain; CP, ba ck pain, abdominal pain. TECHNIQUE: Axial CT abdomen pelvis w con;Sagittal and coronal reformats were created on a separate w orkstation. Contrast used:100ml mL of Isovue 370 with IV Contrast, (none if empty) Oral contrast used: without Oral Contrast (none if empty) CT DLP: Combined DLP of 1415.6 mGycm, Automated exposure control for dose reduction was used. FINDINGS: LOWER CHEST: Unremarkable ABDOMEN LIVER: Unremarkable GALLBLADDER AND BILE DUCTS: Unremarkable. PANCREAS: Unremarkable. SPLEEN: Unremarkable. ADRENAL GLANDS: Unremarkable. KIDNEYS AND URETERS: Right 3 mm nonobstructing calculus. No left renal calculi. No obstructive uropat hy. Bilateral renal cortical subcentimeter probable cysts. PELVIS BLADDER: No evidence for wall thickening or mass given limitations of exam. REPRODUCTIVE: Calcification of the vas deferens bilaterally. ABDOMEN & PELVIS STOMACH AND BOWEL: No evidence of bowel obstruction. Colonic diverticula. The appendix is normal. PERITONEUM/RETROPERITONEUM: No evidence of pneumoperitoneum or free fluid. VASCULATURE: No evidence of aortic aneurysm. MUSCULOSKELETAL: No acute osseous abnormalities LYMPH NODES: No gross evidence for lymphadenopathy. SOFT TISSUE/ABDOMINAL WALL: Unremarkable IMPRESSION: 1. No evidence for acute abdominal process. 2. Nonobstructing right renal calculus. 3. Colonic diverticulosis. [facility], , 07/23/2024 6:01 PM
[2024-07-23] MEDS ORDERED: HYDROcodone/APAP 5-325MG 1 EACH TAB PO PRN (19:28)
[2024-07-23] MEDS ORDERED: IBUPROFEN 400 MG TAB PO PRN (19:28)
[2024-07-23] MEDS ORDERED: NALOXONE 0.4 MG/ML 1 ML VIAL IV PRN (19:28)
[2024-07-23] MEDS ORDERED: ONDANSETRON 4 MG/2 ML VIAL IVP PRN (19:28)
[2024-07-23] MEDS: MELOXICAM 7.5 MG TAB PO STA (19:31)
[2024-07-23] MEDS: HYDROcodone/APAP 7.5-325MG 1 EACH TAB PO ONE (19:32)
[2024-07-23 19:42] LABS: Appearance,Urine Clear (Clear); Bilirubin,Urine Negative (Negative); Blood,Urine Negative (Negative); Color,Urine Colorless; Glucose,Urine (UA) Negative (Negative); Ketones,Urine Negative (Negative); Leukocyte Esterase,Urine Negative (Negative); Nitrite,Urine Negative (Negative); PH, Urine 6.5 (5.0-8.0); Protein,Urine Negative (Negative); Specific Gravity,Urine 1.042 (1.001-1.035); Urobilinogen,Urine <2.0 mg/dL (<2.0)
[2024-07-23] MEDS ORDERED: DEXTROSE 50% SYRINGE 50 ML IVP PRN ×2 (20:25)
--- NOTE | 2024-07-23 20:25 | P.HPIM ---
History of Present Illness H&P Date: 07/23/24 Chief Complaint: Back pain This is a [id number] patient who follows with Dr. Prasad Matthews. Chronic stable medical condition include COPD, diabetes, GERD, hyperlipidemia, essential hypertension, grand mal seizure , hemorrhoids, psoriasis, previous TIA with no residual. 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 Bipolar. Cardiac catheterization February 2024: Mild to moderate triple-vessel CAD.-Medical management Patient was seen in the ER. Presented here after having complaining of increasing back pain. Pain starts in the back and wraps around on lower part of the chest wall anteriorly. Worse in certain positions and body movement. Around July 16 patient had about 6 episodes of seizures. His sister and mother were present. Did not shift patient taken a fall. Pains been getting worse since then. Patient stopped smoking 5 months ago. At baseline has 3-4 BMs a day. Sometimes loose Review of systems: GEN.: None EYES: None HEENT: None NECK: None RESPIRATORY: None CARDIOVASCULAR: None GASTROINTESTINAL: As above GENITOURINARY: None MUSCULOSKELETAL: As above LYMPHATICS: None HEMATOLOGICAL: None PSYCHIATRY: Anxious NEUROLOGICAL: None Social history: Patient lives with his mother. Half a pack for 30 years stopped about 5 months ago. CBD oil. Alcohol occasionally Physical examination: VITAL SIGNS: 98.1, 86, 19, 149 x 106, 96% room air GENERAL: Sitting up in bed, not in distress EYES: Pupils equal. Conjunctiva chelsi l. HEENT: External appearance of nose and ears normal, oral cavity grossly normal. NECK: JVD not raised; masses not palpable. HEART: First and second heart sounds are normal; no edema. LUNGS: Respiratory rate increased l; decreased breath sounds, ABDOMEN: Soft, nontender, liver spleen not palpable, no masses palpable. PSYCH: [Alert and oriented x3; mood and affect. Anxious. MUSCULOSKELETAL:No Clubbing/cyanosis;muscles-grossly intact. Tenderness in the area of T6-T8 NEUROLOGICAL: Cranial nerves grossly intact; no facial asymmetry, power and sensation grossly intact. LYMPHATICS: No lymph nodes palpable in the axilla and neck INVESTIGATIONS, reviewed in the clinical context: July 23: White: 0.6 hemoglobin 11.1 platelets 416 sodium 138 potassium 4.5 creatinine 0.98 Troponin I less than 0.012 EKG tracing personally reviewed by me-normal sinus rhythm. Flipped T waves in inferolateral leads CT angio chest: Negative for PE. Superior endplate deformities of T6 and T8 concerning for fracture.Mild emphysema changes. Left lower lobe subcentimeter pulmonary nodule. Assessment plan: -Acute back pain in the region of T6-T8. Started on July 16. Patient had about 6 episodes of seizures. Pain present since then. Pain presently bandlike sensation going to the front of the chest. Likely radicular pain. Orthopedic spine been consulted -Chest pain on both the sides wrapped around the front likely radicular pain. G iven previous cardiac catheterization some CAD and flipped T waves we will consult cardiology Negative troponin. Telemetry h -Mild to moderate CAD per cardiac cath, February 2024 -COPD in previous smoker. Stopped smoking 5 months ago Symbicort -Diabetes mellitus type 1 on insulin Januvia. Glucophage. Insulin -Hyperlipidemia Lofibra -Hypothyroid Synthroid 50 mcg -Bipolar disorder Continue home medication -Essential hypertension Lisinopril -Epilepsy/grand mal seizures. Briviact. Trileptal -Full code Past Medical History Past Medical History: Asthma, Chest Pain / Angina, COPD, CVA/TIA, Diabetes Mellitus, GERD/Reflux, Hyperlipidemia, Hypertension, Seizure Disorder, Skin Disorder Additional Past Medical History / Comment(s): IDDM type II, grand mal seizures, coughing from cigarettes, hemorrhoid, constipation/diarrhea, hx psoriasis, eczema, back pain, hydrocele. 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, [facility] foot surgery, sternum partially removed/muscle flap, lumbar puncture 10/03/23 Past Anesthesia/Blood Transfusion Reactions: No Reported Reaction Past Psychological History: Anxiety, Bipolar, Depression, Panic Disorder, Schizophrenia Smoking Status: Former smoker Past Alcohol Use History: Occasional Past Drug Use History: Marijuana - Past Family History Sister(s) Family Medical History: Cancer Mother Family Medical History: Cancer Father Family Medical History: Cancer Medications and Allergies Home Medications Medication Instructions Recorded Confirmed Type Haloperidol Decanoate [Haldol D] 200 mg IM Q21D 07/31/14 03/04/24 History Aspirin [Adult Low Dose Aspirin EC] 81 mg PO DAILY 12/07/19 03/04/24 History Brivaracetam [Briviact] 50 mg PO BID 12/07/19 03/04/24 History Levothyroxine Sodium [Synthroid] 50 mcg PO DAILY 12/07/19 03/04/24 History lamoTRIgine [LaMICtal] 200 mg PO BID 12/07/19 03/04/24 History lisinopriL 20 mg PO DAILY 12/07/19 03/04/24 History metFORMIN HCL [Glucophage] 1,000 mg PO BID-W/MEALS 12/07/19 03/04/24 History Albuterol Sulfate [Albuterol 2 puff PO RT-Q6H PRN 02/07/23 03/04/24 History Sulfate Hfa] Famotidine [Pepcid] 40 mg PO BID 02/07/23 03/04/24 History Fenofibrate [Lofibra] 160 mg PO DAILY 02/07/23 03/04/24 History Fluticasone Propionate [Flovent 2 puff INHALATION RT-BID 02/07/23 03/04/24 History Hfa 220 mcg] Gabapentin [Neurontin] 400 mg PO TID 02/07/23 03/04/24 History Insulin NPH Hum/Reg Insulin Hm 18 unit SQ W/SUPPER 02/07/23 03/04/24 History [humuLIN 70/30 Kwikpen] Insulin NPH Hum/Reg Insulin Hm 33 unit SQ W/BRKFST 02/07/23 03/04/24 History [humuLIN 70/30 Kwikpen] OXcarbazepine [Trileptal] 150 mg PO BID 02/07/23 03/04/24 History Tamsulosin HCl [Flomax] 0.4 mg PO HS 02/07/23 03/04/24 History lamoTRIgine [LaMICtal] 75 mg PO BID 02/07/23 03/04/24 History sitaGLIPtin [Januvia] 100 mg PO DAILY 02/07/23 03/04/24 History tiZANidine [Zanaflex] 4 mg PO TID PRN 02/07/23 03/04/24 History traZODone HCL 150 mg PO HS 02/07/23 03/04/24 History Ferrous Sulfate [Iron (65 MG 325 mg PO DAILY 02/09/24 03/04/24 History Elemental)] Atorvastatin [Lipitor] 80 mg PO HS #30 tab 02/13/24 03/04/24 Rx Nicotine 14Mg/24Hr Patch [Habitrol] 1 patch TRANSDERM DAILY #42 patch 02/13/24 03/04/24 Rx Sertraline [Zoloft] 100 mg PO DAILY #30 tab 02/13/24 03/04/24 Rx metroNIDAZOLE [Flagyl] 500 mg PO TID #90 tab 02/13/24 03/04/24 Rx Metoprolol Tartrate [Lopressor] 12.5 mg PO BID 02/17/24 03/04/24 History Budesonide-Formot 160-4.5 Mcg 2 puff INHALATION RT-BID #1 each 02/21/24 03/04/24 Rx [Symbicort 160-4.5 Mcg Inhaler] Collagenase [Santyl Ointment] 1 applic TOPICAL DAILY each 02/21/24 03/04/24 Rx predniSONE 0 mg PO DIRECTED #20 tab 02/21/24 03/04/24 Rx Ergocalciferol [Vitamin D2 (1250 50,000 unit PO WEEKLY 03/30/24 03/30/24 History Mcg = 90700 Iu)] Cyclobenzaprine [Flexeril] 10 mg PO TID PRN #30 tab 04/11/24 Rx Lidocaine 5% Patch [Lidoderm 5% 1 patch TOPICAL DAILY PRN #30 patch 04/11/24 Rx Patch] predniSONE 50 mg PO DAILY 5 Days #5 tab 04/11/24 Rx HYDROcodone/APAP 5-325MG [[place] 1 tab PO Q6HR PRN 3 Days #12 tab 06/24/24 Rx 5-325] Allergies Allergy/AdvReac Type Severity Reaction Status Date / Time ketorolac [From Toradol] Allergy Abdominal Verified 07/23/24 12:48 Pain mirtazapine [From Remeron] Allergy Abdominal Verified 07/23/24 12:48 Pain pioglitazone [From Actos] Allergy Abdominal Verified 07/23/24 12:48 Pain acetaminophen AdvReac Nausea & Verified 07/23/24 12:48 [From Tylenol-Codeine #3] Vomiting codeine AdvReac Nausea & Verified 07/23/24 12:48 [From Tylenol-Codeine #3] Vomiting Physical Exam Vitals: Vital Signs Temp Pulse Resp BP Pulse Ox 07/23/24 19:33 86 19 149/106 96 07/23/24 16:47 98.1 F 80 20 157/103 96 07/23/24 12:46 98.3 F 80 16 153/83 98 Intake and Output 07/23/24 07/23/24 07/23/24 06:59 14:59 22:59 Other: Weight 78.925 kg Results CBC & Chem 7: 07/23/24 15:00 07/23/24 15:00 Labs: Abnormal Lab Results - Last 24 Hours (Table) 07/23/24 07/23/24 07/23/24 Range/Units 15:00 15:00 19:35 WBC 11.6 H (3.8-10.6) k/uL Hgb 11.1 L (13.0-17.5) gm/dL Hct 37.0 L (39.0-53.0) % MCV 74.8 L (80.0-100.0) fL MCH 22.6 L (25.0-35.0) pg MCHC 30.2 L (31.0-37.0) g/dL RDW 21.4 H (11.5-15.5) % Neutrophils # 9.0 H (1.3-7.7) k/uL Glucose 232 H (74-99) mg/dL Alkaline Phosphatase 161 H (38-126) U/L Ur Specific [place] 1.042 H (1.001-1.035)
[2024-07-23] MEDS ORDERED: LIDOCAINE 4% PATCH TOPICAL PRN (20:26)
[2024-07-23 20:51] LABS: Partial Thromboplastin Time 26.7 sec (22.0-30.0); Prothrombin Time 10.9 sec (10.0-12.5)
[2024-07-23 20:57] LABS: Glucose,Whole Blood 268 mg/dL (70-110)
[2024-07-23] MEDS: INSULIN ASPART (NovoLOG) 100 UNIT/ML VIAL SQ SCH (21:07)
[2024-07-23] MEDS: TAMSULOSIN 0.4 MG CAP.ER.24H PO SCH (21:08)
[2024-07-23] MEDS: METOPROLOL TARTRATE 12.5 MG TAB PO SCH (21:08)
[2024-07-23] MEDS: lamoTRIgine 100 MG TAB PO SCH (21:09)
[2024-07-23] MEDS: ATORVASTATIN 80 MG TAB PO SCH (21:09)
[2024-07-23] MEDS: lamoTRIgine 25 MG TAB PO SCH (21:09)
[2024-07-23] MEDS: traZODone HCL 50 MG TAB PO SCH (21:09)
[2024-07-23] MEDS: GABAPENTIN 400 MG CAP PO SCH (21:09)
[2024-07-23] MEDS: ENOXAPARIN 40 MG/0.4 ML SYRINGE SQ SCH (21:37)
[2024-07-23] MEDS: OXcarbazepine 150 MG TAB PO SCH (21:54)
[2024-07-23] MEDS: MORPHINE SULFATE 4 MG/ML SYRINGE IV PRN (23:03)
[2024-07-24] MEDS: HYDROcodone/APAP 5-325MG 1 EACH TAB PO PRN (06:13)
[2024-07-24] MEDS: LEVOTHYROXINE 50 MCG TAB PO SCH (06:14)
[2024-07-24 07:49] LABS: Glucose,Whole Blood 245 mg/dL (70-110)
[2024-07-24] MEDS: lisinopriL 20 MG TAB PO SCH (07:59)
[2024-07-24] MEDS: metFORMIN 500 MG TAB PO SCH (07:59)
[2024-07-24] MEDS: FAMOTIDINE 20 MG TAB PO SCH (07:59)
[2024-07-24] MEDS: SYMBICORT 160-4.5 MCG INHALER INHALATION SCH (08:11)
[2024-07-24] MEDS ORDERED: PANTOPRAZOLE 40 MG/10 ML VIAL IV SCH (09:00)
[2024-07-24] MEDS: FLUTICASONE 110 MCG INHALER INHALATION SCH (09:10)
[2024-07-24] MEDS: LINAGLIPTIN 5 MG TABLET PO SCH (09:17)
[2024-07-24] MEDS: SERTRALINE 100 MG TAB PO SCH (09:17)
--- NOTE | 2024-07-24 09:52 | P.CNOR ---
History of Present Illness - [facility] Consult date: 07/24/24 Consult reason: back pain History of present illness: Patient is a 44-year-old male who has multiple diagnoses and presents complaining of mid back pain. The patient says that the pain has been going on for quite a long time but has been gradually getting worse. He does not have a specific incident or trauma related to his current symptoms. He says the pain is primarily currently at the middle of his back and wrapping toward his left side at his upper chest. He says that he has history of seizures. He has significant other history of bipolar. History of his TIAs, grand mal seizures, diabetes, COPD, coronary artery disease with history of catheterization earlier this year. He says his back pain has been increasing and wraps around his chest wall primarily on the left side. He says it worsens with motion. He says he is able to get around adequately but has pain with getting around. He said he had episode of seizures last week. He denies any new weakness in his upper or lower extremities. Denies any changes to bowel bladder function. Review of Systems As stated per HPI. Denies any shortness of breath. Denies any change in bowel bladder function. Denies any loss of bowel or bladder control. Denies any new weakness in his upper or lower extremities. Positive history of seizures 1 to 2 weeks ago. He admits to smoking. His history is slightly inconsistent but he is consistent with description of the pain. Past Medical History Past Medical History: Asthma, Chest Pain / Angina, COPD, CVA/TIA, Diabetes Mellitus, GERD/Reflux, Hyperlipidemia, Hypertension, Seizure Disorder, Skin Disorder Additional Past Medical History / Comment(s): IDDM type II, grand mal seizures, coughing from cigarettes, hemorrhoid, constipation/diarrhea, hx psoriasis, eczema, back pain, hydrocele. TIA no residual issues History of Any Multi-Drug Resistant Organisms: MRSA Year Discovered:: 2019 MDRO Source:: foot Past Surgical History: Hernia Repair, Orthopedic Surgery, Tonsillectomy Additional Past Surgical History / Comment(s): Pain clinic procedures, bilateral cataract surgery, 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, [facility] foot surgery, sternum partially removed/muscle flap, lumbar puncture 10/03/23 Past Anesthesia/Blood Transfusion Reactions: No Reported Reaction Past Psychological History: Anxiety, Bipolar, Depression, Panic Disorder, Schizophrenia Smoking Status: Former smoker Past Alcohol Use History: Occasional Past Drug Use History: Marijuana - Past Family History Sister(s) Family Medical History: Cancer Mother Family Medical History: Cancer Father Family Medical History: Cancer Medications and Allergies Home Medications Medication Instructions Recorded Confirmed Type Haloperidol Decanoate [Haldol D] 200 mg IM Q21D 07/31/14 07/23/24 History Brivaracetam [Briviact] 50 mg PO BID 12/07/19 07/23/24 History Levothyroxine Sodium [Synthroid] 50 mcg PO DAILY 12/07/19 07/23/24 History lamoTRIgine [LaMICtal] 200 mg PO BID 12/07/19 07/23/24 History lisinopriL 20 mg PO DAILY 12/07/19 07/23/24 History metFORMIN HCL [Glucophage] 1,000 mg PO BID 12/07/19 07/23/24 History Albuterol Sulfate [Albuterol 2 puff INHALATION RT-Q6H PRN 02/07/23 07/23/24 History Sulfate Hfa] Fluticasone Propionate [Flovent 2 puff INHALATION RT-BID 02/07/23 07/23/24 History Hfa 220 mcg] Gabapentin [Neurontin] 400 mg PO TID 02/07/23 07/23/24 History Insulin NPH Hum/Reg Insulin Hm 20 unit SQ W/SUPPER 02/07/23 07/23/24 History [humuLIN 70/30 Kwikpen] Insulin NPH Hum/Reg Insulin Hm 40 unit SQ W/BRKFST 02/07/23 07/23/24 History [humuLIN 70/30 Kwikpen] Tamsulosin HCl [Flomax] 0.4 mg PO HS 02/07/23 07/23/24 History lamoTRIgine [LaMICtal] 75 mg PO BID 02/07/23 07/23/24 History sitaGLIPtin [Januvia] 100 mg PO DAILY 02/07/23 07/23/24 History tiZANidine [Zanaflex] 4 mg PO TID PRN 02/07/23 07/23/24 History traZODone HCL 225 mg PO HS 02/07/23 07/23/24 History Ferrous Sulfate [Iron (65 MG 325 mg PO DAILY 02/09/24 07/23/24 History Elemental)] Budesonide-Formot 160-4.5 Mcg 2 puff INHALATION RT-BID #1 each 02/21/24 07/23/24 Rx [Symbicort 160-4.5 Mcg Inhaler] Ergocalciferol [Vitamin D2 (1250 1,250 unit PO FR 03/30/24 07/23/24 History Mcg = 87696 Iu)] Albuterol Nebulized [Ventolin 2.5 mg INHALATION RT-TID PRN 07/23/24 07/23/24 His tory Nebulized] Atorvastatin [Lipitor] 40 mg PO HS 07/23/24 07/23/24 History Cholecalciferol [Vitamin D3 (125 125 mcg PO DAILY 07/23/24 07/23/24 History Mcg = 5000 Iu)] Famotidine [Pepcid] 40 mg PO BID 07/23/24 07/23/24 History HYDROcodone/APAP 5-325MG [[place] 1 tab PO Q8H PRN 07/23/24 07/23/24 History 5-325] Lactulose 10 gm PO BID PRN 07/23/24 07/23/24 History Magnesium Oxide [Mag-Ox] 400 mg PO DAILY 07/23/24 07/23/24 History Propranolol [Inderal] 20 mg PO TID 07/23/24 07/23/24 History Sertraline HCl 150 mg PO DAILY 07/23/24 07/23/24 History methocarbamoL [Robaxin] 1,000 mg PO TID 07/23/24 07/23/24 History Allergies Allergy/AdvReac Type Severity Reaction Status Date / Time ketorolac [From Toradol] Allergy Abdominal Verified 07/23/24 20:37 Pain mirtazapine [From Remeron] Allergy Abdominal Verified 07/23/24 20:37 Pain pioglitazone [From Actos] Allergy Abdominal Verified 07/23/24 20:37 Pain acetaminophen AdvReac Nausea & Verified 07/23/24 20:37 [From Tylenol-Codeine #3] Vomiting codeine AdvReac Nausea & Verified 07/23/24 20:37 [From Tylenol-Codeine #3] Vomiting Physical Examination Osteopathic Statement: *. No significant issues noted on an osteopathic structural exam other than those noted in the History and Physical/Consult. - L Spine: dermatomal strength & reflexes bilateral Strength: hip flexion: 5/5 (He has tattoos diffusely. At his mid back there is no point tenderness. He has tenderness globally around his spine and his thoracic and lumbar. There is no open wounds lacerations or abrasions. He has 5 out of 5 strength with his bilateral lower extremities throughout. No hyperreflexia. His u) Strength: hip extension: 5/5 (His upper extremities have full range of motion with 5 out of 5 strength. He has some stiffness with moving his neck but he has good motion. He is sitting up in bed rather comfortably. He is able to back and sit up.) Results - Labs Labs: Abnormal Lab Results - Last 24 Hours (Table) 07/23/24 07/23/24 07/23/24 Range/Units 15:00 15:00 19:35 WBC 11.6 H (3.8-10.6) k/uL Hgb 11.1 L (13.0-17.5) gm/dL Hct 37.0 L (39.0-53.0) % MCV 74.8 L (80.0-100.0) fL MCH 22.6 L (25.0-35.0) pg MCHC 30.2 L (31.0-37.0) g/dL RDW 21.4 H (11.5-15.5) % Neutrophils # 9.0 H (1.3-7.7) k/uL Glucose 232 H (74-99) mg/dL POC Glucose (mg/dL) (70-110) mg/dL Alkaline Phosphatase 161 H (38-126) U/L Ur Specific [place] 1.042 H (1.001-1.035) 07/23/24 07/24/24 Range/Units 20:54 07:40 WBC (3.8-10.6) k/uL Hgb (13.0-17.5) gm/dL Hct (39.0-53.0) % MCV (80.0-100.0) fL MCH (25.0-35.0) pg MCHC (31.0-37.0) g/dL RDW (11.5-15.5) % Neutrophils # (1.3-7.7) k/uL Glucose (74-99) mg/dL POC Glucose (mg/dL) 268 H 245 H (70-110) mg/dL Alkaline Phosphatase (38-126) U/L Ur Specific [place] (1.001-1.035) H & H 07/23/24 Range/Units 15:00 Hgb 11.1 L (13.0-17.5) gm/dL Hct 37.0 L (39.0-53.0) % Coagulation 07/23/24 Range/Units 20:15 INR 1.0 (<1.2) Result Diagrams: 07/23/24 15:00 07/23/24 15:00 - Diagnostic results CT Scan - lumbar: report reviewed, image reviewed (CT of the chest abdomen pelvis show some compression wedging at T6 T7-T8. To my eye they appear chronic. They are read as possible fractures. There is no other gross instability. He has some degenerative changes diffusely) Assessment and Plan Assessment: Worsening thoracic back pain Findings of wedging compression at T6 and T8 on CT scan Recent history of seizures Multiple medical history No acute neurologic deficit Plan: Worsening thoracic back pain Findings of wedging compression at T6 and T8 on CT scan Recent history of seizures Multiple medical history No acute neurologic deficit The patient has had chronic pain but has had some worsening. The CT scan report shows some wedging at T6 and T8. Is difficult to determine if this is chronic change for him or if it is new. I do not see any definitive fracture lines. He does have a recent history of grand mal seizures and is consistent with his pain at his mid thoracic spine. The MRI is recommending MRI to evaluate for the possibility of fracture and I think this is reasonable. Will go ahead and order an MRI of his thoracic spine to determine if these are acute fractures. If they are not acute fractures or compression deformities then he can continue medical management. If they do belt turner to be fractures then we should place him in a brace to see if this allows for some healing. If there is no instability he could also consider interventional pain management as he has in the past. Will order MRI of thoracic spine and have further recommendations. It is okay for him to gently mobilize and have bathroom privileges while he is here.
[2024-07-24] MEDS: INSULN ASP PRT/INSULIN ASPART 100 UNIT/ML 10 ML VIAL SQ SCH ×3 (10:53→17:30)
[2024-07-24] MEDS: CYCLOBENZAPRINE 10 MG TAB PO PRN (11:19)
[2024-07-24 12:42] LABS: Glucose,Whole Blood 203 mg/dL (70-110)
--- NOTE | 2024-07-24 12:54 | P.PN ---
Progress Note - Text Progress Note Date: 07/24/24 Chief Complaint: Back pain This is a [id number] patient who follows with Dr. Prasad Matthews. Chronic stable medical condition include COPD, diabetes, GERD, hyperlipidemia, essential hypertension, grand mal seizure , hemorrhoids, psoriasis, previous TIA with no residual. 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 Bipolar. Cardiac catheterization February 2024: Mild to moderate triple-vessel CAD.-Medical management Patient was seen in the ER. Presented here after having complaining of increasing back pain. Pain starts in the back and wraps around on lower part of the chest wall anteriorly. Worse in certain positions and body movement. Around July 16 patient had about 6 episodes of seizures. His sister and mother were present. Did not shift patient taken a fall. Pains been getting worse since then. Patient stopped smoking 5 months ago. At baseline has 3-4 BMs a day. Sometimes loose July 24: Pending MRI. Pain controlled. Tolerating a diet. Spending a cardio input. Seen by Dr. Holman from orthopedics. Active Medications Acetaminophen (Acetaminophen Tab 325 Mg Tab) 650 mg PO Q6HR PRN PRN Reason: Mild Pain or Fever > 100.5 Hydrocodone Bitart/Acetaminophen (Hydrocodone/Apap 5-325mg 1 Each Tab) 1 each PO Q6HR PRN PRN Reason: Pain Last Admin: 07/24/24 11:18 Dose: 1 each Atorvastatin Calcium (Atorvastatin 80 Mg Tab) 80 mg PO HS [facility] Last Admin: 07/23/24 21:09 Dose: 80 mg Budesonide/Formoterol Fumarate (Symbicort 160-4.5 Mcg Inhaler) 2 puff INHALATION RT-BID [facility] Last Admin: 07/24/24 08:11 Dose: 2 puff Cyclobenzaprine HCl (Cyclobenzaprine 10 Mg Tab) 10 mg PO TID PRN PRN Reason: Pain Last Admin: 07/24/24 11:19 Dose: 10 mg Dextrose/Water (Dextrose 50% Syringe 50 Ml) 25 ml IVP PER PROTOCOL PRN; Protocol PRN Reason: Hypoglycemia Dextrose/Water (Dextrose 50% Syringe 50 Ml) 50 ml IVP PER PROTOCOL PRN; Protocol PRN Reason: Hypoglycemia Enoxaparin Sodium (Enoxaparin 40 Mg/0.4 Ml Syringe) 40 mg SQ DAILY [facility] Last Admin: 07/24/24 08:00 Dose: 40 mg Famotidine (Famotidine 20 Mg Tab) 40 mg PO BID [facility] Last Admin: 07/24/24 07:59 Dose: 40 mg Gabapentin (Gabapentin 400 Mg Cap) 400 mg PO TID [facility] Last Admin: 07/24/24 07:59 Dose: 400 mg Ibuprofen (Ibuprofen 400 Mg Tab) 400 mg PO Q6HR PRN PRN Reason: Mild Pain or Fever > 100.5 Insulin Aspart (Insulin Aspart (Novolog) 100 Unit/Ml Vial) 0 unit SQ ACHS [facility]; Protocol Last Admin: 07/24/24 12:40 Dose: 4 unit Insulin Aspart (Insuln Asp Prt/Insulin Aspart 100 Unit/Ml 10 Ml Vial) 18 unit SQ W/SUPPER MARYELLEN Insulin Aspart (Insuln Asp Prt/Insulin Aspart 100 Unit/Ml 10 Ml Vial) 33 unit SQ W/BRKFST [facility] Last Admin: 07/24/24 10:53 Dose: Not Given Lamotrigine (Lamotrigine 25 Mg Tab) 75 mg PO BID [facility] Last Admin: 07/24/24 09:16 Dose: 75 mg Lamotrigine (Lamotrigine 100 Mg Tab) 200 mg PO BID [facility] Last Admin: 07/24/24 09:17 Dose: 200 mg Levothyroxine Sodium (Levothyroxine 50 Mcg Tab) 50 mcg PO 0630 [facility] Last Admin: 07/24/24 06:14 Dose: 50 mcg Lidocaine (Lidocaine 4% Patch) 1 patch TOPICAL DAILY PRN PRN Reason: Pain Linagliptin (Linagliptin 5 Mg Tablet) 5 mg PO DAILY [facility] Last Admin: 07/24/24 09:17 Dose: 5 mg Lisinopril (Lisinopril 20 Mg Tab) 20 mg PO DAILY [facility] Last Admin: 07/24/24 07:59 Dose: 20 mg Metformin HCl (Metformin 500 Mg Tab) 1,000 mg PO BID-W/MEALS [facility] Last Admin: 07/24/24 07:59 Dose: 1,000 mg Metoprolol Tartrate (Metoprolol Tartrate 12.5 Mg Tab) 12.5 mg PO BID [facility] Last Admin: 07/24/24 09:17 Dose: 12.5 mg Morphine Sulfate (Morphine Sulfate 4 Mg/Ml Syringe) 4 mg IV Q4HR PRN PRN Reason: Severe Pain (Scale 7 to 10) Last Admin: 11/09/24 09:17 Dose: 4 mg Naloxone HCl (Naloxone 0.4 Mg/Ml 1 Ml Vial) 0.2 mg IV Q2M PRN PRN Reason: Opioid Reversal Briviact ( Brivaracetam) 50 Mg Tablet 50 mg PO BID [facility] Last Admin: 07/24/24 10:53 Dose: Not Given Ondansetron HCl (Ondansetron 4 Mg/2 Ml Vial) 4 mg IVP Q8HR PRN PRN Reason: Nausea And Vomiting Oxcarbazepine (Oxcarbazepine 150 Mg Tab) 150 mg PO BID [facility] Last Admin: 07/24/24 10:54 Dose: Not Given Sertraline HCl (Sertraline 100 Mg Tab) 100 mg PO DAILY [facility] Last Admin: 07/24/24 09:17 Dose: 100 mg Tamsulosin HCl (Tamsulosin 0.4 Mg Cap.Er.24h) 0.4 mg PO HS [facility] Last Admin: 07/23/24 21:08 Dose: 0.4 mg Tizanidine HCl (Tizanidine 4 Mg Tab) 4 mg PO TID PRN PRN Reason: Pain Trazodone HCl (Trazodone Hcl 50 Mg Tab) 150 mg PO [facility] Last Admin: 07/23/24 21:09 Dose: 150 mg Social history: Patient lives with his mother. Half a pack for 30 years stopped about 5 months ago. CBD Gummies. Alcohol occasionally Physical examination: VITAL SIGNS: 98, 80, 20, 1 32/87, 98% room air GENERAL: Sitting up in bed, not in distress EYES: Pupils equal. Conjunctiva chelsi l. HEENT: External appearance of nose and ears normal, oral cavity grossly normal. NECK: JVD not raised; masses not palpable. HEART: First and second heart sounds are normal; no edema. LUNGS: Respiratory rate increased l; decreased breath sounds, ABDOMEN: Soft, nontender, liver spleen not palpable, no masses palpable. PSYCH: [Alert and oriented x3; mood and affect. Anxious. MUSCULOSKELETAL:No Clubbing/cyanosis;muscles-grossly intact. Tenderness in the area of T6-T8 NEUROLOGICAL: Cranial nerves grossly intact; no facial asymmetry, power and sensation grossly intact. INVESTIGATIONS, reviewed in the clinical context: July 23: White: 0.6 hemoglobin 11.1 platelets 416 sodium 138 potassium 4.5 creatinine 0.98 Troponin I less than 0.012 EKG tracing personally reviewed by me-normal sinus rhythm. Flipped T waves in inferolateral leads CT angio chest: Negative for PE. Superior endplate deformities of T6 and T8 concerning for fracture.Mild emphysema changes. Left lower lobe subcentimeter pulmonary nodule. Assessment plan: -Acute back pain in the region of T6-T8. Started on July 16. Patient had about 6 episodes of seizures. Pain present since then. Pain presently bandlike sensation going to the front of the chest. Likely radicular pain. Seen by Dr. Jermaine Holman from orthopedic spine. Pending MRI of the spine. -Chest pain on both the sides wrapped around the front likely radicular pain. Given previous cardiac catheterization some CAD and flipped T waves we will consult cardiology Negative troponin. Telemetry h Pending cardiology input -Mild to moderate CAD per cardiac cath, February 2024 -COPD in previous smoker. Stopped smoking 5 months ago Symbicort -Diabetes mellitus type 1 on insulin Januvia. Glucophage. Insulin -Hyperlipidemia Lofibra -Hypothyroid Synthroid 50 mcg -Bipolar disorder Continue home medication -Essential hypertension Lisinopril -Epilepsy/grand mal seizures. Briviact. Trileptal -Full code Discussed with patient. Past Medical History Past Medical History: Asthma, Chest Pain / Angina, COPD, CVA/TIA, Diabetes Mellitus, GERD/Reflux, Hyperlipidemia, Hypertension, Seizure Disorder, Skin Disorder Additional Past Medical History / Comment(s): IDDM type II, grand mal seizures, coughing from cigarettes, hemorrhoid, constipation/diarrhea, hx psoriasis, eczema, back pain, hydrocele. 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, [facility] foot surgery, sternum partially removed/muscle flap, lumbar puncture 10/03/23 Past Anesthesia/Blood Transfusion Reactions: No Reported Reaction Past Psychological History: Anxiety, Bipolar, Depression, Panic Disorder, Schizophrenia Smoking Status: Former smoker Past Alcohol Use History: Occasional Past Drug Use History: Marijuana
[2024-07-24] MEDS: tiZANidine 4 MG TAB PO PRN (15:02)
[2024-07-24 17:21] LABS: Glucose,Whole Blood 176 mg/dL (70-110)
--- NOTE | 2024-07-24 20:08 | CA ---
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 Loretta Carvajal RDCS Procedure CPT: Indications: Chest Pain Cardiac Hx: Limited for LVEF and valves Technical Quality: Good Contrast 1: Total Dose (mL): Contrast 2: Total Dose (mL): MEASUREMENTS (Male / Female) Normal Values 2D ECHO LV Diastolic Diameter PLAX 4.8 cm 4.2 - 5.9 / 3.9 - 5.3 cm LV Systolic Diameter PLAX 3.1 cm IVS Diastolic Thickness 1.0 cm 0.6 - 1.0 / 0.6 - 0.9 cm LVPW Diastolic Thickness 1.0 cm 0.6 - 1.0 / 0.6 - 0.9 cm LV Relative Wall Thickness 0.4 LVOT Diameter 2.2 cm Ascending Aorta Diameter 3.3 cm DOPPLER PV Peak Velocity 102.6 cm/s PV Peak Gradient 4.2 mmHg FINDINGS Left Ventricle Left ventricular ejection fraction is estimated at 60 %. Left ventricular cavity size normal. Left ventricular wall thickness normal. No obvious regional wall motion abnormalities. Right Ventricle Normal right ventricular size and function. Unable to estimate the right ventricular systolic pressure. Right Atrium Normal right atrial size. Left Atrium Left atrial dilatation. Mitral Valve Mitral valve thickened. No mitral regurgitation. Aortic Valve Trileaflet aortic valve. No aortic valve stenosis or regurgitation. Tricuspid Valve Structurally normal tricuspid valve. No tricuspid stenosis. Trace tricuspid regurgitation. Pulmonic Valve Structurally normal pulmonic valve. No pulmonic stenosis. No pulmonic regurgitation. Pericardium No pericardial effusion. Aorta Normal size aortic root and proximal ascending aorta. CONCLUSIONS Left ventricular ejection fraction is estimated at 60 %. No obvious regional wall motion abnormalities. Normal right ventricular size and function. No significant valvular dysfunction Mild left atrial dilatation Previewed by: Dr Rowdy Gonzalez (Electronically Signed) Final Date: 24 July 2024 20:07
[2024-07-24 21:03] LABS: Glucose,Whole Blood 196 mg/dL (70-110)
--- NOTE | 2024-07-25 07:31 | P.CRDCN ---
History of Present Illness Consult date: 07/24/24 History of present illness: HISTORY OF PRESENTING ILLNESS Patient is a 44-year-old with past medical history of COPD, type 2 diabetes, dyslipidemia, hypertension, previous TIA. Left testes removed in 2016. Sternum partially removed, bipolar disorder. Because of his recurrent chest pain he had a cardiac catheterization in February 2024 which showed mild to moderate three- vessel disease but nonobstructive. This time he presented to the hospital because of increasing back pain which would wrap around his lower part of the chest and comes anteriorly. He denies any shortness of breath or worsening palpitations or lightheadedness or dizziness. Patient also reports that he has had 6 seizure episodes [id number] before coming to the hospital. REVIEW OF SYSTEMS 14 point review of system is negative except what is mentioned above in HPI. PHYSICAL EXAMINATION Vital signs reviewed. Head: Normocephalic. Eyes: Sclerae nonicteric. Neck: Brisk carotid upstroke, no jugular venous distention. Lungs: Clear to auscultation. Heart: Regular rate and rhythm, S1-S2, no murmur or rub. Abdomen: Soft nontender, positive bowel sounds. Patient reports mild epigastric tenderness Extremities: No edema, intact distal pulses. Neuro: Alert, oritented, no focal deficits. Detailed neuro exam was not performed. Patient reports tenderness in his mid back. ASSESSMENT Suspect grand mal seizure (breakthrough seizure). Does have prior history of epilepsy. New ECG changes with diffuse deep T wave inversions, less likely cardiogenic. Could be related to seizure activity Borderline low blood pressure Mild to moderate nonobstructive CAD, cath February 2024 Acute back pain with some deformity noted on T6-T8 vertebra COPD, stable Type 1 diabetes Dyslipidemia Hypothyroid, bipolar disorder Pertinent cardiac testing Troponin x 3 were negative ECG shows sinus rhythm with deep T wave inversions in anterolateral leads. This is new when compared to the old ECG. Echocardiogram during this hospitalization showed EF of 60% with no major valvular or structural abnormality with normal wall motion PLAN Deep symmetric T wave inversions in ECG which are new are mostly related to the seizures. These ECG changes are new when compared to the older ECG. His troponin are normal and echo did not show major structural or regional wall motion abnormality which do not explain the symmetric T wave inversions. Would recommend neurological evaluation. Continue Lipitor 40mg. Asirin 81mg , Agree with low-dose beta-nenita 12.5 mg twice daily Avoid QTc prolonging medication. Patient's QTc is at the upper limit of the normal At this time patient is stable from cardiac standpoint. Rowdy Gonzalez MD, FACC, RPVI Thank you for allowing [facility] to participate in this patient's care. Feel free to reach out in case of any followup questions. Past Medical History Past Medical History: Asthma, Chest Pain / Angina, COPD, CVA/TIA, Diabetes Mellitus, GERD/Reflux, Hyperlipidemia, Hypertension, Seizure Disorder, Skin Di sorder Additional Past Medical History / Comment(s): IDDM type II, grand mal seizures, coughing from cigarettes, hemorrhoid, constipation/diarrhea, hx psoriasis, eczema, back pain, hydrocele. 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, [facility] foot surgery, sternum partially removed/muscle flap, lumbar puncture 10/03/23 Past Anesthesia/Blood Transfusion Reactions: No Reported Reaction Past Psychological History: Anxiety, Bipolar, Depression, Panic Disorder, Schizophrenia Smoking Status: Former smoker Past Alcohol Use History: Occasional Past Drug Use History: Marijuana - Past Family History Sister(s) Family Medical History: Cancer Mother Family Medical History: Cancer Father Family Medical History: Cancer Medications and Allergies Home Medications Medication Instructions Recorded Confirmed Type Haloperidol Decanoate [Haldol D] 200 mg IM Q21D 07/31/14 07/23/24 History Brivaracetam [Briviact] 50 mg PO BID 12/07/19 07/23/24 History Levothyroxine Sodium [Synthroid] 50 mcg PO DAILY 12/07/19 07/23/24 History lamoTRIgine [LaMICtal] 200 mg PO BID 12/07/19 07/23/24 History lisinopriL 20 mg PO DAILY 12/07/19 07/23/24 History metFORMIN HCL [Glucophage] 1,000 mg PO BID 12/07/19 07/23/24 History Albuterol Sulfate [Albuterol 2 puff INHALATION RT-Q6H PRN 02/07/23 07/23/24 History Sulfate Hfa] Fluticasone Propionate [Flovent 2 puff INHALATION RT-BID 02/07/23 07/23/24 History Hfa 220 mcg] Gabapentin [Neurontin] 400 mg PO TID 02/07/23 07/23/24 History Insulin NPH Hum/Reg Insulin Hm 20 unit SQ W/SUPPER 02/07/23 07/23/24 History [humuLIN 70/30 Kwikpen] Insulin NPH Hum/Reg Insulin Hm 40 unit SQ W/BRKFST 02/07/23 07/23/24 History [humuLIN 70/30 Kwikpen] Tamsulosin HCl [Flomax] 0.4 mg PO HS 02/07/23 07/23/24 History lamoTRIgine [LaMICtal] 75 mg PO BID 02/07/23 07/23/24 History sitaGLIPtin [Januvia] 100 mg PO DAILY 02/07/23 07/23/24 History tiZANidine [Zanaflex] 4 mg PO TID PRN 02/07/23 07/23/24 History traZODone HCL 225 mg PO HS 02/07/23 07/23/24 History Ferrous Sulfate [Iron (65 MG 325 mg PO DAILY 02/09/24 07/23/24 History Elemental)] Budesonide-Formot 160-4.5 Mcg 2 puff INHALATION RT-BID #1 each 02/21/24 07/23/24 Rx [Symbicort 160-4.5 Mcg Inhaler] Ergocalciferol [Vitamin D2 (1250 1,250 unit PO FR 03/30/24 07/23/24 History Mcg = 47009 Iu)] Albuterol Nebulized [Ventolin 2.5 mg INHALATION RT-TID PRN 07/23/24 07/23/24 History Nebulized] Atorvastatin [Lipitor] 40 mg PO HS 07/23/24 07/23/24 History Cholecalciferol [Vitamin D3 (125 125 mcg PO DAILY 07/23/24 07/23/24 History Mcg = 5000 Iu)] Famotidine [Pepcid] 40 mg PO BID 07/23/24 07/23/24 History HYDROcodone/APAP 5-325MG [[place] 1 tab PO Q8H PRN 07/23/24 07/23/24 History 5-325] Lactulose 10 gm PO BID PRN 07/23/24 07/23/24 History Magnesium Oxide [Mag-Ox] 400 mg PO DAILY 07/23/24 07/23/24 History Propranolol [Inderal] 20 mg PO TID 07/23/24 07/23/24 History Sertraline HCl 150 mg PO DAILY 07/23/24 07/23/24 History methocarbamoL [Robaxin] 1,000 mg PO TID 07/23/24 07/23/24 History Allergies Allergy/AdvReac Type Severity Reaction Status Date / Time ketorolac [From Toradol] Allergy Abdominal Verified 07/23/24 20:37 Pain mirtazapine [From Remeron] Allergy Abdominal Verified 07/23/24 20:37 Pain pioglitazone [From Actos] Allergy Abdominal Verified 07/23/24 20:37 Pain acetaminophen AdvReac Nausea & Verified 07/23/24 20:37 [From Tylenol-Codeine #3] Vomiting codeine AdvReac Nausea & Verified 07/23/24 20:37 [From Tylenol-Codeine #3] Vomiting Physical Exam Vitals: Vital Signs Temp Pulse Resp BP Pulse Ox 07/25/24 06:13 98.5 F 76 16 102/65 92 L 07/25/24 03:27 70 17 101/55 94 L 07/25/24 01:50 72 18 85/51 96 07/25/24 00:24 68 18 91/52 97 07/24/24 21:12 67 18 83/47 97 07/24/24 18:00 77 20 90/60 100 07/24/24 17:00 70 20 130/98 98 07/24/24 16:00 75 20 129/92 98 07/24/24 15:00 85 16 129/90 98 07/24/24 12:38 98 F 80 20 132/87 98 07/24/24 11:21 65 16 130/100 98 07/24/24 11:00 85 16 130/90 98 07/24/24 09:00 87 20 142/87 97 07/24/24 07:41 85 20 129/85 98 Results 07/23/24 15:00 07/23/24 15:00 Current Medications Generic Name Dose Route Start Last Admin Trade Name Freq PRN Reason Stop Dose Admin Acetaminophen 650 mg 07/23/24 19:28 Acetaminophen Tab 325 Mg Tab PO Q6HR PRN Mild Pain or Fever > 100.5 Hydrocodone Bitart/Acetaminophen 1 each 07/23/24 20:26 07/24/24 11:18 Hydrocodone/Apap 5-325mg 1 Each Tab PO 1 each Q6HR PRN Administration Pain Aspirin 81 mg 07/25/24 09:00 Aspirin 81 Mg PO DAILY [facility] Atorvastatin Calcium 40 mg 07/25/24 21:00 Atorvastatin 80 Mg Tab PO HS [facility] Budesonide/Formoterol Fumarate 2 puff 07/24/24 08:00 07/24/24 21:02 Symbicort 160-4.5 Mcg Inhaler INHALATION 2 puff RT-BID MARYELLEN Administration Cyclobenzaprine HCl 10 mg 07/23/24 20:26 07/24/24 11:19 Cyclobenzaprine 10 Mg Tab PO 10 mg TID PRN Administration Pain Dextrose/Water 25 ml 07/23/24 20:25 Dextrose 50% Syringe 50 Ml IVP PER PROTOCOL PRN Hypoglycemia Protocol Dextrose/Water 50 ml 07/23/24 20:25 Dextrose 50% Syringe 50 Ml IVP PER PROTOCOL PRN Hypoglycemia Protocol Enoxaparin Sodium 40 mg 07/23/24 20:30 07/24/24 08:00 Enoxaparin 40 Mg/0.4 Ml Syringe SQ 40 mg DAILY MARYELLEN Administration Famotidine 40 mg 07/24/24 09:00 07/24/24 20:17 Famotidine 20 Mg Tab PO 40 mg BID MARYELLEN Administration Gabapentin 400 mg 07/23/24 22:00 07/24/24 21:08 Gabapentin 400 Mg Cap PO 400 mg TID MARYELLEN Administration Ibuprofen 400 mg 07/23/24 19:28 Ibuprofen 400 Mg Tab PO Q6HR PRN Mild Pain or Fever > 100.5 Insulin Aspart 0 unit 07/23/24 21:00 07/24/24 21:06 Insulin Aspart (Novolog) 100 Unit/Ml Vial SQ 2 unit ACHS MARYELLEN Administration Protocol Insulin Aspart 18 unit 07/24/24 17:30 07/24/24 17:30 Insuln Asp Prt/Insulin Aspart 100 Unit/Ml 10 Ml Vial SQ 18 unit W/SUPPER MARYELLEN Administration Insulin Aspart 33 unit 07/24/24 07:30 07/24/24 10:53 Insuln Asp Prt/Insulin Aspart 100 Unit/Ml 10 Ml Vial SQ Not Given W/BRKFST MARYELLEN Insulin Aspart 16 unit 07/24/24 13:00 07/24/24 13:30 Insuln Asp Prt/Insulin Aspart 100 Unit/Ml 10 Ml Vial SQ 16 unit AC-LUNCH [facility] Administration Lamotrigine 75 mg 07/23/24 21:00 07/24/24 20:19 Lamotrigine 25 Mg Tab PO 75 mg BID MARYELLEN Administration Lamotrigine 200 mg 07/23/24 21:00 07/24/24 20:19 Lamotrigine 100 Mg Tab PO 200 mg BID [facility] Administration Levothyroxine Sodium 50 mcg 07/24/24 06:30 07/25/24 06:12 Levothyroxine 50 Mcg Tab PO 50 mcg 0630 [facility] Administration Lidocaine 1 patch 07/23/24 20:26 Lidocaine 4% Patch TOPICAL DAILY PRN Pain Linagliptin 5 mg 07/24/24 09:00 07/24/24 09:17 Linagliptin 5 Mg Tablet PO 5 mg DAILY [facility] Administration Lisinopril 20 mg 07/24/24 09:00 07/24/24 07:59 Lisinopril 20 Mg Tab PO 20 mg DAILY [facility] Administration Metformin HCl 1,000 mg 07/24/24 07:30 07/24/24 17:30 Metformin 500 Mg Tab PO 1,000 mg BID-W/MEALS [facility] Administration Metoprolol Tartrate 12.5 mg 07/23/24 21:00 07/24/24 20:17 Metoprolol Tartrate 12.5 Mg Tab PO 12.5 mg BID [facility] Administration Morphine Sulfate 4 mg 07/23/24 19:28 07/24/24 16:09 Morphine Sulfate 4 Mg/Ml Syringe IV 4 mg Q4HR PRN Administration Severe Pain (Scale 7 to 10) Naloxone HCl 0.2 mg 07/23/24 19:28 Naloxone 0.4 Mg/Ml 1 Ml Vial IV Q2M PRN Opioid Reversal Briviact ( 50 mg 07/23/24 21:00 07/24/24 21:13 Brivaracetam) 50 Mg PO Not Given Tablet BID [facility] Ondansetron HCl 4 mg 07/23/24 19:28 Ondansetron 4 Mg/2 Ml Vial IVP Q8HR PRN Nausea And Vomiting Oxcarbazepine 150 mg 07/23/24 21:00 07/24/24 20:16 Oxcarbazepine 150 Mg Tab PO 150 mg BID MARYELLEN Administration Sertraline HCl 100 mg 07/24/24 09:00 07/24/24 09:17 Sertraline 100 Mg Tab PO 100 mg DAILY MARYELLEN Administration Tamsulosin HCl 0.4 mg 07/23/24 21:00 07/24/24 20:17 Tamsulosin 0.4 Mg Cap.Er.24h PO 0.4 mg HS MARYELLEN Administration Tizanidine HCl 4 mg 07/23/24 20:26 07/24/24 15:02 Tizanidine 4 Mg Tab PO 4 mg TID PRN Administration Pain Trazodone HCl 150 mg 07/23/24 21:00 07/24/24 20:20 Trazodone Hcl 50 Mg Tab PO 150 mg HS MARYELLEN Administration 07/23/24 15:00 07/23/24 15:00
[2024-07-25] MEDS: ASPIRIN 81 MG PO SCH (09:53)
[2024-07-25 10:00] LABS: Glucose,Whole Blood 246 mg/dL (70-110)
--- NOTE | 2024-07-25 11:46 | P.PN ---
Progress Note - Text Progress Note Date: 07/25/24 The patient is seen at bedside today. He is resting comfortably. He does not have any new complaints. He still has pain at the mid thoracic area wrapping around. He denies any shortness of breath. Denies any changes in his upper or lower extremities Is afebrile stable vital signs 5 out of 5 strength bilateral upper extremities and lower extremities Diffuse tenderness throughout his back without specific crepitus or instability Assessment and plan Multiple medical issues with history of seizures and bipolar Possible T8 and T9 wedge compression deformities of thoracic spine Thoracic back pain with some radicular symptoms around his chest No apparent acute neurologic deficit Is difficult to fully determine the nature of the patient's symptoms. The T9 and T8 wedging is difficult to determine if it is fracture oriented or developmental and chronic. With the patient's symptoms I think that further workup is appropriate. Radiology suggested MRI and it has been ordered to have his thoracic spine. It is okay for him to try to mobilize in his room for bathroom privileges. Until we have a better diagnosis with the MRI I would hold off on a brace. If it is positive for fracture then we can order a TLSO. If it is negative then we could consider interventional pain management. I do not have plans for surgical intervention during this admission.
[2024-07-25 13:35] LABS: Glucose,Whole Blood 135 mg/dL (70-110)
[2024-07-25] MEDS: INSULN ASP PRT/INSULIN ASPART 100 UNIT/ML 10 ML VIAL SQ SCH (13:45)
--- NOTE | 2024-07-25 14:43 | P.CNNES ---
History of Present Illness Consult date: 07/25/24 Requesting physician: Rowdy Gonzalez Reason for Consult: suspicion of seizure? History of Present Illness: This is a 44-year-old gentleman with history of seizure, schizophrenia presented emergency department because of back pain abdominal pain. Just consulted for suspicious seizure. Seems to the patient states towards the end of June had 6 seizure-like activity and that he feels they are grand mal seizure and he is on Lamictal 275 mg twice daily, Trileptial 150mg bid as well as Briviact 50 mg twice daily. He follows up with Dr. Witt his neurologist as an outpatient and his next appointment is next week. He stated with the seizures again they are grand mal but denies any tongue bite associate with this episode, urinary or bowel incontinence. It seems that he is having back pain radiating to the chest. States he lives with his mother. Some of the workup during this hospital visit consisted of: Serum glucose is 232 Plasma lactic acid vein is 1.3. Calcium, magnesium, sodium, BUN/creatinine AST and ALT is within normal limits Review of Systems As per HPI. Past Medical History Past Medical History: Asthma, Chest Pain / Angina, COPD, CVA/TIA, Diabetes Mellitus, GERD/Reflux, Hyperlipidemia, Hypertension, Seizure Disorder, Skin Disorder Additional Past Medical History / Comment(s): IDDM type II, grand mal seizures, coughing from cigarettes, hemorrhoid, constipation/diarrhea, hx psoriasis, eczema, back pain, hydrocele. 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, [facility] foot surgery, sternum partially removed/muscle flap, lumbar puncture 10/03/23 Past Anesthesia/Blood Transfusion Reactions: No Reported Reaction Past Psychological History: Anxiety, Bipolar, Depression, Panic Disorder, Schizophrenia Additional Psychological History / Comment(s): manic depression, paranoia. Smoking Status: Former smoker Past Alcohol Use History: Occasional Additional Past Alcohol Use History / Comment(s): smoking 1/2 PPD, started smoki ng age 13 Past Drug Use History: Marijuana Additional Drug Use History / Comment(s): CBD oil - Past Family History Sister(s) Family Medical History: Cancer Mother Family Medical History: Cancer Father Family Medical History: Cancer Medications and Allergies Home Medications Medication Instructions Recorded Confirmed Type Haloperidol Decanoate [Haldol D] 200 mg IM Q21D 07/31/14 07/23/24 History Brivaracetam [Briviact] 50 mg PO BID 12/07/19 07/23/24 History Levothyroxine Sodium [Synthroid] 50 mcg PO DAILY 12/07/19 07/23/24 History lamoTRIgine [LaMICtal] 200 mg PO BID 12/07/19 07/23/24 History lisinopriL 20 mg PO DAILY 12/07/19 07/23/24 History metFORMIN HCL [Glucophage] 1,000 mg PO BID 12/07/19 07/23/24 History Albuterol Sulfate [Albuterol 2 puff INHALATION RT-Q6H PRN 02/07/23 07/23/24 History Sulfate Hfa] Fluticasone Propionate [Flovent 2 puff INHALATION RT-BID 02/07/23 07/23/24 History Hfa 220 mcg] Gabapentin [Neurontin] 400 mg PO TID 02/07/23 07/23/24 History Insulin NPH Hum/Reg Insulin Hm 20 unit SQ W/SUPPER 02/07/23 07/23/24 History [humuLIN 70/30 Kwikpen] Insulin NPH Hum/Reg Insulin Hm 40 unit SQ W/BRKFST 02/07/23 07/23/24 History [humuLIN 70/30 Kwikpen] Tamsulosin HCl [Flomax] 0.4 mg PO HS 02/07/23 07/23/24 History lamoTRIgine [LaMICtal] 75 mg PO BID 02/07/23 07/23/24 History sitaGLIPtin [Januvia] 100 mg PO DAILY 02/07/23 07/23/24 History tiZANidine [Zanaflex] 4 mg PO TID PRN 02/07/23 07/23/24 History traZODone HCL 225 mg PO HS 02/07/23 07/23/24 History Ferrous Sulfate [Iron (65 MG 325 mg PO DAILY 02/09/24 07/23/24 History Elemental)] Budesonide-Formot 160-4.5 Mcg 2 puff INHALATION RT-BID #1 each 02/21/24 07/23/24 Rx [Symbicort 160-4.5 Mcg Inhaler] Ergocalciferol [Vitamin D2 (1250 1,250 unit PO FR 03/30/24 07/23/24 History Mcg = 68666 Iu)] Albuterol Nebulized [Ventolin 2.5 mg INHALATION RT-TID PRN 07/23/24 07/23/24 History Nebulized] Atorvastatin [Lipitor] 40 mg PO HS 07/23/24 07/23/24 History Cholecalciferol [Vitamin D3 (125 125 mcg PO DAILY 07/23/24 07/23/24 History Mcg = 5000 Iu)] Famotidine [Pepcid] 40 mg PO BID 07/23/24 07/23/24 History HYDROcodone/APAP 5-325MG [[place] 1 tab PO Q8H PRN 07/23/24 07/23/24 History 5-325] Lactulose 10 gm PO BID PRN 07/23/24 07/23/24 History Magnesium Oxide [Mag-Ox] 400 mg PO DAILY 07/23/24 07/23/24 History Propranolol [Inderal] 20 mg PO TID 07/23/24 07/23/24 History Sertraline HCl 150 mg PO DAILY 07/23/24 07/23/24 History methocarbamoL [Robaxin] 1,000 mg PO TID 07/23/24 07/23/24 History Allergies Allergy/AdvReac Type Severity Reaction Status Date / Time ketorolac [From Toradol] Allergy Abdominal Verified 07/23/24 20:37 Pain mirtazapine [From Remeron] Allergy Abdominal Verified 07/23/24 20:37 Pain pioglitazone [From Actos] Allergy Abdominal Verified 07/23/24 20:37 Pain acetaminophen AdvReac Nausea & Verified 07/23/24 20:37 [From Tylenol-Codeine #3] Vomiting codeine AdvReac Nausea & Verified 07/23/24 20:37 [From Tylenol-Codeine #3] Vomiting Physical Examination - Vital Signs Vital Signs: Vital Signs Temp Pulse Pulse Resp BP BP Pulse Ox 07/25/24 12:47 69 16 102/65 07/25/24 08:00 16 07/25/24 07:45 98.1 F 84 16 93/56 93 L 07/25/24 06:13 98.5 F 76 16 102/65 92 L 07/25/24 03:27 70 17 101/55 94 L 07/25/24 01:50 72 18 85/51 96 07/25/24 00:24 68 18 91/52 97 07/24/24 21:12 67 18 83/47 97 07/24/24 18:00 77 20 90/60 100 07/24/24 17:00 70 20 130/98 98 07/24/24 16:00 75 20 129/92 98 07/24/24 15:00 85 16 129/90 98 Intake and Output 07/24/24 07/25/24 07/25/24 22:59 06:59 14:59 Intake Total 236 Balance 236 Intake: Oral 236 Other: Voiding Method Toilet Weight 78.925 kg GENERAL: The patient is lying in bed and is not in acute distress. NEUROLOGICAL: Higher mental function: The patient is awake, alert, oriented to self, place and time. Patient is following commands. No aphasia and no neglect. Cranial nerves: The pupils are round, equal and reactive to light and accommodation. Visual conley are full to confrontation throughout. Extraocular movement is intact no nystagmus is noted. Facial sensation is normal to touch throughout. The facial strength is normal throughout. Hearing is normal bilaterally to hand rub. Tongue is midline and moved [id number] without any difficulty. No dysarthria is noted. Shoulder shrug is normal bilaterally. Motor: The strength is limited in uppers because of pain but has 4+ while lowers are 5/5. Normal tone and bulk. Cerebellum: Normal finger to nose heel to chin bilaterally. Sensation: Sensation is normal to touch throughout. Reflexes (right/left): 2+ throughout. Plantars are mute bilaterally. Results - Laboratory Findings CBC and BMP: 07/23/24 15:00 07/23/24 15:00 Abnormal Lab Findings: Abnormal Labs 07/23/24 07/23/24 07/23/24 15:00 15:00 19:35 WBC 11.6 H Hgb 11.1 L Hct 37.0 L MCV 74.8 L MCH 22.6 L MCHC 30.2 L RDW 21.4 H Neutrophils # 9.0 H Glucose 232 H POC Glucose (mg/dL) Alkaline Phosphatase 161 H Ur Specific [place] 1.042 H 07/23/24 07/24/24 07/24/24 20:54 07:40 12:37 WBC Hgb Hct MCV MCH MCHC RDW Neutrophils # Glucose POC Glucose (mg/dL) 268 H 245 H 203 H Alkaline Phosphatase Ur Specific [place] 07/24/24 07/24/24 07/25/24 17:19 21:02 09:57 WBC Hgb Hct MCV MCH MCHC RDW Neutrophils # Glucose POC Glucose (mg/dL) 176 H 196 H 246 H Alkaline Phosphatase Ur Specific [place] 07/25/24 13:33 WBC Hgb Hct MCV MCH MCHC RDW Neutrophils # Glucose POC Glucose (mg/dL) 135 H Alkaline Phosphatase Ur Specific [place] Assessment and Plan Assessment: This is a 44-year-old gentleman with history of seizure and is on Lamictal, Trileptial and Briviact who presents to hospital because of pain, chest pain and abdominal pain. Neurology is consulted for seizure. It seems towards the end of June he had 6 seizure-like activity and he stated they are grand mal seizure. Back pain T6 and T8 fracture Abdominal pain Diverticulosis Breakthrough seizure towards end of June 2024. Unsure if seizure are not controlled. History of seizure and is on Lamictal, Trileptal and Brivact Plan: Ordered CT of the head and CT cervical spine Ordered routine EEG. Patient is on Lamictal 275 mg twice daily and Briviact 50 mg twice daily. Patient is also on Trileptal 150 mg twice daily. I will go up on the Briviact to 100 mg twice daily. Ordered Lamictal and Trileptal level. If routine EEG is negative for seizure discharges recommend a prolonged EEG/Epilepsy Monitoring Unit as an outpatient to capture his events. seizure precaution and pads Per [facility] because of the seizure, to avoid driving for 6 months until seizure-free, avoid heights, avoid swimming consider or using heavy machinery Patient is on gabapentin 400 mg 3 times daily as well as is on Flexeril 10 mg 3 times daily as needed. Cardiology is consulted Orthopedic surgery team is consulted Will defer the rest of the medical management to primary other specialist The patient was notified to follow-up with his neurologist (Dr. Murrieta) and has appointment next week. The plan is discussed with patient and his nurse. Thank you for the consultation. Dr. Davis will resume neurology service tomorrow A.M. Time with Patient: Greater than 30
[2024-07-25 17:17] LABS: Glucose,Whole Blood 153 mg/dL (70-110)
--- NOTE | 2024-07-25 17:30 | CT ---
EXAMINATION TYPE: CT brain cspine wo con DATE OF EXAM: 07/25/2024 5:06 PM COMPARISON: 02/08/2023. CLINICAL INDICATION: Male, 44 years old with history of seizure; seizure TECHNIQUE: Brain: Multiple axial CT images of the brain were obtained without IV contrast. Cspine: Axial CT images from the skull base to the inferior aspect of T2 we obtained without intraven ous contrast. Coronal and sagittal reformatted images were also reviewed. . CT DLP: 1526.5 mGycm, Automated exposure control for dose reduction was used. FINDINGS: Brain: Extra-axial spaces: No abnormal extra-axial fluid collections. Ventricular system: Within normal limits Cerebral parenchyma: Remote left basal ganglia lacunar injury. No acute intraparenchymal hemorrhage o r mass effect. The darby-white junction is well differentiated. Cerebellum: Unremarkable. Mass effect: No evidence of midline shift. Intracranial vasculature: Atherosclerotic calcifications of the intracranial vessels. Soft tissues: Normal. Calvarium/osseous structures: No depressed skull fracture. Paranasal sinuses and mastoid air cells: Clear. Visualized orbits: Bilateral aphakia Cervical spine: Fracture: None. Osseous structures: Minimal osteophyte formation and facet and uncovertebral joint arthropathy throug hout the visualized spine. the left posterior rib on injury. Vertebral alignment: Within normal limits. Spinal canal/Neural Foramina: No evidence of significant spinal canal narrowing. No evidence for sign ificant neural foraminal stenosis. Neck soft tissues: Prevertebral soft tissues are within normal limits. Other: The airway is patent. The lung apices are clear. IMPRESSION: 1. No acute intracranial process. 2. Similar remote left basal ganglia lacunar injury. 3. No evidence of cervical spine fracture. 4. Mild multilevel degenerative disc disease. [facility], , 07/25/2024 5:27 PM
[2024-07-25 19:45] LABS: Glucose,Whole Blood 127 mg/dL (70-110)
[2024-07-25] MEDS: ATORVASTATIN 40 MG TAB PO SCH (20:27)
[2024-07-25] MEDS: Brivaracetam [Briviact] 100 MG PO SCH (20:31)
--- NOTE | 2024-07-25 20:53 | P.PN ---
Progress Note - Text Progress Note Date: 07/25/24 Chief Complaint: Back pain This is a [id number] patient who follows with Dr. Prasad Matthews. Chronic stable medical condition include COPD, diabetes, GERD, hyperlipidemia, essential hypertension, grand mal seizure , hemorrhoids, psoriasis, previous TIA with no residual. 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 Bipolar. Cardiac catheterization February 2024: Mild to moderate triple-vessel CAD.-Medical management Patient was seen in the ER. Presented here after having complaining of increasing back pain. Pain starts in the back and wraps around on lower part of the chest wall anteriorly. Worse in certain positions and body movement. Around July 16 patient had about 6 episodes of seizures. His sister and mother were present. Did not shift patient taken a fall. Pains been getting worse since then. Patient stopped smoking 5 months ago. At baseline has 3-4 BMs a day. Sometimes loose July 24: Pending MRI. Pain controlled. Tolerating a diet. Spending a cardio input. Seen by Dr. Holman from orthopedics. July 25: No new issues. Pending MRI. Being followed by orthopedics. Active Medications Acetaminophen (Acetaminophen Tab 325 Mg Tab) 650 mg PO Q6HR PRN PRN Reason: Mild Pain or Fever > 100.5 Hydrocodone Bitart/Acetaminophen (Hydrocodone/Apap 5-325mg 1 Each Tab) 1 each PO Q6HR PRN PRN Reason: Pain Last Admin: 07/25/24 17:39 Dose: 1 each Aspirin (Aspirin 81 Mg) 81 mg PO DAILY [facility] Last Admin: 07/25/24 09:53 Dose: 81 mg Atorvastatin Calcium (Atorvastatin 40 Mg Tab) 40 mg PO HS [facility] Last Admin: 07/25/24 20:27 Dose: 40 mg Budesonide/Formoterol Fumarate (Symbicort 160-4.5 Mcg Inhaler) 2 puff INHALATION RT-BID [facility] Last Admin: 07/25/24 08:59 Dose: 2 puff Cyclobenzaprine HCl (Cyclobenzaprine 10 Mg Tab) 10 mg PO TID PRN PRN Reason: Pain Last Admin: 07/24/24 11:19 Dose: 10 mg Dextrose/Water (Dextrose 50% Syringe 50 Ml) 25 ml IVP PER PROTOCOL PRN; Protocol PRN Reason: Hypoglycemia Dextrose/Water (Dextrose 50% Syringe 50 Ml) 50 ml IVP PER PROTOCOL PRN; Protocol PRN Reason: Hypoglycemia Enoxaparin Sodium (Enoxaparin 40 Mg/0.4 Ml Syringe) 40 mg SQ DAILY [facility] Last Admin: 07/25/24 09:54 Dose: 40 mg Famotidine (Famotidine 20 Mg Tab) 40 mg PO BID [facility] Last Admin: 07/25/24 20:27 Dose: 40 mg Gabapentin (Gabapentin 400 Mg Cap) 400 mg PO TID [facility] Last Admin: 07/25/24 20:27 Dose: 400 mg Ibuprofen (Ibuprofen 400 Mg Tab) 400 mg PO Q6HR PRN PRN Reason: Mild Pain or Fever > 100.5 Insulin Aspart (Insulin Aspart (Novolog) 100 Unit/Ml Vial) 0 unit SQ ACHS [facility]; Protocol Last Admin: 07/25/24 20:31 Dose: Not Given Insulin Aspart (Insuln Asp Prt/Insulin Aspart 100 Unit/Ml 10 Ml Vial) 18 unit SQ W/SUPPER [facility] Last Admin: 07/25/24 17:33 Dose: 18 unit Insulin Aspart (Insuln Asp Prt/Insulin Aspart 100 Unit/Ml 10 Ml Vial) 33 unit SQ W/BRKFST [facility] Last Admin: 07/25/24 10:48 Dose: 33 unit Insulin Aspart (Insuln Asp Prt/Insulin Aspart 100 Unit/Ml 10 Ml Vial) 8 unit SQ AC-LUNCH [facility] Last Admin: 07/25/24 13:45 Dose: 8 unit Lamotrigine (Lamotrigine 25 Mg Tab) 75 mg PO BID [facility] Last Admin: 07/25/24 20:30 Dose: 75 mg Lamotrigine (Lamotrigine 100 Mg Tab) 200 mg PO BID [facility] Last Admin: 07/25/24 20:27 Dose: 200 mg Levothyroxine Sodium (Levothyroxine 50 Mcg Tab) 50 mcg PO 0630 [facility] Last Admin: 07/25/24 06:12 Dose: 50 mcg Lidocaine (Lidocaine 4% Patch) 1 patch TOPICAL DAILY PRN PRN Reason: Pain Linagliptin (Linagliptin 5 Mg Tablet) 5 mg PO DAILY [facility] Last Admin: 07/25/24 09:54 Dose: 5 mg Lisinopril (Lisinopril 20 Mg Tab) 20 mg PO DAILY [facility] Last Admin: 07/25/24 18:17 Dose: Not Given Metformin HCl (Metformin 500 Mg Tab) 1,000 mg PO BID-W/MEALS [facility] Last Admin: 07/25/24 17:33 Dose: 1,000 mg Metoprolol Tartrate (Metoprolol Tartrate 12.5 Mg Tab) 12.5 mg PO BID [facility] Last Admin: 07/25/24 20:35 Dose: 12.5 mg Morphine Sulfate (Morphine Sulfate 4 Mg/Ml Syringe) 4 mg IV Q4HR PRN PRN Reason: Severe Pain (Scale 7 to 10) Last Admin: 07/25/24 20:28 Dose: 4 mg Naloxone HCl (Naloxone 0.4 Mg/Ml 1 Ml Vial) 0.2 mg IV Q2M PRN PRN Reason: Opioid Reversal Non-Formulary Medication (Brivaracetam [Briviact]) 100 mg PO BID [facility] Last Admin: 07/25/24 20:31 Dose: Not Given Ondansetron HCl (Ondansetron 4 Mg/2 Ml Vial) 4 mg IVP Q8HR PRN PRN Reason: Nausea And Vomiting Oxcarbazepine (Oxcarbazepine 150 Mg Tab) 150 mg PO BID [facility] Last Admin: 07/25/24 20:28 Dose: 150 mg Sertraline HCl (Sertraline 100 Mg Tab) 100 mg PO DAILY [facility] Last Admin: 07/25/24 09:54 Dose: 100 mg Tamsulosin HCl (Tamsulosin 0.4 Mg Cap.Er.24h) 0.4 mg PO [facility] Last Admin: 07/25/24 20:28 Dose: 0.4 mg Tizanidine HCl (Tizanidine 4 Mg Tab) 4 mg PO TID PRN PRN Reason: Pain Last Admin: 07/24/24 15:02 Dose: 4 mg Trazodone HCl (Trazodone Hcl 50 Mg Tab) 150 mg PO [facility] Last Admin: 07/25/24 20:27 Dose: 150 mg Social history: Patient lives with his mother. Half a pack for 30 years stopped about 5 months ago. CBD Gummies. Alcohol occasionally Physical examination: VITAL SIGNS: 98, 80, 16, 109 x 67, 98% room air GENERAL: Comfortable EYES: Pupils equal. Conjunctiva chelsi l. HEENT: External appearance of nose and ears normal, oral cavity grossly normal. NECK: JVD not raised; masses not palpable. HEART: First and second heart sounds are normal; no edema. LUNGS: Respiratory rate increased l; decreased breath sounds, ABDOMEN: Soft, nontender, liver spleen not palpable, no masses palpable. PSYCH: [Alert and oriented x3; mood and affect. Anxious. MUSCULOSKELETAL:No Clubbing/cyanosis;muscles-grossly intact. Tenderness in the area of T6-T8 NEUROLOGICAL: Cranial nerves grossly intact; no facial asymmetry, power and sensation grossly intact. INVESTIGATIONS, reviewed in the clinical context: July 23: White: 0.6 hemoglobin 11.1 platelets 416 sodium 138 potassium 4.5 creatinine 0.98 Troponin I less than 0.012 EKG tracing personally reviewed by me-normal sinus rhythm. Flipped T waves in inferolateral leads CT angio chest: Negative for PE. Superior endplate deformities of T6 and T8 concerning for fracture.Mild emphysema changes. Left lower lobe subcentimeter pulmonary nodule. Assessment plan: -Acute back pain in the region of T6-T8. Started on July 16. Patient had about 6 episodes of seizures. Pain present since then. Pain presently bandlike sensation going to the front of the chest. Likely radicular pain. Seen by Dr. Jermaine Holman from orthopedic spine. Pending MRI of the spine. -Chest pain on both the sides wrapped around the front likely radicular pain. Given previous cardiac catheterization some CAD and flipped T waves we will consult cardiology Negative troponin. Telemetry h Pending cardiology input -Mild to moderate CAD per cardiac cath, February 2024 -COPD in previous smoker. Stopped smoking 5 months ago Symbicort -Diabetes mellitus type 1 on insulin Januvia. Glucophage. Insulin -Hyperlipidemia Lofibra -Hypothyroid Synthroid 50 mcg -Bipolar disorder Continue home medication -Essential hypertension Lisinopril -Epilepsy/grand mal seizures. Briviact. Trileptal -Full code Discussed. Pending MRI. Past Medical History Past Medical History: Asthma, Chest Pain / Angina, COPD, CVA/TIA, Diabetes Mellitus, GERD/Reflux, Hyperlipidemia, Hypertension, Seizure Disorder, Skin Disorder Additional Past Medical History / Comment(s): IDDM type II, grand mal seizures, coughing from cigarettes, hemorrhoid, constipation/diarrhea, hx psoriasis, eczema, back pain, hydrocele. 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, [facility] foot surgery, sternum partially removed/muscle flap, lumbar puncture 10/03/23 Past Anesthesia/Blood Transfusion Reactions: No Reported Reaction Past Psychological History: Anxiety, Bipolar, Depression, Panic Disorder, Schizophrenia Smoking Status: Former smoker Past Alcohol Use History: Occasional Past Drug Use History: Marijuana
[2024-07-26 05:51] LABS: Glucose,Whole Blood 143 mg/dL (70-110)
[2024-07-26 12:30] LABS: Glucose,Whole Blood 131 mg/dL (70-110)
[2024-07-26 17:22] LABS: Glucose,Whole Blood 145 mg/dL (70-110)
--- NOTE | 2024-07-26 19:24 | P.PN ---
Progress Note - Text Progress Note Date: 07/26/24 Chief Complaint: Back pain This is a [id number] patient who follows with Dr. Prasad Matthews. Chronic stable medical condition include COPD, diabetes, GERD, hyperlipidemia, essential hypertension, grand mal seizure , hemorrhoids, psoriasis, previous TIA with no residual. 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 Bipolar. Cardiac catheterization February 2024: Mild to moderate triple-vessel CAD.-Medical management Patient was seen in the ER. Presented here after having complaining of increasing back pain. Pain starts in the back and wraps around on lower part of the chest wall anteriorly. Worse in certain positions and body movement. Around July 16 patient had about 6 episodes of seizures. His sister and mother were present. Did not shift patient taken a fall. Pains been getting worse since then. Patient stopped smoking 5 months ago. At baseline has 3-4 BMs a day. Sometimes loose July 24: Pending MRI. Pain controlled. Tolerating a diet. Spending a cardio input. Seen by Dr. Holman from orthopedics. July 25: No new issues. Pending MRI. Being followed by orthopedics. July 26: Saw the patient this morning. Back pain present. Pending MRI. Discussed. Other medications to continue. Patient is able to ambulate to the bathroom. With physical therapy walked independently 75 feet. Active Medications Acetaminophen (Acetaminophen Tab 325 Mg Tab) 650 mg PO Q6HR PRN PRN Reason: Mild Pain or Fever > 100.5 Hydrocodone Bitart/Acetaminophen (Hydrocodone/Apap 5-325mg 1 Each Tab) 1 each PO Q6HR PRN PRN Reason: Pain Last Admin: 07/25/24 17:39 Dose: 1 each Aspirin (Aspirin 81 Mg) 81 mg PO DAILY [facility] Last Admin: 07/26/24 08:43 Dose: 81 mg Atorvastatin Calcium (Atorvastatin 40 Mg Tab) 40 mg PO HS [facility] Last Admin: 07/25/24 20:27 Dose: 40 mg Budesonide/Formoterol Fumarate (Symbicort 160-4.5 Mcg Inhaler) 2 puff INHALATION RT-BID [facility] Last Admin: 07/26/24 08:36 Dose: 2 puff Cyclobenzaprine HCl (Cyclobenzaprine 10 Mg Tab) 10 mg PO TID PRN PRN Reason: Pain Last Admin: 07/24/24 11:19 Dose: 10 mg Dextrose/Water (Dextrose 50% Syringe 50 Ml) 25 ml IVP PER PROTOCOL PRN; Protocol PRN Reason: Hypoglycemia Dextrose/Water (Dextrose 50% Syringe 50 Ml) 50 ml IVP PER PROTOCOL PRN; Protocol PRN Reason: Hypoglycemia Enoxaparin Sodium (Enoxaparin 40 Mg/0.4 Ml Syringe) 40 mg SQ DAILY [facility] Last Admin: 07/26/24 08:44 Dose: 40 mg Famotidine (Famotidine 20 Mg Tab) 40 mg PO BID [facility] Last Admin: 07/26/24 08:43 Dose: 40 mg Gabapentin (Gabapentin 400 Mg Cap) 400 mg PO TID [facility] Last Admin: 07/26/24 16:57 Dose: 400 mg Ibuprofen (Ibuprofen 400 Mg Tab) 400 mg PO Q6HR PRN PRN Reason: Mild Pain or Fever > 100.5 Insulin Aspart (Insulin Aspart (Novolog) 100 Unit/Ml Vial) 0 unit SQ ACHS [facility]; Protocol Last Admin: 07/26/24 17:29 Dose: Not Given Insulin Aspart (Insuln Asp Prt/Insulin Aspart 100 Unit/Ml 10 Ml Vial) 18 unit SQ W/SUPPER [facility] Last Admin: 07/26/24 16:58 Dose: 18 unit Insulin Aspart (Insuln Asp Prt/Insulin Aspart 100 Unit/Ml 10 Ml Vial) 33 unit SQ W/BRKFST [facility] Last Admin: 07/26/24 08:43 Dose: 33 unit Insulin Aspart (Insuln Asp Prt/Insulin Aspart 100 Unit/Ml 10 Ml Vial) 8 unit SQ AC-LUNCH [facility] Last Admin: 07/26/24 13:03 Dose: 8 unit Lamotrigine (Lamotrigine 25 Mg Tab) 75 mg PO BID [facility] Last Admin: 07/26/24 08:43 Dose: 75 mg Lamotrigine (Lamotrigine 100 Mg Tab) 200 mg PO BID [facility] Last Admin: 07/26/24 08:43 Dose: 200 mg Levothyroxine Sodium (Levothyroxine 50 Mcg Tab) 50 mcg PO 0630 [facility] Last Admin: 07/26/24 06:17 Dose: 50 mcg Lidocaine (Lidocaine 4% Patch) 1 patch TOPICAL DAILY PRN PRN Reason: Pain Linagliptin (Linagliptin 5 Mg Tablet) 5 mg PO DAILY [facility] Last Admin: 07/26/24 08:43 Dose: 5 mg Lisinopril (Lisinopril 20 Mg Tab) 20 mg PO DAILY [facility] Last Admin: 07/26/24 08:43 Dose: 20 mg Metformin HCl (Metformin 500 Mg Tab) 1,000 mg PO BID-W/MEALS [facility] Last Admin: 07/26/24 16:58 Dose: 1,000 mg Metoprolol Tartrate (Metoprolol Tartrate 12.5 Mg Tab) 12.5 mg PO BID [facility] Last Admin: 07/26/24 08:43 Dose: 12.5 mg Morphine Sulfate (Morphine Sulfate 4 Mg/Ml Syringe) 4 mg IV Q4HR PRN PRN Reason: Severe Pain (Scale 7 to 10) Last Admin: 07/26/24 16:58 Dose: 4 mg Naloxone HCl (Naloxone 0.4 Mg/Ml 1 Ml Vial) 0.2 mg IV Q2M PRN PRN Reason: Opioid Reversal Brivaracetam [ (Briviact] 100 Mg) 100 mg PO BID [facility] Last Admin: 07/26/24 13:22 Dose: 100 mg Ondansetron HCl (Ondansetron 4 Mg/2 Ml Vial) 4 mg IVP Q8HR PRN PRN Reason: Nausea And Vomiting Oxcarbazepine (Oxcarbazepine 150 Mg Tab) 150 mg PO BID [facility] Last Admin: 07/26/24 08:44 Dose: 150 mg Sertraline HCl (Sertraline 100 Mg Tab) 100 mg PO DAILY [facility] Last Admin: 07/26/24 08:43 Dose: 100 mg Tamsulosin HCl (Tamsulosin 0.4 Mg Cap.Er.24h) 0.4 mg PO [facility] Last Admin: 07/25/24 20:28 Dose: 0.4 mg Tizanidine HCl (Tizanidine 4 Mg Tab) 4 mg PO TID PRN PRN Reason: Pain Last Admin: 07/24/24 15:02 Dose: 4 mg Trazodone HCl (Trazodone Hcl 50 Mg Tab) 150 mg PO [facility] Last Admin: 07/25/24 20:27 Dose: 150 mg Social history: Patient lives with his mother. Half a pack for 30 years stopped about 5 months ago. CBD Gummies. Alcohol occasionally Physical examination: VITAL SIGNS: 97.9, 78, 16, 109/70, 95% room air GENERAL: Resting in bed EYES: Pupils equal. Conjunctiva chelsi l. HEENT: External appearance of nose and ears normal, oral cavity grossly normal. NECK: JVD not raised; masses not palpable. HEART: First and second heart sounds are normal; no edema. LUNGS: Respiratory rate increased l; decreased breath sounds, ABDOMEN: Soft, nontender, liver spleen not palpable, no masses palpable. PSYCH: [Alert and oriented x3; mood and affect. Anxious. MUSCULOSKELETAL:No Clubbing/cyanosis;muscles-grossly intact. Tenderness in the area of T6-T8 NEUROLOGICAL: Cranial nerves grossly intact; no facial asymmetry, power and sensation grossly intact. July 26: Walked 75 feet independently INVESTIGATIONS, reviewed in the clinical context: July 23: White: 0.6 hemoglobin 11.1 platelets 416 sodium 138 potassium 4.5 creatinine 0.98 Troponin I less than 0.012 EKG tracing personally reviewed by me-normal sinus rhythm. Flipped T waves in inferolateral leads CT angio chest: Negative for PE. Superior endplate deformities of T6 and T8 concerning for fracture.Mild emphysema changes. Left lower lobe subcentimeter pulmonary nodule. Assessment plan: -Acute back pain in the region of T6-T8. Started on July 16. Patient had about 6 episodes of seizures. Pain present since then. Pain presently bandlike sensation going to the front of the chest. Likely radicular pain. Seen by Dr. Jermaine Holman from orthopedic spine. Pending MRI of the spine. -Chest pain on both the sides wrapped around the front likely radicular pain. Given previous cardiac catheterization some CAD and flipped T waves we will consult cardiology Negative troponin. Telemetry h Pending cardiology input -Mild to moderate CAD per cardiac cath, February 2024 -COPD in previous smoker. Stopped smoking 5 months ago Symbicort -Diabetes mellitus type 1 on insulin Januvia. Glucophage. Insulin -Hyperlipidemia Lofibra -Hypothyroid Synthroid 50 mcg -Bipolar disorder Continue home medication -Essential hypertension Lisinopril -Epilepsy/grand mal seizures. Briviact. Trileptal -Full code Walk 75 feet independently. Pending MRI. Discussed. Past Medical History Past Medical History: Asthma, Chest Pain / Angina, COPD, CVA/TIA, Diabetes Mellitus, GERD/Reflux, Hyperlipidemia, Hypertension, Seizure Disorder, Skin Disorder Additional Past Medical History / Comment(s): IDDM type II, grand mal seizures, coughing from cigarettes, hemorrhoid, constipation/diarrhea, hx psoriasis, eczema, back pain, hydrocele. 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, [facility] surgery, sternum partially removed/muscle flap, lumbar puncture 10/03/23 Past Anesthesia/Blood Transfusion Reactions: No Reported Reaction Past Psychological History: Anxiety, Bipolar, Depression, Panic Disorder, Schizophrenia Smoking Status: Former smoker Past Alcohol Use History: Occasional Past Drug Use History: Marijuana
[2024-07-26 20:26] LABS: Glucose,Whole Blood 219 mg/dL (70-110)
--- NOTE | 2024-07-26 23:48 | EEG ---
ELECTROENCEPHALOGRAM REPORT PREAMBLE: This is a 44-year-old male, who came to the hospital for back and abdominal pain and had some suspicious seizure-like activity in the ER. The patient has history of asthma, COPD, CVA, diabetes. CURRENT MEDICATIONS: 1. Lamictal. 2. Tradjenta. 3. Morphine. 4. Briviact. 5. Trileptal. 6. Zoloft. 7. Zanaflex. EEG FINDINGS: This is a 21-channel digital EEG recorded with video component, utilizing 10/20 international system with referential and bipolar montages. Background consists of moderately well developed and well regulated, predominantly moderate amplitude 6 to 7 hertz theta activity seen in bihemispheric region. Background is posterior dominant, does not seem to be reactive to eye opening or closing. The photic driving response was not seen. In between photic stimulation, there was a single spike and a slow wave seen in the bifrontal region. There was some eyelid movement noted around the same time, therefore uncertain of clinical significance as it was not reproduced during rest of the study. No electrographic seizure was recorded. Different stages of sleep were not seen. IMPRESSION: 1. This is an abnormal EEG due to presence of background slowing of moderate degree. This is suggestive of generalized cerebral dysfunction as can be seen with toxic metabolic encephalopathy or related to diffuse structural brain abnormality. Clinical correlation is recommended. 2. Presence of a single spike and a slow wave seen involving bifrontal region, seen only once throughout the study, therefore uncertain clinical significance. Suggest prolonged, sleep-deprived EEG, if your suspicion for seizure is high. MMODL / IJN: [id number] /
[2024-07-27 06:15] LABS: Glucose,Whole Blood 214 mg/dL (70-110)
[2024-07-27 08:02] LABS: Lamotrigine (Lamictal) 14.2 ug/mL (2.0-15.0)
--- NOTE | 2024-07-27 10:27 | P.PN ---
Subjective Progress Note Date: 07/26/24 Patient was initially seen by Dr. Jt Nye. Please refer to his note for details. Patient is a 44-year-old male with history of seizure, who with multiple seizures in the end of June. Patient states his low back is hurting. Patient states that he has mid back pain, which wraps around his chest. Patient has history of seizure disorder since age 23. He follows up with Dr. Grullon. Objective - Vital Signs Vital signs: Vital Signs Temp 98.2 F 07/26/24 20:00 Pulse 78 07/26/24 20:00 Resp 17 07/26/24 20:00 BP 119/73 07/26/24 20:00 Pulse Ox 94 L 07/26/24 20:00 FiO2 Intake & Output 07/26/24 07/26/24 07/27/24 06:59 18:59 06:59 Intake Total 760 576 Balance 760 576 Intake: Oral 760 576 Other: Voiding Method Toilet # Voids 2 10 # Bowel Movements 2 - Exam Patient is laying in the bed, alert and awake in no distress. - Labs CBC & Chem 7: 07/23/24 15:00 07/23/24 15:00 Labs: Abnormal Lab Results - Last 24 Hours (Table) 07/26/24 07/26/24 07/26/24 Range/Units 05:50 12:28 17:20 POC Glucose (mg/dL) 143 H 131 H 145 H (70-110) mg/dL 07/26/24 Range/Units 20:24 POC Glucose (mg/dL) 219 H (70-110) mg/dL Assessment and Plan Assessment: This is a 44-year-old gentleman with history of seizure and is on Lamictal, Trileptial and Briviact who presents to hospital because of pain, chest pain and abdominal pain. Neurology is consulted for seizure. It seems towards the end of June he had 6 seizure-like activity and he stated they are grand mal seizure. Back pain T6 and T8 fracture Abdominal pain Diverticulosis Breakthrough seizure towards end of June 2024. Unsure if seizure are not controlled. History of seizure and is on Lamictal, Trileptal and Brivact Plan: CT of the head revealed no acute intracranial process. Similar remote left basa l ganglia lacunar injury. I personally reviewed CT head agree with the findings. CT cervical spine revealed no evidence of cervical spine fracture, mild multilevel degenerative disc disease. EEG was abnormal due to background slowing suggestive of moderate encephalopathy. Presence of a single (only 1) spike and slow wave seen involving bifrontal region. It was not reproduced during rest of the study, therefore doubt clinical significance. If your suspicion for seizures is high, suggest prolonged, sleep deprived EEG. Patient is on Lamictal 275 mg twice daily and Briviact 50 mg twice daily. Patient is also on Trileptal 150 mg twice daily. Lamictal level 14.2 (2-15), Trileptal level 2.8 (10-35) Dr. Nye has increased Briviact to 100 mg twice daily. seizure precaution and pads Per [facility] because of the seizure, to avoid driving for 6 months until se izure-free, avoid heights, avoid swimming consider or using heavy machinery Patient is on gabapentin 400 mg 3 times daily as well as is on Flexeril 10 mg 3 times daily as needed. Cardiology is consulted Orthopedic surgery team is consulted Will defer the rest of the medical management to primary other specialist The patient was notified to follow-up with his neurologist (Dr. Murrieta) and has appointment next week. Neurologically clear for discharge.
[2024-07-27 12:12] LABS: Glucose,Whole Blood 122 mg/dL (70-110)
--- NOTE | 2024-07-27 12:31 | MR ---
EXAMINATION TYPE: MR thoracic spine wo con DATE OF EXAM: 07/27/2024 12:12 PM COMPARISON: None. CLINICAL INDICATION: Male, 44 years old with history of T6 and T8 cx deformities read as poss fx on C T, T6 and T8 deformities, possible fx, abnormal CT TECHNIQUE: Multiplanar, multiecho imaging on a 3.0 Jessica magnet is performed through the thoracic spi ne. IV Contrast: mL (None, if empty) FINDINGS: Spinal cord maintains normal signal through its visualized course. There is increased kyphosis present. Vertebral body heights have noncompression deformities along the superior endplates of C5&6 and T8&9. There is increased signal on T2-weighted sequences adjacent to these endplate changes. This is throu ghout the T8. This is hypointense on T1-weighted sequences. Findings can be compatible with acute com pression deformities. Disc heights are preserved. There is right paracentral disc bulging present at T9-10 with mild anterior thecal sac compression. T his comes in close approximation with the spinal cord without cord contact or deformity. Disc hydration levels are preserved. No spinal canal stenosis is evident. IMPRESSION: 1. Mild superior endplate compression deformities T5, T6, T8, and T9 with signal changes suggesting t hese could be acute. This is greatest at T8. No posterior wall displacement or spinal canal stenosis. 2. Right paracentral disc bulging T9-10 with mild anterior thecal sac compression. This is in close a pproximation with the spinal cord without contact or spinal canal stenosis. [facility], , 07/27/2024 12:29 PM
--- NOTE | 2024-07-27 12:44 | P.PN ---
Progress Note - Text Progress Note Date: 07/27/24 Patient seen and examined at bedside. He still complains of pain in his mid back. He is not complaining of any numbness tingling or weakness in his upper or lower extremities. He is sitting up in bed and moves fairly well in bed. He is ambulatory. He denies any shortness of breath or chest pain or nausea or vomiting. He had his MRI completed. On exam he is afebrile. He has some diffuse tenderness at his mid thoracic and lower thoracic spine without any bony crepitus. His chest has good excursion with deep inspiration expiration Upper extremities have full 5 out of 5 strength throughout Lower extremities overall 5 out of 5 strength throughout Neck is nontender to palpation range of motion MRI of thoracic spine is completed. I do not have the report. There is evidence of some signal at T4-T5 T7 and T8. There is some compression forming at these levels to indicate healing fractures. There is no significant canal compromise. I do not see any significant bony retropulsion or stenosis. I do not see any obvious bony erosion. The report is still pending. Assessment and plan Thoracic back pain likely due to multiple thoracic compression fractures at various stages of healing. No neurologic compromise Fractures likely due to seizure activity The patient has a number of compression deformities with adequate overall structure and mild deformity. These fractures can do well with healing expectantly with a brace and support. He is maintaining decent mobility on his own in the room and with sitting up and getting in and out of bed. I think that he has opportunity to heal these adequately with dedicated bracing with a TLSO brace. I have ordered a TLSO brace and written a prescription for a TLSO brace aspirin or equivalent. He should use a brace whenever he is up out of bed. He does not use brace while he is in bed. He should avoid any repetitive bending twisting or lifting. No heavy or rigorous activity. It is okay for him to be discharged today with appropriate accommodations to obtain his brace today. I can see him back in 1 to 2 weeks for recheck evaluation repeat x-rays. If he is not doing well we could consider surgical intervention with kyphoplasty but we would like to try conservative management first. I have discussed this with him answered his questions and he is agreeable.
[2024-07-27] MEDS: ACETAMINOPHEN TAB 325 MG TAB PO PRN (13:03)
[2024-07-27 14:53] VITALS: BP 131/78; PULSE 82; RESP 16; TEMP 96.7
--- NOTE | 2024-07-28 09:22 | P.DS ---
Providers Date of admission: 07/27/24 09:42 Expected date of discharge: 07/27/24 Attending physician: Farooq Pantoja Consults: 07/23/24 19:28 Consult Physician Urgent Consulting Provider: Jermaine Holman Consult Reason/Comments: T6 and T8 fractures Do you want consulting provider notified?: Yes 07/24/24 17:19 Consult Physician Routine Consulting Provider: Jt Nye Consult Reason/Comments: suspicion of Seizure ? Do you want consulting provider notified?: Yes Primary care physician: [facility] Course: Chief Complaint: Back pain This is a [id number] patient who follows with Dr. Prasad Matthews. Chronic stable medical condition include COPD, diabetes, GERD, hyperlipidemia, essential hypertension, grand mal seizure , hemorrhoids, psoriasis, previous TIA with no residual. 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 Bipolar. Cardiac catheterization February 2024: Mild to moderate triple-vessel CAD.-Medical management Patient was seen in the ER. Presented here after having complaining of increasing back pain. Pain starts in the back and wraps around on lower part of the chest wall anteriorly. Worse in certain positions and body movement. Around July 16 patient had about 6 episodes of seizures. His sister and mother were present. Did not shift patient taken a fall. Pains been getting worse since then. Patient stopped smoking 5 months ago. At baseline has 3-4 BMs a day. Sometimes loose July 24: Pending MRI. Pain controlled. Tolerating a diet. Spending a cardio input. Seen by Dr. Holamn from orthopedics. July 25: No new issues. Pending MRI. Being followed by orthopedics. July 26: Saw the patient this morning. Back pain present. Pending MRI. Discussed. Other medications to continue. Patient is able to ambulate to the bathroom. With physical therapy walked independently 75 feet. July 27: Sitting up in bed. Did ambulate. Back pain present. MRI was done. Evaluated by Dr. Holman. TLSO brace ordered. Physical instructions per him. Patient to be managed conservatively. If no improvement he will see the patient outpatient to consider intervention with kyphoplasty. Patient to follow-up with his neurologist Dr. Witt. Discussion and discharge planning more than 35 minutes Social history: Patient lives with his mother. Half a pack for 30 years stopped about 5 months ago. CBD Gummies. Alcohol occasionally Physical examination: VITAL SIGNS: 96.7, 82, 16, 131 x 78, 98% room air GENERAL: Sitting up in bed, EYES: Pupils equal. Conjunctiva chelsi l. HEENT: External appearance of nose and ears normal, oral cavity grossly normal. NECK: JVD not raised; masses not palpable. HEART: First and second heart sounds are normal; no edema. LUNGS: Respiratory rate increased l; decreased breath sounds, ABDOMEN: Soft, nontender, liver spleen not palpable, no masses palpable. PSYCH: [Alert and oriented x3; mood and affect. Anxious. MUSCULOSKELETAL:No Clubbing/cyanosis;muscles-grossly intact. Tenderness in the area of T6-T8 NEUROLOGICAL: Cranial nerves grossly intact; no facial asymmetry, power and sensation grossly intact. July 26: Walked 75 feet independently INVESTIGATIONS, reviewed in the clinical context: Thoracic spine MRI: Mild superior endplate compression fracture T5, T6, T8, T9 with signal changes suggestive for possible acute. Grade 2/T8. Right paracentral disc bulging at T9-T10 with mild anterior thecal sac compression. Close approximation to the spinal cord. Without contact July 23: White: 0.6 hemoglobin 11.1 platelets 416 sodium 138 potassium 4.5 creatinine 0.98 Troponin I less than 0.012 EKG tracing personally reviewed by me-normal sinus rhythm. Flipped T waves in inferolateral leads CT angio chest: Negative for PE. Superior endplate deformities of T6 and T8 concerning for fracture.Mild emphysema changes. Left lower lobe subcentimeter pulmonary nodule. Assessment plan: -Acute back pain in the region of T6-T8. Started on July 16. Patient had about 6 episodes of seizures. Pain present since then. Pain presently bandlike sensation going to the front of the chest. Likely radicular pain. Seen by Dr. Jermaine Holman from orthopedic spine.-TLSO spinal brace ordered. If no improvement then for outpatient interventional kyphoplasty Thoracic spine MRI: Mild superior endplate compression fracture T5, T6, T8, T9 with signal changes suggestive for possible acute. Grade 2/T8. Right paracentral disc bulging at T9-T10 with mild anterior thecal sac compression. Close approximation to the spinal cord. Without contact -Chest pain on both the sides wrapped around the front likely radicular pain. Given previous cardiac catheterization some CAD and flipped T waves we will consult cardiology Negative troponin. Telemetry h Seen by cardiology Dr. Gonzalez. Continue current treatment plan. -Mild to moderate CAD per cardiac cath, February 2024 -COPD in previous smoker. Stopped smoking 5 months ago Symbicort -Diabetes mellitus type 1 on insulin Januvia. Glucophage. Insulin -Hyperlipidemia Lofibra -Hypothyroid Synthroid 50 mcg -Bipolar disorder Continue home medication -Essential hypertension Lisinopril -Epilepsy/grand mal seizures. Briviact. Trileptal -Full code Disposition: Home Past Medical History Past Medical History: Asthma, Chest Pain / Angina, COPD, CVA/TIA, Diabetes Mellitus, GERD/Reflux, Hyperlipidemia, Hypertension, Seizure Disorder, Skin Disorder Additional Past Medical History / Comment(s): IDDM type II, grand mal seizures, coughing from cigarettes, hemorrhoid, constipation/diarrhea, hx psoriasis, eczema, back pain, hydrocele. 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, [facility] foot surgery, sternum partially removed/muscle flap, lumbar puncture 10/03/23 Past Anesthesia/Blood Transfusion Reactions: No Reported Reaction Past Psychological History: Anxiety, Bipolar, Depression, Panic Disorder, Schizophrenia Smoking Status: Former smoker Past Alcohol Use History: Occasional Past Drug Use History: Marijuana Plan - Discharge Summary New Discharge Prescriptions: New Aspirin 81 mg PO DAILY tab Cyclobenzaprine [Flexeril] 10 mg PO TID PRN #30 tab PRN Reason: Pain Metoprolol Tartrate [Lopressor] 12.5 mg PO BID #60 tab OXcarbazepine [Trileptal] 150 mg PO BID #60 tab Sertraline [Zoloft] 100 mg PO DAILY #30 tab Brivaracetam [Briviact] 100 mg PO BID #60 HYDROcodone/APAP 5-325MG [[place] 5-325] 1 tab PO Q8HR PRN 7 Days #21 tab PRN Reason: Pain Continue Haloperidol Decanoate [Haldol D] 200 mg IM Q21D lisinopriL 20 mg PO DAILY Levothyroxine Sodium [Synthroid] 50 mcg PO DAILY metFORMIN HCL [Glucophage] 1,000 mg PO BID lamoTRIgine [LaMICtal] 200 mg PO BID lamoTRIgine [LaMICtal] 75 mg PO BID traZODone HCL 225 mg PO HS Fluticasone Propionate [Flovent Hfa 220 mcg] 2 puff INHALATION RT-BID sitaGLIPtin [Januvia] 100 mg PO DAILY Tamsulosin HCl [Flomax] 0.4 mg PO HS Gabapentin [Neurontin] 400 mg PO TID Ergocalciferol [Vitamin D2 (1250 Mcg = 83600 Iu)] 1,250 unit PO FR methocarbamoL [Robaxin] 1,000 mg PO TID Magnesium Oxide [Mag-Ox] 400 mg PO DAILY Atorvastatin [Lipitor] 40 mg PO HS Albuterol Nebulized [Ventolin Nebulized] 2.5 mg INHALATION RT-TID PRN PRN Reason: Shortness Of Breath Albuterol Sulfate [Albuterol Sulfate Hfa] 2 puff INHALATION RT-Q6H PRN PRN Reason: Shortness Of Breath tiZANidine [Zanaflex] 4 mg PO TID PRN PRN Reason: Pain Insulin NPH Hum/Reg Insulin Hm [humuLIN 70/30 Kwikpen] 40 unit SQ W/BRKFST Insulin NPH Hum/Reg Insulin Hm [humuLIN 70/30 Kwikpen] 20 unit SQ W/SUPPER Ferrous Sulfate [Iron (65 MG Elemental)] 325 mg PO DAILY Budesonide-Formot 160-4.5 Mcg [Symbicort 160-4.5 Mcg Inhaler] 2 puff INHALATION RT-BID #1 each Famotidine [Pepcid] 40 mg PO BID Cholecalciferol [Vitamin D3 (125 Mcg = 5000 Iu)] 125 mcg PO DAILY Discontinued Brivaracetam [Briviact] 50 mg PO BID HYDROcodone/APAP 5-325MG [[place] 5-325] 1 tab PO Q8H PRN PRN Reason: Pain Sertraline HCl 150 mg PO DAILY Propranolol [Inderal] 20 mg PO TID No Action Lactulose 10 gm PO BID PRN PRN Reason: Constipation Discharge Medication List Haloperidol Decanoate [Haldol D] 200 mg IM Q21D 07/31/14 [History] Levothyroxine Sodium [Synthroid] 50 mcg PO DAILY 12/07/19 [History] lamoTRIgine [LaMICtal] 200 mg PO BID 12/07/19 [History] lisinopriL 20 mg PO DAILY 12/07/19 [History] metFORMIN HCL [Glucophage] 1,000 mg PO BID 12/07/19 [History] Albuterol Sulfate [Albuterol Sulfate Hfa] 2 puff INHALATION RT-Q6H PRN 02/07/23 [History] Fluticasone Propionate [Flovent Hfa 220 mcg] 2 puff INHALATION RT-BID 02/07/23 [History] Gabapentin [Neurontin] 400 mg PO TID 02/07/23 [History] Insulin NPH Hum/Reg Insulin Hm [humuLIN 70/30 Kwikpen] 20 unit SQ W/SUPPER 02/07/23 [History] Insulin NPH Hum/Reg Insulin Hm [humuLIN 70/30 Kwikpen] 40 unit SQ W/BRKFST 02/07/23 [History] Tamsulosin HCl [Flomax] 0.4 mg PO HS 02/07/23 [History] lamoTRIgine [LaMICtal] 75 mg PO BID 02/07/23 [History] sitaGLIPtin [Januvia] 100 mg PO DAILY 02/07/23 [History] tiZANidine [Zanaflex] 4 mg PO TID PRN 02/07/23 [History] traZODone HCL 225 mg PO HS 02/07/23 [History] Ferrous Sulfate [Iron (65 MG Elemental)] 325 mg PO DAILY 02/09/24 [History] Budesonide-Formot 160-4.5 Mcg [Symbicort 160-4.5 Mcg Inhaler] 2 puff INHALATION RT-BID #1 each 02/21/24 [Rx] Ergocalciferol [Vitamin D2 (1250 Mcg = 80902 Iu)] 1,250 unit PO FR 03/30/24 [History] Albuterol Nebulized [Ventolin Nebulized] 2.5 mg INHALATION RT-TID PRN 07/23/24 [History] Atorvastatin [Lipitor] 40 mg PO HS 07/23/24 [History] Cholecalciferol [Vitamin D3 (125 Mcg = 5000 Iu)] 125 mcg PO DAILY 07/23/24 [History] Famotidine [Pepcid] 40 mg PO BID 07/23/24 [History] Lactulose 10 gm PO BID PRN 07/23/24 [History] Magnesium Oxide [Mag-Ox] 400 mg PO DAILY 07/23/24 [History] methocarbamoL [Robaxin] 1,000 mg PO TID 07/23/24 [History] Aspirin 81 mg PO DAILY tab 07/27/24 [Rx] Brivaracetam [Briviact] 100 mg PO BID #60 07/27/24 [Rx] Cyclobenzaprine [Flexeril] 10 mg PO TID PRN #30 tab 07/27/24 [Rx] HYDROcodone/APAP 5-325MG [[place] 5-325] 1 tab PO Q8HR PRN 7 Days #21 tab 07/27/24 [Rx] Metoprolol Tartrate [Lopressor] 12.5 mg PO BID #60 tab 07/27/24 [Rx] OXcarbazepine [Trileptal] 150 mg PO BID #60 tab 07/27/24 [Rx] Sertraline [Zoloft] 100 mg PO DAILY #30 tab 07/27/24 [Rx] Follow up Appointment(s)/Referral(s): Jermaine Holman DO [Doctor of Osteopathic Medicine] - 2 Weeks Prasad Veliz DO [Primary Care Provider] - 1-2 days Niesha Grullon MD [REFERRING] - 1 Week Patient Instructions/Handouts: Seizure/Epilepsy Discharge Instructions & Follow-Up
== END 2024-07-27 16:46 | disposition home or self-care (01) | DRG 347 ==
LOC: EC 12:40 → 6NMEDSUR 19:15 → OBSVTOIN 07-27 09:42
PROVIDERS: ADMIT Hospitalist; ATTEND Hospitalist
PROC: 4A10X4Z Monitoring of Central Nervous Electrical Activity, External Approach (ICD-10-PCS; principal; 2024-07-26)
DX: M48.54XA Collapsed vertebra, not elsewhere classified, thoracic region, initial encounter for fracture (principal); K21.9 Gastro-esophageal reflux disease without esophagitis; Z79.4 Long term (current) use of insulin; J44.9 Chronic obstructive pulmonary disease, unspecified; L40.9 Psoriasis, unspecified; Z90.79 Acquired absence of other genital organ(s); F41.0 Panic disorder [episodic paroxysmal anxiety]; L30.9 Dermatitis, unspecified; G40.409 Other generalized epilepsy and epileptic syndromes, not intractable, without status epilepticus; F31.9 Bipolar disorder, unspecified; I25.10 Atherosclerotic heart disease of native coronary artery without angina pectoris; I10 Essential (primary) hypertension; F20.9 Schizophrenia, unspecified; E78.5 Hyperlipidemia, unspecified; E11.9 Type 2 diabetes mellitus without complications; E03.9 Hypothyroidism, unspecified; Z86.14 Personal history of Methicillin resistant Staphylococcus aureus infection; Z79.51 Long term (current) use of inhaled steroids; Z79.84 Long term (current) use of oral hypoglycemic drugs; Z79.82 Long term (current) use of aspirin; Z79.890 Hormone replacement therapy; Z79.899 Other long term (current) drug therapy; Z86.73 Personal history of transient ischemic attack (TIA), and cerebral infarction without residual deficits; Z87.19 Personal history of other diseases of the digestive system; Z98.42 Cataract extraction status, left eye; Z98.41 Cataract extraction status, right eye; Z87.891 Personal history of nicotine dependence
CPT/HCPCS: 36415; 70450; 71275; 72125; 72146; 74177; 80053; 80175; 80183; 81003; 82150; 83605; 83690; 83735; 84484; 85025; 85379; 85610; 85730; 93005; 93308; 94640; 95816; 96372; 96374; 96375; 96376; 99285; 99406

== ENCOUNTER 2024-08-06 11:08 | Emergency (ER) | payer OTHER ==
[2024-08-06 11:24] VITALS: BP 96/66; PULSE 78; RESP 20; TEMP 97.4
--- NOTE | 2024-08-06 11:45 | ED ---
Back Pain HPI - General Chief Complaint: Back Pain/Injury Stated Complaint: Back/rib pain,ISIS Time Seen by Provider: 08/06/24 11:40 Source: patient, RN notes reviewed Mode of arrival: ambulatory Limitations: no limitations - History of Present Illness Initial Comments: This is a 44-year-old male who presents to the emergency department for back pain. Patient states that he broke his back earlier this month and is waiting to follow-up with Dr. Holman. States that the office is making him go through a prior authorization process. He states that his pain is getting worse and not controlled with the hydrocodone he has at home. Currently taking 10 mg 4 times daily. Denies any loss of bowel/bladder control or saddle anesthesia. MD Complaint: back pain - Related Data Home Medications Medication Instructions Recorded Confirmed Haloperidol Decanoate [Haldol D] 200 mg IM Q21D 07/31/14 07/23/24 Levothyroxine Sodium [Synthroid] 50 mcg PO DAILY 12/07/19 07/23/24 lamoTRIgine [LaMICtal] 200 mg PO BID 12/07/19 07/23/24 lisinopriL 20 mg PO DAILY 12/07/19 07/23/24 metFORMIN HCL [Glucophage] 1,000 mg PO BID 12/07/19 07/23/24 Albuterol Sulfate [Albuterol 2 puff INHALATION RT-Q6H PRN 02/07/23 07/23/24 Sulfate Hfa] Fluticasone Propionate [Flovent 2 puff INHALATION RT-BID 02/07/23 07/23/24 Hfa 220 mcg] Gabapentin [Neurontin] 400 mg PO TID 02/07/23 07/23/24 Insulin NPH Hum/Reg Insulin Hm 20 unit SQ W/SUPPER 02/07/23 07/23/24 [humuLIN 70/30 Kwikpen] Insulin NPH Hum/Reg Insulin Hm 40 unit SQ W/BRKFST 02/07/23 07/23/24 [humuLIN 70/30 Kwikpen] Tamsulosin HCl [Flomax] 0.4 mg PO HS 02/07/23 07/23/24 lamoTRIgine [LaMICtal] 75 mg PO BID 02/07/23 07/23/24 sitaGLIPtin [Januvia] 100 mg PO DAILY 02/07/23 07/23/24 tiZANidine [Zanaflex] 4 mg PO TID PRN 02/07/23 07/23/24 traZODone HCL 225 mg PO HS 02/07/23 07/23/24 Ferrous Sulfate [Iron (65 MG 325 mg PO DAILY 02/09/24 07/23/24 Elemental)] Ergocalciferol [Vitamin D2 (1250 1,250 unit PO FR 03/30/24 07/23/24 Mcg = 34708 Iu)] Albuterol Nebulized [Ventolin 2.5 mg INHALATION RT-TID PRN 07/23/24 07/23/24 Nebulized] Atorvastatin [Lipitor] 40 mg PO HS 07/23/24 07/23/24 Cholecalciferol [Vitamin D3 (125 125 mcg PO DAILY 07/23/24 07/23/24 Mcg = 5000 Iu)] Famotidine [Pepcid] 40 mg PO BID 07/23/24 07/23/24 Lactulose 10 gm PO BID PRN 07/23/24 07/23/24 Magnesium Oxide [Mag-Ox] 400 mg PO DAILY 07/23/24 07/23/24 methocarbamoL [Robaxin] 1,000 mg PO TID 07/23/24 07/23/24 Previous Rx's Medication Instructions Recorded Budesonide-Formot 160-4.5 Mcg 2 puff INHALATION RT-BID #1 each 02/21/24 [Symbicort 160-4.5 Mcg Inhaler] Aspirin 81 mg PO DAILY tab 07/27/24 Brivaracetam [Briviact] 100 mg PO BID #60 07/27/24 Cyclobenzaprine [Flexeril] 10 mg PO TID PRN #30 tab 07/27/24 HYDROcodone/APAP 5-325MG [[place] 1 tab PO Q8HR PRN 7 Days #21 tab 07/27/24 5-325] Metoprolol Tartrate [Lopressor] 12.5 mg PO BID #60 tab 07/27/24 OXcarbazepine [Trileptal] 150 mg PO BID #60 tab 07/27/24 Sertraline [Zoloft] 100 mg PO DAILY #30 tab 07/27/24 Meloxicam [Mobic] 15 mg PO DAILY PRN #30 tab 08/06/24 oxyCODONE HCL/ACETAMINOPHEN 1 tab PO Q6H PRN 3 Days #12 tab 08/06/24 [oxyCODONE HCL/ACETAMINOPHEN 5-325] Allergies Allergy/AdvReac Type Severity Reaction Status Date / Time ketorolac [From Toradol] Allergy Abdominal Verified 08/06/24 11:24 Pain mirtazapine [From Remeron] Allergy Abdominal Verified 08/06/24 11:24 Pain pioglitazone [From Actos] Allergy Abdominal Verified 08/06/24 11:24 Pain acetaminophen AdvReac Nausea & Verified 08/06/24 11:24 [From Tylenol-Codeine #3] Vomiting codeine AdvReac Nausea & Verified 08/06/24 11:24 [From Tylenol-Codeine #3] Vomiting Review of Systems ROS Statement: Those systems with pertinent positive or pertinent negative responses have been documented in the HPI. ROS Other: All systems not noted in ROS Statement are negative. Past Medical History Past Medical History: Asthma, Chest Pain / Angina, COPD, CVA/TIA, Diabetes Mellitus, GERD/Reflux, Hyperlipidemia, Hypertension, Seizure Disorder, Skin Disorder Additional Past Medical History / Comment(s): IDDM type II, grand mal seizures, coughing from cigarettes, hemorrhoid, constipation/diarrhea, hx psoriasis, eczema, back pain, hydrocele. 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, [facility] foot surgery, sternum partially removed/muscle flap, lumbar puncture 10/03/23 Past Anesthesia/Blood Transfusion Reactions: No Reported Reaction Past Psychological History: Anxiety, Bipolar, Depression, Panic Disorder, Schizophrenia Smoking Status: Former smoker Past Alcohol Use History: Occasional Past Drug Use History: Marijuana - Past Family History Sister(s) Family Medical History: Cancer Mother Family Medical History: Cancer Father Family Medical History: Cancer General Exam Limitations: no limitations General appearance: alert, in no apparent distress Head exam: Present: atraumatic, normocephalic, normal inspection Respiratory exam: Present: normal lung sounds bilaterally. Absent: respiratory distress, wheezes, rales, rhonchi, stridor Cardiovascular Exam: Present: regular rate, normal rhythm, normal heart sounds. Absent: systolic murmur, diastolic murmur, rubs, gallop, clicks Neurological exam: Present: alert, oriented X3, CN II-XII intact Psychiatric exam: Present: normal affect, normal mood Skin exam: Present: warm, dry, intact, normal color. Absent: rash Course Vital Signs 08/06/24 11:22 Temperature 97.4 F L Pulse Rate 78 Respiratory 20 Rate Blood Pressure 96/66 O2 Sat by Pulse 99 Oximetry Medical Decision Making - Medical Decision Making This is a 44-year-old male who presents to the emergency department for back pain. Was pt. sent in by a medical professional or institution? @ -No Did you speak to anyone other than the patient for history? @ -No Did you review nursing and triage notes? @ -Yes, and I agree, it is accurate with regards to the patient's symptoms. Were old charts reviewed? @ -Thoracic spine MRI from 07/27/2024 demonstrating compression deformities of T5, T6, T8, and T9. He also has right paracentral disc bulging at T9-T10 with mild anterior thecal sac compression. Differential Diagnosis? @ -Differential Back Pain: Strain, zoster, cauda equina syndrome, epidural abscess, vertebral osteomyelitis, discitis, fracture, subluxation, disc herniation, DJD, spinal stenosis, dissection, AAA, pancreatitis, peptic ulcer disease, pyelonephritis, kidney stone, this is not meant to be an all-inclusive list. EKG interpreted by me (3pts min.)? @ -Not obtained X-rays interpreted by me (1pt min.)? @ -Not obtained CT interpreted by me (1pt min.)? @ -Not obtained U/S interpreted by me (1pt. min.)? @ -Not obtained What testing was considered but not performed? (CT, X-rays, U/S, labs)? Why? @ -None What meds were considered but not given? Why? @ -None Did you discuss the management of the patient with other professionals? @ -No Did you reconcile home meds? @ -No Was smoking cessation discussed for >3mins.? @ -I discussed smoking cessation for greater than 3 minutes. The risk of smoking were discussed with the patient including but not limited to risks of cancer, stroke, coronary artery disease and COPD. Also discussed with patient were multiple methods of quitting smoking. Lastly we discussed the financial c ost of smoking. Was critical care preformed (if so, how long)? @ -No Were there social determinants of health that impacted care today? How? (Homelessness, low income, unemployed, alcoholism, drug addiction, transportation, low edu. Level, literacy, decrease access to med. care, care home, rehab)? @ -No Was there de-escalation of care discussed even if they declined? (Discuss DNR or withdrawal of care, Hospice)? @ -No What co-morbidities impacted this encounter? (DM, HTN, Smoking, COPD, CAD, Cancer, CVA, Hep., AIDS, mental health diagnosis, sleep apnea, morbid obesity)? @ -Smoking, seizure disorder, history of CVA/TIA Was patient admitted / discharged? @ -Discharged. Prior documentation reviewed including a thoracic spine MRI from 07/27/2024 revealing compression deformities of T5, T6, T8, and T9 as well as right paracentral disc bulging at T9-T10. Pain was managed in the emergency department. Patient's MAPS was reviewed and he is taking [place] 10 mg 4 times daily without much of any relief. I discussed the case with the pharmacist who advised that he is not on a high enough pain medication dose to get even a 12 mcg fentanyl patch. Advised that he could be on something else for breakthrough pain. Oxycodone 5 mg prescribed to be taken for breakthrough pain as needed. Advised using this sparingly. Mobic prescribed as well. Case management called orthopedics and was able to schedule the patient an appointment with Dr. Holman to avoid going through the referral process the patient was told he needed. They advised that this was not necessary in his case. Patient expresses understanding and was discharged home in stable condition. Case discussed with ED attending Dr. Storey. Return precautions reviewed in depth, the patient is instructed to return to the emergency department with any new, worsening, or concerning symptoms. Patient verbalized understanding. Undiagnosed new problem with uncertain prognosis? @ -None Drug Therapy requiring intensive monitoring for toxicity (Heparin, Nitro, Insulin, Cardizem)? @ -None Were any procedures done? @ -None Diagnosis/symptom? @ -Multiple thoracic compression deformities Acute, or Chronic, or Acute on Chronic? @ -Acute Uncomplicated (without systemic symptoms) or Complicated (systemic symptoms)? @ -Uncomplicated Side effects of treatment? @ -None Exacerbation, Progression, or Severe Exacerbation] @ -Not applicable Poses a threat to life or bodily function? @ -Yes, the pain is limiting his function. Disposition Clinical Impression: Multiple fractures of thoracic spine, Nicotine dependence Disposition: HOME SELF-CARE Additional Instructions: Return to the emergency department with any new, worsening, or concerning symptoms. Start taking the Mobic once daily to help with pain. Take the oxycodone up to every 6 hours as needed for breakthrough pain. Try to use this sparingly. Follow-up with Dr. Holman as scheduled. Prescriptions: Meloxicam [Mobic] 15 mg PO DAILY PRN #30 tab PRN Reason: Pain oxyCODONE HCL/ACETAMINOPHEN [oxyCODONE HCL/ACETAMINOPHEN 5-325] 1 tab PO Q6H PRN 3 Days #12 tab PRN Reason: Breakthrough Pain Is patient prescribed a controlled substance at d/c from ED?: Yes When asked, does pt state using other controlled substances?: Yes If prescribed controlled substance>3 days was MAPS reviewed?: Prescribed <3 Days Referrals: Jermaine Holman DO [Doctor of Osteopathic Medicine] - 08/19/24 2:30 pm (You will be seen by ADILSON aPrra. You will recieve a text with instruction for new patient information. Please bring ID and insurance card.) Reta Sheppard MD [Primary Care Provider] - 1-2 days Time of Disposition: 13:21
[2024-08-06] MEDS: INSULIN ASPART (NovoLOG) 100 UNIT/ML VIAL SQ ONE ×2 (13:59→14:02)
[2024-08-06] MEDS: HYDROmorphone 1 MG/ML 1 ML SYRINGE IM STA ×2 (14:01→15:24)
== END 2024-08-06 15:30 | disposition home or self-care (01) ==
LOC: EC 11:08
DX: S22.059A Unspecified fracture of T5-T6 vertebra, initial encounter for closed fracture (principal); S22.069A Unspecified fracture of T7-T8 vertebra, initial encounter for closed fracture; S22.079A Unspecified fracture of T9-T10 vertebra, initial encounter for closed fracture; X58.XXXA Exposure to other specified factors, initial encounter; F17.200 Nicotine dependence, unspecified, uncomplicated; Z88.5 Allergy status to narcotic agent; Z88.6 Allergy status to analgesic agent; Z88.8 Allergy status to other drugs, medicaments and biological substances
CPT/HCPCS: 99284; 96372 ×2; 99406; J1171; 96361

== ENCOUNTER 2024-08-18 13:08 | Emergency (ER) | payer OTHER ==
[2024-08-18 13:18] VITALS: RESP 18
--- NOTE | 2024-08-18 13:35 | ED ---
Back Pain HPI - General Chief Complaint: Back Pain/Injury Stated Complaint: Back/chest pain Time Seen by Provider: 08/18/24 13:21 Source: patient, RN notes reviewed Mode of arrival: ambulatory Limitations: no limitations - History of Present Illness Initial Comments: 44-year-old male presents emergency department complaint increasing back pain. He has multiple fractures thoracic spine he had no new injuries no new complaints other than pain meds are not working today he is scheduled to see orthopedics tomorrow. Denies any bowel, bladder and cons retention denies any abdominal complaints no shortness of breath no other complaints. - Related Data Home Medications Medication Instructions Recorded Confirmed Haloperidol Decanoate [Haldol D] 200 mg IM Q21D 07/31/14 07/23/24 Levothyroxine Sodium [Synthroid] 50 mcg PO DAILY 12/07/19 07/23/24 lamoTRIgine [LaMICtal] 200 mg PO BID 12/07/19 07/23/24 lisinopriL 20 mg PO DAILY 12/07/19 07/23/24 metFORMIN HCL [Glucophage] 1,000 mg PO BID 12/07/19 07/23/24 Albuterol Sulfate [Albuterol 2 puff INHALATION RT-Q6H PRN 02/07/23 07/23/24 Sulfate Hfa] Fluticasone Propionate [Flovent 2 puff INHALATION RT-BID 02/07/23 07/23/24 Hfa 220 mcg] Gabapentin [Neurontin] 400 mg PO TID 02/07/23 07/23/24 Insulin NPH Hum/Reg Insulin Hm 20 unit SQ W/SUPPER 02/07/23 07/23/24 [humuLIN 70/30 Kwikpen] Insulin NPH Hum/Reg Insulin Hm 40 unit SQ W/BRKFST 02/07/23 07/23/24 [humuLIN 70/30 Kwikpen] Tamsulosin HCl [Flomax] 0.4 mg PO HS 02/07/23 07/23/24 lamoTRIgine [LaMICtal] 75 mg PO BID 02/07/23 07/23/24 sitaGLIPtin [Januvia] 100 mg PO DAILY 02/07/23 07/23/24 tiZANidine [Zanaflex] 4 mg PO TID PRN 02/07/23 07/23/24 traZODone HCL 225 mg PO HS 02/07/23 07/23/24 Ferrous Sulfate [Iron (65 MG 325 mg PO DAILY 02/09/24 07/23/24 Elemental)] Ergocalciferol [Vitamin D2 (1250 1,250 unit PO FR 03/30/24 07/23/24 Mcg = 18424 Iu)] Albuterol Nebulized [Ventolin 2.5 mg INHALATION RT-TID PRN 07/23/24 07/23/24 Nebulized] Atorvastatin [Lipitor] 40 mg PO HS 07/23/24 07/23/24 Cholecalciferol [Vitamin D3 (125 125 mcg PO DAILY 07/23/24 07/23/24 Mcg = 5000 Iu)] Famotidine [Pepcid] 40 mg PO BID 07/23/24 07/23/24 Lactulose 10 gm PO BID PRN 07/23/24 07/23/24 Magnesium Oxide [Mag-Ox] 400 mg PO DAILY 07/23/24 07/23/24 methocarbamoL [Robaxin] 1,000 mg PO TID 07/23/24 07/23/24 Previous Rx's Medication Instructions Recorded Budesonide-Formot 160-4.5 Mcg 2 puff INHALATION RT-BID #1 each 02/21/24 [Symbicort 160-4.5 Mcg Inhaler] Aspirin 81 mg PO DAILY tab 07/27/24 Brivaracetam [Briviact] 100 mg PO BID #60 07/27/24 Cyclobenzaprine [Flexeril] 10 mg PO TID PRN #30 tab 07/27/24 HYDROcodone/APAP 5-325MG [[place] 1 tab PO Q8HR PRN 7 Days #21 tab 07/27/24 5-325] Metoprolol Tartrate [Lopressor] 12.5 mg PO BID #60 tab 07/27/24 OXcarbazepine [Trileptal] 150 mg PO BID #60 tab 07/27/24 Sertraline [Zoloft] 100 mg PO DAILY #30 tab 07/27/24 Meloxicam [Mobic] 15 mg PO DAILY PRN #30 tab 08/06/24 oxyCODONE HCL/ACETAMINOPHEN 1 tab PO Q6H PRN 3 Days #12 tab 08/06/24 [oxyCODONE HCL/ACETAMINOPHEN 5-325] Allergies Allergy/AdvReac Type Severity Reaction Status Date / Time ketorolac [From Toradol] Allergy Abdominal Verified 08/18/24 13:18 Pain mirtazapine [From Remeron] Allergy Abdominal Verified 08/18/24 13:18 Pain pioglitazone [From Actos] Allergy Abdominal Verified 08/18/24 13:18 Pain acetaminophen AdvReac Nausea & Verified 08/18/24 13:18 [From Tylenol-Codeine #3] Vomiting codeine AdvReac Nausea & Verified 08/18/24 13:18 [From Tylenol-Codeine #3] Vomiting Review of Systems ROS Statement: Those systems with pertinent positive or pertinent negative responses have been documented in the HPI. ROS Other: All systems not noted in ROS Statement are negative. Past Medical History Past Medical History: Asthma, Chest Pain / Angina, COPD, CVA/TIA, Diabetes Mellitus, GERD/Reflux, Hyperlipidemia, Hypertension, Seizure Disorder, Skin Disorder Additional Past Medical History / Comment(s): IDDM type II, grand mal seizures, coughing from cigarettes, hemorrhoid, constipation/diarrhea, hx psoriasis, eczema, back pain, hydrocele. 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, [facility] foot surgery, sternum partially removed/muscle flap, lumbar puncture 10/03/23 Past Anesthesia/Blood Transfusion Reactions: No Reported Reaction Past Psychological History: Anxiety, Bipolar, Depression, Panic Disorder, Schizophrenia Smoking Status: Former smoker Past Alcohol Use History: Occasional Past Drug Use History: Marijuana - Past Family History Sister(s) Family Medical History: Cancer Mother Family Medical History: Cancer Father Family Medical History: Cancer General Exam Limitations: no limitations General appearance: alert, in no apparent distress Head exam: Present: atraumatic, normocephalic, normal inspection Eye exam: Present: normal appearance, PERRL, EOMI. Absent: scleral icterus, conjunctival injection, periorbital swelling ENT exam: Present: normal exam, mucous membranes moist Neck exam: Present: normal inspection, full ROM. Absent: tenderness, meningismus, lymphadenopathy Respiratory exam: Present: normal lung sounds bilaterally. Absent: respiratory distress, wheezes, rales, rhonchi, stridor Cardiovascular Exam: Present: regular rate, normal rhythm, normal heart sounds. Absent: systolic murmur, diastolic murmur, rubs, gallop, clicks Extremities exam: Present: normal inspection, full ROM, normal capillary refill. Absent: tenderness, pedal edema, joint swelling, calf tenderness Back exam: Present: tenderness, paraspinal tenderness, vertebral tenderness, other (Patient in TLSO brace) Course Vital Signs 08/18/24 08/18/24 13:13 14:00 Temperature 98.1 F 98.3 F Pulse Rate 96 92 Respiratory 18 18 Rate Blood Pressure 117/78 120/80 O2 Sat by Pulse 99 99 Oximetry Medical Decision Making - Medical Decision Making Was pt. sent in by a medical professional or institution (ADILSON Veliz, ROOMING HOUSE KEEPER, urgent care, hospital, or half-way...) When possible be specific @ -No Did you speak to anyone other than the patient for history (EMS, parent, family, police, friend...)? What history was obtained from this source @ -No Did you review nursing and triage notes (agree or disagree)? Why? @ -I reviewed and agree with nursing and triage notes Were old charts reviewed (outside hosp., previous admission, EMS record, old EKG, old radiological studies, urgent care reports/EKG's, half-way records)? Report findings @ -Reviewed recent imaging, inpatient records Differential Diagnosis (chest pain, altered mental status, abdominal pain women, abdominal pain men, vaginal bleeding, weakness, fever, dyspnea, syncope, headache, dizziness, GI bleed, back pain, seizure, CVA, palpatations, mental health, musculoskeletal)? @Differential Back Pain: Strain, zoster, cauda equina syndrome, epidural abscess, vertebral osteomyelitis, discitis, fracture, subluxation, disc herniation, DJD, spinal stenosis, dissection, AAA, pancreatitis, peptic ulcer disease, pyelonephritis, kidney stone, this is not meant to be an all-inclusive list. EKG interpreted by me (3pts min.). @ -None X-rays interpreted by me (1pt min.). @ -None done CT interpreted by me (1pt min.). @ -None done U/S interpreted by me (1pt. min.). @ -None done What testing was considered but not performed or refused? (CT, X-rays, U/S, labs)? Why? @ -None What meds were considered but not given or refused? Why? @ -None Did you discuss the management of the patient with other professionals (professionals i.e. , PA, ROOMING HOUSE KEEPER, lab, RT, psych nurse, medical social consultant, licensed staff mft, teacher, credit products officer, case loader operator)? Give summary @ -No Was smoking cessation discussed for >3mins.? @ -No Was critical care preformed (if so, how long)? @ -No Were there social determinants of health that impacted care today? How? (Homelessness, low income, unemployed, alcoholism, drug addiction, transportation, low edu. Level, literacy, decrease access to med. care, [place] [facility], rehab)? @ -No Was there de-escalation of care discussed even if they declined (Discuss DNR or withdrawal of care, Hospice)? DNR status @ -No What co-morbidities impacted this encounter? (DM, HTN, Smoking, COPD, CAD, Cancer, CVA, ARF, Chemo, Hep., AIDS, mental health diagnosis, sleep apnea, morbid obesity)? @ -None Was patient admitted / discharged? Hospital course, mention meds given and route, prescriptions, significant lab abnormalities, going to OR and other pertinent info. @ -Patient provided analgesics in the emergency department and for today he is scheduled see orthopedics tomorrow. Undiagnosed new problem with uncertain prognosis? @ -No Drug Therapy requiring intensive monitoring for toxicity (Heparin, Nitro, Insulin, Cardizem)? @ -No Were any procedures done? @ -No Diagnosis/symptom? @ -Back pain acute on chronic Acute, or Chronic, or Acute on Chronic? @ -Acute on chronic Uncomplicated (without systemic symptoms) or Complicated (systemic symptoms)? @ -Uncomplicated Side effects of treatment? @ -No Exacerbation, Progression, or Severe Exacerbation? @ -No Poses a threat to life or bodily function? How? (Chest pain, [place], [place], pneumonia, PE, COPD, DKA, ARF, appy, cholecystitis, CVA, Diverticulitis, Homicidal, Suicidal, threat to staff... and all critical care pts) @ -No Disposition Clinical Impression: Multiple fractures of thoracic spine Disposition: HOME SELF-CARE Condition: Stable Instructions (If sedation given, give patient instructions): Back Pain (ED) Additional Instructions: Please return to the Emergency Department if symptoms worsen or any other concerns. Is patient prescribed a controlled substance at d/c from ED?: No Referrals: Reta Sheppard MD [Primary Care Provider] - 1-2 days Time of Disposition: 13:35
[2024-08-18] MEDS: oxyCODONE-APAP 7.5-325MG 1 EACH TAB PO STA (13:53)
[2024-08-18] MEDS: HYDROmorphone 1 MG/ML 1 ML SYRINGE IM STA (13:54)
[2024-08-18 14:24] VITALS: BP 120/80; PULSE 92; TEMP 98.3
== END 2024-08-18 14:00 | disposition home or self-care (01) ==
LOC: EC 13:08
DX: S22.009A Unspecified fracture of unspecified thoracic vertebra, initial encounter for closed fracture (principal); X58.XXXA Exposure to other specified factors, initial encounter; Z87.891 Personal history of nicotine dependence; Z88.5 Allergy status to narcotic agent; Z88.6 Allergy status to analgesic agent; Z88.8 Allergy status to other drugs, medicaments and biological substances
CPT/HCPCS: 99283; 96372; J1171

== ENCOUNTER 2024-08-25 17:05 | Emergency (ER) | payer OTHER ==
[2024-08-25 18:24] VITALS: RESP 18
--- NOTE | 2024-08-25 19:14 | ED ---
General Adult HPI - General Chief complaint: Back Pain/Injury Stated complaint: pain management Time Seen by Provider: 08/25/24 18:45 Source: patient, RN notes reviewed, old records reviewed Mode of arrival: ambulatory Limitations: no limitations - History of Present Illness Initial comments: Patient is a 44-year-old male who presents emergency department complaining of chronic back pain. States he slipped and fell 2 days ago and since has had pain. States he slipped and fell on ice or something slippery. States he has been ambulatory since. Denies any urinary or bowel incontinence or retention. Denies any saddle paresthesias. Denies any lower extremity paralysis. Acute complaints. Is requesting pain medications. Does not want imaging. He does wear back brace and does follow-up with an boarding specialist. - Related Data Home Medications Medication Instructions Recorded Confirmed Haloperidol Decanoate [Haldol D] 200 mg IM Q21D 07/31/14 07/23/24 Levothyroxine Sodium [Synthroid] 50 mcg PO DAILY 12/07/19 07/23/24 lamoTRIgine [LaMICtal] 200 mg PO BID 12/07/19 07/23/24 lisinopriL 20 mg PO DAILY 12/07/19 07/23/24 metFORMIN HCL [Glucophage] 1,000 mg PO BID 12/07/19 07/23/24 Albuterol Sulfate [Albuterol 2 puff INHALATION RT-Q6H PRN 02/07/23 07/23/24 Sulfate Hfa] Fluticasone Propionate [Flovent 2 puff INHALATION RT-BID 02/07/23 07/23/24 Hfa 220 mcg] Gabapentin [Neurontin] 400 mg PO TID 02/07/23 07/23/24 Insulin NPH Hum/Reg Insulin Hm 20 unit SQ W/SUPPER 02/07/23 07/23/24 [humuLIN 70/30 Kwikpen] Insulin NPH Hum/Reg Insulin Hm 40 unit SQ W/BRKFST 02/07/23 07/23/24 [humuLIN 70/30 Kwikpen] Tamsulosin HCl [Flomax] 0.4 mg PO HS 02/07/23 07/23/24 lamoTRIgine [LaMICtal] 75 mg PO BID 02/07/23 07/23/24 sitaGLIPtin [Januvia] 100 mg PO DAILY 02/07/23 07/23/24 tiZANidine [Zanaflex] 4 mg PO TID PRN 02/07/23 07/23/24 traZODone HCL 225 mg PO HS 02/07/23 07/23/24 Ferrous Sulfate [Iron (65 MG 325 mg PO DAILY 02/09/24 07/23/24 Elemental)] Ergocalciferol [Vitamin D2 (1250 1,250 unit PO FR 03/30/24 07/23/24 Mcg = 85821 Iu)] Albuterol Nebulized [Ventolin 2.5 mg INHALATION RT-TID PRN 07/23/24 07/23/24 Nebulized] Atorvastatin [Lipitor] 40 mg PO HS 07/23/24 07/23/24 Cholecalciferol [Vitamin D3 (125 125 mcg PO DAILY 07/23/24 07/23/24 Mcg = 5000 Iu)] Famotidine [Pepcid] 40 mg PO BID 07/23/24 07/23/24 Lactulose 10 gm PO BID PRN 07/23/24 07/23/24 Magnesium Oxide [Mag-Ox] 400 mg PO DAILY 07/23/24 07/23/24 methocarbamoL [Robaxin] 1,000 mg PO TID 07/23/24 07/23/24 Previous Rx's Medication Instructions Recorded Budesonide-Formot 160-4.5 Mcg 2 puff INHALATION RT-BID #1 each 02/21/24 [Symbicort 160-4.5 Mcg Inhaler] Aspirin 81 mg PO DAILY tab 07/27/24 Brivaracetam [Briviact] 100 mg PO BID #60 07/27/24 Cyclobenzaprine [Flexeril] 10 mg PO TID PRN #30 tab 07/27/24 HYDROcodone/APAP 5-325MG [[place] 1 tab PO Q8HR PRN 7 Days #21 tab 07/27/24 5-325] Metoprolol Tartrate [Lopressor] 12.5 mg PO BID #60 tab 07/27/24 OXcarbazepine [Trileptal] 150 mg PO BID #60 tab 07/27/24 Sertraline [Zoloft] 100 mg PO DAILY #30 tab 07/27/24 Meloxicam [Mobic] 15 mg PO DAILY PRN #30 tab 08/06/24 oxyCODONE HCL/ACETAMINOPHEN 1 tab PO Q6H PRN 3 Days #12 tab 08/06/24 [oxyCODONE HCL/ACETAMINOPHEN 5-325] Lidocaine 4% Patch 1 patch TOPICAL DAILY PRN 14 Days 08/25/24 #14 patch Allergies Allergy/AdvReac Type Severity Reaction Status Date / Time ketorolac [From Toradol] Allergy Abdominal Verified 08/25/24 18:25 Pain mirtazapine [From Remeron] Allergy Abdominal Verified 08/25/24 18:25 Pain pioglitazone [From Actos] Allergy Abdominal Verified 08/25/24 18:25 Pain acetaminophen AdvReac Nausea & Verified 08/25/24 18:25 [From Tylenol-Codeine #3] Vomiting codeine AdvReac Nausea & Verified 08/25/24 18:25 [From Tylenol-Codeine #3] Vomiting Review of Systems ROS Statement: Those systems with pertinent positive or pertinent negative responses have been documented in the HPI. Review of Systems: CONST: Denies fever EYES: Denies blurry vision ENT: Denies nasal congestion C/V: Denies Chest pain RESP: Denies shortness of breath GI: Denies abdominal pain : Denies dysuria SKIN: Denies rash. MSK: Endorses back pain NEURO: Denies headache ROS Other: All systems not noted in ROS Statement are negative. Past Medical History Past Medical History: Asthma, Chest Pain / Angina, COPD, CVA/TIA, Diabetes Mellitus, GERD/Reflux, Hyperlipidemia, Hypertension, Seizure Disorder, Skin Disorder Additional Past Medical History / Comment(s): IDDM type II, grand mal seizures, coughing from cigarettes, hemorrhoid, constipation/diarrhea, hx psoriasis, eczema, back pain, hydrocele. 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 HEAD: Normal with no signs of head trauma. EYES: EOMI. ENT: Hearing grossly intact. RESPIRATORY: No respiratory distress. C/V: Regular rate and rhythm. ABD: Abdomen is nondistended. EXT: No obvious deformity. Tenderness to palpation of the paraspinal muscles bilaterally throughout the spine. Patient states this is chronic. SKIN: No rashes or lesions observed on exposed skin. NEURO: Alert and oriented. Limitations: no limitations Course Vital Signs 08/25/24 08/25/24 18:20 19:28 Temperature 97.6 F 97.8 F Pulse Rate 88 79 Respiratory 18 18 Rate Blood Pressure 106/71 110/78 O2 Sat by Pulse 98 100 Oximetry Medical Decision Making - Medical Decision Making Was pt. sent in by a medical professional or institution (, PA, SPORTS PSYCHOLOGIST, urgent care, hospital, or correction...) When possible be specific @ -No Did you speak to anyone other than the patient for history (EMS, parent, family, police, friend...)? What history was obtained from this source @ -No Did you review nursing and triage notes (agree or disagree)? Why? @ -I reviewed and agree with nursing and triage notes Were old charts reviewed (outside hosp., previous admission, EMS record, old EKG, old radiological studies, urgent care reports/EKG's, correction records)? Report findings @ -Reviewed old charts and has had multiple visits for similar complaints in the last month. Differential Diagnosis (chest pain, altered mental status, abdominal pain women, abdominal pain men, vaginal bleeding, weakness, fever, dyspnea, syncope, headache, dizziness, GI bleed, back pain, seizure, CVA, palpatations, mental health, musculoskeletal)? @ -Differential Musculoskeletal Muscular strain, contusion, ligament sprain, fracture, arthritis, septic arthritis, bursitis, cellulitis, muscle spasm, nerve compression, DVT, arterial occlusion, herpes zoster, electrolyte abnormality, tumor.... This is not meant to be in all inclusive list EKG interpreted by me (3pts min.). @ -None done X-rays interpreted by me (1pt min.). @ -None done CT interpreted by me (1pt min.). @ -None done U/S interpreted by me (1pt. min.). @ -None done What testing was considered but not performed or refused? (CT, X-rays, U/S, labs)? Why? @ -Considered imaging however patient declines and I believe this is reasonable as he frequently falls and has no obvious acute symptoms other than his chronic pain. No concern for cauda equina syndrome at this time. What meds were considered but not given or refused? Why? @ -None Did you discuss the management of the patient with other professionals (professionals i.e. , PA, SPORTS PSYCHOLOGIST, lab, RT, psych nurse, rn social work, dental prosthetist, teacher, tax compliance officer, test case developer)? Give summary @ -No Was smoking cessation discussed for >3mins.? @ -No Was critical care preformed (if so, how long)? @ -No Were there social determinants of health that impacted care today? How? (Homelessness, low income, unemployed, alcoholism, drug addiction, transportation, low edu. Level, literacy, decrease access to med. care, nursing home, rehab)? @ -No Was there de-escalation of care discussed even if they declined (Discuss DNR or withdrawal of care, Hospice)? DNR status @ -No What co-morbidities impacted this encounter? (DM, HTN, Smoking, COPD, CAD, Cancer, CVA, ARF, Chemo, Hep., AIDS, mental health diagnosis, sleep apnea, morbid obesity)? @ -Chronic back pain Was patient admitted / discharged? Hospital course, mention meds given and route, prescriptions, significant lab abnormalities, going to OR and other pertinent info. @ -Patient presents emergency department with acute on chronic back pain. No concern for cauda equina syndrome. Vital signs are within acceptable limits. Discussed possibility of imaging which she declined which I believe is reasonable. We will treat the pain with IM medications and patient will be discharged home. Recommended follow-up with his back specialist in the next 1 to 3 days. He was in agreement this plan. Vital signs within acceptable limits. I will provide the patient with a prescription for patches. I instructed the patient to follow up with their PCP in the next 1-3 days. That. I explained that the patient should return to the emergency department if they experience any worsening symptoms. Strict return precautions were discussed with the patient. The patient expressed understanding of these instructions. I answered all questions that the patient had. The patient was discharged home in good c ondition with their prescriptions and follow up information. Undiagnosed new problem with uncertain prognosis? @ -No Drug Therapy requiring intensive monitoring for toxicity (Heparin, Nitro, Insulin, Cardizem)? @ -No Were any procedures done? @ -No Diagnosis/symptom? @ -Back pain Acute, or Chronic, or Acute on Chronic? @ -Acute on chronic Uncomplicated (without systemic symptoms) or Complicated (systemic symptoms)? @ -Uncomplicated Side effects of treatment? @ -No Exacerbation, Progression, or Severe Exacerbation? @ -No Poses a threat to life or bodily function? How? (Chest pain, [place], [place], pneumonia, PE, COPD, DKA, ARF, appy, cholecystitis, CVA, Diverticulitis, Homicidal, Suicidal, threat to staff... and all critical care pts) @ -No Disposition Clinical Impression: Back pain Disposition: HOME SELF-CARE Condition: Good Additional Instructions: Follow-up with your boarding specialist for your chronic back pain. Follow-up with your PCP in the next 1 to 3 days. Return if worsening symptoms. Prescriptions: Lidocaine 4% Patch 1 patch TOPICAL DAILY PRN 14 Days #14 patch PRN Reason: Pain Is patient prescribed a controlled substance at d/c from ED?: No Referrals: Reta Sheppard MD [Primary Care Provider] - 1-2 days Time of Disposition: 19:14
[2024-08-25] MEDS: LIDOCAINE 4% PATCH TOPICAL STA (19:22)
[2024-08-25] MEDS: MORPHINE SULFATE 4 MG/ML SYRINGE IM STA (19:23)
[2024-08-25 19:30] VITALS: BP 110/78; PULSE 79; TEMP 97.8
== END 2024-08-25 19:28 | disposition home or self-care (01) ==
LOC: EC 17:05
DX: G89.29 Other chronic pain (principal); M54.9 Dorsalgia, unspecified; Z88.6 Allergy status to analgesic agent; Z88.5 Allergy status to narcotic agent; Z88.8 Allergy status to other drugs, medicaments and biological substances; Z87.891 Personal history of nicotine dependence
CPT/HCPCS: 99284; 96372; J2270

== ENCOUNTER 2024-09-06 23:03 | Observation (INO) | payer OTHER ==
[2024-09-06 23:15] LABS: Glucose,Whole Blood 160 mg/dL (70-110)
--- NOTE | 2024-09-06 23:16 | ED ---
Arrhythmia/Palpitations HPI - General Chief Complaint: Arrhythmia/Palpitations Stated Complaint: Chest Pain Time Seen by Provider: 09/06/24 23:13 Source: patient, EMS, RN notes reviewed, old records reviewed Mode of arrival: EMS Limitations: no limitations - History of Present Illness Initial Comments: This is a 44-year-old male well-known to this emergency department coming in as a transfer from outside facility where he presented with chest pain patient did have some persistent chest pain per EMS during travel, patient was found to be in ventricular tachycardia having long runs of ventricular tachycardia at outside facility patient is on amiodarone and currently without significant complaint MD Complaint: rapid heart beat, "heart racing", palpitations, irregular heart beat -: unknown Arrhythmia History: other Associated Symptoms: chest pain Treatments Prior to Arrival: amiodarone - Related Data Home Medications Medication Instructions Recorded Confirmed Haloperidol Decanoate [Haldol D] 200 mg IM Q21D 07/31/14 09/07/24 Levothyroxine Sodium [Synthroid] 50 mcg PO DAILY 12/07/19 09/07/24 lamoTRIgine [LaMICtal] 200 mg PO BID 12/07/19 09/07/24 lisinopriL 20 mg PO DAILY 12/07/19 09/07/24 metFORMIN HCL [Glucophage] 1,000 mg PO BID 12/07/19 09/07/24 Albuterol Sulfate [Albuterol 2 puff INHALATION RT-Q6H PRN 02/07/23 09/07/24 Sulfate Hfa] Gabapentin [Neurontin] 400 mg PO TID 02/07/23 09/07/24 Insulin NPH Hum/Reg Insulin Hm 20 unit SQ W/SUPPER 02/07/23 09/07/24 [humuLIN 70/30 Kwikpen] Insulin NPH Hum/Reg Insulin Hm 40 unit SQ W/BRKFST 02/07/23 09/07/24 [humuLIN 70/30 Kwikpen] Tamsulosin HCl [Flomax] 0.4 mg PO HS 02/07/23 09/07/24 lamoTRIgine [LaMICtal] 75 mg PO BID 02/07/23 09/07/24 sitaGLIPtin [Januvia] 100 mg PO DAILY 02/07/23 09/07/24 tiZANidine [Zanaflex] 4 mg PO TID 02/07/23 09/07/24 traZODone HCL 225 mg PO HS 02/07/23 09/07/24 Ferrous Sulfate [Iron (65 MG 325 mg PO DAILY 02/09/24 09/07/24 Elemental)] Ergocalciferol [Vitamin D2 (1250 1,250 unit PO FR 03/30/24 09/07/24 Mcg = 13015 Iu)] Albuterol Nebulized [Ventolin 2.5 mg INHALATION RT-TID PRN 07/23/24 09/07/24 Nebulized] Atorvastatin [Lipitor] 40 mg PO HS 07/23/24 09/07/24 Cholecalciferol [Vitamin D3 (125 125 mcg PO DAILY 07/23/24 09/07/24 Mcg = 5000 Iu)] Lactulose 10 gm PO BID PRN 07/23/24 09/07/24 Magnesium Oxide [Mag-Ox] 400 mg PO DAILY 07/23/24 09/07/24 Brivaracetam [Briviact] 50 mg PO BID 09/07/24 09/07/24 Clobetasol Propionate [Temovate 1 applic TOPICAL BID 09/07/24 09/07/24 0.05% Oint] Famotidine [Pepcid] 40 mg PO BID 09/07/24 09/07/24 HYDROcodone/APAP 10-325MG [[place] 1 tab PO Q6HR PRN 09/07/24 09/07/24 10-325] Metoprolol Tartrate [Lopressor] 12.5 mg PO BID 09/07/24 09/07/24 Midazolam [Nayzilam] 1 spray NASAL DIRECTED PRN 09/07/24 09/07/24 Mupirocin 2% Oint [Bactroban 2% 1 applic TOPICAL BID 09/07/24 09/07/24 Oint] OXcarbazepine [Trileptal] 150 mg PO DAILY 09/07/24 09/07/24 Sertraline HCl 150 mg PO DAILY 09/07/24 09/07/24 Tirzepatide [Mounjaro] 2.5 mg SQ TU 09/07/24 09/07/24 Previous Rx's Medication Instructions Recorded Budesonide-Formot 160-4.5 Mcg 2 puff INHALATION RT-BID #1 each 02/21/24 [Symbicort 160-4.5 Mcg Inhaler] Aspirin 81 mg PO DAILY tab 07/27/24 Cyclobenzaprine [Flexeril] 10 mg PO TID PRN #30 tab 07/27/24 Meloxicam [Mobic] 15 mg PO DAILY PRN #30 tab 08/06/24 Lidocaine 4% Patch 1 patch TOPICAL DAILY PRN 14 Days 08/25/24 #14 patch Allergies Allergy/AdvReac Type Severity Reaction Status Date / Time ketorolac [From Toradol] Allergy Abdominal Verified 08/25/24 18:25 Pain mirtazapine [From Remeron] Allergy Abdominal Verified 08/25/24 18:25 Pain pioglitazone [From Actos] Allergy Abdominal Verified 08/25/24 18:25 Pain acetaminophen AdvReac Nausea & Verified 08/25/24 18:25 [From Tylenol-Codeine #3] Vomiting codeine AdvReac Nausea & Verified 08/25/24 18:25 [From Tylenol-Codeine #3] Vomiting Review of Systems ROS Statement: Those systems with pertinent positive or pertinent negative responses have been documented in the HPI. ROS Other: All systems not noted in ROS Statement are negative. Past Medical History Past Medical History: Asthma, Chest Pain / Angina, COPD, CVA/TIA, Diabetes Mellitus, GERD/Reflux, Hyperlipidemia, Hypertension, Seizure Disorder, Skin Disorder Additional Past Medical History / Comment(s): IDDM type II, grand mal seizures, coughing from cigarettes, hemorrhoid, constipation/diarrhea, hx psoriasis, eczema, back pain, hydrocele. 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, [facility] foot surgery, sternum partially removed/muscle flap, lumbar puncture 10/03/23 Past Anesthesia/Blood Transfusion Reactions: No Reported Reaction Past Psychological History: Anxiety, Bipolar, Depression, Panic Disorder, Schi zophrenia Smoking Status: Former smoker Past Alcohol Use History: Occasional Past Drug Use History: Marijuana - Past Family History Sister(s) Family Medical History: Cancer Mother Family Medical History: Cancer Father Family Medical History: Cancer General Exam Limitations: no limitations General appearance: alert, in no apparent distress Head exam: Present: atraumatic, normocephalic, normal inspection Eye exam: Present: normal appearance, PERRL, EOMI. Absent: scleral icterus, conjunctival injection, periorbital swelling ENT exam: Present: normal exam, mucous membranes moist Neck exam: Present: normal inspection. Absent: tenderness, meningismus, lymphadenopathy Respiratory exam: Present: normal lung sounds bilaterally. Absent: respiratory distress, wheezes, rales, rhonchi, stridor Cardiovascular Exam: Present: regular rate, normal rhythm, normal heart sounds. Absent: systolic murmur, diastolic murmur, rubs, gallop, clicks GI/Abdominal exam: Present: soft, normal bowel sounds. Absent: distended, tenderness, guarding, rebound, rigid Extremities exam: Present: normal inspection, full ROM, normal capillary refill. Absent: tenderness, pedal edema, joint swelling, calf tenderness Back exam: Present: normal inspection Neurological exam: Present: alert, oriented X3, CN II-XII intact Psychiatric exam: Present: normal affect, normal mood Skin exam: Present: warm, dry, intact, normal color. Absent: rash Course Vital Signs 09/06/24 09/06/24 09/07/24 23:05 23:16 00:00 Temperature 98.7 F Pulse Rate 76 76 71 Respiratory 18 16 16 Rate Blood Pressure 136/91 136/91 127/91 O2 Sat by Pulse 97 96 95 Oximetry 09/07/24 09/07/24 09/07/24 02:00 03:08 05:36 Temperature Pulse Rate 77 69 73 Respiratory 18 16 18 Rate Blood Pressure 100/63 112/81 106/73 O2 Sat by Pulse 96 95 95 Oximetry 09/07/24 09/07/24 09/07/24 06:30 07:30 10:58 Temperature 97.6 F Pulse Rate 71 70 77 Respiratory 16 16 18 Rate Blood Pressure 104/80 101/73 119/84 O2 Sat by Pulse 96 96 97 Oximetry 09/07/24 09/07/24 09/07/24 13:04 16:17 18:00 Temperature Pulse Rate 74 77 80 Respiratory 16 18 17 Rate Blood Pressure 105/86 139/89 129/91 O2 Sat by Pulse 97 97 95 Oximetry 09/07/24 20:00 Temperature Pulse Rate 75 Respiratory 18 Rate Blood Pressure 123/76 O2 Sat by Pulse 97 [facility]xim[facility] - [facility] Reevaluation #1: 09/06/24 23:31 Medical records reviewed Reevaluation #2: 09/06/24 23:31 Patient is asymptomatic here in the ER Reevaluation #3: 09/06/24 23:32 Informed of results questions answered Reevaluation #4: Was pt. sent in by a medical professional or institution (, ADILSON, MEDICAL PHYSICS PROFESSOR, urgent care, hospital, or [facility]...) When possible be specific @ -no Did you speak to anyone other than the patient for history (EMS, parent, family, police, friend...)? What history was obtained from this source @ -no Did you review nursing and triage notes (agree or disagree)? Why? @ -agree Are old charts reviewed (outside hosp., previous admission, EMS record, old EKG, old radiological studies, urgent care reports/EKG's, [facility] records)? Report findings @ -yes Differential Diagnosis (chest pain, altered mental status, abdominal pain women, abdominal pain men, vaginal bleeding, weakness, fever, dyspnea, syncope, headache, dizziness, GI bleed, back pain, seizure, CVA, palpatations, mental health, musculoskeletal)? @ -prior EKG interpreted by me (3pts min.). @ -yes X-rays interpreted by me (1pt min.). @ -no CT interpreted by me (1pt min.). @ -no U/S interpreted by me (1pt. min.). @ -no What testing was considered but not performed or refused? (CT, X-rays, U/S, labs)? Why? @ -none What meds were considered but not given or refused? Why? @ -none Did you discuss the management of the patient with other professionals (professionals i.e. ADILSON Veliz, MEDICAL PHYSICS PROFESSOR, lab, RT, psych nurse, nephrology social worker, money room supervisor, teacher, commanding officer garage, wrapper caser)? Give summary @ -no Was smoking cessation discussed for >3mins.? @ -no Was critical care preformed (if so, how long)? @ -no Were there social determinants of health that impacted care today? How? (Homelessness, low income, unemployed, alcoholism, drug addiction, transportation, low edu. Level, literacy, decrease access to med. care, assisted, rehab)? @ -none Was there de-escalation of care discussed even if they declined (Discuss DNR or withdrawal of care, Hospice)? DNR status @ -no What co-morbidities impacted this encounter? (DM, HTN, Smoking, COPD, CAD, Cancer, CVA, ARF, Chemo, Hep., AIDS, mental health diagnosis, sleep apnea, morbid obesity)? @ -none Was patient admitted / discharged? Hospital course, mention meds given and route, prescriptions, significant lab abnormalities, going to OR and other pertinent info. @ - 44 male who we did accept in transfer for ventricular tachycardia and chest pain. Patient admitted for cardiac evaluation Admitted Undiagnosed new problem with uncertain prognosis? @ -no Drug Therapy requiring intensive monitoring for toxicity (Heparin, Nitro, Insulin, Cardizem)? @ -no Were any procedures done? @ -no Diagnosis/symptom? @ -Ventricular tachycardia and chest pain Acute, or Chronic, or Acute on Chronic? @ -Acute Uncomplicated (without systemic symptoms) or Complicated (systemic symptoms)? @ -Complicated Side effects of treatment? @ -no Exacerbation, Progression, or Severe Exacerbation? @ -exacerbation Poses a threat to life or bodily function? How? (Chest pain, USA, ID, pneumonia, PE, COPD, DKA, ARF, appy, cholecystitis, CVA, Diverticulitis, Homicidal, Suicidal, threat to staff... and all critical care pts) @ -yes ventricular tachycardia Reevaluation #5: Differential Chest Pain: Stable Angina, Unstable Angina, STEMI, NSTEMI Aortic Dissection, Pneumothorax, Musculoskeletal, Esophageal Spasm GERD, Cholecystitis, Pancreatitis, Zoster, this is not meant to be an all-inclusive list. - Consultations Consultation #1: Spoke with alis who agrees to admit this patient EKG Findings - EKG Comments: EKG Findings:: EKG is sinus 76 UT 159 QRS 83 QTc 394 - EKG Results: EKG: interpreted by JESSIE Medical Decision Making - Medical Decision Making 44 male who we did accept in transfer for ventricular tachycardia and chest pain. Patient admitted for cardiac evaluation - Lab Data Result diagrams: 09/07/24 03:23 09/07/24 03:23 Lab Results 09/06/24 Range/Units 23:13 POC Glucose (mg/dL) 160 H (70-110) mg/dL POC Glu Forms Designer ID Cosme Wagoner - EKG Data -: EKG Interpreted by Me Disposition Clinical Impression: Ventricular tachycardia, Hypomagnesemia, Chest pain Disposition: ADMITTED IP TO THIS HOSP Condition: Stable Is patient prescribed a controlled substance at d/c from ED?: No Time of Disposition: 23:45
[2024-09-06] MEDS ORDERED: NALOXONE 0.4 MG/ML 1 ML VIAL IV PRN (23:29)
[2024-09-06] MEDS: MORPHINE SULFATE 4 MG/ML SYRINGE IV PRN (23:42)
[2024-09-06] MEDS: MAGNESIUM SULFATE-D5W PMX 1 GM in DEXTROSE/WATER 1 100ML.BAG IVPB ONE (23:42)
[2024-09-06] MEDS: MAGNESIUM OXIDE 400 MG TAB PO STA (23:42)
[2024-09-06] MEDS: MAGNESIUM OXIDE 400 MG TAB PO SCH (23:55)
[2024-09-07] MEDS: NITROGLYCERIN OINT 1 INCH/GM PACKET TOPICAL SCH (03:00)
[2024-09-07] MEDS ORDERED: ALBUTEROL NEBULIZED 2.5 MG/3 ML INHALATION PRN ×2 (03:15)
[2024-09-07] MEDS ORDERED: DEXTROSE 50% SYRINGE 50 ML IVP PRN ×2 (03:18)
--- NOTE | 2024-09-07 03:21 | P.HPIM ---
History of Present Illness H&P Date: 09/07/24 Chief Complaint: Arrhythmia/palpitations Patient is a 44-year-old male with past medical history of asthma, COPD (not on oxygen at home), history of CVA/TIA, diabetes mellitus (not on home insulin), GERD, hyperlipidemia, hypertension, and seizure disorder presented to the em ergency department as a transfer from [facility] where he presented with acute nonsustained ventricular tachycardia and chest pain. Per ED note from [facility], patient was noted to be in ventricular tachycardia on the monitor at a rate of 200 bpm at around 9:15 PM last night. However repeat EKG at that facility did not capture the ventricular tachycardia. Patient was subsequently transferred to our facility for ICU monitoring as well as cardiology. Patient was recently hospitalized in July 2024 for acute back pain in the region of T6-T8 after he had about 6 episodes of seizures on 07/16/2024. Patient was seen at bedside in our facility and reported that about 5 days ago he started having a pressure-like, intermittent, substernal chest pain that radiated toward the back on the left side. Patient denies having anything like this before. Patient reported that he woke up with this chest pain and it has gotten worse over the past few days. The chest pain does get worse with palpation of his chest cavity, with pain most prominent on the left s trevor of his chest cavity. He reports a 10 out of 10 pain in terms of severity. Shot of morphine at [facility] did relieve the chest pain temporarily. Patient also reported shortness of breath, lightheadedness, dizziness since 5 days ago. Patient denies any fever, chills, nausea, vomiting, belly pain, diarrhea/constipation, palpitations, hematochezia, melena. Of note, patient's most recent echocardiogram was done on 07/24/2024 and it showed left ventricular ejection fraction of 60%. He also had a cardiac catheterization on 02/17/2024 which showed mild to moderate triple-vessel coronary artery disease. ED documentation reviewed. In the ED patient was treated with magnesium oxide 400 mg p.o. x 1, magnesium sulfate 1 g Vitals on admission temperature 98.7, pulse rate 71, respiratory rate 16, blood pressure 127/91, O2 sat 95% on room air EKG independently interpreted as sinus rhythm with ventricular rate of 76 bpm, QTc interval 394 ms, low QRS voltage in precordial leads Chest x-ray at [facility] shows no acute cardiopulmonary disease/process. Prominent interstitial markings are likely related to a chronic process. Labs on admission show glucose of 160, troponin less than 0.012 Review of systems: Pertinent positives and negatives as discussed in HPI, a complete review of systems was performed and all other systems are negative. PMH: asthma, COPD (not on oxygen at home), history of CVA/TIA, diabetes mellitus (not on home insulin), GERD, hyperlipidemia, hypertension, and seizure disorder PSH: Hernia repair, orthopedic surgery, tonsillectomy FMH: Samira had a history of diabetes Allergies: Ketorolac, mirtazapine, pioglitazone, acetaminophen, codeine Social history: Tobacco: Heavy smoker more than 3 packs a day for the past 30 years. Quit smoking about 7 months ago. Alcohol: Socially Recreational drugs: Marijuana Travel: No recent travel history Sick contacts: No recent sick contacts Physical examination: Vital signs reviewed General: nontoxic, no distress, appears at stated age Derm: warm, dry, intact Head: atraumatic, normocephalic, symmetric Eyes: EOMI, anicteric sclera Mouth: no lip lesion, mucus membranes moist Cardiovascular: S1 S2 reg, no murmur Lungs: CTA bilateral, no rhonchi, no rales, no accessory muscle use Musculoskeletal: Left chest wall tender to palpation Abdominal: soft, tender to palpation in the periumbilical region, no distention, no rebound tenderness Extremities: No cyanosis, clubbing, or pedal edema. Neuro: Alert, Oriented to time, place, person, Gross neurological examination did not reveal any focal deficits. Nerves II to XII grossly intact. Bilateral upper and lower extremity muscle strength 5 out of 5 and strength intact. Psych: well appearing, appropriate affect Assessment/Plan: Patient is a 44-year-old male with past medical history of asthma, COPD (not on oxygen at home), history of CVA/TIA, diabetes mellitus (not on home insulin), GERD, hyperlipidemia, hypertension, and seizure disorder presented to the emerg ency department as a transfer from [facility] where he presented with acute nonsustained ventricular tachycardia and chest pain. Patient will be admitted to inpatient medicine service. Active: #. Chest pain with atypical features, rule out ACS #. Chest pain likely due to costochondritis Continue cardiac monitoring Consult cardiology Troponin less than 0.012 Trend troponin Resume atorvastatin 40 mg daily Resume aspirin 81 mg daily Order BMP and CBC #. Acute nonsustained ventricular tachycardia Patient received a bolus of amiodarone at [facility] EKG showed sinus rhythm with ventricular rate of 76 bpm, QTc interval of 394 ms, low QRS voltage in precordial leads Continue cardiac monitoring Consult cardiology Obtain BMP and CBC to rule out arrhythmia due to electrolyte derangements Check magnesium and phosphorus level #. Hyperglycemia, history of diabetes mellitus Patient does not use insulin at home Glucose of 160 Initiate low-dose sliding scale insulin Chronic: #. GERD Restart Pepcid 40 mg twice daily #. Hyperlipidemia Restart home Lipitor 40 mg daily #. Hypertension Restart lisinopril 20 mg daily and metoprolol tartrate 12.5 mg twice daily #. Seizure disorder Restart lamotrigine 275 mg twice daily, oxcarbazepine 150 mg twice daily, Brivaracetam 100 mg twice daily #. Hypothyroidism Start home levothyroxine 50 mcg daily #. History of asthma Restart Flovent 2 puff twice daily #. COPD Restart Symbicort 2 puff twice daily F: No restrictions E: Replete as needed N: Heart healthy diet A: EMS DVT PPX heparin sc 5000 units tid blood work pending , no blood work is available from the other facility The patient is admitted with an anticipated less than 2 midnight stay for evaluation of chest pain CODE STATUS: Full code Discussed with: Patient Anticipated discharge place: Home I have seen and evaluated the patient today. I Discussed the case with the resident and agree with the resident's findings I edited the assessment and plan as necessary as documented in the resident's note. Past Medical History Past Medical History: Asthma, Chest Pain / Angina, COPD, CVA/TIA, Diabetes Mellitus, GERD/Reflux, Hyperlipidemia, Hypertension, Seizure Disorder, Skin Disorder Additional Past Medical History / Comment(s): IDDM type II, grand mal seizures, coughing from cigarettes, hemorrhoid, constipation/diarrhea, hx psoriasis, eczema, back pain, hydrocele. 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, [facility] foot surgery, sternum partially removed/muscle flap, lumbar puncture 10/03/23 Past Anesthesia/Blood Transfusion Reactions: No Reported Reaction Past Psychological History: Anxiety, Bipolar, Depression, Panic Disorder, Schi zophrenia Smoking Status: Former smoker Past Alcohol Use History: Occasional Past Drug Use History: Marijuana - Past Family History Sister(s) Family Medical History: Cancer Mother Family Medical History: Cancer Father Family Medical History: Cancer Medications and Allergies Home Medications Medication Instructions Recorded Confirmed Type Haloperidol Decanoate [Haldol D] 200 mg IM Q21D 07/31/14 07/23/24 History Levothyroxine Sodium [Synthroid] 50 mcg PO DAILY 12/07/19 07/23/24 History lamoTRIgine [LaMICtal] 200 mg PO BID 12/07/19 07/23/24 History lisinopriL 20 mg PO DAILY 12/07/19 07/23/24 History metFORMIN HCL [Glucophage] 1,000 mg PO BID 12/07/19 07/23/24 History Albuterol Sulfate [Albuterol 2 puff INHALATION RT-Q6H PRN 02/07/23 07/23/24 History Sulfate Hfa] Fluticasone Propionate [Flovent 2 puff INHALATION RT-BID 02/07/23 07/23/24 History Hfa 220 mcg] Gabapentin [Neurontin] 400 mg PO TID 02/07/23 07/23/24 History Insulin NPH Hum/Reg Insulin Hm 20 unit SQ W/SUPPER 02/07/23 07/23/24 History [humuLIN 70/30 Kwikpen] Insulin NPH Hum/Reg Insulin Hm 40 unit SQ W/BRKFST 02/07/23 07/23/24 History [humuLIN 70/30 Kwikpen] Tamsulosin HCl [Flomax] 0.4 mg PO HS 02/07/23 07/23/24 History lamoTRIgine [LaMICtal] 75 mg PO BID 02/07/23 07/23/24 History sitaGLIPtin [Januvia] 100 mg PO DAILY 02/07/23 07/23/24 History tiZANidine [Zanaflex] 4 mg PO TID PRN 02/07/23 07/23/24 History traZODone HCL 225 mg PO HS 02/07/23 07/23/24 History Ferrous Sulfate [Iron (65 MG 325 mg PO DAILY 02/09/24 07/23/24 History Elemental)] Budesonide-Formot 160-4.5 Mcg 2 puff INHALATION RT-BID #1 each 02/21/24 07/23/24 Rx [Symbicort 160-4.5 Mcg Inhaler] Ergocalciferol [Vitamin D2 (1250 1,250 unit PO FR 03/30/24 07/23/24 History Mcg = 67363 Iu)] Albuterol Nebulized [Ventolin 2.5 mg INHALATION RT-TID PRN 07/23/24 07/23/24 History Nebulized] Atorvastatin [Lipitor] 40 mg PO HS 07/23/24 07/23/24 History Cholecalciferol [Vitamin D3 (125 125 mcg PO DAILY 07/23/24 07/23/24 History Mcg = 5000 Iu)] Famotidine [Pepcid] 40 mg PO BID 07/23/24 07/23/24 History Lactulose 10 gm PO BID PRN 07/23/24 07/23/24 History Magnesium Oxide [Mag-Ox] 400 mg PO DAILY 07/23/24 07/23/24 History methocarbamoL [Robaxin] 1,000 mg PO TID 07/23/24 07/23/24 History Aspirin 81 mg PO DAILY tab 07/27/24 Rx Brivaracetam [Briviact] 100 mg PO BID #60 07/27/24 Rx Cyclobenzaprine [Flexeril] 10 mg PO TID PRN #30 tab 07/27/24 Rx HYDROcodone/APAP 5-325MG [[place] 1 tab PO Q8HR PRN 7 Days #21 tab 07/27/24 Rx 5-325] Metoprolol Tartrate [Lopressor] 12.5 mg PO BID #60 tab 07/27/24 Rx OXcarbazepine [Trileptal] 150 mg PO BID #60 tab 07/27/24 Rx Sertraline [Zoloft] 100 mg PO DAILY #30 tab 07/27/24 Rx Meloxicam [Mobic] 15 mg PO DAILY PRN #30 tab 08/06/24 Rx oxyCODONE HCL/ACETAMINOPHEN 1 tab PO Q6H PRN 3 Days #12 tab 08/06/24 Rx [oxyCODONE HCL/ACETAMINOPHEN 5-325] Lidocaine 4% Patch 1 patch TOPICAL DAILY PRN 14 Days 08/25/24 Rx #14 patch Allergies Allergy/AdvReac Type Severity Reaction Status Date / Time ketorolac [From Toradol] Allergy Abdominal Verified 08/25/24 18:25 Pain mirtazapine [From Remeron] Allergy Abdominal Verified 08/25/24 18:25 Pain pioglitazone [From Actos] Allergy Abdominal Verified 08/25/24 18:25 Pain acetaminophen AdvReac Nausea & Verified 08/25/24 18:25 [From Tylenol-Codeine #3] Vomiting codeine AdvReac Nausea & Verified 08/25/24 18:25 [From Tylenol-Codeine #3] Vomiting Physical Exam Vitals: Vital Signs Temp Pulse Resp BP Pulse Ox 09/06/24 23:05 98.7 F 76 18 136/91 97 Intake and Output 09/06/24 09/06/24 09/07/24 14:59 22:59 06:59 Other: Weight 79.379 kg Results CBC & Chem 7: 09/07/24 03:23 09/07/24 03:23 Labs: Abnormal Lab Results - Last 24 Hours (Table) 09/06/24 Range/Units 23:13 POC Glucose (mg/dL) 160 H (70-110) mg/dL
[2024-09-07 03:47] LABS: ALT 43 U/L (4-49); AST 33 U/L (17-59); African American GFR (CKD) >90 (>60 ml/min/1.73 sqM); Albumin 4.6 g/dL (3.5-5.0); Alkaline Phosphatase 85 U/L (38-126); Anion Gap 6 mmol/L; Blood Urea Nitrogen 15 mg/dL (9-20); Calcium 9.7 mg/dL (8.4-10.2); Carbon Dioxide 28 mmol/L (22-30); Chloride 101 mmol/L (98-107); Glucose 139 mg/dL (74-99); Magnesium 2.1 mg/dL (1.6-2.3); Non-African American GFR(CKD) >90 (>60 ml/min/1.73 sqM); Phosphorus 4.5 mg/dL (2.5-4.5); Potassium 4.5 mmol/L (3.5-5.1); Sodium 135 mmol/L (137-145); Total Bilirubin 0.2 mg/dL (0.2-1.3); Total Protein 7.4 g/dL (6.3-8.2)
[2024-09-07 04:35] LABS: Anisocytosis Moderate; Basophils % (A) 1 %; Eosinophils # (A) 0.5 k/uL (0-0.7); Eosinophils % (A) 6 %; HCT 35.6 % (39.0-53.0); HGB 11.5 gm/dL (13.0-17.5); Lymphocytes # (A) 1.4 k/uL (1.0-4.8); Lymphocytes % (A) 17 %; MCH 25.2 pg (25.0-35.0); MCHC 32.4 g/dL (31.0-37.0); MCV 77.9 fL (80.0-100.0); Mean Platelet Volume 7.2; Microcytosis Marked; Monocytes # (A) 0.7 k/uL (0-1.0); Monocytes % (A) 8 %; Neutrophils # (A) 5.5 k/uL (1.3-7.7); Neutrophils % (A) 65 %; Platelet Count 206 k/uL (150-450); RBC 4.57 m/uL (4.30-5.90); RDW 22.8 % (11.5-15.5); WBC 8.4 k/uL (3.8-10.6)
[2024-09-07 05:30] LABS: Glucose,Whole Blood 134 mg/dL (70-110)
[2024-09-07] MEDS: LEVOTHYROXINE 50 MCG TAB PO SCH (06:25)
[2024-09-07] MEDS: HEPARIN SODIUM,PORCINE 5,000 UNIT/ML 1 ML VIAL SQ SCH (07:33)
[2024-09-07] MEDS: SYMBICORT 160-4.5 MCG INHALER INHALATION SCH (07:54)
[2024-09-07] MEDS ORDERED: FLUTICASONE 110 MCG INHALER INHALATION SCH (08:00)
[2024-09-07] MEDS ORDERED: NITROGLYCERIN OINT 1 INCH/GM PACKET TOPICAL SCH (08:00)
[2024-09-07] MEDS: METOPROLOL TARTRATE 12.5 MG TAB PO SCH (08:21)
[2024-09-07] MEDS: ASPIRIN 81 MG PO SCH (08:21)
[2024-09-07] MEDS: lamoTRIgine 25 MG TAB PO SCH (08:23)
[2024-09-07] MEDS: FAMOTIDINE 20 MG TAB PO SCH ×2 (08:24→22:12)
[2024-09-07] MEDS: lamoTRIgine 100 MG TAB PO SCH (08:25)
[2024-09-07] MEDS: lisinopriL 20 MG TAB PO SCH (08:25)
[2024-09-07] MEDS: INSULIN ASPART (NovoLOG) 100 UNIT/ML VIAL SQ SCH (08:27)
[2024-09-07] MEDS: NON FORMULARY DRUG (Brivaracetam [Briviact] 100 MG) PO SCH (08:28)
[2024-09-07] MEDS: PANTOPRAZOLE 40 MG/10 ML VIAL IV SCH (08:29)
[2024-09-07] MEDS: OXcarbazepine 150 MG TAB PO SCH (08:30)
[2024-09-07] MEDS ORDERED: HYDROcodone/APAP 10-325MG 1 EACH TAB PO PRN (11:19)
[2024-09-07] MEDS ORDERED: CYCLOBENZAPRINE 10 MG TAB PO PRN (11:19)
[2024-09-07 11:33] LABS: Amphetamine Screen,Urine Not Detected (NotDetected); Barbiturate Screen,Urine Not Detected (NotDetected); Benzodiazepines Screen,Urine Not Detected (NotDetected); Cocaine Screen,Urine Not Detected (NotDetected); Methadone Screen, Urine Not Detected (NotDetected); Opiate Screen,Urine Detected (NotDetected); Oxycodone Screen, Urine Not Detected (NotDetected); Phencyclidine Screen,Urine Not Detected (NotDetected); Tricyclic Antidepressant,Urine Not Detected (NotDetected); Urn Cannabinoid Scrn Not Detected (NotDetected)
[2024-09-07] MEDS: Brivaracetam [Briviact] 50 MG Tablet PO SCH (11:46)
[2024-09-07 11:53] LABS: Glucose,Whole Blood 166 mg/dL (70-110)
[2024-09-07] MEDS: LIDOCAINE 4% PATCH TOPICAL SCH (13:06)
--- NOTE | 2024-09-07 13:20 | P.PN ---
Subjective Progress Note Date: 09/07/24 Hospital course: Patient is a very pleasant 44-year-old male with a past medical history of hypertension, hyperlipidemia, asthma/COPD not home oxygen dependent, former smoker, insulin-dependent diabetes mellitus, seizure disorder, anxiety with depression, bipolar disorder, panic disorder, and schizophrenia. He presented to the emergency department as a transfer from [facility] where he initially presented with chest pain and found to have acute nonsustained V. tach. Per documentation in chart patient was found to be in ventricular tachycardia with heart rate 200 bpm, however upon obtaining EKG it did not capture event as patient converted to normal sinus rhythm prior to completion of EKG. Upon transfer to our facility, patient underwent evaluation in our emergency department. Vital signs upon arrival show blood pressure 136/91, heart rate 76, respiratory rate 18, temp 98.7 F, and SpO2 of 97% on room air. EKG was completed showing normal sinus rhythm at 76 bpm with T wave inversion in lead III otherwise no ST abnormality showing no signs of acute ischemia upon personal review and interpretation. Labs completed and reviewed. CBC showing microcytic anemia with hemoglobin of 11.5 and MCV of 77.9. BMP showing sodium 135, potassium 4.5, renal function unremarkable. Blood glucose 139. Magnesium 2.1. Liver profile unremarkable. Troponin was negative at less than 0.012. Patient was admitted under our services with consultation to car diology. Physical exam: Patient seen and fully evaluated at bedside. He was sitting up in bed reports continued pain to midsternal chest pain radiating into bilateral sides of his chest. Patient reports pain is constant and unrelenting and states so far nothing has helped that is why he came to the hospital. He denies experiencing any palpitations, shortness of breath, cough or congestion, or any other complaints. Nitro patch in place. Vital signs reviewed and stable. General: Nontoxic, no distress and appears stated age. Derm: Skin warm and dry, normal coloration for ethnicity. Head: Atraumatic, normocephalic and symmetric. Eyes: EOM's intact, no lid lag, and anicteric sclera Mouth: no lip lesions, mucus membranes moist Cardiovascular: regular rate and rhythm with normal S1S2, no murmur, positive posterior tibial pulses bilaterally, and cap refill < 2 seconds. Lungs: Respirations even, regular, and unlabored on room air. Lungs CTA bilaterally, no rhonchi, no rales, no wheezing, and no accessory muscle usage. Abdominal: soft, nontender to palpation, no guarding, no appreciable organomegaly Ext: ROM intact. No gross muscle atrophy, no edema, no contractures Neuro: Speech clear, face symmetrical and CN II-XII grossly intact with no noted focal neuro deficits Psych: Alert and oriented to person, place, time, and situation. Appropriate and pleasant affect. Assessment and Plan of Care: Reports of nonsustained V. tach Chest pain, rule out acute coronary event Hypertension Hyperlipidemia -Cardiology consulted, appreciate recommendations -Telemetry monitoring -Troponins negative at less than 0.012 x 2 draws. -Continue cardiac medication regimen with aspirin 81 mg daily, atorvastatin 40 mg daily, lisinopril 20 mg daily, and metoprolol 12.5 mg twice daily -Order placed for TSH with reflex free T4 -Order placed for urine drug screen Hypothyroidism -Continue levothyroxine 50 mcg daily. Follow-up on TSH with reflex free T4. COPD/asthma -Not home oxygen dependent currently maintaining SpO2 on room air. Patient to continue Symbicort 160-4.5 mcg inhaler 2 puffs twice daily and Ventolin every 6 hours as needed for shortness of breath and/or wheezing. Insulin-dependent diabetes mellitus -Continue glycemic protocol with NovoLog sliding scale. Seizure disorder -Continue brivaracetam 50 mg twice daily Lamictal 275 mg twice daily, and oxcarbazepine 150 mg twice daily. Anxiety with depression Bipolar disorder Panic disorder Schizophrenia -Continue sertraline 150 mg daily, Neurontin 400 mg 3 times daily, brivaracetam 50 mg twice daily Lamictal 275 mg twice daily, and oxcarbazepine 150 mg twice daily. CODE STATUS: Full code DVT prophylaxis: Heparin Anticipated discharge date: Pending clinical course likely 24 to [address]: Home Patient was seen independently by Nurse Pracitioner. This document was prepared using [employer] dictation software. Please allow for errors in hadoop developer, while rare they do occur. Po Perkins NP rendered care for this patient independently, reviewed the findings and plan as documented in the note above and agree with plan. I did not physically speak with or examine the patient on this date. Objective - Vital Signs Vital signs: Vital Signs Temp 97.6 F 09/07/24 07:30 Pulse 70 09/07/24 07:30 Resp 16 09/07/24 07:30 BP 101/73 09/07/24 07:30 Pulse Ox 96 09/07/24 07:30 FiO2 Intake & Output 09/06/24 09/07/24 09/07/24 18:59 06:59 18:59 Weight 79.379 kg - Labs CBC & Chem 7: 09/07/24 03:23 09/07/24 03:23 Labs: Abnormal Lab Results - Last 24 Hours (Table) 09/06/24 09/07/24 09/07/24 Range/Units 23:13 03:23 03:23 Hgb 11.5 L (13.0-17.5) gm/dL Hct 35.6 L (39.0-53.0) % MCV 77.9 L (80.0-100.0) fL RDW 22.8 H (11.5-15.5) % Sodium 135 L (137-145) mmol/L Glucose 139 H (74-99) mg/dL POC Glucose (mg/dL) 160 H (70-110) mg/dL 09/07/24 Range/Units 05:29 Hgb (13.0-17.5) gm/dL Hct (39.0-53.0) % MCV (80.0-100.0) fL RDW (11.5-15.5) % Sodium (137-145) mmol/L Glucose (74-99) mg/dL POC Glucose (mg/dL) 134 H (70-110) mg/dL
[2024-09-07] MEDS: GABAPENTIN 400 MG CAP PO SCH (16:21)
[2024-09-07 17:56] LABS: Glucose,Whole Blood 149 mg/dL (70-110)
[2024-09-07 21:48] LABS: Glucose,Whole Blood 138 mg/dL (70-110)
[2024-09-07] MEDS: TAMSULOSIN 0.4 MG CAP.ER.24H PO SCH (22:11)
[2024-09-07] MEDS: ATORVASTATIN 40 MG TAB PO SCH (22:12)
--- NOTE | 2024-09-07 22:20 | P.CRDCN ---
History of Present Illness Consult date: 09/07/24 History of present illness: HISTORY OF PRESENTING ILLNESS 44-year-old male with past medical history of hypertension, dyslipidemia, asthma, COPD, seizure disorder, anxiety and depression, bipolar disorder and panic disorder. She also has schizophrenia. He initially presented to [facility] because of concerns of chest pain. In ER he was found to have nonsustained ventricular tachycardia for which she was sent to the [facility]. In July this patient was hospitalized at [facility] because of increasing chest pain and back pain symptoms. Before this admission he has had multiple hospital admissions for chest pain for which she required a cardiac catheterization procedure done. Cardiac catheterization only showed mild to moderate CAD. During last hospital admission he had deep T wave inversions in anterolateral leads and he was admitted with concerns of syncope. His echocardiogram showed EF of 60% with no major valvular abnormality. REVIEW OF SYSTEMS 14 point review of system is negative except what is mentioned above in HPI. PHYSICAL EXAMINATION Vital signs reviewed. Head: Normocephalic. Eyes: Sclerae nonicteric. Neck: Brisk carotid upstroke, no jugular venous distention. Lungs: Clear to auscultation. Heart: Regular rate and rhythm, S1-S2, no S3, no murmur or rub. Abdomen: Soft nontender, positive bowel sounds. Extremities: No edema, intact distal pulses. Neuro: Alert, oritented, no focal deficits. Detailed neuro exam was not performed. ASSESSMENT Nonsustained atrial tachycardia in [facility] ER. No repeated sustained arrhythmias on telemetry. Mild to moderate CAD, prior cardiac cath in February 2024 Preserved LVEF on echocardiogram Prior history of deep T wave inversions with QTc prolongation in July 2024, resolved on current admission. Recurrent back pain and chest pain. Multiple seizures in July 2024. MRI showed endplate compression fracture of T5-T6 T8 and T9. Bipolar disorder Schizophrenia PLAN On last admission patient was given a 30-day event monitor which most likely patient lost. We do not see any report of event monitor or Holter monitor in the medical records. Continue to monitor patient on telemetry. So far I do not see any sustained or nonsustained ventricular tachycardia I would refrain from using amiodarone or any other medications that would cause QTc prolonged ration. He had QTc prolongation in July 2024. QTc appears to be within normal range on current admission. The T wave inversions have resolved, which were most likely related to patient's seizure episode in July 2024. If no further arrhythmias or nonsustained ventricular tachycardia's, consider clearing from cardiovascular standpoint. I would continue metoprolol 12.5 mg t wice daily, aspirin 81 mg, Lipitor 40 mg. Rowdy Gonzalez MD, [facility], [facility] Thank you for allowing [facility] to participate in this patient's care. Feel free to reach out in case of any followup questions. Past Medical History Past Medical History: Asthma, Chest Pain / Angina, COPD, CVA/TIA, Diabetes Mellitus, GERD/Reflux, Hyperlipidemia, Hypertension, Seizure Disorder, Skin Disorder Additional Past Medical History / Comment(s): IDDM type II, grand mal seizures, coughing from cigarettes, hemorrhoid, constipation/diarrhea, hx psoriasis, eczema, back pain, hydrocele. 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, [place] foot surgery, sternum partially removed/muscle flap, lumbar puncture 10/03/23 Past Anesthesia/Blood Transfusion Reactions: No Reported Reaction Past Psychological History: Anxiety, Bipolar, Depression, Panic Disorder, Schizophrenia Smoking Status: Former smoker Past Alcohol Use History: Occasional Past Drug Use History: Marijuana - Past Family History Sister(s) Family Medical History: Cancer Mother Family Medical History: Cancer Father Family Medical History: Cancer Medications and Allergies Home Medications Medication Instructions Recorded Confirmed Type Haloperidol Decanoate [Haldol D] 200 mg IM Q21D 07/31/14 09/07/24 History Levothyroxine Sodium [Synthroid] 50 mcg PO DAILY 12/07/19 09/07/24 History lamoTRIgine [LaMICtal] 200 mg PO BID 12/07/19 09/07/24 History lisinopriL 20 mg PO DAILY 12/07/19 09/07/24 History metFORMIN HCL [Glucophage] 1,000 mg PO BID 12/07/19 09/07/24 History Albuterol Sulfate [Albuterol 2 puff INHALATION RT-Q6H PRN 02/07/23 09/07/24 History Sulfate Hfa] Gabapentin [Neurontin] 400 mg PO TID 02/07/23 09/07/24 History Insulin NPH Hum/Reg Insulin Hm 20 unit SQ W/SUPPER 02/07/23 09/07/24 History [humuLIN 70/30 Kwikpen] Insulin NPH Hum/Reg Insulin Hm 40 unit SQ W/BRKFST 02/07/23 09/07/24 History [humuLIN 70/30 Kwikpen] Tamsulosin HCl [Flomax] 0.4 mg PO HS 02/07/23 09/07/24 History lamoTRIgine [LaMICtal] 75 mg PO BID 02/07/23 09/07/24 History sitaGLIPtin [Januvia] 100 mg PO DAILY 02/07/23 09/07/24 History tiZANidine [Zanaflex] 4 mg PO TID 02/07/23 09/07/24 History traZODone HCL 225 mg PO HS 02/07/23 09/07/24 History Ferrous Sulfate [Iron (65 MG 325 mg PO DAILY 02/09/24 09/07/24 History Elemental)] Budesonide-Formot 160-4.5 Mcg 2 puff INHALATION RT-BID #1 each 02/21/24 09/07/24 Rx [Symbicort 160-4.5 Mcg Inhaler] Ergocalciferol [Vitamin D2 (1250 1,250 unit PO FR 03/30/24 09/07/24 History Mcg = 48571 Iu)] Albuterol Nebulized [Ventolin 2.5 mg INHALATION RT-TID PRN 07/23/24 09/07/24 History Nebulized] Atorvastatin [Lipitor] 40 mg PO HS 07/23/24 09/07/24 History Cholecalciferol [Vitamin D3 (125 125 mcg PO DAILY 07/23/24 09/07/24 History Mcg = 5000 Iu)] Lactulose 10 gm PO BID PRN 07/23/24 09/07/24 History Magnesium Oxide [Mag-Ox] 400 mg PO DAILY 07/23/24 09/07/24 History Aspirin 81 mg PO DAILY tab 07/27/24 09/07/24 Rx Cyclobenzaprine [Flexeril] 10 mg PO TID PRN #30 tab 07/27/24 09/07/24 Rx Meloxicam [Mobic] 15 mg PO DAILY PRN #30 tab 08/06/24 09/07/24 Rx Lidocaine 4% Patch 1 patch TOPICAL DAILY PRN 14 Days 08/25/24 09/07/24 Rx #14 patch Brivaracetam [Briviact] 50 mg PO BID 09/07/24 09/07/24 History Clobetasol Propionate [Temovate 1 applic TOPICAL BID 09/07/24 09/07/24 History 0.05% Oint] Famotidine [Pepcid] 40 mg PO BID 09/07/24 09/07/24 History HYDROcodone/APAP 10-325MG [[place] 1 tab PO Q6HR PRN 09/07/24 09/07/24 History 10-325] Metoprolol Tartrate [Lopressor] 12.5 mg PO BID 09/07/24 09/07/24 History Midazolam [Nayzilam] 1 spray NASAL DIRECTED PRN 09/07/24 09/07/24 History Mupirocin 2% Oint [Bactroban 2% 1 applic TOPICAL BID 09/07/24 09/07/24 History Oint] OXcarbazepine [Trileptal] 150 mg PO DAILY 09/07/24 09/07/24 History Propranolol LA [Inderal LA] 60 mg PO HS 09/07/24 09/07/24 History Sertraline HCl 150 mg PO DAILY 09/07/24 09/07/24 History Tirzepatide [Mounjaro] 2.5 mg SQ TU 09/07/24 09/07/24 History Allergies Allergy/AdvReac Type Severity Reaction Status Date / Time ketorolac [From Toradol] Allergy Abdominal Verified 08/25/24 18:25 Pain mirtazapine [From Remeron] Allergy Abdominal Verified 08/25/24 18:25 Pain pioglitazone [From Actos] Allergy Abdominal Verified 08/25/24 18:25 Pain acetaminophen AdvReac Nausea & Verified 08/25/24 18:25 [From Tylenol-Codeine #3] Vomiting codeine AdvReac Nausea & Verified 08/25/24 18:25 [From Tylenol-Codeine #3] Vomiting Physical Exam Vitals: Vital Signs Temp Pulse Resp BP Pulse Ox 09/07/24 20:00 75 18 123/76 97 09/07/24 18:00 80 17 129/91 95 09/07/24 16:17 77 18 139/89 97 09/07/24 13:04 74 16 105/86 97 09/07/24 10:58 77 18 119/84 97 09/07/24 07:30 97.6 F 70 16 101/73 96 09/07/24 06:30 71 16 104/80 96 09/07/24 05:36 73 18 106/73 95 09/07/24 03:08 69 16 112/81 95 09/07/24 02:00 77 18 100/63 96 09/07/24 00:00 71 16 127/91 95 09/06/24 23:16 76 16 136/91 96 09/06/24 23:05 98.7 F 76 18 136/91 97 Intake and Output 09/07/24 09/07/24 09/07/24 06:59 14:59 22:59 Other: Weight 79.379 kg Results 09/07/24 03:23 09/07/24 03:23 Cardiac Enzymes 09/07/24 09/07/24 09/07/24 Range/Units 00:15 03:23 03:23 AST 33 (17-59) U/L Troponin I <0.012 <0.012 (0.000-0.034) ng/mL CBC 09/07/24 Range/Units 03:23 WBC 8.4 (3.8-10.6) k/uL RBC 4.57 (4.30-5.90) m/uL Hgb 11.5 L (13.0-17.5) gm/dL Hct 35.6 L (39.0-53.0) % Plt Count 206 (150-450) k/uL Comprehensive Metabolic Panel 09/07/24 Range/Units 03:23 Sodium 135 L (137-145) mmol/L Potassium 4.5 (3.5-5.1) mmol/L Chloride 101 (98-107) mmol/L Carbon Dioxide 28 (22-30) mmol/L BUN 15 (9-20) mg/dL Creatinine 0.83 (0.66-1.25) mg/dL Glucose 139 H (74-99) mg/dL Calcium 9.7 (8.4-10.2) mg/dL AST 33 (17-59) U/L ALT 43 (4-49) U/L Alkaline Phosphatase 85 (38-126) U/L Total Protein 7.4 (6.3-8.2) g/dL Albumin 4.6 (3.5-5.0) g/dL Current Medications Generic Name Dose Route Start Last Admin Trade Name Freq PRN Reason Stop Dose Admin Hydrocodone Bitart/Acetaminophen 1 each 09/07/24 11:19 Hydrocodone/Apap 10-325mg 1 Each Tab PO Q6HR PRN Pain Albuterol Sulfate 2.5 mg 09/07/24 03:15 Albuterol Nebulized 2.5 Mg/3 Ml INHALATION RT-TID PRN Shortness Of Breath Albuterol Sulfate 2.5 mg 09/07/24 03:15 Albuterol Nebulized 2.5 Mg/3 Ml INHALATION RT-Q6H PRN Shortness Of Breath Aspirin 81 mg 09/07/24 09:00 09/07/24 08:28 Aspirin 81 Mg PO Not Given DAILY MARYELLEN Atorvastatin Calcium 40 mg 09/07/24 21:00 09/07/24 22:12 Atorvastatin 40 Mg Tab PO 40 mg HS MARYELLEN Administration Budesonide/Formoterol Fumarate 2 puff 09/07/24 08:00 09/07/24 07:54 Symbicort 160-4.5 Mcg Inhaler INHALATION 2 puff RT-BID MARYELLEN Administration Cyclobenzaprine HCl 10 mg 09/07/24 11:19 Cyclobenzaprine 10 Mg Tab PO TID PRN Pain Dextrose/Water 25 ml 09/07/24 03:18 Dextrose 50% Syringe 50 Ml IVP PER PROTOCOL PRN Hypoglycemia Protocol Dextrose/Water 50 ml 09/07/24 03:18 Dextrose 50% Syringe 50 Ml IVP PER PROTOCOL PRN Hypoglycemia Protocol Ergocalciferol 1,250 mcg 09/10/24 09:00 Ergocalciferol 1,250 Mcg (50,000 Iu) Capsule PO FR MARYELLEN Famotidine 40 mg 09/07/24 21:00 09/07/24 22:12 Famotidine 20 Mg Tab PO 40 mg BID MARYELLEN Administration Ferrous Sulfate 325 mg 09/08/24 09:00 Ferrous Sulfate 325 Mg Tab PO DAILY MARYELLEN Gabapentin 400 mg 09/07/24 16:00 09/07/24 22:13 Gabapentin 400 Mg Cap PO 400 mg TID MARYELLEN Administration Heparin Sodium (Porcine) 5,000 unit 09/07/24 08:00 09/07/24 16:21 Heparin Sodium,Porcine 5,000 Unit/Ml 1 Ml Vial SQ 5,000 unit Q8HR COUNT INCLUDES THE [facility] Administration Insulin Aspart 0 unit 09/07/24 07:30 09/07/24 21:51 Insulin Aspart (Novolog) 100 Unit/Ml Vial SQ Not Given ACHS COUNT INCLUDES THE [facility] Protocol Lamotrigine 75 mg 09/07/24 09:00 09/07/24 22:12 Lamotrigine 25 Mg Tab PO 75 mg BID MARYELLEN Administration Lamotrigine 200 mg 09/07/24 09:00 09/07/24 22:13 Lamotrigine 100 Mg Tab PO 200 mg BID COUNT INCLUDES THE [facility] Administration Levothyroxine Sodium 50 mcg 09/07/24 06:00 09/07/24 06:25 Levothyroxine 50 Mcg Tab PO 50 mcg DAILY@0600 COUNT INCLUDES THE [facility] Administration Lidocaine 1 patch 09/07/24 12:45 09/07/24 13:06 Lidocaine 4% Patch TOPICAL 1 patch DAILY COUNT INCLUDES THE [facility] Administration Protocol Lisinopril 20 mg 09/07/24 09:00 09/07/24 08:28 Lisinopril 20 Mg Tab PO Not Given DAILY COUNT INCLUDES THE [facility] Magnesium Oxide 400 mg 09/06/24 23:30 09/07/24 08:24 Magnesium Oxide 400 Mg Tab PO 400 mg DAILY COUNT INCLUDES THE [facility] Administration Metoprolol Tartrate 12.5 mg 09/07/24 09:00 09/07/24 22:12 Metoprolol Tartrate 12.5 Mg Tab PO 12.5 mg BID COUNT INCLUDES THE [facility] Administration Morphine Sulfate 4 mg 09/06/24 23:29 09/07/24 22:13 Morphine Sulfate 4 Mg/Ml Syringe IV 4 mg Q4HR PRN Administration Severe Pain (Scale 7 to 10) Naloxone HCl 0.2 mg 09/06/24 23:29 Naloxone 0.4 Mg/Ml 1 Ml Vial IV Q2M PRN Opioid Reversal Nitroglycerin 0.5 inch 09/07/24 03:00 09/07/24 11:01 Nitroglycerin Oint 1 Inch/Gm Packet TOPICAL 0.5 inch Q8H COUNT INCLUDES THE [facility] Administration Brivaracetam [ 50 mg 09/07/24 11:30 09/07/24 11:46 Briviact] 50 Mg PO Not Given Tablet BID COUNT INCLUDES THE [facility] Oxcarbazepine 150 mg 09/07/24 09:00 09/07/24 22:11 Oxcarbazepine 150 Mg Tab PO 150 mg BID MARYELLEN Administration Pantoprazole Sodium 40 mg 09/07/24 09:00 09/07/24 08:29 Pantoprazole 40 Mg/10 Ml Vial IV Not Given DAILY MAREYLLEN Sertraline HCl 150 mg 09/08/24 09:00 Sertraline 100 Mg Tab PO DAILY MARYELLEN Tamsulosin HCl 0.4 mg 09/07/24 21:00 09/07/24 22:11 Tamsulosin 0.4 Mg Cap.Er.24h PO 0.4 mg HS MARYELLEN Administration Intake and Output 09/07/24 09/07/24 09/07/24 06:59 14:59 22:59 Other: Weight 79.379 kg 09/07/24 03:23 09/07/24 03:23
[2024-09-08] MEDS: traZODone HCL 100 MG TAB PO SCH (00:30)
[2024-09-08 06:33] LABS: Glucose,Whole Blood 144 mg/dL (70-110)
[2024-09-08] MEDS: SERTRALINE 100 MG TAB PO SCH (08:15)
[2024-09-08] MEDS: FERROUS SULFATE 325 MG TAB PO SCH (08:15)
[2024-09-08 11:50] LABS: Glucose,Whole Blood 272 mg/dL (70-110)
--- NOTE | 2024-09-08 12:01 | PN ---
PROGRESS NOTE This is a 44-year-old gentleman, who was transferred from [facility] apparently for ventricular tachycardia. He was evaluated by my associate, Dr. Gonzalez yesterday. He had a recent cardiac catheterization that revealed [id number] CAD. He had an echocardiogram that showed normal LV systolic function. He has history of bipolar mood disorder. We have not seen the rhythm strips from this recent nonsustained VT. He was supposed to have an event monitor done during his recent admission, but did not. He had prior QT prolongation, but that has since resolved. We have not had any further documented episodes of nonsustained VT. He is currently on aspirin, metoprolol, and Lipitor. PHYSICAL EXAMINATION: GENERAL: On exam, comfortable at rest. VITAL SIGNS: Heart rate is 90 beats per minute. Blood pressure is 106/60, respiratory rate is 18. CHEST: Reveals good air entry bilaterally. HEART: Reveals first and second heart sounds. No gallop. EXTREMITIES: Did not reveal any edema. Peripheral pulses are felt. ASSESSMENT: 1. Nonsustained ventricular tachycardia. 2. Coronary artery disease. PLAN: The patient is stable clinically. We will continue to watch him on telemetry. MMODL / IJN: [id number] /
--- NOTE | 2024-09-08 12:10 | P.PN ---
Subjective Progress Note Date: 09/08/24 Hospital course: Patient is a very pleasant 44-year-old male with a past medical history of hypertension, hyperlipidemia, asthma/COPD not home oxygen dependent, former smoker, insulin-dependent diabetes mellitus, seizure disorder, anxiety with depression, bipolar disorder, panic disorder, and schizophrenia. He presented to the emergency department as a transfer from [facility] where he initially presented with chest pain and found to have acute nonsustained V. tach. Per documentation in chart patient was found to be in ventricular tachycardia with heart rate 200 bpm, however upon obtaining EKG it did not capture event as patient converted to normal sinus rhythm prior to completion of EKG. Upon transfer to our facility, patient underwent evaluation in our emergency department. Vital signs upon arrival show blood pressure 136/ 91, heart rate 76, respiratory rate 18, temp 98.7 F, and SpO2 of 97% on room air. EKG was completed showing normal sinus rhythm at 76 bpm with T wave inversion in lead III otherwise no ST abnormality showing no signs of acute ischemia upon personal review and interpretation. Labs completed and reviewed. CBC showing microcytic anemia with hemoglobin of 11.5 and MCV of 77.9. BMP showing sodium 135, potassium 4.5, renal function unremarkable. Blood glucose 139. Magnesium 2.1. Liver profile unremarkable. Troponin was negative at less than 0.012. Patient was admitted under our services with consultation to cardiology. Physical exam: Patient seen and fully evaluated at bedside. He was sleeping and easily awoken via verbal stimuli. Patient denied any complaints at this time. Vital signs reviewed and stable. General: Nontoxic, no distress and appears stated age. Derm: Skin warm and dry, normal coloration for ethnicity. Head: Atraumatic, normocephalic and symmetric. Eyes: EOM's intact, no lid lag, and anicteric sclera Mouth: no lip lesions, mucus membranes moist Cardiovascular: regular rate and rhythm with normal S1S2, no murmur, positive posterior tibial pulses bilaterally, and cap refill < 2 seconds. Lungs: Respirations even, regular, and unlabored on room air. Lungs CTA bilaterally, no rhonchi, no rales, no wheezing, and no accessory muscle usage. Abdominal: soft, nontender to palpation, no guarding, no appreciable or ganomegaly Ext: ROM intact. No gross muscle atrophy, no edema, no contractures Neuro: Speech clear, face symmetrical and CN II-XII grossly intact with no noted focal neuro deficits Psych: Alert and oriented to person, place, time, and situation. Appropriate and pleasant affect. Assessment and Plan of Care: Reports of nonsustained V. tach Chest pain, rule out acute coronary event Hypertension Hyperlipidemia -Cardiology consulted, appreciate recommendations -Telemetry monitoring -Troponins negative at less than 0.012 x 2 draws. -Continue cardiac medication regimen with aspirin 81 mg daily, atorvastatin 40 mg daily, lisinopril 20 mg daily, and metoprolol 12.5 mg twice daily -Order placed for TSH with reflex free T4 -Order placed for urine drug screen Vital signs reviewed. Blood pressure soft this morning at 96/69, heart rate 89, respiratory rate 18, temp 97.8 F, and SpO2 of 93% on room air. Hypothyroidism -Continue levothyroxine 50 mcg daily. Follow-up on TSH with reflex free T4. COPD/asthma -Not home oxygen dependent currently maintaining SpO2 on room air. Patient to continue Symbicort 160-4.5 mcg inhaler 2 puffs twice daily and Ventolin every 6 hours as needed for shortness of breath and/or wheezing. Insulin-dependent diabetes mellitus -Continue glycemic protocol with NovoLog sliding scale. Seizure disorder -Continue brivaracetam 50 mg twice daily Lamictal 275 mg twice daily, and oxcarbazepine 150 mg twice daily. Anxiety with depression Bipolar disorder Panic disorder Schizophrenia -Continue sertraline 150 mg daily, Neurontin 400 mg 3 times daily, brivaracetam 50 mg twice daily Lamictal 275 mg twice daily, and oxcarbazepine 150 mg twice daily. Data and imaging reviewed: Vital signs reviewed. Blood pressure soft this morning at 96/69, heart rate 89, respiratory rate 18, temp 97.8 F, and SpO2 of 93% on room air. Urine drug screen positive for opiates and otherwise negative. TSH 2.360. CODE STATUS: Full code DVT prophylaxis: Heparin Anticipated discharge date: Pending clinical course likely 24 to [address]: Home Patient was seen independently by Nurse Pracitioner. This document was prepared using [employer] dictation software. Please allow for errors in air battle manager, while rare they do occur. Po Perkins NP rendered care for this patient independently, reviewed the findings and plan as documented in the note above and agree with plan. I did not physically speak with or examine the patient on this date. Objective - Vital Signs Vital signs: Vital Signs Temp 98.4 F 09/08/24 04:00 Pulse 91 09/08/24 04:00 Resp 18 09/08/24 04:00 BP 106/71 09/08/24 04:00 Pulse Ox 97 09/08/24 04:00 FiO2 Intake & Output 09/07/24 09/08/24 09/08/24 18:59 06:59 18:59 Intake Total 480 Balance 480 Weight 79.7 kg Intake: Oral 480 Other: Voiding Method Toilet # Voids 0 - Labs CBC & Chem 7: 09/07/24 03:23 09/07/24 03:23 Labs: Abnormal Lab Results - Last 24 Hours (Table) 09/07/24 09/07/24 09/07/24 Range/Units 11:04 11:51 17:55 POC Glucose (mg/dL) 166 H 149 H (70-110) mg/dL Urine Opiates Screen Detected H (NotDetected) 09/07/24 09/08/24 Range/Units 21:47 06:32 POC Glucose (mg/dL) 138 H 144 H (70-110) mg/dL Urine Opiates Screen (NotDetected)
[2024-09-08 16:50] LABS: Glucose,Whole Blood 148 mg/dL (70-110)
[2024-09-08 19:57] LABS: Glucose,Whole Blood 211 mg/dL (70-110)
[2024-09-09 04:20] VITALS: RESP 16
[2024-09-09 05:52] LABS: Glucose,Whole Blood 167 mg/dL (70-110)
[2024-09-09 11:14] VITALS: TEMP 98.4
[2024-09-09 11:47] LABS: Glucose,Whole Blood 158 mg/dL (70-110)
--- NOTE | 2024-09-09 12:38 | P.DS ---
Providers Date of admission: 09/06/24 23:29 Attending physician: Paz Tian MD Consults: 09/06/24 23:29 Consult Physician Routine Consulting Provider: Tian Thacker Consult Reason/Comments: VT,CP Do you want consulting provider notified?: Yes Primary care physician: [facility] Course: Discharge Diagnosis: Reports open nonsustained V. tach HTN HLD Insulin-dependent diabetes mellitus Hpital Course: 44-year-old male with a past medical history of hypertension, hyperlipidemia, asthma/COPD not home oxygen dependent, former smoker, insulin-dependent diabetes mellitus, seizure disorder, anxiety with depression, bipolar disorder, panic disorder, and schizophrenia. He presented to the emergency department as a transfer from [facility] where he initially presented with chest pain and found to have acute nonsustained V. tach. Per documentation in chart patient was found to be in ventricular tachycardia with heart rate 200 bpm, however upon obtaining EKG it did not capture event as patient converted to normal sinus rhythm prior to completion of EKG. Upon transfer to our facility, patient underwent evaluation in our emergency department. Vital signs upon arrival show blood pressure 136/91, heart rate 76, respiratory rate 18, temp 98.7 F, and SpO2 of 97% on room air. EKG was completed showing normal sinus rhythm at 76 bpm with T wave inversion in lead III otherwise no ST abnormality showing no signs of acute ischemia. Troponin was negative at less than 0.012. Patient was admitted under our services with consultation to cardiology. Patient did not have any repeat episodes of sustained arrhythmia on telemetry. EKG reviewed by cardiology, prior history of deep T wave inversions with QTc prolongation in July 2024 resolved on current admission. It was also noted that on his last admission patient was given 30-day event monitor which was mildly lost by patient, no reports seen in the medical records, cardiology recommended to refrain from amiodarone or any other QT prolonging medications, was also recommended to continue his medications including metoprolol 12.5 twice daily, aspirin, Lipitor. Per cardiology, if no further arrhythmia or nonsustained V. tach, patient should be considered cleared from cardiovascular standpoint thus, patient will be discharged home on 09/09/2024 Patient seen and examined at bedside. Not in acute distress, feeling at his baseline, complaining of recurrent back pain Vital signs reviewed and stable. General: [nontoxic], [no distress], [appears at stated age] Derm: [warm], [dry] Head: [atraumatic], [normocephalic], [symmetric] Eyes: [EOMI], [no lid lag], [anicteric sclera] Mouth: [no lip lesion], [mucus membranes moist] Cardiovascular: [S1S2 reg], [no murmur] Lungs: [CTA bilateral], [no rhonchi, no rales] , [no accessory muscle use] Abdominal: [soft], [ nontender to palpation], [no guarding], [no appreciable organomegaly] Ext: [no gross muscle atrophy], [no edema], [no contractures] Neuro: [ CN II-XI grossly intact], [no focal neuro deficits] Psych: [Alert], [oriented], [appropriate affect] A total of 40 minutes were spent preparing this complex discharge summary. Patient Condition at Discharge: Stable Plan - Discharge Summary Discharge Rx Participant: Yes New Discharge Prescriptions: Continue Haloperidol Decanoate [Haldol D] 200 mg IM Q21D lisinopriL 20 mg PO DAILY Levothyroxine Sodium [Synthroid] 50 mcg PO DAILY metFORMIN HCL [Glucophage] 1,000 mg PO BID lamoTRIgine [LaMICtal] 200 mg PO BID lamoTRIgine [LaMICtal] 75 mg PO BID traZODone HCL 225 mg PO HS sitaGLIPtin [Januvia] 100 mg PO DAILY Tamsulosin HCl [Flomax] 0.4 mg PO HS Gabapentin [Neurontin] 400 mg PO TID Ergocalciferol [Vitamin D2 (1250 Mcg = 59509 Iu)] 1,250 unit PO FR Magnesium Oxide [Mag-Ox] 400 mg PO DAILY Atorvastatin [Lipitor] 40 mg PO HS Albuterol Nebulized [Ventolin Nebulized] 2.5 mg INHALATION RT-TID PRN PRN Reason: Shortness Of Breath Aspirin 81 mg PO DAILY tab Cyclobenzaprine [Flexeril] 10 mg PO TID PRN #30 tab PRN Reason: Pain Lidocaine 4% Patch 1 patch TOPICAL DAILY PRN 14 Days #14 patch PRN Reason: Pain Mupirocin 2% Oint [Bactroban 2% Oint] 1 applic TOPICAL BID Brivaracetam [Briviact] 50 mg PO BID HYDROcodone/APAP 10-325MG [Rudy 10-325] 1 tab PO Q6HR PRN PRN Reason: Pain Albuterol Sulfate [Albuterol Sulfate Hfa] 2 puff INHALATION RT-Q6H PRN PRN Reason: Shortness Of Breath tiZANidine [Zanaflex] 4 mg PO TID Insulin NPH Hum/Reg Insulin Hm [humuLIN 70/30 Kwikpen] 40 unit SQ W/BRKFST Insulin NPH Hum/Reg Insulin Hm [humuLIN 70/30 Kwikpen] 20 unit SQ W/SUPPER Ferrous Sulfate [Iron (65 MG Elemental)] 325 mg PO DAILY Budesonide-Formot 160-4.5 Mcg [Symbicort 160-4.5 Mcg Inhaler] 2 puff INHALATION RT-BID #1 each Lactulose 10 gm PO BID PRN PRN Reason: Constipation Cholecalciferol [Vitamin D3 (125 Mcg = 5000 Iu)] 125 mcg PO DAILY Meloxicam [Mobic] 15 mg PO DAILY PRN #30 tab PRN Reason: Pain Midazolam [Nayzilam] 1 spray NASAL DIRECTED PRN PRN Reason: Seizures Clobetasol Propionate [Temovate 0.05% Oint] 1 applic TOPICAL BID Famotidine [Pepcid] 40 mg PO BID Tirzepatide [Mounjaro] 2.5 mg SQ TU Metoprolol Tartrate [Lopressor] 12.5 mg PO BID Sertraline HCl 150 mg PO DAILY OXcarbazepine [Trileptal] 150 mg PO DAILY Discontinued Propranolol LA [Inderal LA] 60 mg PO HS Discharge Medication List Haloperidol Decanoate [Haldol D] 200 mg IM Q21D 07/31/14 [History] Levothyroxine Sodium [Synthroid] 50 mcg PO DAILY 12/07/19 [History] lamoTRIgine [LaMICtal] 200 mg PO BID 12/07/19 [History] lisinopriL 20 mg PO DAILY 12/07/19 [History] metFORMIN HCL [Glucophage] 1,000 mg PO BID 12/07/19 [History] Albuterol Sulfate [Albuterol Sulfate Hfa] 2 puff INHALATION RT-Q6H PRN 02/07/23 [History] Gabapentin [Neurontin] 400 mg PO TID 02/07/23 [History] Insulin NPH Hum/Reg Insulin Hm [humuLIN 70/30 Kwikpen] 20 unit SQ W/SUPPER 02/07/23 [History] Insulin NPH Hum/Reg Insulin Hm [humuLIN 70/30 Kwikpen] 40 unit SQ W/BRKFST 02/07/23 [History] Tamsulosin HCl [Flomax] 0.4 mg PO HS 02/07/23 [History] lamoTRIgine [LaMICtal] 75 mg PO BID 02/07/23 [History] sitaGLIPtin [Januvia] 100 mg PO DAILY 02/07/23 [History] tiZANidine [Zanaflex] 4 mg PO TID 02/07/23 [History] traZODone HCL 225 mg PO HS 02/07/23 [History] Ferrous Sulfate [Iron (65 MG Elemental)] 325 mg PO DAILY 02/09/24 [History] Budesonide-Formot 160-4.5 Mcg [Symbicort 160-4.5 Mcg Inhaler] 2 puff INHALATION RT-BID #1 each 02/21/24 [Rx] Ergocalciferol [Vitamin D2 (1250 Mcg = 49675 Iu)] 1,250 unit PO FR 03/30/24 [History] Albuterol Nebulized [Ventolin Nebulized] 2.5 mg INHALATION RT-TID PRN 07/23/24 [History] Atorvastatin [Lipitor] 40 mg PO HS 07/23/24 [History] Cholecalciferol [Vitamin D3 (125 Mcg = 5000 Iu)] 125 mcg PO DAILY 07/23/24 [History] Lactulose 10 gm PO BID PRN 07/23/24 [History] Magnesium Oxide [Mag-Ox] 400 mg PO DAILY 07/23/24 [History] Aspirin 81 mg PO DAILY tab 07/27/24 [Rx] Cyclobenzaprine [Flexeril] 10 mg PO TID PRN #30 tab 07/27/24 [Rx] Meloxicam [Mobic] 15 mg PO DAILY PRN #30 tab 08/06/24 [Rx] Lidocaine 4% Patch 1 patch TOPICAL DAILY PRN 14 Days #14 patch 08/25/24 [Rx] Brivaracetam [Briviact] 50 mg PO BID 09/07/24 [History] Clobetasol Propionate [Temovate 0.05% Oint] 1 applic TOPICAL BID 09/07/24 [History] Famotidine [Pepcid] 40 mg PO BID 09/07/24 [History] HYDROcodone/APAP 10-325MG [Rudy 10-325] 1 tab PO Q6HR PRN 09/07/24 [History] Metoprolol Tartrate [Lopressor] 12.5 mg PO BID 09/07/24 [History] Midazolam [Nayzilam] 1 spray NASAL DIRECTED PRN 09/07/24 [History] Mupirocin 2% Oint [Bactroban 2% Oint] 1 applic TOPICAL BID 09/07/24 [History] OXcarbazepine [Trileptal] 150 mg PO DAILY 09/07/24 [History] Sertraline HCl 150 mg PO DAILY 09/07/24 [History] Tirzepatide [Mounjaro] 2.5 mg SQ TU 09/07/24 [History] Follow up Appointment(s)/Referral(s): Reta Sheppard MD [Primary Care Provider] - 1-2 days Activity/Diet/Wound Care/Special Instructions: Please, follow up with your PCP. Please, monitor your blood pressure daily. If your blood pressure is consistently below 100s-please, contact your primary care provider. Discharge Disposition: HOME SELF-CARE
[2024-09-09 13:40] VITALS: BP 105/77; PULSE 77
[2024-09-10] MEDS ORDERED: ERGOCALCIFEROL 1,250 MCG (50,000 IU) CAPSULE PO SCH (09:00)
== END 2024-09-09 13:38 | disposition home or self-care (01) ==
LOC: EC 23:03 → 3SCARD 23:29 → INTOOBSV 23:29 → 3SCARD 09-07 01:22 → UNDODISIN 09-09 13:38
PROVIDERS: ADMIT Internal Medicine; ATTEND Internal Medicine
DX: I47.19 Other supraventricular tachycardia (principal); E83.42 Hypomagnesemia; R07.2 Precordial pain; M54.9 Dorsalgia, unspecified; E11.65 Type 2 diabetes mellitus with hyperglycemia; I25.10 Atherosclerotic heart disease of native coronary artery without angina pectoris; I10 Essential (primary) hypertension; G40.909 Epilepsy, unspecified, not intractable, without status epilepticus; E78.5 Hyperlipidemia, unspecified; K21.9 Gastro-esophageal reflux disease without esophagitis; J44.89 Other specified chronic obstructive pulmonary disease; F31.9 Bipolar disorder, unspecified; F20.9 Schizophrenia, unspecified; F41.0 Panic disorder [episodic paroxysmal anxiety]; E03.9 Hypothyroidism, unspecified; Z86.73 Personal history of transient ischemic attack (TIA), and cerebral infarction without residual deficits; Z87.891 Personal history of nicotine dependence; Z79.1 Long term (current) use of non-steroidal anti-inflammatories (NSAID); Z79.4 Long term (current) use of insulin; Z79.51 Long term (current) use of inhaled steroids; Z79.82 Long term (current) use of aspirin; Z79.84 Long term (current) use of oral hypoglycemic drugs; Z79.890 Hormone replacement therapy; Z79.899 Other long term (current) drug therapy; Z88.5 Allergy status to narcotic agent; Z88.6 Allergy status to analgesic agent
CPT/HCPCS: 96376 ×4; 96372 ×3; 96365; 96366; 96374; 99285; 36415; 94640 ×4; 93005; 80053; 84443; 83735; 84100; 84484; 85025; 80306; 83036; G0378 ×4; J2270 ×4; J1644 ×3; J3475; 96375

== ENCOUNTER → 2024-11-09 | Outpatient (CLI) | payer OTHER ==
[2024-11-09 19:44] LABS: Hepatitis B Surface Antigen Nonreactive (Nonreactive)
[2024-11-09 20:02] LABS: ALT 20 U/L (10-49); AST 24 U/L (14-35); Albumin 4.4 g/dL (3.8-4.9); Albumin/Globulin Ratio 1.63 Ratio (1.60-3.17); Alkaline Phosphatase 96 U/L (41-126); Alpha Fetoprotein, Tumor Mkr <3.00 ng/mL (0.00-7.90); BUN/Creat Ratio 8.67 Ratio (12.00-20.00); Blood Urea Nitrogen 7.8 mg/dL (9.0-27.0); Carbon Dioxide 25.4 mmol/L (21.6-31.8); Chloride 101 mmol/L (96-109); Globulin 2.7 g/dL (1.6-3.3); Glucose 108 mg/dL (70-110); Potassium 4.6 mmol/L (3.5-5.5); Sodium 139 mmol/L (135-145); Total Bilirubin 0.2 mg/dL (0.3-1.2); Total Protein 7.1 g/dL (6.2-8.2)
== END | disposition home or self-care (01) ==
LOC: LABWHC1 15:10
PROVIDERS: ATTEND Internal Medicine Gastroenterology
DX: B18.2 Chronic viral hepatitis C (principal)
CPT/HCPCS: 36415; 80053; 81596; 82105; 86704; 87340

== ENCOUNTER → 2025-03-25 | Outpatient (CLI) | payer OTHER | END | disposition home or self-care (01) | LOC: LABWHC1 14:03 | PROVIDERS: ATTEND Psychiatry & Neurology Neurology | DX: Z86.73 Personal history of transient ischemic attack (TIA), and cerebral infarction without residual deficits (principal) | CPT/HCPCS: 36415; 80175; 80183 ==